=== PATIENT | female | born 1940 | race Caucasian/White ===

== ENCOUNTER 2018-11-23 19:42 | Inpatient (IN) | payer MEDICARE, SELFPAY ==
[2018-11-23] VITALS (7 sets, daily range): BP systolic 97–136; BP diastolic 52–95; PULSE 78–126; RESP 13–19; TEMP 37.1–37.2; O2SAT 96–100; BMI 24.3
--- NOTE | 2018-11-23 19:43 | ED.RN ---
CALLED FOR EKG PER RN REQUEST, PULLED OLD EKGS FOR
[2018-11-23 19:56] LABS: Bedside Glucose 135 mg/dL (70-110)
--- NOTE | 2018-11-23 19:59 | EKG12_ITS ---
Test Reason : Blood Pressure : / mmHG Vent. Rate : 123 BPM Atrial Rate : 123 BPM P-R Int : 142 ms QRS Dur : 082 ms QT Int : 284 ms P-R-T Axes : 057 001 124 degrees QTc Int : 406 ms Sinus tachycardia Possible Left atrial enlargement Low voltage QRS Nonspecific ST and T wave abnormality Abnormal ECG Confirmed by YEMI MEADE, JEAN CARLOS ([id number]), purchase request editor MICHELE CARUSO ([id number]) on 11/26/2018 12:52:55 PM Referred By: ANDREAS Confirmed By:JEAN CARLOS BRAGG MD
--- NOTE | 2018-11-23 20:01 | RAD_ITS ---
STUDY: X-RAY - RIGHT HIP REASON FOR EXAM: Female, 78 years old. Weakness. Fall. Pain. TECHNIQUE: 4 views of the hip. COMPARISON: None. FINDINGS: There is generalized osteopenia. There is a right total hip arthroplasty in anatomic alignment. No complications are identified. There is mild arthrosis of the left hip. Normal visualized superior and inferior pubic rami and ischial tuberosities. RAD/HIP, UNI W/ Pelvis 2-3 Views IMPRESSION: No acute abnormality. Electronically Signed: Nathaniel Mane MD at 20:43 EST , Service support ,
--- NOTE | 2018-11-23 20:01 | RAD_ITS ---
STUDY: X-RAY - RIGHT SHOULDER REASON FOR EXAM: Female, 78 years old. Weakness. Possible fall. TECHNIQUE: 2 view(s) of the shoulder. COMPARISON: None. FINDINGS: There is generalized osteopenia. There is mild arthrosis of the glenohumeral joint. There is mild arthrosis of the acromioclavicular joint. Normal acromion. There is sclerosis and cystic change in the greater tuberosity of the humeral head. The soft tissue structures are unremarkable. Normal visualized pulmonary apex. RAD/Shoulder min 2 Views IMPRESSION: Osteopenia with osteoarthrosis as described. No acute pathology. Electronically Signed: Nathaniel Mane MD at 20:42 EST , Service support ,
--- NOTE | 2018-11-23 20:01 | CT_ITS ---
STUDY: CT BRAIN WITHOUT CONTRAST REASON FOR EXAM: Female, 78 years old. Fall. Weakness. RADIATION DOSAGE (If Supplied By Facility): CTDIvol = ( 44.99 ) mGy, DLP = ( 779.24 ) mGycm TECHNIQUE: Transaxial CT imaging of the brain was performed without administration of intravenous contrast material. Individualized dose optimization techniques were used for this CT. COMPARISON: None. FINDINGS: There is no acute bleed or infarct. There are chronic ischemic and atrophic changes. The ventricles are normal in configuration. There is no hydrocephalus. The visualized paranasal sinuses are clear. The mastoid air cells are well aerated. There is no skull fracture. CT/Brain/Head without Contrast IMPRESSION: No acute intracranial abnormality. Chronic ischemic and atrophic changes. Electronically Signed: Antoni Henderson, at 20:48 EST Tel , Service support ,
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
--- NOTE | 2018-11-23 20:17 | RAD_ITS ---
STUDY: X-RAY CHEST REASON FOR EXAM: Female, 78 years old. Weakness. Possible fall. TECHNIQUE: Single frontal view of the chest. COMPARISON: None. FINDINGS: The lungs are hyperexpanded and there are healed granulomatous calcifications. There is no demonstrated pleural abnormality. There is moderate cardiomegaly. Normal mediastinum and patricia. Normal visualized pulmonary arteries. There is atherosclerotic calcification of the aortic arch with tortuosity. Normal visualized thoracic spine. Normal visualized ribs, clavicles, and shoulders. There is no demonstrated abnormality of the visualized soft tissue structures of the upper abdomen. RAD/Chest 1 View (Portable) IMPRESSION: Moderate cardiomegaly with hyperexpansion. No acute abnormality. Electronically Signed: Nathaniel Mane MD at 20:41 EST , Service support ,
[2018-11-23 20:19] LABS: International Normalized Ratio 1.1; Partial Thromboplast Time 25.2 Seconds (24.1-36.2); Prothrombin Time (Protime)PT. 13.9 SECONDS (11.7-14.9)
[2018-11-23 20:28] LABS: Absolute Lymphocyte Count 0.88 X10^3/ul (0.83-4.51); Absolute Neutrophil Count 4.6 X10^3/uL (2.0-7.7); Basophil# 0.09 X10^3/uL; Basophil% 1.5 % (0-1); Eosinophil# 0.05 X10^3/uL; Eosinophils% 0.8 % (0-5); Hematocrit 12.9 % (37-47); Lymphocyte # 0.88 X10^3/ul (4.0); Lymphocyte % 14.4 % (19-41); Mean Corp Hgb Conc 25.6 g/gl (32-36); Mean Corpuscular Hgb 15.7 pg (27.0-32.0); Mean Corpuscular Volume 61.4 fL (81-99); Mean Platelet Vol. 8.8 fl (6.2-12.0); Monocyte# 0.51 X10^3/uL; Monocyte% 8.3 % (0-10); Neutrophil # 4.58 X10^3/uL (2.7-7.7); Neutrophil % 74.8 % (47-70); Platelet Count 330 K/mm3 (150-450); RBC Distribution Width CV 19.5 % (11.6-14.6); RBC Distribution Width SD 44.4 fl (35.1-43.9); White Blood Count 6.1 K/mm3 (4.4-11.0)
--- NOTE | 2018-11-23 20:29 | ED.RN ---
lab called result on this of hemoglobin of 3.3, dr sanchez notified. nfo at this time.
[2018-11-23 20:30] LABS: ALB/GLOB Ratio 1.1 RATIO (0.9-2.4); AST(SGOT) 7 U/L (15-37); Alanine Aminotransfer ALT/SGPT 12 U/L (13-56); Albumin, Serum 3.2 g/dL (3.2-5.0); Alkaline Phosphatase 50 U/L (45-117); Anion Gap 9 (5-15); BUN 21 mg/dL (7-18); BUN/Creat Ratio 11.1 RATIO (10-20); Calcium,Total 8.2 mg/dL (8.5-10.1); Chloride 100 mmol/L (98-107); Differential Indicated SCAN CRITERIA MET; EST Glomerular Filtration Rate 27 mL/min (>60); Est Glom Filt Rate - Afr Amer 33 mL/min (>60); Globulin 2.9 g/dL (2.2-4.2); Glucose 150 mg/dL (74-106); Hemoglobin 3.3 g/dl (12.0-15.0); POSITIVE COUNT YES; POSITIVE DIFFERENTIAL NO; POSITIVE MORPHOLOGY YES; Potassium 3.5 mmol/L (3.5-5.1); Protein, Total 6.1 g/dL (6.4-8.2); Sodium Level 133 mmol/L (136-145)
[2018-11-23 20:32] LABS: Lactic Acid 1.5 mmol/L (0.4-2.0)
[2018-11-23 20:57] LABS: Alcohol, Blood (Medical)-Serum < 3.0 mg/dL
[2018-11-23 21:31] LABS: Anisocytosis 2+; Hypochromasia 3+; Platelet Estimate ADEQUATE (ADEQ)
--- NOTE | 2018-11-23 21:40 | ED.RN ---
pt tolerating blood transfusion,unit increased to 150cc/hr,will monitor.
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
--- NOTE | 2018-11-23 23:25 | ED.RN ---
first unit of prbc flushing with normal saline.second iv started in l hand,flsuhed without difficult.
--- NOTE | 2018-11-23 23:40 | NURSING ---
Pt arrives to ICU, awake and oriented. Pt appears without distress and has no complaints. Orientation to room and call light provided.
[2018-11-24] VITALS (35 sets, daily range): BP systolic 104–166; BP diastolic 57–109; PULSE 59–107; RESP 15–23; TEMP 36.5–37.2; O2SAT 93–100; BMI 23.1
--- NOTE | 2018-11-24 00:08 | ED.RN ---
2356 report given to jesus kim.
--- NOTE | 2018-11-24 00:32 | ED.RN ---
2348 ONE UNIT PRBC FINISHED FLUSHING AND COMPLETE WITHOUT DISTRESS.
[2018-11-24 01:20] LABS: Ferritin 5 ng/mL (8-252); Iron 213 ug/dL (50-170); Iron Binding Capacity,Total 406 ug/dL (250-450); LDH 174 U/L (84-246); PERCENT IRON SATURATION 52.5 % (15.0-55.0)
--- NOTE | 2018-11-24 01:25 | ED.RN ---
2300 PT STATED SHE NEEDED TO VOID AND REFUSED A BED CAMPUZANO,WITH ASSIST OF ONE HELPED UP TO THE BSC.PT STATED AFTER ABOUT 5 MINUTES THAT SHE DID NOT HAVE TO GO AFTER ALL.WITH ONE ASSIST HELPED PT BACK TO THE BED.PT TOLERATED WITH DISTRESS.
[2018-11-24 01:55] LABS: Mucous, Urine 0 SEEN /hpf (<or=2+); Red Blood Cells-Urine 0 SEEN /hpf (0-5); Squamous Epithelial Cells - UA 0 SEEN /hpf (5-10)
[2018-11-24 02:00] LABS: Color, Urine Yellow (Yellow); Glucose, Dipstick Normal (Normal); Ketone-Dipstick Negative (Negative); Leukocyte Esterase-Dipstick 25 /ul (Negative); Nitrite-Dipstick Positive (Negative); Occult Blood-Urine Negative /ul (Negative); Protein-Dipstick Negative (Negative); Urine Bilirubin Dipstick Negative (Negative); Urine Clarity Clear (Clear); Urine Urobilinogen Normal (Normal)
[2018-11-24 02:06] LABS: Bacteria 3+ /hpf (None Seen)
[2018-11-24 02:07] LABS: White Blood Cells 0-5 SEEN /hpf (0-5)
[2018-11-24 02:15] LABS: Amphetamine Urine VISTA NEGATIVE (<1000 ng/mL); Barbiturate Urine VISTA NEGATIVE (< 200 ng/mL); Benzodiazepine Urine VISTA NEGATIVE (< 200 ng/mL); Cocaine Urine VISTA NEGATIVE (< 300 ng/mL); Ecstacy Urine VISTA NEGATIVE (< 500 ng/mL); Methadone Urine VISTA NEGATIVE (< 300 ng/mL); PCP Urine VISTA NEGATIVE (< 25 ng/mL); THC Urine VISTA NEGATIVE (< 50 ng/mL); Vista UDS pH Range 6
[2018-11-24 03:56] LABS: Differential Indicated SCAN CRITERIA MET; Hematocrit 18.9 % (37-47); Mean Corp Hgb Conc 28.6 g/gl (32-36); Mean Platelet Vol. 8.6 fl (6.2-12.0); Neutrophil % 72.1 % (47-70); POSITIVE COUNT YES; POSITIVE DIFFERENTIAL NO; POSITIVE MORPHOLOGY YES; Platelet Count 289 K/mm3 (150-450); RBC Distribution Width CV 25.2 % (11.6-14.6); RBC Distribution Width SD 63.1 fl (35.1-43.9); White Blood Count 6.5 K/mm3 (4.4-11.0)
[2018-11-24 03:57] LABS: Absolute Lymphocyte Count 0.95 X10^3/ul (0.83-4.51); Absolute Neutrophil Count 4.7 X10^3/uL (2.0-7.7); Basophil# 0.06 X10^3/uL; Basophil% 0.9 % (0-1); Eosinophil# 0.07 X10^3/uL; Eosinophils% 1.1 % (0-5); Lymphocyte # 0.95 X10^3/ul (4.0); Lymphocyte % 14.6 % (19-41); Monocyte# 0.72 X10^3/uL; Monocyte% 11.1 % (0-10)
[2018-11-24 04:00] LABS: Hemoglobin 5.4 g/dl (12.0-15.0)
[2018-11-24 04:12] LABS: Anion Gap 11 (5-15); BUN 21 mg/dL (7-18); BUN/Creat Ratio 13.5 RATIO (10-20); Chloride 105 mmol/L (98-107); Creatinine, Serum 1.55 mg/dL (0.55-1.02); EST Glomerular Filtration Rate 35 mL/min (>60); Est Glom Filt Rate - Afr Amer 42 mL/min (>60); Estimated Creatinine Clearance 30.03 ml/min; Glucose 93 mg/dL (74-106); Potassium 3.6 mmol/L (3.5-5.1); Sodium Level 139 mmol/L (136-145)
[2018-11-24 04:38] LABS: Anisocytosis 1+; Differential Comment SCAN; Hypochromasia 2+; Microcytosis 2+
[2018-11-24] MEDS: tiZANidine HCl 2 MG Tablet PO ×3 (06:00→21:08)
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
--- NOTE | 2018-11-24 08:11 | ECHOD_ITS ---
Reason For Study: Dyspnea/SOB Procedure This was a 2D Doppler, Color Flow transthoracic echocardiogram. The study was technically difficult. Exam performed portable in ICU/CCU. Left Ventricle Normal LV size. Left ventricular systolic function is normal. The estimated ejection fraction is 55 %. Diastolic function is indeterminate. No regional wall motion abnormalities noted. Right Ventricle Normal RV size. Normal systolic function. Atria The left atrium is mildly enlarged. Normal right atrium. No doppler evidence for ASD. Mitral Valve There is no mitral annular calcification. Normal mitral valve. Mild-Moderate (1-2+) mitral valve insufficiency. Tricuspid Valve Normal tricuspid valve. Moderate (2+) tricuspid valve insufficiency. Right ventricular systolic pressure estimated to be 48 mmHg. Aortic Valve Trisinus/trileaflet aortic valve. Mild focal aortic valve calcification. Trivial aortic valve insufficiency. Pulmonic Valve The pulmonic valve is not well visualized. Trivial pulmonic valve insufficiency. Great Vessels Normal sized aortic root. Pericardium/Pleural No pericardial effusion. MMode/2D Measurements & Calculations LVIDd: 4.4 cm IVSd: 1.4 cm Ao root diam: 3.1 cm LVIDs: 3.2 cm LVPWd: 1.2 cm LA dimension: 2.9 cm RVDd: 3.9 cm FS: 27.7 % LAV(MOD-bp): 58.7 ml LVAd ap4: 28.5 cm2 SV(MOD-sp4): 42.6 ml LAV(MOD-bp) Indexed: 33.2 ml/m2 EDV(MOD-sp4): 87.4 ml LAV(MOD-sp2): 53.3 ml EDV(sp4-el): 89.0 ml LAV(MOD-sp4): 60.4 ml LVAs ap4: 19.5 cm2 ESV(MOD-sp4): 44.7 ml ESV(sp4-el): 44.0 ml EF(MOD-sp4): 48.8 % EF(sp4-el): 50.6 % SV(sp4-el): 45.0 ml LA A4 area: 21.9 cm2 RA A4 area: 17.2 cm2 Time Measurements MV dec time: 0.19 sec Doppler Measurements & Calculations MV E max enrrique: 70.6 cm/sec Lat Peak E' Enrrique: 9.6 cm/sec Med Peak E' Enrrique: 6.6 cm/sec MV A max enrrique: 100.3 cm/sec E/E' lat: 7.3 E/E' med: 10.6 MV E/A: 0.70 MV V2 max: 102.2 cm/sec MV P1/2t max enrrique: 78.1 cm/sec Ao V2 max: 101.9 cm/sec MV max P.2 mmHg MV P1/2t: 57.6 msec Ao max P.2 mmHg MV V2 mean: 48.0 cm/sec MV mean P.2 mmHg MV dec slope: 397.4 cm/sec2 MV V2 VTI: 31.4 cm MVA(P1/2t): 3.8 cm2 LV V1 max: 85.2 cm/sec MR max enrrique: 506.7 cm/sec PA V2 max: 65.2 cm/sec LV V1 max P.9 mmHg MR max P.7 mmHg MR mean enrrique: 404.2 cm/sec MR mean P.2 mmHg MR VTI: 199.4 cm TR max enrrique: 317.3 cm/sec TR max P.3 mmHg Interpretation Summary The study was technically difficult. Left ventricular systolic function is normal. The estimated ejection fraction is 55 %. The left atrium is mildly enlarged. Mild-Moderate (1-2+) mitral valve insufficiency. Moderate (2+) tricuspid valve insufficiency. Mild focal aortic valve calcification. Trivial aortic valve insufficiency. Trivial pulmonic valve insufficiency. Right ventricular systolic pressure estimated to be 48 mmHg. Diastolic function is indeterminate. Ordering Physician: Javad Bennett Referring Physician: KELLEY Christensen M.D. Performed By: Adonis Rebollar RCS
[2018-11-24] MEDS: 0.9% NaCl Peripheral Flush Adult/Peds IV (08:28)
[2018-11-24 08:57] LABS: Immature Platelet Fraction 4.1 % (1.0-7.9); RET-HE 14.2 pg (30-35)
[2018-11-24] MEDS: CHLORHEXIDINE GLUC 2% CLOTH 1 EACH TOWELETTE TOPICAL (10:04)
[2018-11-24 10:26] LABS: Hematocrit 25.5 % (37-47); Hemoglobin 7.8 g/dl (12.0-15.0)
--- NOTE | 2018-11-24 11:31 | CASEMGMT ---
JOSE MOONEY assessment: Face to Face with patient for initial transition planning/care coordination assessment. JOSE MOONEY introduced self and role at [facility], pt voices understanding and consents to assessment at this time. Pt is lying in bed in no distress at this time. Pt is A/Ox4 at this time and answers questions appropriately at this time. Care providers, pharmacy, and demographics verified at this time. PCP: [facility] Specialists: Pt states currently has no specialists. Preferred Pharmacy: [facility] Insurance: [facility] Prescription Benefit: [facility] Living Will/HPOA: Pt states has LW/HPOA but they are not currently on file at [facility] at this time. Pt states her daughters are HPOA. LNOK: Greer Valdez, daughter; Patito Vilchis, daughter Living Arrangements: Pt states lives alone in a mobile home and states no concerns at home at this time. Pt states that she has been completing ADL's at home. Transportation: Pt states she quit driving in July 2018 but family drives and states no transportation concerns at this time. DME/HHC: Pt states has a shower chair, walker, cane, and w/c and states no need for any further DME at this time. Pt states no hx HHC or SNF in the past. Pt states no concerns with going home at time of discharge. Pt is disabled. Pt states does not smoke or drink ETOH. Pt states no further concerns/needs at this time. CM to follow for any further discharge planning/needs. Advised pt to ask for CM if any further questions/concerns/needs arise, voices understanding. Plan: Home, pending PT/OT [place]. SStgudelia GARCIA CM
[2018-11-24] MEDS: Gabapentin 100 MG Capsule 200 MG PO ×2 (12:16→17:03)
[2018-11-24] MEDS: DULoxetine Hcl 60 MG Capsule PO (12:16)
[2018-11-24] MEDS: Cephalexin 500 MG Capsule PO ×2 (13:24→21:08)
[2018-11-24 16:11] LABS: Hematocrit 27.1 % (37-47); Hemoglobin 8.5 g/dl (12.0-15.0)
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
[2018-11-24] MEDS: traZODone 100 MG Tablet PO (21:08)
[2018-11-24] MEDS: Pantoprazole Sodium 40 MG Tablet PO (21:08)
[2018-11-25 02:29] VITALS: BP 126/65; PULSE 71; RESP 16; TEMP 36.2; O2SAT 96
[2018-11-25] MEDS: Cephalexin 500 MG Capsule PO ×3 (05:08→19:31)
[2018-11-25] MEDS: tiZANidine HCl 2 MG Tablet PO ×2 (05:08→13:18)
[2018-11-25 07:08] LABS: Absolute Lymphocyte Count 0.73 X10^3/ul (0.83-4.51); Basophil# 0.06 X10^3/uL; Basophil% 0.8 % (0-1); Eosinophil# 0.09 X10^3/uL; Eosinophils% 1.2 % (0-5); Hematocrit 26.9 % (37-47); Hemoglobin 8.4 g/dl (12.0-15.0); Lymphocyte # 0.73 X10^3/ul (4.0); Lymphocyte % 9.5 % (19-41); Mean Corp Hgb Conc 31.2 g/gl (32-36); Mean Corpuscular Hgb 22.7 pg (27.0-32.0); Mean Corpuscular Volume 72.7 fL (81-99); Mean Platelet Vol. 8.8 fl (6.2-12.0); Monocyte# 0.77 X10^3/uL; Neutrophil # 6.04 X10^3/uL (2.7-7.7); Neutrophil % 78.1 % (47-70); Platelet Count 237 K/mm3 (150-450); RBC Distribution Width SD 61.1 fl (35.1-43.9); White Blood Count 7.7 K/mm3 (4.4-11.0)
[2018-11-25 07:17] VITALS: BP 131/81; PULSE 66; RESP 16; TEMP 36.3; O2SAT 96
[2018-11-25 07:23] LABS: Differential Indicated SCAN CRITERIA MET; POSITIVE COUNT NO; POSITIVE DIFFERENTIAL NO; POSITIVE MORPHOLOGY YES
[2018-11-25 07:29] LABS: Anion Gap 9 (5-15); BUN 16 mg/dL (7-18); BUN/Creat Ratio 15.1 RATIO (10-20); Calcium,Total 8.2 mg/dL (8.5-10.1); Chloride 105 mmol/L (98-107); Creatinine, Serum 1.06 mg/dL (0.55-1.02); EST Glomerular Filtration Rate 54 mL/min (>60); Est Glom Filt Rate - Afr Amer 65 mL/min (>60); Estimated Creatinine Clearance 43.69 ml/min; Glucose 139 mg/dL (74-106); Magnesium 1.7 mg/dL (1.6-2.6); Phosphorus 2.1 mg/dL (2.5-4.9); Potassium 3.2 mmol/L (3.5-5.1); Sodium Level 137 mmol/L (136-145)
[2018-11-25 07:42] LABS: Anisocytosis 2+; Differential Comment SCANNED; Hypochromasia 2+; Microcytosis 2+
--- NOTE | 2018-11-25 07:54 | PCM.PN.INT ---
Subjective: Patient transferred out of the intensive care unit yesterday. Patient did well overnight. Patient reports a good appetite and did not have any complications from her standpoint. Patient states she feels back to her baseline. Objective: Echocardiogram was reviewed. This showed an EF of 55% with elevated pulmonary artery pressures of 48. General: Alert, Oriented x3, Cooperative, No apparent distress, - - Speaking in full sentences. HEENT: Atraumatic, PERRLA, EOMI, Normocephalic, - - No scleral icterus or injection noted. Oral: Moist Mucosa, No Gingival or Mucosal Lesions/ Ulcerations Neck: Supple, No JVD, No Nodes, Trachea Midline Lungs: Clear to auscultation, Normal air movement, No rhonchi, No wheeze, No rales, - - Symmetric expansion. No dullness to percussion. Cardiovascular: Regular rate, Regular Rhythm, Normal S1, Normal S2, No murmurs, No rub noted, No Gallop Abdomen: Bowel Sounds Present, Soft, Non Tender, Non-Distended Extremities: No clubbing, No cyanosis, No edema Skin: No rashes, No breakdown Musculoskeletal: No Tenderness to Palpation of Joints or Extremities Lymphatic: No Cervical, Supraclavicular, or Inguinal Adenopathy Neurological: Cranial nerves II-XII grossly intact, Neuro grossly intact Psych/Mental Status: Appropriate, Flat Affect Vital Signs Temp Pulse Resp BP Pulse Ox 36.3 C L 66 16 131/81 H 96 11/25/18 07:17 11/25/18 07:17 11/25/18 07:17 11/25/18 07:17 11/25/18 07:17 Oxygen Flow Rate (L/min) 2 Oxygen Delivery Method Room Air Weight: 61.3 kg Body Mass Index (BMI) 23.1 Finger Stick Blood Glucose 135 Intake and Output for Last 24 Hours 11/23/18 11/24/18 11/25/18 23:59 23:59 23:59 Intake Total 385 / 385 2005 Output Total 950 / 950 Balance 385 / 385 1056 / 1056 Labs (Last 48 Hours) 11/23/18 11/23/18 11/23/18 19:48 19:55 19:55 WBC 6.1 RBC 2.10 L Hgb 3.3 L* Hct 12.9 L MCV 61.4 L MCH 15.7 L MCHC 25.6 L RDW 19.5 H RDW Differential 44.4 H Plt Count 330 MPV 8.8 Immature Gran % (Auto) 0.200 Neut % (Auto) 74.8 H Lymph % (Auto) 14.4 L [place] % (Auto) 8.3 Eos % (Auto) 0.8 Baso % (Auto) 1.5 H Absolute Neuts (auto) 4.6 Absolute Lymphs (auto) 0.88 Total Counted Not Reportable Differential Comment Diff Path Review May foll Platelet Estimate ADEQUATE Immature Plt Fraction Hypochromasia 3+ Anisocytosis 2+ Microcytosis Retic Count Immature Retic Fraction Retic Hgb Equivalent Haptoglobin PT 13.9 INR 1.1 APTT 25.2 Sodium Potassium Chloride Carbon Dioxide Anion Gap BUN Creatinine Estim Creat Clear Calc Est GFR (MDRD) Af Amer Est GFR (MDRD) Non-Af BUN/Creatinine Ratio Glucose Lactic Acid Calcium Phosphorus Magnesium Iron TIBC Iron Saturation Ferritin Total Bilirubin AST ALT Alkaline Phosphatase Lactate Dehydrogenase Troponin I Total Protein Albumin Globulin Albumin/Globulin Ratio Vitamin B12 Folate Urine Color Urine Clarity Urine pH Ur Specific [place] Urine Protein Urine Glucose (UA) Urine Ketones Urine Occult Blood Urine Nitrite Urine Bilirubin Urine Urobilinogen Ur Leukocyte Esterase Urine RBC Urine WBC Ur Squamous Epith Cells Urine Bacteria Urine Mucus Urine Opiates Screen Urine Methadone Screen Ur Barbiturates Screen Ur Phencyclidine Scrn Ur Amphetamines Screen U Methamphetamin-MDMA U Benzodiazepines Scrn Urine Cocaine Screen U Cannabinoids Screen Ur Drug Screen Comment Ethyl Alcohol POC Glucose 135 H Blood Type Antibody Screen Crossmatch 11/23/18 11/23/18 11/23/18 19:55 19:55 19:55 WBC RBC Hgb Hct MCV MCH MCHC RDW RDW Differential Plt Count MPV Immature Gran % (Auto) Neut % (Auto) Lymph % (Auto) [place] % (Auto) Eos % (Auto) Baso % (Auto) Absolute Neuts (auto) Absolute Lymphs (auto) Total Counted Differential Comment Diff Path Review Platelet Estimate Immature Plt Fraction Hypochromasia Anisocytosis Microcytosis Retic Count Immature Retic Fraction Retic Hgb Equivalent Haptoglobin PT INR APTT Sodium 133 L Potassium 3.5 Chloride 100 Carbon Dioxide 24.0 Anion Gap 9 BUN 21 H Creatinine 1.90 H Estim Creat Clear Calc 24.50 Est GFR (MDRD) Af Amer 33 L Est GFR (MDRD) Non-Af 27 L BUN/Creatinine Ratio 11.1 Glucose 150 H Lactic Acid 1.5 Calcium 8.2 L Phosphorus Magnesium Iron TIBC Iron Saturation Ferritin Total Bilirubin 0.80 AST 7 L ALT 12 L Alkaline Phosphatase 50 Lactate Dehydrogenase Troponin I 0.059 H Total Protein 6.1 L Albumin 3.2 Globulin 2.9 Albumin/Globulin Ratio 1.1 Vitamin B12 Folate Urine Color Urine Clarity Urine pH Ur Specific [place] Urine Protein Urine Glucose (UA) Urine Ketones Urine Occult Blood Urine Nitrite Urine Bilirubin Urine Urobilinogen Ur Leukocyte Esterase Urine RBC Urine WBC Ur Squamous Epith Cells Urine Bacteria Urine Mucus Urine Opiates Screen Urine Methadone Screen Ur Barbiturates Screen Ur Phencyclidine Scrn Ur Amphetamines Screen U Methamphetamin-MDMA U Benzodiazepines Scrn Urine Cocaine Screen U Cannabinoids Screen Ur Drug Screen Comment Ethyl Alcohol < 3.0 POC Glucose Blood Type Antibody Screen Crossmatch 11/23/18 11/23/18 11/23/18 19:55 19:55 19:55 WBC RBC Hgb Hct MCV MCH MCHC RDW RDW Differential Plt Count MPV Immature Gran % (Auto) Neut % (Auto) Lymph % (Auto) [place] % (Auto) Eos % (Auto) Baso % (Auto) Absolute Neuts (auto) Absolute Lymphs (auto) Total Counted Differential Comment Diff Path Review Platelet Estimate Immature Plt Fraction 4.1 Hypochromasia Anisocytosis Microcytosis Retic Count 1.80 H Immature Retic Fraction 18.60 H Retic Hgb Equivalent 14.2 L Haptoglobin PT INR APTT Sodium Potassium Chloride Carbon Dioxide Anion Gap BUN Creatinine Estim Creat Clear Calc Est GFR (MDRD) Af Amer Est GFR (MDRD) Non-Af BUN/Creatinine Ratio Glucose Lactic Acid Calcium Phosphorus Magnesium Iron TIBC Iron Saturation Ferritin Total Bilirubin AST ALT Alkaline Phosphatase Lactate Dehydrogenase Troponin I Total Protein Albumin Globulin Albumin/Globulin Ratio Vitamin B12 Folate Urine Color Urine Clarity Urine pH Ur Specific [place] Urine Protein Urine Glucose (UA) Urine Ketones Urine Occult Blood Urine Nitrite Urine Bilirubin Urine Urobilinogen Ur Leukocyte Esterase Urine RBC Urine WBC Ur Squamous Epith Cells Urine Bacteria Urine Mucus Urine Opiates Screen Urine Methadone Screen Ur Barbiturates Screen Ur Phencyclidine Scrn Ur Amphetamines Screen U Methamphetamin-MDMA U Benzodiazepines Scrn Urine Cocaine Screen U Cannabinoids Screen Ur Drug Screen Comment Ethyl Alcohol POC Glucose Blood Type A POSITIVE Antibody Screen NEGATIVE Crossmatch See Detail See Detail 11/24/18 11/24/18 11/24/18 00:25 00:25 00:25 WBC RBC Hgb Hct MCV MCH MCHC RDW RDW Differential Plt Count MPV Immature Gran % (Auto) Neut % (Auto) Lymph % (Auto) [place] % (Auto) Eos % (Auto) Baso % (Auto) Absolute Neuts (auto) Absolute Lymphs (auto) Total Counted Differential Comment Diff Path Review Platelet Estimate Immature Plt Fraction Hypochromasia Anisocytosis Microcytosis Retic Count Immature Retic Fraction Retic Hgb Equivalent Haptoglobin Pending PT INR APTT Sodium Potassium Chloride Carbon Dioxide Anion Gap BUN Creatinine Estim Creat Clear Calc Est GFR (MDRD) Af Amer Est GFR (MDRD) Non-Af BUN/Creatinine Ratio Glucose Lactic Acid Calcium Phosphorus Magnesium Iron 213 H TIBC 406 Iron Saturation 52.5 Ferritin 5 L Total Bilirubin AST ALT Alkaline Phosphatase Lactate Dehydrogenase 174 Troponin I Total Protein Albumin Globulin Albumin/Globulin Ratio Vitamin B12 Pending Folate 8.60 Urine Color Urine Clarity Urine pH Ur Specific [place] Urine Protein Urine Glucose (UA) Urine Ketones Urine Occult Blood Urine Nitrite Urine Bilirubin Urine Urobilinogen Ur Leukocyte Esterase Urine RBC Urine WBC Ur Squamous Epith Cells Urine Bacteria Urine Mucus Urine Opiates Screen Urine Methadone Screen Ur Barbiturates Screen Ur Phencyclidine Scrn Ur Amphetamines Screen U Methamphetamin-MDMA U Benzodiazepines Scrn Urine Cocaine Screen U Cannabinoids Screen Ur Drug Screen Comment Ethyl Alcohol POC Glucose Blood Type Antibody Screen Crossmatch 11/24/18 11/24/18 11/24/18 00:25 01:45 01:45 WBC RBC Hgb Hct MCV MCH MCHC RDW RDW Differential Plt Count MPV Immature Gran % (Auto) Neut % (Auto) Lymph % (Auto) [place] % (Auto) Eos % (Auto) Baso % (Auto) Absolute Neuts (auto) Absolute Lymphs (auto) Total Counted Differential Comment Diff Path Review Platelet Estimate Immature Plt Fraction Hypochromasia Anisocytosis Microcytosis Retic Count Immature Retic Fraction Retic Hgb Equivalent Haptoglobin PT INR APTT Sodium Potassium Chloride Carbon Dioxide Anion Gap BUN Creatinine Estim Creat Clear Calc Est GFR (MDRD) Af Amer Est GFR (MDRD) Non-Af BUN/Creatinine Ratio Glucose Lactic Acid Calcium Phosphorus Magnesium Iron TIBC Iron Saturation Ferritin Total Bilirubin AST ALT Alkaline Phosphatase Lactate Dehydrogenase Troponin I 0.073 H Total Protein Albumin Globulin Albumin/Globulin Ratio Vitamin B12 Folate Urine Color Yellow Urine Clarity Clear Urine pH 6.0 Ur Specific [place] 1.010 Urine Protein Negative Urine Glucose (UA) Normal Urine Ketones Negative Urine Occult Blood Negative Urine Nitrite Positive H Urine Bilirubin Negative Urine Urobilinogen Normal Ur Leukocyte Esterase 25 H Urine RBC 0 SEEN Urine WBC 0-5 SEEN Ur Squamous Epith Cells 0 SEEN Urine Bacteria 3+ Urine Mucus 0 SEEN Urine Opiates Screen NEGATIVE Urine Methadone Screen NEGATIVE Ur Barbiturates Screen NEGATIVE Ur Phencyclidine Scrn NEGATIVE Ur Amphetamines Screen NEGATIVE U Methamphetamin-MDMA NEGATIVE U Benzodiazepines Scrn NEGATIVE Urine Cocaine Screen NEGATIVE U Cannabinoids Screen NEGATIVE Ur Drug Screen Comment Ethyl Alcohol POC Glucose Blood Type Antibody Screen Crossmatch 11/24/18 11/24/18 11/24/18 03:30 03:30 03:30 WBC 6.5 RBC 2.70 L Hgb 5.4 L* Hct 18.9 L MCV 70.0 L MCH 20.0 L MCHC 28.6 L RDW 25.2 H RDW Differential 63.1 H Plt Count 289 MPV 8.6 Immature Gran % (Auto) 0.200 Neut % (Auto) 72.1 H Lymph % (Auto) 14.6 L [place] % (Auto) 11.1 H Eos % (Auto) 1.1 Baso % (Auto) 0.9 Absolute Neuts (auto) 4.7 Absolute Lymphs (auto) 0.95 Total Counted Not Reportable Differential Comment SCAN Diff Path Review May foll Platelet Estimate Immature Plt Fraction Hypochromasia 2+ Anisocytosis 1+ Microcytosis 2+ Retic Count Immature Retic Fraction Retic Hgb Equivalent Haptoglobin PT INR APTT Sodium 139 Potassium 3.6 Chloride 105 Carbon Dioxide 23.0 Anion Gap 11 BUN 21 H Creatinine 1.55 H Estim Creat Clear Calc 30.03 Est GFR (MDRD) Af Amer 42 L Est GFR (MDRD) Non-Af 35 L BUN/Creatinine Ratio 13.5 Glucose 93 Lactic Acid Calcium 8.0 L Phosphorus Magnesium Iron TIBC Iron Saturation Ferritin Total Bilirubin AST ALT Alkaline Phosphatase Lactate Dehydrogenase Troponin I 0.076 H Total Protein Albumin Globulin Albumin/Globulin Ratio Vitamin B12 Folate Urine Color Urine Clarity Urine pH Ur Specific [place] Urine Protein Urine Glucose (UA) Urine Ketones Urine Occult Blood Urine Nitrite Urine Bilirubin Urine Urobilinogen Ur Leukocyte Esterase Urine RBC Urine WBC Ur Squamous Epith Cells Urine Bacteria Urine Mucus Urine Opiates Screen Urine Methadone Screen Ur Barbiturates Screen Ur Phencyclidine Scrn Ur Amphetamines Screen U Methamphetamin-MDMA U Benzodiazepines Scrn Urine Cocaine Screen U Cannabinoids Screen Ur Drug Screen Comment Ethyl Alcohol POC Glucose Blood Type Antibody Screen Crossmatch 11/24/18 11/24/18 11/24/18 06:55 10:10 16:02 WBC RBC Hgb 7.8 L 8.5 L Hct 25.5 L 27.1 L MCV MCH MCHC RDW RDW Differential Plt Count MPV Immature Gran % (Auto) Neut % (Auto) Lymph % (Auto) [place] % (Auto) Eos % (Auto) Baso % (Auto) Absolute Neuts (auto) Absolute Lymphs (auto) Total Counted Differential Comment Diff Path Review Platelet Estimate Immature Plt Fraction Hypochromasia Anisocytosis Microcytosis Retic Count Immature Retic Fraction Retic Hgb Equivalent Haptoglobin PT INR APTT Sodium Potassium Chloride Carbon Dioxide Anion Gap BUN Creatinine Estim Creat Clear Calc Est GFR (MDRD) Af Amer Est GFR (MDRD) Non-Af BUN/Creatinine Ratio Glucose Lactic Acid Calcium Phosphorus Magnesium Iron TIBC Iron Saturation Ferritin Total Bilirubin AST ALT Alkaline Phosphatase Lactate Dehydrogenase Troponin I 0.062 H Total Protein Albumin Globulin Albumin/Globulin Ratio Vitamin B12 Folate Urine Color Urine Clarity Urine pH Ur Specific [place] Urine Protein Urine Glucose (UA) Urine Ketones Urine Occult Blood Urine Nitrite Urine Bilirubin Urine Urobilinogen Ur Leukocyte Esterase Urine RBC Urine WBC Ur Squamous Epith Cells Urine Bacteria Urine Mucus Urine Opiates Screen Urine Methadone Screen Ur Barbiturates Screen Ur Phencyclidine Scrn Ur Amphetamines Screen U Methamphetamin-MDMA U Benzodiazepines Scrn Urine Cocaine Screen U Cannabinoids Screen Ur Drug Screen Comment Ethyl Alcohol POC Glucose Blood Type Antibody Screen Crossmatch 11/25/18 11/25/18 06:35 06:35 WBC 7.7 RBC 3.70 L Hgb 8.4 L Hct 26.9 L MCV 72.7 L MCH 22.7 L MCHC 31.2 L RDW 23.0 H RDW Differential 61.1 H Plt Count 237 MPV 8.8 Immature Gran % (Auto) 0.400 Neut % (Auto) 78.1 H Lymph % (Auto) 9.5 L [place] % (Auto) 10.0 Eos % (Auto) 1.2 Baso % (Auto) 0.8 Absolute Neuts (auto) 6.0 Absolute Lymphs (auto) 0.73 L Total Counted Not Reportable Differential Comment SCANNED Diff Path Review Platelet Estimate Immature Plt Fraction Hypochromasia 2+ Anisocytosis 2+ Microcytosis 2+ Retic Count Immature Retic Fraction Retic Hgb Equivalent Haptoglobin PT INR APTT Sodium 137 Potassium 3.2 L Chloride 105 Carbon Dioxide 23.0 Anion Gap 9 BUN 16 Creatinine 1.06 H Estim Creat Clear Calc 43.69 Est GFR (MDRD) Af Amer 65 Est GFR (MDRD) Non-Af 54 L BUN/Creatinine Ratio 15.1 Glucose 139 H Lactic Acid Calcium 8.2 L Phosphorus 2.1 L Magnesium 1.7 Iron TIBC Iron Saturation Ferritin Total Bilirubin AST ALT Alkaline Phosphatase Lactate Dehydrogenase Troponin I Total Protein Albumin Globulin Albumin/Globulin Ratio Vitamin B12 Folate Urine Color Urine Clarity Urine pH Ur Specific [place] Urine Protein Urine Glucose (UA) Urine Ketones Urine Occult Blood Urine Nitrite Urine Bilirubin Urine Urobilinogen Ur Leukocyte Esterase Urine RBC Urine WBC Ur Squamous Epith Cells Urine Bacteria Urine Mucus Urine Opiates Screen Urine Methadone Screen Ur Barbiturates Screen Ur Phencyclidine Scrn Ur Amphetamines Screen U Methamphetamin-MDMA U Benzodiazepines Scrn Urine Cocaine Screen U Cannabinoids Screen Ur Drug Screen Comment Ethyl Alcohol POC Glucose Blood Type Antibody Screen Crossmatch Microbiology 11/23/18 20:00 Stool Stool Occult Blood (BRENDA) - Final Medical Necessity - Tobacco Use Smoking Status: Never smoker Assessment/Plan All Active Problems Severe anemia (Acute) Generalized weakness (Acute) RECOMMENDATIONS: 1. Transfuse to keep hemoglobin greater than 7 2. Await hematologic workup 3. Electrolyte repletion 4. Monitor closely for refeeding syndrome 5. Hemodynamically stable on room air. Will sign off from a critical care perspective IMPRESSIONS: 1. Severe microcytic hypochromic anemia She has responded well to transfusions. Okay to discontinue Protonix from my perspective. Patient does have an extensive hematologic workup currently pending. 2. Acute kidney injury Improving with hydration. Patient denies any history of renal dysfunction in the past. Patient does report decreased urine output last week and there is significant concerns for dehydration leading to prerenal etiology. Patient is receiving significant amounts of fluid secondary to blood transfusions, so we will hold off on boluses for now. Encourage p.o. intake. Continue to monitor closely. 3. Possible dilated cardiomyopathy Ruled out. Patient with increased cardiac silhouette noted on chest x-ray. Echocardiogram does show an elevated pulmonary artery pressure, so cardiomegaly on chest x-ray may be secondary to pulmonary artery pressures. This would be evaluated as an outpatient and does not require further workup during this hospitalization. 4. Chronic pain syndrome/GERD/neuropathy/reported hypertension/anxiety/depression/poor nutritional status Complicates care, management, recovery and prognosis. Would only give narcotics if patient is having uncontrolled pain. Patient does not appear to have a good diet at home. Will likely require monitoring of electrolytes closely as patient may suffer from refeeding syndrome. Code Visit Inpatient E&M: 53458 Subs Hosp L2
[2018-11-25 08:15] VITALS: O2SAT 91
[2018-11-25] MEDS: Gabapentin 100 MG Capsule 200 MG PO ×3 (08:47→16:49)
[2018-11-25] MEDS: Pantoprazole Sodium 40 MG Tablet PO (08:47)
[2018-11-25] MEDS: DULoxetine Hcl 60 MG Capsule PO (08:47)
[2018-11-25 09:38] LABS: Haptoglobin 120 mg/dL (34-200)
[2018-11-25 11:37] VITALS: BP 129/72; PULSE 81; RESP 16; TEMP 36.6; O2SAT 98
--- NOTE | 2018-11-25 11:49 | DCINST_ITS ---
- Discharge Diagnoses Current Active Problems: Current Active and Chronic Problems Severe anemia (Acute) Generalized weakness (Acute) Chronic pain disorder (Chronic) You will use the following diet at home:: No restrictions Your food should be the consistency of: Regular Your liquids should be the consistency of: Regular/Thin Discharge Activity: Return to Normal Activity Weight Bearing Status: Full weight bearing Allergies/Adverse Reactions: Allergies No Known Allergies Allergy (Verified 11/23/18 19:46) Medications to take at Discharge Celecoxib 100 mg PO DAILY 11/23/18 Duloxetine HCl 60 mg PO DAILY 11/23/18 Gabapentin [Neurontin] 200 mg PO TID 11/23/18 Guaifenesin/Dextromethorphan [Mucosa Dm 400-20 mg Tablet] 1 each PO PRN PRN 11/23/18 Lisinopril/Hydrochlorothiazide [Lisinopril-Hctz 20-12.5 mg Tab] 2 tab PO DAILY 11/23/18 Lorazepam [Ativan] 1 mg PO TID PRN PRN 11/23/18 Oxycodone HCl/Acetaminophen [Oxycodone-Acetaminophen 10-325] 1 tab PO Q6H PRN PRN 11/23/18 Tizanidine HCl 2 mg PO TID 11/23/18 traZODone [Desyrel] 100 mg PO QHS PRN PRN 11/23/18 Cephalexin [Keflex] 500 mg PO Q8 #15 cap 11/25/18 Iron Polysaccharide Complex [Ferrex 150] 150 mg PO DAILYCM #30 cap 11/25/18 Pantoprazole Sodium [Protonix] 40 mg PO DAILY #30 tab 11/25/18 The following prescriptions were given: Cephalexin [Keflex] 500 mg PO Q8 #15 cap Iron Polysaccharide Complex [Ferrex 150] 150 mg PO DAILYCM #30 cap Pantoprazole Sodium [Protonix] 40 mg PO DAILY #30 tab Primary Care Physician: Erick Christensen III, MD [Primary Care Provider] - Please follow up with your Primary Care Physician in: 7-10 days Test Results: Test results from this visit will be discussed in further detail at your follow- up appointment, if applicable.
[2018-11-25 14:02] VITALS: BP 154/91; PULSE 83; RESP 16; TEMP 36.7; O2SAT 100
[2018-11-25] MEDS: Acetaminophen 325 MG Tablet 650 MG PO (14:58)
[2018-11-25 19:26] VITALS: BP 155/90; PULSE 88; RESP 16; TEMP 37.1; O2SAT 99
[2018-11-26 10:53] LABS: Pathologist Review Reviewed
[2018-11-26 10:54] LABS: Pathologist Review Reviewed
[2018-11-26 12:19] LABS: Vitamin B12 498 pg/mL (211-911)
--- NOTE | 2018-11-28 10:29 | DS.PCM_ITS ---
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 Patient is reclusive at home and stays in her bedroom at home according to the daughters. Workup in the emergency room included labs which showed a hemoglobin of 3.3, patient's creatinine was elevated at 1.55. Problem was elevated at 0.073. Patient was typed and crossed for packed red blood cells, she was admitted to the ICU and seen in consultation by pulmonary medicine. Patient refused diagnostic testing, the rationale for diagnostic testing was explained to the patient but she totally refused to have any testing done to diagnose the etiology of her anemia. Patient's iron study showed an iron level of 213 but her ferritin was 5 and she was felt to be iron deficient. Patient was transfused a total of its of packed red blood cells, on 11/25/18, patient was seen and examined: On examination she appeared in good health and spirits. Vital signs as documented. Skin warm and dry and without overt rashes. Neck without JVD. Lungs clear. Heart exam notable for regular rhythm, normal sounds and absence of murmurs, rubs or gallops. Abdomen unremarkable and without evidence of organomegaly, masses, or abdominal aortic enlargement. Extremities nonedematous. Neuro: Cranial nerves II through XII are grossly intact, no focal motor deficits were noted, sensation to light touch and pinprick is intact. Psych: Patient is alert and oriented x3, she does not appear anxious or depressed On 11/25/18, patient was seen and examined felt to be in stable condition for discharge home. - Physical Exam Vital Signs Temp Pulse Resp BP Pulse Ox 98.7 F 88 16 155/90 H 99 11/25/18 19:26 11/25/18 19:26 11/25/18 19:26 11/25/18 19:26 11/25/18 19:26 Oxygen Flow Rate (L/min) 2 Oxygen Delivery Method Room Air Weight: 61.3 kg Body Mass Index (BMI) 23.1 Finger Stick Blood Glucose 135 Discharge Activity: Return to Normal Activity Weight Bearing Status: Full weight bearing Home Medications: Medications to take at Discharge Celecoxib 100 mg PO DAILY 11/23/18 Duloxetine HCl 60 mg PO DAILY 11/23/18 Gabapentin [Neurontin] 200 mg PO TID 11/23/18 Guaifenesin/Dextromethorphan [Mucosa Dm 400-20 mg Tablet] 1 each PO PRN PRN 11/23/18 Lisinopril/Hydrochlorothiazide [Lisinopril-Hctz 20-12.5 mg Tab] 2 tab PO DAILY 11/23/18 Lorazepam [Ativan] 1 mg PO TID PRN PRN 11/23/18 Oxycodone HCl/Acetaminophen [Oxycodone-Acetaminophen 10-325] 1 tab PO Q6H PRN PRN 11/23/18 Tizanidine HCl 2 mg PO TID 11/23/18 traZODone [Desyrel] 100 mg PO QHS PRN PRN 11/23/18 Cephalexin [Keflex] 500 mg PO Q8 #15 cap 11/25/18 Iron Polysaccharide Complex [Ferrex 150] 150 mg PO DAILYCM #30 cap 11/25/18 Pantoprazole Sodium [Protonix] 40 mg PO DAILY #30 tab 11/25/18 Following Prescrptions Were Given to Patient: Cephalexin [Keflex] 500 mg PO Q8 #15 cap Iron Polysaccharide Complex [Ferrex 150] 150 mg PO DAILYCM #30 cap Pantoprazole Sodium [Protonix] 40 mg PO DAILY #30 tab Primary Care Physician: Erick Christensen III, MD [Primary Care Provider] - Please follow up with your Primary Care Physician in: 7-10 days Disposition: Home Minutes spent on discharge:: 32 Patient Condition:: Stable Medical Necessity - Tobacco Use Smoking Status: Never smoker Meaningful Use Info Meaningful Use Diagnoses (Choose all that apply): None applicable Code Visit Inpatient E&M: 97829 Disch Hosp
== END 2018-11-25 20:25 | disposition home or self-care (01) | DRG 812 ==
LOC: ED 20:47 → ICU 23:09 → MS2 11-24 12:40
PROVIDERS: Internal Medicine Critical Care Medicine; Admitting Provider Hospitalist; Emergency Provider Emergency Medicine; Family Provider Family Medicine; PCP Family Medicine; Visit Provider Internal Medicine
DX: D50.0 Iron deficiency anemia secondary to blood loss (chronic) (principal); K92.2 Gastrointestinal hemorrhage, unspecified; R53.81 Other malaise; G89.29 Other chronic pain; M19.90 Unspecified osteoarthritis, unspecified site; F32.9 Major depressive disorder, single episode, unspecified; R74.8 Abnormal levels of other serum enzymes; R79.89 Other specified abnormal findings of blood chemistry; Z23 Encounter for immunization; N30.90 Cystitis, unspecified without hematuria; B96.89 Other specified bacterial agents as the cause of diseases classified elsewhere; M21.379 Foot drop, unspecified foot; Z87.820 Personal history of traumatic brain injury; F68.8 Other specified disorders of adult personality and behavior; F09 Unspecified mental disorder due to known physiological condition; K21.9 Gastro-esophageal reflux disease without esophagitis; G62.9 Polyneuropathy, unspecified
CPT/HCPCS: 36415; 70450; 71045; 73030; 73502; 80048; 80053; 80307; 80320; 81001; 82274; 82607; 82728; 82746; 82962; 83010; 83540; 83550; 83605; 83615; 83735; 84100; 84484; 85014; 85018; 85025; 85045; 85610; 85730; 86644; 86850; 86900; 86920; 86922; 93005; 93306; 97161; 97166; 97802; 99285; J1756; J7040; J7050; P9016; P9040; Q9957; 90686; A4216; G0480

== ENCOUNTER 2019-06-14 19:21 | Emergency (ER) | payer MEDICARE, SELFPAY ==
[2018-11-24 00:09] VITALS: BMI 23.1
[2019-06-14 19:22] VITALS: BP 191/113; PULSE 118; RESP 16; TEMP 37; O2SAT 97; BMI 23.4
[2019-06-14 19:28] VITALS: RESP 16
--- NOTE | 2019-06-14 19:57 | EKG12_ITS ---
Test Reason : GENERAL ILLNESS Blood Pressure : / mmHG Vent. Rate : 128 BPM Atrial Rate : 128 BPM P-R Int : 132 ms QRS Dur : 096 ms QT Int : 316 ms P-R-T Axes : 064 -16 098 degrees QTc Int : 461 ms Sinus tachycardia Biatrial enlargement Nonspecific ST and T wave abnormality Abnormal ECG Confirmed by SERJIO MEADE, SHANIQUE ([id number]), index editor RADHA MCKENZIE ([id number]) on 06/17/2019 1:03:43 PM Referred By: MANDO Confirmed By:SHANIQUE BASSETT MD
[2019-06-14] MEDS: Ondansetron 4 MG/2 ML Vial IV (20:05)
[2019-06-14] MEDS: 0.9% Normal Saline 1,000 ML 1000 ML IV (20:05)
[2019-06-14 20:08] LABS: Absolute Lymphocyte Count 0.46 X10^3/uL (0.83-4.51); Basophil# 0.02 X10^3/uL; Basophil% 0.1 % (0-1); Hematocrit 40.7 % (37-47); Hemoglobin 14.1 g/dL (12.0-15.0); Lymphocyte # 0.46 X10^3/ul (4.0); Lymphocyte % 2.9 % (19-41); Mean Corp Hgb Conc 34.6 g/dL (32-36); Mean Corpuscular Hgb 29.3 pg (27.0-32.0); Mean Corpuscular Volume 84.6 fL (81-99); Mean Platelet Vol. 9.6 fl (6.2-12.0); Monocyte# 0.65 X10^3/uL; Monocyte% 4.1 % (0-10); NRBC Flagged by Analyzer 0 % (0-5); Neutrophil # 14.72 X10^3/uL (2.7-7.7); Neutrophil % 92.3 % (47-70); POSITIVE DIFFERENTIAL YES; Platelet Count 305 K/mm3 (150-450); RBC Distribution Width CV 13.5 % (11.6-14.6); RBC Distribution Width SD 42.4 fl (35.1-43.9); Red Blood Count 4.81 M/mm3 (4.2-5.4); White Blood Count 15.9 K/mm3 (4.4-11.0)
[2019-06-14 20:11] LABS: Differential Indicated SCAN CRITERIA MET
[2019-06-14 20:22] LABS: Anion Gap 13 (5-15); BUN 22 mg/dL (7-18); Calcium,Total 10.4 mg/dL (8.5-10.1); Chloride 93 mmol/L (98-107); Creatinine, Serum 1.05 mg/dL (0.55-1.02); EST Glomerular Filtration Rate 54 mL/min (>60); Est Glom Filt Rate - Afr Amer 65 mL/min (>60); Estimated Creatinine Clearance 43.63 ml/min; Glucose 219 mg/dL (74-106); Sodium Level 131 mmol/L (136-145)
[2019-06-14 20:26] LABS: Bacteria 0 SEEN /hpf (None Seen); Mucous, Urine 0 SEEN /hpf (<or=2+); Red Blood Cells-Urine 0 SEEN /hpf (0-5); Squamous Epithelial Cells - UA 0 SEEN /hpf (5-10); White Blood Cells 0 SEEN /hpf (0-5)
--- NOTE | 2019-06-14 20:29 | ED.DCSUM_ITS ---
History of Present Illness Chief Complaint: General Illness Detail of Chief Complaint: Nausea and vomiting, orthostatic symptoms malaise Informant: Patient, Family Onset: Today - Nausea and vomiting today, Days - General illness and poor p.o. intake Context: Gradual Onset - Regarding general illness, Sudden Onset - Regarding nausea and vomiting Timing: Intermittent Quality: Nausea and vomiting Location: GI Current Severity: Moderate Maximum Severity: Severe Worsened by: Nothing Relieved by: Nothing Associated Symptoms: Generalized weakness and orthostatic symptoms Narrative: Patient is an elderly woman who presents with generalized weakness, orthostatic symptoms with nausea and vomiting. There is no hematemesis, melena hematochezia. Last bowel movement was yesterday. She reports vomiting numerous times. The nausea vomiting is not positional. Denies vertigo. Denies headache. Denies visual, ocular auditory symptoms. Denies trouble with speech or swallowing. She denies cardiac or respiratory symptoms. She states during my history she developed chest pain. The pain was sharp. The pain was nonradiating and there was no associated symptoms. She is concerned her hemoglobin is low. She had similar symptoms when she was diagnosed with a hemoglobin 3.3. Prior similar symptoms: Yes Recent Illness/Hospitalization: No - Past Medical History (1) Generalized weakness Status: Acute (2) Severe anemia Status: Acute (3) Chronic pain disorder Status: Chronic Past Medical History - Allergies and Home Meds Allergies/Adverse Reactions: Allergies No Known Allergies Allergy (Verified 06/14/19 19:27) Primary Care Physician: Erick Christensen III, MD [Primary Care Provider] - Prior records reviewed: Yes Surgical History: total hip arthroplasty, - - Tonsillectomy Lives: Alone Smoking Status: Former smoker Alcohol: None Drugs: None Review of Systems General: Reports: Malaise. Denies: Chills, Fever, Subjective, Sweats, Weight loss, - Eyes: Denies: Visual changes - bilaterally, Blurred Vision - bilaterally, Diplopia ENT: Denies: Rhinorrhea, Sore throat Cardiovascular: Reports: Chest pain. Denies: Palpitations, Heart racing Respiratory: Denies: Dyspnea, Cough, Dyspnea on exertion Gastrointestinal: Reports: Abdominal pain, Nausea, Vomiting. Denies: Diarrhea, Constipation, Melena, Hematochezia Genitourinary: Denies: Dysuria, Hematuria, Frequency Musculoskeletal: Denies: Myalgias, Arthralgias, Neck pain, Back pain, Extremity Pain Skin: Denies: Rash, Wounds Neurological: Reports: Weakness. Denies: Headache, Parasthesia, Numbness Psych: Denies: Depression Hematologic: Denies: Easy bruising, Easy bleeding Allergy: Denies: Uticaria, Swelling of the mouth Physical Exam Vital Signs/Narrative: Vital Signs Temp Pulse Resp BP Pulse Ox 06/14/19 19:28 16 06/14/19 19:22 98.6 F 118 H 16 191/113 H 97 Inital Vital Signs reviewed: Yes General: Well nourished, Well developed, No Acute Distress Head: Normocephalic, Atraumatic Eyes: Perrl, EOMI. Negative for: Pale conjunctiva, Scleral icterus ENT: Moist mucous membranes, No rhinorrhea, TM's clear Neck: Supple, Nontender, No lymphadenopathy, No JVD Cardiovascular: Regular rhythm, No murmurs, Normal S1, Normal S2, Tachycardia Respiratory: No distress, CTA bilaterally, Chest nontender Abdomen: Soft, Nontender, Nondistended, Normal bowel sounds Rectal: Deferred Back: Nontender, Normal Inspection. Negative for: CVA tenderness, Spinal tenderness Extremities: Nontender, No edema Skin: Normal color, No rash. Negative for: Cyanosis, Diaphoresis, Jaundice Neurological: Alert, Oriented x3, Cranial nerves II-XII grossly intact, Normal Sensation, Normal DTR. Negative for: Normal Strength - 3/5 motor strength dorsiflexion right Psychological: Normal affect Diagnostic/Tx/Re-eval Laboratory Results 06/14/19 06/14/19 06/14/19 19:45 19:45 20:19 WBC 15.9 H RBC 4.81 Hgb 14.1 Hct 40.7 MCV 84.6 MCH 29.3 MCHC 34.6 RDW Std Deviation 42.4 RDW Coeff of Alvarado 13.5 Plt Count 305 MPV 9.6 Immature Gran % (Auto) 0.600 Neut % (Auto) 92.3 H Lymph % (Auto) 2.9 L [place] % (Auto) 4.1 Eos % (Auto) 0.0 Baso % (Auto) 0.1 Absolute Neuts (auto) Not Reportable Absolute Lymphs (auto) 0.46 L Absolute Nucleated RBC 0.00 Nucleated RBC % 0 Differential Comment SCANNED Sodium 131 L Potassium 3.0 L Chloride 93 L Carbon Dioxide 25.0 Anion Gap 13 BUN 22 H Creatinine 1.05 H Estim Creat Clear Calc 43.63 Est GFR (MDRD) Af Amer 65 Est GFR (MDRD) Non-Af 54 L BUN/Creatinine Ratio 21.0 H Glucose 219 H Calcium 10.4 H Urine Color Yellow Urine Clarity Clear Urine pH 7.0 Ur Specific Stanton 1.015 Urine Protein 500 H Urine Glucose (UA) 250 H Urine Ketones 15 H Urine Occult Blood 25 H Urine Nitrite Negative Urine Bilirubin Negative Urine Urobilinogen Normal Ur Leukocyte Esterase Negative Urine RBC 0 SEEN Urine WBC 0 SEEN Ur Squamous Epith Cells 0 SEEN Urine Bacteria 0 SEEN Urine Mucus 0 SEEN Was formed elevated white count is all likely secondary to the nausea and vomiting. Potassium slightly low at 3.0. CO2 and anion gap are normal. Creatinine slightly elevated 1.05. UA is unremarkable with specific gravity 1.015. Blood sugar is elevated 219. - EKG Initial EKG Interpretation: Sinus Tachycardia - Ventricular rate is 128. W[place] interval is 132 ms. QRS durations 96 ms. QT duration is 316 ms. There is nonspecific ST-T wave changes noted in the lateral leads. Pringle is normal. - Medical Decision Making History of nausea vomiting numerous times IV was established. She was treated with antiemetic. Blood work was obtained to assess electrolytes, CO2/anion gap and renal function. With history of fatigue will obtain CBC to assess H&H. She received IV fluids and antiemetic. Patient reports resolution of her indigestion heartburn after GI cocktail. P.o. challenge was ordered. If she passes p.o. challenge will discharge prescription of Zofran. Patient passed p.o. challenge. She is sitting up and smiling. 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
[2019-06-14 20:31] VITALS: BP 175/117; PULSE 112; RESP 18; TEMP 37.3; O2SAT 98
[2019-06-14 20:36] LABS: Differential Comment SCANNED
[2019-06-14 20:44] LABS: Color, Urine Yellow (Yellow); Glucose, Dipstick 250 mg/dl (Normal); Ketone-Dipstick 15 mg/dl (Negative); Leukocyte Esterase-Dipstick Negative /ul (Negative); Nitrite-Dipstick Negative (Negative); Occult Blood-Urine 25 /ul (Negative); Protein-Dipstick 500 mg/dl (Negative); Specific Gravity, Urine 1.015 (1.002-1.030); Urine Bilirubin Dipstick Negative (Negative); Urine Clarity Clear (Clear); Urine Urobilinogen Normal (Normal)
[2019-06-14] MEDS: DiphenhydrAMINE 50 MG/ML Syringe 12.5 MG IV (20:52)
[2019-06-14] MEDS: Morphine 4 MG/ML Syringe IV (20:54)
[2019-06-14] MEDS: Mag Hydrox/Al Hydrox/Simeth 30 ML UDC PO (21:17)
[2019-06-14 21:41] VITALS: BP 166/101; PULSE 110; RESP 18; O2SAT 97
[2019-06-14 22:45] VITALS: BP 157/103; PULSE 112; RESP 16; O2SAT 98
== END 2019-06-14 22:47 | disposition home or self-care (01) ==
PROVIDERS: Emergency Provider Emergency Medicine; Family Provider Family Medicine; PCP Family Medicine
DX: E86.0 Dehydration (principal); R00.0 Tachycardia, unspecified; R11.2 Nausea with vomiting, unspecified; Z87.891 Personal history of nicotine dependence
CPT/HCPCS: 36415; 80048; 81001; 85025; 93005; 96361; 96374; 96375; 99285; J7030; J2405

== ENCOUNTER 2019-09-13 00:21 | Observation (INO) | payer MEDICARE, SELFPAY ==
[2019-09-13] VITALS (13 sets, daily range): BP systolic 115–146; BP diastolic 70–103; PULSE 70–110; RESP 14–23; TEMP 36.6–37.4; O2SAT 90–100; BMI 22.8; BMI 23.6
--- NOTE | 2019-09-13 00:29 | RAD_ITS ---
STUDY: X-RAY - RIGHT SHOULDER REASON FOR EXAM: Female, 79 years old. Fell over 12 hours ago, complaint of right shoulder pain and bruising on right foot area 3rd-5th metatarsal and fourth toe TECHNIQUE: 3 view(s) of the shoulder. COMPARISON: 11/23/2018. Chest x-ray and shoulder x-ray. FINDINGS: There is an inferior anterior dislocation of the humeral head in relationship to the glenoid. There is generalized osteopenia. Normal acromioclavicular joint. Normal acromion. Normal humeral head and visualized proximal humerus. The soft tissue structures are unremarkable. Normal visualized pulmonary apex. Stable deformity of the lateral 6 right rib. There is no demonstrated pneumothorax. RAD/Shoulder min 2 Views IMPRESSION: Anterior inferior dislocation of the right shoulder joint. Osteoporosis. Remote rib injury. Electronically Signed: Dania Hammer MD at 1:09 EDT , Service support ,
--- NOTE | 2019-09-13 00:32 | RAD_ITS ---
STUDY: X-RAY - RIGHT FOOT CLINICAL: Female, 79 years old. Fell over 12 hours ago, complaint of right shoulder pain and bruising on right foot area 3rd-5th metatarsal and fourth toe TECHNIQUE: 3 view(s) of the foot. COMPARISON: None. FINDINGS: Generalized osteopenia. There is a tiny plantar calcaneal spur. Minimal arthropathy of the visualized subtalar, talonavicular, calcaneocuboid, tarsal and tarsometatarsal articulations. Irregularity along the fifth metatarsal neck without otherwise normal metatarsi. There is degenerative arthrosis of the metatarsophalangeal joint of the hallux . Normal tibial and fibular sesamoid bones. Normal interphalangeal joint of the great toe. Normal phalanges of the great toe. Normal second through fifth metatarsophalangeal joints. Cortical irregularity at the base of the fourth proximal phalanx without intra-articular extension. Flexion of the interphalangeal joints and otherwise normal-appearing phalanges of the lesser toes. The soft tissue structures are unremarkable. RAD/Foot min 3 Views IMPRESSION: Nondisplaced fracture of the base of the fourth proximal phalanx and fifth metatarsal neck suspected. Osteoporosis and mild degenerative changes. Electronically Signed: Dania Hammer MD at 1:06 EDT , Service support ,
[2019-09-13 01:38] LABS: Absolute Lymphocyte Count 0.62 X10^3/uL (0.83-4.51); Absolute Neutrophil Count 9.7 X10^3/uL (2.0-7.7); Basophil# 0.04 X10^3/uL; Basophil% 0.3 % (0-1); Eosinophil# 0.01 X10^3/uL; Eosinophils% 0.1 % (0-5); Hematocrit 34.1 % (37-47); Hemoglobin 11.4 g/dL (12.0-15.0); Lymphocyte # 0.62 X10^3/ul (4.0); Lymphocyte % 5.3 % (19-41); Mean Corp Hgb Conc 33.4 g/dL (32-36); Mean Corpuscular Hgb 29.5 pg (27.0-32.0); Mean Corpuscular Volume 88.1 fL (81-99); Mean Platelet Vol. 9.9 fl (6.2-12.0); Monocyte# 1.36 X10^3/uL; Monocyte% 11.5 % (0-10); NRBC Flagged by Analyzer 0 % (0-5); Neutrophil % 82.2 % (47-70); Platelet Count 250 K/mm3 (150-450); RBC Distribution Width CV 14.2 % (11.6-14.6); Red Blood Count 3.87 M/mm3 (4.2-5.4); White Blood Count 11.8 K/mm3 (4.4-11.0)
[2019-09-13] MEDS: Propofol 200 MG/20 ML Vial IV BOLUS (01:41)
[2019-09-13] MEDS: Propofol 200 MG/20 ML Vial 17 MG IV BOLUS ×2 (01:42→01:43)
--- NOTE | 2019-09-13 01:46 | RAD_ITS ---
STUDY: X-RAY - RIGHT SHOULDER REASON FOR EXAM: Female, 79 years old. Post reduction TECHNIQUE: Single view(s) of the shoulder. COMPARISON: 09/13/2019 0042 hours. 11/23/2018 FINDINGS: Achieved glenohumeral articulation with stable high riding humeral head. Normal acromioclavicular joint. Normal acromion. There is demineralization of the humerus and visualized osseous structures. The soft tissue structures are unremarkable. Normal visualized pulmonary apex. Stable deformity right lateral sixth rib. RAD/Shoulder One View IMPRESSION: Adjacent glenohumeral articulation with stable high riding humeral head and osteoporosis. Electronically Signed: Dania Hammer MD at 2:13 EDT , Service support ,
[2019-09-13 02:03] LABS: AST(SGOT) 16 U/L (15-37); Alanine Aminotransfer ALT/SGPT 16 U/L (13-56); Albumin, Serum 3.6 g/dL (3.2-5.0); Alkaline Phosphatase 65 U/L (45-117); Anion Gap 8 (5-15); BUN 19 mg/dL (7-18); BUN/Creat Ratio 21.5 RATIO (10-20); Calcium,Total 9.3 mg/dL (8.5-10.1); Chloride 90 mmol/L (98-107); Creatinine, Serum 0.88 mg/dL (0.55-1.02); EST Glomerular Filtration Rate 66 mL/min (>60); Est Glom Filt Rate - Afr Amer 80 mL/min (>60); Estimated Creatinine Clearance 57.89 ml/min; Globulin 3.5 g/dL (2.2-4.2); Glucose 137 mg/dL (74-106); Potassium 3.5 mmol/L (3.5-5.1); Protein, Total 7.1 g/dL (6.4-8.2); Sodium Level 128 mmol/L (136-145)
--- NOTE | 2019-09-13 02:12 | ED.DCSUM_ITS ---
- ER Visit Summary Date of Service: 09/13/19 Chief Complaint: Shoulder injury History of Present Illness: The patient is a 79 F who uses a walker and has a chronic right foot drop and sustained a fall today while ambulating injuring the right shoulder. EMS was called and she refused transportation. She called them back tonight stating pain that was unbearable. She received fentanyl in route to the hospital. She denies any headache neck pain back pain. She denies any hip pain. While undressing the patient nursing noted that her right fourth toe was ecchymotic. Patient does note pain there. Physical Examination: Afebrile vital signs are stable Gen: Well-nourished well-developed Head: Normocephalic atraumatic Eyes: Perrl EOMI ENT: TMs clear no rhinorrhea moist mucous membranes Neck: Supple no lymphadenopathy no JVD nontender CVS: Regular rate rhythm no murmurs normal S1-S2 Respiratory: No distress clear to auscultation bilaterally chest nontender Abdomen: Soft nontender nondistended normal bowel sounds no masses Back: Nontender Extremity: Right fourth toe is ecchymotic and swollen tender to palpation limited range of motion of the right shoulder due to pain. There is a probable dislocation and empty sulcus sign. Neurovascular intact Skin: Normal color no rash Neuro: alert orientated ?3 CN II-XII intact normal strength sensation Psych: Normal affect normal mood Test Results: Shoulder films demonstrated a shoulder dislocation. X-rays of the foot demonstrated a fourth phalanx fracture questionable fifth metatarsal fracture but the patient reports no pain there. Emergency Department Course and Treatment: Patient provided informed consent for the use of procedural sedation using propofol for reduction. Reassessment was done. Timeout was performed. Using standard traction and countertraction the shoulder was easily reduced. Patient experienced no apnea hypoxia hypotension or ill effects from the sedation. She was allowed to recover without incident. She was placed in a sling and swath. Patient typically use a walker and now the right arm will be immobile. She also has a broken toe. She lives alone and family lives several hours away. For her safety I think is reasonable to admit her overnight and work on temporary placement for her. Impression: 1. Right shoulder dislocation 2. Reduction by physician 3. Procedural sedation by physician 4. Right fourth toe fracture This note was generated with [employer] software. It may contain incorrect words, spelling, and punctuation that were not noted in review of the chart prior to signing ED Disposition - Plan for ED Patient: Referrals: Erick Christensen III, MD [Primary Care Provider] -
--- NOTE | 2019-09-13 02:26 | PCM.HP.STD ---
Problem List (1) Anterior dislocation of right shoulder Status: Acute Qualifiers: Encounter type: initial encounter Qualified Code(s): S43.014A - Anterior dislocation of right humerus, initial encounter (2) Right fourth proximal phalanx fracture Status: Acute (3) Hypertension Status: Chronic Qualifiers: Hypertension type: essential hypertension Qualified Code(s): I10 - Essential (primary) hypertension (4) Anxiety and depression Status: Chronic (5) Right foot drop Status: Chronic (6) Chronic anemia Status: Chronic (7) Hyponatremia Status: Chronic History of Present Illness Date of Admission: 09/13/19 Chief Complaint: Fall, R shoulder pain The patient is a 79 y/o F, lives alone w/ PMHx: Fe Deficiency anemia, Anxiety and Depression, GERD, HTN, Chronic R Foot Drop with usage Wheeled Walker as well as Chronic Back, Hip pain secondary to prior history of Trauma who presents to the [facility] ED on 09/13/19 who was noted to have fallen on day prior to ED presentation, approximately around noon secondary to she believes her right foot getting caught on her wheeled walker as she refuses to wear her brace secondary to discomfort and swelling of the lower extremity involved, falling in the wall against her right shoulder with call to EMS but at that time declined to present to the ED for evaluation but had ongoing severe R shoulder pain prompting eventual presentation to the ED following EMS all at midnight. Work-up in the ED included T 99.3, heart rate initially 110 with improvement 84, BP initially 125/103 with improvement to 115/73, respiratory rate 15, 100% on 2 L nasal cannula, CBC with WC 11.1, hemoglobin 11.4, platelet 250 with left shift, CMP with sodium 128, chloride 90, BUN/creatinine 19/0.88, glucose 137, total bilirubin 2.30, right plain film of the shoulder with anterior inferior dislocation of the right shoulder joint, plain film of the right foot with a nondisplaced fracture of the base of the fourth proximal phalanx and fifth metatarsal neck, following ED intervention follow-up plain film of the shoulder with adjacent glenohumeral articulation with stable high riding humeral head with sling and swath placed per the ED. In the ED patient was administered propofol for sedation. Past Medical History Past Medical History (Chronic Problems): Chronic Problems Chronic pain disorder (Chronic) Hypertension (Chronic) Anxiety and depression (Chronic) Right foot drop (Chronic) Chronic anemia (Chronic) Hyponatremia (Chronic) Allergies No Known Allergies Allergy (Verified 09/13/19 00:25) Home Medications: Ambulatory Orders Medication Instructions Recorded Celecoxib 100 mg PO DAILY 11/23/18 Duloxetine HCl 60 mg PO DAILY 11/23/18 Gabapentin [Neurontin] 200 mg PO TID 11/23/18 Guaifenesin/Dextromethorphan 1 each PO PRN PRN 11/23/18 [Mucosa Dm 400-20 mg Tablet] Lisinopril/Hydrochlorothiazide 2 tab PO DAILY 11/23/18 [Lisinopril-Hctz 20-12.5 mg Tab] Lorazepam [Ativan] 1 mg PO TID PRN PRN 11/23/18 Tizanidine HCl 2 mg PO TID 11/23/18 traZODone [Desyrel] 100 mg PO QHS PRN PRN 11/23/18 Iron Polysaccharide Complex 150 mg PO DAILYCM #30 cap 11/25/18 [Ferrex 150] Pantoprazole Sodium [Protonix] 40 mg PO DAILY #30 tab 11/25/18 Ondansetron [Zofran Odt] 4 mg PO Q8H PRN PRN #7 tab 06/14/19 Hydroxyzine HCl 25 mg PO DAILY 09/13/19 Surgical History: total hip arthroplasty, - - Tonsillectomy, history of extensive trauma with right hip pin and follow-up right total hip replacement. 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 Review of Systems Constitutional: Reports: Malaise, Weakness, Fatigue. Denies: Chills, Fever, Weight Change HEENT: Denies: Head Aches, Sinus Congestion, Sinus Drainage Cardiovascular: Denies: Chest Pain, Palpitations Respiratory: Denies: Cough, Shortness of breath at rest, Sputum production Gastrointestinal: Reports: Constipation. Denies: Abdominal Pain, Nausea, Vomiting Genitourinary: Denies: Dysuria Musculoskeletal: Reports: Back Pain, Joint Pain, Joint stiffness, Joint swelling, Joint Tenderness, Muscle pain Skin: Denies: Rash, Wounds Neurological: Denies: Numbness, Tingling, Focal weakness Psychiatric: Reports: Anxiety, Depression. Denies: Homicidal Ideations, Suicidal Ideations Hematologic/ Lymphatic: Reports: Anemia. Denies: Easy Bruising, Easy Bleeding VTE Information - Inpt Only VTE Present on Admission: No VTE Mechan Device Prophylaxis: SCD's VTE Pharm Prophylaxis ordered?: Yes Patient Problems: Active and Suspected Problems Anterior dislocation of right shoulder (Acute) Right fourth proximal phalanx fracture (Acute) Subjective: Laying in the ED bed, sling and swath to right upper extremity in place, notes pain control improved. Objective: Physical Examination: General: awake, alert, oriented x 3 and cooperative, laying in the ED bed in no apparent distress, notes pain improved status post ED interventions. Skin: normal color, turgor, no icterus, cyanosis. HEENT: AT/NC, EOMI, PERRLA, dry MM, no carotid bruits or JVD noted. Lungs: CTA bilaterally, moderate effort, mild decrease BL bases, no rales, ronchi or wheezing. Heart: Regular rate and rhythm; no gallop, rub audible. Abdomen: soft, NTTP, ND, normal BS, no HSM. Extremities: no cyanosis, clubbing, right upper extremity with peripheral pulses intact, able to move fingers, sling and swath in place status post reduction of right shoulder dislocation, chronic right foot drop, pain with palpation of the fourth phalanx, no pain with palpation of the fifth metatarsal. Neurological: patient awake, alert, oriented x 3; cognitive function intact; pupils equally reactive to light and accomodation; cranial nerves II-XII grossly normal, moving lower extremities and left upper extremity, able to move hand, currently right upper extremity status post right anterior shoulder reduction, sling and swath in place, chronic right foot drop, strength accordingly severely global decreased secondary to acute presentation and chronic morbidities. Psychiatric: affect appears normal, no acute evidence of depressive or anxiety feelings. - Physical Exam Vital Signs Temp Pulse Resp BP Pulse Ox 99.3 F H 84 15 115/73 100 09/13/19 00:22 09/13/19 01:55 09/13/19 01:55 09/13/19 01:55 09/13/19 01:55 Oxygen Flow Rate (L/min) [5] 2 Oxygen Flow Rate (L/min) [4] 2 Oxygen Flow Rate (L/min) [3] 2 Oxygen Flow Rate (L/min) 2 Oxygen Delivery Method [5] Nasal Cannula Oxygen Delivery Method [4] Nasal Cannula Oxygen Delivery Method [3] Nasal Cannula Oxygen Delivery Method [2] Room Air Oxygen Delivery Method Nasal Cannula Weight: 159 lb 6.307 oz Body Mass Index (BMI) 22.8 Finger Stick Blood Glucose 135 Laboratory Tests Past 24 Hrs 09/13/19 09/13/19 01:28 01:28 WBC 11.8 H RBC 3.87 L Hgb 11.4 L Hct 34.1 L MCV 88.1 MCH 29.5 MCHC 33.4 RDW Std Deviation 45.0 H RDW Coeff of Alvarado 14.2 Plt Count 250 MPV 9.9 Immature Gran % (Auto) 0.600 Neut % (Auto) 82.2 H Lymph % (Auto) 5.3 L [place] % (Auto) 11.5 H Eos % (Auto) 0.1 Baso % (Auto) 0.3 Absolute Neuts (auto) 9.7 H Absolute Lymphs (auto) 0.62 L Nucleated RBC % 0 Sodium 128 L Potassium 3.5 Chloride 90 L Carbon Dioxide 30.0 Anion Gap 8 BUN 19 H Creatinine 0.88 Estim Creat Clear Calc 57.89 Est GFR (MDRD) Af Amer 80 Est GFR (MDRD) Non-Af 66 BUN/Creatinine Ratio 21.5 H Glucose 137 H Calcium 9.3 Total Bilirubin 2.30 H AST 16 ALT 16 Alkaline Phosphatase 65 Total Protein 7.1 Albumin 3.6 Globulin 3.5 Albumin/Globulin Ratio 1.0 Assessment/Plan All Active Problems Severe anemia (Acute) Generalized weakness (Acute) Anterior dislocation of right shoulder (Acute) Right fourth proximal phalanx fracture (Acute) The patient is a 79 y/o F, lives alone w/ PMHx: Fe Deficiency anemia, Anxiety and Depression, GERD, HTN, Chronic R Foot Drop with usage Wheeled Walker as well as Chronic Back, Hip pain secondary to prior history of Trauma who presents to the [facility] ED on 09/13/19 who was noted to have fallen on day prior to ED presentation, approximately around noon secondary to she believes her right foot getting caught on her wheeled walker as she refuses to wear her brace secondary to discomfort and swelling of the lower extremity involved, falling in the wall against her right shoulder. (1) Mechanical Fall w/ R shoulder anterior dislocation and Nondisplaced 4th Proximal Phalanx Fracture: Will admit to [facility], maintain on fall precautions, continue surgery boot to the RLE given no pain with palpation of the 5th metatarsal and per review with ED physician suspect no fracture of that region, karla tape to the 3rd toe, maintain sling and swath with nonweightbearing to the right upper extremity with plan for outpatient orthopedic surgery evaluation, PT, OT as well as case management consultation for discharge planning with given comorbidities likely necessity of short-term SNF placement. PRN pain regimen, antiemetic, continue bowel regimen given patient predisposition to constipation. (2) Hyperglycemia: Admission glucose 137, will continue to trend if remains elevated will obtain hemoglobin A1c if felt appropriate. (3) Normocytic anemia: Admission hemoglobin 11.4, prior 14.1 but prior to this patient was 7-8 range, continue iron supplementation, trend CBC. (4) Hyponatremia, suspected acute on chronic: Admission sodium 128, prior 131, likely chronic component as patient is also on hydrochlorothiazide, will gently hydrate given acute presentation and hold diuretic, repeat CMP in a.m. (5) Elevated total bilirubin: Admission bilirubin 2.30, given current presentation, continue to hydrate, repeat CMP in a.m. (6) Anxiety and depression: We will continue home duloxetine, Ativan although may be contributing to her fall risk given 1 mg p.o. 3 times daily as needed as well as hydroxyzine. (7) Hypertension: Continue home regimen including lisinopril, holding HCTZ, PRN hydralazine. (8) Chronic Pain Syndrome w/ Hx Trauma, Chronic R Foot Drop: Will continue patient home celecoxib, gabapentin, tizanidine with hold if needed given concurrent narcotic usage. Encourage patient to reconsider usage of right foot brace but she is very reticent. Fall precautions. (9) GERD: Continue home PPI. (10) DVT Prophylaxis: SCDs, lovenox. (11) CODE status: Patient daughters present in the room and discussed need for patient to set up healthcare power of criminal defense attorney and living will which she is amenable to and would like discussion with case management as to how this is done. Discussed CODE status at length including difference between FULL code, DNR-CCA and DNR-CC status. Following discussions about the differences in these status, requested very strongly DNR-CCA, no intubation status. Advanced Care Planning Face to Face Time: 16 minutes. Code Visit OBSV E&M: 70992 Initial observation care L3 Procedures: 26567 Advncd Care Plan 30 Min
[2019-09-13] MEDS: 0.9% Normal Saline 1,000 ML 125 ML IV ×2 (03:28→11:09)
[2019-09-13] MEDS: HYDROcodone Bitartrate/Apap 5/325 Tablet PO ×5 (03:29→21:48)
[2019-09-13] MEDS: tiZANidine HCl 2 MG Tablet PO ×3 (05:20→21:47)
[2019-09-13] MEDS: Gabapentin 100 MG Capsule 200 MG PO ×3 (05:20→21:47)
[2019-09-13 07:15] LABS: Absolute Lymphocyte Count 0.92 X10^3/uL (0.83-4.51); Absolute Neutrophil Count 6.5 X10^3/uL (2.0-7.7); Basophil# 0.04 X10^3/uL; Basophil% 0.5 % (0-1); Eosinophil# 0.03 X10^3/uL; Eosinophils% 0.3 % (0-5); Hematocrit 28.3 % (37-47); Hemoglobin 9.5 g/dL (12.0-15.0); Lymphocyte # 0.92 X10^3/ul (4.0); Lymphocyte % 10.5 % (19-41); Mean Corp Hgb Conc 33.6 g/dL (32-36); Mean Corpuscular Hgb 29.6 pg (27.0-32.0); Mean Corpuscular Volume 88.2 fL (81-99); Mean Platelet Vol. 9.6 fl (6.2-12.0); Monocyte% 13.7 % (0-10); NRBC Flagged by Analyzer 0 % (0-5); Neutrophil # 6.53 X10^3/uL (2.7-7.7); Neutrophil % 74.5 % (47-70); Platelet Count 197 K/mm3 (150-450); RBC Distribution Width CV 14.2 % (11.6-14.6); RBC Distribution Width SD 46.1 fl (35.1-43.9); Red Blood Count 3.21 M/mm3 (4.2-5.4); White Blood Count 8.8 K/mm3 (4.4-11.0)
[2019-09-13 07:34] LABS: AST(SGOT) 11 U/L (15-37); Alanine Aminotransfer ALT/SGPT 15 U/L (13-56); Albumin, Serum 2.9 g/dL (3.2-5.0); Alkaline Phosphatase 54 U/L (45-117); Anion Gap 7 (5-15); BUN 18 mg/dL (7-18); BUN/Creat Ratio 20.3 RATIO (10-20); Calcium,Total 8.3 mg/dL (8.5-10.1); Chloride 96 mmol/L (98-107); Creatinine, Serum 0.89 mg/dL (0.55-1.02); EST Glomerular Filtration Rate 66 mL/min (>60); Est Glom Filt Rate - Afr Amer 79 mL/min (>60); Estimated Creatinine Clearance 51.48 ml/min; Globulin 2.9 g/dL (2.2-4.2); Glucose 139 mg/dL (74-106); Potassium 3.2 mmol/L (3.5-5.1); Protein, Total 5.8 g/dL (6.4-8.2); Sodium Level 130 mmol/L (136-145)
[2019-09-13] MEDS: DULoxetine Hcl 60 MG Capsule PO (10:53)
[2019-09-13] MEDS: Enoxaparin 40 MG/0.4 ML Syringe SC (10:53)
[2019-09-13] MEDS: Celecoxib 100 MG Capsule PO (10:53)
[2019-09-13] MEDS: Iron Polysaccharide Complex 150 MG CAPSULE PO ×2 (10:53→21:48)
[2019-09-13] MEDS: Pantoprazole Sodium 40 MG Tablet PO (10:54)
[2019-09-13] MEDS: Lisinopril 40 MG Tablet PO (10:54)
[2019-09-13] MEDS: Polyethylene Glycol 3350 17 GM PACKET 34 GM PO (10:54)
[2019-09-13] MEDS: hydrOXYzine PAM 25 MG Capsule PO (10:54)
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
[2019-09-14 00:41] LABS: Red Blood Cells-Urine 0 SEEN /hpf (0-5)
[2019-09-14 00:43] LABS: Color, Urine Yellow (Yellow); Glucose, Dipstick Normal (Normal); Ketone-Dipstick 5 mg/dl (Negative); Leukocyte Esterase-Dipstick 25 /ul (Negative); Nitrite-Dipstick Negative (Negative); Occult Blood-Urine Negative /ul (Negative); Protein-Dipstick 30 mg/dl (Negative); Urine Bilirubin Dipstick Negative (Negative); Urine Clarity Sl. Cloudy (Clear); Urine Urobilinogen Normal (Normal)
[2019-09-14 00:50] LABS: Bacteria RARE /hpf (None Seen); Hyaline Cast 0-5 SEEN /lpf (0-5); Mucous, Urine RARE /hpf (<or=2+); Squamous Epithelial Cells - UA 0-5 SEEN /hpf (5-10); White Blood Cells 0-5 SEEN /hpf (0-5)
[2019-09-14 02:45] VITALS: BP 120/70; PULSE 83; RESP 18; TEMP 36.6; O2SAT 97
[2019-09-14] MEDS: HYDROcodone Bitartrate/Apap 5/325 Tablet PO ×3 (02:50→16:02)
[2019-09-14] MEDS: tiZANidine HCl 2 MG Tablet PO ×2 (05:15→16:04)
[2019-09-14] MEDS: Gabapentin 100 MG Capsule 200 MG PO ×2 (05:17→16:04)
[2019-09-14 07:17] LABS: Anion Gap 6 (5-15); BUN 21 mg/dL (7-18); BUN/Creat Ratio 25.5 RATIO (10-20); Calcium,Total 8.1 mg/dL (8.5-10.1); Chloride 92 mmol/L (98-107); Creatinine, Serum 0.82 mg/dL (0.55-1.02); EST Glomerular Filtration Rate 72 mL/min (>60); Est Glom Filt Rate - Afr Amer 87 mL/min (>60); Estimated Creatinine Clearance 55.87 ml/min; Glucose 109 mg/dL (74-106); Potassium 3.9 mmol/L (3.5-5.1); Sodium Level 124 mmol/L (136-145)
--- NOTE | 2019-09-14 10:04 | DCINST_ITS ---
- Discharge Diagnoses Current Active Problems: Current Active and Chronic Problems Anterior dislocation of right shoulder (Acute) Right fourth proximal phalanx fracture (Acute) Hypertension (Chronic) Anxiety and depression (Chronic) Right foot drop (Chronic) Chronic anemia (Chronic) Hyponatremia (Chronic) You will use the following diet at home:: Cardiac Your food should be the consistency of: Regular Your liquids should be the consistency of: Regular/Thin Discharge Activity: Return to Normal Activity Weight Bearing Status: Weight bearing as tolerated Call your doctor if you observe: Fever of 101 or Higher, Shortness of breath, Dizziness, Fainting spells, Swelling in the ankles, Chest pain, Increased palpitations (irregular heartbeat) Additional Instructions: CBC and BMP in 3-5 days to monitor anemai and sodium level. Decrease your lisinopril/HCTZ to 1 tab daily because of the decrease in your sodium level. Allergies/Adverse Reactions: Allergies No Known Allergies Allergy (Verified 09/13/19 00:25) Medications to take at Discharge Celecoxib 100 mg PO DAILY 11/23/18 Duloxetine HCl 60 mg PO DAILY 11/23/18 Gabapentin [Neurontin] 200 mg PO TID 11/23/18 Guaifenesin/Dextromethorphan [Mucosa Dm 400-20 mg Tablet] 1 each PO BID PRN PRN 11/23/18 Lorazepam [Ativan] 1 mg PO TID PRN PRN 11/23/18 Tizanidine HCl 2 mg PO TID 11/23/18 traZODone [Desyrel] 150 mg PO QHS PRN PRN 11/23/18 Pantoprazole Sodium [Protonix] 40 mg PO DAILY #30 tab 11/25/18 Ondansetron [Zofran Odt] 4 mg PO Q8H PRN PRN #7 tab 06/14/19 Hydroxyzine HCl 25 mg PO DAILY 09/13/19 Iron Polysaccharide Complex [Iferex 150] 150 mg PO BID 09/13/19 Lisinopril/Hydrochlorothiazide [Lisinopril-Hctz 20-12.5 mg Tab] 1 tab PO DAILY #0 09/14/19 Primary Care Physician: Erick Christensen III, MD [Primary Care Provider] - Please follow up with your Primary Care Physician in: 3-5 days Test Results: Test results from this visit will be discussed in further detail at your follow- up appointment, if applicable.
[2019-09-14] MEDS: Polyethylene Glycol 3350 17 GM PACKET 34 GM PO (10:12)
[2019-09-14] MEDS: Iron Polysaccharide Complex 150 MG CAPSULE PO (10:12)
[2019-09-14] MEDS: DULoxetine Hcl 60 MG Capsule PO (10:12)
[2019-09-14] MEDS: hydrOXYzine PAM 25 MG Capsule PO (10:12)
[2019-09-14] MEDS: Pantoprazole Sodium 40 MG Tablet PO (10:12)
[2019-09-14] MEDS: Celecoxib 100 MG Capsule PO (10:13)
[2019-09-14] MEDS: Lisinopril 40 MG Tablet PO (10:14)
[2019-09-14] MEDS: Enoxaparin 40 MG/0.4 ML Syringe SC (10:14)
[2019-09-14 10:16] VITALS: BP 132/89; PULSE 100; RESP 18; TEMP 36.7; O2SAT 99
--- NOTE | 2019-09-14 11:36 | DS.PCM_ITS ---
Discharge Date and Diagnosis - Problem List Patient Problems: Active and Suspected Problems Anterior dislocation of right shoulder (Acute) Right fourth proximal phalanx fracture (Acute) Date of Admission: 09/13/19 Date of Discharge: 09/14/19 - Primary Discharge Diagnosis Active and Suspected Problems Anterior dislocation of right shoulder (Acute) Right fourth proximal phalanx fracture (Acute) - Secondary Discharge Diagnosis Chronic Problems Chronic pain disorder (Chronic) Hypertension (Chronic) Anxiety and depression (Chronic) Right foot drop (Chronic) Chronic anemia (Chronic) Hyponatremia (Chronic) Hospital Course and Treatment Imaging Results: XR R Shoulder: IMPRESSION: Anterior inferior dislocation of the right shoulder joint. Osteoporosis. Remote rib injury. XR R Foot: IMPRESSION: Nondisplaced fracture of the base of the fourth proximal phalanx and fifth metatarsal neck suspected. Osteoporosis and mild degenerative changes. XR R Shoulder: IMPRESSION: Adjacent glenohumeral articulation with stable high riding humeral head and osteoporosis. Consults: None Operations: None Procedures: None Summary of Care Provided: Per HPI: The patient is a 79 y/o F, lives alone w/ PMHx: Fe Deficiency anemia, Anxiety and Depression, GERD, HTN, Chronic R Foot Drop with usage Wheeled Walker as well as Chronic Back, Hip pain secondary to prior history of Trauma who presents to the [facility] ED on 09/13/19 who was noted to have fallen on day prior to ED presentation, approximately around noon secondary to she believes her right foot getting caught on her wheeled walker as she refuses to wear her brace secondary to discomfort and swelling of the lower extremity involved, falling in the wall against her right shoulder with call to EMS but at that time declined to present to the ED for evaluation but had ongoing severe R shoulder pain prompting eventual presentation to the ED following EMS all at midnight. Work- up in the ED included T 99.3, heart rate initially 110 with improvement 84, BP initially 125/103 with improvement to 115/73, respiratory rate 15, 100% on 2 L nasal cannula, CBC with WC 11.1, hemoglobin 11.4, platelet 250 with left shift, CMP with sodium 128, chloride 90, BUN/creatinine 19/0.88, glucose 137, total bilirubin 2.30, right plain film of the shoulder with anterior inferior dislocation of the right shoulder joint, plain film of the right foot with a nondisplaced fracture of the base of the fourth proximal phalanx and fifth metatarsal neck, following ED intervention follow-up plain film of the shoulder with adjacent glenohumeral articulation with stable high riding humeral head with sling and swath placed per the ED. In the ED patient was administered propofol for sedation. Hospital Course: 1. Mechanical fall with right shoulder anterior dislocation and a nondisplaced fourth proximal phalanx [id number] female with a history of chronic brain injury as well as significant depression presents from home after a fall. She dislocated her right shoulder and had a nondisplaced fourth proximal phalanx fracture. She has some pain in her foot but is able to ambulate and her shoulder was put back into place in the ER. She does not want to go to a assisted for rehab and she is okay with home health with PT as an outpat ient. This was set up prior to her discharge home today. I discussed with her that she needs to follow-up with orthopedic surgery as an outpatient for this fracture and to maintain her arm in a sling until follow-up with orthopedic surgery as well. She does need to follow-up with her primary care doctor in 3 to 5 days. 2. History of iron deficiency anemia-on admission her hemoglobin is 11.5 and she was given IV fluids and her hemoglobin dropped to 9.5. She is asymptomatic and stable and she does have a history of anemia being in the low sevens to 8. She is on iron which she will continue on discharge, I do recommend that she take a vitamin C tablet at the pain time that she takes her iron since she is on a PPI. Would recommend having follow-up CBC done in 3 to 5 days by the PCP as well. 3. Hyponatremia/HTN-her sodium decreased on the day of discharge to 124, given that she is on hydrochlorothiazide lisinopril, this is probably where she lives. Do recommend that she have a BMP on follow-up with her PCP and on discharge I recommended that she hold take 1 tablet of her lisinopril/HCTZ combination pill instead of 2 tablets. Would recommend that if her blood pressure does rise in the outpatient setting to consider Norvasc or Coreg as alternatives. 4. Elevated total total bilirubin-she has had an isolated elevation of total bilirubin on admission. Her other LFTs were stable. Initially her total bilirubin was 2.3 and decreased 2.1. I would recommend outpatient follow-up as previously her total bilirubin was 0.8. This could represent Guilbert's disease but she will need to be monitored as an outpatient. 5. Her other medical diagnoses were evaluated and her home medications were continued where appropriate Patient Problems: Active and Suspected Problems Anterior dislocation of right shoulder (Acute) Right fourth proximal phalanx fracture (Acute) - Physical Exam General: Alert, Oriented x3, Cooperative, No apparent distress HEENT: Atraumatic, PERRLA, EOMI, Normocephalic Oral: Moist Mucosa Neck: Supple, No JVD Lungs: Clear to auscultation, Normal air movement, No rhonchi, No wheeze, No rales, Diminished Cardiovascular: Regular rate, Regular Rhythm, Normal S1, Normal S2, No murmurs Abdomen: Soft, Non Tender, Non-Distended, No Hepato-splenomegaly Extremities: No edema, Capillary Refill Less than 3 Seconds Skin: No rashes, No breakdown Musculoskeletal: - - Right shoulder is in a sling, and her right fourth phalanx is karla taped. Neurological: Neuro grossly intact, Sensory exam intact to light touch and pain, - - Chronic right foot drop Psych/Mental Status: Normal Affect, Appropriate Vital Signs Temp Pulse Resp BP Pulse Ox 98.0 F 100 18 132/89 H 99 09/14/19 10:16 09/14/19 10:16 09/14/19 10:16 09/14/19 10:16 09/14/19 10:16 Oxygen Flow Rate (L/min) [5] 2 Oxygen Flow Rate (L/min) [4] 2 Oxygen Flow Rate (L/min) [3] 2 Oxygen Flow Rate (L/min) 2 Oxygen Delivery Method [5] Nasal Cannula Oxygen Delivery Method [4] Nasal Cannula Oxygen Delivery Method [3] Nasal Cannula Oxygen Delivery Method [2] Room Air Oxygen Delivery Method Room Air Weight: 150 lb 9.211 oz Body Mass Index (BMI) 23.6 Finger Stick Blood Glucose 135 Intake and Output for Last 24 Hours 09/12/19 09/13/19 09/14/19 23:59 23:59 23:59 Intake Total 3289.59 / 3289.59 1500 / 1500 Output Total 650 / 650 350 / 350 Balance 2639.59 / 2639.59 1150 / 1150 Laboratory Tests Past 24 Hrs 09/14/19 09/14/19 00:35 06:40 Sodium 124 L Potassium 3.9 Chloride 92 L Carbon Dioxide 26.0 Anion Gap 6 BUN 21 H Creatinine 0.82 Estim Creat Clear Calc 55.87 Est GFR (MDRD) Af Amer 87 Est GFR (MDRD) Non-Af 72 BUN/Creatinine Ratio 25.5 H Glucose 109 H Calcium 8.1 L Urine Color Yellow Urine Clarity Sl. Cloudy Urine pH 6.0 Ur Specific [place] 1.020 Urine Protein 30 H Urine Glucose (UA) Normal Urine Ketones 5 H Urine Occult Blood Negative Urine Nitrite Negative Urine Bilirubin Negative Urine Urobilinogen Normal Ur Leukocyte Esterase 25 H Urine RBC 0 SEEN Urine WBC 0-5 SEEN Ur Squamous Epith Cells 0-5 SEEN Urine Bacteria RARE Hyaline Casts 0-5 SEEN Urine Mucus RARE Discharge Activity: Return to Normal Activity Weight Bearing Status: Weight bearing as tolerated Call your doctor if you observe: Fever of 101 or Higher, Shortness of breath, Dizziness, Fainting spells, Swelling in the ankles, Chest pain, Increased palpitations (irregular heartbeat) Home Medications: Medications to take at Discharge Celecoxib 100 mg PO DAILY 11/23/18 Duloxetine HCl 60 mg PO DAILY 11/23/18 Gabapentin [Neurontin] 200 mg PO TID 11/23/18 Guaifenesin/Dextromethorphan [Mucosa Dm 400-20 mg Tablet] 1 each PO BID PRN PRN 11/23/18 Lorazepam [Ativan] 1 mg PO TID PRN PRN 11/23/18 Tizanidine HCl 2 mg PO TID 11/23/18 traZODone [Desyrel] 150 mg PO QHS PRN PRN 11/23/18 Pantoprazole Sodium [Protonix] 40 mg PO DAILY #30 tab 11/25/18 Ondansetron [Zofran Odt] 4 mg PO Q8H PRN PRN #7 tab 06/14/19 Hydroxyzine HCl 25 mg PO DAILY 09/13/19 Iron Polysaccharide Complex [Iferex 150] 150 mg PO BID 09/13/19 Ascorbic Acid [Vitamin C] 500 mg PO BID #60 tab.chew 09/14/19 Lisinopril/Hydrochlorothiazide [Lisinopril-Hctz 20-12.5 mg Tab] 1 tab PO DAILY #0 09/14/19 Primary Care Physician: Erick Christensen III, MD [Primary Care Provider] - Please follow up with your Primary Care Physician in: 3-5 days Please Follow Up With: Orthopedics When: 1 week Disposition: Home with Home Health Minutes spent on discharge:: 35 Patient Condition:: Stable Medical Necessity - Tobacco Use Smoking Status: Never smoker Tobacco Use: Non-smoker Meaningful Use Info Meaningful Use Diagnoses (Choose all that apply): None applicable Code Visit OBSV E&M: 37899 Observation care discharge
--- NOTE | 2019-09-14 13:31 | CM.UR ---
Addendum entered by Uzma العراقي 09/14/19 13:34: Noted ANTHONY Wong had given her a list already. Qing CRUZ stopped by an alerted me that patient chose [facility] for her home care services. Referral sent at this time. Fernando العراقي RN, CCM. Original Note: Dr. Funez is recommending HHC for this patient. Given list of agencies in network for her [employer] printed from the website using her ID number. Will check back to see decision. Fernando العراقي RN, CCM.
[2019-09-14 16:26] VITALS: BP 118/79; PULSE 53; RESP 18; TEMP 36.9; O2SAT 99
== END 2019-09-14 16:43 | disposition home health service (06) ==
LOC: ED 00:49 → MS3 02:37
PROVIDERS: Admitting Provider Family Medicine; Emergency Provider Emergency Medicine; Family Provider Family Medicine; PCP Family Medicine; Referring Provider Family Medicine; Visit Provider Family Medicine
DX: S43.034A Inferior dislocation of right humerus, initial encounter (principal); W01.0XXA Fall on same level from slipping, tripping and stumbling without subsequent striking against object, initial encounter; Y93.01 Activity, walking, marching and hiking; Y92.9 Unspecified place or not applicable; M21.371 Foot drop, right foot; S92.514A Nondisplaced fracture of proximal phalanx of right lesser toe(s), initial encounter for closed fracture; I10 Essential (primary) hypertension; F41.9 Anxiety disorder, unspecified; F32.9 Major depressive disorder, single episode, unspecified; D50.9 Iron deficiency anemia, unspecified; K21.9 Gastro-esophageal reflux disease without esophagitis; E87.1 Hypo-osmolality and hyponatremia; G89.4 Chronic pain syndrome; R73.9 Hyperglycemia, unspecified; Z87.891 Personal history of nicotine dependence; Z79.899 Other long term (current) drug therapy
CPT/HCPCS: 23650; 36415; 73020; 73030; 73630; 80048; 80053; 81001; 85025; 96361; 96372; 96374; 97163; 97165; 99218; 99285; J7030; A4216; G0378

== ENCOUNTER 2019-12-19 16:12 | Inpatient (IN) | payer MEDICARE, SELFPAY ==
[2019-09-13 03:04] VITALS: BMI 23.6
[2019-12-19] VITALS (17 sets, daily range): BP systolic 60–142; BP diastolic 40–114; PULSE 85–129; RESP 8–23; TEMP 36.9–37.3; O2SAT 88–100; BMI 27.3; BMI 23.0
[2019-12-19 16:25] LABS: Bedside Glucose 269 mg/dL (70-110)
--- NOTE | 2019-12-19 16:28 | CT_ITS ---
STUDY: CT BRAIN WITHOUT CONTRAST REASON FOR EXAM: Female, 79 years old. Confusion possible trauma RADIATION DOSAGE (If Supplied By Facility): CTDIvol = ( 44.99 ) mGy, DLP = ( 779.24 ) mGycm TECHNIQUE: Transaxial CT imaging of the brain was performed without administration of intravenous contrast material. Individualized dose optimization techniques were used for this CT. COMPARISON: 23 November 2018 FINDINGS: Brain parenchyma is without focal lesions, mass effect, acute intracranial hemorrhage, extra parenchymal fluid collections, hydrocephalus or herniation. The skull is intact. CT/Brain/Head without Contrast IMPRESSION: 1. Normal CT brain. Electronically Signed: Jeniffer Vale, at 17:37 EST Tel , Service support ,
--- NOTE | 2019-12-19 16:28 | EKG12_ITS ---
Test Reason : CONFUSION Blood Pressure : / mmHG Vent. Rate : 115 BPM Atrial Rate : 115 BPM P-R Int : 176 ms QRS Dur : 088 ms QT Int : 308 ms P-R-T Axes : 043 -12 138 degrees QTc Int : 426 ms Sinus tachycardia Left ventricular hypertrophy with repolarization abnormality Abnormal ECG Confirmed by SERJIO MEADE, SHANIQUE ([id number]), photography editor RADHA MCKENZIE ([id number]) on 12/20/2019 2:26:19 PM Referred By: Erick Christensen Confirmed By:SHANIQUE BASSETT MD
--- NOTE | 2019-12-19 16:30 | RAD_ITS ---
STUDY: X-RAY - PELVIS AND RIGHT HIP REASON FOR EXAM: Female, 79 years old. fall, right hip pain TECHNIQUE: 3 views of the pelvis and hip. COMPARISON: November 23, 2018 FINDINGS: There is a normal bowel gas pattern. Normal visualized soft tissue structures. There is diffuse demineralization of the osseous structures. There is scoliosis with degenerative change of the lumbar spine Normal bilateral iliac wings, sacroiliac joints and visualized sacrum. Normal bilateral superior and inferior pubic rami. Normal pubic symphysis. Normal bilateral ischial tuberosities. There is right hip replacement. Alignment is near-anatomic. No acute fracture. Angulation suggesting healed right pubic fracture . RAD/HIP, UNI W/ Pelvis 2-3 Views IMPRESSION: Right hip replacement. Demineralization. No acute fracture. Electronically Signed: Ryan Tavarez MD at 18:33 EST , Service support ,
[2019-12-19 16:45] LABS: Hematocrit 27.2 % (37-47); Hemoglobin 8.8 g/dL (12.0-15.0); Mean Corp Hgb Conc 32.4 g/dL (32-36); Mean Corpuscular Hgb 28.4 pg (27.0-32.0); Mean Corpuscular Volume 87.7 fL (81-99); Mean Platelet Vol. 10.9 fl (6.2-12.0); POSITIVE DIFFERENTIAL YES; POSITIVE MORPHOLOGY YES; Platelet Count 203 K/mm3 (150-450); RBC Distribution Width CV 13.9 % (11.6-14.6); RBC Distribution Width SD 43.6 fl (35.1-43.9); White Blood Count 12.2 K/mm3 (4.4-11.0)
[2019-12-19 16:55] LABS: D-Dimer Quantitative (DVT/PE) 3.12 FEU/ug/m (0.27-0.49)
[2019-12-19 16:56] LABS: AST(SGOT) 155 U/L (15-37); Alanine Aminotransfer ALT/SGPT 54 U/L (13-56); Alkaline Phosphatase 71 U/L (45-117); Anion Gap 11 (5-15); BUN 93 mg/dL (7-18); BUN/Creat Ratio 14.7 RATIO (10-20); Calcium,Total 9.2 mg/dL (8.5-10.1); Chloride 94 mmol/L (98-107); Creatinine, Serum 6.33 mg/dL (0.55-1.02); EST Glomerular Filtration Rate 7 mL/min (>60); Est Glom Filt Rate - Afr Amer 8 mL/min (>60); Estimated Creatinine Clearance 6.16 ml/min; Globulin 3.1 g/dL (2.2-4.2); Glucose 320 mg/dL (74-106); Potassium 3.7 mmol/L (3.5-5.1); Protein, Total 6.1 g/dL (6.4-8.2); Sodium Level 130 mmol/L (136-145)
[2019-12-19 17:13] LABS: Lactic Acid 1.7 mmol/L (0.4-1.9)
--- NOTE | 2019-12-19 17:20 | RAD_ITS ---
STUDY: X-RAY CHEST REASON FOR EXAM: Female, 79 years old. fall, ALT LOC TECHNIQUE: Frontal view of the chest was performed COMPARISON: 23 November 2008 FINDINGS: Examination is mildly technically suboptimal due to technique. Diagnostic information is available. Inspiratory volumes are low. There is no pneumothorax, pulmonary edema or pleural effusions. Interstitial markings are increased in visibility, possibly technical appearance. There is an ill-defined left paracardiac shadow, possibly atelectasis. Retrocardiac parenchyma is poorly seen. There is possibly hiatal hernia. There is moderate to severe S-shaped thoracolumbar scoliosis. Otherwise skeletal structures are unremarkable. RAD/Chest 1 View (Portable) IMPRESSION: 1. Low inspiratory volume radiograph, presumably retrocardiac atelectasis. 2. Recommend repeat frontal and lateral radiography after patient''s condition improves for more definitive assessment. Electronically Signed: Jeniffer Vale, at 18:07 EST Tel , Service support ,
[2019-12-19 17:21] LABS: Differential Indicated MANUAL DIFF
[2019-12-19 17:24] LABS: Basophil 1 % (0-1); Lymphocyte 7 % (19-41); Monocyte 10 % (0-10); Neutrophil-Band 5 % (0-5); Neutrophil-Segmented 77 % (47-70); Total Cells Counted 100 (MANUAL DIFF)
[2019-12-19 17:25] LABS: Hypochromasia 1+
[2019-12-19 17:26] LABS: Platelet Estimate ADEQUATE (ADEQ); Red Cell Morphology N CYTIC NORMAL (NORM C&C); Scan Smear per Review Criteria MANUAL DIFF
[2019-12-19 17:27] LABS: Absolute Lymphocyte Count 0.85 X10^3/uL (0.83-4.51)
[2019-12-19 17:28] LABS: BNP,B-Type NATRIURETIC PEPTIDE 457.4 pg/mL (0-100)
[2019-12-19 17:30] LABS: CPK Total, Creatine Kinase 5691 U/L (26-192)
[2019-12-19 18:01] LABS: Bacteria 0 SEEN /hpf (None Seen); Mucous, Urine 0 SEEN /hpf (<or=2+)
--- NOTE | 2019-12-19 18:02 | ED.DCSUM_ITS ---
- ER Visit Summary Date of Service: 12/19/19 Chief Complaint: [Confusion] History of Present Illness: The patient is a 79 F [presents to the emergency department complaint of confusion and mental status change today. Patient apparently was last seen well the night before on camera by her daughters as patient has cameras in the home. This morning it is noted that patient was on the floor. It is unclear how long patient spent on the floor. Patient had been incontinent of stool when other daughter arrived. Help the patient in the bed and noted that her nailbeds were dusky. Patient was shaking from time to time and will more confused than usual. Daughter states that patient does take chronic pain meds and takes morphine which oftentimes will cause some confusion. Patient does have history of CHF, hypertension, anemia, hyponatremia, and chronic right foot drop. Patient has history of chronic pain. Denies any chest pain or shortness of breath. She is had no recent illness leading up to today.] Physical Examination: [HEENT-PERRLA, EOMI. Cranial nerves II through XII grossly intact. TMs clear. Mucous membranes dry. No adenopathy. No C-spine tenderness on palpation. No external evidence of trauma to her head. Cardiovascular-regular rate and rhythm without murmur or ectopy Lungs-clear to auscultation, chest wall stable without crepitus or subcu emphysema Abdomen-normoactive bowel sounds, soft, nontender, no rebound or rigidity, no peritoneal signs. Rectal exam-patient had black stool that was Hemoccult positive. Neuro exam-no focal deficits noted. No facial droop. Normal sensation. Extremities-intact ?4, normal range of motion, normal pulses, atraumatic. Patient does have some mild pain to the right hip. Patient does have a foot drop on the right that is chronic.] Test Results: [EKG obtained arrival shows sinus rhythm with a ventricular rate of 115 bpm with some LVH. CBC with differential count of 12.5, hemoglobin 8.8, hematocrit 27, placed 2 or 3. Chemistries unremarkable. BUN was 93 and creatinine 6.33. Troponin was 1043. CPK was 5691. BNP was 457. D-dimer was 3.12. Chest x-ray on my interpretation showed nothing acute. CT scan of the brain without contrast showed nothing acute CT of the C-spine pending official report. X-rays of the right hip and pelvis showed no fractures on my interpretation.] Emergency Department Course and Treatment: [Patient had an IV line established and was given normal saline. Urine was sent for tox screen. Urinalysis pending.] Treatment Plan: [Admit. Case discussed with hospitalist who will evaluate patient in the emergency department] Disposition: [Admit] Impression: [Rhabdomyolysis Acute renal failure Generalized weakness Anemia Upper GI bleed] This note was generated with [employer] dictation software. It may contain incorrect words, spelling, and punctuation that were not noted in review of the chart prior to signing ED Disposition - Plan for ED Patient: Referrals: Erick Christensen III, MD [Primary Care Provider] -
[2019-12-19 18:06] LABS: Color, Urine Yellow (Yellow); Glucose, Dipstick Normal (Normal); Ketone-Dipstick 5 mg/dl (Negative); Leukocyte Esterase-Dipstick 25 /ul (Negative); Nitrite-Dipstick Negative (Negative); Occult Blood-Urine 250 /ul (Negative); Protein-Dipstick 30 mg/dl (Negative); Urine Clarity Sl. Cloudy (Clear); Urine Urobilinogen Normal (Normal)
[2019-12-19 18:08] LABS: Urine Bilirubin Dipstick 3 mg/dL (Negative)
[2019-12-19 18:12] LABS: Red Blood Cells-Urine 10-25 SEEN /hpf (0-5); Squamous Epithelial Cells - UA 0-5 SEEN /hpf (5-10); White Blood Cells 0-5 SEEN /hpf (0-5)
[2019-12-19 18:13] LABS: Amorphous Sediment 2+ URATE
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
[2019-12-19 18:44] LABS: Amphetamine Urine VISTA NEGATIVE (<1000 ng/mL); Barbiturate Urine VISTA NEGATIVE (< 200 ng/mL); Benzodiazepine Urine VISTA NEGATIVE (< 200 ng/mL); Cocaine Urine VISTA NEGATIVE (< 300 ng/mL); Ecstacy Urine VISTA NEGATIVE (< 500 ng/mL); Methadone Urine VISTA NEGATIVE (< 300 ng/mL); PCP Urine VISTA NEGATIVE (< 25 ng/mL); THC Urine VISTA NEGATIVE (< 50 ng/mL); Vista UDS pH Range 6
[2019-12-19] MEDS: 0.9% Normal Saline 1,000 ML 150 ML IV ×2 (19:23→21:17)
[2019-12-19] MEDS: 0.9% Saline Lock 10 ML Syringe IV ×2 (19:23→22:45)
--- NOTE | 2019-12-19 20:20 | NURSING ---
DISTRICT SERVICE MANAGER called at this time on pt, see DISTRICT SERVICE MANAGER documentation.
--- NOTE | 2019-12-19 20:33 | PCM.RRT.BLA ---
Rapid Response Note - Blank Patient was rapid response because she was not very responsive and her blood pressure was 60/40 with respiratory rate of 10. Patient was examined at the bedside. Nurses had put patient in Trendelenburg position and IV fluids which was originally going at 150 mL's per hour was made wide open. Upon assessment patient is obtunded. Pupils were pin-size. Heart sounds S1-S2 present. Lungs were clear to auscultate. EKG shows sinus rhythm. Assessment and plan narcotic overdose. Narcan 0.4 mg x 1 ordered and given. Patient became more responsive and was coughing. Repeat blood pressure was normal. After which she became lethargic. If patient becomes less responsive and if respiratory rate is less than 12 give Narcan 0.4 mg x 1 again.; After which will consider Narcan drip. Complete normal saline back going at wide open after which maintenance rate of 150 mL's per hour should be continued. This was discussed with nursing team and family. Patient is a full code.
[2019-12-19 20:35] LABS: Bedside Glucose 89 mg/dL (70-110)
[2019-12-19 20:39] LABS: Absolute Lymphocyte Count 0.53 X10^3/uL (0.83-4.51); Absolute Neutrophil Count 6.9 X10^3/uL (2.0-7.7); Basophil# 0.01 X10^3/uL; Basophil% 0.1 % (0-1); Eosinophil# 0.19 X10^3/uL; Eosinophils% 2.1 % (0-5); Hematocrit 22.9 % (37-47); Hemoglobin 7.3 g/dL (12.0-15.0); Lymphocyte # 0.53 X10^3/ul (4.0); Lymphocyte % 5.9 % (19-41); Mean Corp Hgb Conc 31.9 g/dL (32-36); Mean Corpuscular Hgb 28.2 pg (27.0-32.0); Mean Corpuscular Volume 88.4 fL (81-99); Mean Platelet Vol. 9.8 fl (6.2-12.0); Monocyte# 1.32 X10^3/uL; Monocyte% 14.7 % (0-10); NRBC Flagged by Analyzer 0 % (0-5); Neutrophil # 6.87 X10^3/uL (2.7-7.7); Neutrophil % 76.8 % (47-70); POSITIVE DIFFERENTIAL YES; POSITIVE MORPHOLOGY YES; Platelet Count 167 K/mm3 (150-450); RBC Distribution Width CV 13.9 % (11.6-14.6); RBC Distribution Width SD 43.5 fl (35.1-43.9); Red Blood Count 2.59 M/mm3 (4.2-5.4)
[2019-12-19] MEDS: Naloxone 0.4 MG/ML Syringe IV ×2 (20:43→22:45)
[2019-12-19 20:58] LABS: Anion Gap 10 (5-15); BUN 89 mg/dL (7-18); BUN/Creat Ratio 15.5 RATIO (10-20); Calcium,Total 8.6 mg/dL (8.5-10.1); Chloride 101 mmol/L (98-107); Creatinine, Serum 5.75 mg/dL (0.55-1.02); EST Glomerular Filtration Rate 8 mL/min (>60); Est Glom Filt Rate - Afr Amer 9 mL/min (>60); Estimated Creatinine Clearance 7.97 ml/min; Glucose 83 mg/dL (74-106); Potassium 3.3 mmol/L (3.5-5.1); Sodium Level 134 mmol/L (136-145)
[2019-12-19 21:10] LABS: Differential Comment SCANNED
[2019-12-19 21:11] LABS: Differential Indicated SCAN CRITERIA MET
--- NOTE | 2019-12-19 21:15 | EKG12_ITS ---
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 Rate : 100 BPM Atrial Rate : 100 BPM P-R Int : 132 ms QRS Dur : 102 ms QT Int : 358 ms P-R-T Axes : 056 -07 071 degrees QTc Int : 461 ms Normal sinus rhythm Nonspecific T wave abnormality Abnormal ECG When compared with ECG of 19-DEC-2019 16:42, MANUAL COMPARISON REQUIRED, DATA IS UNCONFIRMED Confirmed by SERJIO MEADE, SHANIQUE ([id number]), editorial project manager RADHA MCKENZIE ([id number]) on 12/24/2019 12:34:13 PM Referred By: Erick Christensen Confirmed By:SHANIQUE BASSETT MD
[2019-12-19] MEDS: Ondansetron 4 MG/2 ML Vial IV (21:22)
--- NOTE | 2019-12-19 21:25 | NURSING ---
Bedside handoff given to Christelle kim at this time d/t pt being made step down status.
[2019-12-19] MEDS: 0.9% Normal Saline 1,000 ML 999 ML IV (22:50)
[2019-12-20] VITALS (36 sets, daily range): BP systolic 90–165; BP diastolic 52–143; PULSE 63–139; RESP 10–22; TEMP 36.7–37.6; O2SAT 89–100
[2019-12-20] MEDS: Potassium Chloride 10mEq/100mL 10 MEQ/100 ML IV.SOLN. 100 MEQ IV BOLUS ×4 (00:07→04:33)
[2019-12-20] MEDS: 0.9% Normal Saline 1,000 ML 150 ML IV ×4 (03:32→21:21)
[2019-12-20 05:49] LABS: Absolute Lymphocyte Count 0.54 X10^3/uL (0.83-4.51); Absolute Neutrophil Count 6.3 X10^3/uL (2.0-7.7); Basophil# 0.02 X10^3/uL; Basophil% 0.2 % (0-1); Eosinophil# 0.23 X10^3/uL; Eosinophils% 2.7 % (0-5); Hemoglobin 7.1 g/dL (12.0-15.0); Lymphocyte # 0.54 X10^3/ul (4.0); Lymphocyte % 6.4 % (19-41); Mean Corp Hgb Conc 32.3 g/dL (32-36); Mean Corpuscular Hgb 28.9 pg (27.0-32.0); Mean Corpuscular Volume 89.4 fL (81-99); Mean Platelet Vol. 10.7 fl (6.2-12.0); Monocyte# 1.27 X10^3/uL; Monocyte% 15.2 % (0-10); NRBC Flagged by Analyzer 0 % (0-5); Neutrophil # 6.28 X10^3/uL (2.7-7.7); POSITIVE DIFFERENTIAL YES; POSITIVE MORPHOLOGY YES; Platelet Count 162 K/mm3 (150-450); RBC Distribution Width CV 14.1 % (11.6-14.6); RBC Distribution Width SD 45.6 fl (35.1-43.9); Red Blood Count 2.46 M/mm3 (4.2-5.4); White Blood Count 8.4 K/mm3 (4.4-11.0)
[2019-12-20 05:52] LABS: Differential Indicated SCAN CRITERIA MET
[2019-12-20 06:10] LABS: ALB/GLOB Ratio 0.9 RATIO (0.9-2.4); AST(SGOT) 139 U/L (15-37); Alanine Aminotransfer ALT/SGPT 54 U/L (13-56); Albumin, Serum 2.2 g/dL (3.2-5.0); Alkaline Phosphatase 92 U/L (45-117); Anion Gap 10 (5-15); BUN 80 mg/dL (7-18); BUN/Creat Ratio 20.6 RATIO (10-20); Calcium,Total 7.8 mg/dL (8.5-10.1); Chloride 108 mmol/L (98-107); Creatinine, Serum 3.89 mg/dL (0.55-1.02); EST Glomerular Filtration Rate 12 mL/min (>60); Est Glom Filt Rate - Afr Amer 14 mL/min (>60); Estimated Creatinine Clearance 11.78 ml/min; Globulin 2.5 g/dL (2.2-4.2); Glucose 84 mg/dL (74-106); Magnesium 1.5 mg/dL (1.6-2.6); Phosphorus 3.7 mg/dL (2.5-4.9); Potassium 3.7 mmol/L (3.5-5.1); Protein, Total 4.7 g/dL (6.4-8.2); Sodium Level 137 mmol/L (136-145)
[2019-12-20 06:25] LABS: Differential Comment SCANNED; Hypochromasia 3+
[2019-12-20] MEDS: Naloxone 0.4 MG/ML Syringe IV (06:30)
[2019-12-20] MEDS: 0.9% Saline Lock 10 ML Syringe IV (06:32)
--- NOTE | 2019-12-20 06:47 | PCM.PN.BLA ---
Progress Note Patient will be transferred to the ICU because of persistent lethargy which improves momentarily with narcan. Patient has received IVF bolus for hypotension; in addition to maintenance IVF boluses for rhabo and YRIS. Discuss case with physician vice president who agreed to be on consult. STROKE Vital Signs/Narrative: Vital Signs Temp Pulse Resp BP BP Pulse Ox 12/20/19 04:30 113 H 22 H 90/57 L 98 12/20/19 04:15 100 13 92/52 L 96 12/20/19 04:00 104 H 20 H 91/54 L 96 12/20/19 03:00 98.7 F 114 H 15 121/63 H 99
--- NOTE | 2019-12-20 07:24 | NURSING ---
updated daughter Patito in regards to transfer to ICU, plan of care, and ICU routine including visiting hours and interdisciplinary rounds. All questions answered.
[2019-12-20 07:36] LABS: Base Excess -8 mmol/L (-2 to +2); Blood Gas Specimen Type ART; O2 Delivery Device Nasal Can; PO2 109 mmHG (75-100); SITE L Brachial; SO2 97 % (95-99); Time Given 735; Total Carbon Dioxide 20 mmol/L; pCO2 41.1 mmHg (35-45); pH 7.27 (7.35-7.45)
[2019-12-20 07:47] LABS: CPK Total, Creatine Kinase 3695 U/L (26-192)
--- NOTE | 2019-12-20 08:25 | CON.PCM_ITS ---
Problem List (1) Severe anemia Status: Acute (2) Generalized weakness Status: Acute (3) Chronic pain disorder Status: Chronic (4) Hypertension Status: Chronic Qualifiers: (5) Anxiety and depression Status: Chronic (6) Chronic anemia Status: Chronic (7) YRIS (acute kidney injury) Status: Acute (8) Rhabdomyolysis Status: Acute Reason for Consult Date of Consultation: 12/20/19 Reason for Consultation: Respiratory failure History of Present Illness: The patient is a 79 year old F, with past medical history listed below, who presented to [facility] on 12/19/2019 secondary to confusion and altered mental status. Patient was reportedly seen the night prior to presentation by her daughters on cameras. The following morning, patient was noted to be on the floor. Patient had been incontinent of stool and urine. The daughters reportedly helped her to bed, but noted that her nailbeds were dusky. Patient was shaking from time to time and seemed more confused. Patient is on chronic pain medication secondary to chronic pain. Patient does have a history of foot drop. Patient had not reported any shortness of breath or chest pain prior to presentation. In the ER, patient was noted to be in sinus tachycardia at 115 bpm. Patient had a mild leukocytosis of 12.5, but chemistry showed a BUN of 93 and a creatinine of 6.33 with a BNP of 457. CT of the head was normal and patient was admitted to the PCU with reported rhabdomyolysis. On the floor, patient became progressively unresponsive. Patient did have a rapid response called overnight and was given Narcan. This morning, patient was transferred to the intensive care unit for a concern of the need for a Narcan drip. Patient is not a very good historian and is unable to provide a review of systems at this time. Patient does state that she is not currently feeling any chest pain, abdominal pain, nausea or vomiting. Patient does report hurting all over. Patient has no recollection of the onset and feels that she was lying on the floor for 2 days. Patient is unable to state whether this is happened previously. Review of the medical record shows patient with diastolic congestive heart failure with an EF of 55% and elevated pulmonary artery pressures. Patient also had a creatinine in August 2019 at 0.82. Patient has not had a pulmonary function test in the past. Past Medical History Past Medical History (Chronic Problems): Chronic Problems Chronic pain disorder (Chronic) Hypertension (Chronic) Anxiety and depression (Chronic) Right foot drop (Chronic) Chronic anemia (Chronic) Hyponatremia (Chronic) Allergies No Known Allergies Allergy (Verified 12/19/19 16:26) Home Medications: Ambulatory Orders Medication Instructions Recorded Celecoxib 100 mg PO DAILY 11/23/18 Duloxetine HCl 60 mg PO DAILY 11/23/18 Gabapentin [Neurontin] 200 mg PO TID 11/23/18 Guaifenesin/Dextromethorphan 1 each PO BID PRN PRN 11/23/18 [Mucosa Dm 400-20 mg Tablet] Lorazepam [Ativan] 1 mg PO TID PRN PRN 11/23/18 Tizanidine HCl 2 mg PO TID 11/23/18 traZODone [Desyrel] 100 mg PO QHS PRN PRN 11/23/18 Ondansetron [Zofran Odt] 4 mg PO Q8H PRN PRN #7 tab 06/14/19 Hydroxyzine HCl 25 mg PO Q6H PRN PRN 09/13/19 Iron Polysaccharide Complex 150 mg PO BID 09/13/19 [Iferex 150] Ascorbic Acid [Vitamin C] 500 mg PO BID 12/19/19 Lisinopril/Hydrochlorothiazide 2 tab PO DAILY 12/19/19 [Lisinopril-Hctz 20-12.5 mg Tab] Pantoprazole Sodium [Protonix] 40 mg PO DAILY 12/19/19 Surgical History: total hip arthroplasty, - - Tonsillectomy, history of extensive trauma with right hip pin and follow-up right total hip replacement. 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 Review of Systems Unable to obtain accurate/complete ROS d/t: See HPI Patient Problems: Active and Suspected Problems YRIS (acute kidney injury) (Acute) Rhabdomyolysis (Acute) Objective: All imaging was personally reviewed. Agree with formal interpretation. Echocardiogram was mentioned in HPI. - Physical Exam Vitals/I&O's: Vital Signs Temp Pulse Resp BP Pulse Ox 37.1 C 107 H 15 102/71 94 12/20/19 03:00 12/20/19 06:00 12/20/19 06:00 12/20/19 06:00 12/20/19 06:00 Oxygen Flow Rate (L/min) 2 Oxygen Delivery Method Nasal Cannula Weight: 66.6 kg Body Mass Index (BMI) 23.0 Finger Stick Blood Glucose 135 Intake and Output for Last 24 Hours 12/18/19 12/19/19 12/20/19 23:59 23:59 23:59 Intake Total 2500 / 2907.5 2997.5 / 2997.5 Output Total 550 / 550 Balance 2500 / 2707.5 2447.5 / 2447.5 General: No apparent distress, Confused, Disoriented, - - Response to voice. Falls asleep quickly. HEENT: Atraumatic, PERRLA, EOMI, Normocephalic, - - No scleral icterus or injection noted Oral: No Gingival or Mucosal Lesions/ Ulcerations, Dry Mucosa Neck: Supple, No JVD, No Nodes, Trachea Midline Lungs: No rhonchi, No wheeze, No rales, Diminished, - - Fair effort. Cardiovascular: Regular rate, Regular Rhythm, Normal S1, Normal S2, No murmurs, No rub noted, No Gallop Abdomen: Bowel Sounds Present, Soft, Non Tender, Non-Distended Extremities: No clubbing, No cyanosis, No edema, Capillary Refill Less than 3 Seconds Skin: No rashes, No breakdown Musculoskeletal: No Tenderness to Palpation of Joints or Extremities Lymphatic: No Cervical, Supraclavicular, or Inguinal Adenopathy Neurological: Cranial nerves II-XII grossly intact, Neuro grossly intact Psych/Mental Status: Flat Affect, Impulsive Microbiology Past 72 Hours 12/19/19 16:25 Stool Stool Occult Blood (BRENDA) - Final Occult Blood Positive Laboratory Results 12/19/19 16:15: WBC 12.2 H, RBC 3.10 L, Hgb 8.8 L, Hct 27.2 L, MCV 87.7, MCH 28.4, MCHC 32.4, RDW Std Deviation 43.6, RDW Coeff of [place]var[place] 13.9, Plt Count 203, MPV 10.9, Immature Gran % (Auto) FIRE ALARM INSTALLER, Neut % (Auto) FIRE ALARM INSTALLER, Lymph % (Auto) FIRE ALARM INSTALLER, [place] % (Auto) FIRE ALARM INSTALLER, Eos % (Auto) FIRE ALARM INSTALLER, Baso % (Auto) FIRE ALARM INSTALLER, Absolute Neuts (auto) 10.0 H, Absolute Lymphs (auto) 0.85, Total Counted 100, Neutrophils % (Manual) 77 H, Band Neutrophils % 5, Lymphocytes % (Manual) 7 L, Monocytes % (Manual) 10, Basophils % (Manual) 1, Nucleated RBC % FIRE ALARM INSTALLER, Differential Comment FIRE ALARM INSTALLER, Diff Path Review May foll, Platelet Estimate ADEQUATE, RBC Morphology N CYTIC, Hypochromasia 1+ 12/19/19 16:15: D-Dimer Quant (PE/DVT) 3.12 H* 12/19/19 16:15: Sodium 130 L, Potassium 3.7, Chloride 94 L, Carbon Dioxide 25.0, Anion Gap 11, BUN 93 H, Creatinine 6.33 H, Estim Creat Clear Calc 6.16, Est GFR (MDRD) Af Amer 8 L, Est GFR (MDRD) Non-Af 7 L, BUN/Creatinine Ratio 14.7, Glucose 320 H, Calcium 9.2, Total Bilirubin 0.80, AST 155 H, ALT 54, Alkaline Phosphatase 71, Troponin I 0.043, Total Protein 6.1 L, Albumin 3.0 L, Globulin 3.1, Albumin/Globulin Ratio 1.0 12/19/19 16:15: B-Natriuretic Peptide 457.4 H 12/19/19 16:15: Total Creatine Kinase 5691 H 12/19/19 16:20: POC Glucose 269 H 12/19/19 16:38: Lactic Acid 1.7 12/19/19 17:32: Urine Color Yellow, Urine Clarity Sl. Cloudy, Urine pH 5.0, Ur Specific [place] 1.020, Urine Protein 30 H, Urine Glucose (UA) Normal, Urine Ketones 5 H, Urine Occult Blood 250 H, Urine Nitrite Negative, Urine Bilirubin 3 H, Urine Urobilinogen Normal, Ur Leukocyte Esterase 25 H, Urine RBC 10-25 SEEN, Urine WBC 0-5 SEEN, Ur Squamous Epith Cells 0-5 SEEN, Amorphous Sediment 2+ URATE, Urine Bacteria 0 SEEN, Urine Mucus 0 SEEN 12/19/19 17:32: Urine Opiates Screen POSITIVE H, Urine Methadone Screen NEGATIVE, Ur Barbiturates Screen NEGATIVE, Ur Phencyclidine Scrn NEGATIVE, Ur Amphetamines Screen NEGATIVE, U Methamphetamin-MDMA NEGATIVE, U Benzodiazepines Scrn NEGATIVE, Urine Cocaine Screen NEGATIVE, U Cannabinoids Screen NEGATIVE, Ur Drug Screen Comment 12/19/19 20:24: POC Glucose 89 12/19/19 20:28: WBC 9.0, RBC 2.59 L, Hgb 7.3 L, Hct 22.9 L, MCV 88.4, MCH 28.2, MCHC 31.9 L, RDW Std Deviation 43.5, RDW Coeff of [place]var[place] 13.9, Plt Count 167, MPV 9.8, Immature Gran % (Auto) 0.400, Neut % (Auto) 76.8 H, Lymph % (Auto) 5.9 L, [place] % (Auto) 14.7 H, Eos % (Auto) 2.1, Baso % (Auto) 0.1, Absolute Neuts (auto) 6.9, Absolute Lymphs (auto) 0.53 L, Nucleated RBC % 0, Differential Comment SCANNED 12/19/19 20:28: Troponin I 0.042 12/19/19 20:28: Sodium 134 L, Potassium 3.3 L, Chloride 101, Carbon Dioxide 23.0, Anion Gap 10, BUN 89 H, Creatinine 5.75 H, Estim Creat Clear Calc 7.97, Est GFR (MDRD) Af Amer 9 L, Est GFR (MDRD) Non-Af 8 L, BUN/Creatinine Ratio 15.5, Glucose 83, Calcium 8.6 12/20/19 05:04: WBC 8.4, RBC 2.46 L, Hgb 7.1 L, Hct 22.0 L, MCV 89.4, MCH 28.9, MCHC 32.3, RDW Std Deviation 45.6 H, RDW Coeff of [place]var[place] 14.1, Plt Count 162, MPV 10.7, Immature Gran % (Auto) 0.500, Neut % (Auto) 75.0 H, Lymph % (Auto) 6.4 L, [place] % (Auto) 15.2 H, Eos % (Auto) 2.7, Baso % (Auto) 0.2, Absolute Neuts (auto) 6.3, Absolute Lymphs (auto) 0.54 L, Nucleated RBC % 0, Differential Comment SCANNED, Hypochromasia 3+ 12/20/19 05:04: Sodium 137, Potassium 3.7, Chloride 108 H, Carbon Dioxide 19.0 L , Anion Gap 10, BUN 80 H, Creatinine 3.89 H, Estim Creat Clear Calc 11.78, Est GFR (MDRD) Af Amer 14 L, Est GFR (MDRD) Non-Af 12 L, BUN/Creatinine Ratio 20.6 H , Glucose 84, Calcium 7.8 L, Phosphorus 3.7, Magnesium 1.5 L, Total Bilirubin 0.70, AST 139 H, ALT 54, Alkaline Phosphatase 92, Total Protein 4.7 L, Albumin 2.2 L, Globulin 2.5, Albumin/Globulin Ratio 0.9 12/20/19 05:04: Total Creatine Kinase 3695 H 12/20/19 07:31: Specimen Type ART, Sample Site L Brachial, pH 7.27 L, Bicarbonate Actual 19.0 L, POC Total CO2 20, Base Excess -8 L, O2 Saturation 97, ABG pCO2 41.1, ABG pO2 109 H, O2 Delivery Device Nasal Can, Liter Flow 3.0, Blood Gas Notified Whom ICU MD, Blood Gas Notified Time 735 Current Medications Sodium Chloride () 1,000 mls @ 150 mls/hr IV .Q6H40M [facility] Last Admin: 12/20/19 08:14 Dose: 150 mls/hr Documented by: Pantoprazole Sodium 40 mg/ (Sodium Chloride) 110 mls @ 330 mls/hr IV Q24 [facility] Magnesium Sulfate () 4 gm in 100 mls @ 25 mls/hr IV X1 ONE Stop: 12/20/19 11:59 Nutritional Formula (Lactose Free) (Ensure Enlive) 120 ml PO 4X/DAY [facility] Last Admin: 12/19/19 21:25 Dose: Not Given Documented by: Ondansetron HCl (Zofran) 4 mg IV Q6H PRN PRN PRN Reason: NAUSEA/VOMITING Last Admin: 12/19/19 21:22 Dose: 4 mg Documented by: Potassium Chloride (K-Dur) 20 meq PO BIDCM [facility] Stop: 12/20/19 17:01 Sodium Chloride () 10 - 40 ml IV UD PRN PRN Reason: SALINE FLUSH Last Admin: 12/20/19 06:32 Dose: 10 ml Documented by: Clinical Impression(s) from Imaging Studies Brain CT 12/19/19 16:[address]: 1[address] brain. Electronically Signed: Jeniffer Harmanrichard, at 17:37 EST Tel , Service support , Hip/Pelvis X-Ray 12/19/19 16:30 IMPRESSION: Right hip replacement. Demineralization. No acute fracture. Electronically Signed: Ryan Tavarez MD at 18:33 EST , Service support , Chest X-Ray 12/19/19 17:20 IMPRESSION: 1. Low inspiratory volume radiograph, presumably retrocardiac atelectasis. 2. Recommend repeat frontal and lateral radiography after patient''s condition improves for more definitive assessment. Electronically Signed: Albaean Kavin, at 18:07 EST Tel , Service support , Assessment/Plan Active and Suspected Problems YRIS (acute kidney injury) (Acute) Rhabdomyolysis (Acute) RECOMMENDATIONS: 1. Hold all narcotics 2. Continue aggressive fluid resuscitation 3. No blood transfusions at this time 4. Possible GI work-up following acute condition 5. Wean oxygen as tolerated IMPRESSIONS: 1. Acute hypoxic respiratory failure secondary to probable retained narcotics Patient did receive Narcan downstairs with some improvement in respiratory status. Patient appears to be responding to physical stimulus at this time. Can give Narcan if necessary, but anticipate improvement in respiratory status as renal function improves. Patient's ABG shows failure to compensate for metabolic acidosis, likely secondary to opiate therapy. Continue to monitor closely. 2. Acute kidney injury secondary to rhabdomyolysis Patient has had good response to aggressive hydration and renal flushing. Continue high-dose IV fluids. We will have to watch for retention as patient may require Lasix given concomitant history of congestive heart failure. Patient's potassium is marginal at this time and anticipate an element of wasting given increased urine output. Patient will be given potassium. 3. Acute toxic encephalopathy Clinical suspicion for retained opiates leading to change in mental status. Patient will be followed clinically. Continue with delirium protocol. Anticipate improvement with mobilization of morphine metabolites. 4. Chronic diastolic congestive heart failure Previous echocardiogram showed preserved ejection fraction with elevated pulmonary artery pressures. Patient is on minimal nasal cannula oxygen at this time. Will attempt to keep saturations in the low 90s. Patient will be at risk for worsening hypoxic respiratory status given need for aggressive fluid resuscitation. 5. Chronic pain syndrome/advanced age/hypertension Complicates care, management, recovery and prognosis. Hold on blood pressure medications at this time. Code Visit Inpatient E&M: 01024 Init Hosp L3
--- NOTE | 2019-12-20 08:36 | PN_ITS ---
Patient Problems: Active and Suspected Problems YRIS (acute kidney injury) (Acute) Rhabdomyolysis (Acute) Subjective: Chief complaint: Follow-up after admission for acute renal failure, rhabdomyolysis and acute metabolic encephalopathy as well as acute on chronic anemia. Patient seen and examined. No acute events overnight. This morning, she is alert, disoriented, knew her full name and date of but she is disoriented to time and place. She denies any pain. She thinks that she is in [place]. She is afebrile, tachycardic, blood pressure is maintained, pulse ox is 95% on 2 L. - Physical Exam Vitals/I&O's: Vital Signs Temp Pulse Resp BP Pulse Ox 98.7 F 112 H 12 140/85 H 95 12/20/19 03:00 12/20/19 08:00 12/20/19 08:00 12/20/19 08:00 12/20/19 08:00 Oxygen Flow Rate (L/min) 2 Oxygen Delivery Method Nasal Cannula Weight: 146 lb 13.246 oz Body Mass Index (BMI) 23.0 Finger Stick Blood Glucose 135 Intake and Output for Last 24 Hours 12/18/19 12/19/19 12/20/19 23:59 23:59 23:59 Intake Total 2500 / 2907.5 2997.5 / 2997.5 Output Total 550 / 550 Balance 2500 / 2707.5 2447.5 / 2447.5 General: Alert, Cooperative, No apparent distress, Confused, Disoriented HEENT: Atraumatic, PERRLA, EOMI, Normocephalic Oral: Moist Mucosa, No Gingival or Mucosal Lesions/ Ulcerations Neck: Supple, No JVD, Negative Carotid Bruits, Trachea Midline, Thyroid Normal Size and Texture Lungs: Clear to auscultation, Normal air movement, No rhonchi, No wheeze, No rales, Diminished Cardiovascular: Regular rate, Regular Rhythm, Normal S1, Normal S2, PMI Normal Abdomen: Bowel Sounds Present, Soft, Non Tender, Non-Distended, No Hepato- splenomegaly Extremities: No clubbing, No cyanosis, No edema Skin: No rashes, No breakdown Lymphatic: No Cervical, Supraclavicular, or Inguinal Adenopathy Neurological: Cranial nerves II-XII grossly intact, Motor Exam 5/5 strength throughout Psych/Mental Status: Appropriate, Flat Affect Microbiology Past 72 Hours 12/19/19 16:25 Stool Stool Occult Blood (BRENDA) - Final Occult Blood Positive Laboratory Results 12/19/19 16:15: WBC 12.2 H, RBC 3.10 L, Hgb 8.8 L, Hct 27.2 L, MCV 87.7, MCH 28.4, MCHC 32.4, RDW Std Deviation 43.6, RDW Coeff of Alvarado 13.9, Plt Count 203, MPV 10.9, Immature Gran % (Auto) SALES AND SERVICE AGENT, Neut % (Auto) SALES AND SERVICE AGENT, Lymph % (Auto) SALES AND SERVICE AGENT, [place] % (Auto) SALES AND SERVICE AGENT, Eos % (Auto) SALES AND SERVICE AGENT, Baso % (Auto) SALES AND SERVICE AGENT, Absolute Neuts (auto) 10.0 H, Absolute Lymphs (auto) 0.85, Total Counted 100, Neutrophils % (Manual) 77 H, Band Neutrophils % 5, Lymphocytes % (Manual) 7 L, Monocytes % (Manual) 10, Basophils % (Manual) 1, Nucleated RBC % SALES AND SERVICE AGENT, Differential Comment SALES AND SERVICE AGENT, Diff Path Review March foll, Platelet Estimate ADEQUATE, RBC Morphology N CYTIC, Hypochr omasia 1+ 12/19/19 16:15: D-Dimer Quant (PE/DVT) 3.12 H* 12/19/19 16:15: Sodium 130 L, Potassium 3.7, Chloride 94 L, Carbon Dioxide 25.0, Anion Gap 11, BUN 93 H, Creatinine 6.33 H, Estim Creat Clear Calc 6.16, Est GFR (MDRD) Af Amer 8 L, Est GFR (MDRD) Non-Af 7 L, BUN/Creatinine Ratio 14.7, Glucose 320 H, Calcium 9.2, Total Bilirubin 0.80, AST 155 H, ALT 54, Alkaline Phosphatase 71, Troponin I 0.043, Total Protein 6.1 L, Albumin 3.0 L, Globulin 3.1, Albumin/Globulin Ratio 1.0 12/19/19 16:15: B-Natriuretic Peptide 457.4 H 12/19/19 16:15: Total Creatine Kinase 5691 H 12/19/19 16:20: POC Glucose 269 H 12/19/19 16:38: Lactic Acid 1.7 12/19/19 17:32: Urine Color Yellow, Urine Clarity Sl. Cloudy, Urine pH 5.0, Ur Specific [place] 1.020, Urine Protein 30 H, Urine Glucose (UA) Normal, Urine Ketones 5 H, Urine Occult Blood 250 H, Urine Nitrite Negative, Urine Bilirubin 3 H, Urine Urobilinogen Normal, Ur Leukocyte Esterase 25 H, Urine RBC 10-25 SEEN, Urine WBC 0-5 SEEN, Ur Squamous Epith Cells 0-5 SEEN, Amorphous Sediment 2+ URATE, Urine Bacteria 0 SEEN, Urine Mucus 0 SEEN 12/19/19 17:32: Urine Opiates Screen POSITIVE H, Urine Methadone Screen NEGATIVE, Ur Barbiturates Screen NEGATIVE, Ur Phencyclidine Scrn NEGATIVE, Ur Amphetamines Screen NEGATIVE, U Methamphetamin-MDMA NEGATIVE, U Benzodiazepines Scrn NEGATIVE, Urine Cocaine Screen NEGATIVE, U Cannabinoids Screen NEGATIVE, Ur Drug Screen Comment 12/19/19 20:24: POC Glucose 89 12/19/19 20:28: WBC 9.0, RBC 2.59 L, Hgb 7.3 L, Hct 22.9 L, MCV 88.4, MCH 28.2, MCHC 31.9 L, RDW Std Deviation 43.5, RDW Coeff of Alvarado 13.9, Plt Count 167, MPV 9.8, Immature Gran % (Auto) 0.400, Neut % (Auto) 76.8 H, Lymph % (Auto) 5.9 L, [place] % (Auto) 14.7 H, Eos % (Auto) 2.1, Baso % (Auto) 0.1, Absolute Neuts (auto) 6.9, Absolute Lymphs (auto) 0.53 L, Nucleated RBC % 0, Differential Comment SCANNED 12/19/19 20:28: Troponin I 0.042 12/19/19 20:28: Sodium 134 L, Potassium 3.3 L, Chloride 101, Carbon Dioxide 23.0, Anion Gap 10, BUN 89 H, Creatinine 5.75 H, Estim Creat Clear Calc 7.97, Est GFR (MDRD) Af Amer 9 L, Est GFR (MDRD) Non-Af 8 L, BUN/Creatinine Ratio 15.5, Glucose 83, Calcium 8.6 12/20/19 05:04: WBC 8.4, RBC 2.46 L, Hgb 7.1 L, Hct 22.0 L, MCV 89.4, MCH 28.9, MCHC 32.3, RDW Std Deviation 45.6 H, RDW Coeff of Alvarado 14.1, Plt Count 162, MPV 10.7, Immature Gran % (Auto) 0.500, Neut % (Auto) 75.0 H, Lymph % (Auto) 6.4 L, [place] % (Auto) 15.2 H, Eos % (Auto) 2.7, Baso % (Auto) 0.2, Absolute Neuts (auto) 6.3, Absolute Lymphs (auto) 0.54 L, Nucleated RBC % 0, Differential Comment SCANNED, Hypochromasia 3+ 12/20/19 05:04: Sodium 137, Potassium 3.7, Chloride 108 H, Carbon Dioxide 19.0 L , Anion Gap 10, BUN 80 H, Creatinine 3.89 H, Estim Creat Clear Calc 11.78, Est GFR (MDRD) Af Amer 14 L, Est GFR (MDRD) Non-Af 12 L, BUN/Creatinine Ratio 20.6 H , Glucose 84, Calcium 7.8 L, Phosphorus 3.7, Magnesium 1.5 L, Total Bilirubin 0.70, AST 139 H, ALT 54, Alkaline Phosphatase 92, Total Protein 4.7 L, Albumin 2.2 L, Globulin 2.5, Albumin/Globulin Ratio 0.9 12/20/19 05:04: Total Creatine Kinase 3695 H 12/20/19 07:31: Specimen Type ART, Sample Site L Brachial, pH 7.27 L, Bicarbonate Actual 19.0 L, POC Total CO2 20, Base Excess -8 L, O2 Saturation 97, ABG pCO2 41.1, ABG pO2 109 H, O2 Delivery Device Nasal Can, Liter Flow 3.0, Blood Gas Notified Whom ICU , Blood Gas Notified Time 735 Clinical Impression(s) from Imaging Studies Brain CT 12/19/19 16:[address]: 1[address] brain. Electronically Signed: Jeniffer Vale at 17:37 EST Tel , Service support , Hip/Pelvis X-Ray 12/19/19 16:30 IMPRESSION: Right hip replacement. Demineralization. No acute fracture. Electronically Signed: Ryan Tavarez MD at 18:33 EST , Service support , Chest X-Ray 12/19/19 17:20 IMPRESSION: 1. Low inspiratory volume radiograph, presumably retrocardiac atelectasis. 2. Recommend repeat frontal and lateral radiography after patient''s condition improves for more definitive assessment. Electronically Signed: Jeniffer Vale, at 18:07 EST Tel , Service support , Current Medications Sodium Chloride () 1,000 mls @ 150 mls/hr IV .Q6H40M [facility] Last Admin: 12/20/19 08:14 Dose: 150 mls/hr Documented by: Pantoprazole Sodium 40 mg/ (Sodium Chloride) 110 mls @ 330 mls/hr IV Q24 [facility] Magnesium Sulfate () 4 gm in 100 mls @ 25 mls/hr IV X1 ONE Stop: 12/20/19 11:59 Nutritional Formula (Lactose Free) (Ensure Enlive) 120 ml PO 4X/DAY [facility] Last Admin: 12/19/19 21:25 Dose: Not Given Documented by: Ondansetron HCl (Zofran) 4 mg IV Q6H PRN PRN PRN Reason: NAUSEA/VOMITING Last Admin: 12/19/19 21:22 Dose: 4 mg Documented by: Potassium Chloride (K-Dur) 20 meq PO BIDCM [facility] Stop: 12/20/19 17:01 Sodium Chloride () 10 - 40 ml IV UD PRN PRN Reason: SALINE FLUSH Last Admin: 12/20/19 06:32 Dose: 10 ml Documented by: Medical Necessity - Tobacco Use Smoking Status: Never smoker Assessment/Plan All Active Problems YRIS (acute kidney injury) (Acute) Rhabdomyolysis (Acute) This is a 79 years old female patient presented to the emergency room because she was found on the floor confused and reportedly, she took morphine tablets and she was found to have acute renal failure secondary to rhabdomyolysis, acute metabolic encephalopathy which is attributed to morphine as well as acute on chronic anemia. #1 acute renal failure: Secondary to rhabdomyolysis and being on the floor for unknown time. Patient is on IV fluids, kidney function is improved. Admission creatinine was 6.33, it came down to 3.89 this morning. She does have a good urine output. Nephrotoxic medications held. She is afebrile, tachycardic, blood pressure is stable, pulse ox is 95% on 2 L. Plan to continue IV fluids, repeat BMP tomorrow morning. #2 rhabdomyolysis: CPK was 5691 with IV fluids, it came down to 3695. As mentioned above, patient was on the floor for unknown time. She is complaining of generalized body aches and pains but because of abnormalities. Plan as above. #3 hypokalemia/hypomagnesemia: Potassium replaced and corrected. Serum magnesium today is 1.5, received IV mag sulfate. Plan to repeat BMP and serum magnesium tomorrow. #4 acute metabolic encephalopathy: Attributed to morphine. Patient received IV Narcan earlier this morning because of low blood pressure and lethargy. She responded very quickly. At this morning, she is alert, oriented x1, confused. #5 acute on chronic anemia: Baseline hemoglobin has been around 8 g/dL. It is normocytic anemia. Stool is positive for occult blood. Today's hemoglobin is 7.1 g/dL. At this time, no active bleeding. No plan for transfusion unless hemoglobin came down below 7 g/dL. #6 hypertension: Blood pressure stable, tachycardic. HCTZ and lisinopril held because of acute renal failure. #7 chronic pain syndrome: Narcotics on hold due to altered mental status. #8 anxiety/depression: Duloxetine and Ativan held as well as trazodone. #9 DVT prophylaxis: SCDs. This note was generated with [employer] dictation software. It may contain incorrect words, spelling, and punctuation that were not noted in checking the note before signing. Code Visit Inpatient E&M: 27864 Subs Hosp L2
[2019-12-20] MEDS: Magnesium Sulfate 4gm/100mL 4 GM/100 ML IV.SOLN. IV (08:47)
--- NOTE | 2019-12-20 09:22 | CASEMGMT ---
RN CM Assessment Note: participated in ICU rounding. Presentation: [place], s/p fall @ home. Intro role of CM to patient. Pt has some confusion, difficulty answering some questions. Was able to discuss home environment and care needs, but RN CM requested to call daughter to verify. Call to Daughter Greer Valdez- no answer, message left requesting call back PCP: Dr. Erick Christensen III [facility]: [facility] Prescription coverage: yes Living arrangements: Lives in one story home. Pt states she does own bathing, dressing and daughters are able to help if needed. Transportation: daughters drive DME: walker DC PLAN: undetermined. Will await daughter's input re: home and PT/OT evaluations. List of [facility] facilities placed in room. Tommy SIMPSON RN ACM
[2019-12-20] MEDS: Metoprolol Tartrate 5 MG/5 ML Vial IV (13:10)
[2019-12-20 13:33] LABS: Pathologist Review Reviewed
[2019-12-20] MEDS: Metoprolol Tartrate 25 MG Tablet PO (21:32)
[2019-12-21] VITALS (26 sets, daily range): BP systolic 105–181; BP diastolic 56–110; PULSE 74–122; RESP 9–18; TEMP 36.8–37.2; O2SAT 90–100
[2019-12-21 00:20] LABS: Bedside Glucose 155 mg/dL (70-110)
[2019-12-21] MEDS: 0.9% Normal Saline 1,000 ML 150 ML IV (04:40)
[2019-12-21 06:09] LABS: Absolute Lymphocyte Count 0.86 X10^3/uL (0.83-4.51); Absolute Neutrophil Count 6.9 X10^3/uL (2.0-7.7); Basophil# 0.03 X10^3/uL; Basophil% 0.3 % (0-1); Eosinophils% 1.1 % (0-5); Hematocrit 26.2 % (37-47); Hemoglobin 8.2 g/dL (12.0-15.0); Lymphocyte # 0.86 X10^3/ul (4.0); Lymphocyte % 9.6 % (19-41); Mean Corp Hgb Conc 31.3 g/dL (32-36); Mean Corpuscular Hgb 28.5 pg (27.0-32.0); Mean Platelet Vol. 10.2 fl (6.2-12.0); Monocyte# 1.04 X10^3/uL; Monocyte% 11.6 % (0-10); NRBC Flagged by Analyzer 0 % (0-5); Neutrophil # 6.87 X10^3/uL (2.7-7.7); Neutrophil % 76.6 % (47-70); POSITIVE MORPHOLOGY YES; Platelet Count 181 K/mm3 (150-450); RBC Distribution Width CV 14.6 % (11.6-14.6); RBC Distribution Width SD 46.9 fl (35.1-43.9); Red Blood Count 2.88 M/mm3 (4.2-5.4)
[2019-12-21 06:18] LABS: Differential Indicated SCAN CRITERIA MET
[2019-12-21 07:03] LABS: Anisocytosis 1+; Differential Comment SCANNED; Macrocytosis RARE; Platelet Estimate ADEQUATE (ADEQ); Polychromasia RARE
[2019-12-21 07:29] LABS: Anion Gap 6 (5-15); BUN 53 mg/dL (7-18); BUN/Creat Ratio 29.8 RATIO (10-20); CPK Total, Creatine Kinase 1425 U/L (26-192); Calcium,Total 8.5 mg/dL (8.5-10.1); Chloride 114 mmol/L (98-107); Creatinine, Serum 1.78 mg/dL (0.55-1.02); EST Glomerular Filtration Rate 29 mL/min (>60); Est Glom Filt Rate - Afr Amer 36 mL/min (>60); Estimated Creatinine Clearance 25.74 ml/min; Glucose 119 mg/dL (74-106); Magnesium 2.8 mg/dL (1.6-2.6); Potassium 3.8 mmol/L (3.5-5.1); Sodium Level 142 mmol/L (136-145)
--- NOTE | 2019-12-21 07:44 | PCM.PN.INT ---
Subjective: Patient did well overnight. No acute issues were reported. Patient was on supplemental oxygen, but saturations did not drop. Patient did have some higher blood pressures, but no PRN medications were used. No fever was reported. Patient continues to have significant confusion. General: Alert, Cooperative, No apparent distress, Disoriented, - - No conversational dyspnea. Speaking in full sentences. HEENT: Atraumatic, PERRLA, EOMI, Normocephalic, - - No scleral icterus or injection noted Oral: Moist Mucosa, No Gingival or Mucosal Lesions/ Ulcerations Neck: Supple, No JVD, No Nodes, Trachea Midline Lungs: Clear to auscultation, Normal air movement, No rhonchi, No wheeze, No rales, - - Symmetric expansion. No dullness to percussion. Cardiovascular: Regular rate, Regular Rhythm, Normal S1, Normal S2, No murmurs, No rub noted, No Gallop Abdomen: Bowel Sounds Present, Soft, Non Tender, Non-Distended Extremities: No clubbing, No cyanosis, No edema, Capillary Refill Less than 3 Seconds Skin: No rashes, No breakdown Musculoskeletal: No Tenderness to Palpation of Joints or Extremities Lymphatic: No Cervical, Supraclavicular, or Inguinal Adenopathy Neurological: Cranial nerves II-XII grossly intact, Neuro grossly intact, Motor Exam 5/5 strength throughout Psych/Mental Status: Appropriate, Flat Affect Vital Signs Temp Pulse Resp BP Pulse Ox 36.8 C 87 14 157/94 H 97 12/21/19 00:00 12/21/19 07:00 12/21/19 07:00 12/21/19 07:00 12/21/19 07:00 Oxygen Flow Rate (L/min) 2 Oxygen Delivery Method Room Air Weight: 74.8 kg Body Mass Index (BMI) 23.0 Finger Stick Blood Glucose 135 Intake and Output for Last 24 Hours 12/19/19 12/20/19 12/21/19 23:59 23:59 23:59 Intake Total 2500 / 2907.5 5630.0 / 5750.0 1405.0 / 1405.0 Output Total 800 / 900 500 / 500 Balance 2500 / 2707.5 4830.0 / 4850.0 905.0 / 905.0 Labs (Last 48 Hours) 12/19/19 12/19/19 12/19/19 16:15 16:15 16:15 WBC 12.2 H RBC 3.10 L Hgb 8.8 L Hct 27.2 L MCV 87.7 MCH 28.4 MCHC 32.4 RDW Std Deviation 43.6 RDW Coeff of [place] 13.9 Plt Count 203 MPV 10.9 Immature Gran % (Auto) [employer]ERK Neut % (Auto) [employer]ERK Lymph % (Auto) [employer]ED [employer]ERK [place] % (Auto) [employer]ERK Eos % (Auto) [employer] CLERK Baso % (Auto) [employer]ED [employer] CLERK Absolute Neuts (auto) 10.0 H Absolute Lymphs (auto) 0.85 Total Counted 100 Neutrophils % (Manual) 77 H Band Neutrophils % 5 Lymphocytes % (Manual) 7 L Monocytes % (Manual) 10 Basophils % (Manual) 1 Nucleated RBC % [employer] Differential Comment [employer]ED [employer]ERK Diff Path Review Reviewed Platelet Estimate ADEQUATE RBC Morphology N CYTIC Polychromasia Hypochromasia 1+ Anisocytosis Macrocytosis D-Dimer Quant (PE/DVT) 3.12 H* Specimen Type Sample Site pH Bicarbonate Actual POC Total CO2 Base Excess O2 Saturation ABG pCO2 ABG pO2 O2 Delivery Device Liter Flow Blood Gas Notified Whom Blood Gas Notified Time Sodium 130 L Potassium 3.7 Chloride 94 L Carbon Dioxide 25.0 Anion Gap 11 BUN 93 H Creatinine 6.33 H Estim Creat Clear Calc 6.16 Est GFR (MDRD) Af Amer 8 L Est GFR (MDRD) Non-Af 7 L BUN/Creatinine Ratio 14.7 Glucose 320 H Lactic Acid Calcium 9.2 Phosphorus Magnesium Total Bilirubin 0.80 AST 155 H ALT 54 Alkaline Phosphatase 71 Total Creatine Kinase Troponin I 0.043 B-Natriuretic Peptide Total Protein 6.1 L Albumin 3.0 L Globulin 3.1 Albumin/Globulin Ratio 1.0 Urine Color Urine Clarity Urine pH Ur Specific [place] Urine Protein Urine Glucose (UA) Urine Ketones Urine Occult Blood Urine Nitrite Urine Bilirubin Urine Urobilinogen Ur Leukocyte Esterase Urine RBC Urine WBC Ur Squamous Epith Cells Amorphous Sediment Urine Bacteria Urine Mucus Urine Opiates Screen Urine Methadone Screen Ur Barbiturates Screen Ur Phencyclidine Scrn Ur Amphetamines Screen U Methamphetamin-MDMA U Benzodiazepines Scrn Urine Cocaine Screen U Cannabinoids Screen Ur Drug Screen Comment POC Glucose 12/19/19 12/19/19 12/19/19 16:15 16:15 16:20 WBC RBC Hgb Hct MCV MCH MCHC RDW Std Deviation RDW Coeff of [place] Plt Count MPV Immature Gran % (Auto) Neut % (Auto) Lymph % (Auto) [place] % (Auto) Eos % (Auto) Baso % (Auto) Absolute Neuts (auto) Absolute Lymphs (auto) Total Counted Neutrophils % (Manual) Band Neutrophils % Lymphocytes % (Manual) Monocytes % (Manual) Basophils % (Manual) Nucleated RBC % Differential Comment Diff Path Review Platelet Estimate RBC Morphology Polychromasia Hypochromasia Anisocytosis Macrocytosis D-Dimer Quant (PE/DVT) Specimen Type Sample Site pH Bicarbonate Actual POC Total CO2 Base Excess O2 Saturation ABG pCO2 ABG pO2 O2 Delivery Device Liter Flow Blood Gas Notified Whom Blood Gas Notified Time Sodium Potassium Chloride Carbon Dioxide Anion Gap BUN Creatinine Estim Creat Clear Calc Est GFR (MDRD) Af Amer Est GFR (MDRD) Non-Af BUN/Creatinine Ratio Glucose Lactic Acid Calcium Phosphorus Magnesium Total Bilirubin AST ALT Alkaline Phosphatase Total Creatine Kinase 5691 H Troponin I B-Natriuretic Peptide 457.4 H Total Protein Albumin Globulin Albumin/Globulin Ratio Urine Color Urine Clarity Urine pH Ur Specific [place] Urine Protein Urine Glucose (UA) Urine Ketones Urine Occult Blood Urine Nitrite Urine Bilirubin Urine Urobilinogen Ur Leukocyte Esterase Urine RBC Urine WBC Ur Squamous Epith Cells Amorphous Sediment Urine Bacteria Urine Mucus Urine Opiates Screen Urine Methadone Screen Ur Barbiturates Screen Ur Phencyclidine Scrn Ur Amphetamines Screen U Methamphetamin-MDMA U Benzodiazepines Scrn Urine Cocaine Screen U Cannabinoids Screen Ur Drug Screen Comment POC Glucose 269 H 12/19/19 12/19/19 12/19/19 16:38 17:32 17:32 WBC RBC Hgb Hct MCV MCH MCHC RDW Std Deviation RDW Coeff of [place] Plt Count MPV Immature Gran % (Auto) Neut % (Auto) Lymph % (Auto) [place] % (Auto) Eos % (Auto) Baso % (Auto) Absolute Neuts (auto) Absolute Lymphs (auto) Total Counted Neutrophils % (Manual) Band Neutrophils % Lymphocytes % (Manual) Monocytes % (Manual) Basophils % (Manual) Nucleated RBC % Differential Comment Diff Path Review Platelet Estimate RBC Morphology Polychromasia Hypochromasia Anisocytosis Macrocytosis D-Dimer Quant (PE/DVT) Specimen Type Sample Site pH Bicarbonate Actual POC Total CO2 Base Excess O2 Saturation ABG pCO2 ABG pO2 O2 Delivery Device Liter Flow Blood Gas Notified Whom Blood Gas Notified Time Sodium Potassium Chloride Carbon Dioxide Anion Gap BUN Creatinine Estim Creat Clear Calc Est GFR (MDRD) Af Amer Est GFR (MDRD) Non-Af BUN/Creatinine Ratio Glucose Lactic Acid 1.7 Calcium Phosphorus Magnesium Total Bilirubin AST ALT Alkaline Phosphatase Total Creatine Kinase Troponin I B-Natriuretic Peptide Total Protein Albumin Globulin Albumin/Globulin Ratio Urine Color Yellow Urine Clarity Sl. Cloudy Urine pH 5.0 Ur Specific [place] 1.020 Urine Protein 30 H Urine Glucose (UA) Normal Urine Ketones 5 H Urine Occult Blood 250 H Urine Nitrite Negative Urine Bilirubin 3 H Urine Urobilinogen Normal Ur Leukocyte Esterase 25 H Urine RBC 10-25 SEEN Urine WBC 0-5 SEEN Ur Squamous Epith Cells 0-5 SEEN Amorphous Sediment 2+ URATE Urine Bacteria 0 SEEN Urine Mucus 0 SEEN Urine Opiates Screen POSITIVE H Urine Methadone Screen NEGATIVE Ur Barbiturates Screen NEGATIVE Ur Phencyclidine Scrn NEGATIVE Ur Amphetamines Screen NEGATIVE U Methamphetamin-MDMA NEGATIVE U Benzodiazepines Scrn NEGATIVE Urine Cocaine Screen NEGATIVE U Cannabinoids Screen NEGATIVE Ur Drug Screen Comment POC Glucose 12/19/19 12/19/19 12/19/19 20:24 20:28 20:28 WBC 9.0 RBC 2.59 L Hgb 7.3 L Hct 22.9 L MCV 88.4 MCH 28.2 MCHC 31.9 L RDW Std Deviation 43.5 RDW Coeff of [place] 13.9 Plt Count 167 MPV 9.8 Immature Gran % (Auto) 0.400 Neut % (Auto) 76.8 H Lymph % (Auto) 5.9 L [place] % (Auto) 14.7 H Eos % (Auto) 2.1 Baso % (Auto) 0.1 Absolute Neuts (auto) 6.9 Absolute Lymphs (auto) 0.53 L Total Counted Neutrophils % (Manual) Band Neutrophils % Lymphocytes % (Manual) Monocytes % (Manual) Basophils % (Manual) Nucleated RBC % 0 Differential Comment SCANNED Diff Path Review Platelet Estimate RBC Morphology Polychromasia Hypochromasia Anisocytosis Macrocytosis D-Dimer Quant (PE/DVT) Specimen Type Sample Site pH Bicarbonate Actual POC Total CO2 Base Excess O2 Saturation ABG pCO2 ABG pO2 O2 Delivery Device Liter Flow Blood Gas Notified Whom Blood Gas Notified Time Sodium Potassium Chloride Carbon Dioxide Anion Gap BUN Creatinine Estim Creat Clear Calc Est GFR (MDRD) Af Amer Est GFR (MDRD) Non-Af BUN/Creatinine Ratio Glucose Lactic Acid Calcium Phosphorus Magnesium Total Bilirubin AST ALT Alkaline Phosphatase Total Creatine Kinase Troponin I 0.042 B-Natriuretic Peptide Total Protein Albumin Globulin Albumin/Globulin Ratio Urine Color Urine Clarity Urine pH Ur Specific [place] Urine Protein Urine Glucose (UA) Urine Ketones Urine Occult Blood Urine Nitrite Urine Bilirubin Urine Urobilinogen Ur Leukocyte Esterase Urine RBC Urine WBC Ur Squamous Epith Cells Amorphous Sediment Urine Bacteria Urine Mucus Urine Opiates Screen Urine Methadone Screen Ur Barbiturates Screen Ur Phencyclidine Scrn Ur Amphetamines Screen U Methamphetamin-MDMA U Benzodiazepines Scrn Urine Cocaine Screen U Cannabinoids Screen Ur Drug Screen Comment POC Glucose 89 12/19/19 12/20/19 12/20/19 20:28 05:04 05:04 WBC 8.4 RBC 2.46 L Hgb 7.1 L Hct 22.0 L MCV 89.4 MCH 28.9 MCHC 32.3 RDW Std Deviation 45.6 H RDW Coeff of [place] 14.1 Plt Count 162 MPV 10.7 Immature Gran % (Auto) 0.500 Neut % (Auto) 75.0 H Lymph % (Auto) 6.4 L [place] % (Auto) 15.2 H Eos % (Auto) 2.7 Baso % (Auto) 0.2 Absolute Neuts (auto) 6.3 Absolute Lymphs (auto) 0.54 L Total Counted Neutrophils % (Manual) Band Neutrophils % Lymphocytes % (Manual) Monocytes % (Manual) Basophils % (Manual) Nucleated RBC % 0 Differential Comment SCANNED Diff Path Review Platelet Estimate RBC Morphology Polychromasia Hypochromasia 3+ Anisocytosis Macrocytosis D-Dimer Quant (PE/DVT) Specimen Type Sample Site pH Bicarbonate Actual POC Total CO2 Base Excess O2 Saturation ABG pCO2 ABG pO2 O2 Delivery Device Liter Flow Blood Gas Notified Whom Blood Gas Notified Time Sodium 134 L 137 Potassium 3.3 L 3.7 Chloride 101 108 H Carbon Dioxide 23.0 19.0 L Anion Gap 10 10 BUN 89 H 80 H Creatinine 5.75 H 3.89 H Estim Creat Clear Calc 7.97 11.78 Est GFR (MDRD) Af Amer 9 L 14 L Est GFR (MDRD) Non-Af 8 L 12 L BUN/Creatinine Ratio 15.5 20.6 H Glucose 83 84 Lactic Acid Calcium 8.6 7.8 L Phosphorus 3.7 Magnesium 1.5 L Total Bilirubin 0.70 AST 139 H ALT 54 Alkaline Phosphatase 92 Total Creatine Kinase Troponin I B-Natriuretic Peptide Total Protein 4.7 L Albumin 2.2 L Globulin 2.5 Albumin/Globulin Ratio 0.9 Urine Color Urine Clarity Urine pH Ur Specific [place] Urine Protein Urine Glucose (UA) Urine Ketones Urine Occult Blood Urine Nitrite Urine Bilirubin Urine Urobilinogen Ur Leukocyte Esterase Urine RBC Urine WBC Ur Squamous Epith Cells Amorphous Sediment Urine Bacteria Urine Mucus Urine Opiates Screen Urine Methadone Screen Ur Barbiturates Screen Ur Phencyclidine Scrn Ur Amphetamines Screen U Methamphetamin-MDMA U Benzodiazepines Scrn Urine Cocaine Screen U Cannabinoids Screen Ur Drug Screen Comment POC Glucose 12/20/19 12/20/19 12/21/19 05:04 07:31 00:13 WBC RBC Hgb Hct MCV MCH MCHC RDW Std Deviation RDW Coeff of [place] Plt Count MPV Immature Gran % (Auto) Neut % (Auto) Lymph % (Auto) [place] % (Auto) Eos % (Auto) Baso % (Auto) Absolute Neuts (auto) Absolute Lymphs (auto) Total Counted Neutrophils % (Manual) Band Neutrophils % Lymphocytes % (Manual) Monocytes % (Manual) Basophils % (Manual) Nucleated RBC % Differential Comment Diff Path Review Platelet Estimate RBC Morphology Polychromasia Hypochromasia Anisocytosis Macrocytosis D-Dimer Quant (PE/DVT) Specimen Type ART Sample Site L Brachial pH 7.27 L Bicarbonate Actual 19.0 L POC Total CO2 20 Base Excess -8 L O2 Saturation 97 ABG pCO2 41.1 ABG pO2 109 H O2 Delivery Device Nasal Can Liter Flow 3.0 Blood Gas Notified Whom ICU MD Blood Gas Notified Time 735 Sodium Potassium Chloride Carbon Dioxide Anion Gap BUN Creatinine Estim Creat Clear Calc Est GFR (MDRD) Af Amer Est GFR (MDRD) Non-Af BUN/Creatinine Ratio Glucose Lactic Acid Calcium Phosphorus Magnesium Total Bilirubin AST ALT Alkaline Phosphatase Total Creatine Kinase 3695 H Troponin I B-Natriuretic Peptide Total Protein Albumin Globulin Albumin/Globulin Ratio Urine Color Urine Clarity Urine pH Ur Specific [place] Urine Protein Urine Glucose (UA) Urine Ketones Urine Occult Blood Urine Nitrite Urine Bilirubin Urine Urobilinogen Ur Leukocyte Esterase Urine RBC Urine WBC Ur Squamous Epith Cells Amorphous Sediment Urine Bacteria Urine Mucus Urine Opiates Screen Urine Methadone Screen Ur Barbiturates Screen Ur Phencyclidine Scrn Ur Amphetamines Screen U Methamphetamin-MDMA U Benzodiazepines Scrn Urine Cocaine Screen U Cannabinoids Screen Ur Drug Screen Comment POC Glucose 155 H 12/21/19 12/21/19 05:55 05:55 WBC 9.0 RBC 2.88 L Hgb 8.2 L Hct 26.2 L MCV 91.0 MCH 28.5 MCHC 31.3 L RDW Std Deviation 46.9 H RDW Coeff of [place] 14.6 Plt Count 181 MPV 10.2 Immature Gran % (Auto) 0.800 Neut % (Auto) 76.6 H Lymph % (Auto) 9.6 L [place] % (Auto) 11.6 H Eos % (Auto) 1.1 Baso % (Auto) 0.3 Absolute Neuts (auto) 6.9 Absolute Lymphs (auto) 0.86 Total Counted Neutrophils % (Manual) Band Neutrophils % Lymphocytes % (Manual) Monocytes % (Manual) Basophils % (Manual) Nucleated RBC % 0 Differential Comment SCANNED Diff Path Review Platelet Estimate ADEQUATE RBC Morphology Polychromasia RARE Hypochromasia Anisocytosis 1+ Macrocytosis RARE D-Dimer Quant (PE/DVT) Specimen Type Sample Site pH Bicarbonate Actual POC Total CO2 Base Excess O2 Saturation ABG pCO2 ABG pO2 O2 Delivery Device Liter Flow Blood Gas Notified Whom Blood Gas Notified Time Sodium 142 Potassium 3.8 Chloride 114 H Carbon Dioxide 22.0 Anion Gap 6 BUN 53 H Creatinine 1.78 H Estim Creat Clear Calc 25.74 Est GFR (MDRD) Af Amer 36 L Est GFR (MDRD) Non-Af 29 L BUN/Creatinine Ratio 29.8 H Glucose 119 H Lactic Acid Calcium 8.5 Phosphorus 2.0 L Magnesium 2.8 H Total Bilirubin AST ALT Alkaline Phosphatase Total Creatine Kinase 1425 H Troponin I B-Natriuretic Peptide Total Protein Albumin Globulin Albumin/Globulin Ratio Urine Color Urine Clarity Urine pH Ur Specific [place] Urine Protein Urine Glucose (UA) Urine Ketones Urine Occult Blood Urine Nitrite Urine Bilirubin Urine Urobilinogen Ur Leukocyte Esterase Urine RBC Urine WBC Ur Squamous Epith Cells Amorphous Sediment Urine Bacteria Urine Mucus Urine Opiates Screen Urine Methadone Screen Ur Barbiturates Screen Ur Phencyclidine Scrn Ur Amphetamines Screen U Methamphetamin-MDMA U Benzodiazepines Scrn Urine Cocaine Screen U Cannabinoids Screen Ur Drug Screen Comment POC Glucose Microbiology 12/19/19 16:25 Stool Stool Occult Blood (BRENDA) - Final Occult Blood Positive Medical Necessity - Tobacco Use Smoking Status: Never smoker Tobacco Use: Non-smoker Assessment/Plan All Active Problems YRIS (acute kidney injury) (Acute) Rhabdomyolysis (Acute) RECOMMENDATIONS: 1. Hold all narcotics 2. Continue aggressive fluid resuscitation 3. Reinitiate baseline antihypertensives at half dose 4. Transition to p.o. PPI. Possible GI work-up following acute condition 5. Wean oxygen as tolerated 6. Okay to leave the intensive care unit from my perspective IMPRESSIONS: 1. Acute hypoxic respiratory failure secondary to probable retained narcotics Patient appears to be at baseline from a respiratory status. Patient was on minimal nasal cannula oxygen overnight, but no desaturations were noted. Increase activity as tolerated. Encourage incentive spirometer. Patient can have a walking oximetry prior to discharge 2. Acute kidney injury secondary to rhabdomyolysis Patient has had good response to aggressive hydration and renal flushing. Continue high-dose IV fluids. Patient appears to be responding well to therapy. CK is almost in normal limits. No need to continue to monitor. We will give potassium phosphate IV. 3. Acute toxic encephalopathy Clinical suspicion for retained opiates leading to change in mental status. Patient will be followed clinically. Continue with delirium protocol. Anticipate improvement with mobilization of morphine metabolites. 4. Chronic diastolic congestive heart failure Previous echocardiogram showed preserved ejection fraction with elevated pulmonary artery pressures. Patient is on minimal nasal cannula oxygen at this time. Will attempt to keep saturations in the low 90s. Patient will be at risk for worsening hypoxic respiratory status given need for aggressive fluid resuscitation. 5. Chronic pain syndrome/advanced age/hypertensive urgency Complicates care, management, recovery and prognosis. Elevated blood pressures likely secondary to holding of baseline medications. Continue rate control. Reinitiate other blood pressure medications in a stepwise fashion. Code Visit Inpatient E&M: 64316 [facility] L[facility]
[2019-12-21] MEDS: Iron Polysaccharide Complex 150 MG CAPSULE PO (09:04)
[2019-12-21] MEDS: hydroCHLOROthiazide 12.5mg 12.5 MG PO (09:04)
[2019-12-21] MEDS: Metoprolol Tartrate 25 MG Tablet PO ×2 (09:04→21:31)
[2019-12-21] MEDS: Pantoprazole Sodium 40 MG Tablet PO (09:05)
[2019-12-21] MEDS: Lisinopril 20 MG Tablet PO (09:05)
--- NOTE | 2019-12-21 09:27 | PCM.PROGNOTE ---
Patient Problems: Active and Suspected Problems YRIS (acute kidney injury) (Acute) Rhabdomyolysis (Acute) Subjective: Chief complaint: Follow-up after admission for acute renal failure, rhabdomyolysis and acute metabolic encephalopathy as well as acute on chronic anemia. Patient seen and examined. No acute events overnight. This morning, patient mentioned that she is worse, thinks that she is confused, could not choose home admitting for breakfast. She is alert and oriented x2, disoriented only to time. She complained of muscle pains and aches all over. Nursing staff reported that she has been forgetful. She is afebrile, slightly tachycardic blood pressure is elevated, pulse ox is maintained on room air. - Physical Exam Vitals/I&O's: Vital Signs Temp Pulse Resp BP Pulse Ox 98.3 F 110 H 11 L 180/109 H 94 12/21/19 08:00 12/21/19 09:04 12/21/19 09:00 12/21/19 09:04 12/21/19 09:00 Oxygen Flow Rate (L/min) 2 Oxygen Delivery Method Room Air Weight: 164 lb 14.492 oz Body Mass Index (BMI) 23.0 Finger Stick Blood Glucose 135 Intake and Output for Last 24 Hours 12/19/19 12/20/19 12/21/19 23:59 23:59 23:59 Intake Total 2500 / 2907.5 5630.0 / 5750.0 1607.5 / 1607.5 Output Total 800 / 900 500 / 500 Balance 2500 / 2707.5 4830.0 / 4850.0 1107.5 / 1107.5 General: Alert, Cooperative, Disoriented, - - Anxious. HEENT: Atraumatic, PERRLA, EOMI, Normocephalic Oral: Moist Mucosa, No Gingival or Mucosal Lesions/ Ulcerations Neck: Supple, No JVD, Negative Carotid Bruits, Trachea Midline, Thyroid Normal Size and Texture Lungs: Clear to auscultation, Normal air movement, No rhonchi, No wheeze, No rales, Diminished Cardiovascular: Regular rate, Regular Rhythm, Normal S1, Normal S2, PMI Normal, Tachycardic Abdomen: Bowel Sounds Present, Soft, Non Tender, Non-Distended, No Hepato-splenomegaly Extremities: No clubbing, No cyanosis, No edema Skin: No rashes, No breakdown Lymphatic: No Cervical, Supraclavicular, or Inguinal Adenopathy Neurological: Cranial nerves II-XII grossly intact, Neuro grossly intact Psych/Mental Status: Appropriate, Anxious Microbiology Past 72 Hours 12/19/19 16:25 Stool Stool Occult Blood (BRENDA) - Final Occult Blood Positive Laboratory Results 12/19/19 16:15: Diff Path Review Reviewed 12/21/19 00:13: POC Glucose 155 H 12/21/19 05:55: WBC 9.0, RBC 2.88 L, Hgb 8.2 L, Hct 26.2 L, MCV 91.0, MCH 28.5, MCHC 31.3 L, RDW Std Deviation 46.9 H, RDW Coeff of Alvarado 14.6, Plt Count 181, MPV 10.2, Immature Gran % (Auto) 0.800, Neut % (Auto) 76.6 H, Lymph % (Auto) 9.6 L, [place] % (Auto) 11.6 H, Eos % (Auto) 1.1, Baso % (Auto) 0.3, Absolute Neuts (auto) 6.9, Absolute Lymphs (auto) 0.86, Nucleated RBC % 0, Differential Comment SCANNED, Platelet Estimate ADEQUATE, Polychromasia RARE, Anisocytosis 1+, Macrocytosis RARE 12/21/19 05:55: Sodium 142, Potassium 3.8, Chloride 114 H, Carbon Dioxide 22.0, Anion Gap 6, BUN 53 H, Creatinine 1.78 H, Estim Creat Clear Calc 25.74, Est GFR (MDRD) Af Amer 36 L, Est GFR (MDRD) Non-Af 29 L, BUN/Creatinine Ratio 29.8 H, Glucose 119 H, Calcium 8.5, Phosphorus 2.0 L, Magnesium 2.8 H, Total Creatine Kinase 1425 H Current Medications Hydralazine HCl (Apresoline Iv) 10 mg IV Q8H PRN PRN PRN Reason: for SBP>160 Hydrochlorothiazide () 12.5 mg PO DAILY [facility] Last Admin: 12/21/19 09:04 Dose: 12.5 mg Documented by: Sodium Chloride () 1,000 mls @ 150 mls/hr IV .Q6H40M [place] Last Infusion: 12/21/19 08:00 Dose: 150 mls/hr Documented by: Potassium Phosphate 30 mm/ (Sodium Chloride) 260 mls @ 42 mls/hr IV X1 ONE Stop: 12/21/19 14:41 Last Admin: 12/21/19 09:10 Dose: 42 mls/hr Documented by: Lisinopril (Zestril) 20 mg PO DAILY [facility] Last Admin: 12/21/19 09:05 Dose: 20 mg Documented by: Metoprolol Tartrate (Lopressor (Beta Preston)) 25 mg PO BID [facility] Last Admin: 12/21/19 09:04 Dose: 25 mg Documented by: Nutritional Formula (Lactose Free) (Ensure Enlive) 120 ml PO 4X/DAY [facility] Last Admin: 12/21/19 09:11 Dose: 120 ml Documented by: Ondansetron HCl (Zofran) 4 mg IV Q6H PRN PRN PRN Reason: NAUSEA/VOMITING Last Admin: 12/19/19 21:22 Dose: 4 mg Documented by: Pantoprazole Sodium (Protonix) 40 mg PO DAILY [facility] Last Admin: 12/21/19 09:05 Dose: 40 mg Documented by: Polysaccharide Iron Complex (Ferrex 150) 150 mg PO DAILYCM [facility] Last Admin: 12/21/19 09:04 Dose: 150 mg Documented by: Sodium Chloride () 10 - 40 ml IV UD PRN PRN Reason: SALINE FLUSH Last Admin: 12/20/19 06:32 Dose: 10 ml Documented by: Medical Necessity - Tobacco Use Smoking Status: Never smoker Tobacco Use: Non-smoker Assessment/Plan All Active Problems YRIS (acute kidney injury) (Acute) Rhabdomyolysis (Acute) This is a 79 years old female patient presented to the emergency room because she was found on the floor confused and reportedly, she took morphine tablets and she was found to have acute renal failure secondary to rhabdomyolysis, acute metabolic encephalopathy which is attributed to morphine and also found to have acute on chronic anemia. #1 acute renal failure: Secondary to rhabdomyolysis and being on the floor for unknown time. Remains on IV fluids. This creatinine is 1.78, BUN is 53, improving. She has satisfactory urine output. She is afebrile, tachycardic, blood pressure is elevated, pulse ox is 95% on room air. She is tolerating diet. Plan to transfer to PCU later today. #2 rhabdomyolysis: CPK down to 1425 with IV fluids. As mentioned above, patient was on the floor for unknown time. She is complaining of generalized body aches and pains. Plan as above. #3 hypokalemia/hypomagnesemia: Potassium and magnesium replaced and corrected. Today's potassium 3.8, magnesium is 2.8. #4 acute metabolic encephalopathy: Attributed to morphine, improving. She has been oriented x2, disoriented to time. She has been forgetful. #5 acute on chronic anemia: Baseline hemoglobin has been around 8 g/dL. It is normocytic anemia. Stool is positive for occult blood. Today's hemoglobin is 8.2 g/dL. At this time, no active bleeding. No blood transfusion given. Plan to monitor. #6 hypertension: Blood pressure is elevated, tachycardic. Started back on the distal dose of HCTZ and lisinopril as well as metoprolol. Plan to start IV adenosine PRN. #7 chronic pain syndrome: Narcotics on hold due to altered mental status. #8 anxiety/depression: Duloxetine and Ativan held as well as trazodone. We may need to start her on a small dose of Ativan as needed because of anxiety. #9 DVT prophylaxis: SCDs. This note was generated with [employer] dictation software. It may contain incorrect words, spelling, and punctuation that were not noted in checking the note before signing. Code Visit Inpatient E&M: 15975 Subs Hosp L2
--- NOTE | 2019-12-21 10:33 | CM.UR ---
Participated in interdisciplinary rounds this am. Patient is more alert. Still remains forgetful. She states she continues to get confused easily and gave example that she had a lot of trouble ordering her breakfast. Also complained of being very stiff. PT explained that moving around will help with the stiffness. discussed with RN, Dr. Coles and charge nurse that we had left information regarding SNFs for the family. Received a vm from Patito Vilchis daughter returning call to JOSE Pretty. I called Patito back at this time. We discussed the recommendation for SNF placement. States that it may be difficult. States the patient is very independent and strongly opposed to ECF placement. Daughter is a nurse and understands the difference between SNF and ECF. States that she takes care of day to day but the daughters come in at least once per week to clean, do laundry, grocery shop, change cat litter, etc. States the patient has a love of her life cat that she couldn't are leaving. Patito asked about TCU or IP rehab here at the hospital. She thinks she will be much agreeable to that. Explained that the patient is aware of the confusion she is having and is open with discussing that. Also went over what she did with therapy and their recommendations. Daughter is agreeable that SNF placement would be appropriate. States she will discuss with other siblings. also explained we will have to obtain authorization from her insurance and can't start that til Monday. Explained I'll have the SW come and discuss SNF placement with her and see if TCU is appropriate. Fernando العراقي RN, [facility].
[2019-12-21] MEDS: 0.9% Normal Saline 1,000 ML 100 ML IV ×2 (11:48→21:32)
--- NOTE | 2019-12-21 13:40 | CASEMGMT ---
SOCIAL WORK INFORMANT: FINGERPRINTER RHINA REASON FOR REFERRAL: D/C PLANNING MET WITH PATIENT IN ROOM. INTRODUCED ROLE AND REASON FOR REFERRAL. PATIENT REPORTS LIVES HOME ALONE IN A 1 STORY HOME. ATTEMPTED TO DISCUSS DISCHARGE PLAN. PATIENT NOT UNDERSTANDING QUESTIONS ASKED BY THIS WORKER IN REGARDS TO ASSISTANCE AT HOME BY DAUGHTERS AND EXPLANATION OF REHAB PRIOR TO HOME GOING. ATTEMPTED TO DISCUSS POSSIBLE REFERRAL TO TCU. PATIENT STATES, I'M JUST REALLY CONFUSED. SUPPORT PROVIDED. DISCUSSED PATIENT'S STATUS WITH NURSE. NURSE SPOKE WITH PATIENT'S DAUGHTER AND PER DAUGHTER, CONFUSION IS NOT NORMAL FOR PATIENT. SPECIAL [employer] COMBATANT CREWMAN TO FOLLOW UP ON MONDAY FOR SAFE AND APPROPRIATE D/C PLANNING. Jalyn MAYA, HUMID SYSTEM OPERATOR, WATER PUMPER.
[2019-12-21] MEDS: 0.9% Saline Lock 10 ML Syringe IV (14:45)
[2019-12-21] MEDS: hydrALAZINE 20 MG/ML Vial 10 MG IV (14:46)
--- NOTE | 2019-12-21 21:30 | NURSING ---
pt's silver color necklace sent home with daughter, Greer
[2019-12-22] VITALS (14 sets, daily range): BP systolic 150–167; BP diastolic 103–113; PULSE 100–131; RESP 14–20; TEMP 36.3–37.4; O2SAT 95–97
[2019-12-22] MEDS: Hydrocortisone 2.5% Crm 1 APPLIC TOPICAL ×2 (01:15→11:11)
[2019-12-22 06:44] LABS: Absolute Lymphocyte Count 0.78 X10^3/uL (0.83-4.51); Absolute Neutrophil Count 8.7 X10^3/uL (2.0-7.7); Basophil# 0.04 X10^3/uL; Basophil% 0.3 % (0-1); Eosinophil# 0.03 X10^3/uL; Eosinophils% 0.3 % (0-5); Hematocrit 27.9 % (37-47); Lymphocyte # 0.78 X10^3/ul (4.0); Lymphocyte % 6.8 % (19-41); Mean Corp Hgb Conc 32.3 g/dL (32-36); Mean Corpuscular Hgb 28.1 pg (27.0-32.0); Mean Corpuscular Volume 87.2 fL (81-99); Mean Platelet Vol. 10.6 fl (6.2-12.0); Monocyte# 1.58 X10^3/uL; Monocyte% 13.7 % (0-10); NRBC Flagged by Analyzer 0.4 % (0-5); Neutrophil # 8.74 X10^3/uL (2.7-7.7); Neutrophil % 75.6 % (47-70); POSITIVE DIFFERENTIAL YES; Platelet Count 209 K/mm3 (150-450); RBC Distribution Width CV 15.1 % (11.6-14.6); RBC Distribution Width SD 46.2 fl (35.1-43.9); White Blood Count 11.6 K/mm3 (4.4-11.0)
[2019-12-22 06:55] LABS: Anion Gap 7 (5-15); BUN 33 mg/dL (7-18); BUN/Creat Ratio 32.7 RATIO (10-20); Calcium,Total 8.6 mg/dL (8.5-10.1); Chloride 110 mmol/L (98-107); Creatinine, Serum 1.01 mg/dL (0.55-1.02); EST Glomerular Filtration Rate 56 mL/min (>60); Est Glom Filt Rate - Afr Amer 68 mL/min (>60); Estimated Creatinine Clearance 45.36 ml/min; Glucose 154 mg/dL (74-106); Potassium 3.3 mmol/L (3.5-5.1); Sodium Level 140 mmol/L (136-145)
[2019-12-22] MEDS: Hydrocortisone 25 MG Suppository RECTAL ×2 (07:04→21:07)
[2019-12-22 07:11] LABS: Differential Indicated SCAN CRITERIA MET
[2019-12-22] MEDS: 0.9% Normal Saline 1,000 ML 100 ML IV (08:12)
[2019-12-22] MEDS: Iron Polysaccharide Complex 150 MG CAPSULE PO (08:37)
[2019-12-22] MEDS: Metoprolol Tartrate 25 MG Tablet PO ×2 (08:38→10:54)
[2019-12-22] MEDS: hydroCHLOROthiazide 12.5mg 12.5 MG PO (08:38)
[2019-12-22] MEDS: Lisinopril 20 MG Tablet PO (08:39)
[2019-12-22] MEDS: Pantoprazole Sodium 40 MG Tablet PO (08:39)
--- NOTE | 2019-12-22 08:46 | PCM.PN.INT ---
Subjective: Patient transferred out of the intensive care unit yesterday. Patient continues to be confused, but has been hemodynamically stable on room air. Blood pressure has been slightly elevated. Patient states I am too cold to think when asked questions of orientation. Patient does not report any significant pain or shortness of breath. General: Alert, Cooperative, No apparent distress, Confused, Disoriented, - - No conversational dyspnea. HEENT: Atraumatic, PERRLA, EOMI, Normocephalic, - - No scleral icterus or injection noted Oral: Moist Mucosa, No Gingival or Mucosal Lesions/ Ulcerations Neck: Supple, No JVD, No Nodes, Trachea Midline Lungs: Clear to auscultation, Normal air movement, No rhonchi, No wheeze, No rales, - - Symmetric expansion. No dullness to percussion. Cardiovascular: Normal S1, Normal S2, No murmurs, No rub noted, No Gallop, Tachycardic Abdomen: Bowel Sounds Present, Soft, Non Tender, Non-Distended Extremities: No clubbing, No cyanosis, No edema Skin: No rashes, No breakdown Musculoskeletal: No Tenderness to Palpation of Joints or Extremities Neurological: Cranial nerves II-XII grossly intact, Neuro grossly intact, Motor Exam 5/5 strength throughout, Sensory exam intact to light touch and pain Psych/Mental Status: Normal Affect, Appropriate Vital Signs Temp Pulse Resp BP Pulse Ox 37.4 C H 115 H 16 150/107 H 96 12/22/19 08:09 12/22/19 08:38 12/22/19 08:09 12/22/19 08:38 12/22/19 08:10 Oxygen Flow Rate (L/min) 2 Oxygen Delivery Method Room Air Weight: 76.4 kg Body Mass Index (BMI) 23.0 Finger Stick Blood Glucose 135 Intake and Output for Last 24 Hours 12/20/19 12/21/19 12/22/19 23:59 23:59 23:59 Intake Total 5630.0 / 5750.0 4189.17 / 4189.17 995.00 / 995.00 Output Total 800 / 900 800 / 800 300 / 300 Balance 4830.0 / 4850.0 3389.17 / 3389.17 695.00 / 695.00 Labs (Last 48 Hours) 12/19/19 12/21/19 12/21/19 16:15 00:13 05:55 WBC 9.0 RBC 2.88 L Hgb 8.2 L Hct 26.2 L MCV 91.0 MCH 28.5 MCHC 31.3 L RDW Std Deviation 46.9 H RDW Coeff of Alvarado 14.6 Plt Count 181 MPV 10.2 Immature Gran % (Auto) 0.800 Neut % (Auto) 76.6 H Lymph % (Auto) 9.6 L [place] % (Auto) 11.6 H Eos % (Auto) 1.1 Baso % (Auto) 0.3 Absolute Neuts (auto) 6.9 Absolute Lymphs (auto) 0.86 Nucleated RBC % 0 Differential Comment SCANNED Diff Path Review Reviewed Platelet Estimate ADEQUATE Polychromasia RARE Anisocytosis 1+ Macrocytosis RARE Sodium Potassium Chloride Carbon Dioxide Anion Gap BUN Creatinine Estim Creat Clear Calc Est GFR (MDRD) Af Amer Est GFR (MDRD) Non-Af BUN/Creatinine Ratio Glucose Calcium Phosphorus Magnesium Total Creatine Kinase POC Glucose 155 H 12/21/19 12/22/19 12/22/19 05:55 05:55 05:55 WBC 11.6 H RBC 3.20 L Hgb 9.0 L Hct 27.9 L MCV 87.2 MCH 28.1 MCHC 32.3 RDW Std Deviation 46.2 H RDW Coeff of Alvarado 15.1 H Plt Count 209 MPV 10.6 Immature Gran % (Auto) 3.300 H Neut % (Auto) 75.6 H Lymph % (Auto) 6.8 L [place] % (Auto) 13.7 H Eos % (Auto) 0.3 Baso % (Auto) 0.3 Absolute Neuts (auto) 8.7 H Absolute Lymphs (auto) 0.78 L Nucleated RBC % 0.4 Differential Comment Diff Path Review May foll Platelet Estimate Polychromasia Anisocytosis Macrocytosis Sodium 142 140 Potassium 3.8 3.3 L Chloride 114 H 110 H Carbon Dioxide 22.0 23.0 Anion Gap 6 7 BUN 53 H 33 H Creatinine 1.78 H 1.01 Estim Creat Clear Calc 25.74 45.36 Est GFR (MDRD) Af Amer 36 L 68 Est GFR (MDRD) Non-Af 29 L 56 L BUN/Creatinine Ratio 29.8 H 32.7 H Glucose 119 H 154 H Calcium 8.5 8.6 Phosphorus 2.0 L Magnesium 2.8 H Total Creatine Kinase 1425 H POC Glucose Medical Necessity - Tobacco Use Smoking Status: Never smoker Tobacco Use: Non-smoker Assessment/Plan All Active Problems YRIS (acute kidney injury) (Acute) Rhabdomyolysis (Acute) RECOMMENDATIONS: 1. Continue to hold all narcotics 2. OK to discontinue aggressive fluid resuscitation from my perspective 3. Titrate up antihypertensive medications 4. Hemodynamically stable on room air. Will sign off from a critical care perspective IMPRESSIONS: 1. Acute hypoxic respiratory failure secondary to probable retained narcotics Patient appears to be at baseline from a respiratory status. Patient did not require supplemental oxygen overnight. Continue to encourage incentive spirometer and out of bed as tolerated. Likely no indication for outpatient pulmonary function testing. 2. Acute kidney injury secondary to rhabdomyolysis Patient has had good response to aggressive hydration and renal flushing. Likely okay to discontinue high-dose IV fluids. Patient appears to be responding well to therapy. Renal function is approaching normal. 3. Acute toxic encephalopathy Clinical suspicion for retained opiates leading to change in mental status. Patient will be followed clinically. Continue with delirium protocol. Unclear if patient has an element of baseline dementia at this time. Patient is awake and interactive, so morphine metabolites are likely gone. 4. Chronic diastolic congestive heart failure Previous echocardiogram showed preserved ejection fraction with elevated pulmonary artery pressures. Patient appears to be doing well at this time. Will transition to oral hydration. 5. Chronic pain syndrome/advanced age/hypertensive urgency Complicates care, management, recovery and prognosis. Elevated blood pressures likely secondary to holding of baseline medications. Continue rate control. Reinitiate other blood pressure medications in a stepwise fashion. Code Visit Inpatient E&M: 78245 Subs Hosp L2
--- NOTE | 2019-12-22 09:41 | PN_ITS ---
Patient Problems: Active and Suspected Problems YRIS (acute kidney injury) (Acute) Rhabdomyolysis (Acute) Subjective: Chief complaint: Follow-up after admission for acute renal failure, rhabdomyolysis and acute metabolic encephalopathy as well as acute on chronic anemia. Patient seen and examined. No acute events overnight. Today, she is feeling better, muscle pain is improving. She does not think that she is confused today. She is oriented x2, disoriented only to time And date. She has been afebrile, tachycardic, blood pressure slightly better, pulse ox is 96% on room air. - Physical Exam Vitals/I&O's: Vital Signs Temp Pulse Resp BP Pulse Ox 99.3 F H 115 H 16 150/107 H 96 12/22/19 08:09 12/22/19 08:38 12/22/19 08:09 12/22/19 08:38 12/22/19 08:10 Oxygen Flow Rate (L/min) 2 Oxygen Delivery Method Room Air Weight: 168 lb 6.931 oz Body Mass Index (BMI) 23.0 Finger Stick Blood Glucose 135 Intake and Output for Last 24 Hours 12/20/19 12/21/19 12/22/19 23:59 23:59 23:59 Intake Total 5630.0 / 5750.0 4189.17 / 4189.17 995.00 / 995.00 Output Total 800 / 900 800 / 800 300 / 300 Balance 4830.0 / 4850.0 3389.17 / 3389.17 695.00 / 695.00 General: Alert, Cooperative, No apparent distress, - - Oriented x2. HEENT: Atraumatic, PERRLA, EOMI, Normocephalic Oral: Moist Mucosa, No Gingival or Mucosal Lesions/ Ulcerations Neck: Supple, No JVD, Negative Carotid Bruits, Trachea Midline, Thyroid Normal Size and Texture Lungs: Clear to auscultation, Normal air movement, No rhonchi, No wheeze, No rales, Diminished Cardiovascular: Regular rate, Regular Rhythm, Normal S1, Normal S2, PMI Normal, Tachycardic Abdomen: Bowel Sounds Present, Soft, Non Tender, Non-Distended, No Hepato- splenomegaly Extremities: No clubbing, No cyanosis, No edema Skin: No rashes, No breakdown Lymphatic: No Cervical, Supraclavicular, or Inguinal Adenopathy Neurological: Cranial nerves II-XII grossly intact, Motor Exam 5/5 strength throughout Psych/Mental Status: Normal Affect, Appropriate Microbiology Past 72 Hours 12/19/19 16:25 Stool Stool Occult Blood (BRENDA) - Final Occult Blood Positive Laboratory Results 12/22/19 05:55: WBC 11.6 H, RBC 3.20 L, Hgb 9.0 L, Hct 27.9 L, MCV 87.2, MCH 28.1, MCHC 32.3, RDW Std Deviation 46.2 H, RDW Coeff of Alvarado 15.1 H, Plt Count 209, MPV 10.6, Immature Gran % (Auto) 3.300 H, Neut % (Auto) 75.6 H, Lymph % (Auto) 6.8 L, [place] % (Auto) 13.7 H, Eos % (Auto) 0.3, Baso % (Auto) 0.3, Absolute Neuts (auto) 8.7 H, Absolute Lymphs (auto) 0.78 L, Nucleated RBC % 0.4, Diff Path Review March12/22/19 05:55: Sodium 140, Potassium 3.3 L, Chloride 110 H, Carbon Dioxide 23.0, Anion Gap 7, BUN 33 H, Creatinine 1.01, Estim Creat Clear Calc 45.36, Est GFR (MDRD) Af Amer 68, Est GFR (MDRD) Non-Af 56 L, BUN/Creatinine Ratio 32.7 H, Glucose 154 H, Calcium 8.6 Current Medications Duloxetine HCl (Cymbalta) 60 mg PO DAILY [facility] Gabapentin (Neurontin) 200 mg PO TID [facility] Hydralazine HCl (Apresoline Iv) 10 mg IV Q8H PRN PRN PRN Reason: for SBP>160 Last Admin: 12/21/19 14:46 Dose: 10 mg Documented by: Hydrochlorothiazide () 12.5 mg PO DAILY [facility] Last Admin: 12/22/19 08:38 Dose: 12.5 mg Documented by: Hydrocortisone (Hytone) 1 applic TOPICAL BID PRN PRN; Protocol PRN Reason: APPLY TO RECTAL AREAD Last Admin: 12/22/19 01:15 Dose: 1 applicatio Documented by: Hydrocortisone Acetate (Anusol Hc) 25 mg RECTAL BID [facility] Last Admin: 12/22/19 08:34 Dose: Not Given Documented by: Sodium Chloride () 1,000 mls @ 0 mls/hr IV .Q10H [facility] Last Admin: 12/22/19 08:12 Dose: 100 mls/hr Documented by: Lisinopril (Zestril) 20 mg PO DAILY [facility] Last Admin: 12/22/19 08:39 Dose: 20 mg Documented by: Lorazepam (Ativan) 0.5 mg PO Q8H PRN PRN PRN Reason: ANXIETY/AGITATION Metoprolol Tartrate (Lopressor (Beta Preston)) 50 mg PO BID [facility] Nutritional Formula (Lactose Free) (Ensure Enlive) 120 ml PO 4X/DAY [facility] Last Admin: 12/22/19 08:38 Dose: 120 ml Documented by: Ondansetron HCl (Zofran) 4 mg IV Q6H PRN PRN PRN Reason: NAUSEA/VOMITING Last Admin: 12/19/19 21:22 Dose: 4 mg Documented by: Pantoprazole Sodium (Protonix) 40 mg PO DAILY [facility] Last Admin: 12/22/19 08:39 Dose: 40 mg Documented by: Pol[facility]accharide [facility] ([facility]rex 150[facility] Admin: 12/22/19 08:37 Dose: 150 mg Documented by: Sodium Chloride () 10 - 40 ml IV UD PRN PRN Reason: SALINE FLUSH Last Admin: 12/21/19 14:45 Dose: 10 ml Documented by: Tizanidine HCl (Zanaflex) 2 mg PO TID [facility] Trazodone HCl (Desyrel) 100 mg PO QHS [facility] Medical Necessity - Tobacco Use Smoking Status: Never smoker Tobacco Use: Non-smoker Assessment/Plan All Active Problems YRIS (acute kidney injury) (Acute) Rhabdomyolysis (Acute) This is a 79 years old female patient presented to the emergency room because she was found on the floor confused and reportedly, she took morphine tablets and she was found to have acute renal failure secondary to rhabdomyolysis, acute metabolic encephalopathy which is attributed to morphine and also found to have acute on chronic anemia. #1 acute renal failure: Secondary to rhabdomyolysis and being on the floor for unknown time. Her kidney function is almost back to normal. BUN is 33, creatinine is 1.01. She has satisfactory urine output. She is afebrile, tachycardic, blood pressure is elevated, pulse ox is 96% on room air. She is tolerating diet. Plan to encourage oral intake, resume home medications as below, PT OT evaluation, case management consult for discharge planning. Patient may need placement to assisted facility. #2 rhabdomyolysis: CPK down to 1425 with IV fluids. As mentioned above, patient was on the floor for unknown time. Muscle pains and aches are improving. Plan for PT OT as above. #3 hypokalemia/hypomagnesemia: Potassium today is 3.3, still low. Serum magnesium was normal. Plan for K. Dur 60 mEq p.o. x1 today. #4 acute metabolic encephalopathy: Attributed to morphine, improving. She has been oriented x2, disoriented to time. She has been forgetful. #5 acute on chronic anemia: Baseline hemoglobin has been around 8 g/dL. It is normocytic anemia. Stool is positive for occult blood. Hemoglobin dropped down to 7.1 g/dL. No blood transfusion given. Today's hemoglobin is 9 g/dL, [facility]. #6 hypertension: Blood pressure is elevated, tachycardic. She is on lisinopril and HCTZ as well as metoprolol. She is on IV adenosine PRN. #7 chronic pain syndrome: Narcotics on hold due to altered mental status. #8 anxiety/depression: Resume duloxetine and Ativan as needed as well as trazodone. #9 DVT prophylaxis: Start subcu heparin. This note was generated with [employer] dictation software. It may contain incorrect words, spelling, and punctuation that were not noted in checking the note before signing. Code Visit Inpatient E&M: 89590 Subs Hosp L2
[2019-12-22] MEDS: LORazepam 0.5 MG Tablet PO (10:54)
[2019-12-22] MEDS: Magnesium Hydroxide 30 ML UDC PO (10:54)
[2019-12-22] MEDS: DULoxetine Hcl 60 MG Capsule PO (12:43)
[2019-12-22] MEDS: Gabapentin 100 MG Capsule 200 MG PO ×2 (15:55→21:06)
[2019-12-22] MEDS: tiZANidine HCl 2 MG Tablet PO ×2 (15:55→21:06)
[2019-12-22] MEDS: 0.9% Saline Lock 10 ML Syringe IV ×2 (15:56→19:13)
[2019-12-22] MEDS: Heparin Injection (Vial) 5,000 UNIT/ML VIAL 5000 UNIT SC (21:05)
[2019-12-22] MEDS: Metoprolol Tartrate 50 MG Tablet PO (21:06)
[2019-12-22] MEDS: traZODone 100 MG Tablet PO (21:06)
[2019-12-22] MEDS: 0.9% Normal Saline 1,000 ML 15 ML IV (21:15)
[2019-12-23] VITALS (10 sets, daily range): BP systolic 136–149; BP diastolic 90–98; PULSE 91–117; RESP 16–18; TEMP 36.7–37.2; O2SAT 94–97
[2019-12-23] MEDS: Gabapentin 100 MG Capsule 200 MG PO ×2 (05:27→15:25)
[2019-12-23] MEDS: tiZANidine HCl 2 MG Tablet PO ×2 (05:28→15:25)
[2019-12-23] MEDS: Hydrocortisone 25 MG Suppository RECTAL (08:46)
[2019-12-23] MEDS: Iron Polysaccharide Complex 150 MG CAPSULE PO (08:47)
[2019-12-23] MEDS: hydroCHLOROthiazide 12.5mg 12.5 MG PO (08:48)
[2019-12-23] MEDS: Pantoprazole Sodium 40 MG Tablet PO (08:48)
[2019-12-23] MEDS: Lisinopril 20 MG Tablet PO (08:48)
[2019-12-23] MEDS: DULoxetine Hcl 60 MG Capsule PO (08:49)
[2019-12-23] MEDS: Metoprolol Tartrate 50 MG Tablet PO (08:49)
[2019-12-23] MEDS: Magnesium Hydroxide 30 ML UDC PO (08:50)
[2019-12-23] MEDS: Heparin Injection (Vial) 5,000 UNIT/ML VIAL 5000 UNIT SC (08:50)
--- NOTE | 2019-12-23 11:29 | CASEMGMT ---
ANTHONY spoke with patient and Autumn in TCU and there is a bed available. Patient is agreeable to go to TCU pending insurance approval. ANTHONY offered to call patient's daughters and she declined. Plan: d/c to TCU pending insurance approval. Celeste LAMA MSW
[2019-12-23 12:26] LABS: Pathologist Review Reviewed
--- NOTE | 2019-12-23 13:39 | PCM.PN.HOSP ---
Patient Problems: Active and Suspected Problems YRIS (acute kidney injury) (Acute) Rhabdomyolysis (Acute) Reason for Visit: Confusion Subjective: Pt resting comfortably in bed no acute distress. No shortness of breath. No body aches or pains. She is ANO x3 no longer appears confused. No lightheadedness or dizziness. No chest pain. Patient is agreeable to half-way placement. Vitals/I&O's: Vital Signs Temp Pulse Resp BP Pulse Ox 98.5 F 104 H 17 136/90 H 95 12/23/19 08:45 12/23/19 11:06 12/23/19 08:45 12/23/19 08:45 12/23/19 08:45 Oxygen Flow Rate (L/min) 2 Oxygen Delivery Method Room Air Weight: 160 lb 0.889 oz Body Mass Index (BMI) 23.0 Finger Stick Blood Glucose 135 Intake and Output for Last 24 Hours 12/21/19 12/22/19 12/23/19 23:59 23:59 23:59 Intake Total 4189.17 / 4189.17 2886.00 / 2886.00 900 / 900 Output Total 800 / 800 1100 / 1100 150 / 150 Balance 3389.17 / 3389.17 1786.00 / 1786.00 750 / 750 General: Alert, Oriented x3, Cooperative HEENT: Atraumatic, PERRLA, EOMI, Normocephalic Neck: Supple, No JVD, Negative Carotid Bruits Lungs: Clear to auscultation, Normal air movement Cardiovascular: Regular rate, No murmurs Abdomen: Bowel Sounds Present, Soft, Non Tender Extremities: No edema, Capillary Refill Less than 3 Seconds Skin: No rashes, No breakdown Musculoskeletal: No Tenderness to Palpation of Joints or Extremities Neurological: Cranial nerves II-XII grossly intact Psych/Mental Status: Normal Affect, Appropriate, Alert and oriented to time, place, person, mood and affect Laboratory Results 12/22/19 05:55: Diff Path Review Reviewed Current Medications Duloxetine HCl (Cymbalta) 60 mg PO DAILY [facility] Last Admin: 12/23/19 08:49 Dose: 60 mg Documented by: Gabapentin (Neurontin) 200 mg PO TID [facility] Last Admin: 12/23/19 05:27 Dose: 200 mg Documented by: Heparin Sodium (Porcine) (Heparin Na) 5,000 unit SC Q12 [facility] Last Admin: 12/23/19 08:50 Dose: 5,000 unit Documented by: Hydralazine HCl (Apresoline Iv) 10 mg IV Q8H PRN PRN PRN Reason: for SBP>160 Last Admin: 12/21/19 14:46 Dose: 10 mg Documented by: Hydrochlorothiazide () 12.5 mg PO DAILY [facility] Last Admin: 12/23/19 08:48 Dose: 12.5 mg Documented by: Hydrocortisone (Hytone) 1 applic TOPICAL BID PRN PRN; Protocol PRN Reason: APPLY TO RECTAL AREAD Last Admin: 12/22/19 11:11 Dose: 1 applicatio Documented by: Hydrocortisone Acetate (Anusol Hc) 25 mg RECTAL BID [facility] Last Admin: 12/23/19 08:46 Dose: 25 mg Documented by: Sodium Chloride () 1,000 mls @ 0 mls/hr IV .Q10H [facility] Last Infusion: 12/22/19 23:59 Dose: 15 mls/hr Documented by: Lisinopril (Zestril) 20 mg PO DAILY [facility] Last Admin: 12/23/19 08:48 Dose: 20 mg Documented by: Lorazepam (Ativan) 0.5 mg PO Q8H PRN PRN PRN Reason: ANXIETY/AGITATION Last Admin: 12/22/19 10:54 Dose: 0.5 mg Documented by: Magnesium Hydroxide (Milk Of Magnesia) 30 ml PO DAILY [facility] Last Admin: 12/23/19 08:50 Dose: 30 ml Documented by: Metoprolol Tartrate (Lopressor (Beta Preston)) 50 mg PO BID [facility] Last Admin: 12/23/19 08:49 Dose: 50 mg Documented by: Nutritional Formula (Lactose Free) (Ensure Enlive) 120 ml PO 4X/DAY [facility] Last Admin: 12/23/19 08:46 Dose: Not Given Documented by: Ondansetron HCl (Zofran) 4 mg IV Q6H PRN PRN PRN Reason: NAUSEA/VOMITING Last Admin: 12/19/19 21:22 Dose: 4 mg Documented by: Pantoprazole Sodium (Protonix) 40 mg PO DAILY [facility] Last Admin: 12/23/19 08:48 Dose: 40 mg Documented by: Polysaccharide Iron Complex ([facility]rex 150) [address] [facility] Last Admin: 12/23/19 08:47 Dose: 150 mg Documented by: Simethicone (Mylicon) 80 mg PO TIDPC PRN PRN Reason: Gas Last Admin: 12/22/19 18:59 Dose: 80 mg Documented by: Sodium Chloride () 10 - 40 ml IV UD PRN PRN Reason: SALINE FLUSH Last Admin: 12/22/19 19:13 Dose: 10 ml Documented by: Tizanidine HCl (Zanaflex) 2 mg PO TID [facility] Last Admin: 12/23/19 05:28 Dose: 2 mg Documented by: Trazodone HCl (Desyrel) 100 mg PO QHS [facility] Last Admin: 12/22/19 21:06 Dose: 100 mg Documented by: STROKE Vital Signs/Narrative: Vital Signs Pulse 12/23/19 11:06 104 H Medical Necessity - Tobacco Use Smoking Status: Never smoker Tobacco Use: Non-smoker Assessment/Plan All Active Problems YRIS (acute kidney injury) (Acute) Rhabdomyolysis (Acute) 1. YRIS, rhabdo - 2/2 laid on floor unclear amount of time. Held fredrick/hctz and celebrex. Resolved. 2. Acute toxic vs metabolic encephalpathy - likely 2/2 morphine use at home. Resolved. 3. Acute on chronic chronic blood loss anemia secondary to GI bleed- black stools, + hemoccult blood. This is improved without blood transfusion. Avoid blood thinning agents. Refer to general surgery as an outpatient. Continue Protonix. She should not resume any NSAIDs. 4. Chronic pain syndrome -she is stable back on gabapentin. 5. Hypertension-stable 6. Anxiety depression-continue duloxetine, Ativan, trazodone DVT ppx: SCDs DC planning: alf This patient was seen by Alfonzo Merino PA-C under the supervision of Dr. Matthews
--- NOTE | 2019-12-23 15:11 | TREXTCA.CO_ITS ---
- Diet 12/19/19 18:51 Diet: Regular Diet Food consistency:: Regular Liquid Consistency:: Regular/Thin Type of Dietary Supplement:: [place] Breakfast Is pt able to select menu?: Yes - Routine Orders/Code Status Suppository Type: Dulcolax 10mg Suppository Frequency: Daily PRN Routine Lab Work: CBC - 5 days, BMP - 5 days - Therapies Physical Therapy: Eval and Treat Occupational Therapy: Eval and Treat - Problem/Diagnosis (1) YRIS (acute kidney injury) Status: Acute Current Visit: Yes (2) Rhabdomyolysis Status: Acute Current Visit: Yes (3) Chronic pain disorder Status: Chronic Current Visit: No (4) Hypertension Status: Chronic Current Visit: No (5) Anxiety and depression Status: Chronic Current Visit: No (6) Right foot drop Status: Chronic Current Visit: No (7) Chronic anemia Status: Chronic Current Visit: No - Allergies/Procedures Done in Hospital Allergies/Adverse Reactions: Allergies No Known Allergies Allergy (Verified 12/19/19 16:26) - Type of Care/Length of Stay Estimated LOS: Convalescent Care Less Than 30 days Type of Care Needed: Skilled Rehab Potential: Fair Prognosis: Fair - Additional Orders/Day of Discharge Day of Discharge: 12/23/19 - Dietary and Speech Recommendations Dietitian Recommendations/Changes: Rec continue Regular diet w/ ONS at meals and medpass. - Follow Up Care Primary Care Physician: Erick Christensen III, MD [Primary Care Provider] - Please follow up with your Primary Care Physician in: 1-2 weeks
--- NOTE | 2019-12-23 15:14 | DS.PCM_ITS ---
<Alfonzo Merino - Last Filed: 12/23/19 15:14> Discharge Date and Diagnosis - Problem List Patient Problems: Active and Suspected Problems YRIS (acute kidney injury) (Acute) Rhabdomyolysis (Acute) Date of Admission: 12/19/19 Date of Discharge: 12/23/19 - Primary Discharge Diagnosis Active and Suspected Problems YRIS (acute kidney injury) (Acute) Rhabdomyolysis (Acute) Acute toxic encephalopathy secondary to opiates Acute on chronic blood loss anemia Chronic pain syndrome Chronic right foot drop Anxiety depression HTN Chronic diastolic CHF - Secondary Discharge Diagnosis Chronic Problems Chronic pain disorder (Chronic) Hypertension (Chronic) Anxiety and depression (Chronic) Right foot drop (Chronic) Chronic anemia (Chronic) Hyponatremia (Chronic) Hospital Course and Treatment Imaging Results: IMAGING: CT/Brain/Head without Contrast IMPRESSION: 1. Normal CT brain. RAD/HIP, UNI W/ Pelvis 2-3 Views IMPRESSION: Right hip replacement. Demineralization. No acute fracture. RAD/Chest 1 View (Portable) IMPRESSION: 1. Low inspiratory volume radiograph, presumably retrocardiac atelectasis. 2. Recommend repeat frontal and lateral radiography after patient''s condition improves for more definitive assessment. Consults: Donald - Pulmonology Operations: None Procedures: None Summary of Care Provided: Hospital Course: The patient is a 79 year old F hypertension, diastolic congestive heart failure, chronic pain syndrome, or chronic right foot drop, who presented the emergency room with altered mental status. She was found down on cameras in her house by her daughters. She had been there for an unclear amount of time. She was confused and hallucinating. She had soiled herself with black stools. Family noted that she gets confused like that when she takes morphine. She previously was prescribed morphine ER for chronic pain however she had been taken off of it. The patient admitted that she had some of the old medication in her house and that she had taken some. In the ER she appeared to have acute kidney injury and rhabdomyolysis, along with toxic encephalopathy. She was admitted and given IV fluids, psychotropic agents were held. She did develop some respiratory failure the night of admission and received Narcan. Pulmonary medicine was consulted and agreed that she probably had respiratory failure secondary to retained narcotics. Respiratory status was improved with the following day. Her mental status resolved over the next several days. She did remain significantly weak and mcc was recommended. Patient was agreeable. She was discharged to [facility] in stable condition. She will need to remain off of any opiate products. She is currently tolerating Cymbalta, Neurontin, Ativan, Zanaflex, and trazodone. She will need follow-up with her PCP in 1 to 2 weeks. Regarding her black stools she did have Hemoccult positive stools. Her hemoglobin at its lowest was 7.1 however it recovered to 9 without any transfusions. She is on a PPI. She was taken off of an NSAID at admission. She should not resume this. I have recommended that she follow-up with general surgery in 2 weeks as an outpatient to evaluate for further need for further endoscopy. This patient was seen by Alfonzo Merino PA-C under the supervision of Doctor Matthews. [] Patient Problems: Active and Suspected Problems YRIS (acute kidney injury) (Acute) Rhabdomyolysis (Acute) - Physical Exam Vitals/I&O's: Vital Signs Temp Pulse Resp BP Pulse Ox 98.5 F 104 H 17 136/90 H 95 12/23/19 08:45 12/23/19 11:06 12/23/19 08:45 12/23/19 08:45 12/23/19 08:45 Oxygen Flow Rate (L/min) 2 Oxygen Delivery Method Room Air Weight: 160 lb 0.889 oz Body Mass Index (BMI) 23.0 Finger Stick Blood Glucose 135 Intake and Output for Last 24 Hours 12/21/19 12/22/19 12/23/19 23:59 23:59 23:59 Intake Total 4189.17 / 4189.17 2886.00 / 2886.00 900 / 900 Output Total 800 / 800 1100 / 1100 150 / 150 Balance 3389.17 / 3389.17 1786.00 / 1786.00 750 / 750 General: Alert, Oriented x3, Cooperative HEENT: Atraumatic, PERRLA, EOMI, Normocephalic Neck: Supple, No JVD, Negative Carotid Bruits Lungs: Clear to auscultation, Normal air movement Cardiovascular: Regular rate, No murmurs Abdomen: Bowel Sounds Present, Soft, Non Tender Extremities: No edema, Capillary Refill Less than 3 Seconds Skin: No rashes, No breakdown Musculoskeletal: No Tenderness to Palpation of Joints or Extremities Neurological: Cranial nerves II-XII grossly intact Psych/Mental Status: Normal Affect, Appropriate, Alert and oriented to time, place, person, mood and affect Laboratory Results 12/22/19 05:55: Diff Path Review Reviewed Current Medications Duloxetine HCl (Cymbalta) 60 mg PO DAILY [facility] Last Admin: 12/23/19 08:49 Dose: 60 mg Documented by: Gabapentin (Neurontin) 200 mg PO TID [facility] Last Admin: 12/23/19 05:27 Dose: 200 mg Documented by: Heparin Sodium (Porcine) (Heparin Na) 5,000 unit SC Q12 [facility] Last Admin: 12/23/19 08:50 Dose: 5,000 unit Documented by: Hydralazine HCl (Apresoline Iv) 10 mg IV Q8H PRN PRN PRN Reason: for SBP>160 Last Admin: 12/21/19 14:46 Dose: 10 mg Documented by: Hydrochlorothiazide () 12.5 mg PO DAILY [facility] Last Admin: 12/23/19 08:48 Dose: 12.5 mg Documented by: Hydrocortisone (Hytone) 1 applic TOPICAL BID PRN PRN; Protocol PRN Reason: APPLY TO RECTAL AREAD Last Admin: 12/22/19 11:11 Dose: 1 applicatio Documented by: Hydrocortisone Acetate (Anusol Hc) 25 mg RECTAL BID [facility] Last Admin: 12/23/19 08:46 Dose: 25 mg Documented by: Sodium Chloride () 1,000 mls @ 0 mls/hr IV .Q10H [facility] Last Infusion: 12/22/19 23:59 Dose: 15 mls/hr Documented by: Lisinopril (Zestril) 20 mg PO DAILY [facility] Last Admin: 12/23/19 08:48 Dose: 20 mg Documented by: Lorazepam (Ativan) 0.5 mg PO Q8H PRN PRN PRN Reason: ANXIETY/AGITATION Last Admin: 12/22/19 10:54 Dose: 0.5 mg Documented by: Magnesium Hydroxide (Milk Of Magnesia) 30 ml PO DAILY [facility] Last Admin: 12/23/19 08:50 Dose: 30 ml Documented by: Metoprolol Tartrate (Lopressor (Beta Preston)) 50 mg PO BID [facility] Last Admin: 12/23/19 08:49 Dose: 50 mg Documented by: Nutritional Formula (Lactose Free) (Ensure Enlive) 120 ml PO 4X/DAY [facility] Last Admin: 12/23/19 08:46 Dose: Not Given Documented by: Ondansetron HCl (Zofran) 4 mg IV Q6H PRN PRN PRN Reason: NAUSEA/VOMITING Last Admin: 12/19/19 21:22 Dose: 4 mg Documented by: Pantoprazole Sodium (Protonix) 40 mg PO DAILY [facility] Last Admin: 12/23/19 08:48 Dose: 40 mg Documented by: [facility] Admin: 12/23/19 08:47 Dose: 150 mg Documented by: Simethicone (Mylicon) 80 mg PO TIDPC PRN PRN Reason: Gas Last Admin: 12/22/19 18:59 Dose: 80 mg Documented by: Sodium Chloride () 10 - 40 ml IV UD PRN PRN Reason: SALINE FLUSH Last Admin: 12/22/19 19:13 Dose: 10 ml Documented by: Tizanidine HCl (Zanaflex) 2 mg PO TID [facility] Last Admin: 12/23/19 05:28 Dose: 2 mg Documented by: Trazodone HCl (Desyrel) 100 mg PO QHS [facility] Last Admin: 12/22/19 21:06 Dose: 100 mg Documented by: Discharge Diet: Low fat/ Low Cholesterol, 2000 mg Sodium Diet Discharge Activity: Return to Normal Activity Home Medications: Medications to take at Discharge Duloxetine HCl 60 mg PO DAILY 11/23/18 Gabapentin [Neurontin] 200 mg PO TID 11/23/18 Tizanidine HCl 2 mg PO TID 11/23/18 traZODone [Desyrel] 100 mg PO QHS PRN PRN 11/23/18 Lisinopril/Hydrochlorothiazide [Lisinopril-Hctz 20-12.5 mg Tab] 2 tab PO DAILY 12/19/19 Hydrocortisone 2.5% Crm [Hytone] 1 applic TOPICAL BID PRN PRN tube 12/23/19 Hydrocortisone [Anusol Hc] 25 mg RECTAL BID suppos. 12/23/19 Iron Polysaccharide Complex [Ferrex 150] 150 mg PO DAILYCM cap 12/23/19 Lorazepam [Ativan] 0.5 mg PO Q8H PRN PRN 3 Days #9 tab 12/23/19 Magnesium Hydroxide [Milk Of Magnesia] 30 ml PO DAILY [facility] 12/23/19 Metoprolol Tartrate [Lopressor (beta preston)] 50 mg PO BID tab 12/23/19 Pantoprazole Sodium [Protonix] 40 mg PO DAILY tab 12/23/19 SimETHICONE [Mylicon] 80 mg PO TIDPC PRN tab 12/23/19 Following Prescrptions Were Given to Patient: Lorazepam [Ativan] 0.5 mg PO Q8H PRN PRN 3 Days #9 tab PRN Reason: Anxiety/Agitation Prescription Printed Primary Care Physician: Erick Christensen III, MD [Primary Care Provider] - Please follow up with your Primary Care Physician in: 1-2 weeks Please Follow Up With: Evan Parson MD When: 2 weeks Disposition: Custodial facility Minutes spent on discharge:: 35 Patient Condition:: Stable Medical Necessity - Tobacco Use Smoking Status: Never smoker Tobacco Use: Non-smoker Meaningful Use Info Meaningful Use Diagnoses (Choose all that apply): None applicable <Gal Matthews - Last Filed: 12/23/19 15:40> Discharge Date and Diagnosis - Primary Discharge Diagnosis Active and Suspected Problems YRIS (acute kidney injury) (Acute) Rhabdomyolysis (Acute) - Secondary Discharge Diagnosis Chronic Problems Chronic pain disorder (Chronic) Hypertension (Chronic) Anxiety and depression (Chronic) Right foot drop (Chronic) Chronic anemia (Chronic) Hyponatremia (Chronic) Hospital Course and Treatment Summary of Care Provided: This patient was seen in conjunction with Alfonzo Merino PA-C . I have independently interviewed and examined the patient and reviewed pertinent historical, laboratory, and other data. Please refer to Alfonzo Merino PA-C note for details of this patient's presentation, findings, and recommendations. I have reviewed Alfonzo Merino PA-C note and concur with documented findings. In brief, patient is a 79-year-old lady with multiple comorbidities including hypertension, diastolic congestive heart failure chronic pain syndrome brought to the emergency department with altered mental status. Patient was found to have acute rhabdomyolysis. Admitted to monitored bed for subsequent management. Hospital course: As documented above by Alfonzo Merino PA-C. - Physical Exam Vitals/I&O's: Vital Signs Temp Pulse Resp BP Pulse Ox 98.9 F 108 H 16 139/93 H 94 12/23/19 15:15 12/23/19 15:15 12/23/19 15:15 12/23/19 15:15 12/23/19 15:15 Oxygen Flow Rate (L/min) 2 Oxygen Delivery Method Room Air Weight: 72.6 kg Body Mass Index (BMI) 23.0 Finger Stick Blood Glucose 135 Intake and Output for Last 24 Hours 12/21/19 12/22/19 12/23/19 23:59 23:59 23:59 Intake Total 4189.17 / 4189.17 2886.00 / 2886.00 900 / 900 Output Total 800 / 800 1100 / 1100 150 / 150 Balance 3389.17 / 3389.17 1786.00 / 1786.00 750 / 750 Laboratory Results 12/22/19 05:55: Diff Path Review Reviewed Current Medications Duloxetine HCl (Cymbalta) 60 mg PO DAILY [facility] Last Admin: 12/23/19 08:49 Dose: 60 mg Documented by: Gabapentin (Neurontin) 200 mg PO TID [facility] Last Admin: 12/23/19 15:25 Dose: 200 mg Documented by: Heparin Sodium (Porcine) (Heparin Na) 5,000 unit SC Q12 [facility] Last Admin: 12/23/19 08:50 Dose: 5,000 unit Documented by: Hydralazine HCl (Apresoline Iv) 10 mg IV Q8H PRN PRN PRN Reason: for SBP>160 Last Admin: 12/21/19 14:46 Dose: 10 mg Documented by: Hydrochlorothiazide () 12.5 mg PO DAILY [facility] Last Admin: 12/23/19 08:48 Dose: 12.5 mg Documented by: Hydrocortisone (Hytone) 1 applic TOPICAL BID PRN PRN; Protocol PRN Reason: APPLY TO RECTAL AREAD Last Admin: 12/22/19 11:11 Dose: 1 applicatio Documented by: Hydrocortisone Acetate (Anusol Hc) 25 mg RECTAL BID [facility] Last Admin: 12/23/19 08:46 Dose: 25 mg Documented by: Sodium Chloride () 1,000 mls @ 0 mls/hr IV .Q10H [facility] Last Infusion: 12/22/19 23:59 Dose: 15 mls/hr Documented by: Lisinopril (Zestril) 20 mg PO DAILY [facility] Last Admin: 12/23/19 08:48 Dose: 20 mg Documented by: Lorazepam (Ativan) 0.5 mg PO Q8H PRN PRN PRN Reason: ANXIETY/AGITATION Last Admin: 12/22/19 10:54 Dose: 0.5 mg Documented by: Magnesium Hydroxide (Milk Of Magnesia) 30 ml PO DAILY [facility] Last Admin: 12/23/19 08:50 Dose: 30 ml Documented by: Metoprolol Tartrate (Lopressor (Beta Preston)) 50 mg PO BID [facility] Last Admin: 12/23/19 08:49 Dose: 50 mg Documented by: Nutritional Formula (Lactose Free) (Ensure Enlive) 120 ml PO 4X/DAY [facility] Last Admin: 12/23/19 15:25 Dose: Not Given Documented by: Ondansetron HCl (Zofran) 4 mg IV Q6H PRN PRN PRN Reason: NAUSEA/VOMITING Last Admin: 12/19/19 21:22 Dose: 4 mg Documented by: Pantoprazole Sodium (Protonix) 40 mg PO DAILY [facility] Last Admin: 12/23/19 08:48 Dose: 40 mg Documented by: Polysaccharide Iron Complex (Ferrex 150) 150 mg PO DAILYCM [facility] Last Admin: 12/23/19 08:47 Dose: 150 mg Documented by: Simethicone (Mylicon) 80 mg PO TIDPC PRN PRN Reason: Gas Last Admin: 12/22/19 18:59 Dose: 80 mg Documented by: Sodium Chloride () 10 - 40 ml IV UD PRN PRN Reason: SALINE FLUSH Last Admin: 12/22/19 19:13 Dose: 10 ml Documented by: Tizanidine HCl (Zanaflex) 2 mg PO TID [facility] Last Admin: 12/23/19 15:25 Dose: 2 mg Documented by: Trazodone HCl (Desyrel) 100 mg PO QHS [facility] Last Admin: 12/22/19 21:06 Dose: 100 mg Documented by: Code Visit Inpatient E&M: [id number] Disch Hosp
--- NOTE | 2019-12-23 15:40 | CASEMGMT ---
Patient was approved to go to TCU. ANTHONY notified physician. Orders were copied. ANTHONY notified patient she was approved and will go to TCU today. She did not want ANTHONY to call anyone for her. ANTHONY notified RN and paralegal secretary. Plan: d/c to [facility] under skilled level of care. Celeste JACOBO
== END 2019-12-23 17:08 | disposition skilled nursing facility (03) | DRG 682 ==
LOC: ED 16:46 → PCU 18:23 → ICU 12-20 06:53 → PCU 12-21 13:02
PROVIDERS: Hospitalist; Internal Medicine Critical Care Medicine; Admitting Provider Family Medicine; Emergency Provider Emergency Medicine; PCP Family Medicine; Referring Provider Family Medicine; Visit Provider Internal Medicine
DX: N17.9 Acute kidney failure, unspecified (principal); G92 Toxic encephalopathy; J96.01 Acute respiratory failure with hypoxia; I50.32 Chronic diastolic (congestive) heart failure; E87.1 Hypo-osmolality and hyponatremia; D62 Acute posthemorrhagic anemia; K92.1 Melena; T79.6XXA Traumatic ischemia of muscle, initial encounter; I16.0 Hypertensive urgency; T40.2X5A Adverse effect of other opioids, initial encounter; E87.6 Hypokalemia; I11.0 Hypertensive heart disease with heart failure; M21.371 Foot drop, right foot; G89.4 Chronic pain syndrome; W19.XXXA Unspecified fall, initial encounter; F41.9 Anxiety disorder, unspecified; F32.9 Major depressive disorder, single episode, unspecified
CPT/HCPCS: 36415; 36600; 70450; 71045; 73502; 80048; 80053; 80307; 81001; 82274; 82550; 82803; 82962; 83605; 83735; 83880; 84100; 84484; 85025; 85379; 93005; 97116; 97163; 97166; 97530; 97535; 97802; 99251; 99284; J7030; J7040; J7050; A4216; G0463; J2310; J2405

== ENCOUNTER 2019-12-23 17:13 | Inpatient (IN) | payer MEDICARE, SELFPAY ==
[2019-12-19 18:58] VITALS: BMI 23.0
[2019-12-23 17:52] VITALS: BP 131/94; PULSE 113; RESP 18; TEMP 37.4; O2SAT 95; BMI 24.8
--- NOTE | 2019-12-23 18:09 | RAD_ITS ---
STUDY: X-RAY CHEST REASON FOR EXAM: Female, 79 years old. SOB TECHNIQUE: PA and lateral views of the chest. COMPARISON: 12/19/2019 FINDINGS: The lungs are hyperexpanded with chronic interstitial changes. No superimposed acute pulmonary process. There is no demonstrated pleural abnormality. Normal size heart. Normal mediastinum and patricia. Normal visualized pulmonary arteries. There is atherosclerotic calcification of the aortic arch with tortuosity. Stable scoliosis. There is degenerative osteoarthritis of the bilateral shoulders. There is no demonstrated abnormality of the visualized soft tissue structures of the upper abdomen. RAD/Chest PA and Lateral IMPRESSION: Hyperexpanded lungs with chronic interstitial changes, no superimposed acute pulmonary process, or significant interval change Electronically Signed: Jovi Carrion MD at 18:26 EST , Service support ,
--- NOTE | 2019-12-23 18:58 | NURSING ---
PT ARRIVED TO FLOOR AT 1700 BY BED FROM [facility]. FAMILY WITH PT.
[2019-12-23] MEDS: Gabapentin 100 MG Capsule 200 MG PO (20:08)
[2019-12-23] MEDS: tiZANidine HCl 2 MG Tablet PO (20:09)
--- NOTE | 2019-12-23 20:43 | HP.PCM_ITS ---
Problem List (1) Debility Status: Acute (2) Toxic encephalopathy Status: Acute (3) Opioid overdose Status: Acute (4) Chronic pain Status: Chronic (5) Opioid dependence Status: Chronic (6) Congestive heart failure Status: Chronic (7) Iron deficiency anemia Status: Chronic (8) Osteoarthritis Status: Chronic (9) Neuropathic pain Status: Chronic (10) Muscle spasm Status: Chronic (11) Insomnia Status: Chronic (12) Hypertension Status: Chronic Qualifiers: (13) Right foot drop Status: Chronic (14) Hyponatremia Status: Chronic (15) YRIS (acute kidney injury) Status: Acute (16) Rhabdomyolysis Status: Acute History of Present Illness Date of Admission: 12/23/19 Chief Complaint: Here for rehabilitation, strengthening, prior to discharge home alone. The patient is a 79 year old Female with below past medical history presented to [facility] Emergency Department 12/19/2019 with confusion. 12/19/2019 CT brain normal. 12/19/2019 EKG sinus tachycardia, left ventricular hypertrophy with repolarizatio n abnormality. 12/19/2019 X-ray pelvis, right hip shows right hip replacement, no fracture. Confusion x 1 day, patient on floor confused. Incontinent of stool, down for unknown period of time, found by her daughter. Fingernails dusky. Patient lives alone, she has 3 children who all live 40 minutes away, and her children monitor her with remote cameras. Chronic pain, on morphine, sometimes confused when taking morphine. WBC 12.5, Hemoglobin 8.8, Hematocrit 27. BUN 93, Cr 6.63, Troponin 1043, CPK 5691, BNP 457. D-dimer 3.12. IV fluids given, Urine tox positive for opiates, UA pending. 12/19/2019 Admit to Hospital. Overdosed on morphine. Aggressive IV fluids for acute kidney injury, rhabdomyolysis. Black stools for over 1 year. 12/19/2019 Rapid Response Team called for morphine overdose, hypotensive, pinpoint pupils, apneic. Improved rapidly with Narcan administration. 12/20/2019 Dr. Bennett recommends Narcan PRN. IV Fluids for acute kidney injury. 12/21/2019 Cr improved to 1.78, BUN 53 with IV Fluids. CPK 1425 with IV Fluids. Potassium, Magnesium corrected. Confusion improved. Stool guaiac positive. 12/22/2019 Cr 1.01, BUN 33. No blood transfusion needed, but recommend General Surgery consult for EGD/Colonoscopy. 12/23/2019 Admit to TCU with debility, here for rehabilitation, strengthening, prior to discharge home alone with remote camera monitoring by her 3 children. On TCU, resident complains of shortness of breath, wheezing, Chest X-ray shows chronic changes, but nothing acute. She also complains of pain with swallowing, will consult General Surgery for upper and lower endoscopy since she has chronic anemia also. Past Medical History Past Medical History (Chronic Problems): Chronic Problems Chronic pain (Chronic) Opioid dependence (Chronic) Congestive heart failure (Chronic) Iron deficiency anemia (Chronic) Osteoarthritis (Chronic) Neuropathic pain (Chronic) Muscle spasm (Chronic) Insomnia (Chronic) Chronic pain disorder (Chronic) Hypertension (Chronic) Anxiety and depression (Chronic) Right foot drop (Chronic) Chronic anemia (Chronic) Hyponatremia (Chronic) Allergies No Known Allergies Allergy (Verified 12/19/19 16:26) Home Medications: Ambulatory Orders Medication Instructions Recorded Duloxetine HCl 60 mg PO DAILY 11/23/18 Gabapentin [Neurontin] 200 mg PO TID 11/23/18 Tizanidine HCl 2 mg PO TID 11/23/18 traZODone [Desyrel] 100 mg PO QHS PRN PRN 11/23/18 Lisinopril/Hydrochlorothiazide 2 tab PO DAILY 12/19/19 [Lisinopril-Hctz 20-12.5 mg Tab] Hydrocortisone 2.5% Crm [Hytone] 1 applic TOPICAL BID PRN PRN tube 12/23/19 Hydrocortisone [Anusol Hc] 25 mg RECTAL BID 12/23/19 Iron Polysaccharide Complex 150 mg PO DAILYCM 12/23/19 [Ferrex 150] Lorazepam [Ativan] 0.5 mg PO Q8H PRN PRN 3 Days #9 tab 12/23/19 Magnesium Hydroxide [Milk Of 30 ml PO DAILY 12/23/19 Magnesia] Metoprolol Tartrate [Lopressor 50 mg PO BID 12/23/19 (beta preston)] Pantoprazole Sodium [Protonix] 40 mg PO DAILY 12/23/19 SimETHICONE [Mylicon] 80 mg PO TIDPC PRN tab 12/23/19 Surgical History: total hip arthroplasty - Right., tonsillectomy, - - History of extensive trauma with right hip pin and follow-up right total hip replacement. Psychiatric History: Anxiety, Depression DOG SITTER History: No pertinent DOG SITTER history Lives: Alone Smoking Status: Never smoker Tobacco Use: Non-smoker Alcohol: None Drugs: None - *Family History Maternal Family History: Family History (Last Reviewed 12/19/19 @ 18:31 by SHEILA Parmar) Father Brain tumor Mother Gallbladder disease History Items: Hypertension Paternal Family History: Family History (Last Reviewed 12/19/19 @ 18:31 by SHEILA Parmar) Father Brain tumor Mother Gallbladder disease History Items: Cancer - Father with a history of brain cancer. Review of Systems Constitutional: Denies: Chills, Fever, Weight Change HEENT: Denies: Head Aches, Sinus Congestion, Sinus Drainage Cardiovascular: Denies: Chest Pain, Palpitations Respiratory: Reports: Shortness of Breath, Wheezing. Denies: Cough, Shortness of breath at rest, Sputum production Gastrointestinal: Reports: - - Pain with swallowing.. Denies: Abdominal Pain, Nausea, Vomiting Genitourinary: Denies: Dysuria Musculoskeletal: Denies: Joint Pain, Joint Tenderness Skin: Denies: Rash, Wounds Neurological: Denies: Numbness, Tingling, Focal weakness Psychiatric: Denies: Anxiety, Depression, Homicidal Ideations, Suicidal Ideations Hematologic/ Lymphatic: Denies: Easy Bruising, Easy Bleeding VTE Information - Inpt Only VTE Present on Admission: No VTE Mechan Device Prophylaxis: Knee High JACOB Hose VTE Pharm Prophylaxis ordered?: No Reason prophylaxis not ordered:: Medical Contraindication Patient Problems: Active and Suspected Problems Debility (Acute) Toxic encephalopathy (Acute) Opioid overdose (Acute) - Physical Exam Vitals/I&O's: Vital Signs Temp Pulse Resp BP Pulse Ox 99.4 F H 113 H 18 131/94 H 95 12/23/19 17:52 12/23/19 17:52 12/23/19 17:52 12/23/19 17:52 12/23/19 17:52 Oxygen Delivery Method Room Air Weight: 72 kg Body Mass Index (BMI) 24.8 Finger Stick Blood Glucose 135 Intake and Output for Last 24 Hours 12/21/19 12/22/19 12/23/19 23:59 23:59 23:59 Intake Total 120 / 120 Balance 120 / 120 General: Alert, Oriented x3, Cooperative HEENT: Atraumatic, PERRLA, EOMI, Normocephalic Neck: Supple, No JVD, Negative Carotid Bruits Lungs: Clear to auscultation, Normal air movement Cardiovascular: Regular rate, No murmurs Abdomen: Bowel Sounds Present, Soft, Non Tender Extremities: No edema, Capillary Refill Less than 3 Seconds Skin: No rashes, No breakdown Musculoskeletal: No Tenderness to Palpation of Joints or Extremities Neurological: Cranial nerves II-XII grossly intact Psych/Mental Status: Normal Affect, Appropriate Current Medications Duloxetine HCl (Cymbalta) 60 mg PO DAILY [facility] Gabapentin (Neurontin) 200 mg PO TID [facility] Last Admin: 12/23/19 20:08 Dose: 200 mg Documented by: Hydrochlorothiazide (Hctz) 25 mg PO DAILY [facility] Hydrocortisone (Hytone) 1 applic RECTAL BID PRN PRN; Protocol PRN Reason: APPLY TO RECTAL AREA Hydrocortisone Acetate (Anusol Hc) 25 mg RECTAL BID [facility] Lisinopril (Zestril) 40 mg PO DAILY [facility] Lorazepam (Ativan) 0.5 mg PO Q8H PRN PRN PRN Reason: ANXIETY/AGITATION Magnesium Hydroxide (Milk Of Magnesia) 30 ml PO DAILY [facility] Metoprolol Tartrate (Lopressor (Beta Preston)) 50 mg PO BID [facility] Pantoprazole Sodium (Protonix) 40 mg PO DAILY [facility] Polysaccharide Iron Complex (Ferrex 150) 150 mg PO DAILYCM [facility] Simethicone (Mylicon) 80 mg PO TIDPC PRN PRN Reason: Gas Tizanidine HCl (Zanaflex) 2 mg PO TID [facility] Last Admin: 12/23/19 20:09 Dose: 2 mg Documented by: Trazodone HCl (Desyrel) 100 mg PO QHS PRN PRN PRN Reason: INSOMNIA Tuberculin PPD (Tubersol, Aplisol, Ppd) 5 tu ID X1 ONE Stop: 12/24/19 10:01 Tuberculin PPD (Tubersol, Aplisol, Ppd) 5 tu ID X1 ONE Stop: 12/31/19 10:01 Assessment/Plan All Active Problems Debility (Acute) Toxic encephalopathy (Acute) Opioid overdose (Acute) YRIS (acute kidney injury) (Acute) Rhabdomyolysis (Acute) 79 year old female with below past medical history hospitalized for toxic encephalopathy secondary to morphine overdose, complicated by acute kidney injury, rhabdomyolysis, acute on chronic iron deficiency anemia, hypokalemia, hypomagnesemia, admitted to TCU with debility, here for rehabilitation, strengthening, prior to discharge home alone. * Debility - PT/OT. * Pain - Tylenol 1000MG Q6H PRN pain (1-10) * Bowel - Miralax 17GM daily, Senna/colace 1 tablet BID, Dulcolax 10MG PO daily PRN. * Adult immunization - Administer Prevnar 13, Pneumovax 23, Fluzone as appropriate. * DVT prophylaxis - Hold, resident has guaiac positive stools. * Depression - Duloxetine 60MG daily. * Neuropathic pain - Gabapentin 200MG TID. * Hypertension - Metoprolol 50MG BID, Lisinopril 40MG daily, HCTZ 25MG daily. * Hemorrhoids - Anusol 25MG DE BID, HC 2.5% cream BID PRN. * Iron deficiency anemia - Ferrex 150MG daily, consult General Surgery for EGD/colonoscopy. * Anxiety - Lorazepam 0.5MG Q8H PRN, stable chronic residential use, GDR not recommended. * GERD - MOM 30ML daily, Pantoprazole 40MG BID, she has pain in behind her sternum with swallowing, consult General Surgery for EGD. * Gas - Simethicone 80MG TIDPC PRN. * Muscle spasm - Tizanidine 2MG TID. * Insomnia - Trazodone 100MG QHS PRN.
[2019-12-24] MEDS: Acetaminophen 500 MG Tablet 1000 MG PO ×3 (00:09→17:40)
[2019-12-24] MEDS: Lisinopril 40 MG Tablet PO (05:12)
[2019-12-24] MEDS: hydroCHLOROthiazide 25 MG Tablet PO (05:13)
[2019-12-24] MEDS: Pantoprazole Sodium 40 MG Tablet PO ×2 (05:13→17:38)
[2019-12-24] MEDS: tiZANidine HCl 2 MG Tablet PO ×3 (05:14→21:42)
[2019-12-24] MEDS: DULoxetine Hcl 60 MG Capsule PO (05:14)
[2019-12-24] MEDS: Gabapentin 100 MG Capsule 200 MG PO ×3 (05:15→21:42)
[2019-12-24 05:21] VITALS: BP 157/111; PULSE 107
[2019-12-24] MEDS: Metoprolol Tartrate 50 MG Tablet PO ×2 (05:21→17:38)
[2019-12-24] MEDS: Menthol/Lanolin/Calamine/Znox 113 GM Tube 1 APPLIC TOPICAL ×2 (05:34→21:43)
[2019-12-24 05:35] LABS: Hematocrit 28.4 % (37-47); Hemoglobin 9.1 g/dL (12.0-15.0); Mean Corpuscular Volume 87.4 fL (81-99); Mean Platelet Vol. 10.7 fl (6.2-12.0); POSITIVE COUNT YES; POSITIVE MORPHOLOGY YES; Platelet Count 192 K/mm3 (150-450); RBC Distribution Width CV 15.4 % (11.6-14.6); RBC Distribution Width SD 46.5 fl (35.1-43.9); Red Blood Count 3.25 M/mm3 (4.2-5.4)
[2019-12-24 05:39] LABS: Differential Indicated MANUAL DIFF
[2019-12-24] MEDS: LORazepam 0.5 MG Tablet PO (05:42)
[2019-12-24 05:52] LABS: Anion Gap 8 (5-15); BUN 24 mg/dL (7-18); BUN/Creat Ratio 21.2 RATIO (10-20); Calcium,Total 8.4 mg/dL (8.5-10.1); Chloride 104 mmol/L (98-107); Creatinine, Serum 1.13 mg/dL (0.55-1.02); EST Glomerular Filtration Rate 50 mL/min (>60); Est Glom Filt Rate - Afr Amer 60 mL/min (>60); Estimated Creatinine Clearance 40.54 ml/min; Glucose 137 mg/dL (74-106); Potassium 3.1 mmol/L (3.5-5.1); Sodium Level 137 mmol/L (136-145)
[2019-12-24 06:12] LABS: Eosinophil 1 % (0-5); Lymphocyte 10 % (19-41); Metamyelocyte 4 % (0-1); Monocyte 8 % (0-10); Neutrophil-Band 15 % (0-5); Neutrophil-Segmented 62 % (47-70); Nucleated Red Bld Cells,Manual 1 % (0-5); Total Cells Counted 100 (MANUAL DIFF)
[2019-12-24 06:13] LABS: White Blood Count 9.4 K/mm3 (4.4-11.0)
[2019-12-24 06:15] LABS: Absolute Lymphocyte Count 0.94 X10^3/uL (0.83-4.51); Absolute Neutrophil Count 7.2 X10^3/uL (2.0-7.7); Lymphocyte # 0.94 X10^3/ul (4.0); Neutrophil # 7.24 X10^3/uL (2.7-7.7)
[2019-12-24 06:16] LABS: Platelet Estimate ADEQUATE (ADEQ)
[2019-12-24 06:17] LABS: Anisocytosis 1+; Hypochromasia RARE; Polychromasia 1+
[2019-12-24 06:42] VITALS: BP 128/80; PULSE 89
[2019-12-24] MEDS: Iron Polysaccharide Complex 150 MG CAPSULE PO (08:56)
[2019-12-24] MEDS: Tuberculin,Purif.prot.deriv. 50 TU/ML Vial 5 ML ID (10:04)
--- NOTE | 2019-12-24 10:08 | PCM.CONS.GEN ---
Problem List (1) Chronic anemia Status: Chronic (2) Positive occult stool blood test Status: Acute Reason for Consult Date of Consultation: 12/24/19 Reason for Consultation: Chronic anemia. Positive occult blood test. Melena. History of Present Illness: The patient is a 79 year old F who presented to the ED following an opioid overdose. She was recently discharged from the hospital to TCU for rehabilitation. Patient was noted to have positive occult blood test on 12/19/18. Patient notes her stools have been dark for several weeks. She notes they are currently loose and yellow. She denies bright red blood per rectum, nausea, vomiting, hematemesis, abdominal pain, heartburn. She denies having a previous upper and lower endoscopy. She denies family history of colon cancer. Past Medical History Past Medical History (Chronic Problems): Chronic Problems Chronic pain (Chronic) Opioid dependence (Chronic) Congestive heart failure (Chronic) Iron deficiency anemia (Chronic) Osteoarthritis (Chronic) Neuropathic pain (Chronic) Muscle spasm (Chronic) Insomnia (Chronic) Chronic pain disorder (Chronic) Hypertension (Chronic) Anxiety and depression (Chronic) Right foot drop (Chronic) Chronic anemia (Chronic) Hyponatremia (Chronic) Allergies No Known Allergies Allergy (Verified 12/19/19 16:26) Home Medications: Ambulatory Orders Medication Instructions Recorded Duloxetine HCl 60 mg PO DAILY 11/23/18 Gabapentin [Neurontin] 200 mg PO TID 11/23/18 Tizanidine HCl 2 mg PO TID 11/23/18 traZODone [Desyrel] 100 mg PO QHS PRN PRN 11/23/18 Lisinopril/Hydrochlorothiazide 2 tab PO DAILY 12/19/19 [Lisinopril-Hctz 20-12.5 mg Tab] Hydrocortisone 2.5% Crm [Hytone] 1 applic TOPICAL BID PRN PRN tube 12/23/19 Hydrocortisone [Anusol Hc] 25 mg RECTAL BID 12/23/19 Iron Polysaccharide Complex 150 mg PO DAILYCM 12/23/19 [Ferrex 150] Lorazepam [Ativan] 0.5 mg PO Q8H PRN PRN 3 Days #9 tab 12/23/19 Magnesium Hydroxide [Milk Of 30 ml PO DAILY 12/23/19 Magnesia] Metoprolol Tartrate [Lopressor 50 mg PO BID 12/23/19 (beta preston)] Pantoprazole Sodium [Protonix] 40 mg PO DAILY 12/23/19 SimETHICONE [Mylicon] 80 mg PO TIDPC PRN tab 12/23/19 Surgical History: total hip arthroplasty - Right., tonsillectomy, - - History of extensive trauma with right hip pin and follow-up right total hip replacement. 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 Review of Systems Constitutional: Reports: Fatigue HEENT: Denies: Head Aches, Sinus Congestion, Sinus Drainage Cardiovascular: Denies: Chest Pain, Palpitations Respiratory: Denies: Cough, Shortness of breath at rest, Sputum production Gastrointestinal: Reports: Diarrhea. Denies: Abdominal Pain, Nausea, Vomiting Genitourinary: Denies: Dysuria Musculoskeletal: Denies: Joint Pain, Joint Tenderness Skin: Denies: Rash, Wounds Neurological: Denies: Numbness, Tingling, Focal weakness Psychiatric: Denies: Anxiety, Depression, Homicidal Ideations, Suicidal Ideations Hematologic/ Lymphatic: Reports: Anemia, Hx of blood transfusion Patient Problems: Active and Suspected Problems Debility (Acute) Toxic encephalopathy (Acute) Opioid overdose (Acute) Positive occult stool blood test (Acute) - Physical Exam Vitals/I&O's: Vital Signs Temp Pulse Resp BP Pulse Ox 99.4 F H 89 18 128/80 H 95 12/23/19 17:52 12/24/19 06:42 12/23/19 17:52 12/24/19 06:42 12/23/19 17:52 Oxygen Delivery Method Room Air Weight: 158 lb 11.725 oz Body Mass Index (BMI) 24.8 Finger Stick Blood Glucose 135 Intake and Output for Last 24 Hours 12/22/19 12/23/19 12/24/19 23:59 23:59 23:59 Intake Total 120 / 120 Balance 120 / 120 General: Alert, Oriented x3, Cooperative HEENT: Atraumatic, PERRLA, EOMI, Normocephalic Neck: Supple, No JVD, Negative Carotid Bruits Lungs: Clear to auscultation, Normal air movement Cardiovascular: Regular rate, No murmurs Abdomen: Bowel Sounds Present, Soft, Non Tender Extremities: No edema, Capillary Refill Less than 3 Seconds Skin: No rashes, No breakdown Musculoskeletal: No Tenderness to Palpation of Joints or Extremities Neurological: Neuro grossly intact Psych/Mental Status: Normal Affect, Appropriate Laboratory Results 12/24/19 05:05: WBC 9.4, RBC 3.25 L, Hgb 9.1 L, Hct 28.4 L, MCV 87.4, MCH 28.0, MCHC 32.0, RDW Std Deviation 46.5 H, RDW Coeff of Alvarado 15.4 H, Plt Count 192, MPV 10.7, Neut % (Auto) Not Reportable, Absolute Neuts (auto) 7.2, Absolute Lymphs (auto) 0.94, Total Counted 100, Neutrophils % (Manual) 62, Band Neutrophils % 15 H, Lymphocytes % (Manual) 10 L, Monocytes % (Manual) 8, Eosinophils % (Manual) 1, Metamyelocytes % 4 H, Nucleated RBCs/100 WBC 1, Diff Path Review May foll, Platelet Estimate ADEQUATE, Polychromasia 1+, Hypochromasia RARE, Anisocytosis 1+ 12/24/19 05:05: Sodium 137, Potassium 3.1 L, Chloride 104, Carbon Dioxide 25.0, Anion Gap 8, BUN 24 H, Creatinine 1.13 H, Estim Creat Clear Calc 40.54, Est GFR (MDRD) Af Amer 60, Est GFR (MDRD) Non-Af 50 L, BUN/Creatinine Ratio 21.2 H, Glucose 137 H, Calcium 8.4 L Current Medications Acetaminophen (Tylenol) 1,000 mg PO Q6H PRN PRN PRN Reason: Pain Score 1-10/10 Last Admin: 12/24/19 08:59 Dose: 1,000 mg Documented by: Bisacodyl (Dulcolax) 10 mg PO DAILY PRN PRN Reason: Constipation Calamine/Phenol (Calmoseptine Ointment) 1 applic TOPICAL 0600,2200 [facility]; Protocol Last Admin: 12/24/19 05:34 Dose: 1 applicatio Documented by: Duloxetine HCl (Cymbalta) 60 mg PO DAILY [facility] Last Admin: 12/24/19 05:14 Dose: 60 mg Documented by: Gabapentin (Neurontin) 200 mg PO TID [facility] Last Admin: 12/24/19 05:15 Dose: 200 mg Documented by: Hydrochlorothiazide (Hctz) 25 mg PO DAILY [facility] Last Admin: 12/24/19 05:13 Dose: 25 mg Documented by: Hydrocortisone (Hytone) 1 applic RECTAL BID PRN PRN; Protocol PRN Reason: APPLY TO RECTAL AREA Hydrocortisone Acetate (Anusol Hc) 25 mg RECTAL BID [facility] Last Admin: 12/24/19 05:36 Dose: Not Given Documented by: Lisinopril (Zestril) 40 mg PO DAILY [facility] Last Admin: 12/24/19 05:12 Dose: 40 mg Documented by: Lorazepam (Ativan) 0.5 mg PO Q8H PRN PRN PRN Reason: ANXIETY/AGITATION Last Admin: 12/24/19 05:42 Dose: 0.5 mg Documented by: Magnesium Hydroxide (Milk Of Magnesia) 30 ml PO DAILY [facility] Last Admin: 12/24/19 05:37 Dose: Not Given Documented by: Metoprolol Tartrate (Lopressor (Beta Preston)) 50 mg PO BID [facility] Last Admin: 12/24/19 05:21 Dose: 50 mg Documented by: Multi-Ingredient Cream (Eucerin) 1 applic TOPICAL QHS [facility]; Protocol Pantoprazole Sodium (Protonix) 40 mg PO BID [facility] Last Admin: 12/24/19 05:13 Dose: 40 mg Documented by: Polyethylene Glycol (Miralax) 17 gm PO DAILY [facility] Last Admin: 12/24/19 05:37 Dose: Not Given Documented by: Polysaccharide Iron Complex (Ferrex 150) 150 mg PO DAILYCM [facility] Last Admin: 12/24/19 08:56 Dose: 150 mg Documented by: Potassium Chloride (K-Dur) [facility] Senna/Docusate Sodium (Senokot-S, Monique-Colace) 1 tablet PO BID [facility] Last Admin: 12/24/19 05:37 Dose: Not Given Documented by: Simethicone (Mylicon) 80 mg PO TIDPC PRN PRN Reason: Gas Tizanidine HCl (Zanaflex) 2 mg PO TID [facility] Last Admin: 12/24/19 05:14 Dose: 2 mg Documented by: Trazodone HCl (Desyrel) 100 mg PO QHS PRN PRN PRN Reason: INSOMNIA Tuberculin PPD (Tubersol, Aplisol, Ppd) 5 tu ID X1 ONE Stop: 12/31/19 10:01 Assessment/Plan All Active Problems Debility (Acute) Toxic encephalopathy (Acute) Opioid overdose (Acute) Positive occult stool blood test (Acute) YRIS (acute kidney injury) (Acute) Rhabdomyolysis (Acute) I have been consulted in conjunction with Dr. Parson. Impression: Chronic anemia. Positive occult blood test. History of melena. Plan: I have discussed this patient with Dr. Parson. I have discussed and explained an upper and lower scope with the patient including the bowel prep. At this time, the patient is refusing to have either scope performed. I have discussed the benefits and risks with this patient. She appreciated the information and will let the nursing staff know if she changes her mind. Patient has had the opportunity to ask and have questions answered. Thank you for allowing us to participate in this patient's care. Please contact our office if patient would like to proceed with the scopes. Code Visit Office Visits / Consults: [id number] IP Consult L3 - ? outpatient versus inpatient charge
--- NOTE | 2019-12-24 11:54 | CASEMGMT ---
Social Work Met with patient for initial assessment. Pt expressed difficult experience which led to issues with chronic pain. Pt saw pain management dr in the past, but now solely seeks assistance from PCP. Pt did not disclose to opioid use, depression or anxiety, but did report to medications to assist with her nerves. Validated pt's feelings and appreciation for pt sharing experience. Offered continued supportive listening. Pt grateful. Explained Palliative Medicine to pt to assist with pain management. Pt declined referral. Proceed to CP for interventions. Will continue to follow. Edilia Fernández, ODALIS GONZALEZW
--- NOTE | 2019-12-24 11:57 | NURSING ---
donavan consulted per order for anemia, + occult stool, Pain w/swallowing. SHEILA Becker saw and pt refusing to be scoped. Dr Dolan updated.
--- NOTE | 2019-12-24 13:30 | PCM.PN.RX ---
<JyotiNorma M - Last Filed: 12/24/19 13:51> Progress Note - Pharmacy Subjective: [] TCU ADMISSION Objective: Allergies No Known Allergies Allergy (Verified 12/19/19 16:26) Current Medications Generic Name Dose Route Start Last Admin Trade Name Freq PRN Reason Stop Dose Admin Acetaminophen 1,000 mg 12/23/19 21:06 12/24/19 08:59 Tylenol PO 1,000 mg Q6H PRN PRN Administration Pain Score 1-10/10 Bisacodyl 10 mg 12/23/19 21:06 Dulcolax PO DAILY PRN Constipation Calamine/Phenol 1 applic 12/24/19 06:00 12/24/19 05:34 Calmoseptine Ointment TOPICAL 1 applicatio 0600,2200 [facility] Administration Protocol Duloxetine HCl 60 mg 12/24/19 06:00 12/24/19 05:14 Cymbalta PO 60 mg DAILY [facility] Administration Gabapentin 200 mg 12/23/19 22:00 12/24/19 13:04 Neurontin PO 200 mg TID [facility] Administration Hydrochlorothiazide 25 mg 12/24/19 06:00 12/24/19 05:13 Hctz PO 25 mg DAILY [facility] Administration Hydrocortisone 1 applic 12/23/19 18:38 Hytone RECTAL BID PRN PRN APPLY TO RECTAL AREA Protocol Hydrocortisone Acetate 25 mg 12/24/19 06:00 12/24/19 05:36 Anusol Hc RECTAL Not Given BID [facility] Lisinopril 40 mg 12/24/19 06:00 12/24/19 05:12 Zestril PO 40 mg DAILY [facility] Administration Lorazepam 0.5 mg 12/23/19 18:38 12/24/19 05:42 Ativan PO 0.5 mg Q8H PRN PRN Administration ANXIETY/AGITATION Magnesium Hydroxide 30 ml 12/24/19 06:00 12/24/19 05:37 Milk Of Magnesia PO Not Given DAILY [facility] Metoprolol Tartrate 50 mg 12/24/19 06:00 12/24/19 05:21 Lopressor (Beta Preston) PO 50 mg BID [facility] Administration Multi-Ingredient Cream 1 applic 12/24/19 22:00 Eucerin TOPICAL QHS [facility] Protocol Pantoprazole Sodium 40 mg 12/24/19 06:00 12/24/19 05:13 Protonix PO 40 mg BID [facility] Administration Polyethylene Glycol 17 gm 12/24/19 06:00 12/24/19 05:37 Miralax PO Not Given DAILY [facility] Polysaccharide Iron Complex 150 mg 12/24/19 08:00 12/24/19 08:56 Ferrex 150 PO 150 mg DAILYCM [facility] Administration Potassium Chloride 20 meq 12/24/19 17:00 K-Dur PO BIDCM [facility] Senna/Docusate Sodium 1 tablet 12/24/19 06:00 12/24/19 05:37 Senokot-S, Monique-Colace PO Not Given BID [facility] Simethicone 80 mg 12/23/19 18:38 Mylicon PO TIDPC PRN Gas Tizanidine HCl 2 mg 12/23/19 22:00 12/24/19 13:04 Zanaflex PO 2 mg TID [facility] Administration Trazodone HCl 100 mg 12/23/19 18:38 Desyrel PO QHS PRN PRN INSOMNIA Tuberculin PPD 5 tu 12/31/19 10:00 Tubersol, Aplisol, Ppd ID 12/31/19 10:01 X1 ONE Problem List Debility (Acute) Toxic encephalopathy (Acute) Opioid overdose (Acute) Chronic pain (Chronic) Opioid dependence (Chronic) Congestive heart failure (Chronic) Iron deficiency anemia (Chronic) Osteoarthritis (Chronic) Neuropathic pain (Chronic) Muscle spasm (Chronic) Insomnia (Chronic) Positive occult stool blood test (Acute) Vital Signs Temp Pulse Resp BP Pulse Ox 99.4 F H 89 18 128/80 H 95 12/23/19 17:52 12/24/19 06:42 12/23/19 17:52 12/24/19 06:42 12/23/19 17:52 Oxygen Delivery Method Room Air Weight: 70.307 kg Body Mass Index (BMI) 24.8 Finger Stick Blood Glucose 135 Sodium 137 mmol/L (136-145) 12/24/19 05:05 Potassium 3.1 mmol/L (3.5-5.1) L 12/24/19 05:05 Chloride 104 mmol/L (98-107) 12/24/19 05:05 Carbon Dioxide 25.0 mmol/L (21.0-32.0) 12/24/19 05:05 Anion Gap 8 (5-15) 12/24/19 05:05 BUN 24 mg/dL (7-18) H 12/24/19 05:05 Creatinine 1.13 mg/dL (0.55-1.02) H 12/24/19 05:05 Est GFR (MDRD) Af Amer 60 mL/min (>60) 12/24/19 05:05 Est GFR (MDRD) Non-Af 50 mL/min (>60) L 12/24/19 05:05 BUN/Creatinine Ratio 21.2 RATIO (10-20) H 12/24/19 05:05 Glucose 137 mg/dL (74-106) H 12/24/19 05:05 Assessment/Plan: 1. Pain: Tylenol 1000mg PO Q6h PRN Pain 1-09/05. Please continue to monitor PRN usage, increased/decreased pain 2. Hypertension: Hydrochlorothiazide 25mg PO Daily, Lisinopril 40mg PO Daily, Metoprolol tartrate 50mg PO BID. Please continue to monitor BP, pulse 3. Neuropathic Pain: Gabapentin 200mg PO TID. Please continue to monitor for medication effectiveness, renal function 4. Muscle spasms: Tizanidine 2mg PO TID. Please continue to monitor for medication effectiveness 5. Hemorrhoids: Anusol HC 25mg Rectal BID, Hytone cream rectally BID PRN. Please continue to monitor for resolution of symptoms 6. GERD: Milk of magnesia 30mL PO Daily, Protonix 40mg PO BID. Please continue to monitor for improvement in GERD symptoms. 7. Anemia: Ferrex 150mg PO Daily. Please continue to monitor H/H, iron levels as clinically indicated. Please continue to monitor for S/S bleeding events 8. Potassium Deficiency: K-Dur 20mEq PO BID. Please continue to monitor potassium levels as clinically indicated 9. Gas: Simethicone 80mg PO TID PRN. Please continue to monitor for resolution of symptoms, PRN medication usage Psychotropic Medications: *10. Depression: Cymbalta 60mg PO Daily. Please continue to monitor for S/S depression. If clinically appropriate, please consider a GDR by 05/2020 *11. Insomnia: Trazodone 100mg PO QHS PRN. Continue to monitor PRN use. Please consider a GDR by 05/2020 if clinically appropriate *12. Anxiety/Agitation: Ativan 0.5mg PO Q8h PRN. Continue to monitor for medication effectiveness/ PRN use. Please consider a GDR by 05/2020 if clinically appropriate Unnecessary Medications: Bowel Regimen: Miralax 17g PO Daily, Senna/Docusate 1 tablet PO BID, Bisacodyl 10mg PO Daily PRN. Please continue to monitor usage, increased/decreased diarrhea and/or constipation Date of Note:: 12/24/19 - Provider Comments Provider responsibility: Provider responsible to enter orders to implement recommendations <Mike Dolan Chi - Last Filed: 12/24/19 16:30> Progress Note - Pharmacy Subjective: [] Objective: Allergies No Known Allergies Allergy (Verified 12/19/19 16:26) Current Medications Generic Name Dose Route Start Last Admin Trade Name Freq PRN Reason Stop Dose Admin Acetaminophen 1,000 mg 12/23/19 21:06 12/24/19 08:59 Tylenol PO 1,000 mg Q6H PRN PRN Administration Pain Score 1-10/10 Bisacodyl 10 mg 12/23/19 21:06 Dulcolax PO DAILY PRN Constipation Calamine/Phenol 1 applic 12/24/19 06:00 12/24/19 05:34 Calmoseptine Ointment TOPICAL 1 applicatio 0600,2200 [facility] Administration Protocol Duloxetine HCl 60 mg 12/24/19 06:00 12/24/19 05:14 Cymbalta PO 60 mg DAILY [facility] Administration Gabapentin 200 mg 12/23/19 22:00 12/24/19 13:04 Neurontin PO 200 mg TID [facility] Administration Hydrochlorothiazide 25 mg 12/24/19 06:00 12/24/19 05:13 Hctz PO 25 mg DAILY [facility] Administration Hydrocortisone 1 applic 12/23/19 18:38 Hytone RECTAL BID PRN PRN APPLY TO RECTAL AREA Protocol Hydrocortisone Acetate 25 mg 12/24/19 06:00 12/24/19 05:36 Anusol Hc RECTAL Not Given BID [facility] Lisinopril 40 mg 12/24/19 06:00 12/24/19 05:12 Zestril PO 40 mg DAILY [facility] Administration Lorazepam 0.5 mg 12/23/19 18:38 12/24/19 05:42 Ativan PO 0.5 mg Q8H PRN PRN Administration ANXIETY/AGITATION Magnesium Hydroxide 30 ml 12/24/19 06:00 12/24/19 05:37 Milk Of Magnesia PO Not Given DAILY [facility] Metoprolol Tartrate 50 mg 12/24/19 06:00 12/24/19 05:21 Lopressor (Beta Preston) PO 50 mg BID [facility] Administration Multi-Ingredient Cream 1 applic 12/24/19 22:00 Eucerin TOPICAL QHS [facility] Protocol Pantoprazole Sodium 40 mg 12/24/19 06:00 12/24/19 05:13 Protonix PO 40 mg BID [facility] Administration Polyethylene Glycol 17 gm 12/24/19 06:00 12/24/19 05:37 Miralax PO Not Given DAILY [facility] Polysaccharide Iron Complex 150 mg 12/24/19 08:00 12/24/19 08:56 [facility] Potassium Chloride 20 meq 12/24/19 17:00 [facility] Senna/Docusate Sodium 1 tablet 12/24/19 06:00 12/24/19 05:37 Senokot-S, Monique-Colace PO Not Given BID [facility] Simethicone 80 mg 12/23/19 18:38 Mylicon PO TIDPC PRN Gas Tizanidine HCl 2 mg 12/23/19 22:00 12/24/19 13:04 Zanaflex PO 2 mg TID [facility] Administration Trazodone HCl 100 mg 12/23/19 18:38 Desyrel PO QHS PRN PRN INSOMNIA Tuberculin PPD 5 tu 12/31/19 10:00 Tubersol, Aplisol, Ppd ID 12/31/19 10:01 X1 ONE Problem List Debility (Acute) Toxic encephalopathy (Acute) Opioid overdose (Acute) Chronic pain (Chronic) Opioid dependence (Chronic) Congestive heart failure (Chronic) Iron deficiency anemia (Chronic) Osteoarthritis (Chronic) Neuropathic pain (Chronic) Muscle spasm (Chronic) Insomnia (Chronic) Positive occult stool blood test (Acute) Vital Signs Temp Pulse Resp BP Pulse Ox 97.2 F L 96 18 138/88 H 96 12/24/19 15:26 12/24/19 15:26 12/24/19 15:26 12/24/19 15:26 12/24/19 15:26 Oxygen Delivery Method Room Air Weight: 70.307 kg Body Mass Index (BMI) 24.8 Finger Stick Blood Glucose 135 Sodium 137 mmol/L (136-145) 12/24/19 05:05 Potassium 3.1 mmol/L (3.5-5.1) L 12/24/19 05:05 Chloride 104 mmol/L (98-107) 12/24/19 05:05 Carbon Dioxide 25.0 mmol/L (21.0-32.0) 12/24/19 05:05 Anion Gap 8 (5-15) 12/24/19 05:05 BUN 24 mg/dL (7-18) H 12/24/19 05:05 Creatinine 1.13 mg/dL (0.55-1.02) H 12/24/19 05:05 Est GFR (MDRD) Af Amer 60 mL/min (>60) 12/24/19 05:05 Est GFR (MDRD) Non-Af 50 mL/min (>60) L 12/24/19 05:05 BUN/Creatinine Ratio 21.2 RATIO (10-20) H 12/24/19 05:05 Glucose 137 mg/dL (74-106) H 12/24/19 05:05 Assessment/Plan: Psychotropic Medications: Unnecessary Medications: Bowel Regimen: - Provider Comments Provider responsibility: Provider responsible to enter orders to implement recommendations Provider Comments to Recommendations by Pharmacy: Agree
[2019-12-24 15:26] VITALS: BP 138/88; PULSE 96; RESP 18; TEMP 36.2; O2SAT 96
[2019-12-24 15:32] LABS: Pathologist Review Reviewed
--- NOTE | 2019-12-24 15:39 | NURSING ---
cxr reviewed by Dr Dolan this AM, no new orders.
[2019-12-24 17:38] VITALS: BP 138/88; PULSE 96
[2019-12-24] MEDS: Senna/Docusate Sodium 1 Tablet PO (17:38)
[2019-12-24] MEDS: Hydrocortisone 25 MG Suppository RECTAL (18:24)
[2019-12-25] MEDS: Acetaminophen 500 MG Tablet 1000 MG PO ×2 (03:10→11:54)
[2019-12-25] MEDS: Menthol/Lanolin/Calamine/Znox 113 GM Tube 1 APPLIC TOPICAL ×2 (04:39→20:31)
[2019-12-25] MEDS: Gabapentin 100 MG Capsule 200 MG PO ×3 (04:40→20:37)
[2019-12-25] MEDS: DULoxetine Hcl 60 MG Capsule PO (04:40)
[2019-12-25] MEDS: hydroCHLOROthiazide 25 MG Tablet PO (04:40)
[2019-12-25] MEDS: Pantoprazole Sodium 40 MG Tablet PO ×2 (04:40→17:45)
[2019-12-25 04:41] VITALS: BP 161/108; PULSE 105
[2019-12-25] MEDS: Lisinopril 40 MG Tablet PO (04:41)
[2019-12-25] MEDS: Metoprolol Tartrate 50 MG Tablet PO ×2 (04:41→17:46)
[2019-12-25] MEDS: tiZANidine HCl 2 MG Tablet PO ×3 (04:41→20:38)
[2019-12-25] MEDS: Iron Polysaccharide Complex 150 MG CAPSULE PO (08:17)
[2019-12-25 10:00] VITALS: RESP 16
[2019-12-25] MEDS: LORazepam 0.5 MG Tablet PO (15:04)
[2019-12-25 16:00] VITALS: BP 139/92; PULSE 97; RESP 20; TEMP 35.8; O2SAT 95
[2019-12-25] MEDS: Hydrocortisone 25 MG Suppository RECTAL (17:45)
[2019-12-25 17:46] VITALS: BP 132/92; PULSE 97
[2019-12-25] MEDS: traZODone 100 MG Tablet PO (20:56)
[2019-12-26] MEDS: Acetaminophen 500 MG Tablet 1000 MG PO (03:10)
[2019-12-26] MEDS: LORazepam 0.5 MG Tablet PO ×3 (04:48→21:12)
[2019-12-26] MEDS: Magnesium Hydroxide 30 ML UDC PO (04:50)
[2019-12-26] MEDS: Pantoprazole Sodium 40 MG Tablet PO ×2 (04:52→17:21)
[2019-12-26] MEDS: Gabapentin 100 MG Capsule 200 MG PO ×3 (04:52→21:01)
[2019-12-26] MEDS: tiZANidine HCl 2 MG Tablet PO ×3 (04:52→21:02)
[2019-12-26 04:53] VITALS: BP 128/79; PULSE 93
[2019-12-26] MEDS: Metoprolol Tartrate 50 MG Tablet PO ×2 (04:53→17:21)
[2019-12-26] MEDS: hydroCHLOROthiazide 25 MG Tablet PO (04:53)
[2019-12-26] MEDS: Lisinopril 40 MG Tablet PO (04:53)
[2019-12-26] MEDS: DULoxetine Hcl 60 MG Capsule PO (04:54)
[2019-12-26] MEDS: Hydrocortisone 25 MG Suppository RECTAL ×2 (04:54→17:22)
[2019-12-26] MEDS: Menthol/Lanolin/Calamine/Znox 113 GM Tube 1 APPLIC TOPICAL ×2 (04:54→21:03)
[2019-12-26 06:14] LABS: Anion Gap 6 (5-15); BUN 24 mg/dL (7-18); BUN/Creat Ratio 21.2 RATIO (10-20); Calcium,Total 8.5 mg/dL (8.5-10.1); Chloride 102 mmol/L (98-107); Creatinine, Serum 1.13 mg/dL (0.55-1.02); EST Glomerular Filtration Rate 50 mL/min (>60); Est Glom Filt Rate - Afr Amer 60 mL/min (>60); Estimated Creatinine Clearance 40.54 ml/min; Glucose 129 mg/dL (74-106); Potassium 3.5 mmol/L (3.5-5.1); Sodium Level 135 mmol/L (136-145)
[2019-12-26] MEDS: Iron Polysaccharide Complex 150 MG CAPSULE PO (08:09)
--- NOTE | 2019-12-26 08:55 | RAD_ITS ---
STUDY: X-RAY - ABDOMEN/PELVIS REASON FOR EXAM: Female, 79 years old. pt. states she isn''t having any issues with her bowels, no pain, she said the doctor thinks she is constipated TECHNIQUE: Single AP view of the abdomen / pelvis. COMPARISON: None. FINDINGS: There is an unremarkable bowel gas pattern. There is no demonstrated free abdominal air. The visualized liver, spleen and kidneys are grossly normal in size and morphology. There are calcified phleboliths in the pelvis. There are diffuse degenerative changes of the visualized lumbar spine. Levoscoliosis. Prior right total hip replacement. RAD/Abdomen Single View IMPRESSION: No acute abnormality is seen. Electronically Signed: Avery Pabon, at 9:36 EST , Service support ,
--- NOTE | 2019-12-26 10:42 | NURSING ---
Addendum entered by Dave Voss 12/26/19 10:44: REPORTED TO JOSE TIERNEY Original Note: PT COMPLAINED OF A SORE TONGUE, TONGUE LOOKS SLIGHTLY RED REST OF MOUTH LOOKS GOOD.
[2019-12-26 15:26] VITALS: BP 109/70; PULSE 86; RESP 20; TEMP 37.3; O2SAT 96
[2019-12-26 17:21] VITALS: PULSE 86
[2019-12-26 21:05] VITALS: PULSE 74; RESP 16; O2SAT 96
[2019-12-27] MEDS: Acetaminophen 500 MG Tablet 1000 MG PO ×3 (00:03→19:46)
[2019-12-27] MEDS: traZODone 100 MG Tablet PO (02:53)
[2019-12-27] MEDS: Pantoprazole Sodium 40 MG Tablet PO ×2 (05:04→16:59)
[2019-12-27] MEDS: tiZANidine HCl 2 MG Tablet PO ×3 (05:04→21:58)
[2019-12-27] MEDS: Lisinopril 40 MG Tablet PO (05:04)
[2019-12-27] MEDS: hydroCHLOROthiazide 25 MG Tablet PO (05:04)
[2019-12-27] MEDS: DULoxetine Hcl 60 MG Capsule PO (05:04)
[2019-12-27] MEDS: Magnesium Hydroxide 30 ML UDC PO (05:04)
[2019-12-27] MEDS: Gabapentin 100 MG Capsule 200 MG PO ×3 (05:04→21:58)
[2019-12-27 05:07] VITALS: BP 144/92; PULSE 96
[2019-12-27] MEDS: Hydrocortisone 25 MG Suppository RECTAL (05:07)
[2019-12-27] MEDS: Metoprolol Tartrate 50 MG Tablet PO ×2 (05:07→16:59)
[2019-12-27] MEDS: Menthol/Lanolin/Calamine/Znox 113 GM Tube 1 APPLIC TOPICAL ×2 (05:13→21:59)
[2019-12-27] MEDS: Iron Polysaccharide Complex 150 MG CAPSULE PO (08:01)
[2019-12-27 10:00] VITALS: PULSE 98; RESP 16; O2SAT 97
[2019-12-27] MEDS: LORazepam 0.5 MG Tablet PO ×2 (13:27→21:58)
[2019-12-27 15:31] VITALS: BP 152/86; PULSE 98; RESP 18; TEMP 36.8; O2SAT 99
[2019-12-27 16:59] VITALS: BP 152/86; PULSE 98
--- NOTE | 2019-12-27 19:48 | NURSING ---
Attempted to administer soap suds enema per order. Patient continues to refuse. States, All I have been doing is going. My x-ray showed there's nothing in there. Will continue to attempt.
[2019-12-28] MEDS: Lisinopril 40 MG Tablet PO (05:41)
[2019-12-28] MEDS: DULoxetine Hcl 60 MG Capsule PO (05:41)
[2019-12-28] MEDS: Pantoprazole Sodium 40 MG Tablet PO ×2 (05:41→17:33)
[2019-12-28] MEDS: tiZANidine HCl 2 MG Tablet PO ×3 (05:42→19:55)
[2019-12-28] MEDS: hydroCHLOROthiazide 25 MG Tablet PO (05:42)
[2019-12-28] MEDS: Gabapentin 100 MG Capsule 200 MG PO ×3 (05:42→19:55)
[2019-12-28] MEDS: Acetaminophen 500 MG Tablet 1000 MG PO ×2 (05:45→19:59)
[2019-12-28 05:46] VITALS: BP 155/99; PULSE 109
[2019-12-28] MEDS: Menthol/Lanolin/Calamine/Znox 113 GM Tube 1 APPLIC TOPICAL ×2 (05:46→19:57)
[2019-12-28] MEDS: Metoprolol Tartrate 50 MG Tablet PO ×2 (05:46→17:32)
[2019-12-28] MEDS: Iron Polysaccharide Complex 150 MG CAPSULE PO (08:57)
[2019-12-28] MEDS: LORazepam 0.5 MG Tablet PO ×2 (10:42→19:54)
[2019-12-28 15:33] VITALS: BP 149/90; PULSE 87; RESP 16; TEMP 36.6; O2SAT 96
[2019-12-28 17:32] VITALS: BP 149/90; PULSE 87
[2019-12-28 19:38] VITALS: PULSE 82; RESP 18; O2SAT 97
[2019-12-28] MEDS: traZODone 100 MG Tablet PO (22:15)
[2019-12-29] MEDS: tiZANidine HCl 2 MG Tablet PO ×3 (05:46→21:34)
[2019-12-29] MEDS: Pantoprazole Sodium 40 MG Tablet PO ×2 (05:46→17:41)
[2019-12-29] MEDS: hydroCHLOROthiazide 25 MG Tablet PO (05:46)
[2019-12-29] MEDS: Lisinopril 40 MG Tablet PO (05:46)
[2019-12-29] MEDS: Gabapentin 100 MG Capsule 200 MG PO ×3 (05:46→21:34)
[2019-12-29] MEDS: DULoxetine Hcl 60 MG Capsule PO (05:47)
[2019-12-29] MEDS: Acetaminophen 500 MG Tablet 1000 MG PO ×3 (05:47→21:35)
[2019-12-29] MEDS: Menthol/Lanolin/Calamine/Znox 113 GM Tube 1 APPLIC TOPICAL ×2 (05:48→21:39)
[2019-12-29 05:51] VITALS: BP 138/89; PULSE 97
[2019-12-29] MEDS: Metoprolol Tartrate 50 MG Tablet PO ×2 (05:51→17:40)
[2019-12-29] MEDS: Iron Polysaccharide Complex 150 MG CAPSULE PO (08:15)
[2019-12-29 08:30] VITALS: PULSE 84; RESP 18; O2SAT 96
[2019-12-29] MEDS: LORazepam 0.5 MG Tablet PO ×2 (13:31→21:35)
[2019-12-29 14:09] VITALS: BP 130/83; PULSE 93; RESP 17; TEMP 36.8; O2SAT 96
[2019-12-29 17:40] VITALS: PULSE 93
[2019-12-29] MEDS: Senna/Docusate Sodium 1 Tablet PO (17:41)
[2019-12-29] MEDS: traZODone 100 MG Tablet PO (21:35)
[2019-12-30 05:04] VITALS: BP 121/81; PULSE 90
[2019-12-30] MEDS: Lisinopril 40 MG Tablet PO (05:04)
[2019-12-30] MEDS: DULoxetine Hcl 60 MG Capsule PO (05:04)
[2019-12-30] MEDS: tiZANidine HCl 2 MG Tablet PO ×3 (05:04→22:03)
[2019-12-30] MEDS: Metoprolol Tartrate 50 MG Tablet PO ×2 (05:04→16:56)
[2019-12-30] MEDS: Senna/Docusate Sodium 1 Tablet PO ×2 (05:04→16:55)
[2019-12-30] MEDS: Gabapentin 100 MG Capsule 200 MG PO ×3 (05:04→22:03)
[2019-12-30] MEDS: hydroCHLOROthiazide 25 MG Tablet PO (05:04)
[2019-12-30] MEDS: Pantoprazole Sodium 40 MG Tablet PO ×2 (05:04→16:55)
[2019-12-30] MEDS: Acetaminophen 500 MG Tablet 1000 MG PO ×3 (05:11→21:15)
[2019-12-30] MEDS: Menthol/Lanolin/Calamine/Znox 113 GM Tube 1 APPLIC TOPICAL ×2 (05:14→22:05)
[2019-12-30] MEDS: LORazepam 0.5 MG Tablet PO ×2 (05:41→16:59)
[2019-12-30] MEDS: Iron Polysaccharide Complex 150 MG CAPSULE PO (07:41)
--- NOTE | 2019-12-30 13:36 | CASEMGMT ---
Social Work Reviewed and agreed with social work project management intern documentation on this date. Edilia Fernández, COMMUNICATIONS LEAD MUD PLANT OPERATOR
[2019-12-30 14:03] VITALS: BP 103/63; PULSE 98; RESP 16; TEMP 37.1; O2SAT 94
[2019-12-30 16:56] VITALS: PULSE 96
[2019-12-30] MEDS: traZODone 100 MG Tablet PO (22:03)
[2019-12-31 05:23] VITALS: BP 112/70; PULSE 93
[2019-12-31] MEDS: tiZANidine HCl 2 MG Tablet PO ×3 (05:23→21:41)
[2019-12-31] MEDS: Pantoprazole Sodium 40 MG Tablet PO ×2 (05:23→17:18)
[2019-12-31] MEDS: Metoprolol Tartrate 50 MG Tablet PO ×2 (05:23→17:18)
[2019-12-31] MEDS: DULoxetine Hcl 60 MG Capsule PO (05:23)
[2019-12-31] MEDS: Gabapentin 100 MG Capsule 200 MG PO ×3 (05:23→21:43)
[2019-12-31] MEDS: Senna/Docusate Sodium 1 Tablet PO ×2 (05:24→17:18)
[2019-12-31] MEDS: Menthol/Lanolin/Calamine/Znox 113 GM Tube 1 APPLIC TOPICAL ×2 (05:24→21:44)
[2019-12-31] MEDS: Lisinopril 40 MG Tablet PO (05:24)
[2019-12-31] MEDS: hydroCHLOROthiazide 25 MG Tablet PO (05:24)
[2019-12-31] MEDS: LORazepam 0.5 MG Tablet PO ×3 (05:30→22:27)
[2019-12-31 06:07] LABS: Absolute Lymphocyte Count 0.99 X10^3/uL (0.83-4.51); Absolute Neutrophil Count 9.6 X10^3/uL (2.0-7.7); Basophil# 0.06 X10^3/uL; Basophil% 0.5 % (0-1); Eosinophil# 0.12 X10^3/uL; Hematocrit 27.6 % (37-47); Hemoglobin 8.8 g/dL (12.0-15.0); Lymphocyte # 0.99 X10^3/ul (4.0); Lymphocyte % 8.4 % (19-41); Mean Corp Hgb Conc 31.9 g/dL (32-36); Mean Corpuscular Hgb 27.9 pg (27.0-32.0); Mean Corpuscular Volume 87.6 fL (81-99); Mean Platelet Vol. 10.2 fl (6.2-12.0); Monocyte# 1.02 X10^3/uL; Monocyte% 8.6 % (0-10); NRBC Flagged by Analyzer 0 % (0-5); Neutrophil # 9.57 X10^3/uL (2.7-7.7); Platelet Count 331 K/mm3 (150-450); RBC Distribution Width CV 15.4 % (11.6-14.6); Red Blood Count 3.15 M/mm3 (4.2-5.4); White Blood Count 11.8 K/mm3 (4.4-11.0)
[2019-12-31 06:25] LABS: Anion Gap 5 (5-15); BUN 12 mg/dL (7-18); Calcium,Total 8.4 mg/dL (8.5-10.1); Chloride 103 mmol/L (98-107); EST Glomerular Filtration Rate 57 mL/min (>60); Est Glom Filt Rate - Afr Amer 69 mL/min (>60); Estimated Creatinine Clearance 45.82 ml/min; Glucose 109 mg/dL (74-106); Sodium Level 133 mmol/L (136-145)
[2019-12-31] MEDS: Iron Polysaccharide Complex 150 MG CAPSULE PO (08:11)
[2019-12-31] MEDS: Tuberculin,Purif.prot.deriv. 50 TU/ML Vial 5 ML ID (08:17)
[2019-12-31] MEDS: Acetaminophen 500 MG Tablet 1000 MG PO ×3 (09:18→21:45)
--- NOTE | 2019-12-31 09:34 | PCA ---
Patient refused to wear tedhose this morning
--- NOTE | 2019-12-31 10:15 | CASEMGMT ---
Social Work IDT met with patient and two daughters for Care Plan meeting. Pt is SBA with all ADLs, has decreased endurance, can do 5 steps with 2 HRs at SBA, walk 100ft SBA with FWW. Explained [facility] insurance, NRD 01/01, anticipated DC 01/09, explained and provided [employer] Care plan to pt. Discussed DC plans, pt agreeable to [facility], dtrs continue to help with center receptionist, meals, groceries. Pt has life alert and cameras in home for safety. Pt requesting hospital bed when return home, r/t dx of CHF and requires head of bed to be elevated more than 30 degrees most of the time. Pt expressed praise for [facility] staff. Will continue to follow. Iman Hopkins, social work intern retail Edilia Fernández, SENIOR ASIC DESIGN ENGINEER LIBRARY DIRECTOR
[2019-12-31 15:25] VITALS: BP 116/78; PULSE 93; RESP 18; TEMP 37.3; O2SAT 95
[2019-12-31 17:18] VITALS: PULSE 93
[2019-12-31] MEDS: BMX LIQUID 180 ML PO ×2 (17:19→23:29)
[2019-12-31] MEDS: traZODone 100 MG Tablet PO (22:27)
[2020-01-01] MEDS: Senna/Docusate Sodium 1 Tablet PO ×2 (06:29→17:58)
[2020-01-01] MEDS: Gabapentin 100 MG Capsule 200 MG PO ×3 (06:29→20:01)
[2020-01-01] MEDS: Pantoprazole Sodium 40 MG Tablet PO ×2 (06:30→17:58)
[2020-01-01] MEDS: tiZANidine HCl 2 MG Tablet PO ×3 (06:30→20:03)
[2020-01-01] MEDS: hydroCHLOROthiazide 25 MG Tablet PO (06:30)
[2020-01-01] MEDS: Lisinopril 40 MG Tablet PO (06:30)
[2020-01-01] MEDS: DULoxetine Hcl 60 MG Capsule PO (06:30)
[2020-01-01 06:33] VITALS: BP 100/62; PULSE 83
[2020-01-01] MEDS: Metoprolol Tartrate 50 MG Tablet PO ×2 (06:33→17:58)
[2020-01-01] MEDS: Menthol/Lanolin/Calamine/Znox 113 GM Tube 1 APPLIC TOPICAL ×2 (06:41→20:05)
[2020-01-01] MEDS: Polyethylene Glycol 3350 17 GM PACKET PO (06:42)
[2020-01-01] MEDS: Magnesium Hydroxide 30 ML UDC PO (06:43)
[2020-01-01] MEDS: Iron Polysaccharide Complex 150 MG CAPSULE PO (08:45)
[2020-01-01 10:25] VITALS: PULSE 74; RESP 18; O2SAT 94
[2020-01-01] MEDS: Acetaminophen 500 MG Tablet 1000 MG PO ×2 (13:09→21:19)
[2020-01-01 15:31] VITALS: BP 87/45; PULSE 80; RESP 16; TEMP 36.2; O2SAT 97
[2020-01-01 16:04] VITALS: BP 105/66
--- NOTE | 2020-01-01 16:08 | CASEMGMT ---
Social Work Revisited discussion on advanced directives, pt did not wish to complete them at this time, but was educated for doing in the future, pt was given [place] card. Discussed insurance with pt with next review date 01/06 and anticipated DC date 01/09. Pt agreeable to going home with [facility], provided list of [facility] agencies. Pt requested hospital bed, pt requires head of bed to be elevated more than 30 degrees most of the time due to CHF. Referral made to [facility]. Will continue to follow. Iman Hopkins, social work rn international Edilia Fernández, DYE RANGE TENDER DIRECTOR STRATEGY
--- NOTE | 2020-01-01 17:02 | CASEMGMT ---
Social Work Reviewed and agreed with social work international relations teacher documentation on this date. Edilia Fernández, SENIOR GAME DESIGNER STOCK PREPARER
[2020-01-01 17:58] VITALS: BP 105/66; PULSE 80
[2020-01-01] MEDS: LORazepam 0.5 MG Tablet PO (19:59)
[2020-01-01] MEDS: traZODone 100 MG Tablet PO (23:01)
[2020-01-02 04:41] VITALS: BP 129/62; PULSE 92
[2020-01-02] MEDS: DULoxetine Hcl 60 MG Capsule PO (04:41)
[2020-01-02] MEDS: hydroCHLOROthiazide 25 MG Tablet PO (04:41)
[2020-01-02] MEDS: Metoprolol Tartrate 50 MG Tablet PO ×2 (04:41→17:29)
[2020-01-02] MEDS: Gabapentin 100 MG Capsule 200 MG PO ×3 (04:42→21:07)
[2020-01-02] MEDS: Acetaminophen 500 MG Tablet 1000 MG PO ×2 (04:42→16:02)
[2020-01-02] MEDS: Lisinopril 40 MG Tablet PO (04:42)
[2020-01-02] MEDS: Pantoprazole Sodium 40 MG Tablet PO ×2 (04:43→17:29)
[2020-01-02] MEDS: tiZANidine HCl 2 MG Tablet PO ×3 (04:45→21:07)
[2020-01-02] MEDS: Magnesium Hydroxide 30 ML UDC PO (04:45)
[2020-01-02] MEDS: Senna/Docusate Sodium 1 Tablet PO ×2 (04:45→17:29)
--- NOTE | 2020-01-02 07:13 | MDS.RN ---
Information for the mds was obtained from review of the clinical record, interview of resident, staff, and direct observation of resident's care.
[2020-01-02] MEDS: Menthol/Lanolin/Calamine/Znox 113 GM Tube 1 APPLIC TOPICAL (07:18)
[2020-01-02] MEDS: Iron Polysaccharide Complex 150 MG CAPSULE PO (08:31)
--- NOTE | 2020-01-02 10:35 | NURSING ---
PT REFUSED TEDHOSE.
[2020-01-02 13:33] VITALS: BP 117/51; PULSE 72; RESP 16; TEMP 36.9; O2SAT 96
[2020-01-02 17:29] VITALS: BP 117/51; PULSE 72
[2020-01-02] MEDS: LORazepam 0.5 MG Tablet PO (17:29)
[2020-01-02 21:10] VITALS: PULSE 82; RESP 16; O2SAT 98
[2020-01-02] MEDS: traZODone 100 MG Tablet PO (22:45)
[2020-01-03] MEDS: Menthol/Lanolin/Calamine/Znox 113 GM Tube 1 APPLIC TOPICAL ×2 (05:47→21:05)
[2020-01-03 05:48] VITALS: BP 135/93; PULSE 105
[2020-01-03] MEDS: Metoprolol Tartrate 50 MG Tablet PO ×2 (05:48→17:43)
[2020-01-03] MEDS: Gabapentin 100 MG Capsule 200 MG PO ×3 (05:48→21:02)
[2020-01-03] MEDS: Pantoprazole Sodium 40 MG Tablet PO ×2 (05:48→17:44)
[2020-01-03] MEDS: Senna/Docusate Sodium 1 Tablet PO ×2 (05:48→17:44)
[2020-01-03] MEDS: Magnesium Hydroxide 30 ML UDC PO (05:48)
[2020-01-03] MEDS: Lisinopril 40 MG Tablet PO (05:48)
[2020-01-03] MEDS: DULoxetine Hcl 60 MG Capsule PO (05:48)
[2020-01-03] MEDS: hydroCHLOROthiazide 25 MG Tablet PO (05:48)
[2020-01-03] MEDS: tiZANidine HCl 2 MG Tablet PO ×3 (05:51→21:01)
[2020-01-03] MEDS: Iron Polysaccharide Complex 150 MG CAPSULE PO (08:22)
[2020-01-03] MEDS: LORazepam 0.5 MG Tablet PO (13:14)
[2020-01-03 14:10] VITALS: BP 118/54; PULSE 72; RESP 16; TEMP 36.9; O2SAT 94
[2020-01-03 17:43] VITALS: BP 118/54; PULSE 75
[2020-01-03] MEDS: Acetaminophen 500 MG Tablet 1000 MG PO (18:27)
[2020-01-03 21:00] VITALS: PULSE 84; RESP 16; O2SAT 97
[2020-01-03] MEDS: traZODone 100 MG Tablet PO (22:58)
[2020-01-04 05:22] VITALS: BP 137/76; PULSE 84
[2020-01-04] MEDS: DULoxetine Hcl 60 MG Capsule PO (05:22)
[2020-01-04] MEDS: tiZANidine HCl 2 MG Tablet PO ×3 (05:22→21:12)
[2020-01-04] MEDS: Metoprolol Tartrate 50 MG Tablet PO ×2 (05:22→17:29)
[2020-01-04] MEDS: Gabapentin 100 MG Capsule 200 MG PO ×3 (05:23→21:12)
[2020-01-04] MEDS: Pantoprazole Sodium 40 MG Tablet PO ×2 (05:23→17:31)
[2020-01-04] MEDS: hydroCHLOROthiazide 25 MG Tablet PO (05:23)
[2020-01-04] MEDS: Lisinopril 40 MG Tablet PO (05:23)
[2020-01-04] MEDS: Senna/Docusate Sodium 1 Tablet PO ×2 (05:24→17:31)
[2020-01-04] MEDS: Magnesium Hydroxide 30 ML UDC PO (05:31)
[2020-01-04] MEDS: Menthol/Lanolin/Calamine/Znox 113 GM Tube 1 APPLIC TOPICAL ×2 (05:34→21:13)
[2020-01-04] MEDS: Iron Polysaccharide Complex 150 MG CAPSULE PO (08:06)
[2020-01-04] MEDS: Acetaminophen 500 MG Tablet 1000 MG PO (10:07)
[2020-01-04 10:11] VITALS: PULSE 80
[2020-01-04 14:29] VITALS: BP 150/86; PULSE 96; RESP 16; TEMP 36.7; O2SAT 97
[2020-01-04 17:29] VITALS: BP 150/86; PULSE 96
[2020-01-04] MEDS: LORazepam 0.5 MG Tablet PO (21:10)
[2020-01-04] MEDS: traZODone 100 MG Tablet PO (22:07)
[2020-01-05] MEDS: Acetaminophen 500 MG Tablet 1000 MG PO ×3 (01:25→22:14)
[2020-01-05] MEDS: Gabapentin 100 MG Capsule 200 MG PO ×3 (06:11→22:01)
[2020-01-05] MEDS: DULoxetine Hcl 60 MG Capsule PO (06:13)
[2020-01-05] MEDS: LORazepam 0.5 MG Tablet PO ×3 (06:13→22:15)
[2020-01-05] MEDS: hydroCHLOROthiazide 25 MG Tablet PO (06:13)
[2020-01-05] MEDS: Menthol/Lanolin/Calamine/Znox 113 GM Tube 1 APPLIC TOPICAL ×2 (06:15→22:00)
[2020-01-05 06:17] VITALS: BP 155/102; PULSE 105
[2020-01-05] MEDS: Metoprolol Tartrate 50 MG Tablet PO ×2 (06:17→17:23)
[2020-01-05] MEDS: Pantoprazole Sodium 40 MG Tablet PO ×2 (06:18→17:24)
[2020-01-05] MEDS: tiZANidine HCl 2 MG Tablet PO ×3 (06:19→22:01)
[2020-01-05] MEDS: Lisinopril 40 MG Tablet PO (06:19)
[2020-01-05] MEDS: Iron Polysaccharide Complex 150 MG CAPSULE PO (08:04)
[2020-01-05] MEDS: BENZOCAINE/MENTHOL 1 LOZENGE MUCOUS MEM ×2 (14:10→17:28)
[2020-01-05 14:31] VITALS: BP 111/67; PULSE 80; RESP 16; TEMP 36.6; O2SAT 97
--- NOTE | 2020-01-05 15:06 | NURSING ---
n/o for cepacol lozenges for cough
[2020-01-05 17:23] VITALS: BP 111/67; PULSE 80
[2020-01-05] MEDS: Senna/Docusate Sodium 1 Tablet PO (17:24)
[2020-01-05 21:48] VITALS: PULSE 93
[2020-01-05] MEDS: traZODone 100 MG Tablet PO (22:01)
[2020-01-06] MEDS: hydroCHLOROthiazide 25 MG Tablet PO (05:03)
[2020-01-06] MEDS: Senna/Docusate Sodium 1 Tablet PO ×2 (05:03→17:38)
[2020-01-06] MEDS: Acetaminophen 500 MG Tablet 1000 MG PO ×2 (05:03→19:59)
[2020-01-06] MEDS: DULoxetine Hcl 60 MG Capsule PO (05:03)
[2020-01-06] MEDS: Gabapentin 100 MG Capsule 200 MG PO ×3 (05:03→22:21)
[2020-01-06 05:04] VITALS: BP 143/83; PULSE 86
[2020-01-06] MEDS: Lisinopril 40 MG Tablet PO (05:04)
[2020-01-06] MEDS: Metoprolol Tartrate 50 MG Tablet PO ×2 (05:04→17:38)
[2020-01-06] MEDS: Pantoprazole Sodium 40 MG Tablet PO ×2 (05:04→17:38)
[2020-01-06] MEDS: Menthol/Lanolin/Calamine/Znox 113 GM Tube 1 APPLIC TOPICAL ×2 (05:08→22:22)
[2020-01-06] MEDS: tiZANidine HCl 2 MG Tablet PO ×3 (05:09→22:21)
[2020-01-06] MEDS: Iron Polysaccharide Complex 150 MG CAPSULE PO (08:03)
--- NOTE | 2020-01-06 08:05 | NURSING ---
ALL CARE GIVEN IN ROOM DUE TO PT IN PRECAUTIONS,WAITING FOR TEST RESULTS AT THIS TIME.
--- NOTE | 2020-01-06 08:06 | NURSING ---
PT REFUSED TEDHOSE. PT STATED I DONT LIKE THEM.
--- NOTE | 2020-01-06 08:57 | NURSING ---
machinist 2nd shift reported to DR Dolan that pt w/moist cough, feels like she getting cold. new order for cxr and resp panel. pt refusing cxr, explained the reason for one, pt still does not want it. ok with resp panel test though. pt placed in droplet precautions.
--- NOTE | 2020-01-06 12:16 | NURSING ---
Received call from lab that the patient is positive for influenza A. Statement repeated back.
--- NOTE | 2020-01-06 12:20 | NURSING ---
Received call from Dr. Dolan. Received order for Tamiflu 75mg BID for 5 days. Order repeated back, will add order.
[2020-01-06 12:45] VITALS: PULSE 92; RESP 18; O2SAT 97
[2020-01-06] MEDS: LORazepam 0.5 MG Tablet PO ×2 (13:47→22:21)
[2020-01-06 14:53] VITALS: BP 131/84; PULSE 96; RESP 18; TEMP 36.1; O2SAT 98
--- NOTE | 2020-01-06 16:31 | CASEMGMT ---
Social Work Pt tested positive for influenza and insurance approved pt with NRD 01/10. Spoke with pt and daughters about change in DC plans. Pt discouraged with news and wants to DC as soon as possibly, but understands she needs to be well prior to going DC. Will continue to follow. Edilia Fernández, WASTE MACHINE TENDER WOOL GRADER
--- NOTE | 2020-01-06 16:49 | NURSING ---
PT DAUGHTERS IN TO SEE HER. CAUGHT DAUGHTERS BEFORE GOING ALL THE WAY IN TO ROOM AND THIS NURSE ASKED THEM IF THEY WOULD PUT A GOWN,GLOVES AND MASK ON DUE TO PT HAVING INFLUENCE A. DAUGHTERS STATED THEY WOULD WEAR THE MASK AND GLOVES BUT REFUSED TO GOWN UP. THIS NURSE ASKED THEM TO PLEASE WASH THERE HANDS BEFORE LEAVING. DAUGHTERS AGREED. REPORTED TO JOSE HAQ
[2020-01-06 17:38] VITALS: BP 131/84; PULSE 96
[2020-01-06] MEDS: Oseltamivir Phosphate 30 MG Capsule PO (17:38)
[2020-01-06] MEDS: traZODone 100 MG Tablet PO (22:21)
--- NOTE | 2020-01-07 01:48 | NURSING ---
All care provided in room d/t patient on isolation precautions for Influenza.
[2020-01-07 05:45] LABS: Absolute Lymphocyte Count 0.88 X10^3/uL (0.83-4.51); Absolute Neutrophil Count 2.3 X10^3/uL (2.0-7.7); Basophil# 0.01 X10^3/uL; Basophil% 0.3 % (0-1); Eosinophil# 0.07 X10^3/uL; Eosinophils% 1.8 % (0-5); Hematocrit 30.9 % (37-47); Hemoglobin 9.8 g/dL (12.0-15.0); Lymphocyte # 0.88 X10^3/ul (4.0); Lymphocyte % 22.7 % (19-41); Mean Corp Hgb Conc 31.7 g/dL (32-36); Mean Corpuscular Hgb 27.2 pg (27.0-32.0); Mean Corpuscular Volume 85.8 fL (81-99); Monocyte# 0.62 X10^3/uL; NRBC Flagged by Analyzer 0 % (0-5); Neutrophil # 2.26 X10^3/uL (2.7-7.7); Neutrophil % 58.4 % (47-70); Platelet Count 299 K/mm3 (150-450); RBC Distribution Width CV 14.7 % (11.6-14.6); RBC Distribution Width SD 46.4 fl (35.1-43.9); White Blood Count 3.9 K/mm3 (4.4-11.0)
[2020-01-07] MEDS: Gabapentin 100 MG Capsule 200 MG PO ×3 (05:57→21:28)
[2020-01-07] MEDS: DULoxetine Hcl 60 MG Capsule PO (05:57)
[2020-01-07] MEDS: Pantoprazole Sodium 40 MG Tablet PO ×2 (05:57→17:40)
[2020-01-07] MEDS: tiZANidine HCl 2 MG Tablet PO ×3 (05:57→21:28)
[2020-01-07] MEDS: Oseltamivir Phosphate 30 MG Capsule PO ×2 (05:57→17:40)
[2020-01-07] MEDS: hydroCHLOROthiazide 25 MG Tablet PO (05:57)
[2020-01-07] MEDS: Senna/Docusate Sodium 1 Tablet PO ×2 (05:57→17:40)
[2020-01-07] MEDS: Lisinopril 40 MG Tablet PO (05:57)
[2020-01-07] MEDS: Acetaminophen 500 MG Tablet 1000 MG PO ×3 (05:58→21:29)
[2020-01-07 06:00] VITALS: BP 141/92; PULSE 90
[2020-01-07] MEDS: Metoprolol Tartrate 50 MG Tablet PO ×2 (06:00→17:40)
[2020-01-07] MEDS: Menthol/Lanolin/Calamine/Znox 113 GM Tube 1 APPLIC TOPICAL ×2 (06:02→21:28)
[2020-01-07 06:11] LABS: Anion Gap 7 (5-15); BUN 15 mg/dL (7-18); BUN/Creat Ratio 15.8 RATIO (10-20); Calcium,Total 8.6 mg/dL (8.5-10.1); Chloride 96 mmol/L (98-107); Creatinine, Serum 0.95 mg/dL (0.55-1.02); EST Glomerular Filtration Rate 60 mL/min (>60); Est Glom Filt Rate - Afr Amer 73 mL/min (>60); Estimated Creatinine Clearance 48.23 ml/min; Glucose 96 mg/dL (74-106); Potassium 3.8 mmol/L (3.5-5.1); Sodium Level 129 mmol/L (136-145)
[2020-01-07] MEDS: Iron Polysaccharide Complex 150 MG CAPSULE PO (07:26)
--- NOTE | 2020-01-07 07:29 | NURSING ---
PT REFUSED JACOB CHRISTIANSON.REPORTED TO JOSE HAQ
--- NOTE | 2020-01-07 11:58 | NURSING ---
ALL CARE GIVEN IN ROOM DUE TO PT IN PRECAUTIONS FOR INFLUENZA A.
[2020-01-07 15:04] VITALS: BP 85/56; PULSE 70; RESP 16; TEMP 36.7; O2SAT 96
[2020-01-07 15:51] VITALS: BP 112/65; PULSE 66
[2020-01-07 17:40] VITALS: BP 112/65; PULSE 66
[2020-01-07 19:37] VITALS: RESP 18
[2020-01-07] MEDS: traZODone 100 MG Tablet PO (21:28)
[2020-01-07] MEDS: LORazepam 0.5 MG Tablet PO (21:29)
--- NOTE | 2020-01-07 21:57 | NURSING ---
Patient remains in isolation for influenza A, all care provided in patients room.
[2020-01-08] MEDS: Menthol/Lanolin/Calamine/Znox 113 GM Tube 1 APPLIC TOPICAL ×2 (05:27→20:04)
[2020-01-08 05:28] VITALS: BP 142/83; PULSE 94
[2020-01-08] MEDS: Gabapentin 100 MG Capsule 200 MG PO ×3 (05:28→20:08)
[2020-01-08] MEDS: Pantoprazole Sodium 40 MG Tablet PO ×2 (05:28→17:13)
[2020-01-08] MEDS: DULoxetine Hcl 60 MG Capsule PO (05:28)
[2020-01-08] MEDS: LORazepam 0.5 MG Tablet PO (05:28)
[2020-01-08] MEDS: hydroCHLOROthiazide 25 MG Tablet PO (05:28)
[2020-01-08] MEDS: Metoprolol Tartrate 50 MG Tablet PO ×2 (05:28→17:13)
[2020-01-08] MEDS: tiZANidine HCl 2 MG Tablet PO ×3 (05:29→20:08)
[2020-01-08] MEDS: Oseltamivir Phosphate 30 MG Capsule PO ×2 (05:29→17:13)
[2020-01-08] MEDS: Lisinopril 40 MG Tablet PO (05:29)
[2020-01-08] MEDS: Iron Polysaccharide Complex 150 MG CAPSULE PO (09:05)
[2020-01-08] MEDS: Acetaminophen 500 MG Tablet 1000 MG PO ×2 (12:33→20:03)
[2020-01-08 14:33] VITALS: BP 136/88; PULSE 76; RESP 18; TEMP 36.8; O2SAT 96
[2020-01-08 17:13] VITALS: BP 136/88; PULSE 76
--- NOTE | 2020-01-08 18:47 | NURSING ---
Isolation order cancelled per Dr. Dolan
[2020-01-08 20:15] VITALS: PULSE 75; RESP 16; O2SAT 97
[2020-01-08] MEDS: Mirtazapine 15 MG Tablet 7.5 MG PO (20:15)
[2020-01-08] MEDS: traZODone 100 MG Tablet PO (22:26)
[2020-01-09 05:42] VITALS: BP 148/85; PULSE 78
[2020-01-09] MEDS: Gabapentin 100 MG Capsule 200 MG PO ×3 (05:42→20:36)
[2020-01-09] MEDS: DULoxetine Hcl 60 MG Capsule PO (05:42)
[2020-01-09] MEDS: Metoprolol Tartrate 50 MG Tablet PO ×2 (05:42→17:40)
[2020-01-09] MEDS: Oseltamivir Phosphate 30 MG Capsule PO ×2 (05:42→17:42)
[2020-01-09] MEDS: tiZANidine HCl 2 MG Tablet PO ×3 (05:42→20:38)
[2020-01-09] MEDS: Lisinopril 40 MG Tablet PO (05:42)
[2020-01-09] MEDS: Senna/Docusate Sodium 1 Tablet PO ×2 (05:42→17:41)
[2020-01-09] MEDS: Pantoprazole Sodium 40 MG Tablet PO ×2 (05:43→17:40)
[2020-01-09] MEDS: hydroCHLOROthiazide 25 MG Tablet PO (05:43)
[2020-01-09] MEDS: Menthol/Lanolin/Calamine/Znox 113 GM Tube 1 APPLIC TOPICAL ×2 (05:45→20:46)
--- NOTE | 2020-01-09 08:21 | DCINST_ITS ---
- Discharge Diagnoses Current Active Problems: Current Active and Chronic Problems Debility (Acute) Toxic encephalopathy (Acute) Opioid overdose (Acute) Chronic pain (Chronic) Opioid dependence (Chronic) Congestive heart failure (Chronic) Iron deficiency anemia (Chronic) Osteoarthritis (Chronic) Neuropathic pain (Chronic) Muscle spasm (Chronic) Insomnia (Chronic) Positive occult stool blood test (Acute) You will use the following diet at home:: No restrictions, Regular Your food should be the consistency of: Regular Your liquids should be the consistency of: Regular/Thin Discharge Activity: Return to Normal Activity, May Shower, Use Walker Weight Bearing Status: Weight bearing as tolerated Call your doctor if you observe: Fever of 101 or Higher, Inability to urinate, Inability to have a bowel movement, Shortness of breath, Chest pain, Uncontrolled pain Allergies/Adverse Reactions: Allergies No Known Allergies Allergy (Verified 12/19/19 16:26) Medications to take at Discharge Duloxetine HCl 60 mg PO DAILY 11/23/18 Gabapentin [Neurontin] 200 mg PO TID 11/23/18 Tizanidine HCl 2 mg PO TID 11/23/18 traZODone [Desyrel] 100 mg PO QHS PRN PRN 11/23/18 Lisinopril/Hydrochlorothiazide [Lisinopril-Hctz 20-12.5 mg Tab] 2 tab PO DAILY 12/19/19 Iron Polysaccharide Complex [Ferrex 150] 150 mg PO DAILYCM 12/23/19 Lorazepam [Ativan] 0.5 mg PO Q8H PRN PRN 3 Days #9 tab 12/23/19 Pantoprazole Sodium [Protonix] 40 mg PO DAILY 12/23/19 Acetaminophen [Tylenol] 1,000 mg PO Q6H PRN PRN tablet 01/09/20 Hydrochlorothiazide [Hctz] 25 mg PO DAILY tablet 01/09/20 Metoprolol Tartrate [Lopressor (beta pa)] 50 mg PO BID #60 tab 01/09/20 Mirtazapine [Remeron] 7.5 mg PO QHS #30 tab 01/09/20 Potassium Chloride [K-Dur] 20 meq PO BIDCM #60 tab 01/09/20 The following prescriptions were given: Potassium Chloride [K-Dur] 20 meq PO BIDCM #60 tab Transmission Status: Pending to [facility]30 Metoprolol Tartrate [Lopressor (beta pa)] 50 mg PO BID #60 tab Transmission Status: Pending to [facility]30 Mirtazapine [Remeron] 7.5 mg PO QHS #30 tab Transmission Status: Pending to [facility]30 Primary Care Physician: Erick Christensen III, MD [Primary Care Provider] - Please follow up with your Primary Care Physician in: 1 week. Test Results: Test results from this visit will be discussed in further detail at your follow- up appointment, if applicable. Proposed Discharge Date: 01/10/20
--- NOTE | 2020-01-09 08:23 | DS.PCM_ITS ---
Discharge Date and Diagnosis - Problem List Patient Problems: Active and Suspected Problems Debility (Acute) Toxic encephalopathy (Acute) Opioid overdose (Acute) Positive occult stool blood test (Acute) Date of Admission: 12/23/19 Date of Discharge: 01/10/20 - Primary Discharge Diagnosis Active and Suspected Problems Debility (Acute) Toxic encephalopathy (Acute) Opioid overdose (Acute) Positive occult stool blood test (Acute) - Secondary Discharge Diagnosis Chronic Problems Chronic pain (Chronic) Opioid dependence (Chronic) Congestive heart failure (Chronic) Iron deficiency anemia (Chronic) Osteoarthritis (Chronic) Neuropathic pain (Chronic) Muscle spasm (Chronic) Insomnia (Chronic) Chronic pain disorder (Chronic) Hypertension (Chronic) Anxiety and depression (Chronic) Right foot drop (Chronic) Chronic anemia (Chronic) Hyponatremia (Chronic) Hospital Course and Treatment Imaging Results: 12/23/19 18:41 Diet: Regular Diet Type of Dietary Supplement:: [place] Breakfast Clinical Impression(s) from Imaging Studies Chest X-Ray 12/23/19 18:09 IMPRESSION: Hyperexpanded lungs with chronic interstitial changes, no superimposed acute pulmonary process, or significant interval change Electronically Signed: Jovi Carrion MD at 18:26 EST , Service support , KUB X-Ray 12/26/19 08:55 IMPRESSION: No acute abnormality is seen. Electronically Signed: Avery Pabon at 9:36 EST , Service support , Operations: None Procedures: None Summary of Care Provided: The patient is a 79 year old Female with below past medical history hospitalized for toxic encephalopathy secondary to morphine overdose, complicated by acute kidney injury, rhabdomyolysis, acute on chronic iron deficiency anemia, hypokalemia, hypomagnesemia, admitted to TCU with debility, here for rehabilitation, strengthening, prior to discharge home alone. On TCU, Mirtazapine 7.5MG at bedtime added for appetite loss, consider stopping as outpatient. 01/06/2020 Resident tested positive for influenza A, treated with Tamiflu. Discharge home alone, Home Health Care for PT/OT. Resident would benefit from home health due to toxic encephalopathy. Patient Problems: Active and Suspected Problems Debility (Acute) Toxic encephalopathy (Acute) Opioid overdose (Acute) Positive occult stool blood test (Acute) - Physical Exam Vitals/I&O's: Vital Signs Temp Pulse Resp BP Pulse Ox 98.2 F 78 16 148/85 H 97 01/08/20 14:33 01/09/20 05:42 01/08/20 20:15 01/09/20 05:42 01/08/20 20:15 Oxygen Delivery Method Room Air Weight: 62.284 kg Body Mass Index (BMI) 24.8 Finger Stick Blood Glucose 135 Intake and Output for Last 24 Hours 01/07/20 01/08/20 01/09/20 23:59 23:59 23:59 Intake Total 1060 / 1060 360 / 360 120 / 120 Balance 1060 / 1060 360 / 360 120 / 120 Microbiology Past 72 Hours 01/06/20 08:58 Mucosa - Nasopharyngeal Respiratory Panel (PCR) - Final Influenza A (Subtype H1) Current Medications Acetaminophen (Tylenol) 1,000 mg PO Q6H PRN PRN PRN Reason: Pain Score 1-10/10 Last Admin: 01/08/20 20:03 Dose: 1,000 mg Documented by: Bisacodyl (Dulcolax) 10 mg PO DAILY PRN PRN Reason: Constipation Calamine/Phenol (Calmoseptine Ointment) 1 applic TOPICAL 0600,2200 [facility]; Protocol Last Admin: 01/09/20 05:45 Dose: 1 applicatio Documented by: Duloxetine HCl (Cymbalta) 60 mg PO DAILY [facility] Last Admin: 01/09/20 05:42 Dose: 60 mg Documented by: Gabapentin (Neurontin) 200 mg PO TID [facility] Last Admin: 01/09/20 05:42 Dose: 200 mg Documented by: Hydrochlorothiazide (Hctz) 25 mg PO DAILY [facility] Last Admin: 01/09/20 05:43 Dose: 25 mg Documented by: Hydrocortisone (Hytone) 1 applic RECTAL BID PRN PRN; Protocol PRN Reason: APPLY TO RECTAL AREA Hydrocortisone Acetate (Anusol Hc) 25 mg RECTAL BID PRN PRN Reason: Hemorrhoids Lidocaine/Diphenhydr/Alum/Mg/Simeth () 5 ml PO Q3H PRN PRN PRN Reason: MOUTH IRRITATION Last Admin: 02/04/20 23:29 Dose: 5 ml Documented by: Lisinopril (Zestril) 40 mg PO DAILY [facility] Last Admin: 01/09/20 05:42 Dose: 40 mg Documented by: Lorazepam (Ativan) 0.5 mg PO Q8H PRN PRN PRN Reason: ANXIETY/AGITATION Last Admin: 01/08/20 05:28 Dose: 0.5 mg Documented by: Magnesium Hydroxide (Milk Of Magnesia) 30 ml PO DAILY [facility] Last Admin: 01/09/20 05:43 Dose: Not Given Documented by: Metoprolol Tartrate (Lopressor (Beta Preston)) 50 mg PO BID [facility] Last Admin: 01/09/20 05:42 Dose: 50 mg Documented by: Mirtazapine (Remeron) 7.5 mg PO QHS [facility] Last Admin: 01/08/20 20:15 Dose: 7.5 mg Documented by: Multi-Ingredient Cream (Eucerin) 1 applic TOPICAL QHS [facility]; Protocol Last Admin: 01/08/20 20:04 Dose: 1 applicatio Documented by: Oseltamivir Phosphate (Tamiflu) 30 mg PO BID [facility] Stop: 01/11/20 06:01 Last Admin: 01/09/20 05:42 Dose: 30 mg Documented by: Pantoprazole Sodium (Protonix) 40 mg PO BID [facility] Last Admin: 01/09/20 05:43 Dose: 40 mg Documented by: Polyethylene Glycol (Miralax) 17 gm PO DAILY [facility] Last Admin: 01/09/20 05:43 Dose: Not Given Documented by: [facility] Admin: 01/08/20 09:05 Dose: 150 mg Documented by: Pot[facility] Ch[facility] ([facility]) [facility] Last Admin: 01/08/20 17:12 Dose: 20 meq Documented by: Senna/Docusate Sodium (Senokot-S, Monique-Colace) 1 tablet PO BID [facility] Last Admin: 01/09/20 05:42 Dose: 1 tablet Documented by: Simethicone (Mylicon) 80 mg PO TIDPC PRN PRN Reason: Gas Throat Lozenges (Cepacol Sore Throat Lozenge) 1 lozenge MUCOUS MEM Q2H PRN PRN PRN Reason: COUGH Last Admin: 01/05/20 17:28 Dose: 1 lozenge Documented by: Tizanidine HCl (Zanaflex) 2 mg PO TID [facility] Last Admin: 01/09/20 05:42 Dose: 2 mg Documented by: Trazodone HCl (Desyrel) 100 mg PO QHS [facility] Last Admin: 01/08/20 22:26 Dose: 100 mg Documented by: Discharge Diet: No Restrictions Discharge Activity: Return to Normal Activity, May Shower, Use Walker Weight Bearing Status: Weight bearing as tolerated Call your doctor if you observe: Fever of 101 or Higher, Inability to urinate, Inability to have a bowel movement, Shortness of breath, Chest pain, Uncontrolled pain Home Medications: Medications to take at Discharge Duloxetine HCl 60 mg PO DAILY 11/23/18 Gabapentin [Neurontin] 200 mg PO TID 11/23/18 Tizanidine HCl 2 mg PO TID 11/23/18 traZODone [Desyrel] 100 mg PO QHS PRN PRN 11/23/18 Lisinopril/Hydrochlorothiazide [Lisinopril-Hctz 20-12.5 mg Tab] 2 tab PO DAILY 12/19/19 Iron Polysaccharide Complex [Ferrex 150] 150 mg PO DAILYCM 12/23/19 Lorazepam [Ativan] 0.5 mg PO Q8H PRN PRN 3 Days #9 tab 12/23/19 Pantoprazole Sodium [Protonix] 40 mg PO DAILY 12/23/19 Acetaminophen [Tylenol] 1,000 mg PO Q6H PRN PRN tablet 01/09/20 Hydrochlorothiazide [Hctz] 25 mg PO DAILY tablet 01/09/20 Metoprolol Tartrate [Lopressor (beta preston)] 50 mg PO BID #60 tab 01/09/20 Mirtazapine [Remeron] 7.5 mg PO QHS #30 tab 01/09/20 Potassium Chloride [K-Dur] 20 meq PO BIDCM #60 tab 01/09/20 Following Prescrptions Were Given to Patient: Potassium Chloride [K-Dur] 20 meq PO BIDCM #60 tab Transmission Status: Pending to [facility] Metoprolol Tartrate [Lopressor (beta preston)] 50 mg PO BID #60 tab Transmission Status: Pending to [facility] #30 Mirtazapine [Remeron] 7.5 mg PO QHS #30 tab Transmission Status: Pending to [facility]30 Primary Care Physician: Erick Christensen III, MD [Primary Care Provider] - Please follow up with your Primary Care Physician in: 1 week. Disposition: Home with Home Health Minutes spent on discharge:: 35 Patient Condition:: Good Medical Necessity - Tobacco Use Smoking Status: Never smoker Tobacco Use: Non-smoker Meaningful Use Info Meaningful Use Diagnoses (Choose all that apply): None applicable
--- NOTE | 2020-01-09 08:23 | CASEMGMT ---
Social Work Pt is out of isolation precaution. Spoke with pt, pt choosing to DC 01/10/20. Pt requesting [facility]-PT/OT. No DME needs. Iman Hopkins,social work education intern Edilia Fernández, PRINTING PRESS OPERATOR DIRECTOR RETIREMENT
[2020-01-09] MEDS: Iron Polysaccharide Complex 150 MG CAPSULE PO (09:07)
[2020-01-09 09:45] VITALS: PULSE 65; RESP 18; O2SAT 95
--- NOTE | 2020-01-09 10:29 | CASEMGMT ---
Social Work Reviewed and agreed with social work contracts intern documentation. Edilia Fernández, CLOTH PRINTING BACK TENDER HOTEL CLERK
[2020-01-09] MEDS: Acetaminophen 500 MG Tablet 1000 MG PO (11:21)
--- NOTE | 2020-01-09 13:33 | MDS.RN ---
Pain interview for abril 01/10/20 completed.
[2020-01-09 14:17] VITALS: BP 134/86; PULSE 78; RESP 18; TEMP 36.6; O2SAT 96
[2020-01-09 17:40] VITALS: BP 134/86; PULSE 78
[2020-01-09] MEDS: Mirtazapine 15 MG Tablet 7.5 MG PO (20:36)
[2020-01-09] MEDS: traZODone 100 MG Tablet PO (22:18)
[2020-01-10 05:25] VITALS: BP 135/77; PULSE 71
[2020-01-10] MEDS: Senna/Docusate Sodium 1 Tablet PO (05:25)
[2020-01-10] MEDS: Oseltamivir Phosphate 30 MG Capsule PO (05:25)
[2020-01-10] MEDS: Lisinopril 40 MG Tablet PO (05:25)
[2020-01-10] MEDS: hydroCHLOROthiazide 25 MG Tablet PO (05:25)
[2020-01-10] MEDS: Metoprolol Tartrate 50 MG Tablet PO (05:25)
[2020-01-10] MEDS: Gabapentin 100 MG Capsule 200 MG PO (05:26)
[2020-01-10] MEDS: DULoxetine Hcl 60 MG Capsule PO (05:26)
[2020-01-10] MEDS: Pantoprazole Sodium 40 MG Tablet PO (05:26)
[2020-01-10] MEDS: tiZANidine HCl 2 MG Tablet PO (05:28)
[2020-01-10] MEDS: Iron Polysaccharide Complex 150 MG CAPSULE PO (07:55)
[2020-01-10 08:22] VITALS: BP 125/74; PULSE 80; RESP 20; TEMP 36.7; O2SAT 97
[2020-01-10 10:00] VITALS: PULSE 77; RESP 18; O2SAT 97
--- NOTE | 2020-01-10 16:06 | CASEMGMT ---
Social Work Reviewed and agreed with social work rn internship documentation on this date. Edilia Fernández, SENIOR SUPPORT ENGINEER NAVAL SURFACE FIRE SUPPORT PLANNER
--- NOTE | 2020-01-13 16:05 | CASEMGMT ---
Social Work Reviewed and agreed with social work programming intern documentation on this date. Edilia Fernández, BRAILLE TEACHER DOUBLE CORNER CUTTER
== END 2020-01-10 12:55 | disposition home health service (06) | DRG 93 ==
PROVIDERS: Admitting Provider Family Medicine Geriatric Medicine; PCP Family Medicine; Referring Provider Family Medicine Geriatric Medicine; Visit Provider Family Medicine Geriatric Medicine
DX: G92 Toxic encephalopathy (principal); T40.2X1D Poisoning by other opioids, accidental (unintentional), subsequent encounter; F32.9 Major depressive disorder, single episode, unspecified; I50.9 Heart failure, unspecified; I11.0 Hypertensive heart disease with heart failure; K64.9 Unspecified hemorrhoids; D50.9 Iron deficiency anemia, unspecified; F41.9 Anxiety disorder, unspecified; K21.9 Gastro-esophageal reflux disease without esophagitis; G89.29 Other chronic pain; M19.90 Unspecified osteoarthritis, unspecified site; M21.371 Foot drop, right foot; J10.1 Influenza due to other identified influenza virus with other respiratory manifestations; Z79.891 Long term (current) use of opiate analgesic
CPT/HCPCS: 36415; 71046; 74018; 80048; 85025; 87633; 97110; 97116; 97162; 97166; 97530; 97535; 97802

== ENCOUNTER 2020-04-11 20:46 | Inpatient (IN) | payer MEDICARE, SELFPAY ==
[2019-12-23 17:52] VITALS: BMI 24.8
[2020-04-11 20:49] VITALS: BP 151/106; PULSE 136; RESP 16; TEMP 37.2; O2SAT 97; BMI 25.3
--- NOTE | 2020-04-11 21:02 | RAD_ITS ---
STUDY: X-RAY - PELVIS AND LEFT HIP REASON FOR EXAM: Female, 79 years old. FALL, LEFT HIP PAIN TECHNIQUE: 3 views of the pelvis and hip. COMPARISON: 12/19/2019. FINDINGS: There is generalized osteopenia. There is a acute left femoral neck fracture. There is superior migration of the distal femur. There is soft tissue edema/hematoma. . 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 There are degenerative changes of the lumbar spine with levoscoliosis partially included on the [id number]. RAD/HIP, UNI W/ Pelvis 2-3 Views IMPRESSION: acute left femoral neck fracture. There is superior migration of the distal femur. . Soft tissue edema/hematoma Generalized osteopenia Total right hip prosthesis Degenerative changes lumbar spine with levoscoliosis partially included on the [id number] Electronically Signed: Chico Gore, at 21:43 EDT Tel , Service support ,
--- NOTE | 2020-04-11 21:02 | RAD_ITS ---
STUDY: X-RAY CHEST REASON FOR EXAM: Female, 79 years old. FALL, LEFT HIP PAIN TECHNIQUE: Portable chest COMPARISON: 12/23/2019. FINDINGS: There is stable hiatal hernia. There is focal 1.5 cm left basilar opacity. Old right rib fractures. Degenerative changes thoracic and lumbar spine with lumbar spine levoscoliosis.. There is no demonstrated pleural abnormality. Normal size heart. Normal mediastinum and patricia. Normal visualized pulmonary arteries. Normal visualized aortic arch and descending thoracic aorta. There are old right rib fractures. There is no demonstrated abnormality of the visualized soft tissue structures of the upper abdomen. RAD/Chest 1 View (Portable) IMPRESSION: Stable hiatal hernia Focal 1.5 cm left basilar opacity atelectasis cannot exclude pulmonary nodule; this can be further evaluated with CT Old right rib fractures Degenerative changes thoracic and lumbar spine. Lumbar spine levoscoliosis Old right rib fractures Electronically Signed: Chico Gore, at 21:51 EDT Tel , Service support ,
[2020-04-11] MEDS: fentaNYL 100 MCG/2 ML Ampul 50 MCG IV (21:11)
[2020-04-11 21:16] LABS: Absolute Lymphocyte Count 0.28 X10^3/uL (0.83-4.51); Absolute Neutrophil Count 13.8 X10^3/uL (2.0-7.7); Basophil# 0.04 X10^3/uL; Basophil% 0.3 % (0-1); Eosinophil# 0.13 X10^3/uL; Eosinophils% 0.8 % (0-5); Hematocrit 28.4 % (37-47); Hemoglobin 9.1 g/dL (12.0-15.0); Lymphocyte # 0.28 X10^3/ul (4.0); Lymphocyte % 1.8 % (19-41); Mean Corpuscular Hgb 27.2 pg (27.0-32.0); Monocyte# 0.97 X10^3/uL; Monocyte% 6.3 % (0-10); NRBC Flagged by Analyzer 0 % (0-5); Neutrophil # 13.83 X10^3/uL (2.7-7.7); Neutrophil % 90.1 % (47-70); POSITIVE DIFFERENTIAL YES; Platelet Count 303 K/mm3 (150-450); RBC Distribution Width CV 14.3 % (11.6-14.6); RBC Distribution Width SD 44.2 fl (35.1-43.9); Red Blood Count 3.34 M/mm3 (4.2-5.4); White Blood Count 15.4 K/mm3 (4.4-11.0)
[2020-04-11 21:26] LABS: Anion Gap 7 (5-15); BUN 19 mg/dL (7-18); BUN/Creat Ratio 14.4 RATIO (10-20); Chloride 92 mmol/L (98-107); Creatinine, Serum 1.32 mg/dL (0.55-1.02); EST Glomerular Filtration Rate 41 mL/min (>60); Est Glom Filt Rate - Afr Amer 50 mL/min (>60); Estimated Creatinine Clearance 34.71 ml/min; Glucose 241 mg/dL (74-106); Sodium Level 126 mmol/L (136-145)
[2020-04-11 21:27] LABS: Differential Indicated SCAN CRITERIA MET
--- NOTE | 2020-04-11 21:28 | ED.DCSUM_ITS ---
- ER Visit Summary Date of Service: 04/11/20 Chief Complaint: Left hip injury History of Present Illness: The patient is a 79 F who presents with an injury to the left hip. She states that she was walking and tripped on her walker. She fell onto her left hip. No head trauma or LOC. She has pain to the left hip. It is worse with movement. She is on no blood thinning medications. She states she has had a previous right hip fracture with repair at [facility]. EMS was called and they gave 50 mcg of fentanyl in route. Physical Examination: Vital signs are reviewed. HEENT exam is atraumatic. Heart is tachycardic and regular rhythm without murmurs. Lungs are clear. A bdomen soft. Left hip exam reveals tenderness at the greater trochanter. There is shortening. She has no range of motion secondary to the increased amount of pain she is having. Distal pulses are equal. Neurologic exam is normal. Test Results: Left hip x-ray reveals a left femoral neck fracture. Chest x-ray shows a pulmonary nodule but no other acute findings. Hemoglobin is 9.1. White count 15.4. Creatinine 1.32. Sodium is 126 and glucose 241 Emergency Department Course and Treatment: Was given a dose of fentanyl for pa in. Patient was discussed with Dr. Hugo and he will see the patient tomorrow for surgery on Monday. Patient was discussed with Dr. Taylor for admission Treatment Plan: [] Disposition: Admit Impression: Left femoral neck fracture, hyponatremia This note was generated with [employer] dictation software. It may contain incorrect words, spelling, and punctuation that were not noted in review of the chart prior to signing ED Disposition - Plan for ED Patient: Referrals: Erick Christensen III, MD [Primary Care Provider] -
[2020-04-11 21:41] LABS: International Normalized Ratio 1.1; Prothrombin Time (Protime)PT. 13.4 SECONDS (11.7-14.9)
[2020-04-11 21:47] LABS: Differential Comment SCANNED
--- NOTE | 2020-04-11 22:07 | ED.RN ---
KEREN HESTER UPDATED ON PT STATUS.
--- NOTE | 2020-04-11 22:07 | ED.RN ---
KEREN HESTER'S PHONE # IS [phone]
[2020-04-11 22:20] VITALS: BP 159/103; PULSE 130; RESP 13; TEMP 36.9; O2SAT 97
[2020-04-11] MEDS: HYDROmorphone 0.5 MG/0.5 ML SYRINGE IV (22:38)
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
[2020-04-11 23:20] VITALS: BP 155/90; PULSE 109; RESP 18; TEMP 36.8; O2SAT 98
[2020-04-11 23:25] VITALS: BMI 24.5; BMI 24.6
[2020-04-12] VITALS (15 sets, daily range): BP systolic 77–128; BP diastolic 43–108; PULSE 105–133; RESP 16–20; TEMP 36.5–37.1; O2SAT 89–100
[2020-04-12] MEDS: 0.9% Normal Saline 1,000 ML 100 ML IV ×2 (00:50→13:05)
[2020-04-12 00:57] LABS: Magnesium 1.5 mg/dL (1.6-2.6); Thyroid Stim Hormone (TSH) 1.21 uIU/mL (0.358-3.74)
[2020-04-12 01:00] LABS: Bedside Glucose 152 mg/dL (70-110)
[2020-04-12] MEDS: oxyCODONE 5 MG Tablet 10 MG PO ×3 (01:33→13:06)
[2020-04-12 02:06] LABS: Mucous, Urine 0 SEEN /hpf (<or=2+); Squamous Epithelial Cells - UA 0 SEEN /hpf (5-10)
[2020-04-12 02:09] LABS: Color, Urine Yellow (Yellow); Glucose, Dipstick Normal (Normal); Ketone-Dipstick Negative (Negative); Leukocyte Esterase-Dipstick 100 /ul (Negative); Nitrite-Dipstick Negative (Negative); Occult Blood-Urine 25 /ul (Negative); Protein-Dipstick 15 mg/dl (Negative); Urine Bilirubin Dipstick Negative (Negative); Urine Clarity Sl. Cloudy (Clear); Urine Urobilinogen Normal (Normal)
[2020-04-12 02:38] LABS: Red Blood Cells-Urine 0-5 SEEN /hpf (0-5); White Blood Cells 5-10 SEEN /hpf (0-5)
[2020-04-12 02:39] LABS: Bacteria 1+ /hpf (None Seen)
[2020-04-12] MEDS: HYDROmorphone 1 MG/ML Syringe IV (03:34)
[2020-04-12 06:14] LABS: Absolute Lymphocyte Count 0.73 X10^3/uL (0.83-4.51); Absolute Neutrophil Count 8.2 X10^3/uL (2.0-7.7); Basophil# 0.07 X10^3/uL; Basophil% 0.7 % (0-1); Eosinophil# 0.15 X10^3/uL; Eosinophils% 1.5 % (0-5); Hemoglobin 8.7 g/dL (12.0-15.0); Lymphocyte # 0.73 X10^3/ul (4.0); Lymphocyte % 7.5 % (19-41); Mean Corp Hgb Conc 32.2 g/dL (32-36); Mean Corpuscular Hgb 27.4 pg (27.0-32.0); Mean Corpuscular Volume 85.2 fL (81-99); Mean Platelet Vol. 9.6 fl (6.2-12.0); Monocyte# 0.61 X10^3/uL; Monocyte% 6.2 % (0-10); NRBC Flagged by Analyzer 0 % (0-5); Neutrophil # 8.16 X10^3/uL (2.7-7.7); Neutrophil % 83.6 % (47-70); Platelet Count 278 K/mm3 (150-450); RBC Distribution Width CV 14.4 % (11.6-14.6); Red Blood Count 3.17 M/mm3 (4.2-5.4); White Blood Count 9.8 K/mm3 (4.4-11.0)
[2020-04-12 06:26] LABS: Anion Gap 8 (5-15); BUN 16 mg/dL (7-18); BUN/Creat Ratio 16.2 RATIO (10-20); Calcium,Total 8.6 mg/dL (8.5-10.1); Chloride 92 mmol/L (98-107); Creatinine, Serum 0.99 mg/dL (0.55-1.02); EST Glomerular Filtration Rate 58 mL/min (>60); Est Glom Filt Rate - Afr Amer 70 mL/min (>60); Estimated Creatinine Clearance 46.28 ml/min; Glucose 118 mg/dL (74-106); Potassium 4.1 mmol/L (3.5-5.1); Sodium Level 127 mmol/L (136-145)
[2020-04-12] MEDS: tiZANidine HCl 2 MG Tablet PO ×3 (06:55→21:15)
[2020-04-12] MEDS: LORazepam 1 MG Tablet PO (06:57)
[2020-04-12 07:11] LABS: Bedside Glucose 117 mg/dL (70-110)
--- NOTE | 2020-04-12 07:30 | ECHOD_ITS ---
Reason For Study: Pre-op clearance Procedure This was a 2D Doppler, Color Flow transthoracic echocardiogram. Patient scanned supine due to hip fracture. Exam performed portable in patient room. Left Ventricle Normal LV size. Mild concentric left ventricular hypertrophy. Left ventricular systolic function is normal. The estimated ejection fraction is 55 %. No regional wall motion abnormalities noted. Right Ventricle Normal RV size. Normal systolic function. Atria Normal left atrium. Normal right atrium. Patent foramen ovale. Hypermobile atrial septum. Mitral Valve Mild diffuse mitral valve thickening. Mild-Moderate (1-2+) eccentric mitral valve insufficiency. Tricuspid Valve Normal tricuspid valve. Moderate (2+) tricuspid valve insufficiency. Pulmonary artery systolic pressure is 60 mmHg. Moderate pulmonary hypertension. Aortic Valve Normal aortic valve. Trisinus/trileaflet aortic valve. Pulmonic Valve Normal pulmonic valve. Great Vessels Normal aortic root. The pulmonary artery is normal size. Normal inferior vena cava. Pericardium/Pleural No pericardial effusion. Medication Performed a rapid injection of agitated mix of 9 cc saline and 1cc air to assess for atrial septal defect. MMode/2D Measurements & Calculations LVIDd: 3.6 cm IVSd: 1.5 cm Ao root diam: 3.5 cm LVIDs: 2.7 cm LVPWd: 1.2 cm RVDd: 3.5 cm FS: 25.3 % LAV(MOD-bp): 40.6 ml LVAd ap4: 20.1 cm2 SV(MOD-sp4): 17.1 ml LAV(MOD-bp) Indexed: 22.3 ml/m2 EDV(MOD-sp4): 47.0 ml LAV(MOD-sp2): 39.8 ml EDV(sp4-el): 48.0 ml LAV(MOD-sp4): 41.0 ml LVAs ap4: 15.3 cm2 ESV(MOD-sp4): 29.8 ml ESV(sp4-el): 30.4 ml EF(MOD-sp4): 36.5 % EF(sp4-el): 36.7 % SV(sp4-el): 17.6 ml LA A4 area: 16.6 cm2 LA dimension(2D): 2.4 cm RA A4 area: 13.6 cm2 Doppler Measurements & Calculations MV E max laquita: 110.1 cm/sec Ao V2 max: 134.2 cm/sec LV V1 max: 104.9 cm/sec Ao max P.2 mmHg LV V1 max P.4 mmHg PA V2 max: 94.0 cm/sec TR max laquita: 363.9 cm/sec TR max P.0 mmHg Interpretation Summary Normal LV size. Mild concentric left ventricular hypertrophy. Left ventricular systolic function is normal. The estimated ejection fraction is 55 %. Pulmonary artery systolic pressure is 60 mmHg. Moderate pulmonary hypertension. Hypermobile atrial septum. Patent foramen ovale. Ordering Physician: Bakari Larson Referring Physician: KELLEY Christensen M.D. Performed By: Sharon Ryaa RDCS
--- NOTE | 2020-04-12 07:54 | CPS ---
pt placed on 2 lpm....96%...nurse aware
--- NOTE | 2020-04-12 09:30 | RAD_ITS ---
STUDY: X-RAY - LEFT HAND, ATTENTION FINGER REASON FOR EXAM: Female, 79 years old. FALL. BRUISING OVER ENTIRE FINGER TECHNIQUE: 3 view(s) of the finger were obtained. COMPARISON: None. FINDINGS: Normal metacarpal head. Normal metacarpophalangeal joint. There is a fracture dislocation with comminuted appearance of the proximal middle phalanx and demonstrate displacement. Access Normal distal phalanx. There is mild degenerative arthrosis of the distal interphalangeal joint. RAD/Finger(s) Min 2 Views IMPRESSION: Proximal middle phalanx comminuted and displaced fractures above. Electronically Signed: Serge Jo DO at 13:23 EDT , Service support ,
--- NOTE | 2020-04-12 09:47 | CON.PCM_ITS ---
Reason for Consult Date of Consultation: 04/12/20 Reason for Consultation: Left hip pain History of Present Illness: The patient is a 79 year old F [who is a walker ambulator. She tripped yesterday on the wheel of her walker, fell and suffered a left hip fracture. She reports left hip pain and left small finger swelling and pain. X-ray of the left hip revealed a subcapital fracture.] ROS, PMHx, PSHx, Family Hx, Meds and allergies reviewed as per the intake H&P. Past Medical History Past Medical History (Chronic Problems): Chronic Problems Chronic pain (Chronic) Opioid dependence (Chronic) Congestive heart failure (Chronic) Iron deficiency anemia (Chronic) Osteoarthritis (Chronic) Neuropathic pain (Chronic) Muscle spasm (Chronic) Insomnia (Chronic) CKD (chronic kidney disease), stage III (Chronic) Chronic pain disorder (Chronic) Hypertension (Chronic) Anxiety and depression (Chronic) Right foot drop (Chronic) Chronic anemia (Chronic) Allergies morphine Adverse Reaction (Verified 04/11/20 23:27) delirium Home Medications: Ambulatory Orders Medication Instructions Recorded Duloxetine HCl 60 mg PO DAILY 11/23/18 Tizanidine HCl 2 mg PO TID 11/23/18 traZODone [Desyrel] 100 mg PO QHS 11/23/18 Lisinopril/Hydrochlorothiazide 1 tab PO DAILY 12/19/19 [Lisinopril-Hctz 20-12.5 mg Tab] Iron Polysaccharide Complex 150 mg PO BID 12/23/19 [Ferrex 150] Pantoprazole Sodium [Protonix] 40 mg PO DAILY 12/23/19 Acetaminophen [Tylenol] 1,000 mg PO Q6H PRN PRN tab 01/09/20 Mirtazapine [Remeron] 7.5 mg PO QHS #30 tab 01/09/20 Celecoxib [Celebrex] 100 mg PO DAILY 04/11/20 Hydrochlorothiazide [Hctz] 25 mg PO DAILY 04/11/20 Lorazepam 1 mg PO TID 04/11/20 Potassium Chloride [K-Dur] 20 meq PO DAILY 04/11/20 Surgical History: total hip arthroplasty - Right., tonsillectomy, - - History of extensive trauma with right hip pin and follow-up right total hip replacement. 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 Paternal Family History: Family History (Last Reviewed 12/19/19 @ 18:31 by SHEILA Parmar) Father Brain tumor Mother Gallbladder disease History Items: Cancer - Father with a history of brain cancer. Patient Problems: Active and Suspected Problems Closed left hip fracture (Acute) Hyperglycemia (Acute) - Physical Exam Vitals/I&O's: Vital Signs Temp Pulse Resp BP Pulse Ox 98.2 F 121 H 18 77/43 L 99 04/12/20 09:36 04/12/20 09:36 04/12/20 09:36 04/12/20 09:36 04/12/20 09:36 Oxygen Flow Rate (L/min) 2 Oxygen Delivery Method Nasal Cannula Weight: 156 lb 15.506 oz Body Mass Index (BMI) 24.5 Finger Stick Blood Glucose 135 Intake and Output for Last 24 Hours 04/10/20 04/11/20 04/12/20 23:59 23:59 23:59 Intake Total 300 / 300 Output Total 600 / 600 Balance -300 / -300 General: Alert, No apparent distress Extremities: Tenderness - Left hip. LLE shortened and externally rotated. LSF with swelling, ecchymosis and decreased ROM. Neurological: Neuro grossly intact Laboratory Results 04/11/20 21:05: WBC 15.4 H, RBC 3.34 L, Hgb 9.1 L, Hct 28.4 L, MCV 85.0, MCH 27 .2, MCHC 32.0, RDW Std Deviation 44.2 H, RDW Coeff of [place] 14.3, Plt Count 303, MPV 9.0, Immature Gran % (Auto) 0.700, Neut % (Auto) 90.1 H, Lymph % (Auto) 1.8 L, [place] % (Auto) 6.3, Eos % (Auto) 0.8, Baso % (Auto) 0.3, Absolute Neuts (auto) 13.8 H, Absolute Lymphs (auto) 0.28 L, Nucleated RBC % 0, Differential Comment SCANNED 04/11/20 21:05: PT 13.4, INR 1.1 04/11/20 21:05: Sodium 126 L, Potassium 4.0, Chloride 92 L, Carbon Dioxide 27.0, Anion Gap 7, BUN 19 H, Creatinine 1.32 H, Estim Creat Clear Calc 34.71, Est GFR (MDRD) Af Amer 50 L, Est GFR (MDRD) Non-Af 41 L, BUN/Creatinine Ratio 14.4, Glucose 241 H, Calcium 9.0 04/11/20 23:55: Magnesium 1.5 L, TSH 1.21 04/11/20 23:55: Blood Type A POSITIVE, Antibody Screen NEGATIVE 04/12/20 00:49: POC Glucose 152 H 04/12/20 01:55: Urine Color Yellow, Urine Clarity Sl. Cloudy, Urine pH 7.0, Ur Specific [place] 1.010, Urine Protein 15 H, Urine Glucose (UA) Normal, Urine Ketones Negative, Urine Occult Blood 25 H, Urine Nitrite Negative, Urine Bilirubin Negative, Urine Urobilinogen Normal, Ur Leukocyte Esterase 100 H, Urine RBC 0-5 SEEN, Urine WBC 5-10 SEEN, Ur Squamous Epith Cells 0 SEEN, Urine Bacteria 1+, Urine Mucus 0 SEEN 04/12/20 05:27: WBC 9.8, RBC 3.17 L, Hgb 8.7 L, Hct 27.0 L, MCV 85.2, MCH 27.4, MCHC 32.2, RDW Std Deviation 44.0 H, RDW Coeff of [place] 14.4, Plt Count 278, MPV 9.6, Immature Gran % (Auto) 0.500, Neut % (Auto) 83.6 H, Lymph % (Auto) 7.5 L, [place] % (Auto) 6.2, Eos % (Auto) 1.5, Baso % (Auto) 0.7, Absolute Neuts (auto) 8.2 H, Absolute Lymphs (auto) 0.73 L, Nucleated RBC % 0 04/12/20 05:27: Sodium 127 L, Potassium 4.1, Chloride 92 L, Carbon Dioxide 27.0, Anion Gap 8, BUN 16, Creatinine 0.99, Estim Creat Clear Calc 46.28, Est GFR (MDRD) Af Amer 70, Est GFR (MDRD) Non-Af 58 L, BUN/Creatinine Ratio 16.2, Glucose 118 H, Calcium 8.6 05/17/20 07:01: POC Glucose 117 H Current Medications Acetaminophen (Tylenol) 650 mg PO Q6H PRN PRN PRN Reason: Pain Score 1-10/Temp > 100.7 F Al Hydroxide/Mg Hydroxide (Mylanta Ii) 30 ml PO Q6H PRN PRN PRN Reason: Gastric Burning Albuterol Sulfate (Ventolin Aerosols) 2.5 mg INHALATION Q2H PRN PRN PRN Reason: Shortness of Breath/Wheezing Bisacodyl (Dulcolax) 10 mg PO DAILY PRN PRN PRN Reason: Constipation Dextrose (D50w Syringe) 0 gm IV X1 PRN; Protocol PRN Reason: Hypoglycemia Docusate Sodium (Colace) 200 mg PO BID PRN PRN PRN Reason: Constipation Duloxetine HCl (Cymbalta) 60 mg PO DAILY [facility] Glucagon () 1 mg IM .X1 PRN PRN Reason: Hypoglycemia Guaifenesin (Robitussin) 20 ml PO Q4H PRN PRN PRN Reason: COUGH Hydralazine HCl (Apresoline Iv) 10 mg IV Q4H PRN PRN PRN Reason: SBP > 160 Hydromorphone HCl (Dilaudid Inj) 1 mg IV Q4H PRN PRN PRN Reason: Pain Score 6-10/10 Last Admin: 04/12/20 03:34 Dose: 1 mg Documented by: Sodium Chloride () 1,000 mls @ 100 mls/hr IV .Q10H [facility] Last Admin: 04/12/20 00:50 Dose: 100 mls/hr Documented by: Insulin Human Lispro (Humalog Kwikpen (Bkc)) 0 unit SC ACHS [facility]; Protocol Last Admin: 04/12/20 07:02 Dose: Not Given Documented by: Lisinopril (Zestril) 20 mg PO DAILY [facility] Lorazepam (Ativan) 1 mg PO TID [facility] Last Admin: 04/12/20 06:57 Dose: 1 mg Documented by: Mirtazapine (Remeron) 7.5 mg PO QHS [facility] Ondansetron HCl (Zofran) 4 mg IV Q8H PRN PRN PRN Reason: NAUSEA/VOMITING Oxycodone HCl (Oxyir) 10 mg PO Q4H PRN PRN PRN Reason: Pain Score 4-5/10 Last Admin: 04/12/20 06:56 Dose: 10 mg Documented by: Pantoprazole Sodium (Protonix) 40 mg PO DAILY [facility] Polyethylene Glycol (Miralax) 17 gm PO DAILY [facility] Polysaccharide Iron Complex (Ferrex 150) 150 mg PO BID [facility] Potassium Chloride (K-Dur) 20 meq PO DAILYCM [facility] Prochlorperazine Edisylate (Compazine Iv) 5 mg IV Q4H PRN PRN PRN Reason: Breakthrough nausea/vomiting Sodium Chloride () 10 - 40 ml IV UD PRN PRN Reason: SALINE FLUSH Throat Lozenges (Cepacol Sore Throat Lozenge) 1 lozenge MUCOUS MEM Q2H PRN PRN PRN Reason: SORE THROAT Tizanidine HCl (Zanaflex) 2 mg PO TID [facility] Last Admin: 04/12/20 06:55 Dose: 2 mg Documented by: Trazodone HCl (Desyrel) 100 mg PO QHS PRN PRN PRN Reason: INSOMNIA Assessment/Plan All Active Problems Debility (Acute) Toxic encephalopathy (Acute) Opioid overdose (Acute) Positive occult stool blood test (Acute) Closed left hip fracture (Acute) Hyperglycemia (Acute) Hyponatremia (Acute) YRIS (acute kidney injury) (Acute) Rhabdomyolysis (Acute) Garden classification 4 fracture left hip Will plan on OR tomorrow for a hemiarthroploasty of the left hip. I reviewed with her potential risks, complications benefits and non-surgical options. She voiced full understanding and does wish to proceed. Left small finger contusion Will xray to r/o fracture.
[2020-04-12] MEDS: Iron Polysaccharide Complex 150 MG CAPSULE PO ×2 (09:59→21:15)
[2020-04-12] MEDS: Polyethylene Glycol 3350 17 GM PACKET PO (10:00)
[2020-04-12] MEDS: DULoxetine Hcl 60 MG Capsule PO (10:00)
[2020-04-12] MEDS: Pantoprazole Sodium 40 MG Tablet PO (10:00)
[2020-04-12 10:12] LABS: Magnesium 1.5 mg/dL (1.6-2.6); Phosphorus 2.6 mg/dL (2.5-4.9)
[2020-04-12] MEDS: 0.9% Normal Saline 1,000 ML 500 ML IV (10:14)
--- NOTE | 2020-04-12 10:15 | NURSING ---
Painful but pt is aware that BP is low. Dr. Larson aware and ordered bolus. see EMAR.
--- NOTE | 2020-04-12 10:22 | NURSING ---
Dr. Brooks just came in to see pt
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
[2020-04-12 12:00] LABS: Bedside Glucose 145 mg/dL (70-110)
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
--- NOTE | 2020-04-12 12:17 | EKG12_ITS ---
Test Reason : PRE OP Blood Pressure : / mmHG Vent. Rate : 117 BPM Atrial Rate : 117 BPM P-R Int : 150 ms QRS Dur : 094 ms QT Int : 324 ms P-R-T Axes : 051 -24 126 degrees QTc Int : 451 ms Sinus tachycardia Left ventricular hypertrophy with repolarization abnormality Abnormal ECG When compared with ECG of 19-DEC-2019 20:28, No significant change was found Confirmed by SERJIO MEADE, SHANIQUE ([id number]), video effects editor MICHELE CARUSO ([id number]) on 04/14/2020 3:47:59 PM Referred By: Brianda Taylor Confirmed By:SHANIQUE BASSETT MD
[2020-04-12] MEDS: Cephalexin 500 MG Capsule PO ×2 (16:33→21:15)
[2020-04-12] MEDS: HYDROmorphone 1 MG/ML Syringe 0.5 MG IV ×2 (16:33→21:08)
[2020-04-12] MEDS: Insulin Lispro 100 UNIT/ML INSULN.PEN SC (16:48)
[2020-04-12 17:05] LABS: Bedside Glucose 174 mg/dL (70-110)
[2020-04-12] MEDS: Mirtazapine 15 MG Tablet 7.5 MG PO (21:15)
[2020-04-12 23:21] LABS: Bedside Glucose 112 mg/dL (70-110)
[2020-04-13] VITALS (36 sets, daily range): BP systolic 84–154; BP diastolic 60–93; PULSE 79–130; RESP 16–18; TEMP 36.3–37.4; O2SAT 93–100; BMI 24.5; BMI 24.6
[2020-04-13] MEDS: 0.9% Normal Saline 1,000 ML 100 ML IV ×3 (00:46→23:05)
[2020-04-13] MEDS: HYDROmorphone 1 MG/ML Syringe 0.5 MG IV ×2 (02:59→07:47)
[2020-04-13 05:23] LABS: Absolute Lymphocyte Count 0.49 X10^3/uL (0.83-4.51); Absolute Neutrophil Count 6.1 X10^3/uL (2.0-7.7); Basophil# 0.05 X10^3/uL; Basophil% 0.7 % (0-1); Eosinophil# 0.25 X10^3/uL; Eosinophils% 3.4 % (0-5); Hematocrit 24.1 % (37-47); Hemoglobin 7.5 g/dL (12.0-15.0); Lymphocyte # 0.49 X10^3/ul (4.0); Lymphocyte % 6.6 % (19-41); Mean Corp Hgb Conc 31.1 g/dL (32-36); Mean Corpuscular Hgb 27.2 pg (27.0-32.0); Mean Corpuscular Volume 87.3 fL (81-99); Mean Platelet Vol. 9.6 fl (6.2-12.0); Monocyte# 0.49 X10^3/uL; Monocyte% 6.6 % (0-10); NRBC Flagged by Analyzer 0 % (0-5); Neutrophil % 82.4 % (47-70); POSITIVE DIFFERENTIAL YES; Platelet Count 196 K/mm3 (150-450); RBC Distribution Width CV 14.7 % (11.6-14.6); RBC Distribution Width SD 47.5 fl (35.1-43.9); Red Blood Count 2.76 M/mm3 (4.2-5.4); White Blood Count 7.4 K/mm3 (4.4-11.0)
[2020-04-13 05:26] LABS: Differential Indicated SCAN CRITERIA MET
[2020-04-13 05:31] LABS: International Normalized Ratio 1.2; Prothrombin Time (Protime)PT. 14.3 SECONDS (11.7-14.9)
[2020-04-13 05:32] LABS: Partial Thromboplast Time 27.7 Seconds (24.1-36.2)
[2020-04-13 05:35] LABS: Anion Gap 7 (5-15); BUN 21 mg/dL (7-18); BUN/Creat Ratio 17.6 RATIO (10-20); Calcium,Total 8.4 mg/dL (8.5-10.1); Chloride 98 mmol/L (98-107); Creatinine, Serum 1.19 mg/dL (0.55-1.02); EST Glomerular Filtration Rate 47 mL/min (>60); Est Glom Filt Rate - Afr Amer 56 mL/min (>60); Glucose 119 mg/dL (74-106); Potassium 4.1 mmol/L (3.5-5.1); Sodium Level 130 mmol/L (136-145)
[2020-04-13 06:22] LABS: Differential Comment SCANNED
[2020-04-13] MEDS: Cephalexin 500 MG Capsule PO ×2 (07:01→23:17)
[2020-04-13] MEDS: tiZANidine HCl 2 MG Tablet PO ×2 (07:01→23:17)
[2020-04-13 07:06] LABS: Bedside Glucose 96 mg/dL (70-110)
--- NOTE | 2020-04-13 09:33 | NURSING ---
daughter jenifer notified that pt is going to surgery and going to have a unit of blood this am.
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
--- NOTE | 2020-04-13 11:00 | CASEMGMT ---
Social Work Assessment Referral Date: 04/13/2020 Date of Assessment: 04/13/2020 Reason for consult: Hip Fracture Informant: ANTHONY Personal Status: SW met with pt to complete initial assessment. SW introduced self and role at [facility]. Pt is alert and orientated x3. Pt states that she lives alone in a one story home with three steps to enter with handrails. DME include cane and walker. Pt states that she was previously independent with ADLs, states no longer drives. Pt states that she doesn't have any family/friends nearby. Pt states that she has three daughters but they live in other areas ([facility] and [place]). PCP is Dr. Christensen and Pharmacy is [facility]. Substance Abuse Hx: Pt denied Mental Health Hx: Pt states history of depression, states she is currently taking medications. HHC: None SNF: None SW spoke with pt regarding discharge options for pt including home with HHC, outpatient therapy, or SNF. Pt states she prefers to return home at discharge. SW informed pt that SW Will follow up with pt after surgery to determine safe discharge plan for pt. Pt states understanding, denied additional needs or concerns at this time. Plan: AMY Zelaya [employer]INE, [employer] RE[employer]ISH[employer]
--- NOTE | 2020-04-13 12:07 | NURSING ---
pt left for surgery
--- NOTE | 2020-04-13 13:40 | HIP_PTH ---
PATIENT: NIA HAMILTON LOC: MS3 U#:[id number] AGE/SX: 79/F ROOM: DE310 RE04/11/[address]: Dr. Gal Matthews MD : [id number] BED: 1 DIS: 04/16/2020 SPEC #: [id number] RECD: 04/14/20 08:04 STATUS: SCOTT REQ #: [id number] SLAVA: 04/13/20 13:[address]: Cedric Hugo DEPT: SURGICAL PATHOLOGY RECD BY: Kit Nettles ENTERED: 04/14/20 09:27 SP TYPE: TOTAL HIP OTHR DR: MD Dr. Gal Brumfield MD Dr. Eric Lo, MD Dr. Frank A Cebul III, MD Tissues: Hip, NOS Procedures: Decalcification bone/plaque Surgery Specimen Level IV HEADER OPERATION: Left hip hemiarthroplasty PRE-OP DIAGNOSIS: Left femoral neck fracture TISSUE SUBMITTED: Bone and soft tissue left hip MICROSCOPIC DIAGNOSIS Bone and soft tissue, left hip, hemiarthroplasty: Femoral head and detached pieces of bone with a focal area of hemorrhage, clinically left femoral neck fracture. Fragments of fibroadipose tissue, fibroconnective tissue and reactive synovial tissue. JAMIL:travis 04/17/20 MICROSCOPIC DESCRIPTION Slides are reviewed. GROSS DESCRIPTION Received is one container labeled with the patient's name and designated bone and soft tissue left hip. The specimen consists of a femoral head measuring 4.5 x 4.5 x 3.5 cm. The articular surface is smooth. Resection margin is irregular and hemorrhagic. A small piece of soft tissue attached at the top of the femoral head measuring 1.5 x 1 x 0.3 cm. A detached piece of soft tissue is also noted measuring 1.5 x 1.5 x 1 cm. Also present in the container are multiple pieces of bone measuring in aggregate 6 x 6 x 2 cm. Air Vice Marshal sections are submitted in three cassettes as follows: 1 - soft tissue, 2 - detached pieces of bone after decalcification, 3 - femoral head after decalcification. / JAMIL:travis 04/14/20 TC:5 CPT: 94098, 23335
[2020-04-13] MEDS: Cefazolin 2 GM in 0.9% Normal Saline 100 ML IV (14:09)
--- NOTE | 2020-04-13 15:30 | RAD_ITS ---
STUDY: X-RAY - LEFT HAND, ATTENTION FIFTH FINGER REASON FOR EXAM: Female, 79 years old. Post splint. TECHNIQUE: 3 view(s) of the finger were obtained. COMPARISON: Left fifth digit, April 12, 2020. FINDINGS: Normal metacarpal head. Normal metacarpophalangeal joint. Normal proximal phalanx. Again seen is a displaced comminuted fracture of the fifth middle phalanx extending into the proximal interphalangeal joint. This appears unchanged. Alignment and appearance when compared to the previous study. Normal distal phalanx. Normal proximal interphalangeal joint. Normal distal interphalangeal joint. There is diffuse soft tissue swelling. A splint is seen along the palmar aspect of the finger. RAD/Finger(s) Min 2 Views IMPRESSION: 1. Status post splinting. There is no change in the alignment and position of the fracture when compared to the prior study of April 12, 2020. Electronically Signed: Yash Hernandez DO at 17:43 EDT Tel [phone], Service support ,
--- NOTE | 2020-04-13 15:42 | PCM.OPRPT ---
Report of Operation Date of Procedure: 04/13/20 Pre-Operative Diagnosis: Displaced subcapital fracture left hip. Comminuted fracture/ subluxation left small finger PIP joint Post-Operative Diagnosis: same Surgery/Procedure Performed:: 1. Cemented hemiarthroplasty left hip. 2. Closed reduction and splinting left small finger Description of Surgical Findings:: Primary Surgeon/Physician: Cedric Hugo supervisor hand silvering: Nathaniel Ji PA-C supervisor hand silvering: Pre-Operative Diagnosis: 1. Displaced subcapital fracture left hip 2. Comminuted fracture left small finger middle phalanx with subluxation of PIP joint Post-Operative Diagnosis: same Surgery/Procedure Performed: 1. Cemented Hemiarthroplasty left hip 2. Closed reduction and splinting LSF Estimated Blood Loss: 250 cc Specimen's Removed: bone Type of Anesthesia: general ASA Class: 3 Implants: [Rector size 4 Accolade C femur with 50 mm -3 bipolar head ] Surgical Indications: Patient has fracture of the [left ] hip. Patient was cleared from a medical standpoint. The risks of the surgery was discussed with the patient and family at length. Procedure Description: The patient was greeted in the preoperative area. The [left ] hip was marked with surgical marker and preoperative antibiotics administered. The patient was then taken to OR suite in stable condition. Once the patient was placed in the supine position on the operating room table and once adequate anesthesia was obtained the patient was then placed in the lateral decubitus position with the surgical hip facing the field. All bony prominences were well-padded. A commercial hip position was utilized. The appropriate extremity was then prepped and draped in usual sterile fashion. Ioban was placed on the skin. Surgical timeout was performed and surgery was commenced. Standard anterolateral approach to the hip was then performed incision was planned and carried out with a #10 blade. Dissection was then carried length of the incision to the IT band which was split proximally and distally. A Charnley retractor was then placed for soft tissue retraction exposing the gluteus medius. The hip was then approached through a transgluteal approach and dislocated through an anterior capsulectomy. The incarcerated femoral head was removed and measured on the back table. Findings are consistent with a femoral neck fracture. A femoral osteotomy was then created approximately 1 fingerbreadth above the lesser trochanter. No significant abnormality of the acetabulum is identified. Any remaining tissue or bone was removed from the acetabulum Attention was then turned to the femoral preparation. The hip was placed in the 90/90 position and a lateralizing box osteotome was utilized. Femoral starting awl was used followed by sequential broaching to the appropriate size. Excellent purchase was obtained with the stem no stem subsidence and excellent rotational stability was confirmed. A calcar reamer was then used in the trial head neck was placed on the broach. The hip was then located and taken through full range of motion flexion internal and external rotation as well as extension. Excellent stability was noted no impingement was identified of the components and leg lengths appear to be appropriate. The hip was at this point dislocated and the trial femoral components were removed. The final femoral stem was then implanted and impacted to the appropriate depth. Again excellent purchase was obtained no stem subsidence or rotational instability was noted. The hip was once again trialed and confirmation of leg length and stability was performed. Soft tissue tension also appeared to be appropriate. At this point the hip was redislocated and the trunnion was cleaned and dried meticulously in the appropriate size femoral head was placed on the clean dry trunnion using a 12/14 Mcelroy taper. The hip was once again relocated and again taken through full range of motion. Copious irrigation was performed. Anatomic closure of the gluteus medius and minimus was performed with #1 Vicryl [id number] type fashion followed by closure of the IT band with #1 Vicryl 0 Vicryl was utilized in subcutaneous tissue and surgical nanette were placed in the skin. A well-padded nonadherent dressing was applied. Patient was taken to PACU in stable condition. No complications were identified. Will follow standard postop protocol for hemiarthroplasty. Patient must use assistive device for ambulation for approximately 6 weeks of the gluteal musculature heals. A closed reduction maneuver with longitudinal traction was performed on the LSF. Thereafter, an aluma foam volar splint was applied. My nurse assistant, Mr. Ji, provided a vital role in this procedure. He assisted with positioning the patient. He held retractors and maneuvered the leg to provide optimal visualization during the procedure. He then closed the operative wound. He assisted in holding traction and applying the splint to the LSF. supervisor hand silvering: Nathaniel Ji Type of Anesthesia:: General Anesthesiologist: Ning Beend - Admit VTE Documentation VTE Present on Admission: No VTE Mechan Device Prophylaxis: SCD's, Thigh High JACOB Hose VTE Pharm Prophylaxis ordered?: Yes
--- NOTE | 2020-04-13 17:00 | RAD_ITS ---
STUDY: X-RAY - PELVIS AND LEFT HIP REASON FOR EXAM: Female, 79 years old. Postop. TECHNIQUE: 2 views of the pelvis and hip. COMPARISON: April 11, 2020. FINDINGS: There is a non-specific bowel gas pattern. Normal visualized soft tissue structures. Normal bilateral iliac wings, sacroiliac joints and visualized sacrum. Normal bilateral superior and inferior pubic rami. Normal pubic symphysis. Normal bilateral ischial tuberosities. Stable right artificial hip. There is now a left artificial hip. Prosthetic components are intact. There is no fracture or loosening from the underlying bone. No dislocation. There is air in the surrounding soft tissues with overlying skin clips. RAD/Hip Min 2 Views (Portable) IMPRESSION: Status post left hip replacement. Electronically Signed: Yash Hernandez DO at 17:44 EDT Tel [phone], Service support ,
[2020-04-13 18:20] LABS: Bedside Glucose 127 mg/dL (70-110)
[2020-04-13] MEDS: 0.9% Saline Lock 10 ML Syringe IV (20:13)
[2020-04-13] MEDS: Cefazolin 1 GM/50 ML BAG IV (23:06)
[2020-04-13] MEDS: Mirtazapine 15 MG Tablet 7.5 MG PO (23:17)
[2020-04-13] MEDS: Iron Polysaccharide Complex 150 MG CAPSULE PO (23:17)
[2020-04-13 23:35] LABS: Bedside Glucose 150 mg/dL (70-110)
[2020-04-14] VITALS (13 sets, daily range): BP systolic 95–138; BP diastolic 60–80; PULSE 89–127; RESP 16–18; TEMP 36.6–37.1; O2SAT 95–100; BMI 24.6
[2020-04-14 00:36] LABS: Bedside Glucose 71 mg/dL (70-110)
[2020-04-14] MEDS: oxyCODONE 5 MG Tablet 10 MG PO ×2 (04:49→10:25)
[2020-04-14] MEDS: Cefazolin 1 GM/50 ML BAG IV (05:46)
[2020-04-14] MEDS: tiZANidine HCl 2 MG Tablet PO ×3 (05:50→21:15)
[2020-04-14] MEDS: Cephalexin 500 MG Capsule PO ×3 (05:50→21:15)
[2020-04-14 06:08] LABS: Absolute Lymphocyte Count 0.45 X10^3/uL (0.83-4.51); Basophil# 0.03 X10^3/uL; Basophil% 0.4 % (0-1); Eosinophil# 0.02 X10^3/uL; Eosinophils% 0.2 % (0-5); Hematocrit 34.8 % (37-47); Hemoglobin 11.2 g/dL (12.0-15.0); Lymphocyte # 0.45 X10^3/ul (4.0); Lymphocyte % 5.3 % (19-41); Mean Corp Hgb Conc 32.2 g/dL (32-36); Mean Corpuscular Hgb 28.3 pg (27.0-32.0); Mean Corpuscular Volume 87.9 fL (81-99); Mean Platelet Vol. 9.7 fl (6.2-12.0); Monocyte# 0.89 X10^3/uL; Monocyte% 10.5 % (0-10); NRBC Flagged by Analyzer 0 % (0-5); Neutrophil # 7.01 X10^3/uL (2.7-7.7); Neutrophil % 82.8 % (47-70); POSITIVE DIFFERENTIAL YES; Platelet Count 178 K/mm3 (150-450); RBC Distribution Width CV 14.4 % (11.6-14.6); RBC Distribution Width SD 46.2 fl (35.1-43.9); Red Blood Count 3.96 M/mm3 (4.2-5.4); White Blood Count 8.5 K/mm3 (4.4-11.0)
[2020-04-14 06:12] LABS: Differential Indicated SCAN CRITERIA MET
[2020-04-14 06:30] LABS: Anion Gap 8 (5-15); BUN 16 mg/dL (7-18); BUN/Creat Ratio 18.9 RATIO (10-20); Calcium,Total 8.4 mg/dL (8.5-10.1); Chloride 106 mmol/L (98-107); Creatinine, Serum 0.84 mg/dL (0.55-1.02); EST Glomerular Filtration Rate 69 mL/min (>60); Est Glom Filt Rate - Afr Amer 84 mL/min (>60); Estimated Creatinine Clearance 54.54 ml/min; Glucose 126 mg/dL (74-106); Sodium Level 131 mmol/L (136-145)
[2020-04-14] MEDS: Enoxaparin 40 MG/0.4 ML Syringe SC (06:43)
[2020-04-14] MEDS: Metoprolol Tartrate 5 MG/5 ML Vial IV (06:51)
[2020-04-14 06:55] LABS: Bedside Glucose 95 mg/dL (70-110)
--- NOTE | 2020-04-14 07:36 | PCM.PN.ORT ---
Patient Problems: Active and Suspected Problems Closed left hip fracture (Acute) Hyperglycemia (Acute) Subjective: Patient doing well. Left hip gives her minimal pain. She states she is not worried about her LSF. - Physical Exam Vitals/I&O's: Vital Signs Temp Pulse Resp BP Pulse Ox 98 F 120 H 18 138/80 H 99 04/14/20 04:45 04/14/20 06:51 04/14/20 04:45 04/14/20 04:45 04/14/20 04:45 Oxygen Flow Rate (L/min) 2 Oxygen Delivery Method Room Air Weight: 156 lb 15.506 oz Body Mass Index (BMI) 24.5 Finger Stick Blood Glucose 135 Intake and Output for Last 24 Hours 04/12/20 04/13/20 04/14/20 23:59 23:59 23:59 Intake Total 3555.67 / 4455.67 4063.34 / 4063.34 883.33 / 883.33 Output Total 1125 / 1650 2225 / 2225 400 / 400 Balance 2430.67 / 2805.67 1838.34 / 1838.34 483.33 / 483.33 General: Alert, Oriented x3, No apparent distress Extremities: No clubbing, No cyanosis, No edema, Capillary Refill Less than 3 Seconds, No Calf Tenderness Skin: Incision - stable. Musculoskeletal: Tenderness - Left hip as expected gentle ROM well tolerated Neurological: Neuro grossly intact Comment: xrays of the LSF reveal that the PIP joint is subluxed volarly Microbiology Past 72 Hours 04/12/20 16:35 Mucosa - Nasopharyngeal Coronavirus COVID-19 PCR - Preliminary Laboratory Results 04/11/20 23:55: Crossmatch See Detail 04/11/20 23:55: Crossmatch See Detail 04/13/20 11:23: POC Glucose 71 04/13/20 18:12: POC Glucose 127 H 04/13/20 23:15: POC Glucose 150 H 04/14/20 05:55: WBC 8.5, RBC 3.96 L, Hgb 11.2 L, Hct 34.8 L, MCV 87.9, MCH 28.3, MCHC 32.2, RDW Std Deviation 46.2 H, RDW Coeff of Alvarado 14.4, Plt Count 178, MPV 9.7, Immature Gran % (Auto) 0.800, Neut % (Auto) 82.8 H, Lymph % (Auto) 5.3 L, Brown % (Auto) 10.5 H, Eos % (Auto) 0.2, Baso % (Auto) 0.4, Absolute Neuts (auto) 7.0, Absolute Lymphs (auto) 0.45 L, Nucleated RBC % 0, Differential Comment 04/14/20 05:55: Sodium 131 L, Potassium 5.0, Chloride 106, Carbon Dioxide 17.0 L, Anion Gap 8, BUN 16, Creatinine 0.84, Estim Creat Clear Calc 54.54, Est GFR (MDRD) Af Amer 84, Est GFR (MDRD) Non-Af 69, BUN/Creatinine Ratio 18.9, Glucose 126 H, Calcium 8.4 L 04/14/20 06:41: POC Glucose 95 Current Medications Acetaminophen (Tylenol) 650 mg PO Q6H PRN PRN PRN Reason: Pain Score 1-10/Temp > 100.7 F Al Hydroxide/Mg Hydroxide (Mylanta Ii) 30 ml PO Q6H PRN PRN PRN Reason: Gastric Burning Albuterol Sulfate (Ventolin Aerosols) 2.5 mg INHALATION Q2H PRN PRN PRN Reason: Shortness of Breath/Wheezing Bisacodyl (Dulcolax) 10 mg PO DAILY PRN PRN PRN Reason: Constipation Cephalexin (Keflex) 500 mg PO Q8 [facility] Last Admin: 04/14/20 05:50 Dose: 500 mg Documented by: Dextrose (D50w Syringe) 0 gm IV X1 PRN; Protocol PRN Reason: Hypoglycemia Docusate Sodium (Colace) 200 mg PO BID PRN PRN PRN Reason: Constipation Duloxetine HCl (Cymbalta) 60 mg PO DAILY [facility] Last Admin: 04/13/20 08:05 Dose: Not Given Documented by: Enoxaparin Sodium (Lovenox) 40 mg SC DAILY@0600 [facility] Last Admin: 04/14/20 06:43 Dose: 40 mg Documented by: Glucagon () 1 mg IM .X1 PRN PRN Reason: Hypoglycemia Guaifenesin (Robitussin) 20 ml PO Q4H PRN PRN PRN Reason: COUGH Hydralazine HCl (Apresoline Iv) 10 mg IV Q4H PRN PRN PRN Reason: SBP > 160 Hydromorphone HCl (Dilaudid Inj) 0.5 mg IV Q4H PRN PRN PRN Reason: Pain Score 6-10/10 Last Admin: 04/13/20 07:47 Dose: 0.5 mg Documented by: Sodium Chloride () 1,000 mls @ 100 mls/hr IV .Q10H [facility] Last Infusion: 04/14/20 06:06 Dose: 100 mls/hr Documented by: Insulin Human Lispro (Humalog Kwikpen (Bkc)) 0 unit SC ACHS [facility]; Protocol Last Admin: 04/14/20 06:42 Dose: Not Given Documented by: Lorazepam (Ativan) 1 mg PO TID PRN PRN PRN Reason: ANXIETY Mirtazapine (Remeron) 7.5 mg PO QHS [facility] Last Admin: 04/13/20 23:17 Dose: 7.5 mg Documented by: Ondansetron HCl (Zofran) 4 mg IV Q8H PRN PRN PRN Reason: NAUSEA/VOMITING Oxycodone HCl (Oxyir) 10 mg PO Q4H PRN PRN PRN Reason: Pain Score 4-5/10 Last Admin: 04/14/20 04:49 Dose: 10 mg Documented by: Pantoprazole Sodium (Protonix) 40 mg PO DAILY [facility] Last Admin: 04/13/20 08:05 Dose: Not Given Documented by: Polyethylene Glycol (Miralax) 17 gm PO DAILY [facility] Last Admin: 04/13/20 08:05 Dose: Not Given Documented by: Polysaccharide Iron Complex (Ferrex 150) 150 mg PO BID [facility] Last Admin: 04/13/20 23:17 Dose: 150 mg Documented by: [facility] Last Admin: 04/13/20 08:05 Dose: Not Given Documented by: Prochlorperazine Edisylate (Compazine Iv) 5 mg IV Q4H PRN PRN PRN Reason: Breakthrough nausea/vomiting Promethazine HCl (Phenergan) 12.5 mg IM Q6H PRN PRN; Protocol PRN Reason: NAUSEA/VOMITING Sodium Chloride () 10 - 40 ml IV UD PRN PRN Reason: SALINE FLUSH Last Admin: 04/13/20 20:13 Dose: 10 ml Documented by: Throat Lozenges (Cepacol Sore Throat Lozenge) 1 lozenge MUCOUS MEM Q2H PRN PRN PRN Reason: SORE THROAT Tizanidine HCl (Zanaflex) 2 mg PO TID [facility] Last Admin: 04/14/20 05:50 Dose: 2 mg Documented by: Trazodone HCl (Desyrel) 100 mg PO QHS PRN PRN PRN Reason: INSOMNIA Medical Necessity - Tobacco Use Smoking Status: Never smoker Tobacco Use: Non-smoker Assessment/Plan All Active Problems Debility (Acute) Toxic encephalopathy (Acute) Opioid overdose (Acute) Positive occult stool blood test (Acute) Closed left hip fracture (Acute) Hyperglycemia (Acute) Hyponatremia (Acute) YRIS (acute kidney injury) (Acute) Rhabdomyolysis (Acute) 1. s/p hemiarthroplasty left hip -- Doing well. Will start PT today 2. Fracture LSF middle phalanx with volar subluxation of DIP joint -- I expressed to her that I feel we need to refer her to a hand surgeon for possible surgical care of this injury. She states again that she is not worried about it and would rather nor be referred. Will discuss further with patient and her daughter. I re-iterated to her that if it heals in its current position, the finger is likely to be stiff and sore.
[2020-04-14] MEDS: Polyethylene Glycol 3350 17 GM PACKET PO (09:04)
[2020-04-14] MEDS: Iron Polysaccharide Complex 150 MG CAPSULE PO ×2 (09:04→21:15)
[2020-04-14] MEDS: DULoxetine Hcl 60 MG Capsule PO (09:04)
[2020-04-14] MEDS: Pantoprazole Sodium 40 MG Tablet PO (09:04)
[2020-04-14] MEDS: Acetaminophen 325 MG Tablet 650 MG PO (09:09)
[2020-04-14 11:55] LABS: Bedside Glucose 143 mg/dL (70-110)
--- NOTE | 2020-04-14 12:04 | NURSING ---
attempted to call daughter Destinee, no answer and message left. called daughter Greer and was able to provide pt update.
--- NOTE | 2020-04-14 12:57 | CASEMGMT ---
Addendum entered by Petty Zelaya 04/14/20 15:18: SW received call from Elliot at [facility] stating she is able to accept pt and will submit for pre-cert. SW updated pt. Pt states understanding. Plan: [facility] pending pre-cert. Addendum entered by Petty Zelaya 04/14/20 14:28: SW received call from Autumn in [facility] stating at this time they have no beds available. Autumn states she is covering for RU and is under the impression that pt's insurance ([employer]) only approves strokes for RU. SW back in to speak with pt. SW updated pt that [facility] doesn't have any beds available at this time. Pt states well can't you keep my on the list. SW informed pt that medically she is ready for discharge so this worker needs to move on to the next SNF for pt. SW provided pt with list of SNF that accept pt's insurance. Pt states her next choice is [facility]. ANTHONY placed a call to Rubi at [facility] and provided referral. SW faxed referral. Plan: W pending acceptance and pre-cert Addendum entered by Petty Zelaya 04/14/20 14:03: ANTHONY placed a call to Autumn in [facility] and left message again regarding referral. SW waiting for call back. Original Note: Social Work Note RN updated this worker that pt's daughter Patito wanted to speak to this worker. ANTHONY spoke with Patito. Patito states that pt was at [facility] and discharged home in December and she would prefer pt to return to [facility] at discharge. ANTHONY updated Patito that this worker will speak with pt later today and will also need to call TCU to see if they have any beds available. Patito states understanding. SW in to speak with pt. Pt states she would be agreeable to [facility]. SW informed pt that this worker will call TCU to determine if they have any beds available and then pt will need pre-cert. Pt states understanding. ANTHONY placed a call to Autumn in [facility] and left message regarding referral. SW waiting for call back. Plan: [facility] pending acceptance and pre-cert Petty Zelaya SPINNING MACHINE OPERATOR, MEDICAL BILLING CODER
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
[2020-04-14 18:15] LABS: Bedside Glucose 196 mg/dL (70-110)
[2020-04-14] MEDS: Mirtazapine 15 MG Tablet 7.5 MG PO (21:15)
[2020-04-14] MEDS: Docusate Sodium 100 MG Capsule 200 MG PO (21:18)
[2020-04-14 21:26] LABS: Bedside Glucose 184 mg/dL (70-110)
[2020-04-15] VITALS (20 sets, daily range): BP systolic 91–132; BP diastolic 62–91; PULSE 88–135; RESP 16–18; TEMP 36.4–38.3; O2SAT 89–100
[2020-04-15] MEDS: oxyCODONE 5 MG Tablet 10 MG PO (00:50)
[2020-04-15] MEDS: Mag Hydrox/Al Hydrox/Simeth 30 ML UDC PO (00:50)
[2020-04-15] MEDS: LORazepam 1 MG Tablet PO (01:49)
[2020-04-15] MEDS: Metoprolol Tartrate 5 MG/5 ML Vial IV (02:16)
[2020-04-15] MEDS: Acetaminophen 325 MG Tablet 650 MG PO ×2 (03:15→09:11)
[2020-04-15] MEDS: Metoprolol Tartrate 5 MG/5 ML Vial 2.5 MG IV (04:24)
--- NOTE | 2020-04-15 04:35 | RAD_ITS ---
STUDY: X-RAY CHEST REASON FOR EXAM: Female, 79 years old. DYSPNEA, RECENT LEFT HIP FRACTURE TECHNIQUE: Frontal view COMPARISON: 04/11/2020 FINDINGS: Lungs are expanded. There are NO acute infiltrates. There are mild fibrotic changes. Normal size heart. Normal mediastinum and patricia. There is a moderate hiatal hernia. There is atherosclerotic calcification of the aortic arch with tortuosity. Normal visualized thoracic spine. Normal visualized ribs, clavicles, and shoulders. There is no demonstrated abnormality of the visualized soft tissue structures of the upper abdomen. RAD/Chest PA and Lateral IMPRESSION: There is NO acute cardiopulmonary abnormality. Electronically Signed: Pito Vázquez MD at 5:16 EDT , Service support ,
[2020-04-15] MEDS: tiZANidine HCl 2 MG Tablet PO ×3 (05:50→21:48)
[2020-04-15] MEDS: Enoxaparin 40 MG/0.4 ML Syringe SC (05:50)
[2020-04-15] MEDS: Cephalexin 500 MG Capsule PO ×3 (05:50→21:48)
[2020-04-15 06:55] LABS: Bedside Glucose 141 mg/dL (70-110)
[2020-04-15 07:04] LABS: Absolute Lymphocyte Count 0.58 X10^3/uL (0.83-4.51); Absolute Neutrophil Count 7.5 X10^3/uL (2.0-7.7); Basophil# 0.04 X10^3/uL; Basophil% 0.4 % (0-1); Eosinophil# 0.07 X10^3/uL; Eosinophils% 0.7 % (0-5); Hematocrit 30.2 % (37-47); Hemoglobin 9.9 g/dL (12.0-15.0); Lymphocyte # 0.58 X10^3/ul (4.0); Lymphocyte % 6.1 % (19-41); Mean Corp Hgb Conc 32.8 g/dL (32-36); Mean Corpuscular Hgb 28.4 pg (27.0-32.0); Mean Corpuscular Volume 86.8 fL (81-99); Mean Platelet Vol. 10.7 fl (6.2-12.0); Monocyte# 1.17 X10^3/uL; Monocyte% 12.4 % (0-10); NRBC Flagged by Analyzer 0 % (0-5); Neutrophil # 7.53 X10^3/uL (2.7-7.7); Neutrophil % 79.6 % (47-70); POSITIVE DIFFERENTIAL YES; Platelet Count 207 K/mm3 (150-450); RBC Distribution Width CV 14.6 % (11.6-14.6); RBC Distribution Width SD 46.5 fl (35.1-43.9); Red Blood Count 3.48 M/mm3 (4.2-5.4); White Blood Count 9.5 K/mm3 (4.4-11.0)
[2020-04-15 07:05] LABS: Differential Indicated SCAN CRITERIA MET
[2020-04-15 07:07] LABS: Anion Gap 8 (5-15); BUN 20 mg/dL (7-18); BUN/Creat Ratio 21.1 RATIO (10-20); Calcium,Total 8.2 mg/dL (8.5-10.1); Chloride 99 mmol/L (98-107); Creatinine, Serum 0.95 mg/dL (0.55-1.02); EST Glomerular Filtration Rate 61 mL/min (>60); Est Glom Filt Rate - Afr Amer 74 mL/min (>60); Estimated Creatinine Clearance 48.23 ml/min; Glucose 150 mg/dL (74-106); Potassium 4.8 mmol/L (3.5-5.1); Sodium Level 129 mmol/L (136-145)
[2020-04-15 07:24] LABS: Hypochromasia RARE
[2020-04-15 07:27] LABS: Differential Comment SCANNED
[2020-04-15 07:28] LABS: Polychromasia RARE
[2020-04-15 07:32] LABS: Atypical Lymphocyte RARE %
[2020-04-15] MEDS: Pantoprazole Sodium 40 MG Tablet PO (09:10)
[2020-04-15] MEDS: Iron Polysaccharide Complex 150 MG CAPSULE PO ×2 (09:10→21:48)
[2020-04-15] MEDS: DULoxetine Hcl 60 MG Capsule PO (09:11)
[2020-04-15] MEDS: Polyethylene Glycol 3350 17 GM PACKET PO (09:11)
--- NOTE | 2020-04-15 09:54 | CT_ITS ---
STUDY: CTA CHEST REASON FOR EXAM: Female, 79 years old. Tachycardia, recent hip replacement. Fever RADIATION DOSAGE (If Supplied By Facility): CTDIvol = ( 15.45 ) mGy, DLP = ( 388.77 ) mGycm TECHNIQUE: The examination was performed with the intravenous administration of 100mL Isovue 370. Post-processing of the angiographic images was performed, with multiplanar reformation and 3D reconstruction. Individualized dose optimization techniques were used for this CT. COMPARISON: None. FINDINGS: Main pulmonary artery is dilated to 3.3 cm. Normal enhancement of the main pulmonary artery and right and left pulmonary arteries. Normal enhancement of the bilateral peripheral pulmonary arteries. Respiratory motion limits evaluation of the right lower lobe peripheral pulmonary arteries. There is no demonstrated pulmonary embolism. Small left and trace right pleural effusion. There is diffuse intralobular septal thickening. Respiratory motion limits evaluation of small detail. There is a 3 mm posterior right apical nodule on image 157. There is mild atelectasis at the lung bases. The aorta is tortuous with trace atherosclerotic disease. There is no demonstrated aortic dissection. Mild cardiomegaly. Mild coronary artery calcifications. No mediastinal, axillary or bulky hilar adenopathy. Normal visualized trachea and bronchi. Normal chest wall structures. Thoracolumbar scoliosis. There is a chronic compression fracture with anterior wedging of T8 vertebral body. Moderate collapse of the T11 superior endplate. Multilevel degenerative disease. There is a moderate hiatal hernia. CT/CTA Chest W/WO Contrast IMPRESSION: 1. No central pulmonary embolism or arterial dissection. Respiratory motion limits evaluation of the right lower lobe peripheral pulmonary arteries. 2. There is diffuse pulmonary edema, small left and trace right pleural effusions. Mild cardiomegaly. Findings suggestive of CHF exacerbation. 3. Main pulmonary artery is dilated, this may represent pulmonary artery hypertension. 4. Moderate hiatal hernia. 5. Remaining chronic findings are described above. Electronically Signed: Carol Jeronimo, at 11:42 EDT Tel , Service support ,
--- NOTE | 2020-04-15 10:01 | CASEMGMT ---
Addendum entered by Petty Zelaya 04/15/20 15:37: SW received message from Rubi at [facility] requesting updated clinicals from today. SW faxed updated clinicals. Original Note: Social Work Note SW received message from Rubi at [facility] stating pre-cert has been obtained, wanting to know which daughter to contact, and if pt has had any COVID symptoms. Per physician, pt is not medically cleared for discharge today. SW reviewed ED Triage, no reports of respiratory symptoms, no travel outside [place] and no recent expose to COVID. SW placed a call back to Rubi at [facility] and updated her on above information, that pt is not medically ready for discharge today, and staff has been speaking to pt's daughter Greer for updates. SW in to speak with pt. SW updated pt on acceptance to [facility] and insurance approval and that physician is hoping to discharge to SNF tomorrow. Pt states understanding, agreeable to this worker calling her daughter Greer to update. ANTHONY placed a call to pt's daughter Greer and updated her on acceptance to [facility] and approval to [facility] and likely discharge tomorrow. Greer states understanding. ANTHONY faxed updated clinicals to [facility] including ED triage, negative COVID test (which was faxed yesterday) and Post-Acute COVID 19 transfer communication tool. It should be noted that this worker did talk to pt's daughter Greer yesterday not Patito which was charted in this worker's note. It was Greer that this worker has been talking to. Plan: [facility] skilled, likely tomorrow as pt is not medically cleared for discharge today Petty Zelaya [employer], [employer]
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
[2020-04-15 11:18] LABS: Bacteria 0 SEEN /hpf (None Seen); Mucous, Urine 0 SEEN /hpf (<or=2+)
[2020-04-15 11:26] LABS: Color, Urine Yellow (Yellow); Glucose, Dipstick Normal (Normal); Ketone-Dipstick Negative (Negative); Leukocyte Esterase-Dipstick 25 /ul (Negative); Nitrite-Dipstick Negative (Negative); Occult Blood-Urine 10 /ul (Negative); Protein-Dipstick 30 mg/dl (Negative); Urine Bilirubin Dipstick Negative (Negative); Urine Clarity Sl. Cloudy (Clear); Urine Urobilinogen Normal (Normal); Urine pH 6.5 (5.0 - 8.0)
[2020-04-15 11:34] LABS: Red Blood Cells-Urine 0-5 SEEN /hpf (0-5); White Blood Cells 0-5 SEEN /hpf (0-5)
[2020-04-15 11:35] LABS: Squamous Epithelial Cells - UA 0-5 SEEN /hpf (5-10)
[2020-04-15] MEDS: Furosemide 40 MG Tablet PO (13:36)
--- NOTE | 2020-04-15 13:48 | PN.ORTHO_ITS ---
Patient Problems: Active and Suspected Problems Closed left hip fracture (Acute) Hyperglycemia (Acute) Subjective: Patient sitting at bedside eating lunch. Patient's pain is well-managed. Patient denies chest pain, shortness of breath,, calf pain, nausea vomiting. Patient has no other complaints states she is ready for extended-care facility. Objective: Dressings clean dry intact. Negative signs or symptoms of DVT. Patient does have a preoperative dropfoot on the right otherwise good motion of the right leg. Left leg, the left hip is nonerythematous, there is some mild swelling, with mild tenderness palpation. She has good flexion-extension of left knee ankle and foot no calf tenderness. Vital signs and labs were reviewed and noted in medical record - Physical Exam Vitals/I&O's: Vital Signs Temp Pulse Resp BP Pulse Ox 98.1 F 112 H 16 110/67 96 04/15/20 13:38 04/15/20 13:38 04/15/20 13:38 04/15/20 13:38 04/15/20 13:38 Oxygen Flow Rate (L/min) 2 Oxygen Delivery Method Nasal Cannula Weight: 71.2 kg Body Mass Index (BMI) 24.5 Finger Stick Blood Glucose 135 Intake and Output for Last 24 Hours 04/13/20 04/14/20 04/15/20 23:59 23:59 23:59 Intake Total 4063.34 / 4063.34 2235.00 / 2235.00 720 / 720 Output Total 2225 / 2225 850 / 850 650 / 650 Balance 1838.34 / 1838.34 1385.00 / 1385.00 70 / 70 General: Alert, Oriented x3, Cooperative HEENT: PERRLA Oral: Moist Mucosa Cardiovascular: Regular rate Neurological: Cranial nerves II-XII grossly intact Psych/Mental Status: Normal Affect, Alert and oriented to time, place, person, mood and affect Microbiology Past 72 Hours 04/12/20 16:35 Mucosa - Nasopharyngeal Coronavirus COVID-19 PCR - Final Laboratory Results 04/14/20 05:55: Magnesium 2.0 04/14/20 18:06: POC Glucose 196 H 04/14/20 21:11: POC Glucose 184 H 04/15/20 06:05: Sodium 129 L, Potassium 4.8, Chloride 99, Carbon Dioxide 22.0, Anion Gap 8, BUN 20 H, Creatinine 0.95, Estim Creat Clear Calc 48.23, Est GFR (MDRD) Af Amer 74, Est GFR (MDRD) Non-Af 61, BUN/Creatinine Ratio 21.1 H, Glucose 150 H, Calcium 8.2 L 04/15/20 06:05: WBC 9.5, RBC 3.48 L, Hgb 9.9 L, Hct 30.2 L, MCV 86.8, MCH 28.4, MCHC 32.8, RDW Std Deviation 46.5 H, RDW Coeff of Alvarado 14.6, Plt Count 207, MPV 10.7, Immature Gran % (Auto) 0.800, Neut % (Auto) 79.6 H, Lymph % (Auto) 6.1 L, [place] % (Auto) 12.4 H, Eos % (Auto) 0.7, Baso % (Auto) 0.4, Absolute Neuts (auto) 7.5, Absolute Lymphs (auto) 0.58 L, Nucleated RBC % 0, Differential Comment SCANNED, Atypical Lymphocytes RARE, Polychromasia RARE, Hypochromasia RARE 04/15/20 06:05: B-Natriuretic Peptide Pending 04/15/20 06:45: POC Glucose 141 H 04/15/20 11:00: Urine Color Yellow, Urine Clarity Sl. Cloudy, Urine pH 6.5, Ur Specific [place] 1.010, Urine Protein 30 H, Urine Glucose (UA) Normal, Urine Ketones Negative, Urine Occult Blood 10 H, Urine Nitrite Negative, Urine Bilirubin Negative, Urine Urobilinogen Normal, Ur Leukocyte Esterase 25 H, Urine RBC 0-5 SEEN, Urine WBC 0-5 SEEN, Ur Squamous Epith Cells 0-5 SEEN, Urine Bacteria 0 SEEN, Urine Mucus 0 SEEN Current Medications Acetaminophen (Tylenol) 650 mg PO Q6H PRN PRN PRN Reason: Pain Score 1-10/Temp > 100.7 F Last Admin: 04/15/20 09:11 Dose: 650 mg Documented by: Al Hydroxide/Mg Hydroxide (Mylanta Ii) 30 ml PO Q6H PRN PRN PRN Reason: Gastric Burning Last Admin: 04/15/20 00:50 Dose: 30 ml Documented by: Albuterol Sulfate (Ventolin Aerosols) 2.5 mg INHALATION Q2H PRN PRN PRN Reason: Shortness of Breath/Wheezing Bisacodyl (Dulcolax) 10 mg PO DAILY PRN PRN PRN Reason: Constipation Cephalexin (Keflex) 500 mg PO Q8 [facility] Last Admin: 04/15/20 13:36 Dose: 500 mg Documented by: Dextrose (D50w Syringe) 0 gm IV X1 PRN; Protocol PRN Reason: Hypoglycemia Docusate Sodium (Colace) 200 mg PO BID PRN PRN PRN Reason: Constipation Last Admin: 04/14/20 21:18 Dose: 200 mg Documented by: Duloxetine HCl (Cymbalta) 60 mg PO DAILY [facility] Last Admin: 04/15/20 09:11 Dose: 60 mg Documented by: Furosemide (Lasix) 40 mg PO DAILY [facility] Last Admin: 04/15/20 13:36 Dose: 40 mg Documented by: Glucagon () 1 mg IM .X1 PRN PRN Reason: Hypoglycemia Guaifenesin (Robitussin) 20 ml PO Q4H PRN PRN PRN Reason: COUGH Hydralazine HCl (Apresoline Iv) 10 mg IV Q4H PRN PRN PRN Reason: SBP > 160 Hydromorphone HCl (Dilaudid Inj) 0.5 mg IV Q4H PRN PRN PRN Reason: Pain Score 6-10/10 Last Admin: 04/13/20 07:47 Dose: 0.5 mg Documented by: Insulin Human Lispro (Humalog Kwikpen (Bkc)) 0 unit [facility]; Protocol Last Admin: 04/15/20 13:35 Dose: Not Given Documented by: Lorazepam (Ativan) 1 mg PO TID PRN PRN PRN Reason: ANXIETY Last Admin: 04/15/20 01:49 Dose: 1 mg Documented by: Mirtazapine (Remeron) 7.5 mg PO QHS [facility] Last Admin: 04/14/20 21:15 Dose: 7.5 mg Documented by: Ondansetron HCl (Zofran) 4 mg IV Q8H PRN PRN PRN Reason: NAUSEA/VOMITING Oxycodone HCl (Oxyir) 10 mg PO Q4H PRN PRN PRN Reason: Pain Score 4-5/10 Last Admin: 04/15/20 00:50 Dose: 10 mg Documented by: Pantoprazole Sodium (Protonix) 40 mg PO DAILY [facility] Last Admin: 04/15/20 09:10 Dose: 40 mg Documented by: Polyethylene Glycol (Miralax) 17 gm PO DAILY [facility] Last Admin: 04/15/20 09:11 Dose: 17 gm Documented by: Polysaccharide Iron Complex (Ferrex 150) 150 mg PO BID [facility] Last Admin: 04/15/20 09:10 Dose: 150 mg Documented by: Potassium Chloride (K-Dur) 20 meq PO DAILYCM [facility] Last Admin: 04/15/20 09:10 Dose: 20 meq Documented by: Prochlorperazine Edisylate (Compazine Iv) 5 mg IV Q4H PRN PRN PRN Reason: Breakthrough nausea/vomiting Promethazine HCl (Phenergan) 12.5 mg IM Q6H PRN PRN; Protocol PRN Reason: NAUSEA/VOMITING Sodium Chloride () 10 - 40 ml IV UD PRN PRN Reason: SALINE FLUSH Last Admin: 04/13/20 20:13 Dose: 10 ml Documented by: Throat Lozenges (Cepacol Sore Throat Lozenge) 1 lozenge MUCOUS MEM Q2H PRN PRN PRN Reason: SORE THROAT Tizanidine HCl (Zanaflex) 2 mg PO TID [facility] Last Admin: 04/15/20 13:36 Dose: 2 mg Documented by: Trazodone HCl (Desyrel) 100 mg PO QHS PRN PRN PRN Reason: INSOMNIA Medical Necessity - Tobacco Use Smoking Status: Never smoker Tobacco Use: Non-smoker Assessment/Plan All Active Problems Debility (Acute) Toxic encephalopathy (Acute) Opioid overdose (Acute) Positive occult stool blood test (Acute) Closed left hip fracture (Acute) Hyperglycemia (Acute) Hyponatremia (Acute) YRIS (acute kidney injury) (Acute) Rhabdomyolysis (Acute) Status post left hip hemiarthroplasty, status post hip fracture, stable Plan 1. Continue all pain medications as prescribed 2. Continue physical therapy, weight-bear as tolerated with walker. 3. Continue anticoagulation, for postop DVT prophylaxis as directed by medicine 4. Encourage incentive spirometry 5. Shower 04/17/2020 6. Change dressing, to Ag dressing prior to discharge to ECF 7. Follow-up with Dr. Adiel Hugo in 2 weeks, call for appointment 8. Move nanette 04/27/2020 9. Discharge to ECF when clear with medicine
[2020-04-15 13:49] LABS: BNP,B-Type NATRIURETIC PEPTIDE 1571.8 pg/mL (0-100)
--- NOTE | 2020-04-15 13:53 | DCINST_ITS ---
Discharge Diet: No Restrictions Discharge Activity: May Not Drive, May Shower, Use Walker May shower in (days): 3 - only if incision is dry and without drainage. Do NOT soak/submerge in tub/pool/tapia/stream/hot tub. May resume sexual activity in: No Restrictions Ice area for (Minutes): 20 - every hour while awake Weight Bearing Status: Weight bearing as tolerated Lifting Restrictions: 20 pounds Elevate: Operative Extremity Call your doctor if your incision/area has: Continuous Slow Oozing, Sudden Increased Bleeding, Increased Pain/ Swelling, Increased Redness, Foul Smelling Discharge Call your doctor if you observe: Fever of 101 or Higher, Inability to urinate, Inability to have a bowel movement, Shortness of breath, Fainting spells, Chest pain, Increased palpitations (irregular heartbeat), Calf discomfort, Uncontrolled pain Change Dressing in (Days):: 0 Remove Dressing in (days):: 8 Cleanse incision/area with: Soap & Water Allergies/Adverse Reactions: Allergies morphine Adverse Reaction (Verified 04/11/20 23:27) delirium Medications to take at Discharge Duloxetine HCl 60 mg PO DAILY 11/23/18 Tizanidine HCl 2 mg PO TID 11/23/18 traZODone [Desyrel] 100 mg PO QHS 11/23/18 Lisinopril/Hydrochlorothiazide [Lisinopril-Hctz 20-12.5 mg Tab] 1 tab PO DAILY 12/19/19 Iron Polysaccharide Complex [Ferrex 150] 150 mg PO BID 12/23/19 Pantoprazole Sodium [Protonix] 40 mg PO DAILY 12/23/19 Acetaminophen [Tylenol] 1,000 mg PO Q6H PRN PRN tab 01/09/20 Mirtazapine [Remeron] 7.5 mg PO QHS #30 tab 01/09/20 Celecoxib [Celebrex] 100 mg PO DAILY 04/11/20 Hydrochlorothiazide [Hctz] 25 mg PO DAILY 04/11/20 Lorazepam 1 mg PO TID 04/11/20 Potassium Chloride [K-Dur] 20 meq PO DAILY 04/11/20 Primary Care Physician: Erick Christensen III, MD [Primary Care Provider] - Test Results: Test results from this visit will be discussed in further detail at your follow- up appointment, if applicable. Please Follow Up With: Cedric Hugo, DO When: call for appt,
[2020-04-15] MEDS: Furosemide 40 MG/4 ML Vial IV (18:51)
[2020-04-15] MEDS: 0.9% Saline Lock 10 ML Syringe IV ×2 (18:51→21:50)
[2020-04-15] MEDS: Bisacodyl 5 MG Tablet 10 MG PO (20:10)
[2020-04-15] MEDS: Mirtazapine 15 MG Tablet 7.5 MG PO (21:48)
[2020-04-15] MEDS: guaiFENesin 10 ML UDC (200MG/10ML) 20 ML PO (22:50)
[2020-04-16] VITALS (10 sets, daily range): BP systolic 113–130; BP diastolic 78–85; PULSE 91–127; RESP 18; TEMP 36.8–36.9; O2SAT 94–98
[2020-04-16] MEDS: Acetaminophen 325 MG Tablet 650 MG PO (00:08)
[2020-04-16] MEDS: BENZOCAINE/MENTHOL 1 LOZENGE MUCOUS MEM (00:10)
[2020-04-16] MEDS: tiZANidine HCl 2 MG Tablet PO (05:21)
[2020-04-16] MEDS: Cephalexin 500 MG Capsule PO (05:21)
[2020-04-16 07:04] LABS: Absolute Lymphocyte Count 0.88 X10^3/uL (0.83-4.51); Absolute Neutrophil Count 5.6 X10^3/uL (2.0-7.7); Basophil# 0.05 X10^3/uL; Basophil% 0.6 % (0-1); Eosinophil# 0.27 X10^3/uL; Eosinophils% 3.3 % (0-5); Hematocrit 28.7 % (37-47); Hemoglobin 9.4 g/dL (12.0-15.0); Lymphocyte # 0.88 X10^3/ul (4.0); Lymphocyte % 10.8 % (19-41); Mean Corp Hgb Conc 32.8 g/dL (32-36); Mean Corpuscular Hgb 28.5 pg (27.0-32.0); Mean Platelet Vol. 10.7 fl (6.2-12.0); Monocyte# 1.24 X10^3/uL; Monocyte% 15.2 % (0-10); NRBC Flagged by Analyzer 0 % (0-5); Neutrophil # 5.63 X10^3/uL (2.7-7.7); Platelet Count 199 K/mm3 (150-450); RBC Distribution Width CV 14.9 % (11.6-14.6); RBC Distribution Width SD 47.8 fl (35.1-43.9); White Blood Count 8.2 K/mm3 (4.4-11.0)
--- NOTE | 2020-04-16 07:30 | PCM.TXEXTCAR ---
- Diet 04/14/20 04:56 Diet: Regular Diet Is pt able to select menu?: Yes - Routine Orders/Code Status Code Status: Full Code - Wound(s) left hip Wound Type: Surgical Incision - Therapies Weight Bearing: Weight bearing as tolerated Physical Therapy: Eval and Treat Occupational Therapy: Eval and Treat - Allergies/Procedures Done in Hospital Allergies/Adverse Reactions: Allergies morphine Adverse Reaction (Verified 04/11/20 23:27) delirium - Type of Care/Length of Stay Estimated LOS: Convalescent Care Less Than 30 days Type of Care Needed: Skilled Rehab Potential: Good Prognosis: Good - Additional Orders/Day of Discharge Day of Discharge: 04/16/20 - Dietary and Speech Recommendations Dietitian Recommendations/Changes: Continue regular diet. - Follow Up Care Primary Care Physician: Erick Christensen III, MD [Primary Care Provider] - Please Follow Up With: Cedric Hugo DO When: call for appt,
[2020-04-16 07:31] LABS: Anion Gap 5 (5-15); BUN 22 mg/dL (7-18); BUN/Creat Ratio 21.8 RATIO (10-20); Calcium,Total 8.3 mg/dL (8.5-10.1); Chloride 99 mmol/L (98-107); Creatinine, Serum 1.01 mg/dL (0.55-1.02); EST Glomerular Filtration Rate 56 mL/min (>60); Est Glom Filt Rate - Afr Amer 68 mL/min (>60); Estimated Creatinine Clearance 45.36 ml/min; Glucose 142 mg/dL (74-106); Magnesium 1.7 mg/dL (1.6-2.6); Sodium Level 131 mmol/L (136-145)
--- NOTE | 2020-04-16 07:32 | DS.PCM_ITS ---
Discharge Date and Diagnosis - Problem List Patient Problems: Active and Suspected Problems Closed left hip fracture (Acute) Hyperglycemia (Acute) Date of Admission: 04/11/20 Date of Discharge: 04/16/20 - Primary Discharge Diagnosis Acute Problems: Active Problems Closed left hip fracture (Acute) Hyperglycemia (Acute) - Secondary Discharge Diagnosis Chronic Problems: Chronic Problems Chronic pain (Chronic) Opioid dependence (Chronic) Congestive heart failure (Chronic) Iron deficiency anemia (Chronic) Osteoarthritis (Chronic) Neuropathic pain (Chronic) Muscle spasm (Chronic) Insomnia (Chronic) CKD (chronic kidney disease), stage III (Chronic) Chronic pain disorder (Chronic) Hypertension (Chronic) Anxiety and depression (Chronic) Right foot drop (Chronic) Chronic anemia (Chronic) Hospital Course and Treatment Imaging Results: Clinical Impression(s) from Imaging Studies Chest X-Ray 04/11/20 21:02 IMPRESSION: Stable hiatal hernia Focal 1.5 cm left basilar opacity atelectasis cannot exclude pulmonary nodule; this can be further evaluated with CT Old right rib fractures Degenerative changes thoracic and lumbar spine. Lumbar spine levoscoliosis Old right rib fractures Electronically Signed: Chico Gore at 21:51 EDT Tel , Service support , Hip/Pelvis X-Ray 04/11/20 21:02 IMPRESSION: acute left femoral neck fracture. There is superior migration of the distal femur. . Soft tissue edema/hematoma Generalized osteopenia Total right hip prosthesis Degenerative changes lumbar spine with levoscoliosis partially included on the [id number] Electronically Signed: Chico Gore at 21:43 EDT Tel , Service support , Finger X-Ray 04/12/20 09:30 IMPRESSION: Proximal middle phalanx comminuted and displaced fractures above. Electronically Signed: Serge Jo DO at 13:23 EDT , Service support , Finger X-Ray 04/13/20 15:30 IMPRESSION: 1. Status post splinting. There is no change in the alignment and position of the fracture when compared to the prior study of April 12, 2020. Electronically Signed: Yash Hernandez DO at 17:43 EDT Tel [phone], Service support , Hip X-Ray 04/13/20 17:00 IMPRESSION: Status post left hip replacement. Electronically Signed: Yash Hernandez at 17:44 EDT Tel [phone], Service support , Chest X-Ray 04/15/20 04:35 IMPRESSION: There is NO acute cardiopulmonary abnormality. Electronically Signed: Pito Vázquez MD at 5:16 EDT , Service support , Chest CTA 04/15/20 09:54 IMPRESSION: 1. No central pulmonary embolism or arterial dissection. Respiratory motion limits evaluation of the right lower lobe peripheral pulmonary arteries. 2. There is diffuse pulmonary edema, small left and trace right pleural effusions. Mild cardiomegaly. Findings suggestive of CHF exacerbation. 3. Main pulmonary artery is dilated, this may represent pulmonary artery hypertension. 4. Moderate hiatal hernia. 5. Remaining chronic findings are described above. Electronically Signed: Carol Jeronimo, at 11:42 EDT Tel , Service support , Operations: None Summary of Care Provided: In brief, patient is a 79-year-old lady admitted with a fall median studies demonstrated acute left femoral neck fracture. Assessment: 1. Left femoral neck fracture - Patient underwent left hemiarthroplasty on 04/13/2020. 2. Symptomatic anemia - She did receive a total of 3 unit PRBC 3. Hyponatremia ?Sodium levels had improved at the time of discharge 4. Acute congestive heart failure with preserved ejection fraction of 55% ?Patient was managed with Lasix prescription written on discharge 5. Hypertension ~ blood pressure controlled, home medications continued with dose adjustment as needed 6. Pulmonary nodule Patient notified of finding plan is for patient to follow-up with PCP for repeat imaging studies in 3 to 6 months for stability or otherwise 7. Hypomagnesemia corrected per protocol 8. Depression with anxiety Did continue home medications 9. DVT prophylaxis ?Managed with Xarelto prescription written on discharge Patient Problems: Active and Suspected Problems Closed left hip fracture (Acute) Hyperglycemia (Acute) Objective: GENERAL: cooperative HEENT: Atraumatic; EYES; Anicteric, Normal Conjunctiva NECK; supple, normal thyroid, RESPIRATORY: Diminished to auscultation CARDIOVASCULAR: Regular S1 S2, GI: soft, normoactive bowel sounds, : No Renal angle tenderness; EXTREMITIES: No edema, no clubbing, NEURO: Awake; no lateralizing signs. SKIN: No Rash PSYCH; Flat affect - Physical Exam Vitals/I&O's: Vital Signs Temp Pulse Resp BP Pulse Ox 98.3 F 91 18 130/85 H 98 04/16/20 02:32 04/16/20 06:00 04/16/20 02:32 04/16/20 02:32 04/16/20 02:32 Oxygen Flow Rate (L/min) 2 Oxygen Delivery Method Nasal Cannula Weight: 71.2 kg Body Mass Index (BMI) 24.5 Finger Stick Blood Glucose 135 Intake and Output for Last 24 Hours 04/14/20 04/15/20 04/16/20 23:59 23:59 23:59 Intake Total 2235.00 / 2235.00 960 / 1610 950 / 950 Output Total 850 / 850 1350 / 3200 3300 / 3300 Balance 1385.00 / 1385.00 -390 / -1590 -2350 / -2350 Microbiology Past 72 Hours 04/12/20 16:35 Mucosa - Nasopharyngeal Coronavirus COVID-19 PCR - Final Laboratory Results 04/15/20 06:05: Differential Comment SCANNED, Atypical Lymphocytes RARE, Polychromasia RARE, Hypochromasia RARE 04/15/20 06:05: B-Natriuretic Peptide 1571.8 H 04/15/20 11:00: Urine Color Yellow, Urine Clarity Sl. Cloudy, Urine pH 6.5, Ur Specific [place] 1.010, Urine Protein 30 H, Urine Glucose (UA) Normal, Urine Ketones Negative, Urine Occult Blood 10 H, Urine Nitrite Negative, Urine Bilirubin Negative, Urine Urobilinogen Normal, Ur Leukocyte Esterase 25 H, Urine RBC 0-5 SEEN, Urine WBC 0-5 SEEN, Ur Squamous Epith Cells 0-5 SEEN, Urine Bacteria 0 SEEN, Urine Mucus 0 SEEN 04/16/20 06:11: WBC 8.2, RBC 3.30 L, Hgb 9.4 L, Hct 28.7 L, MCV 87.0, MCH 28.5, MCHC 32.8, RDW Std Deviation 47.8 H, RDW Coeff of Alvarado 14.9 H, Plt Count 199, MPV 10.7, Immature Gran % (Auto) 1.100 H, Neut % (Auto) 69.0, Lymph % (Auto) 10.8 L, [place] % (Auto) 15.2 H, Eos % (Auto) 3.3, Baso % (Auto) 0.6, Absolute Neuts (auto) 5.6, Absolute Lymphs (auto) 0.88, Nucleated RBC % 0 04/16/20 06:11: Sodium 131 L, Potassium 4.0, Chloride 99, Carbon Dioxide 27.0, Anion Gap 5, BUN 22 H, Creatinine 1.01, Estim Creat Clear Calc 45.36, Est GFR (MDRD) Af Amer 68, Est GFR (MDRD) Non-Af 56 L, BUN/Creatinine Ratio 21.8 H, Glucose 142 H, Calcium 8.3 L, Magnesium 1.7 Current Medications Acetaminophen (Tylenol) 650 mg PO Q6H PRN PRN PRN Reason: Pain Score 1-10/Temp > 100.7 F Last Admin: 04/16/20 00:08 Dose: 650 mg Documented by: Al Hydroxide/Mg Hydroxide (Mylanta Ii) 30 ml PO Q6H PRN PRN PRN Reason: Gastric Burning Last Admin: 04/15/20 00:50 Dose: 30 ml Documented by: Albuterol Sulfate (Ventolin Aerosols) 2.5 mg INHALATION Q2H PRN PRN PRN Reason: Shortness of Breath/Wheezing Bisacodyl (Dulcolax) 10 mg PO DAILY PRN PRN PRN Reason: Constipation Last Admin: 04/15/20 20:10 Dose: 10 mg Documented by: Cephalexin (Keflex) 500 mg PO Q8 [facility] Last Admin: 04/16/20 05:21 Dose: 500 mg Documented by: Dextrose (D50w Syringe) 0 gm IV X1 PRN; Protocol PRN Reason: Hypoglycemia Docusate Sodium (Colace) 200 mg PO BID PRN PRN PRN Reason: Constipation Last Admin: 04/14/20 21:18 Dose: 200 mg Documented by: Duloxetine HCl (Cymbalta) 60 mg PO DAILY [facility] Last Admin: 04/15/20 09:11 Dose: 60 mg Documented by: Furosemide (Lasix) 40 mg IV BID@1000,1800 [facility] Last Admin: 04/15/20 18:51 Dose: 40 mg Documented by: Glucagon () 1 mg IM .X1 PRN PRN Reason: Hypoglycemia Guaifenesin (Robitussin) 20 ml PO Q4H PRN PRN PRN Reason: COUGH Last Admin: 04/15/20 22:50 Dose: 20 ml Documented by: Hydralazine HCl (Apresoline Iv) 10 mg IV Q4H PRN PRN PRN Reason: SBP > 160 Hydromorphone HCl (Dilaudid Inj) 0.5 mg IV Q4H PRN PRN PRN Reason: Pain Score 6-10/10 Last Admin: 04/13/20 07:47 Dose: 0.5 mg Documented by: Insulin Human Lispro (Humalog Kwikpen (Bkc)) 0 unit [facility]; Protocol Last Admin: 04/16/20 06:28 Dose: Not Given Documented by: Lorazepam (Ativan) 1 mg PO TID PRN PRN PRN Reason: ANXIETY Last Admin: 04/15/20 01:49 Dose: 1 mg Documented by: Mirtazapine (Remeron) 7.5 mg PO QHS [facility] Last Admin: 04/15/20 21:48 Dose: 7.5 mg Documented by: Ondansetron HCl (Zofran) 4 mg IV Q8H PRN PRN PRN Reason: NAUSEA/VOMITING Oxycodone HCl (Oxyir) 10 mg PO Q4H PRN PRN PRN Reason: Pain Score 4-5/10 Last Admin: 04/15/20 00:50 Dose: 10 mg Documented by: Pantoprazole Sodium (Protonix) 40 mg PO DAILY [facility] Last Admin: 04/15/20 09:10 Dose: 40 mg Documented by: Polyethylene Glycol (Miralax) 17 gm PO DAILY [facility] Last Admin: 04/15/20 09:11 Dose: 17 gm Documented by: Polysaccharide Iron Complex (Ferrex 150) 150 mg PO BID [facility] Last Admin: 04/15/20 21:48 Dose: 150 mg Documented by: Potassium Chloride (K-Dur) 20 meq PO DAILYCM [facility] Last Admin: 04/15/20 09:10 Dose: 20 meq Documented by: Prochlorperazine Edisylate (Compazine Iv) 5 mg IV Q4H PRN PRN PRN Reason: Breakthrough nausea/vomiting Promethazine HCl (Phenergan) 12.5 mg IM Q6H PRN PRN; Protocol PRN Reason: NAUSEA/VOMITING Rivaroxaban (Xarelto) 10 mg PO DAILY@1700 [facility] Sodium Chloride () 10 - 40 ml IV UD PRN PRN Reason: SALINE FLUSH Last Admin: 04/15/20 21:50 Dose: 10 ml Documented by: Throat Lozenges (Cepacol Sore Throat Lozenge) 1 lozenge MUCOUS MEM Q2H PRN PRN PRN Reason: SORE THROAT Last Admin: 04/16/20 00:10 Dose: 1 lozenge Documented by: Tizanidine HCl (Zanaflex) 2 mg PO TID [facility] Last Admin: 04/16/20 05:21 Dose: 2 mg Documented by: Trazodone HCl (Desyrel) 100 mg PO QHS PRN PRN PRN Reason: INSOMNIA Discharge Diet: No Restrictions Discharge Activity: May Not Drive, May Shower, Use Walker May shower in (days): 3 - only if incision is dry and without drainage. Do NOT soak/submerge in tub/pool/tapia/stream/hot tub. May resume sexual activity in: No Restrictions Ice area for (Minutes): 20 - every hour while awake Weight Bearing Status: Weight bearing as tolerated Keep extremity elevated above heart level: Operative Extremity Call your doctor if your incision/area has: Continuous Slow Oozing, Sudden Increased Bleeding, Increased Pain/ Swelling, Increased Redness, Foul Smelling Discharge Call your doctor if you observe: Fever of 101 or Higher, Inability to urinate, Inability to have a bowel movement, Shortness of breath, Fainting spells, Chest pain, Increased palpitations (irregular heartbeat), Calf discomfort, Uncontrolled pain Change Dressing in (Days):: 0 Remove Dressing in (days):: 8 Cleanse incision/area with: Soap & Water Home Medications: Medications to take at Discharge Duloxetine HCl 60 mg PO DAILY 11/23/18 Tizanidine HCl 2 mg PO TID 11/23/18 traZODone [Desyrel] 100 mg PO QHS 11/23/18 Lisinopril/Hydrochlorothiazide [Lisinopril-Hctz 20-12.5 mg Tab] 1 tab PO DAILY 12/19/19 Iron Polysaccharide Complex [Ferrex 150] 150 mg PO BID 12/23/19 Pantoprazole Sodium [Protonix] 40 mg PO DAILY 12/23/19 Acetaminophen [Tylenol] 1,000 mg PO Q6H PRN PRN tab 01/09/20 Mirtazapine [Remeron] 7.5 mg PO QHS #30 tab 01/09/20 Celecoxib [Celebrex] 100 mg PO DAILY 04/11/20 Potassium Chloride [K-Dur] 20 meq PO DAILY 04/11/20 Albuterol Aerosols [Ventolin Aerosols] 2.5 mg INHALATION Q2H PRN PRN vial.neb. 04/16/20 Bisacodyl [Dulcolax] 10 mg PO DAILY PRN PRN tab 04/16/20 Cephalexin [Keflex] 500 mg PO Q8 cap 04/16/20 Furosemide [Lasix] 40 mg PO DAILY #30 tab 04/16/20 Insulin Lispro [Humalog KwikPen] See Protocol SUBCUT ACHS insuln.pen 04/16/20 Lorazepam 1 mg PO TID #10 tab 04/16/20 Oxycodone [Oxyir] 10 mg PO Q4H PRN PRN 3 Days #10 tab 04/16/20 Polyethylene Glycol 3350 [Miralax] 17 gm PO DAILY packet 04/16/20 Rivaroxaban [Xarelto] 10 mg PO DAILY@1700 #20 tab 04/16/20 Following Prescrptions Were Given to Patient: Furosemide [Lasix] 40 mg PO DAILY #30 tab Prescription Printed Lorazepam 1 mg PO TID #10 tab Prescription Printed Oxycodone [Oxyir] 10 mg PO Q4H PRN PRN 3 Days #10 tab PRN Reason: Pain Score 4-5/10 Prescription Printed Rivaroxaban [Xarelto] 10 mg PO DAILY@1700 #20 tab Prescription Printed Primary Care Physician: Erick Christensen III, MD [Primary Care Provider] - Please Follow Up With: Knapic,Cedric, DO When: call for appt, Disposition: Residential facility Minutes spent on discharge:: 45 Patient Condition:: Stable Medical Necessity - Tobacco Use Smoking Status: Never smoker Tobacco Use: Non-smoker Meaningful Use Info Meaningful Use Diagnoses (Choose all that apply): CHF - CHF MELISSA/ARB ordered at discharge?: Yes Documented LVEF (%): 55 Inpatient E&M: 17628 Disch Hosp
[2020-04-16] MEDS: DULoxetine Hcl 60 MG Capsule PO (08:55)
[2020-04-16] MEDS: Iron Polysaccharide Complex 150 MG CAPSULE PO (08:56)
[2020-04-16] MEDS: Polyethylene Glycol 3350 17 GM PACKET PO (08:56)
[2020-04-16] MEDS: 0.9% Saline Lock 10 ML Syringe IV (08:56)
[2020-04-16] MEDS: Pantoprazole Sodium 40 MG Tablet PO (08:57)
--- NOTE | 2020-04-16 09:41 | CASEMGMT ---
Social Work Pt ready for discharge on this date. SW met with pt and pt confirms plan to discharge to [facility] and would like to use [facility]. Transportation arranged for 1030 burr picker. CATARINO left with Rubi at [facility] and orders faxed. 7000 form completed in [employer] system. Phone call to pt alex [place] and informed of discharge plan. Nursing made aware. ZAHIRA Lowe
[2020-04-16] MEDS: Furosemide 40 MG Tablet PO (10:06)
[2020-04-16] MEDS: oxyCODONE 5 MG Tablet 10 MG PO (10:08)
== END 2020-04-16 10:35 | disposition skilled nursing facility (03) | DRG 469 ==
LOC: ED 20:59 → MS3 04-12 00:20
PROVIDERS: Anesthesiology; Internal Medicine; Orthopaedic Surgery; Physician Assistant; Admitting Provider Family Medicine; Emergency Provider Emergency Medicine; PCP Family Medicine; Referring Provider Family Medicine; Visit Provider Internal Medicine
PROC: 0SRS0J9 Replacement of Left Hip Joint, Femoral Surface with Synthetic Substitute, Cemented, Open Approach (ICD-10-PCS; CPT 27125; principal; 2020-04-13 13:20)
DX: S72.012A Unspecified intracapsular fracture of left femur, initial encounter for closed fracture (principal); I50.33 Acute on chronic diastolic (congestive) heart failure; E87.1 Hypo-osmolality and hyponatremia; I13.0 Hypertensive heart and chronic kidney disease with heart failure and stage 1 through stage 4 chronic kidney disease, or unspecified chronic kidney disease; S62.617A Displaced fracture of proximal phalanx of left little finger, initial encounter for closed fracture; W01.0XXA Fall on same level from slipping, tripping and stumbling without subsequent striking against object, initial encounter; Y93.01 Activity, walking, marching and hiking; Y92.000 Kitchen of unspecified non-institutional (private) residence as the place of occurrence of the external cause; N18.3 Chronic kidney disease, stage 3 (moderate); D50.9 Iron deficiency anemia, unspecified; M19.90 Unspecified osteoarthritis, unspecified site; G89.4 Chronic pain syndrome; F41.8 Other specified anxiety disorders; M21.371 Foot drop, right foot; K21.9 Gastro-esophageal reflux disease without esophagitis; R73.9 Hyperglycemia, unspecified; R91.1 Solitary pulmonary nodule; E83.42 Hypomagnesemia; I27.20 Pulmonary hypertension, unspecified; I95.9 Hypotension, unspecified; R00.0 Tachycardia, unspecified; R33.9 Retention of urine, unspecified; R50.9 Fever, unspecified
CPT/HCPCS: 36415; 51702; 71045; 71046; 71275; 73140; 73502; 80048; 81001; 82962; 83735; 83880; 84100; 84443; 85025; 85610; 85730; 86850; 86900; 86901; 86920; 87086; 87635; 88305; 88311; 93005; 93306; 96365; 96375; 97110; 97116; 97162; 97166; 97530; 97802; 97803; 99251; 99285; C1776; G2023; J7030; J7040; P9016; Q9967; A4216; G0463; J1940; J2405; U0002

== ENCOUNTER → 2020-06-04 17:07 | Outpatient (CLI) | payer MEDICARE, SELFPAY ==
[2020-04-13 10:33] VITALS: BMI 24.5
[2020-06-04 17:18] LABS: Hematocrit 32.7 % (37-47); Hemoglobin 10.8 g/dL (12.0-15.0); Mean Corpuscular Hgb 28.1 pg (27.0-32.0); Mean Corpuscular Volume 84.9 fL (81-99); Mean Platelet Vol. 10.1 fl (6.2-12.0); Platelet Count 305 K/mm3 (150-450); RBC Distribution Width CV 14.4 % (11.6-14.6); RBC Distribution Width SD 44.7 fl (35.1-43.9); Red Blood Count 3.85 M/mm3 (4.2-5.4); White Blood Count 6.5 K/mm3 (4.4-11.0)
== END ==
PROVIDERS: PCP Family Medicine; Referring Provider Family Medicine; Visit Provider Family Medicine
DX: R79.9 Abnormal finding of blood chemistry, unspecified (principal)
CPT/HCPCS: 85027

== ENCOUNTER 2020-08-29 20:49 | Inpatient (IN) | payer MEDICARE, SELFPAY ==
[2020-04-13 10:33] VITALS: BMI 24.5
[2020-08-29 20:50] VITALS: BP 156/101; PULSE 103; RESP 16; TEMP 37.4; O2SAT 98; BMI 26.3
[2020-08-29 20:53] VITALS: BP 156/101; PULSE 103; RESP 16; TEMP 37.4; O2SAT 98
--- NOTE | 2020-08-29 21:04 | CT_ITS ---
STUDY: CT BRAIN WITHOUT CONTRAST REASON FOR EXAM: Female, 80 years old. HEAD TRAUMA WITH ALTERED LEVEL OF CONSCIOUSNESS. Increasing falls and dragging rt foot. Hx of HTN, OA and GERD RADIATION DOSAGE (If Supplied By Facility): CTDIvol = ( 44.99 ) mGy, DLP = ( 745.49 ) mGycm TECHNIQUE: Transaxial CT imaging of the brain was performed without administration of intravenous contrast material. Individualized dose optimization techniques were used for this CT. COMPARISON: 12/19/2019. FINDINGS: Normal soft tissue structures. Normal calvarium. There is moderate cerebral atrophy with widening of the extra-axial spaces and ventricular dilatation. There are areas of decreased attenuation within the white matter tracts of the supratentorial brain, consistent with microvascular disease changes. Normal basal ganglia and thalami. Normal brainstem. Normal cerebellum. There is no intracranial hemorrhage. There are no findings of an acute ischemic infarction. Normal visualized paranasal sinuses. CT/Brain/Head without Contrast IMPRESSION: 1. No acute findings. 2. Microvascular ischemia. Atrophy. Electronically Signed: Lu Loera MD at 22:00 EDT Tel , Service support ,
--- NOTE | 2020-08-29 21:05 | EKG12_ITS ---
Test Reason : WEAKNESS Blood Pressure : / mmHG Vent. Rate : 099 BPM Atrial Rate : 099 BPM P-R Int : 150 ms QRS Dur : 110 ms QT Int : 366 ms P-R-T Axes : 036 -26 106 degrees QTc Int : 469 ms Normal sinus rhythm Incomplete left bundle branch block Left ventricular hypertrophy with repolarization abnormality Abnormal ECG Confirmed by SERJIO MEADE, SHANIQUE ([id number]), video editor REYNA WHITMORE ([id number]) on 09/02/2020 9:58:59 AM Referred By: Marvin Zurita Confirmed By:SHANIQUE BASSETT MD
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
[2020-08-29 21:12] LABS: Absolute Lymphocyte Count 0.74 X10^3/uL (0.83-4.51); Absolute Neutrophil Count 5.8 X10^3/uL (2.0-7.7); Basophil# 0.07 X10^3/uL; Basophil% 0.9 % (0-1); Eosinophils% 1.3 % (0-5); Hematocrit 29.2 % (37-47); Hemoglobin 9.3 g/dL (12.0-15.0); Lymphocyte # 0.74 X10^3/ul (4.0); Lymphocyte % 9.8 % (19-41); Mean Corp Hgb Conc 31.8 g/dL (32-36); Mean Corpuscular Hgb 26.1 pg (27.0-32.0); Mean Platelet Vol. 9.2 fl (6.2-12.0); Monocyte# 0.85 X10^3/uL; Monocyte% 11.2 % (0-10); NRBC Flagged by Analyzer 0 % (0-5); Neutrophil # 5.75 X10^3/uL (2.7-7.7); Platelet Count 334 K/mm3 (150-450); RBC Distribution Width CV 13.9 % (11.6-14.6); RBC Distribution Width SD 41.4 fl (35.1-43.9); Red Blood Count 3.56 M/mm3 (4.2-5.4); White Blood Count 7.6 K/mm3 (4.4-11.0)
[2020-08-29 21:28] LABS: AST(SGOT) 14 U/L (15-37); Alanine Aminotransfer ALT/SGPT 16 U/L (13-56); Albumin, Serum 3.4 g/dL (3.2-5.0); Alkaline Phosphatase 116 U/L (45-117); Anion Gap 7 (5-15); BUN 14 mg/dL (7-18); BUN/Creat Ratio 13.2 RATIO (10-20); Calcium,Total 8.6 mg/dL (8.5-10.1); Chloride 88 mmol/L (98-107); Creatinine, Serum 1.06 mg/dL (0.55-1.02); EST Glomerular Filtration Rate 53 mL/min (>60); Est Glom Filt Rate - Afr Amer 64 mL/min (>60); Estimated Creatinine Clearance 42.54 ml/min; Globulin 3.5 g/dL (2.2-4.2); Glucose 213 mg/dL (74-106); Potassium 4.1 mmol/L (3.5-5.1); Protein, Total 6.9 g/dL (6.4-8.2); Sodium Level 121 mmol/L (136-145)
[2020-08-29 21:42] LABS: Lactic Acid 0.9 mmol/L (0.4-1.9)
[2020-08-29 22:15] LABS: Mucous, Urine 0 SEEN /hpf (<or=2+); Squamous Epithelial Cells - UA 0 SEEN /hpf (5-10)
[2020-08-29 22:17] VITALS: BP 144/93; PULSE 91; RESP 13; TEMP 36.3; O2SAT 100
[2020-08-29 22:24] LABS: Color, Urine Amber (Yellow); Glucose, Dipstick Normal (Normal); Ketone-Dipstick Negative (Negative); Leukocyte Esterase-Dipstick 500 /ul (Negative); Nitrite-Dipstick Positive (Negative); Occult Blood-Urine 10 /ul (Negative); Protein-Dipstick 30 mg/dl (Negative); Specific Gravity, Urine 1.015 (1.002-1.030); Urine Clarity Cloudy (Clear); Urine Urobilinogen 8 mg/dl (Normal)
[2020-08-29 22:27] LABS: Urine Bilirubin Dipstick 3 mg/dL (Negative)
[2020-08-29 22:33] LABS: White Blood Cells 25-50 SEEN /hpf (0-5)
[2020-08-29 22:34] LABS: Bacteria 3+ /hpf (None Seen); Red Blood Cells-Urine 0-5 SEEN /hpf (0-5)
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
[2020-08-29 23:07] VITALS: BP 146/93; PULSE 94; RESP 16; TEMP 36.3; O2SAT 99
[2020-08-29 23:21] VITALS: BP 146/93; PULSE 91; RESP 17; TEMP 36.3; O2SAT 100
[2020-08-29] MEDS: Ceftriaxone 1 GM/50 ML BAG IV (23:21)
[2020-08-30] VITALS (13 sets, daily range): BP systolic 108–160; BP diastolic 74–95; PULSE 79–106; RESP 16–20; TEMP 36.6–36.9; O2SAT 95–100; BMI 25.5; BMI 25.6
[2020-08-30] MEDS: tiZANidine HCl 2 MG Tablet PO ×4 (01:19→21:37)
[2020-08-30] MEDS: Mirtazapine 15 MG Tablet 7.5 MG PO ×2 (01:19→21:36)
[2020-08-30] MEDS: 0.9% Normal Saline 1,000 ML 75 ML IV ×2 (01:20→12:23)
[2020-08-30] MEDS: Acetaminophen 325 MG Tablet 650 MG PO ×3 (03:20→19:19)
[2020-08-30 05:43] LABS: Osmolality, Serum 261 mOsm/KG (280-301)
[2020-08-30 06:35] LABS: Bedside Glucose 250 mg/dL (70-110)
[2020-08-30] MEDS: Insulin Lispro 100 UNIT/ML INSULN.PEN SC ×4 (06:36→21:34)
[2020-08-30 06:47] LABS: Absolute Lymphocyte Count 0.92 X10^3/uL (0.83-4.51); Absolute Neutrophil Count 5.2 X10^3/uL (2.0-7.7); Basophil# 0.06 X10^3/uL; Basophil% 0.8 % (0-1); Eosinophil# 0.16 X10^3/uL; Eosinophils% 2.2 % (0-5); Hematocrit 30.1 % (37-47); Hemoglobin 9.4 g/dL (12.0-15.0); Lymphocyte # 0.92 X10^3/ul (4.0); Lymphocyte % 12.8 % (19-41); Mean Corp Hgb Conc 31.2 g/dL (32-36); Mean Corpuscular Hgb 26.3 pg (27.0-32.0); Mean Corpuscular Volume 84.3 fL (81-99); Mean Platelet Vol. 9.6 fl (6.2-12.0); Monocyte# 0.76 X10^3/uL; Monocyte% 10.6 % (0-10); NRBC Flagged by Analyzer 0 % (0-5); Neutrophil # 5.22 X10^3/uL (2.7-7.7); Neutrophil % 72.9 % (47-70); Platelet Count 352 K/mm3 (150-450); RBC Distribution Width SD 43.4 fl (35.1-43.9); Red Blood Count 3.57 M/mm3 (4.2-5.4); White Blood Count 7.2 K/mm3 (4.4-11.0)
[2020-08-30 07:25] LABS: Anion Gap 7 (5-15); BUN 13 mg/dL (7-18); BUN/Creat Ratio 12.4 RATIO (10-20); Calcium,Total 8.6 mg/dL (8.5-10.1); Chloride 89 mmol/L (98-107); Creatinine, Serum 1.05 mg/dL (0.55-1.02); EST Glomerular Filtration Rate 54 mL/min (>60); Est Glom Filt Rate - Afr Amer 65 mL/min (>60); Estimated Creatinine Clearance 42.94 ml/min; Glucose 200 mg/dL (74-106); Potassium 3.5 mmol/L (3.5-5.1); Sodium Level 123 mmol/L (136-145); Thyroid Stim Hormone (TSH) 1.39 uIU/mL (0.358-3.74); Uric Acid 2.6 mg/dL (2.6-6.0)
--- NOTE | 2020-08-30 08:21 | PCM.PROGNOTE ---
Patient Problems: Active and Suspected Problems Acute on chronic hyponatremia (Acute) Hyperglycemia (Acute) Recurrent falls (Acute) Acute cystitis (Acute) Subjective: Chief complaint: Follow-up after admission for acute cystitis, recurrent falls, hyperglycemia, debility and acute on chronic hyponatremia. Patient seen and examined. No acute events overnight. She is alert and oriented x3, knew her full name, date of , knew the location, knew the month and year but not the day. She seemed to be repeating herself multiple times although she was oriented x3. She denied any complaints apart from backache. Denied chest pain or shortness of breath. Denied abdominal pain, nausea or vomiting. Denied focal weakness. She is afebrile, blood pressure and heart rate are stable, pulse ox is 95% on room air. - Physical Exam Vitals/I&O's: Vital Signs Temp Pulse Resp BP Pulse Ox 97.9 F 92 18 108/74 95 08/30/20 06:25 08/30/20 06:50 08/30/20 06:25 08/30/20 06:25 08/30/20 06:25 Oxygen Delivery Method Room Air Weight: 163 lb 2.273 oz Body Mass Index (BMI) 25.5 Finger Stick Blood Glucose 135 Intake and Output for Last 24 Hours 08/28/20 08/29/20 08/30/20 23:59 23:59 23:59 Intake Total 320 / 320 Output Total 100 / 100 Balance 220 / 220 General: Alert, Oriented x3, Cooperative, No apparent distress HEENT: Atraumatic, PERRLA, EOMI, Normocephalic Oral: Moist Mucosa, No Gingival or Mucosal Lesions/ Ulcerations Neck: Supple, No JVD, Negative Carotid Bruits, Trachea Midline, Thyroid Normal Size and Texture Lungs: Clear to auscultation, Normal air movement, No rhonchi, No wheeze, No rales Cardiovascular: Regular rate, Regular Rhythm, Normal S1, Normal S2, PMI Normal Abdomen: Bowel Sounds Present, Soft, Non Tender, Non-Distended, No Hepato-splenomegaly Extremities: No clubbing, No cyanosis, No edema Skin: No rashes, No breakdown Lymphatic: No Cervical, Supraclavicular, or Inguinal Adenopathy Neurological: Cranial nerves II-XII grossly intact, Motor Exam 5/5 strength throughout Psych/Mental Status: Normal Affect, Appropriate Laboratory Results 08/29/20 20:55: WBC 7.6, RBC 3.56 L, Hgb 9.3 L, Hct 29.2 L, MCV 82.0, MCH 26.1 L, MCHC 31.8 L, RDW Std Deviation 41.4, RDW Coeff of Alvarado 13.9, Plt Count 334, MPV 9.2, Immature Gran % (Auto) 0.800, Neut % (Auto) 76.0 H, Lymph % (Auto) 9.8 L, [place] % (Auto) 11.2 H, Eos % (Auto) 1.3, Baso % (Auto) 0.9, Absolute Neuts (auto) 5.8, Absolute Lymphs (auto) 0.74 L, Nucleated RBC % 0 08/29/20 20:55: Sodium 121 L, Potassium 4.1, Chloride 88 L, Carbon Dioxide 26.0, Anion Gap 7, BUN 14, Creatinine 1.06 H, Estim Creat Clear Calc 42.54, Est GFR (MDRD) Af Amer 64, Est GFR (MDRD) Non-Af 53 L, BUN/Creatinine Ratio 13.2, Glucose 213 H, Calcium 8.6, Total Bilirubin 0.60, AST 14 L, ALT 16, Alkaline Phosphatase 116, Total Protein 6.9, Albumin 3.4, Globulin 3.5, Albumin/Globulin Ratio 1.0 08/29/20 20:55: Serum Osmolality 261 L 08/29/20 21:12: Lactic Acid 0.9 08/29/20 22:10: Urine Color Elisa, Urine Clarity Cloudy, Urine pH 8.0, Ur Specific [place] 1.015, Urine Protein 30 H, Urine Glucose (UA) Normal, Urine Ketones Negative, Urine Occult Blood 10 H, Urine Nitrite Positive H, Urine Bilirubin 3 H, Urine Urobilinogen 8 H, Ur Leukocyte Esterase 500 H, Urine RBC 0-5 SEEN, Urine WBC 25-50 SEEN, Ur Squamous Epith Cells 0 SEEN, Urine Bacteria 3+, Urine Mucus 0 SEEN 08/30/20 05:10: WBC 7.2, RBC 3.57 L, Hgb 9.4 L, Hct 30.1 L, MCV 84.3, MCH 26.3 L, MCHC 31.2 L, RDW Std Deviation 43.4, RDW Coeff of Alvarado 14.0, Plt Count 352, MPV 9.6, Immature Gran % (Auto) 0.700, Neut % (Auto) 72.9 H, Lymph % (Auto) 12.8 L, [place] % (Auto) 10.6 H, Eos % (Auto) 2.2, Baso % (Auto) 0.8, Absolute Neuts (auto) 5.2, Absolute Lymphs (auto) 0.92, Nucleated RBC % 0 08/30/20 05:10: Sodium 123 L, Potassium 3.5, Chloride 89 L, Carbon Dioxide 27.0, Anion Gap 7, BUN 13, Creatinine 1.05 H, Estim Creat Clear Calc 42.94, Est GFR (MDRD) Af Amer 65, Est GFR (MDRD) Non-Af 54 L, BUN/Creatinine Ratio 12.4, Glucose 200 H, Uric Acid 2.6, Calcium 8.6, TSH 1.39 08/30/20 05:10: Hemoglobin A1c Pending 08/30/20 05:10: Cortisol Pending 08/30/20 05:10: Vitamin B12 Pending, Vitamin D 25-Hydroxy Pending 08/30/20 06:33: POC Glucose 250 H Clinical Impression(s) from Imaging Studies Brain CT 08/29/20 21:04 IMPRESSION: 1. No acute findings. 2. Microvascular ischemia. Atrophy. Electronically Signed: Lu Loera MD at 22:00 EDT Tel , Service support , Current Medications Acetaminophen (Tylenol) 650 mg PO Q6H PRN PRN PRN Reason: Pain Score 1-10/Temp > 100.7 F Last Admin: 08/30/20 03:20 Dose: 650 mg Documented by: Bromfenac Sodium (Prolensa) 1 drop RIGHT EYE QHS [facility] Last Admin: 08/30/20 03:21 Dose: 1 drop Documented by: Dextrose (D50w Syringe) 0 gm IV X1 PRN; Protocol PRN Reason: Hypoglycemia Duloxetine HCl (Cymbalta) 60 mg PO DAILY [facility] Enoxaparin Sodium (Lovenox) 40 mg SC DAILY [facility] Glucagon () 1 mg IM .X1 PRN PRN Reason: Hypoglycemia Sodium Chloride () 1,000 mls @ 75 mls/hr IV .[id number] [facility] Last Infusion: 08/30/20 01:44 Dose: 75 mls/hr Documented by: Ceftriaxone Sodium (Rocephin) 1 gm in 50 mls @ 100 mls/hr IV Q24@2200 [facility] Sodium Chloride () 250 mls @ 15 mls/hr IV .[id number] PRN PRN Reason: Saline Flush Sodium Chloride () 250 mls @ 15 mls/hr IV .[id number] PRN PRN Reason: Additional IVPB Infusion Influenza Virus Vaccine Quadrival (Flucelvax /Fluzone ) 0.5 ml IM .ONCE ONE Stop: 08/30/20 10:01 Insulin Human Lispro (Humalog Kwikpen (Bkc)) 0 unit SC [facility]; Protocol Last Admin: 08/30/20 06:36 Dose: 3 u Documented by: Lisinopril (Zestril) 20 mg PO DAILY [facility] Loratadine (Claritin) 10 mg PO DAILY [facility] Mirtazapine (Remeron) 7.5 mg PO QHS [facility] Last Admin: 08/30/20 01:19 Dose: 7.5 mg Documented by: Ofloxacin (Ofloxacin) 1 ml RIGHT EYE 4X/DAY [facility] Ondansetron HCl (Zofran) 4 mg IV Q8H PRN PRN PRN Reason: NAUSEA/VOMITING Pantoprazole Sodium (Protonix) 40 mg PO DAILY [facility] Polysaccharide Iron Complex (Ferrex 150) 150 mg PO BID [facility] Senna (Senokot) 2 tablet PO DAILY [facility] Sodium Chloride () 10 - 40 ml IV UD PRN PRN Reason: SALINE FLUSH Tizanidine HCl (Zanaflex) 2 mg PO TID [facility] Last Admin: 08/30/20 06:36 Dose: 2 mg Documented by: Medical Necessity - Tobacco Use Smoking Status: Never smoker Assessment/Plan All Active Problems Acute on chronic hyponatremia (Acute) Hyperglycemia (Acute) Recurrent falls (Acute) Acute cystitis (Acute) This is a 80 years old female patient presented to the emergency room because of change in mental status, multiple falls and she was found to have acute cystitis, hyperglycemia without history of diabetes. #1 acute cystitis: She is on IV Rocephin. She is afebrile, no leukocytosis. Urine cultures pending. Plan to continue same treatment. #3 encephalopathy: Probably delirium due to infection and hyponatremia may be contributing. Apparently and at baseline, patient is kind of repeating herself and according to the family, her mental status close to her baseline. Today, patient is alert and noted x3, she does not know the day but she knew the month and year. CT scan brain showed no acute findings. Plan for supportive treatment. #4 recurrent falls/debility/close injury: As mentioned above CT scan brain showed no acute findings. Patient lives alone at home. Family is worried about her going back home by herself but patient refused to go to shelter facility. Plan for PT OT evaluation and treatment, consult perinatal social worker and case filler. #4 hyperglycemia: Without history of diabetes. She is on sliding scale and Accu-Cheks. Hemoglobin A1c is pending. #5 acute on chronic hyponatremia: She does have chronic hyponatremia, her sodium has been in the range of 125-130, admission sodium was 121, improved to 123 with IV fluids. Could be due to HCTZ. Urine sodium and urine osmolality are pending. Plan to repeat BMP tomorrow morning. #6 stage III chronic kidney disease: Baseline creatinine has been around 1 to 1.3 mg/dL. Her GFR has been always in the range of around 50s consistent with stage III chronic disease. Both BUN and creatinine at baseline, stable, plan to monitor. #7 hypertension: Blood pressure stable, continue lisinopril, keep holding HCTZ. #8 anxiety and depression: Continue Cymbalta, Remeron. #9 chronic anemia: Hemoglobin stable at baseline, no active bleeding, no indication for transfusion. #10 DVT prophylaxis: Subcu Lovenox. This note was generated with [email or web address] dictation software. It may contain incorrect words, spelling, and punctuation that were not noted in checking the note before signing. Inpatient E&M: 28904 Subs Hosp L2
[2020-08-30 09:09] LABS: Hemoglobin A1c 7.9 % (3.8-5.6)
[2020-08-30] MEDS: Loratadine 10 MG Tablet PO (10:37)
[2020-08-30] MEDS: DULoxetine Hcl 60 MG Capsule PO (10:37)
[2020-08-30] MEDS: Pantoprazole Sodium 40 MG Tablet PO (10:38)
[2020-08-30] MEDS: OFLOXACIN 5 ML DROPS 1 ML RIGHT EYE ×4 (10:38→21:37)
[2020-08-30] MEDS: Iron Polysaccharide Complex 150 MG CAPSULE PO ×2 (10:38→21:37)
[2020-08-30] MEDS: Senna Tablet 2 TABLET PO (10:38)
[2020-08-30] MEDS: Lisinopril 20 MG Tablet PO (10:38)
[2020-08-30] MEDS: Enoxaparin 40 MG/0.4 ML Syringe SC (10:38)
[2020-08-30 12:41] LABS: Bedside Glucose 224 mg/dL (70-110)
[2020-08-30 15:41] LABS: Urine Sodium 35 mmol/L (Not Establ.)
[2020-08-30 15:55] LABS: Osmolality, Urine 308 mOsm/KG
[2020-08-30 17:16] LABS: Bedside Glucose 216 mg/dL (70-110)
[2020-08-30] MEDS: Ceftriaxone 1 GM/50 ML BAG IV (21:35)
[2020-08-30 22:26] LABS: Bedside Glucose 185 mg/dL (70-110)
[2020-08-31] VITALS (8 sets, daily range): BP systolic 116–153; BP diastolic 74–91; PULSE 72–100; RESP 16–18; TEMP 36.6–36.7; O2SAT 97–99
[2020-08-31] MEDS: 0.9% Normal Saline 1,000 ML 75 ML IV (01:28)
[2020-08-31] MEDS: tiZANidine HCl 2 MG Tablet PO ×2 (06:54→13:28)
[2020-08-31] MEDS: Insulin Lispro 100 UNIT/ML INSULN.PEN SC ×2 (06:55→11:40)
[2020-08-31 07:01] LABS: Bedside Glucose 185 mg/dL (70-110)
[2020-08-31 08:21] LABS: Hematocrit 30.3 % (37-47); Hemoglobin 9.5 g/dL (12.0-15.0); Mean Corp Hgb Conc 31.4 g/dL (32-36); Mean Corpuscular Hgb 26.2 pg (27.0-32.0); Mean Corpuscular Volume 83.7 fL (81-99); Mean Platelet Vol. 8.9 fl (6.2-12.0); Platelet Count 329 K/mm3 (150-450); RBC Distribution Width CV 14.2 % (11.6-14.6); Red Blood Count 3.62 M/mm3 (4.2-5.4); White Blood Count 5.5 K/mm3 (4.4-11.0)
[2020-08-31 08:31] LABS: Anion Gap 4 (5-15); BUN 12 mg/dL (7-18); BUN/Creat Ratio 13.2 RATIO (10-20); Calcium,Total 8.7 mg/dL (8.5-10.1); Chloride 98 mmol/L (98-107); Creatinine, Serum 0.91 mg/dL (0.55-1.02); EST Glomerular Filtration Rate 64 mL/min (>60); Est Glom Filt Rate - Afr Amer 77 mL/min (>60); Estimated Creatinine Clearance 49.55 ml/min; Glucose 153 mg/dL (74-106); Potassium 3.8 mmol/L (3.5-5.1); Sodium Level 130 mmol/L (136-145)
[2020-08-31] MEDS: Enoxaparin 40 MG/0.4 ML Syringe SC (08:53)
[2020-08-31] MEDS: Iron Polysaccharide Complex 150 MG CAPSULE PO (08:53)
[2020-08-31] MEDS: DULoxetine Hcl 60 MG Capsule PO (08:53)
[2020-08-31] MEDS: Pantoprazole Sodium 40 MG Tablet PO (08:53)
[2020-08-31] MEDS: Acetaminophen 325 MG Tablet 650 MG PO (08:53)
[2020-08-31] MEDS: Loratadine 10 MG Tablet PO (08:53)
[2020-08-31] MEDS: Lisinopril 20 MG Tablet PO (08:54)
[2020-08-31] MEDS: Senna Tablet 2 TABLET PO (08:54)
[2020-08-31] MEDS: OFLOXACIN 5 ML DROPS 1 ML RIGHT EYE ×2 (08:57→13:28)
--- NOTE | 2020-08-31 10:31 | PCM.DC ---
- Discharge Diagnoses Current Active Problems: Current Active and Chronic Problems Acute on chronic hyponatremia (Acute) Hyperglycemia (Acute) Recurrent falls (Acute) Acute cystitis (Acute) You will use the following diet at home:: No restrictions Discharge Activity: Return to Normal Activity Allergies/Adverse Reactions: Allergies morphine Adverse Reaction (Verified 08/29/20 20:54) delirium Medications to take at Discharge Duloxetine HCl 60 mg PO DAILY 11/23/18 Tizanidine HCl 2 mg PO TID 11/23/18 traZODone [Desyrel] 100 mg PO QHS 11/23/18 Iron Polysaccharide Complex [Ferrex 150] 150 mg PO DAILY 12/23/19 Pantoprazole Sodium [Protonix] 40 mg PO DAILY 12/23/19 Potassium Chloride [K-Dur] 20 meq PO DAILY 04/11/20 Cetirizine HCl [Zyrtec] 10 mg PO DAILY 08/29/20 Guaifenesin [Mucinex] 600 mg PO BID 08/29/20 Phenazopyrid/Cran/Vit C/B.coag [Azo Urinary Tract Health Pack] 1 ea PO TID 08/29/20 Senna [Senokot] 2 tab PO DAILY 08/29/20 Bromfenac Sodium [Bromsite] 1 drp RIGHT EYE QHS 08/30/20 Mirtazapine [Remeron] 7.5 mg PO QHS 08/30/20 Ofloxacin 0.3% [Floxin 0.3% Otic] 1 drp RIGHT EYE 4X/DAY 08/30/20 Cephalexin [Keflex] 500 mg PO Q8 #21 cap 08/31/20 Lisinopril [Zestril] 20 mg PO DAILY #90 tab 08/31/20 The following prescriptions were given: Cephalexin [Keflex] 500 mg PO Q8 #21 cap Transmission Status: Pending to [facility] Lisinopril [Zestril] 20 mg PO DAILY #90 tab Transmission Status: Pending to [facility] Primary Care Physician: Erick Christensen III, MD [Primary Care Provider] - Please follow up with your Primary Care Physician in: IN 1 WEEK Test Results: Test results from this visit will be discussed in further detail at your follow-up appointment, if applicable. Proposed Discharge Date: 08/31/20
--- NOTE | 2020-08-31 10:38 | DS.PCM_ITS ---
Discharge Date and Diagnosis - Problem List Patient Problems: Active and Suspected Problems Acute on chronic hyponatremia (Acute) Hyperglycemia (Acute) Recurrent falls (Acute) Acute cystitis (Acute) Date of Admission: 08/29/20 Date of Discharge: 08/31/20 - Primary Discharge Diagnosis Acute Problems: Active Problems Acute on chronic hyponatremia (Acute) Hyperglycemia (Acute) Recurrent falls (Acute) Acute cystitis (Acute) - Secondary Discharge Diagnosis Chronic Problems: Chronic Problems Chronic pain (Chronic) Opioid dependence (Chronic) Congestive heart failure (Chronic) Iron deficiency anemia (Chronic) Osteoarthritis (Chronic) Neuropathic pain (Chronic) Insomnia (Chronic) CKD (chronic kidney disease), stage III (Chronic) Chronic pain disorder (Chronic) Hypertension (Chronic) Anxiety and depression (Chronic) Right foot drop (Chronic) Chronic anemia (Chronic) Hospital Course and Treatment Operations: None Summary of Care Provided: The patient is a 80 year old F admitted with multiple falls and altered mental status found to have acute cystitis 1. Acute cystitis secondary to Proteus mirabilis ?Patient admitted to regular nursing floor managed with Rocephin. Cultures came back positive for Proteus. Patient was discharged home on Keflex based on sensitivities 2. Acute encephalopathy ?Secondary to infectious encephalopathy from above treatment as discussed above 3. Physical deconditioning - Requested for PT OT eval and social service worker to assist with discharge planning 4. Acute on chronic hyponatremia ?Secondary to patient being on HCTZ this was discontinued resuscitated with IV fluids 5. Essential potential ?Patient was on both lisinopril and HCTZ HCTZ was discontinued due to patient's hyponatremia 6. Acute kidney injury ?Resolved with rehydration 7. Depression with anxiety ?Discontinue patient home regimen 8. Anemia - Secondary to chronic disorder monitoring H&H and transfuse if patient becomes symptomatic or hemoglobin falls below 7 9. New onset diabetes mellitus type 2 ?Patient was found to be hyperglycemic during her hospital stay. Hemoglobin A1c obtained came back at 7.9. Patient did receive diabetic education and prescribed metformin on discharge 10. DVT prophylaxis - On enoxaparin Patient Problems: Active and Suspected Problems Acute on chronic hyponatremia (Acute) Hyperglycemia (Acute) Recurrent falls (Acute) Acute cystitis (Acute) Objective: GENERAL: cooperative HEENT: Atraumatic; EYES; Anicteric, Normal Conjunctiva NECK; supple, normal thyroid, RESPIRATORY: Diminished to auscultation CARDIOVASCULAR: Regular S1 S2, GI: soft, normoactive bowel sounds, : No Renal angle tenderness; EXTREMITIES: No edema, no clubbing, MUSCULOSKELETAL: no muscle waisting NEURO: Awake; no lateralizing signs. SKIN: No Rash PSYCH; Flat affect - Physical Exam Vitals/I&O's: Vital Signs Temp Pulse Resp BP Pulse Ox 98.0 F 72 18 116/74 97 08/31/20 08:50 08/31/20 08:50 08/31/20 08:50 08/31/20 08:50 08/31/20 08:50 Oxygen Delivery Method Room Air Weight: 74 kg Body Mass Index (BMI) 25.5 Finger Stick Blood Glucose 135 Intake and Output for Last 24 Hours 08/29/20 08/30/20 08/31/20 23:59 23:59 23:59 Intake Total 1890 / 1890 1381.25 / 1381.25 Output Total 1200 / 1200 800 / 800 Balance 690 / 690 581.25 / 581.25 Microbiology Past 72 Hours 08/29/20 22:10 Urine, Clean Catch Urine Culture - Final Proteus mirabilis Laboratory Results 08/30/20 12:14: POC Glucose 224 H 08/30/20 15:00: Urine Osmolality 308 08/30/20 15:00: Ur Random Sodium 35 08/30/20 16:59: POC Glucose 216 H 08/30/20 21:34: POC Glucose 185 H 08/31/20 06:55: POC Glucose 185 H 08/31/20 08:10: WBC 5.5, RBC 3.62 L, Hgb 9.5 L, Hct 30.3 L, MCV 83.7, MCH 26.2 L , MCHC 31.4 L, RDW Std Deviation 44.0 H, RDW Coeff of Alvarado 14.2, Plt Count 329, MPV 8.9 08/31/20 08:10: Sodium 130 L, Potassium 3.8, Chloride 98, Carbon Dioxide 28.0, Anion Gap 4 L, BUN 12, Creatinine 0.91, Estim Creat Clear Calc 49.55, Est GFR (MDRD) Af Amer 77, Est GFR (MDRD) Non-Af 64, BUN/Creatinine Ratio 13.2, Glucose 153 H, Calcium 8.7 Current Medications Acetaminophen (Tylenol) 650 mg PO Q6H PRN PRN PRN Reason: Pain Score 1-10/Temp > 100.7 F Last Admin: 08/31/20 08:53 Dose: 650 mg Documented by: Bromfenac Sodium (Prolensa) 1 drop RIGHT EYE QHS [facility] Last Admin: 08/30/20 21:37 Dose: 1 drop Documented by: Dextrose (D50w Syringe) 0 gm IV X1 PRN; Protocol PRN Reason: Hypoglycemia Duloxetine HCl (Cymbalta) 60 mg PO DAILY [facility] Last Admin: 08/31/20 08:53 Dose: 60 mg Documented by: Enoxaparin Sodium (Lovenox) 40 mg SC DAILY [facility] Last Admin: 08/31/20 08:53 Dose: 40 mg Documented by: Glucagon () 1 mg IM .X1 PRN PRN Reason: Hypoglycemia Sodium Chloride () 1,000 mls @ 75 mls/hr IV .[id number] [facility] Last Admin: 08/31/20 01:28 Dose: 75 mls/hr Documented by: Ceftriaxone Sodium (Rocephin) 1 gm in 50 mls @ 100 mls/hr IV Q24@2200 [facility] Last Infusion: 08/30/20 22:15 Dose: Infused Documented by: Sodium Chloride () 250 mls @ 15 mls/hr IV .[id number] PRN PRN Reason: Saline Flush Sodium Chloride () 250 mls @ 15 mls/hr IV .[id number] PRN PRN Reason: Additional IVPB Infusion Insulin Human Lispro (Humalog Kwikpen (Bkc)) 0 unit SC ACHS [facility]; Protocol Last Admin: 08/31/20 06:55 Dose: 1 u Documented by: Lisinopril (Zestril) 20 mg PO DAILY [facility] Last Admin: 08/31/20 08:54 Dose: 20 mg Documented by: Loratadine (Claritin) 10 mg PO DAILY [facility] Last Admin: 08/31/20 08:53 Dose: 10 mg Documented by: Mirtazapine (Remeron) 7.5 mg PO QHS [facility] Last Admin: 08/30/20 21:36 Dose: 7.5 mg Documented by: Ofloxacin (Ofloxacin) 1 ml RIGHT EYE 4X/DAY [facility] Last Admin: 08/31/20 08:57 Dose: 1 ml Documented by: Ondansetron HCl (Zofran) 4 mg IV Q8H PRN PRN PRN Reason: NAUSEA/VOMITING Pantoprazole Sodium (Protonix) 40 mg PO DAILY [facility] Last Admin: 08/31/20 08:53 Dose: 40 mg Documented by: Polysaccharide Iron Complex (Ferrex 150) 150 mg PO BID [facility] Last Admin: 08/31/20 08:53 Dose: 150 mg Documented by: Senna (Senokot) 2 tablet PO DAILY [facility] Last Admin: 08/31/20 08:54 Dose: 2 tablet Documented by: Sodium Chloride () 10 - 40 ml IV UD PRN PRN Reason: SALINE FLUSH Tizanidine HCl (Zanaflex) 2 mg PO TID [facility] Last Admin: 08/31/20 06:54 Dose: 2 mg Documented by: Discharge Diet: 1800 Calorie Control Diet Discharge Activity: Return to Normal Activity Home Medications: Medications to take at Discharge Duloxetine HCl 60 mg PO DAILY 11/23/18 Tizanidine HCl 2 mg PO TID 11/23/18 traZODone [Desyrel] 100 mg PO QHS 11/23/18 Iron Polysaccharide Complex [Ferrex 150] 150 mg PO DAILY 12/23/19 Pantoprazole Sodium [Protonix] 40 mg PO DAILY 12/23/19 Potassium Chloride [K-Dur] 20 meq PO DAILY 04/11/20 Cetirizine HCl [Zyrtec] 10 mg PO DAILY 08/29/20 Guaifenesin [Mucinex] 600 mg PO BID 08/29/20 Phenazopyrid/Cran/Vit C/B.coag [Azo Urinary Tract Health Pack] 1 ea PO TID 08/29/20 Senna [Senokot] 2 tab PO DAILY 08/29/20 Bromfenac Sodium [Bromsite] 1 drp RIGHT EYE QHS 08/30/20 Mirtazapine [Remeron] 7.5 mg PO QHS 08/30/20 Ofloxacin 0.3% [Floxin 0.3% Otic] 1 drp RIGHT EYE 4X/DAY 08/30/20 Cephalexin [Keflex] 500 mg PO Q8 #21 cap 08/31/20 Lisinopril [Zestril] 20 mg PO DAILY #90 tab 08/31/20 Metformin HCl 500 mg PO BID #120 tab 08/31/20 Following Prescriptions Were Given to Patient: Cephalexin [Keflex] 500 mg PO Q8 #21 cap Transmission Status: Pending to [facility] Metformin HCl 500 mg PO BID #120 tab Transmission Status: Pending to [facility] Lisinopril [Zestril] 20 mg PO DAILY #90 tab Transmission Status: Received by [facility] Primary Care Physician: Erick Christensen III, MD [Primary Care Provider] - Please follow up with your Primary Care Physician in: IN 1 WEEK Disposition: Home Minutes spent on discharge:: 35 Patient Condition:: Stable Medical Necessity - Tobacco Use Smoking Status: Never smoker Meaningful Use Info Meaningful Use Diagnoses (Choose all that apply): None applicable Inpatient E&M: 44579 Disch Hosp
--- NOTE | 2020-08-31 10:46 | DCINST_ITS ---
- Discharge Diagnoses Current Active Problems: Current Active and Chronic Problems Acute on chronic hyponatremia (Acute) Hyperglycemia (Acute) Recurrent falls (Acute) Acute cystitis (Acute) Discharge Activity: Return to Normal Activity Allergies/Adverse Reactions: Allergies morphine Adverse Reaction (Verified 08/29/20 20:54) delirium Medications to take at Discharge Duloxetine HCl 60 mg PO DAILY 11/23/18 Tizanidine HCl 2 mg PO TID 11/23/18 traZODone [Desyrel] 100 mg PO QHS 11/23/18 Iron Polysaccharide Complex [Ferrex 150] 150 mg PO DAILY 12/23/19 Pantoprazole Sodium [Protonix] 40 mg PO DAILY 12/23/19 Potassium Chloride [K-Dur] 20 meq PO DAILY 04/11/20 Cetirizine HCl [Zyrtec] 10 mg PO DAILY 08/29/20 Guaifenesin [Mucinex] 600 mg PO BID 08/29/20 Phenazopyrid/Cran/Vit C/B.coag [Azo Urinary Tract Health Pack] 1 ea PO TID 08/29/20 Senna [Senokot] 2 tab PO DAILY 08/29/20 Bromfenac Sodium [Bromsite] 1 drp RIGHT EYE QHS 08/30/20 Mirtazapine [Remeron] 7.5 mg PO QHS 08/30/20 Ofloxacin 0.3% [Floxin 0.3% Otic] 1 drp RIGHT EYE 4X/DAY 08/30/20 Cephalexin [Keflex] 500 mg PO Q8 #21 cap 08/31/20 Lisinopril [Zestril] 20 mg PO DAILY #90 tab 08/31/20 Metformin HCl 500 mg PO BID #120 tab 08/31/20 The following prescriptions were given: Cephalexin [Keflex] 500 mg PO Q8 #21 cap Transmission Status: Pending to [facility] Metformin HCl 500 mg PO BID #120 tab Transmission Status: Pending to [facility] Lisinopril [Zestril] 20 mg PO DAILY #90 tab Transmission Status: Received by [facility] Primary Care Physician: Erick Christensen III, MD [Primary Care Provider] - Please follow up with your Primary Care Physician in: IN 1 WEEK Test Results: Test results from this visit will be discussed in further detail at your follow- up appointment, if applicable. Proposed Discharge Date: 08/31/20
--- NOTE | 2020-08-31 11:35 | CASEMGMT ---
RN JESICA Assessment Note Introduced role of CM to patient. Demographics, PCP verified. Patient is awake and alert, able to participate but will not go into detail re: her home environment. She states she will be able to go home, is refusing HHC or SNF. Nursing states she has refused to get OOB due to pain. JOSE MOONEY discussed with patient at length including recommendation for PT/OT on discharge. The patient states, I'll just take more medication. JOSE MOONEY called to daughter Greer who will be in today to discuss HHC with her mother. -When JOSE MOONEY let patient know [facility] could see her after dc, patient again refused. Sadaf @ [facility] updated to keep referral, but will need to check if patient is agreeable after daughter speaks with her. Diagnosis: acute encephalopathy PCP: Dr. Erick Ramon III Specialists: None Insurance: [facility] PPO Preferred Pharmacy: [facility] Prescription Benefit: yes LNOK: daughters Living Arrangements: Lives in one story home alone, 3 steps into the home. Patient states she is independent and is denying falling, however JOSE MOONEY did discuss that she is a fall risk and it was recommended she consider SNF on discharge for rehab. Patient still refused considering SNF, however will consider HHC. Tranportation: family drives DME: wheeled walker, raised toilet seat HHC: in past. Referral to [facility], however patient is refusing. Daughter to come in and speak with her. SNF: none Patient DC Goals: Home DC Plan: Home on discharge. Will need to see if patient is willing to have HHC on dc. Tommy SIMPSON RN ACM
[2020-08-31 11:46] LABS: Bedside Glucose 222 mg/dL (70-110)
--- NOTE | 2020-08-31 14:27 | PHA.DC.MC ---
Pharmacy Service has performed discharge medication reconciliation and counseling for this patient. The patient was counseled on the following discharge medications and changes in medications for homegoing were reviewed. 1. metformin 2. cephalexin The Reason for Use, instructions for use, and potential side effects were reviewed for all new medications. The patient's questions regarding all of their medications were answered. The patient was able to verbally demonstrate an understanding of their discharge medications. Spoke with daughter who manages medications, and she was in understanding of the new discharge medications. Home Medications Duloxetine HCl 60 mg PO DAILY 11/23/18 Tizanidine HCl 2 mg PO TID 11/23/18 traZODone [Desyrel] 100 mg PO QHS 11/23/18 Iron Polysaccharide Complex [Ferrex 150] 150 mg PO DAILY 12/23/19 Pantoprazole Sodium [Protonix] 40 mg PO DAILY 12/23/19 Potassium Chloride [K-Dur] 20 meq PO DAILY 04/11/20 Cetirizine HCl [Zyrtec] 10 mg PO DAILY 08/29/20 Guaifenesin [Mucinex] 600 mg PO BID 08/29/20 Phenazopyrid/Cran/Vit C/B.coag [Azo Urinary Tract Health Pack] 1 ea PO TID 08/29/20 Senna [Senokot] 2 tab PO DAILY 08/29/20 Bromfenac Sodium [Bromsite] 1 drp RIGHT EYE QHS 08/30/20 Mirtazapine [Remeron] 7.5 mg PO QHS 08/30/20 Ofloxacin 0.3% [Floxin 0.3% Otic] 1 drp RIGHT EYE 4X/DAY 08/30/20 Cephalexin [Keflex] 500 mg PO Q8 #21 cap 08/31/20 Lisinopril [Zestril] 20 mg PO DAILY #90 tab 08/31/20 Metformin HCl 500 mg PO BID #120 tab 08/31/20 The patient's discharge medication list was reviewed for discrepancies and discrepancies were resolved.
--- NOTE | 2020-08-31 16:47 | CASEMGMT ---
JOSE CM Note: Referral had been made to [facility], but prior to dc patient refused to have HHC. Daughter is aware and patient to dc today. [facility] will cancel referral. Tommy SIMPSON RN AC
--- NOTE | 2020-09-01 14:32 | CASEMGMT ---
JOSE CM DC PHONE CALL DC DATE: 08/31/2020 DC DISPOSITION: Home DC DIAGNOSIS: Falls, Hyperglycemia, Cystitis LACE/STRATA: 09/29 F/U APPTS MADE PRIOR TO DC: yes Attempted call to patient's phone. No answer, an no messaging with name identifier. Tommy WEBERN RN ACM
[2020-09-02 09:48] LABS: Vitamin B12 389 pg/mL (211-911); Vitamin D,25 Hydroxy 10.7 ng/mL
== END 2020-08-31 15:19 | disposition home or self-care (01) | DRG 690 ==
LOC: ED 22:53 → MS3 23:11
PROVIDERS: Hospitalist; Admitting Provider Hospitalist; Emergency Provider Emergency Medicine; PCP Family Medicine; Referring Provider Hospitalist; Visit Provider Internal Medicine
DX: N30.00 Acute cystitis without hematuria (principal); G93.49 Other encephalopathy; E87.1 Hypo-osmolality and hyponatremia; N17.9 Acute kidney failure, unspecified; I13.0 Hypertensive heart and chronic kidney disease with heart failure and stage 1 through stage 4 chronic kidney disease, or unspecified chronic kidney disease; B96.4 Proteus (mirabilis) (morganii) as the cause of diseases classified elsewhere; F41.8 Other specified anxiety disorders; E11.65 Type 2 diabetes mellitus with hyperglycemia; E11.22 Type 2 diabetes mellitus with diabetic chronic kidney disease; Z23 Encounter for immunization; M21.371 Foot drop, right foot; I50.9 Heart failure, unspecified; D50.9 Iron deficiency anemia, unspecified; M19.90 Unspecified osteoarthritis, unspecified site; S00.83XA Contusion of other part of head, initial encounter; X58.XXXA Exposure to other specified factors, initial encounter; R29.6 Repeated falls; G89.29 Other chronic pain; N18.30 Chronic kidney disease, stage 3 unspecified
CPT/HCPCS: 36415; 70450; 80048; 80053; 81001; 82306; 82533; 82607; 82962; 83036; 83605; 83930; 83935; 84300; 84443; 84550; 85025; 85027; 87077; 87086; 87088; 87186; 93005; 97162; 97166; 97802; 99285; G0008; J7030; P9612; 90686; A4216

== ENCOUNTER 2021-02-02 04:25 | Emergency (ER) | payer MEDICARE, SELFPAY ==
[2020-08-30 00:18] VITALS: BMI 25.5
[2021-02-02 04:25] VITALS: BP 101/74; PULSE 110; RESP 18; TEMP 37; O2SAT 97; BMI 27.6
--- NOTE | 2021-02-02 04:35 | RAD_ITS ---
STUDY: X-RAY - RIGHT HAND REASON FOR EXAM: Female, 80 years old. injury TECHNIQUE: 3 view(s) of the hand. COMPARISON: Right forearm February 02, 2021.. FINDINGS: Bones are osteopenic. Transverse mildly displaced fracture distal radial metaphysis with impaction. Longitudinal minimally displaced fracture medial aspect distal ulnar metaphysis extending to the ulnar styloid not appreciated on the prior study. Minimally displaced ulnar styloid avulsion fracture. Normal visualized carpal bones. Normal carpal articulations Normal carpometacarpal articulation of the thumb. Normal second through fifth carpometacarpal joints. Normal metacarpi. Normal metacarpophalangeal joint of the thumb. Normal interphalangeal joint of the thumb. Normal proximal and distal phalanges of the thumb. Normal metacarpophalangeal joints of the second through fifth fingers. Normal proximal and distal interphalangeal joints of the second through fifth fingers. Normal phalanges of the second through fifth fingers. Mild soft tissue swelling dorsum of hand. Midshaft proximal phalanx ring finger not visualized due to a metallic ring. RAD/Hand Min 3 Views IMPRESSION: Fracture distal radial metaphysis with impaction. Fracture medial aspect of the distal ulna in addition to ulnar styloid avulsion fracture. Electronically Signed: Gutierrez Mendoza MD at 5:21 EST , Service support ,
--- NOTE | 2021-02-02 04:35 | RAD_ITS ---
STUDY: X-RAY - RIGHT RADIUS AND ULNA REASON FOR EXAM: Female, 80 years old. Trauma. TECHNIQUE: 2 view(s) of the forearm. COMPARISON: None. FINDINGS: Mild soft tissue swelling. The bones are osteopenic. Transverse mildly displaced fracture distal radial metaphysis with impaction. Minimally displaced ulnar styloid avulsion fracture. RAD/Forearm 2 Views IMPRESSION: Mildly displaced fracture distal radial metaphysis with impaction. Ulnar styloid avulsion fracture. Mild soft tissue swelling. Electronically Signed: Gutierrez Mendoza MD at 5:15 EST , Service support ,
--- NOTE | 2021-02-02 04:36 | ED.VIS.GEN ---
History of Present Illness Chief Complaint: Fall Informant: Patient Onset: Today Current Severity: Mild Maximum Severity: Mild Narrative: Patient presents after fall at home. She states she got up in the middle the night to go the bathroom. She was walking through the doorway into the bathroom she lost her balance and fell backwards landing on her right wrist. She complaining of pain from the right hand to the mid forearm. She is right-hand dominant. She denies neck or back pain. She did not strike her head or lose consciousness. She is not on anticoagulants. - Past Medical History (1) Anxiety and depression Status: Chronic (2) CKD (chronic kidney disease), stage III Status: Chronic (3) Congestive heart failure Status: Chronic (4) Hypertension Status: Chronic Past Medical History - Allergies and Home Meds Allergies/Adverse Reactions: Allergies morphine Adverse Reaction (Verified 02/02/21 04:30) delirium Primary Care Physician: Erick Christensen III, MD [Primary Care Provider] - Prior records reviewed: Yes Surgical History: total hip arthroplasty - The right side right., tonsillectomy, - - History of extensive trauma with right hip pin and follow-up right total hip replacement. Lives: Alone Smoking Status: Never smoker - Family History Maternal Family History: Family History (Last Reviewed 08/30/20 @ 07:[address] Marvin Zurita MD) Father Brain tumor Mother Gallbladder disease Family History: Reports: Hypertension, - - Thyroid disease. Paternal Family History: Family History (Last Reviewed 08/30/20 @ 07:[address] Marvin Zurita MD) Father Brain tumor Mother Gallbladder disease Family History: Reports: Cancer - Father with a history of brain cancer. Review of Systems General: Denies: Chills, Fever Eyes: Denies: Visual changes - bilaterally ENT: Denies: Bilateral ear pain Cardiovascular: Denies: Chest pain Respiratory: Denies: Dyspnea, Cough Gastrointestinal: Denies: Abdominal pain, Nausea, Vomiting, Diarrhea Genitourinary: Denies: Dysuria Musculoskeletal: Reports: Swelling, Extremity Pain Skin: Denies: Rash Neurological: Denies: Headache Hematologic: Denies: Easy bruising, Easy bleeding Allergy: Denies: Uticaria Physical Exam Vital Signs/Narrative: Vital Signs Temp Pulse Resp BP Pulse Ox 02/02/21 04:25 98.6 F 110 H 18 101/74 97 Inital Vital Signs reviewed: Yes General: Well nourished, Well developed Head: Normocephalic ENT: Moist mucous membranes Neck: Supple Cardiovascular: Regular rate, Regular rhythm Respiratory: No distress, CTA bilaterally Abdomen: Soft, Nontender Extremities: - - Mild tenderness and edema from the metacarpal region through the distal third of the forearm. No obvious deformity noted. Patient able to wiggle fingers and has normal sensation and cap refill. No tenderness at the elbow or shoulder. Skin: - - Early ecchymosis to the right hand Neurological: Alert, Oriented x3 Psychological: Normal affect Diagnostic/Tx/Re-eval Impressions Forearm X-Ray 02/02/21 04:35 IMPRESSION: Mildly displaced fracture distal radial metaphysis with impaction. Ulnar styloid avulsion fracture. Mild soft tissue swelling. Electronically Signed: Gutierrez Mendoza MD at 5:15 EST , Service support , Hand X-Ray 02/02/21 04:35 IMPRESSION: Fracture distal radial metaphysis with impaction. Fracture medial aspect of the distal ulna in addition to ulnar styloid avulsion fracture. Electronically Signed: Gutierrez Mendoza MD at 5:21 EST , Service support , 02/02/21 04:35 Forearm 2 Views [RAD] Stat Hand Min 3 Views [RAD] Stat - Medical Decision Making Patient was given a tab of [place] for pain. Right forearm and hand x-rays are obtained. Per my interpretation there is an acute fracture across the distal radius and ulnar styloid. I suspect this is through an old fracture site as patient has broken her wrist previously. I do not have old images to compare to. Radiologist read is interpreted. Images are reviewed with patient and daughter at bedside. AP Ortho-Glass splint is applied by myself. Following splint application patient has good cap refill distally and can wiggle fingers. She will be referred to Dr. Easley, on-call for orthopedics. Procedures - Upper Extremity Splints Upper Extremity Splint: Orthoglass, - - AP splint Splint Fabrication: Fabricated Location: Right ED Disposition - Plan for ED Patient: Disposition: Home or Assisted Living Diagnosis: Right wrist fracture Instructions: ED Fracture, Wrist, General Prescriptions: Hydrocodone Bitart/Apap 5-325 [[place] 5MG-325MG] 1 tab PO Q6H PRN PRN 3 Days #10 tab PRN Reason: Pain Transmission Status: Sent to [facility] #30 Referrals: Antoni Easley MD [STAFF PHYSICIAN] - 5-7 Days
[2021-02-02] MEDS: HYDROcodone Bitartrate/Apap 5/325 Tablet PO (04:38)
[2021-02-02 05:58] VITALS: BP 138/89; PULSE 93; RESP 18; O2SAT 98
== END 2021-02-02 05:59 | disposition home or self-care (01) ==
PROVIDERS: Emergency Provider Emergency Medicine; PCP Family Medicine
DX: S62.101A Fracture of unspecified carpal bone, right wrist, initial encounter for closed fracture (principal); W19.XXXA Unspecified fall, initial encounter
CPT/HCPCS: 29125; 73090; 73130; 99285

== ENCOUNTER 2021-04-06 11:22 | Inpatient (IN) | payer MEDICARE, SELFPAY ==
[2021-04-06] VITALS (32 sets, daily range): BP systolic 110–151; BP diastolic 47–100; PULSE 94–116; RESP 15–20; TEMP 36.2–36.8; O2SAT 92–100; BMI 30.5; BMI 25.4
--- NOTE | 2021-04-06 11:24 | CT_ITS ---
STUDY: CT HEAD STROKE PROTOCOL W/O CONTRAST INJECTION REASON FOR EXAM: Female, 80 years old. Neuro deficit, acute, stroke suspected RADIATION DOSAGE (If Supplied By Facility): CTDIvol = ( 44.99 ) mGy, DLP = ( 745.49 ) mGycm TECHNIQUE: Transaxial CT imaging of the brain was performed without administration of intravenous contrast material. Individualized dose optimization techniques were used for this CT. COMPARISON: Comparison is made with prior study dated 08/29/2020. FINDINGS: Normal soft tissue structures. Normal calvarium. There is moderate cerebral atrophy with widening of the extra-axial spaces and ventricular dilatation. There are areas of decreased attenuation within the white matter tracts of the supratentorial brain, consistent with microvascular disease changes. Normal basal ganglia and thalami. Normal brainstem. There is mild cerebellar atrophy. There is no intracranial hemorrhage. There are no findings of an acute ischemic infarction. Atherosclerotic calcification of the cavernous portions of the internal carotid arteries bilaterally. Normal visualized paranasal sinuses. CT/STROKE Brain/Head without Cont IMPRESSION: Chronic involutional changes of the brain. N.B. : The above information has been verbally conveyed by Avery Pabon MD to Srini Rodriguez on 04/06/2021 11:41:00 (ET). Electronically Signed: Avery Pabon MD at 11:42 EDT , Service support ,
--- NOTE | 2021-04-06 11:24 | EKG12_ITS ---
Test Reason : STROKE TEAM Blood Pressure : / mmHG Vent. Rate : 110 BPM Atrial Rate : 110 BPM P-R Int : 132 ms QRS Dur : 102 ms QT Int : 362 ms P-R-T Axes : 030 -22 110 degrees QTc Int : 489 ms Sinus tachycardia Possible Left atrial enlargement Left ventricular hypertrophy with repolarization abnormality Abnormal ECG Confirmed by YEMI MEADE, JEAN CARLOS ([id number]), marketing editor REYNA WHITMORE ([id number]) on 04/08/2021 1:55:22 PM Referred By: LINDA Confirmed By:JEAN CARLOS BRAGG MD
--- NOTE | 2021-04-06 11:24 | RAD_ITS ---
STUDY: X-RAY CHEST REASON FOR EXAM: Female, 80 years old. Neuro deficit, acute, stroke suspected TECHNIQUE: Single AP portable view of the chest. COMPARISON: Comparison is made with prior study dated 04/15/2020. FINDINGS: EKG electrodes are seen. Stable elevation of the right hemidiaphragm. There is no demonstrated pleural abnormality. Normal size heart. Normal mediastinum and patricia. Normal visualized pulmonary arteries. There is atherosclerotic calcification of the aortic arch with tortuosity. There are diffuse degenerative changes of the visualized thoracic spine. Mild dextroscoliosis. 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 Large hiatal hernia. RAD/Chest 1 View IMPRESSION: Large hiatal hernia. No acute abnormality is seen. Electronically Signed: Avery Pabon MD at 12:17 EDT , Service support ,
--- NOTE | 2021-04-06 11:25 | CT_ITS ---
STUDY: CTA HEAD AND NECK WITH CONTRAST REASON FOR EXAM: Female, 80 years old. Stroke RADIATION DOSAGE (If Supplied By Facility): CTDIvol = ( 17.53 ) mGy, DLP = ( 689.13 ) mGycm TECHNIQUE: CT angiography was performed with a multi-detector CT scanner. Data acquisition was obtained from the skull base through the vertex following intravenous administration of IV 100mL Isovue-370. MIP images were reconstructed from the axial data set. Post-processing of the angiographic images was performed, with multiplanar reformation and 3D reconstruction. Individualized dose optimization techniques were used for this CT. COMPARISON: No relevant priors. FINDINGS: Normal bilateral petrous carotid arteries. Normal right cavernous carotid artery with a normal supraclinoid bifurcation. Normal left cavernous carotid artery with a normal supraclinoid bifurcation. Normal right A1 segments of the anterior cerebral artery. Normal left A1 segments of the anterior cerebral artery. Normal intact anterior communicating artery (ACOM). Normal bilateral A2 segments of the anterior cerebral arteries. Normal right M1 and M2 segments of the middle cerebral arteries, with a normal M1 bifurcation. Normal left M1 and M2 segments of the middle cerebral arteries, with a normal M1 bifurcation. Normal right posterior communicating artery (PCOM). Normal left posterior communicating artery (PCOM). Normal bilateral vertebral arteries. Normal basilar artery with a normal basilar bifurcation. The visualized bilateral superior cerebellar (SCA) arteries are normal. Normal bilateral P1, P2 and visualized P3 segments of the posterior cerebral arteries. There is no demonstrated aneurysm of the [place]. There is no demonstrated abnormality of the visualized brain. AORTIC ARCH: There is mild degree of atherosclerotic calcific plaque formation of the aortic arch and great vessels arising from the aortic arch, without a hemodynamically significant stenosis. There is a normal origin of the brachiocephalic, left common carotid, and left subclavian arteries. RIGHT CAROTID ARTERIES: Normal right common carotid artery (CCA). Normal right common carotid bulb. There is mild atherosclerotic plaque formation of the origin of the right internal carotid artery with less than 50% cross sectional diameter stenosis. Normal visualized cervical portion of the right internal carotid artery. Normal origin of the right external carotid artery (ECA). LEFT CAROTID ARTERIES: Normal left common carotid artery (CCA). Normal left common carotid bulb. There is mild atherosclerotic plaque formation of the origin of the left internal carotid artery with less than 50% cross sectional diameter stenosis. Normal visualized cervical portion of the left internal carotid artery. Normal origin of the left external carotid artery (ECA). VERTEBRAL ARTERIES: Normal bilateral vertebral arteries. CT/STROKE CTA Head AND Neck W/Con IMPRESSION: Atherosclerotic plaques at the origin of both the right and left internal carotid arteries causing less than 50% stenosis. N.B. : The above information has been verbally conveyed by Avery Pabon MD to Srini Rodriguez on 04/06/2021 11:48:58 (ET). Electronically Signed: Avery Pabon MD at 11:50 EDT , Service support ,
--- NOTE | 2021-04-06 11:32 | NURSING ---
FACESHEET FAXED TO [facility]
[2021-04-06 11:39] LABS: Absolute Lymphocyte Count 1.21 X10^3/uL (0.83-4.51); Absolute Neutrophil Count 21.4 X10^3/uL (2.0-7.7); Basophil# 0.07 X10^3/uL; Basophil% 0.3 % (0-1); Differential Indicated SCAN CRITERIA MET; Eosinophil# 0.04 X10^3/uL; Eosinophils% 0.2 % (0-5); Hematocrit 26.2 % (37-47); Hemoglobin 7.5 g/dL (12.0-15.0); Lymphocyte # 1.21 X10^3/ul (0.83-4.51); Mean Corp Hgb Conc 28.6 g/dL (32-36); Mean Corpuscular Hgb 20.9 pg (27.0-32.0); Mean Platelet Vol. 10.6 fl (6.2-12.0); Monocyte# 1.28 X10^3/uL; Monocyte% 5.3 % (0-10); NRBC Flagged by Analyzer 0.1 % (0-5); Neutrophil # 21.39 X10^3/uL (2.7-7.7); Neutrophil % 88.1 % (47-70); POSITIVE DIFFERENTIAL YES; Platelet Count 517 K/mm3 (150-450); RBC Distribution Width CV 16.9 % (11.6-14.6); Red Blood Count 3.59 M/mm3 (4.2-5.4); White Blood Count 24.3 K/mm3 (4.4-11.0)
[2021-04-06] MEDS: 0.9% Normal Saline 1,000 ML 100 ML IV (11:46)
--- NOTE | 2021-04-06 11:49 | CM.ED ---
SW Note Referral Source: Patient Find Referral Reason: Stroke alert SW responded to a stroke alert for patient. SW spoke to patient's daughter, who is an ED RN at [facility]. Patient's daughter was able to recall the time and what symptoms patient displayed to ED staff. Emotional support provided. Patient's daughter said that patient's daughter is already on the way to the hospital. No other needs identified at this time. ANTHONY will continue to follow. Katiuska LOPEZ
[2021-04-06] MEDS: 0.9% Normal Saline 1,000 ML 999 ML IV (11:50)
[2021-04-06 11:51] LABS: International Normalized Ratio 1.2; Prothrombin Time (Protime)PT. 14.4 SECONDS (11.7-14.9)
[2021-04-06 11:52] LABS: Partial Thromboplast Time 22.7 Seconds (24.1-36.2)
[2021-04-06 11:54] LABS: Hypochromasia 1+
[2021-04-06 11:58] LABS: Anion Gap 18 (5-15); BUN 50 mg/dL (7-18); BUN/Creat Ratio 19.4 RATIO (10-20); Calcium,Total 10.9 mg/dL (8.5-10.1); Chloride 88 mmol/L (98-107); Creatinine, Serum 2.58 mg/dL (0.55-1.02); EST Glomerular Filtration Rate 19 mL/min (>60); Est Glom Filt Rate - Afr Amer 23 mL/min (>60); Estimated Creatinine Clearance 14.87 ml/min; Glucose 551 mg/dL (74-106); Potassium 4.3 mmol/L (3.5-5.1); Sodium Level 125 mmol/L (136-145)
[2021-04-06 12:36] LABS: AST(SGOT) 18 U/L (15-37); Alanine Aminotransfer ALT/SGPT 15 U/L (13-56); Albumin, Serum 3.5 g/dL (3.2-5.0); Alkaline Phosphatase 101 U/L (45-117); Bilirubin, Direct 0.13 mg/dL (0.00-0.30); Globulin 4.1 g/dL (2.2-4.2); Protein, Total 7.6 g/dL (6.4-8.2)
[2021-04-06 12:37] LABS: CPK Total, Creatine Kinase 102 U/L (26-192)
--- NOTE | 2021-04-06 12:43 | CM.ED ---
SW Note Reason for SW Referral: Stroke Alert SW Referral Source: Stroke Alert SW met with patient's daughters who were both in the room. Pt's daughters reported no needs or concerns at this time. SW will continue to follow as needed. Katiuska Yung
--- NOTE | 2021-04-06 12:50 | ED.VIS.STROK ---
HPI History of Present Illness Chief Complaint: Neuro S/Sx Informant: patient, family and EMS Narrative Narrative: This is a 80-year-old female who family states sustained a fall around 830 this morning. They evaluated her and she seemed fine other than a forehead abrasion. At approximately 1045 patient was using the bathroom and her daughter heard her make a sound and she went in there and found her right side flaccid with facial droop and dysarthria. EMS was called and she was transported here. There is no report of being on anticoagulants. Family states that she does have a history of anemia and is on iron. Family/Patient denies any known bleeding or TPA contraindications. [facility] Medical History (Updated 04/06/21 @ 13:[address] Shailesh Coles MD) Anxiety Congestive heart failure (CHF) Depression Diabetes Hypertension Kidney disease Home Medications duloxetine 60 mg PO DAILY 11/23/18 [History Last Taken 04/06/21] trazodone 100 mg PO QHS 11/23/18 [History Last Taken 04/06/21] pantoprazole 40 mg PO DAILY 12/23/19 [History Last Taken 04/06/21] polysaccharide iron complex 150 mg PO DAILY 12/23/19 [History Last Taken 04/06/21] potassium chloride 20 meq PO DAILY 04/11/20 [History Last Taken 04/06/21] cetirizine 10 mg PO DAILY 08/29/20 [History Last Taken 04/06/21] guaifenesin 600 mg PO BID 08/29/20 [History Last Taken 04/06/21] mirtazapine 15 mg PO QHS 08/30/20 [History Last Taken 04/06/21] lisinopril 20 mg PO DAILY #90 tab 08/31/20 [Rx Last Taken 04/06/21] metformin 500 mg PO BID #120 tab 08/31/20 [Rx Last Taken 04/06/21] celecoxib 100 mg PO DAILY 04/06/21 [History Last Taken 04/06/21] lorazepam 0.5 mg PO BID 04/06/21 [History Last Taken 04/06/21] lorazepam 1 mg PO QHS 04/06/21 [History Last Taken 04/06/21] Allergy/AdvReac Type Severity Reaction Status Date / Time morphine AdvReac delirium Verified 04/06/21 12:07 Family History Father Brain tumor Mother Gallbladder disease Surgical History (Updated 04/06/21 @ 13:[address] Shailesh Coles MD) History of hip replacement no surgical history (Noncontributory) Social History (Updated 04/06/21 @ 12:[address] Srini Rodriguez DO) household members: none Smoking Status: Never smoker substance use type: does not use ROS ROS ED Constitutional Constitutional ED: Reports other Details: Frequent falls ; Denies chills or weight loss Eyes Eyes: Denies change in vision or diplopia ENT ENT ED: Denies ear pain, rhinorrhea or sore throat Cardiovascular Cardiovascular: Denies chest pain, orthopnea, palpitations or racing heartbeat Respiratory/Chest Respiratory/Chest: Denies cough, dyspnea or orthopnea Gastrointestinal Gastrointestinal: Denies abdominal pain, diarrhea, nausea or vomiting Genitourinary Genitourinary ED: Denies dysuria, hematuria or urinary frequency Musculoskeletal Musculoskeletal: Denies arthralgias or myalgias Integumentary Denies abscess or rash Neurologic Neurologic: Reports weakness and other Details: Dysarthria ; Denies headache(s) Psychiatric Psychiatric: Denies anxiety, depression, suicidal ideation or suicidal thoughts Endocrine Endocrinology: Denies polydipsia, polyphagia or polyuria Allergic/Immunologic Allergic/Immunologic ED: Denies mouth swelling, tongue swelling or urticaria EXAM Physical Exam Const Vital Signs: 04/06/21 11:23 04/06/21 11:35 04/06/21 11:42 Temperature 97.5 F L 97.6 F L Temperature Source Temporal Axillary Pulse Rate 116 H 109 H Respiratory Rate 18 17 Blood Pressure 115/66 115/66 Blood Pressure Mean 82 82 Blood Pressure Source Monitor Blood Pressure Position Semi-Fowlers Blood Pressure Location Left Arm Pulse Ox 97 93 Oxygen Delivery Method Room Air Room Air Oxygen Flow Rate (L/min) 04/06/21 11:57 04/06/21 12:12 04/06/21 12:27 Temperature 97.2 F L 97.5 F L 97.1 F L Temperature Source Temporal Temporal Temporal Pulse Rate 107 H 105 H 98 Respiratory Rate 16 20 H 16 Blood Pressure 133/76 H 122/71 H 133/78 H Blood Pressure Mean 95 88 96 Blood Pressure Source Monitor Monitor Monitor Blood Pressure Position Semi-Fowlers Semi-Fowlers Semi-Fowlers Blood Pressure Location Left Arm Left Arm Left Arm Pulse Ox 100 100 100 Oxygen Delivery Method Nasal Cannula Nasal Cannula Nasal Cannula Oxygen Flow Rate (L/min) 4 4 4 04/06/21 12:42 04/06/21 12:56 04/06/21 12:57 Temperature 97.6 F L 97.3 F L Temperature Source Temporal Temporal Pulse Rate 97 100 Respiratory Rate 17 19 H Blood Pressure 133/77 H 126/73 H Blood Pressure Mean 95 90 Blood Pressure Source Monitor Monitor Blood Pressure Position Semi-Fowlers Semi-Fowlers Blood Pressure Location Left Arm Left Arm Pulse Ox 100 100 Oxygen Delivery Method Nasal Cannula Nasal Cannula Nasal Cannula Oxygen Flow Rate (L/min) 4 4 4 04/06/21 13:12 04/06/21 13:27 Temperature 97.3 F L 97.4 F L Temperature Source Temporal Temporal Pulse Rate 104 H 102 H Respiratory Rate 18 17 Blood Pressure 128/91 H 137/100 H Blood Pressure Mean 103 112 Blood Pressure Source Monitor Monitor Blood Pressure Position Semi-Fowlers Semi-Fowlers Blood Pressure Location Left Arm Left Arm Pulse Ox 100 100 Oxygen Delivery Method Nasal Cannula Nasal Cannula Oxygen Flow Rate (L/min) 4 4 Positive well nourished and well developed General Appearance ED: well developed HEENT Reports normocephalic, head/scalp atraumatic and moist mucous membranes Eyes PERRL and EOMs intact bilaterally Neck no lymphadenopathy, supple and no JVD Resp normal respiratory effort and clear to auscultation bilaterally Cardio regular rate, regular rhythm and no murmurs GI normal to inspection, nondistended, normoactive bowel sounds and non-tender Palpation: soft Back/Spine no CVA tenderness and normal ROM Extremity normal to inspection General Extremety ED: Negative for edema General Extremity: Negative for edema Neuro oriented x3 Sensorium / Orientation: alert Psych mental status grossly normal Mood & Affect: Negative for depressed or tearful Skin no rashes or lesions noted and no wounds STROKE Vital Signs/Narrative: Vital Signs Temp Pulse Resp BP Pulse Ox 04/06/21 13:27 97.4 F L 102 H 17 137/100 H 100 04/06/21 13:12 97.3 F L 104 H 18 128/91 H 100 04/06/21 12:57 97.3 F L 100 19 H 126/73 H 100 04/06/21 12:42 97.6 F L 97 17 133/77 H 100 04/06/21 12:27 97.1 F L 98 16 133/78 H 100 04/06/21 12:12 97.5 F L 105 H 20 H 122/71 H 100 04/06/21 11:57 97.2 F L 107 H 16 133/76 H 100 04/06/21 11:42 97.6 F L 109 H 17 115/66 93 04/06/21 11:35 116 H 18 115/66 97 04/06/21 11:23 97.5 F L NIHSS Initial: 1a Level of Consciousness: 0 1b LOC Questions (Score 2 if aphasic/stupor): 0 1c LOC Commands (Only score 1st attempt): 0 2 Best Gaze (If aphasic, use reflexive mvmts.): 1 3 Visual: 1 4 Facial Palsy: 3 5 Motor Arm Right (UN = amputation/fusion): 4 5 Motor Arm Left: 0 6 Motor Leg Right: 4 6 Motor Leg Left: 0 7 Limb ataxia (Only + if out of proportion): 0 8 Sensory (Aphasia/stupor=0 or 1, coma=2): 2 9 Best Language: 1 10 Dysarthria (mute, coma=2, intubated=UN): 1 11 Extinction and Inattention (only scored if +): 2 Total Score: 19 MDM MDM MDM Narrative Medical decision making narrative: I personally evaluated the patient in the ambulance bay took her directly to CT where noncontrasted head CT was performed does not show any hemorrhage. She was brought back to the resuscitation room where she was evaluated by [facility] neurologist. Recommendation was for TPA. Patient's blood sugar noted to be elevated and insulin was ordered this is not an absolute contraindication. Patient's labs show a new creatinine of 2.58 and a glucose of 551. She is a diabetic and is on Metformin therapy family states that she has been given this diagnosis about a year ago but her diet is mostly carbs. Patient received IV fluids. Her white count is substantially elevated at 24. The patient's hemoglobin level is about 7.5. Her platelet count is 517. Family notes that she has been trending down in her hemoglobin over the past several months and she has been taking iron. Family now recalls that she fell around 3:00 in the morning but does not believe that she laid on the ground or injured herself further. CPK level is 102. I have reassessed the patient several times. She has no pain over the extremities. The abdomen is soft and nontender. I do not see outward signs of back trauma. Her neurologic exam is improving. Patient does not seem to have any infectious symptoms at the current time.She does have a white count of 24 and elevated lactic acid and evidence of YRIS. She has not had a desire to give us a urine specimen yet. Her lab work and may be result of the multiple falls today and dehydration. We are unable to catheter at this time because of the TPA. Lab Data Attestation: I reviewed the patient's lab results. Labs: Laboratory Results - last 24 hr 04/06/21 04/06/21 04/06/21 11:15 11:15 11:15 WBC 24.3 H RBC 3.59 L Hgb 7.5 L Hct 26.2 L MCV 73.0 L MCH 20.9 L MCHC 28.6 L RDW Std Deviation 44.0 H RDW Coeff of Alvarado 16.9 H Plt Count 517 H MPV 10.6 Immature Gran % (Auto) 1.100 H Neut % (Auto) 88.1 H Lymph % (Auto) 5.0 L [place] % (Auto) 5.3 Eos % (Auto) 0.2 Baso % (Auto) 0.3 Absolute Neuts (auto) 21.4 H Absolute Lymphs (auto) 1.21 Nucleated RBC % 0.1 Hypochromasia 1+ PT 14.4 INR 1.2 APTT 22.7 L Sodium 125 L Potassium 4.3 Chloride 88 L Carbon Dioxide 19.0 L Anion Gap 18 H BUN 50 H Creatinine 2.58 H Estim Creat Clear Calc 14.87 Est GFR (MDRD) Af Amer 23 L Est GFR (MDRD) Non-Af 19 L BUN/Creatinine Ratio 19.4 Glucose 551 H* Lactic Acid Calcium 10.9 H Total Bilirubin Direct Bilirubin AST ALT Alkaline Phosphatase Total Creatine Kinase Troponin I 0.023 Total Protein Albumin Globulin 04/06/21 04/06/21 04/06/21 11:15 11:15 13:15 WBC RBC Hgb Hct MCV MCH MCHC RDW Std Deviation RDW Coeff of Alvarado Plt Count MPV Immature Gran % (Auto) Neut % (Auto) Lymph % (Auto) [place] % (Auto) Eos % (Auto) Baso % (Auto) Absolute Neuts (auto) Absolute Lymphs (auto) Nucleated RBC % Hypochromasia PT INR APTT Sodium Potassium Chloride Carbon Dioxide Anion Gap BUN Creatinine Estim Creat Clear Calc Est GFR (MDRD) Af Amer Est GFR (MDRD) Non-Af BUN/Creatinine Ratio Glucose Lactic Acid 3.5 H* Calcium Total Bilirubin 0.90 Direct Bilirubin 0.13 AST 18 ALT 15 Alkaline Phosphatase 101 Total Creatine Kinase 102 Troponin I Total Protein 7.6 Albumin 3.5 Globulin 4.1 Radiography Diagnostic Testing: Radiology Impression Brain CT 04/06/21 11:24 IMPRESSION: Chronic involutional changes of the brain. N.B. : The above information has been verbally conveyed by Avery Pabon MD to Srini Rodriguez on 04/06/2021 11:41:00 (ET). Electronically Signed: Avery Pabon MD at 11:42 EDT , Service support , ADDENDUM: 04/06/21 1149 IMPRESSION: Chronic involutional changes of the brain. N.B. : The above information has been verbally conveyed by Avery Pabon MD to Srini Rodriguez on 04/06/2021 11:41:00 (ET). Electronically Signed: Avery Pabon MD at 11:42 EDT , Service support , Chest X-Ray 04/06/21 11:24 IMPRESSION: Large hiatal hernia. No acute abnormality is seen. Electronically Signed: Avery Pabon MD at 12:17 EDT , Service support , Head/Neck CTA 04/06/21 11:25 IMPRESSION: Atherosclerotic plaques at the origin of both the right and left internal carotid arteries causing less than 50% stenosis. N.B. : The above information has been verbally conveyed by Avery Pabon MD to Srini Rodriguez on 04/06/2021 11:48:58 (ET). Electronically Signed: Avery Pabon MD at 11:50 EDT , Service support , ADDENDUM: 04/06/21 1157 IMPRESSION: Atherosclerotic plaques at the origin of both the right and left internal carotid arteries causing less than 50% stenosis. N.B. : The above information has been verbally conveyed by Avery Pabon MD to Srini Rodirguez on 04/06/2021 11:48:58 (ET). Electronically Signed: Avery Pabon MD at 11:50 EDT , Service support , EKG Initial EKG: Attestation: I personally reviewed and interpreted this EKG as follows: Comments: EKGShows a sinus tachycardia. Stroke Documentation Questions Stroke Team Activated: Yes Reviewed Inclusion/Exclusion criteria: Yes Was Patient considered for Endovascular Intervention?: No IV Alteplase (t-PA) Administered: Yes No contraindications for IV Alteplase (t-PA) administration.: Yes Alteplase (t-PA) risks, benefits, alternative discussed: Yes Not given: Patient refusal: No Critical Care Time Critical Care Time: Yes Critical care time (excluding procedures): 30-74 minutes (40 minutes), Discussing w/Patient &/or Family/Ear Flap Binder, Discussing w/Consultants, Arranging Admission or Transfer and Performing Direct Patient Care at Bedside Discharge Plan Dx/Rx/DC Orders Clinical Impression: Acute ischemic left MCA stroke, Leukocytosis, Anemia, Acute kidney injury, Hyperglycemia due to type 2 diabetes mellitus Disposition Disposition: [facility]
[2021-04-06] MEDS: 0.9% Normal Saline 1,000 ML 1000 ML IV (13:15)
--- NOTE | 2021-04-06 13:20 | NURSING ---
ICU 3 [facility] ACUTE STROKE
--- NOTE | 2021-04-06 13:41 | HP.PCM.HOS_ITS ---
[facility] - [facility] Date of Admission: 04/06/21 Chief Complaint: Fall, right facial droop, slurred speech. [facility] Narrative NIA HAMILTON, is a 80 F with past medical history as mentioned above presented to the emergency room because of fall, slurred speech and right facial droop. At this time, patient is alert and oriented x3 but her daughters were at the bed side and they provided information. According to her daughter, patient had a fall this morning around 8:30 AM. Her daughter came to her house, evaluated her and she had small forehead abrasion. Daughter mentioned that around 1045, patient went to the bathroom, stayed around 8 minutes and she heard a sound and she went into the bathroom to check with her mom. She stated that her mom was lethargic, having garbled speech with right facial droop and she stated that she could not move her right side. Currently, patient denied any pain. She is alert and oriented x3. She denied chest pain or shortness of breath. She denied headache. In the emergency department, patient was afebrile, blood pressure was stable, heart rate stable, pulse ox was 100% on 4 L of oxygen. Upon arrival to ED, NIH stroke scale was 19. SOC teleneurology consulted and recommended TPA. tPA was given in the ED. Her routine blood work was remarkable for significant leukocytosis, hemoglobin of 7.5 g/dL, sodium was 125, BUN is 50, creatinine is 2.58. Blood glucose was 551. LFT was unremarkable. EKG revealed sinus tachycardia, no acute changes. Troponin was negative. CT scan brain showed no infarct or hemorrhage. Chest x-ray showed no acute infiltrate or consolidation. Head and neck CTA revealed atherosclerotic plaques at the origin of both right and left internal carotids causing less than 50% stenosis. Patient is being admitted for acute stroke status post TPA, acute on chronic anemia, YRIS on CKD, leukocytosis without evidence of infection and hyperglycemia. [facility] Medical History (Updated 04/06/21 @ 14:[address] Shailesh Coles MD) Anxiety Congestive heart failure (CHF) Depression Diabetes Hypertension Kidney disease Home Medications duloxetine 60 mg PO DAILY 11/23/18 [History Last Taken 04/06/21] trazodone 100 mg PO QHS 11/23/18 [History Last Taken 04/06/21] pantoprazole 40 mg PO DAILY 12/23/19 [History Last Taken 04/06/21] polysaccharide iron complex 150 mg PO DAILY 12/23/19 [History Last Taken 04/06/21] potassium chloride 20 meq PO DAILY 04/11/20 [History Last Taken 04/06/21] cetirizine 10 mg PO DAILY 08/29/20 [History Last Taken 04/06/21] guaifenesin 600 mg PO BID 08/29/20 [History Last Taken 04/06/21] mirtazapine 15 mg PO QHS 08/30/20 [History Last Taken 04/06/21] lisinopril 20 mg PO DAILY #90 tab 08/31/20 [Rx Last Taken 04/06/21] metformin 500 mg PO BID #120 tab 08/31/20 [Rx Last Taken 04/06/21] celecoxib 100 mg PO DAILY 04/06/21 [History Last Taken 04/06/21] lorazepam 0.5 mg PO BID 04/06/21 [History Last Taken 04/06/21] lorazepam 1 mg PO QHS 04/06/21 [History Last Taken 04/06/21] Allergy/AdvReac Type Severity Reaction Status Date / Time morphine AdvReac delirium Verified 04/06/21 12:07 Family History Father Brain tumor Mother Gallbladder disease Surgical History (Updated 04/06/21 @ 13:[address] Shailesh Coles MD) History of hip replacement Social History (Updated 04/06/21 @ 12:[address] Srini Rodriguez DO) household members: none Smoking Status: Never smoker substance use type: does not use ROS Constitutional Constitutional: Denies anorexia, chills, fatigue, fever(s) or malaise Eyes Eyes: Denies blurry vision, change in eye color, change in vision, double vision or eye pain ENT HEENT: Denies ear pain, epistaxis, headache(s), nasal congestion, post nasal drip or sore throat Cardiovascular Cardiovascular: Denies chest pain, dyspnea on exertion, edema, lightheadedness, orthopnea, palpitations, paroxysmal nocturnal dyspnea or syncope Respiratory/Chest Respiratory/Chest: Denies cough, dyspnea, hemoptysis, productive cough, shortness of breath at rest, shortness of breath with exertion or wheezing Gastrointestinal Gastrointestinal: Denies abdominal pain, constipation, diarrhea, hematemesis, hematochezia, melena, nausea or vomiting Genitourinary Genitourinary: Denies burning urination, dysuria, hematuria, urinary hesitancy or urinary urgency Musculoskeletal Musculoskeletal: Denies arthralgias, back pain, joint pain, joint swelling, myalgias or neck pain Neurologic Neurologic: Reports abnormal speech, confusion and focal weakness; Denies dizziness, headache(s), numbness, paresthesias, seizures, tingling or tremor(s) Psychiatric Psychiatric: Reports anxiety and depression; Denies homicidal ideation or suicidal ideation Endocrine Endocrinology: Denies change in body appearance, cold intolerance, heat intolerance, polydipsia or polyuria Hematologic/Lymphatic Hematologic/Lymphatic: Reports other; Denies easy bleeding, easy bruising or lymphadenopathy Allergic/Immunologic Allergic/Immunologic: Denies itchy eyes, rhinitis, throat swelling, tongue swelling, hives, urticaria or wheezing Vital Signs Vital Signs Vital Signs: 04/06/21 11:23 04/06/21 11:35 04/06/21 11:42 Temperature 97.5 F L 97.6 F L Temperature Source Temporal Axillary Pulse Rate 116 H 109 H Respiratory Rate 18 17 Blood Pressure 115/66 115/66 Blood Pressure Mean 82 82 Blood Pressure Source Monitor Blood Pressure Position Semi-Fowlers Blood Pressure Location Left Arm Pulse Ox 97 93 Oxygen Delivery Method Room Air Room Air Oxygen Flow Rate (L/min) 04/06/21 11:57 04/06/21 12:12 04/06/21 12:27 Temperature 97.2 F L 97.5 F L 97.1 F L Temperature Source Temporal Temporal Temporal Pulse Rate 107 H 105 H 98 Respiratory Rate 16 20 H 16 Blood Pressure 133/76 H 122/71 H 133/78 H Blood Pressure Mean 95 88 96 Blood Pressure Source Monitor Monitor Monitor Blood Pressure Position Semi-Fowlers Semi-Fowlers Semi-Fowlers Blood Pressure Location Left Arm Left Arm Left Arm Pulse Ox 100 100 100 Oxygen Delivery Method Nasal Cannula Nasal Cannula Nasal Cannula Oxygen Flow Rate (L/min) 4 4 4 04/06/21 12:42 04/06/21 12:56 04/06/21 12:57 Temperature 97.6 F L 97.3 F L Temperature Source Temporal Temporal Pulse Rate 97 100 Respiratory Rate 17 19 H Blood Pressure 133/77 H 126/73 H Blood Pressure Mean 95 90 Blood Pressure Source Monitor Monitor Blood Pressure Position Semi-Fowlers Semi-Fowlers Blood Pressure Location Left Arm Left Arm Pulse Ox 100 100 Oxygen Delivery Method Nasal Cannula Nasal Cannula Nasal Cannula Oxygen Flow Rate (L/min) 4 4 4 04/06/21 13:12 Temperature 97.3 F L Temperature Source Temporal Pulse Rate 104 H Respiratory Rate 18 Blood Pressure 128/91 H Blood Pressure Mean 103 Blood Pressure Source Monitor Blood Pressure Position Semi-Fowlers Blood Pressure Location Left Arm Pulse Ox 100 Oxygen Delivery Method Nasal Cannula Oxygen Flow Rate (L/min) 4 Physical Exam Const alert, oriented x3, no apparent distress and no limitations General Appearance: cooperative, comfortable and well kempt HEENT normocephalic and moist oral mucous membranes HEENT Narrative: Traumatic, small laceration above the left eyebrow. Head and Scalp: normocephalic and atraumatic Eyes PERRL, EOMs intact bilaterally, conjunctivae normal and no scleral icterus General Eye: normal appearance of both eyes Periorbital: periorbital findings normal Neck no lymphadenopathy, supple, no meningeal signs, no JVD and no carotid bruits General: trachea midline Thyroid: thyroid normal Resp normal respiratory effort, normal air movement and clear to auscultation bilaterally Resp Narrative: Diminished breath sounds bilateral, otherwise clear. Auscultation: Negative for crackles, rales, rhonchi or wheezes Cardio regular rate, regular rhythm, S1 normal heart sound, S2 normal heart sound and no JVD Peripheral Pulses: pulses 2+ throughout GI normal to inspection, nondistended, normoactive bowel sounds, soft to palpation, non-tender and non-distended; Negative for hepatosplenomegaly GI Narrative: Obese. Auscultation: normoactive bowel sounds Extremity normal to inspection and no clubbing, cyanosis or edema Extremity Narrative: Chronic right foot drop. Skin no rashes or lesions noted and no petechiae Skin Narrative: Small laceration above the left eyebrow. Neuro oriented x3 Neuro Narrative: Dysarthria, right facial droop. Power on the left side is 5 x 5. Power on the right upper extremity is 3 x 5, power on the left lower extremity is 5 x 5. Chronic right foot drop. Sensorium / Orientation: alert Psych mental status grossly normal, affect normal and denies hallucinations Lab / Micro Data Result Diagrams: 04/06/21 11:15 04/06/21 11:15 Labs: Laboratory Results - last 24 hr 04/06/21 04/06/21 04/06/21 11:15 11:15 11:15 WBC 24.3 H RBC 3.59 L Hgb 7.5 L Hct 26.2 L MCV 73.0 L MCH 20.9 L MCHC 28.6 L RDW Std Deviation 44.0 H RDW Coeff of Alvarado 16.9 H Plt Count 517 H MPV 10.6 Immature Gran % (Auto) 1.100 H Neut % (Auto) 88.1 H Lymph % (Auto) 5.0 L [place] % (Auto) 5.3 Eos % (Auto) 0.2 Baso % (Auto) 0.3 Absolute Neuts (auto) 21.4 H Absolute Lymphs (auto) 1.21 Nucleated RBC % 0.1 Hypochromasia 1+ PT 14.4 INR 1.2 APTT 22.7 L Sodium 125 L Potassium 4.3 Chloride 88 L Carbon Dioxide 19.0 L Anion Gap 18 H BUN 50 H Creatinine 2.58 H Estim Creat Clear Calc 14.87 Est GFR (MDRD) Af Amer 23 L Est GFR (MDRD) Non-Af 19 L BUN/Creatinine Ratio 19.4 Glucose 551 H* Calcium 10.9 H Total Bilirubin Direct Bilirubin AST ALT Alkaline Phosphatase Total Creatine Kinase Troponin I 0.023 Total Protein Albumin Globulin 04/06/21 04/06/21 11:15 11:15 WBC RBC Hgb Hct MCV MCH MCHC RDW Std Deviation RDW Coeff of Alvarado Plt Count MPV Immature Gran % (Auto) Neut % (Auto) Lymph % (Auto) [place] % (Auto) Eos % (Auto) Baso % (Auto) Absolute Neuts (auto) Absolute Lymphs (auto) Nucleated RBC % Hypochromasia PT INR APTT Sodium Potassium Chloride Carbon Dioxide Anion Gap BUN Creatinine Estim Creat Clear Calc Est GFR (MDRD) Af Amer Est GFR (MDRD) Non-Af BUN/Creatinine Ratio Glucose Calcium Total Bilirubin 0.90 Direct Bilirubin 0.13 AST 18 ALT 15 Alkaline Phosphatase 101 Total Creatine Kinase 102 Troponin I Total Protein 7.6 Albumin 3.5 Globulin 4.[address] 04/06/21 11:24 IMPRESSION: Chronic involutional changes of the brain. N.B. : The above information has been verbally conveyed by Avery Pabon MD to Srini Rodriguez on 04/06/2021 11:41:00 (ET). Electronically Signed: Avery Pabon MD at 11:42 EDT , Service support , ADDENDUM: 04/06/21 1149 IMPRESSION: Chronic involutional changes of the brain. N.B. : The above information has been verbally conveyed by Avery Pabon MD to Srini Rodriguez on 04/06/2021 11:41:00 (ET). Electronically Signed: Avery Pabon MD at 11:42 EDT , Service support , Chest X-Ray 04/06/21 11:24 IMPRESSION: Large hiatal hernia. No acute abnormality is seen. Electronically Signed: Avery Pabon MD at 12:17 EDT , Service support , Head/Neck CTA 04/06/21 11:25 IMPRESSION: Atherosclerotic plaques at the origin of both the right and left internal carotid arteries causing less than 50% stenosis. N.B. : The above information has been verbally conveyed by Avery Pabon MD to Srini Rodriguez on 04/06/2021 11:48:58 (ET). Electronically Signed: Avery Pabon MD at 11:50 EDT , Service support , ADDENDUM: 04/06/21 1157 IMPRESSION: Atherosclerotic plaques at the origin of both the right and left internal carotid arteries causing less than 50% stenosis. N.B. : The above information has been verbally conveyed by Avery Pabon MD to Srini Rodriguez on 04/06/2021 11:48:58 (ET). Electronically Signed: Avery Pabon MD at 11:50 EDT , Service support , Assessment & Plan Assessment/Plan (1) Acute on chronic anemia: (2) Acute ischemic left MCA stroke: (3) Hyperglycemia due to type 2 diabetes mellitus: (4) Anemia: (5) Hypertension: QUALIFIERS: Hypertension type: essential hypertension Qualified Code(s): I10 - Essential (primary) hypertension (6) Anxiety and depression: (7) Iron deficiency anemia: QUALIFIERS: Iron deficiency anemia type: unspecified iron deficiency Qualified Code(s): D50.9 - Iron deficiency anemia, unspecified (8) Stage 3a chronic kidney disease: (9) Diabetes mellitus, type 2: (10) Leukocytosis: PLAN: This is a 80 years old female patient presented to the emergency room because of right facial droop, slurred speech and right-sided weakness, found to have elevated NIH stroke scale consistent with acute stroke, received TPA and she was found to have acute on chronic anemia, YRIS on stage IIIa chronic kidney disease, hyperglycemia and significant leukocytosis. #1 acute ischemic stroke: Status post TPA. With resultant right-sided facial droop and right upper extremity monoparesis. CT scan brain reviewed as well as CTA of the neck. EKG revealed sinus tachycardia, no acute changes. Currently, blood pressure stable, not elevated. Plan: Admit to ICU, critical care monitoring, post TPA protocol, critical care consult, gentle IV fluids for hydration, MRI brain in 24 hours, 2D echocardiogram, Tylenol as needed, Zofran as needed, reconsult SOC telemetry neurology after getting the MRI in 24 hours, PT OT evaluation treatment, speech therapy evaluation and treatment. #2 acute on chronic anemia: It is microcytic anemia, baseline hemoglobin has b een around 9 g/dL. Currently, no active bleeding. Admission globin is 7.5 g/dL. Plan to repeat H&H at 8 PM tonight, repeat CBC tomorrow morning, transfuse if hemoglobin less than 8 g/dL. #3 acute kidney injury on top of stage IIIa chronic kidney disease: Baseline creatinine has been around 1 to 1.3 mg/dL, GFR has been in the 50s. Admission creatinine is 2.58. Plan: Gentle IV fluid hydration, avoid nephrotoxic drugs, input output chart, repeat BMP tomorrow morning. #4 hyperglycemia: Serum bicarb is 19, anion gap is 18, not clear if the patient has DKA or not. Patient received subcu insulin in the ED. Plan: Accu-Cheks every 4 hours, start Lantus twice daily, sliding scale, check hemoglobin A1c, ABG to rule out DKA. #5 leukocytosis/lactic acidosis: Probably reactive. No fever. Chest x-ray showed no acute findings. Plan: Urinalysis, urine culture, blood culture, IV fluids, repeat lactic acid in 3 hours. Currently, no indication for IV antibiotics. #6 hyponatremia: It is chronic, admission sodium was 125. Sodium has been in the range of 125-132, plan to monitor, IV fluids, repeat BMP tomorrow morning. #7 hypertension: Blood pressure stable. Plan to hold lisinopril. #8 anxiety and depression: Hold Ativan, duloxetine and trazodone. #9 CODE STATUS: Full code, discussed with the patient's daughter. #10 DVT prophylaxis: Status post TPA. This note was generated with [employer] dictation software. It may contain incorrect words, spelling, and punctuation that were not noted in checking the note before signing. Visit Charges Inpatient E&M: 29907 Init Hosp L3
[2021-04-06 13:56] LABS: Lactic Acid 3.5 mmol/L (0.4-1.9)
--- NOTE | 2021-04-06 14:52 | ECHOD_ITS ---
Reason For Study: TIA/CVA Procedure This was a 2D Doppler, Color Flow transthoracic echocardiogram. The study was technically difficult. Exam performed portable in ICU/CCU. Left Ventricle Normal LV size. Left ventricular systolic function is normal. The estimated ejection fraction is 55 %. Septal bounce. Transmitral diastolic flow velocities suggest moderate (stage 2) diastolic dysfunction (pseudonormal pattern). Right Ventricle Normal RV size. Normal systolic function. Atria Normal left atrium. Normal right atrium. Hypermobile atrial septum. Mitral Valve There is no mitral annular calcification. Normal mitral valve. Mild (1+) mitral valve insufficiency. Tricuspid Valve Normal tricuspid valve. Mild tricuspid valve insufficiency. Right ventricular systolic pressure estimated to be 61 mmHg. Aortic Valve Trisinus/trileaflet aortic valve. Normal aortic valve. Pulmonic Valve The pulmonic valve is not well visualized. Trivial pulmonic valve insufficiency. Great Vessels Borderline enlarged aortic root. Pericardium/Pleural No pericardial effusion. MMode/2D Measurements & Calculations LVIDd: 4.6 cm IVSd: 1.3 cm Ao root diam: 3.9 cm LVIDs: 4.0 cm LVPWd: 1.2 cm LA dimension: 3.1 cm RVDd: 3.1 cm FS: 13.7 % LAV(MOD-bp): 47.9 ml LVAd ap4: 29.3 cm2 SV(MOD-sp4): 28.9 ml LAV(MOD-bp) Indexed: 25.3 ml/m2 LVLd ap4: 7.9 cm LAV(MOD-sp2): 51.9 ml EDV(MOD-sp4): 90.6 ml LAV(MOD-sp4): 45.1 ml EDV(sp4-el): 92.8 ml LVAs ap4: 22.9 cm2 LVLs ap4: 6.9 cm ESV(MOD-sp4): 61.7 ml ESV(sp4-el): 64.4 ml EF(MOD-sp4): 31.9 % EF(sp4-el): 30.6 % SV(sp4-el): 28.4 ml LA A4 area: 17.6 cm2 RA A4 area: 15.0 cm2 Time Measurements MV dec time: 0.11 sec Doppler Measurements & Calculations MV E max laquita: 143.6 cm/sec MV V2 max: 150.7 cm/sec MV P1/2t max laquita: 146.4 cm/sec MV A max laquita: 89.3 cm/sec MV max P.1 mmHg MV P1/2t: 29.7 msec MV E/A: 1.6 MV V2 mean: 86.4 cm/sec MV mean P.6 mmHg MV dec slope: 1445 cm/sec2 MV V2 VTI: 23.6 cm MVA(P1/2t): 7.4 cm2 Ao V2 max: 149.5 cm/sec LV V1 max: 133.5 cm/sec PA V2 max: 82.0 cm/sec Ao max P.9 mmHg LV V1 max P.1 mmHg TR max laquita: 381.2 cm/sec TR max P.1 mmHg ECHO/Echo Complete Interpretation Summary The study was technically difficult. Left ventricular systolic function is normal. The estimated ejection fraction is 55 %. Septal bounce. Hypermobile atrial septum. Mild (1+) mitral valve insufficiency. Mild tricuspid valve insufficiency. Trivial pulmonic valve insufficiency. Borderline enlarged aortic root. Right ventricular systolic pressure estimated to be 61 mmHg c/w pulmonary hyper tension. Transmitral diastolic flow velocities suggest diastolic dysfunction (pseudonorm al pattern). Ordering Physician: Shailesh Coles Referring Physician: KELLEY Christensen M.D. Performed By: Adonis Rebollar RCS
[2021-04-06] MEDS: 0.9% Normal Saline 1,000 ML 75 ML IV (14:59)
[2021-04-06 15:15] LABS: Bedside Glucose 282 mg/dL (70-110)
--- NOTE | 2021-04-06 15:15 | EX.PCM.CONCC ---
Assessment & Plan Assessment/Plan (1) Acute ischemic left MCA stroke: (2) Hyperglycemia due to type 2 diabetes mellitus: (3) Stage 3a chronic kidney disease: (4) Anxiety and depression: (5) Congestive heart failure: (6) Acute on chronic anemia: PLAN: RECOMMENDATIONS: 1. Continue with post TPA protocol 2. Bolus with IV fluids 3. Add chemistries to evening labs 4. Possible blood transfusion pending repeat H&H 5. Aggressive blood sugar correction with insulin IMPRESSIONS: 1. Probable acute left MCA stroke Patient did receive TPA. Patient should be continued on post TPA protocol. CTA of the head and neck did not show a large vessel occlusion. Patient failed bedside swallow evaluation, so will be n.p.o. for now. Reevaluate after 24 hours. Patient did have some marginal blood counts on initial presentation. No active blood loss appreciated by history. Agree with rechecking H&H this evening and transfusing if hemoglobin less than 8. Patient does not appear to have expanding hematomas at this time. 2. Acute kidney injury on chronic kidney disease stage IIIa Patient may have an element of prerenal etiology secondary to polyuria associated with hyperglycemia. Patient appears to have poor insight into diabetes diagnosis. Aggressive correction will be ordered. Patient will receive some volume resuscitation. However, will attempt to avoid aggressive fluid resuscitation as this could worsen edema associated with acute CVA. We will add chemistries to the evening labs. This will likely be exacerbated by contrast associated with problem #1. 3. Acute on chronic anemia Patient with a decrease in hemoglobin. No clinical blood loss at this time. Recheck H&H and transfuse appropriately. Patient may require outpatient work-up. 4. Pseudohyponatremia Patient with admission sodium of 125, but this does correct when glucose is accounted for. No acute intervention is required. 5. Diabetes mellitus/hypertension/anxiety/depression/recent fall Complicates care, management allow for permissive hypertension to some point given TPA. Patient currently n.p.o. secondary to dysphagia. Could consider hemoglobin A1c as an outpatient, but anticipate poor control. Given swelling of the knees, x-rays will be ordered. HPI Consult Data Date of Consult: 04/06/21 HPI Narrative HPI Narrative: NIA HAMILTON is a 80-year-old female, currently with past medical history listed below, who presented to [facility] on 04/06/2021 secondary to a fall. Patient reportedly fell at approximately 830 this morning and daughters had evaluated the patient and stated that she was fine except for a forehead abrasion. At approximately 1045, the patient was using the restroom and made a sound. On arrival, patient's daughter, who is a nurse, reported she was flaccid on the right side with a facial droop and dysarthria. EMS was called and patient was transported to the ER for further evaluation. Patient is not on anticoagulants at baseline. Patient reportedly was told that she had diabetes approximately a month ago. Patient did report that she was not feeling right for the last day or so. In the ER, patient was tachycardic to 116 bpm, but normotensive at 115/66 and saturating well on room air. Patient's initial NIH was 19 and a stroke team was activated. Patient was given TPA. Laboratory data subsequently showed a white blood cell count of 24.3, hemoglobin of 7.5 and platelets of 517. Coagulation studies were within normal limits. Patient did have an elevated creatinine of 2.58 with a BUN of 50. Bicarbonate was decreased at 19 and anion gap was elevated at 18. Initial troponins were negative, but lactate was elevated at 3.5. CT of the head did not show any acute cerebral hemorrhage. Patient did receive a CTA of the head and neck showing no obvious large vessel occlusion. Since being in the intensive care unit, patient's NIH has improved to as low as 7. This has fluctuated between 7 and 9 secondary to a right facial droop, slight visual defect, right-sided paralysis and dysarthria. Patient is not reporting any recent acute blood loss. Patient is reporting bilateral knee pain and states that she did fall to her knees this morning. Review of systems otherwise negative from a constitutional, HEENT, respiratory, cardiovascular, GI, genitourinary, musculoskeletal, skin, neurologic, psychiatric and hematologic system unless stated above. [facility] Medical History (Updated 04/06/21 @ 14:[address] Shailesh Coles MD) Anxiety Congestive heart failure (CHF) Depression Diabetes Hypertension Kidney disease Home Medications duloxetine 60 mg PO DAILY 11/23/18 [History Last Taken 04/06/21] trazodone 100 mg PO QHS 11/23/18 [History Last Taken 04/06/21] pantoprazole 40 mg PO DAILY 12/23/19 [History Last Taken 04/06/21] polysaccharide iron complex 150 mg PO DAILY 12/23/19 [History Last Taken 04/06/21] potassium chloride 20 meq PO DAILY 04/11/20 [History Last Taken 04/06/21] cetirizine 10 mg PO DAILY 08/29/20 [History Last Taken 04/06/21] guaifenesin 600 mg PO BID 08/29/20 [History Last Taken 04/06/21] mirtazapine 15 mg PO QHS 08/30/20 [History Last Taken 04/06/21] lisinopril 20 mg PO DAILY #90 tab 08/31/20 [Rx Last Taken 04/06/21] metformin 500 mg PO BID #120 tab 08/31/20 [Rx Last Taken 04/06/21] celecoxib 100 mg PO DAILY 04/06/21 [History Last Taken 04/06/21] lorazepam 0.5 mg PO BID 04/06/21 [History Last Taken 04/06/21] lorazepam 1 mg PO QHS 04/06/21 [History Last Taken 04/06/21] Allergy/AdvReac Type Severity Reaction Status Date / Time morphine AdvReac delirium Verified 04/06/21 12:07 Family History Father Brain tumor Mother Gallbladder disease Surgical History (Updated 04/06/21 @ 13:[address] Shailesh Coles MD) History of hip replacement Social History (Updated 04/06/21 @ 12:[address] Srini Rodriguez DO) household members: none Smoking Status: Never smoker substance use type: does not use ROS ROS Narrative See HPI Physical Exam Const alert and oriented x3 General Appearance: cooperative HEENT normocephalic Head and Scalp: abrasion Abrasion Size: Bilateral on the eyebrow. Slight bleeding noted. Face and Sinus: facial abrasion Nose: external nose normal Mouth: oral and palatal mucosa normal and lips normal Eyes PERRL and EOMs intact bilaterally Neck supple, no JVD and no carotid bruits Chest inspection of chest normal Resp normal respiratory effort and clear to auscultation bilaterally Cardio regular rate and no murmurs GI normal to inspection, nondistended, normoactive bowel sounds and soft to palpation Extremity normal capillary refill General Extremity: Negative for edema Right Lower Extremity: knee joint inspection (Erythema and swelling) and palpation (Pain) Left Lower Extremity: knee joint inspection (Erythema and swelling) and palpation (Pain) Skin Skin Narrative: Scattered abrasions noted. Slight bleeding noted of the left eyebrow lesion, but no gaping. Neuro Neuro Narrative: Right-sided paralysis. Right facial droop noted. Slight dysarthria. Right temporal visual field defect. [place] Coma Scale: document GCS findings Spontaneous Obeys Commands Oriented 15 Psych cooperative and affect normal Lab / Micro Data Result Diagrams: 04/06/21 11:15 04/06/21 11:15 Labs: Laboratory Results - last 24 hr 04/06/21 04/06/21 04/06/21 11:15 11:15 11:15 WBC 24.3 H RBC 3.59 L Hgb 7.5 L Hct 26.2 L MCV 73.0 L MCH 20.9 L MCHC 28.6 L RDW Std Deviation 44.0 H RDW Coeff of Alvarado 16.9 H Plt Count 517 H MPV 10.6 Immature Gran % (Auto) 1.100 H Neut % (Auto) 88.1 H Lymph % (Auto) 5.0 L Greer % (Auto) 5.3 Eos % (Auto) 0.2 Baso % (Auto) 0.3 Absolute Neuts (auto) 21.4 H Absolute Lymphs (auto) 1.21 Nucleated RBC % 0.1 Hypochromasia 1+ PT 14.4 INR 1.2 APTT 22.7 L Sodium 125 L Potassium 4.3 Chloride 88 L Carbon Dioxide 19.0 L Anion Gap 18 H BUN 50 H Creatinine 2.58 H Estim Creat Clear Calc 14.87 Est GFR (MDRD) Af Amer 23 L Est GFR (MDRD) Non-Af 19 L BUN/Creatinine Ratio 19.4 Glucose 551 H* Lactic Acid Calcium 10.9 H Total Bilirubin Direct Bilirubin AST ALT Alkaline Phosphatase Total Creatine Kinase Troponin I 0.023 Total Protein Albumin Globulin 04/06/21 04/06/21 04/06/21 11:15 11:15 13:15 WBC RBC Hgb Hct MCV MCH MCHC RDW Std Deviation RDW Coeff of Alvarado Plt Count MPV Immature Gran % (Auto) Neut % (Auto) Lymph % (Auto) Greer % (Auto) Eos % (Auto) Baso % (Auto) Absolute Neuts (auto) Absolute Lymphs (auto) Nucleated RBC % Hypochromasia PT INR APTT Sodium Potassium Chloride Carbon Dioxide Anion Gap BUN Creatinine Estim Creat Clear Calc Est GFR (MDRD) Af Amer Est GFR (MDRD) Non-Af BUN/Creatinine Ratio Glucose Lactic Acid 3.5 H* Calcium Total Bilirubin 0.90 Direct Bilirubin 0.13 AST 18 ALT 15 Alkaline Phosphatase 101 Total Creatine Kinase 102 Troponin I Total Protein 7.6 Albumin 3.5 Globulin 4.[address] 04/06/21 11:24 IMPRESSION: Chronic involutional changes of the brain. N.B. : The above information has been verbally conveyed by Avery Pabon MD to Srini Rodriguez on 04/06/2021 11:41:00 (ET). Electronically Signed: Avery Pabon MD at 11:42 EDT , Service support , ADDENDUM: 04/06/21 1149 IMPRESSION: Chronic involutional changes of the brain. N.B. : The above information has been verbally conveyed by Avery Pabon MD to Srini Rodriguez on 04/06/2021 11:41:00 (ET). Electronically Signed: Avery Pabon MD at 11:42 EDT , Service support , Chest X-Ray 04/06/21 11:24 IMPRESSION: Large hiatal hernia. No acute abnormality is seen. Electronically Signed: Avery Pabon MD at 12:17 EDT , Service support , Head/Neck CTA 04/06/21 11:25 IMPRESSION: Atherosclerotic plaques at the origin of both the right and left internal carotid arteries causing less than 50% stenosis. N.B. : The above information has been verbally conveyed by Avery Pabon MD to Srini Rodriguez on 04/06/2021 11:48:58 (ET). Electronically Signed: Avery Pabon MD at 11:50 EDT , Service support , ADDENDUM: 04/06/21 1157 IMPRESSION: Atherosclerotic plaques at the origin of both the right and left internal carotid arteries causing less than 50% stenosis. N.B. : The above information has been verbally conveyed by Avery Pabon MD to Srini Rodriguez on 04/06/2021 11:48:58 (ET). Electronically Signed: Avery Pabon MD at 11:50 EDT , Service support , Charges/Coding Visit Charges Inpatient E&M: 23771 Init Hosp L3
[2021-04-06] MEDS: Insulin Lispro 100 UNIT/ML INSULN.PEN SC ×3 (15:16→21:30)
[2021-04-06 15:20] LABS: Hemoglobin A1c 7.9 % (3.8-5.6)
--- NOTE | 2021-04-06 15:58 | RAD_ITS ---
STUDY: X-RAY - RIGHT KNEE REASON FOR EXAM: Female, 80 years old. PAIN, S/P FALL TECHNIQUE: 2 view(s) of the knee. COMPARISON: None. FINDINGS: There is demineralization of the visualized distal femur. There is demineralization of the tibia and fibula. Normal proximal tibiofibular articulation. Normal medial femorotibial compartment. Normal lateral femorotibial compartment. Normal patellofemoral articulation. There is soft tissue edema on the medial aspect of the knee. RAD/Knee 1 or 2 Views IMPRESSION: Soft tissue edema medial aspect of the knee.. Electronically Signed: Kyra Metcalf MD at 4:41 EDT Tel , Service support ,
--- NOTE | 2021-04-06 15:58 | RAD_ITS ---
STUDY: X-RAY - LEFT KNEE REASON FOR EXAM: Female, 80 years old. Pain, s/p fall TECHNIQUE: 2 view(s) of the knee. COMPARISON: None. FINDINGS: There is demineralization of the visualized distal femur. There is demineralization of the tibia and fibula. Normal proximal tibiofibular articulation. There is mild degenerative arthrosis of the medial femorotibial compartment. There is mild degenerative arthrosis of the lateral femorotibial compartment. There is mild degenerative arthrosis of the patellofemoral articulation. The soft tissue structures are unremarkable. RAD/Knee 1 or 2 Views IMPRESSION: Bony osteopenia and degenerative change. No visualized acute fracture. Electronically Signed: Kyra Metcalf MD at 4:50 EDT Tel , Service support ,
--- NOTE | 2021-04-06 16:39 | CHAPLAIN ---
Type of Pastoral Visit ___ Initial Visit ___ Follow-up Visit ___ On-call Visit ___ General Patient Visit ___ Spiritual Assessment ___ Family Conference ___ Bereavement _x__ Rapid Response ___ Code Blue ___ Other (describe below) Pastoral Care Referral From ___ Patient ___ Family ___ Nurse ___ Physician ___ Handle Bender ___ [employer] _x__ Other (describe below) Sacrament/Intervention _x__ Active listening ___ Anointing ___ Taoism ___ Bereavement ___ Communion ___ Tete exploration ___ ___ Life review ___ Prayer ___ Reconciliation ___ Sacrament of Sick _x__ Supportive presence ___ Wedding ___ Other (describe below) Pastoral Comments came to ED for stroke alert and patient was being evaluated and sent on to CT; daughter was present at this moment and showed her to pt room and offered presence and support; no other needs at this time; SW also present
[2021-04-06 17:22] LABS: Reflex Lactate? Y
[2021-04-06 18:46] LABS: Lactic Acid 1.2 mmol/L (0.4-1.9)
[2021-04-06 19:06] LABS: Bedside Glucose 203 mg/dL (70-110)
[2021-04-06] MEDS: Famotidine 200 MG/20 ML MDV 20 MG in 0.9% Normal Saline (Pres. free 8 ML 300 MG IV (20:04)
[2021-04-06 20:41] LABS: Hematocrit 22.6 % (37-47); Hemoglobin 6.7 g/dL (12.0-15.0)
[2021-04-06 20:55] LABS: Anion Gap 9 (5-15); BUN 47 mg/dL (7-18); BUN/Creat Ratio 30.5 RATIO (10-20); Calcium,Total 9.6 mg/dL (8.5-10.1); Chloride 103 mmol/L (98-107); Creatinine, Serum 1.54 mg/dL (0.55-1.02); EST Glomerular Filtration Rate 35 mL/min (>60); Est Glom Filt Rate - Afr Amer 42 mL/min (>60); Estimated Creatinine Clearance 30.37 ml/min; Glucose 182 mg/dL (74-106); Magnesium 1.8 mg/dL (1.6-2.6); Potassium 3.5 mmol/L (3.5-5.1); Sodium Level 133 mmol/L (136-145)
[2021-04-06 21:01] LABS: Phosphorus 2.9 mg/dL (2.5-4.9)
[2021-04-06 22:51] LABS: Bedside Glucose 151 mg/dL (70-110)
[2021-04-07] VITALS (35 sets, daily range): BP systolic 95–177; BP diastolic 55–103; PULSE 77–119; RESP 16–31; TEMP 36.4–37.2; O2SAT 92–98; BMI 25.4
[2021-04-07 04:34] LABS: Absolute Lymphocyte Count 1.08 X10^3/uL (0.83-4.51); Absolute Neutrophil Count 14.6 X10^3/uL (2.0-7.7); Basophil# 0.07 X10^3/uL; Basophil% 0.4 % (0-1); Eosinophil# 0.01 X10^3/uL; Eosinophils% 0.1 % (0-5); Hematocrit 24.4 % (37-47); Hemoglobin 7.4 g/dL (12.0-15.0); Lymphocyte # 1.08 X10^3/ul (0.83-4.51); Lymphocyte % 6.3 % (19-41); Mean Corp Hgb Conc 30.3 g/dL (32-36); Mean Corpuscular Volume 75.8 fL (81-99); Mean Platelet Vol. 10.2 fl (6.2-12.0); Monocyte# 1.21 X10^3/uL; Monocyte% 7.1 % (0-10); NRBC Flagged by Analyzer 0.1 % (0-5); Neutrophil # 14.56 X10^3/uL (2.7-7.7); Neutrophil % 85.2 % (47-70); Platelet Count 265 K/mm3 (150-450); RBC Distribution Width CV 18.1 % (11.6-14.6); RBC Distribution Width SD 48.8 fl (35.1-43.9); Red Blood Count 3.22 M/mm3 (4.2-5.4); White Blood Count 17.1 K/mm3 (4.4-11.0)
[2021-04-07 04:37] LABS: Anion Gap 8 (5-15); BUN 41 mg/dL (7-18); BUN/Creat Ratio 36.6 RATIO (10-20); Calcium,Total 8.6 mg/dL (8.5-10.1); Chloride 105 mmol/L (98-107); Creatinine, Serum 1.12 mg/dL (0.55-1.02); EST Glomerular Filtration Rate 50 mL/min (>60); Est Glom Filt Rate - Afr Amer 60 mL/min (>60); Estimated Creatinine Clearance 41.76 ml/min; Glucose 127 mg/dL (74-106); Potassium 3.2 mmol/L (3.5-5.1); Sodium Level 137 mmol/L (136-145)
[2021-04-07 04:41] LABS: International Normalized Ratio 1.2; Prothrombin Time (Protime)PT. 14.3 SECONDS (11.7-14.9)
[2021-04-07 05:21] LABS: Bedside Glucose 113 mg/dL (70-110)
[2021-04-07] MEDS: Potassium Chloride 10mEq/100mL 10 MEQ/100 ML IV.SOLN. 100 MEQ IV BOLUS ×4 (06:48→10:32)
[2021-04-07 06:51] LABS: Bedside Glucose 121 mg/dL (70-110)
--- NOTE | 2021-04-07 07:16 | PCM.PN.INT ---
Subjective Subjective Patient did well overnight. Neurologic exam continues to improve. Patient still has a right arm drift, aphasia, dysarthria and a facial droop, so NIH has been between 7 and 8. No bleeding complications were reported. Patient did have some increased urine noted on bladder scanning, but Cazares did not have to be placed. Patient is denying any chest pain, abdominal pain, headache, nausea or vomiting at this time. Nursing did report some concerns with choking associated with nectar thick Objective Data Objective Data Vital Signs: Vital Signs Temp Pulse Resp BP Pulse Ox 37.2 C 108 H 18 157/75 H 95 04/07/21 04:00 04/07/21 06:00 04/07/21 06:00 04/07/21 06:00 04/07/21 06:00 Oxygen Flow Rate (L/min) 2 Oxygen Delivery Method Room Air Weight: 78.7 kg Body Mass Index (BMI) 25.4 Finger Stick Blood Glucose 550 Intake & Output: Intake and Output for Last 24 Hours 04/05/21 04/06/21 04/07/21 23:59 23:59 23:59 Intake Total 3080.53 / 3080.53 400 / 400 Output Total 100 / 200 400 / 400 Balance 2980.53 / 2880.53 0 / 0 Lab / Micro Data Result Diagrams: 04/07/21 04:15 04/07/21 04:15 Labs: Laboratory Results - last 24 hr 04/06/21 04/06/21 04/06/21 11:15 11:15 11:15 WBC 24.3 H RBC 3.59 L Hgb 7.5 L Hct 26.2 L MCV 73.0 L MCH 20.9 L MCHC 28.6 L RDW Std Deviation 44.0 H RDW Coeff of Alvarado 16.9 H Plt Count 517 H MPV 10.6 Immature Gran % (Auto) 1.100 H Neut % (Auto) 88.1 H Lymph % (Auto) 5.0 L [place] % (Auto) 5.3 Eos % (Auto) 0.2 Baso % (Auto) 0.3 Absolute Neuts (auto) 21.4 H Absolute Lymphs (auto) 1.21 Nucleated RBC % 0.1 Hypochromasia 1+ PT 14.4 INR 1.2 APTT 22.7 L Sodium 125 L Potassium 4.3 Chloride 88 L Carbon Dioxide 19.0 L Anion Gap 18 H BUN 50 H Creatinine 2.58 H Estim Creat Clear Calc 14.87 Est GFR (MDRD) Af Amer 23 L Est GFR (MDRD) Non-Af 19 L BUN/Creatinine Ratio 19.4 Glucose 551 H* Hemoglobin A1c Lactic Acid Calcium 10.9 H Phosphorus Magnesium Total Bilirubin Direct Bilirubin AST ALT Alkaline Phosphatase Total Creatine Kinase Troponin I 0.023 Total Protein Albumin Globulin POC Glucose Blood Type Antibody Screen Crossmatch 04/06/21 04/06/21 04/06/21 11:15 11:15 11:15 WBC RBC Hgb Hct MCV MCH MCHC RDW Std Deviation RDW Coeff of Alvarado Plt Count MPV Immature Gran % (Auto) Neut % (Auto) Lymph % (Auto) [place] % (Auto) Eos % (Auto) Baso % (Auto) Absolute Neuts (auto) Absolute Lymphs (auto) Nucleated RBC % Hypochromasia PT INR APTT Sodium Potassium Chloride Carbon Dioxide Anion Gap BUN Creatinine Estim Creat Clear Calc Est GFR (MDRD) Af Amer Est GFR (MDRD) Non-Af BUN/Creatinine Ratio Glucose Hemoglobin A1c 7.9 H Lactic Acid Calcium Phosphorus Magnesium Total Bilirubin 0.90 Direct Bilirubin 0.13 AST 18 ALT 15 Alkaline Phosphatase 101 Total Creatine Kinase 102 Troponin I Total Protein 7.6 Albumin 3.5 Globulin 4.1 POC Glucose Blood Type Antibody Screen Crossmatch 04/06/21 04/06/21 04/06/21 13:15 14:58 17:50 WBC RBC Hgb Hct MCV MCH MCHC RDW Std Deviation RDW Coeff of Alvarado Plt Count MPV Immature Gran % (Auto) Neut % (Auto) Lymph % (Auto) [place] % (Auto) Eos % (Auto) Baso % (Auto) Absolute Neuts (auto) Absolute Lymphs (auto) Nucleated RBC % Hypochromasia PT INR APTT Sodium Potassium Chloride Carbon Dioxide Anion Gap BUN Creatinine Estim Creat Clear Calc Est GFR (MDRD) Af Amer Est GFR (MDRD) Non-Af BUN/Creatinine Ratio Glucose Hemoglobin A1c Lactic Acid 3.5 H* 1.2 Calcium Phosphorus Magnesium Total Bilirubin Direct Bilirubin AST ALT Alkaline Phosphatase Total Creatine Kinase Troponin I Total Protein Albumin Globulin POC Glucose 282 H Blood Type Antibody Screen Crossmatch 04/06/21 04/06/21 04/06/21 18:58 20:30 20:30 WBC RBC Hgb 6.7 L Hct 22.6 L MCV MCH MCHC RDW Std Deviation RDW Coeff of Alvarado Plt Count MPV Immature Gran % (Auto) Neut % (Auto) Lymph % (Auto) [place] % (Auto) Eos % (Auto) Baso % (Auto) Absolute Neuts (auto) Absolute Lymphs (auto) Nucleated RBC % Hypochromasia PT INR APTT Sodium Potassium Chloride Carbon Dioxide Anion Gap BUN Creatinine Estim Creat Clear Calc Est GFR (MDRD) Af Amer Est GFR (MDRD) Non-Af BUN/Creatinine Ratio Glucose Hemoglobin A1c Lactic Acid Calcium Phosphorus 2.9 Magnesium Total Bilirubin Direct Bilirubin AST ALT Alkaline Phosphatase Total Creatine Kinase Troponin I Total Protein Albumin Globulin POC Glucose 203 H Blood Type Antibody Screen Crossmatch 04/06/21 04/06/21 04/06/21 20:30 21:28 22:25 WBC RBC Hgb Hct MCV MCH MCHC RDW Std Deviation RDW Coeff of Alvarado Plt Count MPV Immature Gran % (Auto) Neut % (Auto) Lymph % (Auto) [place] % (Auto) Eos % (Auto) Baso % (Auto) Absolute Neuts (auto) Absolute Lymphs (auto) Nucleated RBC % Hypochromasia PT INR APTT Sodium 133 L Potassium 3.5 Chloride 103 Carbon Dioxide 21.0 Anion Gap 9 BUN 47 H Creatinine 1.54 H Estim Creat Clear Calc 30.37 Est GFR (MDRD) Af Amer 42 L Est GFR (MDRD) Non-Af 35 L BUN/Creatinine Ratio 30.5 H Glucose 182 H Hemoglobin A1c Lactic Acid Calcium 9.6 Phosphorus Magnesium 1.8 Total Bilirubin Direct Bilirubin AST ALT Alkaline Phosphatase Total Creatine Kinase Troponin I Total Protein Albumin Globulin POC Glucose 151 H Blood Type A POSITIVE Antibody Screen NEGATIVE Crossmatch See Detail 04/07/21 04/07/21 04/07/21 04:15 04:15 04:15 WBC 17.1 H RBC 3.22 L Hgb 7.4 L Hct 24.4 L MCV 75.8 L MCH 23.0 L MCHC 30.3 L D RDW Std Deviation 48.8 H RDW Coeff of Alvarado 18.1 H Plt Count 265 MPV 10.2 Immature Gran % (Auto) 0.900 Neut % (Auto) 85.2 H Lymph % (Auto) 6.3 L [place] % (Auto) 7.1 Eos % (Auto) 0.1 Baso % (Auto) 0.4 Absolute Neuts (auto) 14.6 H Absolute Lymphs (auto) 1.08 Nucleated RBC % 0.1 Hypochromasia PT 14.3 INR 1.2 APTT Sodium 137 Potassium 3.2 L Chloride 105 Carbon Dioxide 24.0 Anion Gap 8 BUN 41 H Creatinine 1.12 H Estim Creat Clear Calc 41.76 Est GFR (MDRD) Af Amer 60 Est GFR (MDRD) Non-Af 50 L BUN/Creatinine Ratio 36.6 H Glucose 127 H Hemoglobin A1c Lactic Acid Calcium 8.6 Phosphorus Magnesium Total Bilirubin Direct Bilirubin AST ALT Alkaline Phosphatase Total Creatine Kinase Troponin I Total Protein Albumin Globulin POC Glucose Blood Type Antibody Screen Crossmatch 04/07/21 04/07/21 04:16 06:46 WBC RBC Hgb Hct MCV MCH MCHC RDW Std Deviation RDW Coeff of Alvarado Plt Count MPV Immature Gran % (Auto) Neut % (Auto) Lymph % (Auto) [place] % (Auto) Eos % (Auto) Baso % (Auto) Absolute Neuts (auto) Absolute Lymphs (auto) Nucleated RBC % Hypochromasia PT INR APTT Sodium Potassium Chloride Carbon Dioxide Anion Gap BUN Creatinine Estim Creat Clear Calc Est GFR (MDRD) Af Amer Est GFR (MDRD) Non-Af BUN/Creatinine Ratio Glucose Hemoglobin A1c Lactic Acid Calcium Phosphorus Magnesium Total Bilirubin Direct Bilirubin AST ALT Alkaline Phosphatase Total Creatine Kinase Troponin I Total Protein Albumin Globulin POC Glucose 113 H 121 H Blood Type Antibody Screen Crossmatch Radiography Diagnostic Testing: Radiology Impression Brain CT 04/06/21 11:24 IMPRESSION: Chronic involutional changes of the brain. N.B. : The above information has been verbally conveyed by Avery Pabon MD to Srini Rodriguez on 04/06/2021 11:41:00 (ET). Electronically Signed: Avery Pabon MD at 11:42 EDT , Service support , ADDENDUM: 04/06/21 1146 IMPRESSION: Chronic involutional changes of the brain. N.B. : The above information has been verbally conveyed by Avery Pabon MD to Srini Rodriguez on 04/06/2021 11:41:00 (ET). Electronically Signed: Avery Pabon MD at 11:42 EDT , Service support , Chest X-Ray 04/06/21 11:24 IMPRESSION: Large hiatal hernia. No acute abnormality is seen. Electronically Signed: Avery Pabon MD at 12:17 EDT , Service support , Head/Neck CTA 04/06/21 11:25 IMPRESSION: Atherosclerotic plaques at the origin of both the right and left internal carotid arteries causing less than 50% stenosis. N.B. : The above information has been verbally conveyed by Avery Pabon MD to Srini Rodriguez on 04/06/2021 11:48:58 (ET). Electronically Signed: Avery Pabon MD at 11:50 EDT , Service support , ADDENDUM: 04/06/21 1157 IMPRESSION: Atherosclerotic plaques at the origin of both the right and left internal carotid arteries causing less than 50% stenosis. N.B. : The above information has been verbally conveyed by Avery Pabon MD to Srini Rodriguez on 04/06/2021 11:48:58 (ET). Electronically Signed: Avery Pabon MD at 11:50 EDT , Service support , Knee X-Ray 04/06/21 15:58 IMPRESSION: Bony osteopenia and degenerative change. No visualized acute fracture. Electronically Signed: Kyra Metcalf MD at 4:50 EDT Tel , Service support , Knee X-Ray 04/06/21 15:58 IMPRESSION: Soft tissue edema medial aspect of the knee.. Electronically Signed: Kyra Metcalf MD at 4:41 EDT Tel , Service support , Physical Exam Const alert and oriented x3 General Appearance: cooperative HEENT normocephalic Eyes PERRL and EOMs intact bilaterally Neck supple, no JVD and no carotid bruits Chest inspection of chest normal Resp normal respiratory effort and clear to auscultation bilaterally Cardio regular rate and no murmurs GI normal to inspection, nondistended, normoactive bowel sounds and soft to palpation Extremity normal capillary refill General Extremity: Negative for edema Right Lower Extremity: knee joint inspection (Erythema and swelling) and palpation (Pain) Left Lower Extremity: knee joint inspection (Erythema and swelling) and palpation (Pain) Skin Skin Narrative: Scattered abrasions noted. No longer has bleeding noted of the left eyebrow lesion. Neuro Neuro Narrative: Right arm drift. Right facial droop noted. Slight dysarthria. Chastity Coma Scale: document GCS findings Spontaneous Obeys Commands Oriented 15 Psych cooperative and affect normal Assessment & Plan Assessment/Plan (1) Acute ischemic left MCA stroke: (2) Hyperglycemia due to type 2 diabetes mellitus: (3) Stage 3a chronic kidney disease: (4) Anxiety and depression: (5) Congestive heart failure: (6) Acute on chronic anemia: PLAN: RECOMMENDATIONS: 1. Continue with post TPA protocol 2. Await MRI. No indication for repeat CT scan 3. Await speech therapy evaluation. 4. Outpatient work-up for anemia 5. Okay to leave the intensive care unit after MRI if no complications noted IMPRESSIONS: 1. Probable acute left MCA stroke Patient did receive TPA. Patient should be continued on post TPA protocol. CTA of the head and neck did not show a large vessel occlusion. Patient was significant improvement from an NIH of 19-21 to as low as 7. Therapies will be initiated. No concern for intracranial complications at this time clinically. Will obtain an MRI, so repeat CT scan is not necessary. 2. Acute kidney injury on chronic kidney disease stage IIIa Resolved. Patient may have an element of prerenal etiology secondary to polyuria associated with hyperglycemia. Patient appears to have poor insight into diabetes diagnosis. Good response to volume resuscitation. No further boluses would be required. Blood sugars are better controlled, so osmotic diuresis risk is lower. 3. Acute on chronic anemia Patient with a decrease in hemoglobin. No clinical blood loss at this time. Recheck H&H and transfuse appropriately. Patient will require outpatient work-up. 4. Pseudohyponatremia Resolved. Patient with admission sodium of 125, but this does correct when glucose is accounted for. No acute intervention is required. 5. Diabetes mellitus/hypertension/anxiety/depression/recent fall Complicates care, management allow for permissive hypertension to some point given TPA. Patient currently n.p.o. secondary to dysphagia. Could consider hemoglobin A1c as an outpatient, but anticipate poor control. Knee x-ray shows no fracture. There does not appear to be any hemarthrosis on physical exam. Visit Charges Inpatient E&M: 82321 [facility] Hosp L3
[2021-04-07] MEDS: 0.9% Normal Saline 1,000 ML 75 ML IV (07:29)
--- NOTE | 2021-04-07 10:04 | PCM.PN.HOSP ---
Subjective Subjective Follow-up on acute stroke: Patient was seen and examined. Complains of right knee pain from fall. Denied any headaches or dizziness or palpitations. Objective Data Objective Data Vital Signs: Vital Signs Temp Pulse Resp BP Pulse Ox 98.5 F 119 H 23 H 156/78 H 93 04/07/21 08:00 04/07/21 09:00 04/07/21 09:00 04/07/21 09:00 04/07/21 09:00 Oxygen Flow Rate (L/min) 2 Oxygen Delivery Method Room Air Weight: 78.7 kg Body Mass Index (BMI) 25.4 Finger Stick Blood Glucose 550 Intake & Output: Intake and Output for Last 24 Hours 04/05/21 04/06/21 04/07/21 23:59 23:59 23:59 Intake Total 3080.53 / 3080.53 1897.5 / 1897.5 Output Total 100 / 200 450 / 450 Balance 2980.53 / 2880.53 1447.5 / 1447.5 Lab / Micro Data Result Diagrams: 04/08/21 04:00 04/08/21 04:00 Labs: Laboratory Results - last 24 hr 04/06/21 04/06/21 04/06/21 11:15 11:15 11:15 WBC 24.3 H RBC 3.59 L Hgb 7.5 L Hct 26.2 L MCV 73.0 L MCH 20.9 L MCHC 28.6 L RDW Std Deviation 44.0 H RDW Coeff of Alvarado 16.9 H Plt Count 517 H MPV 10.6 Immature Gran % (Auto) 1.100 H Neut % (Auto) 88.1 H Lymph % (Auto) 5.0 L [place] % (Auto) 5.3 Eos % (Auto) 0.2 Baso % (Auto) 0.3 Absolute Neuts (auto) 21.4 H Absolute Lymphs (auto) 1.21 Nucleated RBC % 0.1 Hypochromasia 1+ PT 14.4 INR 1.2 APTT 22.7 L Sodium 125 L Potassium 4.3 Chloride 88 L Carbon Dioxide 19.0 L Anion Gap 18 H BUN 50 H Creatinine 2.58 H Estim Creat Clear Calc 14.87 Est GFR (MDRD) Af Amer 23 L Est GFR (MDRD) Non-Af 19 L BUN/Creatinine Ratio 19.4 Glucose 551 H* Hemoglobin A1c Lactic Acid Calcium 10.9 H Phosphorus Magnesium Total Bilirubin Direct Bilirubin AST ALT Alkaline Phosphatase Total Creatine Kinase Troponin I 0.023 Total Protein Albumin Globulin POC Glucose Blood Type Antibody Screen Crossmatch 04/06/21 04/06/21 04/06/21 11:15 11:15 11:15 WBC RBC Hgb Hct MCV MCH MCHC RDW Std Deviation RDW Coeff of Alvarado Plt Count MPV Immature Gran % (Auto) Neut % (Auto) Lymph % (Auto) [place] % (Auto) Eos % (Auto) Baso % (Auto) Absolute Neuts (auto) Absolute Lymphs (auto) Nucleated RBC % Hypochromasia PT INR APTT Sodium Potassium Chloride Carbon Dioxide Anion Gap BUN Creatinine Estim Creat Clear Calc Est GFR (MDRD) Af Amer Est GFR (MDRD) Non-Af BUN/Creatinine Ratio Glucose Hemoglobin A1c 7.9 H Lactic Acid Calcium Phosphorus Magnesium Total Bilirubin 0.90 Direct Bilirubin 0.13 AST 18 ALT 15 Alkaline Phosphatase 101 Total Creatine Kinase 102 Troponin I Total Protein 7.6 Albumin 3.5 Globulin 4.1 POC Glucose Blood Type Antibody Screen Crossmatch 04/06/21 04/06/21 04/06/21 13:15 14:58 17:50 WBC RBC Hgb Hct MCV MCH MCHC RDW Std Deviation RDW Coeff of Alvarado Plt Count MPV Immature Gran % (Auto) Neut % (Auto) Lymph % (Auto) [place] % (Auto) Eos % (Auto) Baso % (Auto) Absolute Neuts (auto) Absolute Lymphs (auto) Nucleated RBC % Hypochromasia PT INR APTT Sodium Potassium Chloride Carbon Dioxide Anion Gap BUN Creatinine Estim Creat Clear Calc Est GFR (MDRD) Af Amer Est GFR (MDRD) Non-Af BUN/Creatinine Ratio Glucose Hemoglobin A1c Lactic Acid 3.5 H* 1.2 Calcium Phosphorus Magnesium Total Bilirubin Direct Bilirubin AST ALT Alkaline Phosphatase Total Creatine Kinase Troponin I Total Protein Albumin Globulin POC Glucose 282 H Blood Type Antibody Screen Crossmatch 04/06/21 04/06/21 04/06/21 18:58 20:30 20:30 WBC RBC Hgb 6.7 L Hct 22.6 L MCV MCH MCHC RDW Std Deviation RDW Coeff of Alvarado Plt Count MPV Immature Gran % (Auto) Neut % (Auto) Lymph % (Auto) [place] % (Auto) Eos % (Auto) Baso % (Auto) Absolute Neuts (auto) Absolute Lymphs (auto) Nucleated RBC % Hypochromasia PT INR APTT Sodium Potassium Chloride Carbon Dioxide Anion Gap BUN Creatinine Estim Creat Clear Calc Est GFR (MDRD) Af Amer Est GFR (MDRD) Non-Af BUN/Creatinine Ratio Glucose Hemoglobin A1c Lactic Acid Calcium Phosphorus 2.9 Magnesium Total Bilirubin Direct Bilirubin AST ALT Alkaline Phosphatase Total Creatine Kinase Troponin I Total Protein Albumin Globulin POC Glucose 203 H Blood Type Antibody Screen Crossmatch 04/06/21 04/06/21 04/06/21 20:30 21:28 22:25 WBC RBC Hgb Hct MCV MCH MCHC RDW Std Deviation RDW Coeff of Alvarado Plt Count MPV Immature Gran % (Auto) Neut % (Auto) Lymph % (Auto) [place] % (Auto) Eos % (Auto) Baso % (Auto) Absolute Neuts (auto) Absolute Lymphs (auto) Nucleated RBC % Hypochromasia PT INR APTT Sodium 133 L Potassium 3.5 Chloride 103 Carbon Dioxide 21.0 Anion Gap 9 BUN 47 H Creatinine 1.54 H Estim Creat Clear Calc 30.37 Est GFR (MDRD) Af Amer 42 L Est GFR (MDRD) Non-Af 35 L BUN/Creatinine Ratio 30.5 H Glucose 182 H Hemoglobin A1c Lactic Acid Calcium 9.6 Phosphorus Magnesium 1.8 Total Bilirubin Direct Bilirubin AST ALT Alkaline Phosphatase Total Creatine Kinase Troponin I Total Protein Albumin Globulin POC Glucose 151 H Blood Type A POSITIVE Antibody Screen NEGATIVE Crossmatch See Detail 04/07/21 04/07/21 04/07/21 04:15 04:15 04:15 WBC 17.1 H RBC 3.22 L Hgb 7.4 L Hct 24.4 L MCV 75.8 L MCH 23.0 L MCHC 30.3 L D RDW Std Deviation 48.8 H RDW Coeff of Alvarado 18.1 H Plt Count 265 MPV 10.2 Immature Gran % (Auto) 0.900 Neut % (Auto) 85.2 H Lymph % (Auto) 6.3 L [place] % (Auto) 7.1 Eos % (Auto) 0.1 Baso % (Auto) 0.4 Absolute Neuts (auto) 14.6 H Absolute Lymphs (auto) 1.08 Nucleated RBC % 0.1 Hypochromasia PT 14.3 INR 1.2 APTT Sodium 137 Potassium 3.2 L Chloride 105 Carbon Dioxide 24.0 Anion Gap 8 BUN 41 H Creatinine 1.12 H Estim Creat Clear Calc 41.76 Est GFR (MDRD) Af Amer 60 Est GFR (MDRD) Non-Af 50 L BUN/Creatinine Ratio 36.6 H Glucose 127 H Hemoglobin A1c Lactic Acid Calcium 8.6 Phosphorus Magnesium Total Bilirubin Direct Bilirubin AST ALT Alkaline Phosphatase Total Creatine Kinase Troponin I Total Protein Albumin Globulin POC Glucose Blood Type Antibody Screen Crossmatch 04/07/21 04/07/21 04:16 06:46 WBC RBC Hgb Hct MCV MCH MCHC RDW Std Deviation RDW Coeff of Alvarado Plt Count MPV Immature Gran % (Auto) Neut % (Auto) Lymph % (Auto) [place] % (Auto) Eos % (Auto) Baso % (Auto) Absolute Neuts (auto) Absolute Lymphs (auto) Nucleated RBC % Hypochromasia PT INR APTT Sodium Potassium Chloride Carbon Dioxide Anion Gap BUN Creatinine Estim Creat Clear Calc Est GFR (MDRD) Af Amer Est GFR (MDRD) Non-Af BUN/Creatinine Ratio Glucose Hemoglobin A1c Lactic Acid Calcium Phosphorus Magnesium Total Bilirubin Direct Bilirubin AST ALT Alkaline Phosphatase Total Creatine Kinase Troponin I Total Protein Albumin Globulin POC Glucose 113 H 121 H Blood Type Antibody Screen Crossmatch Radiography Diagnostic Testing: Radiology Impression Brain CT 04/06/21 11:24 IMPRESSION: Chronic involutional changes of the brain. N.B. : The above information has been verbally conveyed by Avery Pabon MD to Srini Rodriguez on 04/06/2021 11:41:00 (ET). Electronically Signed: Avery Pabon MD at 11:42 EDT , Service support , ADDENDUM: 04/06/21 1142 IMPRESSION: Chronic involutional changes of the brain. N.B. : The above information has been verbally conveyed by Avery Pabon MD to Srini Rodriguez on 04/06/2021 11:41:00 (ET). Electronically Signed: Avery Pabon MD at 11:42 EDT , Service support , Chest X-Ray 04/06/21 11:24 IMPRESSION: Large hiatal hernia. No acute abnormality is seen. Electronically Signed: Avery Pabon MD at 12:17 EDT , Service support , Head/Neck CTA 04/06/21 11:25 IMPRESSION: Atherosclerotic plaques at the origin of both the right and left internal carotid arteries causing less than 50% stenosis. N.B. : The above information has been verbally conveyed by Avery Pabon MD to Srini Rodriguez on 04/06/2021 11:48:58 (ET). Electronically Signed: Avery Pabon MD at 11:50 EDT , Service support , ADDENDUM: 04/06/21 1157 IMPRESSION: Atherosclerotic plaques at the origin of both the right and left internal carotid arteries causing less than 50% stenosis. N.B. : The above information has been verbally conveyed by Avery Pabon MD to Srini Rodriguez on 04/06/2021 11:48:58 (ET). Electronically Signed: Avery Pabon MD at 11:50 EDT , Service support , Knee X-Ray 04/06/21 15:58 IMPRESSION: Bony osteopenia and degenerative change. No visualized acute fracture. Electronically Signed: Kyra Metcalf MD at 4:50 EDT Tel , Service support , Knee X-Ray 04/06/21 15:58 IMPRESSION: Soft tissue edema medial aspect of the knee.. Electronically Signed: Kyra Metcalf MD at 4:41 EDT Tel , Service support , Physical Exam Narrative General: Alert, Oriented x3, slightly lethargic, cooperative, No apparent distress, Well developed HEENT: Atraumatic Oral: Moist Mucosa Neck: Supple Lungs: Clear to auscultation Cardiovascular: HS I+II, regular, no murmurs Abdomen: Bowel Sounds Present, Soft, Non Tender Extremities: No edema Skin: No rashes, No breakdown Neurological: Right facial droop, power in the RUE 3/5, otherwise 4/5 in all the other extremities Psych/Mental Status: Appropriate Assessment & Plan Assessment/Plan (1) Acute on chronic anemia: (2) Acute ischemic left MCA stroke: (3) Hyperglycemia due to type 2 diabetes mellitus: (4) Hypertension: QUALIFIERS: Hypertension type: essential hypertension Qualified Code(s): I10 - Essential (primary) hypertension (5) Diabetes mellitus, type 2: (6) Leukocytosis: (7) Anxiety and depression: PLAN: 1. Acute ischemic stroke status post TPA (04/06/21 11:45 am) Initial CT of the brain showed chronic involutional changes; CT of the head and neck showed less than 50% stenosis NIHSS is 6, continue on the post-TPA protocol MRI of the brain today, SOC consult later Follow-up on the rest of the orders per Stroke protocol 2. Acute on chronic anemia status post 1 unit blood transfusion Baseline hemoglobin is 9 g/dL, admission hemoglobin was 7.5, repeat was 6.7, transfuse 1 unit of packed RBC Hemoglobin today is 7.4, continue to monitor We will check stool for occult blood, iron studies 3. YRIS on CKD stage III, creatinine is improved Creatinine now is 1.12. Creatinine on admission was 2.58 Continue on gentle IV fluid 4. Hyperglycemia in a known type II DM patient, on Metformin HgbA1c 7.9, on Lantus 10 units BID Will continue with blood glucose checks and ISS 5. Leukocytosis, likely reactive, improved from 24.3 on admission to 17.1, no source of infection, continue to monitor 6. Hyponatremia, resolved 7. Hypokalemia, replace, recheck in a.m. 8. Lactic acidosis likely secondary to #1 and 2 9. Anxiety/depression, will continue to hold Ativan, Remeron, trazodone, will resume later on in the day Visit Charges Inpatient E&M: 04385 Subs Hosp L3
[2021-04-07] MEDS: Acetaminophen 325 MG Tablet 650 MG PO ×2 (10:33→16:44)
--- NOTE | 2021-04-07 11:05 | NURSING ---
RN CM Assessment Introduced role of RN CM to patient. Patient is alert, oriented and able to participate in RN CM Assessment. Care providers, pharmacy, and demographics verified. Most of the assessment was completed but patient continued to having coughing fit and a few assessment questions were unable to be addressed Admit Dx: Acute Stroke Re-Admit: No Barriers/Issues: Patient goes by her middle name Emmy. Patient lives alone and is acute stroke. Patient states that she crawls up steps normally to get into home and then her Dtr pushes her in the WC. States she walks with her Rollator inside the home. PCP: Erick Christensen III Specialists: None Preferred [facility]acy: [facility] Insurance: [employer] [facility] Benefit: Yes LNOK: Dtr Greer Valdez, Dtr Patito Vilchis LW/HPOA: None Living Arrangements: Lives alone in a H, 3 steps to enter home. ADL?s: See above note. Did not address ADLs. Transportation: Did not address DME: Rollator, WC, Shower Chair, Glucometer. HHC: Did not address SNF: Did not address Goal: Patient would be open to going to RU here if qualifies or TCU here but would not want to go to any other SNF. States [facility] HH, TCU, or RU preference. Dtr Patito would be the point of contact to discuss anything further. Aware RNCM and sprinkler worker will continue to follow for needs. SNF and HH In network list provided. DC PLAN: F/u PT/OT eval. RU vs TCU vs Home with [facility] HH. REYNOLD Desouza
[2021-04-07] MEDS: Insulin Lispro 100 UNIT/ML INSULN.PEN SC ×2 (11:18→16:44)
[2021-04-07] MEDS: 0.9% Normal Saline 1,000 ML 50 ML IV (11:19)
[2021-04-07] MEDS: Loratadine 10 MG Tablet PO (11:19)
[2021-04-07 11:31] LABS: Bedside Glucose 382 mg/dL (70-110)
[2021-04-07 11:31] LABS: Iron 25 ug/dL (50-170); Iron Binding Capacity,Total 370 ug/dL (250-450); Magnesium 1.5 mg/dL (1.6-2.6); PERCENT IRON SATURATION 6.8 % (15.0-55.0)
--- NOTE | 2021-04-07 12:00 | MRI_ITS ---
STUDY: MRI BRAIN WITHOUT CONTRAST REASON FOR EXAM: Female, 80 years old. Acute stroke post TPA -- To be done 24 hours after TPA received. TECHNIQUE: Standardized multiplanar fat and water weighted pulse sequences were obtained. COMPARISON: 04/06/2021 CT of the head FINDINGS: There is mild cerebral atrophy with widening of the extra-axial spaces and ventricular dilatation. There are multiple white matter hyperintensities, distributed throughout the deep white matter tracts of the cerebral hemispheres, consistent with mild chronic white matter ischemic changes. There is approximately 4 cm area of restricted diffusion involving the left frontal lobe with drop of signal on ADC map, consistent with acute infarction. Additionally there are multiple small foci of restricted diffusion involving the left frontal, left parietal, left occipital and right occipital regions. Normal bilateral basal ganglia. There is no extra-axial fluid accumulation. Normal sella turcica, pituitary gland, infundibular stalk, optic chiasm and hypothalamus. Normal tectal plate and pineal gland. Normal midbrain, damion and medulla. Normal cerebellum. MRI/Brain without Contrast IMPRESSION: Acute left frontal infarction. Small bilateral infarct foci. Electronically Signed: Chalino Ulloa MD at 14:27 EDT Tel , Service support ,
--- NOTE | 2021-04-07 12:39 | NURSING ---
PT TOLERATED MRI WITHOUT ISSUE. MONITORING AND TRANSPORT BY THIS RN.
--- NOTE | 2021-04-07 14:08 | CASEMGMT ---
Social Work Pt admitted to [facility] with acute Stroke. SW met with pt and introduced self and role of SW. PHQ 9 depression screen completed. Pt with score of 4/27 indicating minimal depression. Pt states that she has a history of depression, takes medications to help and has seen a counselor for years. Pt is not currently seeing her counselor however. SW spoke with pt about stroke and depression and encouraged pt to reach back out to counselor if she finds her depression worsening. Pt expresses understanding. SW discussed with pt discharge plan. Pt stating that she would like to return home, where she lives alone, at time of discharge and take care of herself. Pt has not yet been out of bed since hospital admission. SW will revisit patient tomorrow to discuss discharge plan and determine if she can return home alone once pt has had therapy. Pt is agreeable to this plan. Pt is provided with list of SNF, Rehab Unit and Home Health agencies including quality and resource use data and consistent with the patient's preferred geographic region, medical needs and insurance network. Plan: SW to visit pt tomorrow after she has had therapy to make discharge plan. ZAHIRA Lowe
[2021-04-07 17:01] LABS: Bedside Glucose 161 mg/dL (70-110)
[2021-04-07 18:16] LABS: Bacteria 0 SEEN /hpf (None Seen); Mucous, Urine 0 SEEN /hpf (<or=2+); Red Blood Cells-Urine 0 SEEN /hpf (0-5); Squamous Epithelial Cells - UA 0 SEEN /hpf (5-10); White Blood Cells 0 SEEN /hpf (0-5)
[2021-04-07 18:27] LABS: Color, Urine Yellow (Yellow); Glucose, Dipstick 250 mg/dl (Normal); Ketone-Dipstick 5 mg/dl (Negative); Leukocyte Esterase-Dipstick Negative /ul (Negative); Nitrite-Dipstick Negative (Negative); Occult Blood-Urine Negative /ul (Negative); Protein-Dipstick 30 mg/dl (Negative); Specific Gravity, Urine 1.015 (1.002-1.030); Urine Bilirubin Dipstick Negative (Negative); Urine Clarity Clear (Clear); Urine Urobilinogen Normal (Normal)
[2021-04-08] VITALS (17 sets, daily range): BP systolic 121–166; BP diastolic 64–106; PULSE 88–123; RESP 15–24; TEMP 36.6–37.2; O2SAT 93–99; BMI 25.4
[2021-04-08 00:16] LABS: Bedside Glucose 118 mg/dL (70-110)
[2021-04-08] MEDS: Acetaminophen 325 MG Tablet 650 MG PO ×3 (03:49→16:30)
[2021-04-08 04:05] LABS: Absolute Lymphocyte Count 0.98 X10^3/uL (0.83-4.51); Absolute Neutrophil Count 8.2 X10^3/uL (2.0-7.7); Basophil# 0.07 X10^3/uL; Basophil% 0.7 % (0-1); Hematocrit 24.2 % (37-47); Hemoglobin 7.2 g/dL (12.0-15.0); Lymphocyte # 0.98 X10^3/ul (0.83-4.51); Lymphocyte % 9.5 % (19-41); Mean Corp Hgb Conc 29.8 g/dL (32-36); Mean Corpuscular Hgb 22.9 pg (27.0-32.0); Mean Corpuscular Volume 77.1 fL (81-99); Mean Platelet Vol. 10.1 fl (6.2-12.0); Monocyte# 0.89 X10^3/uL; Monocyte% 8.7 % (0-10); NRBC Flagged by Analyzer 0 % (0-5); Neutrophil # 8.15 X10^3/uL (2.7-7.7); Neutrophil % 79.2 % (47-70); Platelet Count 275 K/mm3 (150-450); RBC Distribution Width CV 18.3 % (11.6-14.6); RBC Distribution Width SD 49.4 fl (35.1-43.9); Red Blood Count 3.14 M/mm3 (4.2-5.4); White Blood Count 10.3 K/mm3 (4.4-11.0)
[2021-04-08 04:22] LABS: ALB/GLOB Ratio 0.9 RATIO (0.9-2.4); AST(SGOT) 22 U/L (15-37); Alanine Aminotransfer ALT/SGPT 17 U/L (13-56); Albumin, Serum 2.9 g/dL (3.2-5.0); Alkaline Phosphatase 90 U/L (45-117); Anion Gap 6 (5-15); BUN 25 mg/dL (7-18); BUN/Creat Ratio 28.7 RATIO (10-20); Calcium,Total 8.3 mg/dL (8.5-10.1); Chloride 108 mmol/L (98-107); Creatinine, Serum 0.87 mg/dL (0.55-1.02); EST Glomerular Filtration Rate 67 mL/min (>60); Est Glom Filt Rate - Afr Amer 81 mL/min (>60); Estimated Creatinine Clearance 53.76 ml/min; Globulin 3.1 g/dL (2.2-4.2); Glucose 133 mg/dL (74-106); Potassium 3.5 mmol/L (3.5-5.1); Sodium Level 139 mmol/L (136-145)
--- NOTE | 2021-04-08 07:52 | PN.CC_ITS ---
Subjective Subjective Patient did okay overnight. No new issues have been reported. Patient did have her MRI and tolerated this well. Patient remains hemodynamically stable on room air. Objective Data Objective Data Vital Signs: Vital Signs Temp Pulse Resp BP Pulse Ox 36.6 C 107 H 16 135/64 H 99 04/08/21 04:00 04/08/21 07:22 04/08/21 07:00 04/08/21 07:00 04/08/21 07:00 Oxygen Flow Rate (L/min) 2 Oxygen Delivery Method Room Air Weight: 79 kg Body Mass Index (BMI) 25.4 Finger Stick Blood Glucose 550 Intake & Output: Intake and Output for Last 24 Hours 04/06/21 04/07/21 04/08/21 23:59 23:59 23:59 Intake Total 3080.53 / 3080.53 2421.5 / 2421.5 1000 / 1000 Output Total 100 / 200 1860 / 1860 200 / 200 Balance 2980.53 / 2880.53 561.5 / 561.5 800 / 800 Lab / Micro Data Result Diagrams: 04/08/21 04:00 04/08/21 04:00 Labs: Laboratory Results - last 24 hr 04/07/21 04/07/21 04/07/21 04:15 11:18 16:40 WBC RBC Hgb Hct MCV MCH MCHC RDW Std Deviation RDW Coeff of [place]var[place] Plt Count MPV Immature Gran % (Auto) Neut % (Auto) Lymph % (Auto) [place] % (Auto) Eos % (Auto) Baso % (Auto) Absolute Neuts (auto) Absolute Lymphs (auto) Nucleated RBC % Sodium Potassium Chloride Carbon Dioxide Anion Gap BUN Creatinine Estim Creat Clear Calc Est GFR (MDRD) Af Amer Est GFR (MDRD) Non-Af BUN/Creatinine Ratio Glucose Calcium Magnesium 1.5 L Iron 25 L TIBC 370 Iron Saturation 6.8 L Total Bilirubin AST ALT Alkaline Phosphatase Total Protein Albumin Globulin Albumin/Globulin Ratio Urine Color Urine Clarity Urine pH Ur Specific [place] Urine Protein Urine Glucose (UA) Urine Ketones Urine Occult Blood Urine Nitrite Urine Bilirubin Urine Urobilinogen Ur Leukocyte Esterase Urine RBC Urine WBC Ur Squamous Epith Cells Urine Bacteria Urine Mucus POC Glucose 382 H 161 H 04/07/21 04/08/21 04/08/21 18:10 00:12 04:00 WBC 10.3 RBC 3.14 L Hgb 7.2 L Hct 24.2 L MCV 77.1 L MCH 22.9 L MCHC 29.8 L RDW Std Deviation 49.4 H RDW Coeff of [place]var[place] 18.3 H Plt Count 275 MPV 10.1 Immature Gran % (Auto) 0.900 Neut % (Auto) 79.2 H Lymph % (Auto) 9.5 L [place] % (Auto) 8.7 Eos % (Auto) 1.0 Baso % (Auto) 0.7 Absolute Neuts (auto) 8.2 H Absolute Lymphs (auto) 0.98 Nucleated RBC % 0 Sodium Potassium Chloride Carbon Dioxide Anion Gap BUN Creatinine Estim Creat Clear Calc Est GFR (MDRD) Af Amer Est GFR (MDRD) Non-Af BUN/Creatinine Ratio Glucose Calcium Magnesium Iron TIBC Iron Saturation Total Bilirubin AST ALT Alkaline Phosphatase Total Protein Albumin Globulin Albumin/Globulin Ratio Urine Color Yellow Urine Clarity Clear Urine pH 6.0 Ur Specific [place] 1.015 Urine Protein 30 H Urine Glucose (UA) 250 H Urine Ketones 5 H Urine Occult Blood Negative Urine Nitrite Negative Urine Bilirubin Negative Urine Urobilinogen Normal Ur Leukocyte Esterase Negative Urine RBC 0 SEEN Urine WBC 0 SEEN Ur Squamous Epith Cells 0 SEEN Urine Bacteria 0 SEEN Urine Mucus 0 SEEN POC Glucose 118 H 04/08/21 04:00 WBC RBC Hgb Hct MCV MCH MCHC RDW Std Deviation RDW Coeff of [place] Plt Count MPV Immature Gran % (Auto) Neut % (Auto) Lymph % (Auto) [place] % (Auto) Eos % (Auto) Baso % (Auto) Absolute Neuts (auto) Absolute Lymphs (auto) Nucleated RBC % Sodium 139 Potassium 3.5 Chloride 108 H Carbon Dioxide 25.0 Anion Gap 6 BUN 25 H Creatinine 0.87 Estim Creat Clear Calc 53.76 Est GFR (MDRD) Af Amer 81 Est GFR (MDRD) Non-Af 67 BUN/Creatinine Ratio 28.7 H Glucose 133 H Calcium 8.3 L Magnesium 2.0 Iron TIBC Iron Saturation Total Bilirubin 0.60 AST 22 ALT 17 Alkaline Phosphatase 90 Total Protein 6.0 L Albumin 2.9 L Globulin 3.1 Albumin/Globulin Ratio 0.9 Urine Color Urine Clarity Urine pH Ur Specific [place] Urine Protein Urine Glucose (UA) Urine Ketones Urine Occult Blood Urine Nitrite Urine Bilirubin Urine Urobilinogen Ur Leukocyte Esterase Urine RBC Urine WBC Ur Squamous Epith Cells Urine Bacteria Urine Mucus POC Glucose Micro: Microbiology 05/12/21 23:24 Stool Stool Occult Blood (BRENDA) - Final Radiography Diagnostic Testing: Radiology Impression Echocardiogram 04/06/21 14:52 Interpretation Summary The study was technically difficult. Left ventricular systolic function is normal. The estimated ejection fraction is 55 %. Septal bounce. Hypermobile atrial septum. Mild (1+) mitral valve insufficiency. Mild tricuspid valve insufficiency. Trivial pulmonic valve insufficiency. Borderline enlarged aortic root. Right ventricular systolic pressure estimated to be 61 mmHg c/w pulmonary hypertension. Transmitral diastolic flow velocities suggest diastolic dysfunction (pseudonormal pattern). Ordering Physician: Shailesh Coles Referring Physician: KELLEY Christensen M.D. Performed By: Adonis Rebollar RCS Brain MRI 04/07/21 12:00 IMPRESSION: Acute left frontal infarction. Small bilateral infarct foci. Electronically Signed: Chalino Ulloa MD at 14:27 EDT Tel , Service support , Physical Exam Const alert and oriented x3 General Appearance: cooperative HEENT normocephalic Eyes PERRL and EOMs intact bilaterally Neck supple, no JVD and no carotid bruits Chest inspection of chest normal Resp normal respiratory effort and clear to auscultation bilaterally Cardio regular rate and no murmurs GI normal to inspection, nondistended, normoactive bowel sounds and soft to palpation Extremity normal capillary refill General Extremity: Negative for edema Right Lower Extremity: knee joint inspection (Erythema and swelling) and palpation (Pain) Left Lower Extremity: knee joint inspection (Erythema and swelling) and palpation (Pain) Skin Skin Narrative: Scattered abrasions noted. No longer has bleeding noted of the left eyebrow lesion. Neuro Neuro Narrative: Slight right arm drift. Right facial droop noted. Slight dysa rthria. [place] Coma Scale: document GCS findings Spontaneous Obeys Commands Oriented 15 Psych cooperative and affect normal Assessment & Plan Assessment/Plan (1) Acute ischemic left MCA stroke: (2) Hyperglycemia due to type 2 diabetes mellitus: (3) Stage 3a chronic kidney disease: (4) Anxiety and depression: (5) Congestive heart failure: (6) Acute on chronic anemia: PLAN: RECOMMENDATIONS: 1. Okay to leave the intensive care unit from my perspective 2. Hemodynamically stable on room air. Will sign off from a critical care perspective 3. Continue therapies per stroke protocol 4. Outpatient work-up for anemia 5. Cardiac optimization IMPRESSIONS: 1. Acute embolic stroke Patient did receive TPA. Patient with good response to TPA with an NIH going from as high as 21 to as low as 6. MRI is suggestive of multiple embolic events. Protocol currently underway for evaluation of risk factors. No seizure activity has been reported. Neurologic status has been stable. Patient does not have any apparent complications to TPA. 2. Acute kidney injury on chronic kidney disease stage IIIa Resolved. Patient may have an element of prerenal etiology secondary to polyuria associated with hyperglycemia. Patient appears to have poor insight into diabetes diagnosis. Good response to volume resuscitation. No further boluses would be required. Blood sugars are better controlled, so osmotic diuresis risk is lower. 3. Acute on chronic anemia Patient with a decrease in hemoglobin. No clinical blood loss at this time. Recheck H&H intermittently and transfuse appropriately. Patient will require outpatient work-up. 4. Pseudohyponatremia Resolved. Patient with admission sodium of 125, but this does correct when glucose is accounted for. No acute intervention is required. 5. Diabetes mellitus/hypertension/anxiety/depression/recent fall Complicates care, management allow for permissive hypertension to some point given TPA. Patient currently n.p.o. secondary to dysphagia. Could consider hemoglobin A1c as an outpatient, but anticipate poor control. Knee x- ray shows no fracture. There does not appear to be any hemarthrosis on physical exam. Visit Charges Inpatient E&M: 24380 Subs Hosp L2
[2021-04-08 07:55] LABS: Bedside Glucose 138 mg/dL (70-110)
[2021-04-08] MEDS: Iron Polysaccharide Complex 150 MG CAPSULE PO (08:34)
[2021-04-08] MEDS: Loratadine 10 MG Tablet PO (08:34)
[2021-04-08] MEDS: Aspirin 81 MG TAB.CHEW PO (08:36)
[2021-04-08] MEDS: Atorvastatin Calcium 40 MG Tablet PO ×2 (08:36→22:20)
--- NOTE | 2021-04-08 09:35 | CASEMGMT ---
Addendum entered by Anastasiya Cross 04/08/21 10:48: Social Work Return call from pt dgt Patito and ANTHONY updated on discharge plan. Patito is agreeable to referral to inpatient rehab and was informed of visiting limitations while there. ZAHIRA Lowe Original Note: Social Work SW spoke with pt to discuss discharge plan. Pt acknowledged that she cannot return home at this time and will need rehabilitation prior to return home. SW discussed discharge options as presented to pt yesterday including Rehab unit, TCU and SNFs. Pt preferred provider is [facility] inpatient Rehab. If Rehab is unable to accept, then pt would prefer TCU. Referral made to [facility] in [place]. SW will await determination. Per pt request, call to pt daughter Patito to update on discharge plan. VM left. Plan: Inpatient Rehab, pending acceptance and insurance authorization ZAHIRA Lowe
--- NOTE | 2021-04-08 10:36 | PN.HOSP_ITS ---
Objective Data Objective Data Vital Signs: Vital Signs Temp Pulse Resp BP Pulse Ox 98.3 F 123 H 16 157/85 H 98 04/08/21 08:45 04/08/21 08:45 04/08/21 08:45 04/08/21 08:45 04/08/21 08:45 Oxygen Flow Rate (L/min) 2 Oxygen Delivery Method Room Air Weight: 79 kg Body Mass Index (BMI) 25.4 Intake & Output: Intake and Output for Last 24 Hours 04/06/21 04/07/21 04/08/21 23:59 23:59 23:59 Intake Total 3080.53 / 3080.53 2421.5 / 2421.5 1000 / 1000 Output Total 100 / 200 1860 / 1860 800 / 800 Balance 2980.53 / 2880.53 561.5 / 561.5 200 / 200 Lab / Micro Data Result Diagrams: 04/08/21 04:00 04/08/21 04:00 Labs: Laboratory Results - last 24 hr 04/07/21 04/07/21 04/07/21 04:15 11:18 16:40 WBC RBC Hgb Hct MCV MCH MCHC RDW Std Deviation RDW Coeff of Alvarado Plt Count MPV Immature Gran % (Auto) Neut % (Auto) Lymph % (Auto) [place] % (Auto) Eos % (Auto) Baso % (Auto) Absolute Neuts (auto) Absolute Lymphs (auto) Nucleated RBC % Sodium Potassium Chloride Carbon Dioxide Anion Gap BUN Creatinine Estim Creat Clear Calc Est GFR (MDRD) Af Amer Est GFR (MDRD) Non-Af BUN/Creatinine Ratio Glucose Calcium Magnesium 1.5 L Iron 25 L TIBC 370 Iron Saturation 6.8 L Total Bilirubin AST ALT Alkaline Phosphatase Total Protein Albumin Globulin Albumin/Globulin Ratio Urine Color Urine Clarity Urine pH Ur Specific [place] Urine Protein Urine Glucose (UA) Urine Ketones Urine Occult Blood Urine Nitrite Urine Bilirubin Urine Urobilinogen Ur Leukocyte Esterase Urine RBC Urine WBC Ur Squamous Epith Cells Urine Bacteria Urine Mucus POC Glucose 382 H 161 H 04/07/21 04/08/21 04/08/21 18:10 00:12 04:00 WBC 10.3 RBC 3.14 L Hgb 7.2 L Hct 24.2 L MCV 77.1 L MCH 22.9 L MCHC 29.8 L RDW Std Deviation 49.4 H RDW Coeff of Alvarado 18.3 H Plt Count 275 MPV 10.1 Immature Gran % (Auto) 0.900 Neut % (Auto) 79.2 H Lymph % (Auto) 9.5 L [place] % (Auto) 8.7 Eos % (Auto) 1.0 Baso % (Auto) 0.7 Absolute Neuts (auto) 8.2 H Absolute Lymphs (auto) 0.98 Nucleated RBC % 0 Sodium Potassium Chloride Carbon Dioxide Anion Gap BUN Creatinine Estim Creat Clear Calc Est GFR (MDRD) Af Amer Est GFR (MDRD) Non-Af BUN/Creatinine Ratio Glucose Calcium Magnesium Iron TIBC Iron Saturation Total Bilirubin AST ALT Alkaline Phosphatase Total Protein Albumin Globulin Albumin/Globulin Ratio Urine Color Yellow Urine Clarity Clear Urine pH 6.0 Ur Specific [place] 1.015 Urine Protein 30 H Urine Glucose (UA) 250 H Urine Ketones 5 H Urine Occult Blood Negative Urine Nitrite Negative Urine Bilirubin Negative Urine Urobilinogen Normal Ur Leukocyte Esterase Negative Urine RBC 0 SEEN Urine WBC 0 SEEN Ur Squamous Epith Cells 0 SEEN Urine Bacteria 0 SEEN Urine Mucus 0 SEEN POC Glucose 118 H 04/08/21 04/08/21 04:00 07:45 WBC RBC Hgb Hct MCV MCH MCHC RDW Std Deviation RDW Coeff of [place]varado Plt Count MPV Immature Gran % (Auto) Neut % (Auto) Lymph % (Auto) [place] % (Auto) Eos % (Auto) Baso % (Auto) Absolute Neuts (auto) Absolute Lymphs (auto) Nucleated RBC % Sodium 139 Potassium 3.5 Chloride 108 H Carbon Dioxide 25.0 Anion Gap 6 BUN 25 H Creatinine 0.87 Estim Creat Clear Calc 53.76 Est GFR (MDRD) Af Amer 81 Est GFR (MDRD) Non-Af 67 BUN/Creatinine Ratio 28.7 H Glucose 133 H Calcium 8.3 L Magnesium 2.0 Iron TIBC Iron Saturation Total Bilirubin 0.60 AST 22 ALT 17 Alkaline Phosphatase 90 Total Protein 6.0 L Albumin 2.9 L Globulin 3.1 Albumin/Globulin Ratio 0.9 Urine Color Urine Clarity Urine pH Ur Specific [place] Urine Protein Urine Glucose (UA) Urine Ketones Urine Occult Blood Urine Nitrite Urine Bilirubin Urine Urobilinogen Ur Leukocyte Esterase Urine RBC Urine WBC Ur Squamous Epith Cells Urine Bacteria Urine Mucus POC Glucose 138 H Micro: Microbiology 04/07/21 23:24 Stool Stool Occult Blood (BRENDA) - Final Radiography Diagnostic Testing: Radiology Impression Echocardiogram 04/06/21 14:52 Interpretation Summary The study was technically difficult. Left ventricular systolic function is normal. The estimated ejection fraction is 55 %. Septal bounce. Hypermobile atrial septum. Mild (1+) mitral valve insufficiency. Mild tricuspid valve insufficiency. Trivial pulmonic valve insufficiency. Borderline enlarged aortic root. Right ventricular systolic pressure estimated to be 61 mmHg c/w pulmonary hypertension. Transmitral diastolic flow velocities suggest diastolic dysfunction (pseudonormal pattern). Ordering Physician: Shailesh Coles Referring Physician: KELLEY Christensen M.D. Performed By: Adonis Rebollar RCS Brain MRI 04/07/21 12:00 IMPRESSION: Acute left frontal infarction. Small bilateral infarct foci. Electronically Signed: Chalino Ulloa MD at 14:27 EDT Tel , Service support , Physical Exam Narrative General: Alert, Oriented x3, slightly lethargic, cooperative, No apparent distress, Well developed HEENT: Atraumatic Oral: Moist Mucosa Neck: Supple Lungs: Clear to auscultation Cardiovascular: HS I+II, regular, no murmurs Abdomen: Bowel Sounds Present, Soft, Non Tender Extremities: No edema Skin: No rashes, No breakdown Neurological: Right facial droop, power in the RUE 3/5, otherwise 4/5 in all the other extremities Psych/Mental Status: Appropriate Assessment & Plan Assessment/Plan (1) Acute on chronic anemia: (2) Acute ischemic left MCA stroke: (3) Hyperglycemia due to type 2 diabetes mellitus: (4) Hypertension: QUALIFIERS: Hypertension type: essential hypertension Qualified Code(s): I10 - Essential (primary) hypertension (5) Diabetes mellitus, type 2: (6) Leukocytosis: (7) Anxiety and depression: (8) Hypokalemia: (9) YRIS (acute kidney injury): (10) Iron deficiency anemia: QUALIFIERS: Iron deficiency anemia type: unspecified iron deficiency Qualified Code(s): D50.9 - Iron deficiency anemia, unspecified PLAN: 1. Acute ischemic stroke status post TPA (04/06/21 11:45 am) MRI of the brain shows acute frontal infarct, small bilateral infarct foci Initial CT of the brain showed chronic involutional changes; CTA of the head and neck showed less than 50% stenosis 2d-ECHO showed EF 55%, RVSP 61 showing pulmonary hypertension HgbA1c 7.9, lipid profile is pending Will consult SOC 2. Acute on chronic anemia, iron deficiency anemia, status post 1 unit blood transfusion Baseline hemoglobin is 9 g/dL, admission hemoglobin was 7.5, FOBT is negative. Iron saturation is 6.8% Will give venofer 250mg x 1 Will check blood work in am 3. YRIS on CKD stage IIIa, creatinine is improved Creatinine today is 0.87. Creatinine on admission was 2.58 Continue on gentle IV fluid,m repeat labs 4. Hyperglycemia in a known type II DM patient, on Metformin BS are controlled, HgbA1c 7.9, on Lantus 10 units BID Will resume Metformin and continue with blood glucose checks and ISS 5. Leukocytosis, likely reactive, resolved WBC is 24.3 on admission 6. Hyponatremia, resolved 7. Hypokalemia, resolved, recheck in a.m. 8. Lactic acidosis likely secondary to #1 and 2 9. Anxiety/depression, stable, will resume Ativan, Remeron, trazodone Visit Charges Inpatient E&M: 65271 Subs Hosp L2
[2021-04-08] MEDS: Insulin Lispro 100 UNIT/ML INSULN.PEN SC ×2 (11:12→16:30)
[2021-04-08] MEDS: LORazepam 0.5 MG Tablet PO (11:12)
[2021-04-08 11:21] LABS: Bedside Glucose 235 mg/dL (70-110)
[2021-04-08 11:32] LABS: Cholesterol 117 mg/dL (200); High Density Lipoprotein 37 mg/dL; Triglycerides 141 mg/dL; Very Low Density Lipoprotein 28 mg/dL (5-40)
--- NOTE | 2021-04-08 13:35 | TELEMED_ITS ---
SOC Telemed has confirmed receipt of a request for visit. This document confirms receipt of the order initiating the consult. To find the results of the consultation, please view the patient's reports for the scanned Telemed Consult.
--- NOTE | 2021-04-08 14:19 | CASEMGMT ---
Social Work Return call from [facility] Inpatient Rehab and they are able to accept. Precert has been started. Pt made aware and agreeable. Plan: Inpatient Rehab, pending insurance ZAHIRA Blanton
[2021-04-08] MEDS: metFORMIN HCl 500 MG Tablet PO (16:29)
[2021-04-08 16:35] LABS: Bedside Glucose 247 mg/dL (70-110)
[2021-04-08] MEDS: traMADol 50 MG Tablet PO (17:12)
[2021-04-08] MEDS: Mirtazapine 15 MG Tablet PO (22:20)
[2021-04-08] MEDS: traZODone 100 MG Tablet PO (22:20)
[2021-04-08] MEDS: LORazepam 1 MG Tablet PO (22:20)
[2021-04-08 22:35] LABS: Bedside Glucose 136 mg/dL (70-110)
[2021-04-09] VITALS: PULSE 110
[2021-04-09 01:00] VITALS: BP 100/66; PULSE 110; RESP 18; TEMP 36.4; O2SAT 95
[2021-04-09 03:47] LABS: Absolute Lymphocyte Count 1.02 X10^3/uL (0.83-4.51); Absolute Neutrophil Count 8.7 X10^3/uL (2.0-7.7); Basophil# 0.08 X10^3/uL; Basophil% 0.7 % (0-1); Eosinophil# 0.14 X10^3/uL; Eosinophils% 1.3 % (0-5); Hematocrit 27.1 % (37-47); Hemoglobin 7.9 g/dL (12.0-15.0); Lymphocyte # 1.02 X10^3/ul (0.83-4.51); Lymphocyte % 9.3 % (19-41); Mean Corp Hgb Conc 29.2 g/dL (32-36); Mean Corpuscular Hgb 22.7 pg (27.0-32.0); Mean Corpuscular Volume 77.9 fL (81-99); Mean Platelet Vol. 9.4 fl (6.2-12.0); Monocyte% 8.2 % (0-10); NRBC Flagged by Analyzer 0.3 % (0-5); Neutrophil # 8.72 X10^3/uL (2.7-7.7); Neutrophil % 79.9 % (47-70); Platelet Count 287 K/mm3 (150-450); RBC Distribution Width CV 18.6 % (11.6-14.6); RBC Distribution Width SD 51.4 fl (35.1-43.9); Red Blood Count 3.48 M/mm3 (4.2-5.4); White Blood Count 10.9 K/mm3 (4.4-11.0)
[2021-04-09 04:00] VITALS: PULSE 107
[2021-04-09 04:01] LABS: Anion Gap 6 (5-15); BUN 14 mg/dL (7-18); BUN/Creat Ratio 16.5 RATIO (10-20); Calcium,Total 8.6 mg/dL (8.5-10.1); Chloride 104 mmol/L (98-107); Creatinine, Serum 0.85 mg/dL (0.55-1.02); EST Glomerular Filtration Rate 69 mL/min (>60); Est Glom Filt Rate - Afr Amer 83 mL/min (>60); Estimated Creatinine Clearance 55.02 ml/min; Glucose 127 mg/dL (74-106); Potassium 3.6 mmol/L (3.5-5.1); Sodium Level 138 mmol/L (136-145)
[2021-04-09 06:00] VITALS: BP 156/81; PULSE 115; RESP 17; TEMP 36.5; O2SAT 96
[2021-04-09 07:08] VITALS: O2SAT 94
[2021-04-09] MEDS: Iron Polysaccharide Complex 150 MG CAPSULE PO (09:09)
[2021-04-09] MEDS: Aspirin 81 MG TAB.CHEW PO (09:09)
[2021-04-09] MEDS: metFORMIN HCl 500 MG Tablet PO (09:09)
[2021-04-09] MEDS: Lisinopril 20 MG Tablet PO (09:09)
[2021-04-09] MEDS: DULoxetine Hcl 60 MG Capsule PO (09:09)
[2021-04-09] MEDS: Loratadine 10 MG Tablet PO (09:10)
--- NOTE | 2021-04-09 09:15 | PCM.DC ---
Discharge Instructions Diet Discharge Diet: Low fat / Low cholesterol, 2000 mg Sodium Diet and Carb Control Diet Activity Discharge Activity: Return to Normal Activity Follow Up Care Test Results: Test results from this visit will be discussed in further detail at your follow-up appointment, if applicable. Discharge Plan Admission Admit Date/Time: 04/06/21 13:39 Primary Reason for Your Visit: Acute CVA Attending Provider: Mary Peralta Primary Care Provider: Erick Christensen III Consulting Providers: Javad Bennett ; Garcia Murphy ; Genny Chun [facility] Discharge Orders/Prescriptions Prescriptions: New atorvastatin 40 mg Tablet 40 mg PO QHS Qty: 0 RF: 0 aspirin 81 mg Tablet,Chewable 81 mg PO DAILY@0800 Qty: 0 RF: 0 insulin lispro [Humalog KwikPen Insulin] 100 unit/mL Insulin Pen See Protocol unit subcut ACHS Qty: 0 RF: 0 Lantus Solostar U-100 Insulin 100 unit/mL (3 mL) Insulin Pen 10 units subcut BID Qty: 0 RF: 0 docusate sodium [Colace] 100 mg capsule 100 mg PO BID PRN PRN (Reason: constipation) Qty: 60 RF: 0 Continued trazodone 100 MG tablet 100 mg PO QHS RF: 0 duloxetine 60 MG capsule,delayed release(DR/EC) 60 mg PO DAILY RF: 0 potassium chloride 20 MEQ tablet 20 meq PO DAILY RF: 0 cetirizine 10 MG capsule 10 mg PO DAILY RF: 0 mirtazapine 15 MG tablet 15 mg PO QHS RF: 0 lisinopril 20 MG tablet 20 mg PO DAILY Qty: 90 RF: 0 metformin 500 MG tablet 500 mg PO BID Qty: 120 RF: 0 lorazepam 1 mg tablet 0.5 mg PO BID RF: 0 lorazepam 1 mg tablet 1 mg PO QHS RF: 0 Changed polysaccharide iron complex 150 MG capsule 150 mg PO BIDCM Qty: 0 RF: 0 pantoprazole 40 MG tablet 40 mg PO BIDCM Qty: 0 RF: 0 Discontinued guaifenesin 600 MG tablet 600 mg PO BID RF: 0 celecoxib 100 mg capsule 100 mg PO DAILY RF: 0 Referrals / Follow Up: Erick Christensen III, MD [Primary Care Provider] - Disposition Disposition (needs filled in before D/C Order can be placed): Inpatient rehab unit/facility
--- NOTE | 2021-04-09 09:16 | PCM.DC.SUM ---
Providers Date of Admission: 04/06/21 Primary Care Physician: Dr. Erick Christensen III, MD Consultations 04/06/21 11:29 Consult: Website Optimization Strategist / Pulmonary Medicine Routine Consulting Provider: Pulmonary Sita Reason for Consult: stroke for alteplase EMERGENT Consult: Yes Notified: Yes Date Notified:: 04/06/21 Time Notified: 11:29 Method of Notification: Provider Initiated Comments:: If admitted, Hospitalist will consult Website Optimization Strategist 04/06/21 14:52 Consult: Website Optimization Strategist / Pulmonary Medicine Routine Consulting Provider: Pulmonary Judyoster Reason for Consult: Acute stroke post TPA EMERGENT Consult: No MD Notified: Yes Date Notified:: 04/06/21 Time Notified: 13:29 Method of Notification: Verbal Reason For Visit: ACUTE STROKE Diagnosis Discharge Diagnosis (1) Acute on chronic anemia: Status: Chronic Code(s): D64.9 - Anemia, unspecified (2) Acute ischemic left MCA stroke: Status: Acute Code(s): I63.512 - Cerebral infarction due to unspecified occlusion or stenosis of left middle cerebral artery (3) Hyperglycemia due to type 2 diabetes mellitus: Status: Acute Code(s): E11.65 - Type 2 diabetes mellitus with hyperglycemia (4) Hypertension: Status: Chronic Code(s): I10 - Essential (primary) hypertension Qualifiers: Hypertension type: essential hypertension Qualified Code(s): I10 - Essential (primary) hypertension (5) Diabetes mellitus, type 2: Status: Chronic Code(s): E11.9 - Type 2 diabetes mellitus without complications (6) Leukocytosis: Status: Resolved Code(s): D72.829 - Elevated white blood cell count, unspecified (7) Anxiety and depression: Status: Chronic Code(s): F41.9 - Anxiety disorder, unspecified; F32.9 - Major depressive disorder, single episode, unspecified (8) Hypokalemia: Status: Resolved Code(s): E87.6 - Hypokalemia (9) YRIS (acute kidney injury): Status: Acute Code(s): N17.9 - Acute kidney failure, unspecified (10) Iron deficiency anemia: Status: Chronic Code(s): D50.9 - Iron deficiency anemia, unspecified Qualifiers: Iron deficiency anemia type: unspecified iron deficiency Qualified Code(s): D50.9 - Iron deficiency anemia, unspecified Medications at Discharge Home Medications duloxetine 60 mg PO DAILY 11/23/18 trazodone 50 mg PO QHS PRN 11/23/18 potassium chloride 20 meq PO DAILY 04/11/20 mirtazapine 30 mg PO QHS@2000 08/30/20 aspirin 81 mg PO DAILY@0800 04/09/21 atorvastatin 40 mg PO QHS 04/09/21 docusate sodium [Colace] 100 mg PO BID PRN PRN #60 cap 04/09/21 insulin glargine [Lantus Solostar U-100 Insulin] 10 units SUBCUT BID 04/09/21 insulin lispro [Humalog KwikPen Insulin] See Protocol SUBCUT ACHS 04/09/21 lisinopril 20 mg PO DAILY 04/09/21 metformin 500 mg PO BID 04/09/21 pantoprazole 40 mg PO BIDCM #0 tab 04/09/21 polysaccharide iron complex 150 mg PO BIDCM #0 cap 04/09/21 Hospital Course Operations None Procedures 2-D Echocardiogram and - (s/p TPA on 04/06/21) Summary of Care Provided Minutes Spent on Discharge: 50 Hospital Course: 80-year-old female with past medical history of hypertension, type II DM, anxiety/depression who presented after a fall, with slurred speech and right facial droop. Patient was in her usual state of health and had a fall around 0830 HRS. She was noted to have a small forehead abrasion. Subsequently around 1045HRS, patient went to the bathroom and her daughter heard a sound. When she went to the bathroom, patient was lethargic, having garbled speech with right facial droop and could not move her right side. Admitting NIHSS score was 19. [facility] teleneurology were consulted and recommended TPA. She received TPA on 04/06/21. There was no large vessel occlusion on CTA of the head. CT head was unremarkable. CTA of the head and neck showed less than 50% stenosis. She was subsequently managed in the ICU. Patient had dramatic improvement in her right-sided weakness. She was able to move her right side of the body. She was followed up in 24 hours with an MRI brain that showed acute frontal infarct, small bilateral infarct foci, without hemorrhagic conversion. Other work-up including 2D echo showed an EF of 55%, RVSP 61 showing pulmonary hypertension, septal bounce was present, stage II diastolic dysfunction present, hypermobile atrial septum was present. Patient apparently has history of PFO noted in March 2020. Discussed with cardiology, the 2D echo during this hospital stay was not done with a bubble study because of the known PFO. Discussed again with [facility] neurology, recommended adding Plavix and following up in the outpatient for SHANA . In this hospital stay, patient's HbA1c was 7.9, and she was started on Lantus 10 units BID. She was also found to have severe anemia. Work-up was suggestive of iron deficiency anemia. Stool for occult blood was negative. She received Venofer x 1. She was also managed with YRIS which resolved with IV fluids. WBC on admission was 24.3 and there was no signs of sepsis. WBC count resolved during the hospital stay. Patient got approval for rehab. I discussed with Dr. Rodarte, all the new updates from [facility] neurology and cardiology. Patient was seen by PT and OT and skilled for discharge to acute rehab. Physical Exam Narrative General: Alert, Oriented x3, cooperative, No apparent distress, Well developed HEENT: Atraumatic Oral: Moist Mucosa Neck: Supple Lungs: Clear to auscultation Cardiovascular: HS I+II, regular, no murmurs Abdomen: Bowel Sounds Present, Soft, Non Tender Extremities: No edema Skin: No rashes, No breakdown Neurological: Right facial droop, power in the RUE 3/5, otherwise 4/5 in all the other extremities Psych/Mental Status: Appropriate ABG / Lab / Microbiology Data Result Diagrams: 04/09/21 03:35 04/09/21 03:35 Laboratory: Laboratory Results - last 24 hr 04/08/21 04/08/21 04/08/21 04:00 11:10 16:28 WBC RBC Hgb Hct MCV MCH MCHC RDW Std Deviation RDW Coeff of Alvarado Plt Count MPV Immature Gran % (Auto) Neut % (Auto) Lymph % (Auto) Glades % (Auto) Eos % (Auto) Baso % (Auto) Absolute Neuts (auto) Absolute Lymphs (auto) Nucleated RBC % Sodium Potassium Chloride Carbon Dioxide Anion Gap BUN Creatinine Estim Creat Clear Calc Est GFR (MDRD) Af Amer Est GFR (MDRD) Non-Af BUN/Creatinine Ratio Glucose Calcium Triglycerides 141 Cholesterol 117 LDL Cholesterol 52 VLDL Cholesterol 28 HDL Cholesterol 37 L POC Glucose 235 H 247 H 04/08/21 04/09/21 04/09/21 22:19 03:35 03:35 WBC 10.9 RBC 3.48 L Hgb 7.9 L Hct 27.1 L MCV 77.9 L MCH 22.7 L MCHC 29.2 L RDW Std Deviation 51.4 H RDW Coeff of Alvarado 18.6 H Plt Count 287 MPV 9.4 Immature Gran % (Auto) 0.600 Neut % (Auto) 79.9 H Lymph % (Auto) 9.3 L Glades % (Auto) 8.2 Eos % (Auto) 1.3 Baso % (Auto) 0.7 Absolute Neuts (auto) 8.7 H Absolute Lymphs (auto) 1.02 Nucleated RBC % 0.3 Sodium 138 Potassium 3.6 Chloride 104 Carbon Dioxide 28.0 Anion Gap 6 BUN 14 Creatinine 0.85 Estim Creat Clear Calc 55.02 Est GFR (MDRD) Af Amer 83 Est GFR (MDRD) Non-Af 69 BUN/Creatinine Ratio 16.5 Glucose 127 H Calcium 8.6 Triglycerides Cholesterol LDL Cholesterol VLDL Cholesterol HDL Cholesterol POC Glucose 136 H Microbiology: Microbiology 04/06/21 14:00 Blood Culture - Preliminary Blood Culture (Wb) - Anticubital Left No growth in 48 hours. 04/06/21 13:15 Blood Culture - Preliminary Blood Culture (Wb) - Anticubital Right No growth in 48 hours. 04/07/21 18:10 Urine Culture - Preliminary Urine, Random Culture exhibits no growth. Microbiology 04/06/21 14:00 Blood Culture (Wb) - Anticubital Left Blood Culture - Preliminary No growth in 48 hours. 04/06/21 13:15 Blood Culture (Wb) - Anticubital Right Blood Culture - Preliminary No growth in 48 hours. 04/07/21 18:10 Urine, Random Urine Culture - Preliminary Culture exhibits no growth. 04/07/21 23:24 Stool Stool Occult Blood (BRENDA) - Final D/C Instructions Discharge Diet: Low fat / Low cholesterol, 2000 mg Sodium Diet and Carb Control Diet Discharge Activity: Return to Normal Activity Meaningful Use Info Meaningful Use Diagnoses (Choose all that apply): Ischemic CVA CVA Therapy Assessed for PT,OT and/or ST?: Yes Ischemic Stroke Antithrombotic order at d/c?: Yes Dx of Atrial fib/flutter?: No Anticoagulant at discharge?: No Reason anticoagulant not ordered: Treatment not Indicated Statins at discharge?: Yes Primary Dx Acute Ischemic CVA?: Yes IV tPA ordered during stay?: Yes Discharge Plan Admission Admit Date/Time: 04/06/21 13:39 Primary Reason for Your Visit: Acute CVA Attending Provider: Mary Peralta Primary Care Provider: Erick Christensen III Consulting Providers: Javad Bennett ; Garcia Murphy ; Genny Chun EMERGENCY MEDICAL TECHNICIAN/DRIVER Discharge Orders/Prescriptions Prescriptions: New docusate sodium [Colace] 100 mg capsule 100 mg PO BID PRN PRN (Reason: constipation) Qty: 60 RF: 0 Continued trazodone 100 MG tablet 50 mg PO QHS PRN (Reason: Insomnia) RF: 0 duloxetine 60 MG capsule,delayed release(DR/EC) 60 mg PO DAILY RF: 0 potassium chloride 20 MEQ tablet 20 meq PO DAILY RF: 0 mirtazapine 15 MG tablet 30 mg PO QHS@2000 RF: 0 Changed polysaccharide iron complex 150 MG capsule 150 mg PO BIDCM Qty: 0 RF: 0 pantoprazole 40 MG tablet 40 mg PO BIDCM Qty: 0 RF: 0 Discontinued guaifenesin 600 MG tablet 600 mg PO BID RF: 0 celecoxib 100 mg capsule 100 mg PO DAILY RF: 0 No Action atorvastatin 40 mg tablet 40 mg PO QHS RF: 0 metformin 500 MG tablet 500 mg PO BID RF: 0 lisinopril 20 MG tablet 20 mg PO DAILY RF: 0 aspirin 81 mg tablet,chewable 81 mg PO DAILY@0800 RF: 0 insulin lispro [Humalog KwikPen Insulin] 100 unit/mL insulin pen See Protocol unit subcut ACHS RF: 0 Lantus Solostar U-100 Insulin 100 unit/mL (3 mL) insulin pen 10 units subcut BID RF: 0 Referrals / Follow Up: Erick Christensen III, MD [Primary Care Provider] - Disposition Disposition (needs filled in before D/C Order can be placed): Inpatient rehab unit/facility
[2021-04-09 09:17] VITALS: BP 168/111; PULSE 113; RESP 20; TEMP 37.7; O2SAT 98
[2021-04-09 09:31] LABS: Bedside Glucose 134 mg/dL (70-110)
--- NOTE | 2021-04-09 09:38 | CASEMGMT ---
Social Work Return call from Inpatient Rehab and pt has been approved by insurance and can be admitted today prior to 1100 or on Monday. SW informed physician who states pt is ready for discharge today. Pt notified and is agreeable to discharge to Rehab Unit. Phone call to pt daughter Patito and updated on discharge plan, she is also appreciative of transfer to . Nursing updated. Phone call to Madyson in Inpatient Rehab and notified pt would be on unit by 1100. ZAHIRA Lowe
--- NOTE | 2021-04-09 09:43 | NURSING ---
report called to healthcare customer service
--- NOTE | 2021-04-09 10:01 | CASEMGMT ---
JOSE MOONEY NOTE: Pt qualifies for a Palliative referral per the [facility] palliative screening tool at this time. Pt is discharging to [facility] RU unit today. Anastasiya CRUZ, made aware and notified RU Edilia CRUZ, that pt meets criteria for palliative referral, but that referral has not been made. Kai SIMPSON RN CM
== END 2021-04-09 10:19 | DRG 62 ==
LOC: ED 13:01 → ICU 13:53
PROVIDERS: Internal Medicine Critical Care Medicine; Admitting Provider Hospitalist; Emergency Provider Emergency Medicine; PCP Family Medicine; Visit Provider Internal Medicine
DX: I63.412 Cerebral infarction due to embolism of left middle cerebral artery (principal); I13.0 Hypertensive heart and chronic kidney disease with heart failure and stage 1 through stage 4 chronic kidney disease, or unspecified chronic kidney disease; N17.9 Acute kidney failure, unspecified; E87.1 Hypo-osmolality and hyponatremia; Q21.1 Atrial septal defect; E11.22 Type 2 diabetes mellitus with diabetic chronic kidney disease; E11.65 Type 2 diabetes mellitus with hyperglycemia; N18.31 Chronic kidney disease, stage 3a; S00.81XA Abrasion of other part of head, initial encounter; I50.9 Heart failure, unspecified; R29.810 Facial weakness; R47.1 Dysarthria and anarthria; F32.9 Major depressive disorder, single episode, unspecified; F41.9 Anxiety disorder, unspecified; R29.719 NIHSS score 19; E86.0 Dehydration; D50.9 Iron deficiency anemia, unspecified; M21.371 Foot drop, right foot; R53.1 Weakness; R13.10 Dysphagia, unspecified; R47.01 Aphasia; E87.6 Hypokalemia; Z79.899 Other long term (current) drug therapy; Z79.84 Long term (current) use of oral hypoglycemic drugs; W19.XXXA Unspecified fall, initial encounter; Y93.89 Activity, other specified; Y92.009 Unspecified place in unspecified non-institutional (private) residence as the place of occurrence of the external cause; Y99.9 Unspecified external cause status
CPT/HCPCS: 70450; 70496; 70498; 70551; 71045; 73560; 80048; 80053; 80061; 80076; 81001; 82274; 82550; 82962; 83036; 83540; 83550; 83605; 83735; 84100; 84484; 85014; 85018; 85025; 85610; 85730; 86850; 86900; 86901; 86920; 86922; 87040; 87086; 92526; 93005; 93306; 97162; 97167; 97530; 99285; J2997; J7030; J7050; P9016; Q9957; Q9967; A4216; J2916; J3490

== ENCOUNTER 2021-04-09 10:00 | Inpatient (IN) | payer MEDICARE, SELFPAY ==
[2021-04-08 23:21] VITALS: BMI 25.4
[2021-04-09 11:23] VITALS: BP 129/75; PULSE 117; RESP 18; TEMP 37.1; O2SAT 98; BMI 26.2
[2021-04-09 12:01] LABS: Bedside Glucose 199 mg/dL (70-110)
--- NOTE | 2021-04-09 13:08 | VDLE_ITS ---
Reason For Study: swelling RIGHT LEFT GSV is normal. GSV is normal. CFV is compressible, spontaneous, phasic, CFV is compressible, spontaneous, phasic, competent and demonstrates normal competent, and demonstrates normal augmentation. augmentation. FV is compressible, spontaneous, phasic, FV is compressible, spontaneous, phasic, competent and demonstrates normal competent and demonstrates normal augmentation. augmentation. POP V is compressible, spontaneous, phasic, POP V is compressible, spontaneous, phasic, competent and demonstrates normal competent and demonstrates normal augmentation. augmentation. T/P Trunk is compressible. T/P Trunk is compressible. PTV is compressible. PTV is compressible. RT PerV is compressible. LT PerV is compressible. Procedure Exam performed portable in patient room. A preliminary report was called and/or faxed to . VL/Venous Duplex US - Kvng Extrem Interpretation Summary Deep veins of the lower extremities are bilaterally patent and compressible seg mentally. There is no evidence of deep vein thrombosis on either side. Valvular competence appears in tact within the proximal deep venous systems bilaterally. The great saphenous veins appear bila terally patent and compressible segmentally. Ordering Physician: Leandra Rodarte Referring Physician: Erick Christensen Performed By: Delphine Chaidez, SUSHILCS, RVT
[2021-04-09] MEDS: Insulin Lispro 100 UNIT/ML INSULN.PEN SC ×2 (13:55→17:56)
[2021-04-09 15:05] VITALS: O2SAT 96
[2021-04-09 18:45] LABS: Bedside Glucose 176 mg/dL (70-110)
[2021-04-09] MEDS: Iron Polysaccharide Complex 150 MG CAPSULE PO (18:56)
[2021-04-09] MEDS: Pantoprazole Sodium 40 MG Tablet PO (18:56)
[2021-04-09 19:18] VITALS: BP 119/72; PULSE 118; RESP 16; TEMP 36.3; O2SAT 98
[2021-04-09] MEDS: metFORMIN HCl 500 MG Tablet PO (21:02)
[2021-04-09] MEDS: Mirtazapine 30 MG Tablet PO (21:03)
[2021-04-09] MEDS: Atorvastatin Calcium 40 MG Tablet PO (21:03)
[2021-04-09 21:15] LABS: Bedside Glucose 126 mg/dL (70-110)
--- NOTE | 2021-04-09 22:03 | NURSING ---
PT HAS NOT VOIDED YET THIS SHIFT. BLADDER SCANNED FOR 24 ML URINE. PT ENCOURAGED STRONGLY NEED TO DRINK LIQUIDS. PT AGREES TO DRINK 240 ML NECTAR THICK WATER.
[2021-04-10] VITALS (8 sets, daily range): BP systolic 106–163; BP diastolic 75–99; PULSE 100–120; RESP 12–16; TEMP 37.1–37.2; O2SAT 94–100; BMI 26.2
[2021-04-10] MEDS: Enoxaparin 40 MG/0.4 ML Syringe SC (05:32)
--- NOTE | 2021-04-10 05:45 | NURSING ---
PT WITH INCREASED AMT OF COUGHING THIS AM. PT STATES THIS IS HER NORMAL AMT OF COUGHING. COUGHING IS UNPRODUCTIVE AND PT DENIES SOB. VITAL SIGNS WITH ELEVATED BP AND PULSE. LUNG SOUNDS ARE WITH CRACKLES IN LOWER AND MIDDLE LOBES BILATERAL POSTERIORLY. OCC AUDIBLE WHEEZE WITHOUT STETHOSCOPE USE. PT CALM AND COOPERATIVE.
--- NOTE | 2021-04-10 05:58 | NURSING ---
DR XAVIER NOTIFIED OF PT'S CRACKLES 2/3 UP BILAT POSTERIORLY AND INCREASED BP AND PULSE THIS AM. INFORMED THAT PT'S RESP ARE 12 AND PT DENIES SOB. ORDERS GIVEN.
--- NOTE | 2021-04-10 06:00 | RAD_ITS ---
STUDY: X-RAY CHEST REASON FOR EXAM: Female, 80 years old. CRACKLES 2/3 UP BILAT TECHNIQUE: Single AP portable view of the chest. COMPARISON: 04/06/2021 FINDINGS: The lungs are clear and expanded. Elevated right hemidiaphragm which is unchanged. Normal size heart. Normal mediastinum and patricia. Normal visualized pulmonary arteries. Normal visualized aortic arch and descending thoracic aorta. There is a dextroscoliosis of the thoracic spine. Normal visualized ribs, clavicles, and shoulders. There is no demonstrated abnormality of the visualized soft tissue structures of the upper abdomen. RAD/Chest 1 View (Portable) IMPRESSION: No active disease. Electronically Signed: Yosvany Watkins MD at 6:38 EDT Tel , Service support ,
[2021-04-10 06:06] LABS: Bedside Glucose 125 mg/dL (70-110)
--- NOTE | 2021-04-10 06:26 | NURSING ---
DR XAVIER HAS REVIEWED PT'S STAT PORT CXR AND IS TO BEDSIDE TO SEE PT. INFORMED OF PT'S MOST RECENT SET OF VITAL SIGNS. ORDERS GIVEN.
[2021-04-10] MEDS: hydrALAZINE 25 MG Tablet PO (06:42)
[2021-04-10] MEDS: Clopidogrel Bisulfate 75 MG Tablet PO (09:06)
[2021-04-10] MEDS: Potassium Chloride Oral Tablet 20 MEQ PO (09:06)
[2021-04-10] MEDS: Lisinopril 20 MG Tablet PO (09:06)
[2021-04-10] MEDS: Pantoprazole Sodium 40 MG Tablet PO ×2 (09:07→16:52)
[2021-04-10] MEDS: DULoxetine Hcl 60 MG Capsule PO (09:07)
[2021-04-10] MEDS: metFORMIN HCl 500 MG Tablet PO ×2 (09:09→16:51)
[2021-04-10] MEDS: Aspirin 81 MG TAB.CHEW PO (09:09)
[2021-04-10] MEDS: Iron Polysaccharide Complex 150 MG CAPSULE PO ×2 (09:10→16:51)
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
--- NOTE | 2021-04-10 09:54 | PCM.RU.PYE ---
Admission Information Primary Diagnosis:: Disability due to ischemic CVA. Status Changes from Prescreening?: No changes Identified Actual Problem List:: Cognitve Impr/Memory Loss, Bladder Incontinence, Mobility Impaired, Self Care Deficit, Ineffective Communication, Know.Dfct/Disease Process, Know.Dfct of Medicaitons, BP, Hypertension and Alteration-Leisure Activ. Potential Problem List:: DVT, Bleeding, Infection, UTI, Aspiration, Falls, Skin Integrity and Depression Risk of Complications DVT: LMWH and JACOB Hose Bleeding: Monitor Lab Values, Nursing to Teach Precautions for anti-coagulation therapy., Wound, if applicable, to be assessed every shift. and Stroke patients assessed for lethargy or change in status. Infection: Clinical Staff to Monitor for S/S of infection: and S/S of infection include fever, redness, warmth, etc. Urinary Tract Infection: Monitor for frequency, burning, discomfort, or incontinence. and Nursing will obtain urine sample for urinalysis and C&S when ordered. Aspiration: Clinical staff will monitor for coughing, drooling, congestion., Speech will evaluate swallowing and dsyphasia. and Nursing will monitor patient swallowing during meals. Falls: Patient will be evaluated for Fall Precautions and Patient will be placed on Fall Precautions as indicated per protocol. Skin Breakdown: Nursing will assess skin daily using assessment tool. and Nursing will place on Skin Breakdown Precautions as indicated. Pain: Clinical staff will assess patient's pain level per protocol., Medications will be given, if needed, and the pain level reassessed. and Other methods: Massage, distraction, decrease stimulus, etc. used PRN. Plan of Care Patient requires physician specializing in physical medicine and rehab oversight to provide close medical supervision of rehab issues including: Pain Management, Sleep Problems, Bowel and Bladder, Medical and co-morbidity Management, DVT prophylaxis, Rehabilitation Leadership and Coordination of treatment team Patient needs Physical Therapy: For a minimum of 1 hour and At least 5 out of 7 days Patient needs Physical Therapy to improve:: Mobility, Strengthening, Transfers, Stretching, ROM, Endurance, Stairs, Gait and Balance Patient needs Occupational Therapy: For a minimum of 1 hour and At least 5 out of 7 days Patient needs Occupational Therapy to improve ADL's incl.: Eating, Grooming, Bathing, Dressing, Toileting, Toilet transfers, Community Reintegration, Higher functioning activities, Household tasks, Adaptive Equipment, Splinting and Other activities as determined Patient requires speech therapy: For a minimum of 1 hour and At least 5 out of 7 days Patient requires speech therapy for: Swallowing, Cognition, Language Skills and Compensatory Strategies Patient requires 24/ Rehabilitation Nursing for: Pain Issues, Identifying and preventing risk factors, Monitoring and reporting current medical conditions, Assisting with ambulation, transfer, and all ADL's, Teaching patients about disease process and medications, Family teaching, Providing safe environment, Bowel and Bladder Issues, Skin integrity and Medication Management Patient needs Packing And Final Assembly Supervisor/ Case Management for: Discharge Planning, Arranging Home Equipment or Services and Family Interventions Patient needs Dietary and Nutrition Services for: Adequate Nutrition, Nutritional Supplements and Nutritional Education Goals Patient will remain: free from falls and or injury at time of discharge. Patient will perform bed mobility at: MOD I level of assist. Patient will complete transfers from bed to chair at: MOD I level of assist. Patient will ambulate: with LRD and - (300 feet with least restrictive device at mod I) Patient will complete upper body dressing at: MOD I level of assist. Patient will complete lower body dressing at: MOD I level of assist. Patient will complete toileting at: MOD I level of assist. Patient will perform bathing at: MOD I level of assist. Patient will complete grooming at: MOD I level of assist. Patient will complete home management skills at: MOD I level of assist. Patient will achieve: - (3 steps with 2 handrails at standby assist) Patient will have pain level of: of 3 or less Patient's skin will: remain intact Patient will receive: adequate nutrition. Discharge Planning Pt Prognosis for Sig. Practical Improv. w/in Reasonable Time: Good Estimated Length of stay (days): 21 Anticipated D/C Destination: Home with Home Health Was Preadmission Assessment Accurate?: Yes
[2021-04-10 11:21] LABS: Bedside Glucose 190 mg/dL (70-110)
[2021-04-10] MEDS: Insulin Lispro 100 UNIT/ML INSULN.PEN SC (12:41)
[2021-04-10 16:51] LABS: Bedside Glucose 99 mg/dL (70-110)
[2021-04-10] MEDS: Acetaminophen 325 MG Tablet 650 MG PO (16:51)
[2021-04-10] MEDS: 0.9% Saline Lock 10 ML Syringe IV ×2 (18:38→20:45)
[2021-04-10] MEDS: Mirtazapine 30 MG Tablet PO (20:46)
[2021-04-10] MEDS: Atorvastatin Calcium 40 MG Tablet PO (20:46)
[2021-04-10] MEDS: traZODone 50 MG Tablet PO (20:47)
[2021-04-10 21:11] LABS: Bedside Glucose 113 mg/dL (70-110)
[2021-04-11] MEDS: Acetaminophen 325 MG Tablet 650 MG PO ×3 (04:31→21:02)
[2021-04-11] MEDS: Enoxaparin 40 MG/0.4 ML Syringe SC (05:06)
[2021-04-11 06:51] LABS: Bedside Glucose 135 mg/dL (70-110)
[2021-04-11] MEDS: Aspirin 81 MG TAB.CHEW PO (08:03)
[2021-04-11] MEDS: Pantoprazole Sodium 40 MG Tablet PO ×2 (08:03→15:01)
[2021-04-11] MEDS: Potassium Chloride Oral Tablet 20 MEQ PO (08:03)
[2021-04-11] MEDS: DULoxetine Hcl 60 MG Capsule PO (08:03)
[2021-04-11] MEDS: Lisinopril 20 MG Tablet PO (08:03)
[2021-04-11] MEDS: metFORMIN HCl 500 MG Tablet PO ×2 (08:03→16:58)
[2021-04-11] MEDS: Iron Polysaccharide Complex 150 MG CAPSULE PO ×2 (08:03→15:00)
[2021-04-11] MEDS: Clopidogrel Bisulfate 75 MG Tablet PO (08:03)
[2021-04-11 10:00] VITALS: BP 152/94; RESP 16; TEMP 36.8; O2SAT 97
[2021-04-11 12:00] VITALS: BP 120/80; PULSE 90
[2021-04-11 12:00] LABS: Bedside Glucose 127 mg/dL (70-110)
[2021-04-11 14:02] VITALS: O2SAT 97
[2021-04-11 14:08] VITALS: BMI 26.2
[2021-04-11] MEDS: 0.9% Saline Lock 10 ML Syringe IV (15:03)
[2021-04-11 16:10] LABS: Bedside Glucose 113 mg/dL (70-110)
[2021-04-11 19:14] VITALS: BP 146/98; PULSE 108; RESP 16; TEMP 36.6; O2SAT 98
[2021-04-11] MEDS: Mirtazapine 30 MG Tablet PO (20:45)
[2021-04-11 20:57] VITALS: BMI 26.2
[2021-04-11] MEDS: Atorvastatin Calcium 40 MG Tablet PO (21:02)
[2021-04-11] MEDS: traZODone 50 MG Tablet PO (21:02)
[2021-04-11] MEDS: Insulin Lispro 100 UNIT/ML INSULN.PEN SC (21:19)
[2021-04-11 21:30] LABS: Bedside Glucose 189 mg/dL (70-110)
[2021-04-11 22:00] VITALS: PULSE 111; RESP 16; O2SAT 95
[2021-04-12] MEDS: Acetaminophen 325 MG Tablet 650 MG PO ×2 (04:20→16:51)
[2021-04-12] MEDS: Enoxaparin 40 MG/0.4 ML Syringe SC (05:41)
[2021-04-12 06:16] LABS: Bedside Glucose 164 mg/dL (70-110)
[2021-04-12 06:50] VITALS: O2SAT 95
[2021-04-12] MEDS: Insulin Lispro 100 UNIT/ML INSULN.PEN SC (07:39)
[2021-04-12] MEDS: metFORMIN HCl 500 MG Tablet PO ×2 (07:40→16:47)
[2021-04-12] MEDS: Lisinopril 20 MG Tablet PO (07:40)
[2021-04-12] MEDS: DULoxetine Hcl 60 MG Capsule PO (07:40)
[2021-04-12] MEDS: Pantoprazole Sodium 40 MG Tablet PO (07:40)
[2021-04-12] MEDS: Aspirin 81 MG TAB.CHEW PO (07:40)
[2021-04-12] MEDS: Potassium Chloride Oral Tablet 20 MEQ PO (07:40)
[2021-04-12] MEDS: Clopidogrel Bisulfate 75 MG Tablet PO (07:40)
[2021-04-12] MEDS: Iron Polysaccharide Complex 150 MG CAPSULE PO ×2 (07:41→16:47)
[2021-04-12 08:00] VITALS: BP 133/91; PULSE 104; RESP 16; TEMP 36.4; O2SAT 99
[2021-04-12 09:13] VITALS: PULSE 104
--- NOTE | 2021-04-12 09:31 | CASEMGMT ---
Addendum entered by Edilia Fernández 04/12/21 13:22: Pt qualifies for Palliative Care. pt and dtr agreeable to referral. Referral made to [facility]. Original Note: Social Work IDT met with patient and dtr via conference call for Team meeting. Discussed patient's progress in therapy and nursing. St working on swallowing and cognition. Explained [facility] insurance with NRD 04/16 and continued stay is not guaranteed. The goal is for pt to return home alone. However, dtr inquiring about pt transferring to TCU when insurance cuts if pt still needs continued therapy. Explained precert will be need acquired and insurance does not have to approve any SNF stay after RU. Provided TCU pv. py rate. Offered to assist with Medicaid application if pt would qualify. Dtr doesn't feel pt would qualify - suggested for SW to get financial information to confirm. However, referral made to TCU as that would be alternative DC option. Will RETeam next week. SW to continue to follow. Edilia Fernández, ODALIS GONZALEZW
[2021-04-12 12:05] LABS: Bedside Glucose 110 mg/dL (70-110)
[2021-04-12 12:13] VITALS: BMI 26.2
[2021-04-12 12:16] LABS: Hematocrit 30.2 % (37-47); Hemoglobin 8.8 g/dL (12.0-15.0)
[2021-04-12 12:40] LABS: Hemoglobin A1c 7.2 % (3.8-5.6)
[2021-04-12 12:58] LABS: Anion Gap 4 (5-15); BUN 16 mg/dL (7-18); BUN/Creat Ratio 14.5 RATIO (10-20); Calcium,Total 9.1 mg/dL (8.5-10.1); Chloride 104 mmol/L (98-107); EST Glomerular Filtration Rate 51 mL/min (>60); Est Glom Filt Rate - Afr Amer 62 mL/min (>60); Estimated Creatinine Clearance 40.99 ml/min; Glucose 107 mg/dL (74-106); Magnesium 1.5 mg/dL (1.6-2.6); Potassium 4.6 mmol/L (3.5-5.1); Sodium Level 134 mmol/L (136-145); Thyroid Stim Hormone (TSH) 3.03 uIU/mL (0.358-3.74)
[2021-04-12] MEDS: Ipratropium Bromide 0.06% NASAL SPRAY 2 SPRAY NASAL ×2 (13:07→19:40)
[2021-04-12] MEDS: Arthritis Pain Compound 60 CLICK TUBE TOPICAL ×2 (13:08→19:40)
[2021-04-12] MEDS: Ascorbic Acid 500 MG Tablet PO (16:47)
[2021-04-12 17:11] LABS: Bedside Glucose 144 mg/dL (70-110)
[2021-04-12] MEDS: Magnesium Chloride 64 MG Delay Rel.Tablet 128 MG PO ×2 (18:08→19:39)
[2021-04-12 19:21] VITALS: BP 133/82; PULSE 101; RESP 16; TEMP 37.2; O2SAT 97
[2021-04-12] MEDS: Atorvastatin Calcium 40 MG Tablet PO (19:40)
[2021-04-12] MEDS: QUEtiapine 25 MG Tablet PO (19:40)
[2021-04-12] MEDS: Mirtazapine 15 MG Tablet PO (19:41)
[2021-04-12 21:15] LABS: Bedside Glucose 120 mg/dL (70-110)
[2021-04-12 21:18] VITALS: PULSE 104; O2SAT 97
[2021-04-12 22:00] VITALS: PULSE 101
[2021-04-13] MEDS: Acetaminophen 325 MG Tablet 650 MG PO (02:48)
[2021-04-13 05:00] VITALS: BMI 26.2
[2021-04-13] MEDS: Enoxaparin 40 MG/0.4 ML Syringe SC (05:53)
[2021-04-13] MEDS: Arthritis Pain Compound 60 CLICK TUBE TOPICAL ×3 (05:54→21:31)
[2021-04-13 06:25] LABS: Bedside Glucose 115 mg/dL (70-110)
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
[2021-04-13] MEDS: traMADol 50 MG Tablet PO (07:08)
--- NOTE | 2021-04-13 07:38 | NURSING ---
pt working with occupational therapy this morning and therapy notified nursing staff that pt was dry heaving. pt noted to be hot and fan placed on pt. pt had no actual emesis. pt refuses breakfast at this time and given nectar thickened sobeida dorcas.
[2021-04-13 08:01] VITALS: BP 133/88; PULSE 116; RESP 16; TEMP 36.4; O2SAT 97
[2021-04-13 08:35] VITALS: PULSE 112
[2021-04-13] MEDS: Iron Polysaccharide Complex 150 MG CAPSULE PO ×2 (09:25→17:38)
[2021-04-13] MEDS: metFORMIN HCl 500 MG Tablet PO ×2 (09:25→17:38)
[2021-04-13] MEDS: Aspirin 81 MG TAB.CHEW PO (09:25)
[2021-04-13] MEDS: Potassium Chloride Oral Tablet 20 MEQ PO (09:25)
[2021-04-13] MEDS: Clopidogrel Bisulfate 75 MG Tablet PO (09:26)
[2021-04-13] MEDS: DULoxetine Hcl 60 MG Capsule PO (09:26)
[2021-04-13] MEDS: Lisinopril 20 MG Tablet PO (09:26)
[2021-04-13] MEDS: Ipratropium Bromide 0.06% NASAL SPRAY 2 SPRAY NASAL ×2 (09:26→21:31)
[2021-04-13] MEDS: Magnesium Chloride 64 MG Delay Rel.Tablet 128 MG PO ×2 (09:26→21:31)
[2021-04-13] MEDS: Pantoprazole Sodium 40 MG Tablet PO (09:26)
[2021-04-13 09:58] LABS: Vitamin D,25 Hydroxy 10.8 ng/mL
--- NOTE | 2021-04-13 10:23 | CON.PCM.PA_ITS ---
Assessment & Plan Assessment/Plan (1) Anxiety and depression: (2) Debility: (3) Chronic pain disorder: (4) Opioid dependence: (5) Neuropathic pain: (6) Insomnia: QUALIFIERS: Insomnia type: unspecified Qualified Code(s): G47.00 - Insomnia, unspecified (7) Acute ischemic left MCA stroke: (8) Acute on chronic anemia: (9) Diabetes mellitus, type 2: QUALIFIERS: Diabetes mellitus complication status: with other specified complication Diabetes mellitus detention insulin use: with termite exterminator helper use Qualified Code(s): E11.69 - Type 2 diabetes mellitus with other specified complication; Z79.4 - assisted (current) use of insulin (10) Osteoarthritis: QUALIFIERS: Osteoarthritis location: unspecified site Osteoarthritis type: unspecified Qualified Code(s): M19.90 - Unspecified osteoarthritis, unspecified site (11) Iron deficiency anemia: QUALIFIERS: Iron deficiency anemia type: unspecified iron deficiency Qualified Code(s): D50.9 - Iron deficiency anemia, unspecified (12) Congestive heart failure: (13) Right foot drop: (14) Hypertension: QUALIFIERS: Hypertension type: essential hypertension Qualified Code(s): I10 - Essential (primary) hypertension (15) Benzodiazepine dependence: (16) Poor dentition: (17) Dysphagia as late effect of cerebrovascular accident (CVA): (18) Tachycardia: (19) Chronic renal failure, stage 2 (mild): (20) Sleep-disordered breathing: PLAN: 80-year-old female being seen today for initial palliative care consultation secondary to severe anxiety and panic disorder, opioid and benzodiazepine dependence, s/p CVA now in rehab for continued therapy to hopefully regain function. ?Agree with the attending, would not restart any opioids. Would continue with topical cold arthritic cream, Tylenol PRN, conservative modalities such as ice, heat, massage. We could try switching to Tylenol ER scheduled if not getting any relief from chronic hip pain. ?I suspect her pain will get better once she is participating regularly in extensive counseling and psychiatric care. ?For the tachycardia, would add beta-pa, may help with anxiety. ?Agree with Seroquel at bedtime, would increase dose to 50 mg qhs and possibly add daytime dose if tolerating well. Titrate up as needed. ?Okay to continue clonazepam, but again once she is established with new psychiatrist, would collaborate adjusting medications with them. ?I will follow up in a couple of days, I suspect patient has significant trust issues with the medical profession, may be even in general, we will need to build a rapport with her. She is hesitant to accept any palliative care at this time, but we will continue the discussion. Thank you for the consult, I feel patient would benefit from palliative services and I look forward to continuing to follow her if she is agreeable. Please do not hesitate to contact palliative with any questions or concerns at [phone]. Greater than 50% of visit was dedicated to education and counseling on multiple comorbidities, medication review with patient, collaboration with attending, and discussing plan of care. Start time: 1125 End time: 1210 HPI Consult Data Date of Consult: 04/15/21 HPI Narrative HPI Narrative: NIA HAMILTON, is a 80 F who presented to [facility] 04/06/2021 status post fall at home. Family mission planner, states she appeared fine other than a forehead abrasion. Then approximately 2 hours later, patient was using the bathroom and was found on the floor with right side being flaccid, facial droop, and dysarthria. In the ED, labs showed elevated white count and lactic acid, also YRIS. She was evaluated by neurology and TPA was recommended. She was admitted to the ICU for further management. Patient has been on iron therapy for chronic anemia. She was diagnosed with type 2 diabetes last year, however does not follow any special diet. She is on oral therapy with Metformin. Has a history of significant anxiety and depression, takes duloxetine and mirtazapine, as well as trazodone at bedtime. Apparently she was also taking Ativan 3 times a day. She also had a fall in March 2020 resulting in a left hip fracture. Patient's right-sided weakness since TPA has improved significantly, she is now able to move the right side of her body. She did have a follow-up MRI 24 hours s/p TPA, showed acute frontal infarct, small bilateral infarct foci, no hemorrhagic conversion. Also had an echocardiogram, EF 55%, RVSP estimated at 61 mmHg, stage II diastolic dysfunction, and hypermobile atrial septum present. She does have a history of PFO noted in March 2020. A1c noted to be 7.9%. She was started on Lantus 10 units twice daily. Also received Venofer for her severe anemia. YRIS did resolve with IV fluids. Upon discharge from the hospital, patient was put on as needed Colace, iron 150 mg twice daily, Protonix 40 mg twice daily, and was taken off of guaifenesin and celecoxib. Also added atorvastatin 40 mg, lisinopril 20 mg, baby aspirin, and Humalog AC/HS. Patient was transferred to [facility] rehab 04/09 for further therapy. Patient does have a history of morphine overdose in August 2020, for which she was admitted to [facility]. She had been on narcotics since 1995, specifically oxycontin until 2018, then MS Contin. Per Dr. Rodarte, the patient's sisters have found multiple pill bottles of Ativan and gabapentin in the patient's home that she has been prescribed in the past. She does have a psychiatrist but has not been seen in over 2 years, but continues to RX Ativan. Discussed palliative services at length with Nia, she becomes very anxious and closed off when discussing palliative coming to her home for visits instead of her having to go out into the public. Offered for her to come to us at our office or meet at a neutral location, declines. States she likes to be alone with her cat, does not ever want to live with anyone or have anyone come to her house. States she has 3 daughters who are involved in her care, the each check on her throughout the week. Two of her daughters are nurses. She voices pride in her children's success. Patient admits she needs help with her anxiety and depression, however when discussing palliative she states she is fine and she does not need anything. When discussing her psychiatric care, also states she is fine. Presented information and alternate fashion and she then agrees again that she most definitely needs help. Discussed case w/ Dr. Rodarte. [facility] Medical History Anxiety Chronic renal failure, stage 2 (mild) Congestive heart failure (CHF) Congestive heart failure (CHF) Depression Diabetes Hypertension Hypertension Kidney disease Pulmonary hypertension Received intravenous tissue plasminogen activator (tPA) in emergency department Stroke/cerebrovascular accident Home Medications duloxetine 60 mg PO DAILY 11/23/18 [History Last Taken 04/06/21] trazodone 50 mg PO QHS PRN 11/23/18 [History Last Taken 04/06/21] potassium chloride 20 meq PO DAILY 04/11/20 [History Last Taken 04/06/21] mirtazapine 30 mg PO QHS@2000 08/30/20 [History Last Taken 04/06/21] aspirin 81 mg PO DAILY@0800 04/09/21 [History Last Taken Unknown] atorvastatin 40 mg PO QHS 04/09/21 [History Last Taken Unknown] docusate sodium [Colace] 100 mg PO BID PRN PRN #60 cap 04/09/21 [Rx Last Taken Unknown] insulin glargine [Lantus Solostar U-100 Insulin] 10 units SUBCUT BID 04/09/21 [History Last Taken Unknown] insulin lispro [Humalog KwikPen Insulin] See Protocol SUBCUT ACHS 04/09/21 [History Last Taken Unknown] lisinopril 20 mg PO DAILY 04/09/21 [History Last Taken Unknown] metformin 500 mg PO BID 04/09/21 [History Last Taken Unknown] pantoprazole 40 mg PO BIDCM #0 tab 04/09/21 [Rx Last Taken 04/06/21] polysaccharide iron complex 150 mg PO BIDCM #0 cap 04/09/21 [Rx Last Taken 04/06/21] Allergy/AdvReac Type Severity Reaction Status Date / Time morphine AdvReac delirium Verified 04/06/21 12:07 Family History Father Brain tumor Hypertension Mother Gallbladder disease Hypertension Other Diabetes Surgical History History of hip replacement History of open reduction and internal fixation (ORIF) procedure Social History household members: none number of children: 3 current occupational status: retired and disabled pets and animals: Yes pets and animals: cat(s) leisure activities: reading and other other: likes to watch educational documentaries on TV Smoking Status: Never smoker alcohol intake: never substance use type: does not use ROS Constitutional Constitutional: Reports fatigue, poor appetite and weakness Eyes Eyes: Denies change in vision Cardiovascular Cardiovascular: Denies edema or palpitations Respiratory/Chest Respiratory/Chest: Reports cough and shortness of breath with exertion Gastrointestinal Gastrointestinal: Reports other Details: no n/v currently, has occasional nausea. abd soft, NT. +BS Genitourinary Genitourinary: Denies dysuria or urinary frequency Musculoskeletal Musculoskeletal: Reports arthralgias, back pain, joint pain and muscle weakness; Denies muscle spasms Integumentary Integumentary: Reports dry skin; Denies rash Neurologic Neurologic: Reports frequent falls and other Details: R sided weakness, states improved. moves all extremities. mild dysarthria ; Denies seizures or tremor(s) Psychiatric Psychiatric: Reports depression and other Details: severe anxiety, easily distressed ; Denies hallucinations Hematologic/Lymphatic Hematologic/Lymphatic: Reports anemia; Denies easy bleeding or easy bruising Physical Exam Const alert and oriented x3 General Appearance: cooperative and anxious Orientation / Consciousness: oriented to person, oriented to place and oriented to time HEENT normocephalic and head/scalp atraumatic Eyes conjunctivae normal Neck supple General: trachea midline Resp normal respiratory effort Effort and Inspection: able to speak in complete sentences Auscultation: clear to auscultation bilaterally and diminished lung sounds Cardio S1 normal heart sound and S2 normal heart sound GI normal to inspection, nondistended, normoactive bowel sounds Auscultation: normoactive bowel sounds Skin no rashes or lesions noted Neuro oriented x3 and moves all extremities Neuro Narrative: slow to respond at times, some dysarthria. did not observe gait Psych Attitude: withdrawn and guarded Mood & Affect: depressed, anxious and flat affect Thought Process: illogical Insight: limited Judgement: limited
[2021-04-13 11:22] VITALS: BMI 26.2
--- NOTE | 2021-04-13 11:52 | PCM.PROGNOTE ---
Subjective Subjective Did not sleep well last night. Nursing reports she awoke at 4 AM. She is very anxious today and this is impairing her ability to do therapy. She was seen by palliative and we discussed plan for managing her anxiety. I reviewed the overnight trending pulse ox and she was tachycardic most of the night but, she also had bradycardia and this may be due to desaturation event. There were 6 desaturation events with Pulse ox < 88% for > 60 secs. She had no AF while in the hospital. TSH was normal yesterday. She is c/o pain in her buttock today. The night hospitalist ordered Ultram. At home she takes Acetaminophen and Alleve PRN for pain. She did reveal to the ST that her childhood was not very good. She also revealed that she is not able to eat in front of anyone........when she was a child she had to turn her back to the rest of the family when eating. She can not go out and eat at a restaurant. She has not been getting any therapy. PTSD? GEneralized Anxiety. Afebrile Blood pressure ranges from 120/82 151/99 since admission to the rehab unit. The heart rate was greater than 100 bpm for 52% of the monitoring time on the overnight trending pulse ox. The heart rate was less than 60 bpm 1.58% of the time she was monitored. the fluid intake yesterday was 1020. Blood sugar record was reviewed. All blood sugars are less than 200 and the hemoglobin A1c is 7.2% which is good for her age. She is incontinent of urine. All lab done yesterday was reviewed. Objective Data Objective Data Vital Signs: Vital Signs Temp Pulse Resp BP Pulse Ox 97.6 F L 112 H 16 133/88 H 97 04/13/21 08:01 04/13/21 08:35 04/13/21 08:01 04/13/21 08:01 04/13/21 08:01 Oxygen Flow Rate (L/min) 0 Oxygen Delivery Method Room Air Weight: 167 lb 8.821 oz Body Mass Index (BMI) 26.2 Intake & Output: Intake and Output for Last 24 Hours 04/11/21 04/12/21 04/13/21 23:59 23:59 23:59 Intake Total 1540 / 1540 820 / 820 320 / 320 Output Total 700 / 700 400 / 400 Balance 840 / 840 420 / 420 320 / 320 Lab / Micro Data Result Diagrams: 04/15/21 11:14 04/12/21 12:08 Labs: Laboratory Results - last 24 hr 04/12/21 04/12/21 04/12/21 11:59 12:08 12:08 Hgb 8.8 L Hct 30.2 L Sodium 134 L Potassium 4.6 Chloride 104 Carbon Dioxide 26.0 Anion Gap 4 L BUN 16 Creatinine 1.10 H Estim Creat Clear Calc 40.99 Est GFR (MDRD) Af Amer 62 Est GFR (MDRD) Non-Af 51 L BUN/Creatinine Ratio 14.5 Glucose 107 H Hemoglobin A1c Calcium 9.1 Magnesium 1.5 L Vitamin D 25-Hydroxy TSH 3.03 POC Glucose 110 04/12/21 04/12/21 04/12/21 12:08 16:50 20:43 Hgb Hct Sodium Potassium Chloride Carbon Dioxide Anion Gap BUN Creatinine Estim Creat Clear Calc Est GFR (MDRD) Af Amer Est GFR (MDRD) Non-Af BUN/Creatinine Ratio Glucose Hemoglobin A1c 7.2 H Calcium Magnesium Vitamin D 25-Hydroxy TSH POC Glucose 144 H 120 H 04/13/21 04/13/21 05:37 06:17 Hgb Hct Sodium Potassium Chloride Carbon Dioxide Anion Gap BUN Creatinine Estim Creat Clear Calc Est GFR (MDRD) Af Amer Est GFR (MDRD) Non-Af BUN/Creatinine Ratio Glucose Hemoglobin A1c Calcium Magnesium Vitamin D 25-Hydroxy 10.8 TSH POC Glucose 115 H Physical Exam Const alert General Appearance: cooperative HEENT Mouth: dry mucous membranes Resp normal respiratory effort and clear to auscultation bilaterally Cardio no gallops Rate: tachycardic GI normal to inspection, nondistended, normoactive bowel sounds and soft to palpation Extremity General Extremity: Negative for edema Skin General Skin Exam: no breakdown Rashes: no rashes Assessment & Plan Assessment/Plan (1) Iron deficiency anemia: QUALIFIERS: Iron deficiency anemia type: unspecified iron deficiency Qualified Code(s): D50.9 - Iron deficiency anemia, unspecified PLAN: 200 mg IV iron sucrose daily for 3 doses (2) Tachycardia: PLAN: start a beta-pa. (3) Acute ischemic left MCA stroke: PLAN: Continue therapy. (4) Sleep-disordered breathing: PLAN: Sleep study post discharge. (5) Benzodiazepine dependence: (6) Debility: (7) Dysphagia as late effect of cerebrovascular accident (CVA): PLAN: Needs a modified barium swallow. (8) Anxiety and depression: PLAN: Continue Seroquel for generalized anxiety. Try to avoid benzodiazepines as much as possible but she may have an element of acute withdrawal so we may need to restart and taper. Visit Charges Inpatient E&M: 03349 Subs Hosp L2
[2021-04-13 12:21] LABS: Bedside Glucose 147 mg/dL (70-110)
[2021-04-13 14:13] VITALS: BP 152/87; PULSE 104
[2021-04-13] MEDS: Metoprolol(XL)Succ 25 MG Tablet PO (14:13)
[2021-04-13] MEDS: QUEtiapine 25 MG Tablet PO (14:14)
[2021-04-13] MEDS: Mag Hydrox/Al Hydrox/Simeth 30 ML UDC PO (15:17)
[2021-04-13 17:20] LABS: Bedside Glucose 180 mg/dL (70-110)
[2021-04-13] MEDS: Ascorbic Acid 500 MG Tablet PO (17:38)
--- NOTE | 2021-04-13 18:32 | NURSING ---
with each round staff encourages pt to drink fluids. despite multiple attempts throughout the day, pt refusing to drink and has little to no intake of fluids. this RN tells pt that it has been awhile since she has voided so staff would like to do a bladder scan on her. pt refuses bladder scan and wants to attempt a void again. pt has no success with void attempt. This RN makes Dr. Rodarte aware. Dr. Rodarte orders IV placement with NS 500 ml bolus and NS 100 ml/hr after that. This RN encourages oral fluids. call light within reach and pt denies questions or concerns.
[2021-04-13] MEDS: QUEtiapine 25 MG Tablet 50 MG PO (19:28)
[2021-04-13] MEDS: Mirtazapine 15 MG Tablet PO (19:28)
[2021-04-13] MEDS: 0.9% Normal Saline 1,000 ML 100 ML IV (19:51)
[2021-04-13 19:58] VITALS: BP 149/84; PULSE 106; RESP 20; TEMP 36.6; O2SAT 95
[2021-04-13] MEDS: Atorvastatin Calcium 40 MG Tablet PO (21:31)
[2021-04-13 22:00] VITALS: PULSE 106
[2021-04-13 22:00] LABS: Bedside Glucose 115 mg/dL (70-110)
--- NOTE | 2021-04-14 01:00 | NURSING ---
NOTED URINE IN SUCTION CANNISTER CONNECTED TO PT'S PUREWICK.
[2021-04-14] MEDS: Acetaminophen 325 MG Tablet 650 MG PO (03:15)
--- NOTE | 2021-04-14 03:15 | NURSING ---
PT C/O #6 (1-10) MID BACK PAIN WHICH SHE STATES SHE HAS A HISTORY OF AND BELIEVES IT TO BE FROM FIBROMYALGIA. MEDICATED WITH TYLENOL.
--- NOTE | 2021-04-14 04:00 | NURSING ---
PT RESTING QUIETLY WITH EYES CLOSED.
[2021-04-14 05:00] VITALS: BMI 26.2
[2021-04-14] MEDS: Enoxaparin 40 MG/0.4 ML Syringe SC (05:47)
[2021-04-14] MEDS: Arthritis Pain Compound 60 CLICK TUBE TOPICAL ×3 (05:48→20:31)
[2021-04-14] MEDS: 0.9% Normal Saline 1,000 ML 100 ML IV ×2 (05:52→18:23)
--- NOTE | 2021-04-14 06:40 | NURSING ---
PT'S BLOOD SUGAR IS 57 PER GLUCOMETER. ORANGE JUICE/SUGAR PACKET 4 OZ GIVEN AND PT DRINKS. PT IS ASYMPTOMATIC WITH LOW BLLOD SUGAR THIS AM.
[2021-04-14] MEDS: metFORMIN HCl 500 MG Tablet PO ×2 (08:37→16:12)
[2021-04-14] MEDS: Ipratropium Bromide 0.06% NASAL SPRAY 2 SPRAY NASAL ×2 (08:37→20:31)
[2021-04-14] MEDS: Aspirin 81 MG TAB.CHEW PO (08:37)
[2021-04-14] MEDS: Potassium Chloride Oral Tablet 20 MEQ PO (08:37)
[2021-04-14] MEDS: Iron Polysaccharide Complex 150 MG CAPSULE PO ×2 (08:38→16:12)
[2021-04-14] MEDS: Pantoprazole Sodium 40 MG Tablet PO (08:38)
[2021-04-14] MEDS: DULoxetine Hcl 60 MG Capsule PO (08:38)
[2021-04-14] MEDS: Clopidogrel Bisulfate 75 MG Tablet PO (08:38)
[2021-04-14] MEDS: Magnesium Chloride 64 MG Delay Rel.Tablet 128 MG PO ×2 (08:38→20:33)
[2021-04-14 08:39] VITALS: PULSE 81
[2021-04-14] MEDS: Metoprolol(XL)Succ 25 MG Tablet PO (08:39)
[2021-04-14] MEDS: QUEtiapine 25 MG Tablet PO (08:39)
[2021-04-14] MEDS: Lisinopril 20 MG Tablet PO (08:40)
[2021-04-14 08:51] VITALS: BP 118/64; PULSE 81; RESP 20; TEMP 36.8; O2SAT 93
[2021-04-14 09:51] VITALS: BMI 26.2
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
[2021-04-14] MEDS: clonazePAM 0.5 MG Tablet PO (10:44)
--- NOTE | 2021-04-14 11:30 | EKG12_ITS ---
Test Reason : ROUTINE Blood Pressure : / mmHG Vent. Rate : 099 BPM Atrial Rate : 099 BPM P-R Int : 120 ms QRS Dur : 090 ms QT Int : 340 ms P-R-T Axes : 068 -14 100 degrees QTc Int : 436 ms Sinus rhythm with frequent Premature ventricular complexes ST & T wave abnormality, consider lateral ischemia Abnormal ECG When compared with ECG of 06-APR-2021 11:57, Premature ventricular complexes are now Present T wave inversion less evident in Lateral leads Confirmed by SERJIO MEADE, SHANIQUE ([id number]), film or videotape editor REYNA WHITMORE ([id number]) on 04/22/2021 11:23:01 AM Referred By: Leandra Rodarte Confirmed By:SHANIQUE BASSETT MD
[2021-04-14 11:37] LABS: Bedside Glucose 109 mg/dL (70-110)
[2021-04-14 11:37] LABS: Bedside Glucose 93 mg/dL (70-110)
[2021-04-14 11:37] LABS: Bedside Glucose 111 mg/dL (70-110)
[2021-04-14 11:37] LABS: Bedside Glucose 57 mg/dL (70-110)
[2021-04-14] MEDS: Sodium Ferric Gluconat 250 MG in 0.9% Normal Saline 250 ML 135 MG IV (12:20)
[2021-04-14] MEDS: Ascorbic Acid 500 MG Tablet PO (16:12)
[2021-04-14] MEDS: QUEtiapine 25 MG Tablet 50 MG PO (20:30)
[2021-04-14] MEDS: clonazePAM 0.5 MG Tablet 1 MG PO (20:32)
[2021-04-14] MEDS: Atorvastatin Calcium 40 MG Tablet PO (20:33)
[2021-04-14 20:55] VITALS: BMI 26.2
[2021-04-14 22:00] VITALS: BP 144/88; PULSE 91; RESP 16; TEMP 36.4; O2SAT 97
[2021-04-14 22:05] LABS: Bedside Glucose 113 mg/dL (70-110)
[2021-04-15] VITALS (13 sets, daily range): BP systolic 76–151; BP diastolic 43–92; PULSE 61–94; RESP 16–24; TEMP 36.1–36.8; O2SAT 93–99; BMI 26.2
[2021-04-15] MEDS: 0.9% Normal Saline 1,000 ML 100 ML IV (05:03)
[2021-04-15] MEDS: Arthritis Pain Compound 60 CLICK TUBE TOPICAL ×3 (05:39→21:48)
[2021-04-15] MEDS: Enoxaparin 40 MG/0.4 ML Syringe SC (05:39)
[2021-04-15 06:50] LABS: Bedside Glucose 132 mg/dL (70-110)
[2021-04-15 07:06] LABS: Color, Urine Yellow (Yellow); Glucose, Dipstick Normal (Normal); Ketone-Dipstick Negative (Negative); Leukocyte Esterase-Dipstick 500 /ul (Negative); Nitrite-Dipstick Negative (Negative); Occult Blood-Urine 25 /ul (Negative); Protein-Dipstick 15 mg/dl (Negative); Urine Bilirubin Dipstick Negative (Negative); Urine Clarity Cloudy (Clear); Urine Urobilinogen Normal (Normal)
[2021-04-15 07:12] LABS: Mucous, Urine 0 SEEN /hpf (<or=2+)
[2021-04-15 07:14] LABS: Bacteria 3+ /hpf (None Seen); Red Blood Cells-Urine 0-5 SEEN /hpf (0-5); Squamous Epithelial Cells - UA 0-5 SEEN /hpf (5-10); White Blood Cells 50-100 SEEN /hpf (0-5)
[2021-04-15] MEDS: Potassium Chloride Oral Tablet 20 MEQ PO (07:34)
[2021-04-15] MEDS: Iron Polysaccharide Complex 150 MG CAPSULE PO ×2 (07:35→15:56)
[2021-04-15] MEDS: Ipratropium Bromide 0.06% NASAL SPRAY 2 SPRAY NASAL ×2 (07:35→21:48)
[2021-04-15] MEDS: metFORMIN HCl 500 MG Tablet PO ×2 (07:35→15:55)
[2021-04-15] MEDS: Aspirin 81 MG TAB.CHEW PO (07:35)
[2021-04-15] MEDS: Magnesium Chloride 64 MG Delay Rel.Tablet 128 MG PO ×2 (07:36→21:50)
[2021-04-15] MEDS: Clopidogrel Bisulfate 75 MG Tablet PO (07:36)
[2021-04-15] MEDS: DULoxetine Hcl 60 MG Capsule PO (07:36)
[2021-04-15] MEDS: Pantoprazole Sodium 40 MG Tablet PO (07:37)
[2021-04-15] MEDS: QUEtiapine 25 MG Tablet PO (07:37)
[2021-04-15] MEDS: Metoprolol(XL)Succ 25 MG Tablet PO (07:37)
[2021-04-15] MEDS: clonazePAM 0.5 MG Tablet PO (07:39)
[2021-04-15] MEDS: Lisinopril 20 MG Tablet PO (07:40)
--- NOTE | 2021-04-15 09:56 | PN_ITS ---
Subjective Subjective Afebrile VSS Maintaining appropriate oxygen saturation on RA. Pulse ox on room currently is 96 to 97% however yesterday when trialing the Grider [place] protocol with speech therapy she was coughing consistently after a few sips. Her oxygen did drop to 88% at 1 point. Oral intake is poor The fluid balance on 04/14/2021 is +1340. Discussed with nursing - she has been coughing since she had the Grider water y . She would not let them clean her mouth prior to the water. The cough is not productive. Denies SOB and she slept better last night than she has since admission. She denies orthopnea. Reviewed the PT/OT/ST notes Medication list reviewed. Objective Data Objective Data Vital Signs: Vital Signs Temp Pulse Resp BP Pulse Ox 97.4 F L 61 16 114/70 96 04/15/21 08:02 04/15/21 08:02 04/15/21 08:02 04/15/21 08:02 04/15/21 08:02 Oxygen Flow Rate (L/min) 0 Oxygen Delivery Method Room Air Weight: 165 lb 9.074 oz Body Mass Index (BMI) 26.2 Intake & Output: Intake and Output for Last 24 Hours 04/13/21 04/14/21 04/15/21 23:59 23:59 23:59 Intake Total 1330 / 1330 2820 / 2820 1240 / 1240 Output Total 0 / 0 625 / 625 950 / 950 Balance 1330 / 1330 2195 / 2195 290 / 290 Lab / Micro Data Result Diagrams: 04/15/21 11:14 04/12/21 12:08 Labs: Laboratory Results - last 24 hr 04/14/21 04/14/21 04/14/21 06:40 06:57 08:43 Urine Color Urine Clarity Urine pH Ur Specific [place] Urine Protein Urine Glucose (UA) Urine Ketones Urine Occult Blood Urine Nitrite Urine Bilirubin Urine Urobilinogen Ur Leukocyte Esterase Urine RBC Urine WBC Ur Squamous Epith Cells Urine Bacteria Urine Mucus POC Glucose 57 L 109 111 H 04/14/21 04/14/21 04/15/21 11:05 21:35 06:46 Urine Color Urine Clarity Urine pH Ur Specific [place] Urine Protein Urine Glucose (UA) Urine Ketones Urine Occult Blood Urine Nitrite Urine Bilirubin Urine Urobilinogen Ur Leukocyte Esterase Urine RBC Urine WBC Ur Squamous Epith Cells Urine Bacteria Urine Mucus POC Glucose 93 113 H 132 H 04/15/21 07:45 Urine Color Yellow Urine Clarity Cloudy Urine pH 6.0 Ur Specific [place] 1.010 Urine Protein 15 H Urine Glucose (UA) Normal Urine Ketones Negative Urine Occult Blood 25 H Urine Nitrite Negative Urine Bilirubin Negative Urine Urobilinogen Normal Ur Leukocyte Esterase 500 H Urine RBC 0-5 SEEN Urine WBC 50-100 SEEN Ur Squamous Epith Cells 0-5 SEEN Urine Bacteria 3+ Urine Mucus 0 SEEN POC Glucose Physical Exam Const alert and oriented x3 Constitutional Narrative: she is coughing General Appearance: cooperative Resp normal respiratory effort Resp Narrative: no conversational dyspnea and no accessory muscle use Effort and Inspection: Negative for tachypneic Auscultation: rales and wheezes Cardio regular rate, regular rhythm and no gallops GI normal to inspection, nondistended, normoactive bowel sounds and soft to palpation Extremity Extremity Narrative: no edema Assessment & Plan Assessment/Plan (1) Acute ischemic left MCA stroke: PLAN: Continue therapy (2) Dysphagia: QUALIFIERS: Dysphagia type: unspecified Qualified Code(s): R13.10 - Dysphagia, unspecified PLAN: She is now agreeable to a MBS and it has been scheduled for [facility] (3) Poor dentition: PLAN: This is a problem because she was coughing consistently with the Grider water yesterday and she will not allow anyone to clean her mouth. She has very poor dentition and now she is coughing. The chest XRAY today shows mild increase in the interstitial markings with no infiltrates and no pleural effusion. Will check a BNP and a CBC with diff. I had started her on Cefadroxil for a UTI however I am going to change this to Augmentin in light of the new cough......I suspected she is aspirating the Grider water. (4) Cough: PLAN: see above. I suspect she has aspiration pneumonia. (5) Benzodiazepine dependence: PLAN: She was restarted on a benzo yesterday.....I suspect she has been having some acute withdrawal and the extreme anxiety was impairing progress in therapy. She slept well last night and is alert and cooperative today. Will continue and after 7 days will try and decrease the dose to 0.5 mg BID..... .Would like to eliminate benzo's at some point and continue to use the Seroquel (6) Sleep-disordered breathing: PLAN: Needs a sleep study post DC. Will apply oxygen at HS for now (7) Anxiety and depression: (8) Insomnia: QUALIFIERS: Insomnia type: unspecified Qualified Code(s): G47.00 - Insomnia, unspecified PLAN: this was much better last night after starting Klonopin in addition to the Seroquel. Will continue to give Klonopin BID. (9) Cystitis: PLAN: urine culture ordered and she has been started on an antibiotic.
[2021-04-15] MEDS: Cefadroxil 500 MG CAPSULE PO (10:00)
--- NOTE | 2021-04-15 10:30 | RAD_ITS ---
STUDY: X-RAY CHEST REASON FOR EXAM: Female, 80 years old. Cough with rales and wheezes TECHNIQUE: PA and lateral views of the chest. COMPARISON: 04/10/2021 FINDINGS: Lungs are mildly hyperexpanded with chronic interstitial changes, no superimposed acute pulmonary process. There is no demonstrated pleural abnormality. Normal size heart. Normal mediastinum and patricia. Normal visualized pulmonary arteries. Normal visualized aortic arch and descending thoracic aorta. Degenerative changes noted throughout the thoracic spine with a levoscoliosis. Multiple old healed bilateral rib fractures. Retrocardiac hiatal hernia RAD/Chest PA and Lateral IMPRESSION: Degenerative changes, as described above. No demonstrated acute cardiopulmonary process. Hiatal hernia Old healed bilateral rib fractures Electronically Signed: Jovi Carrion MD at 11:00 EDT , Service support ,
[2021-04-15] MEDS: Sodium Ferric Gluconat 250 MG in 0.9% Normal Saline 250 ML 135 MG IV (10:46)
[2021-04-15] MEDS: 0.9% Saline Lock 10 ML Syringe IV (10:53)
[2021-04-15 11:24] LABS: Absolute Lymphocyte Count 1.28 X10^3/uL (0.83-4.51); Absolute Neutrophil Count 4.9 X10^3/uL (2.0-7.7); Basophil# 0.07 X10^3/uL; Eosinophil# 0.35 X10^3/uL; Eosinophils% 4.8 % (0-5); Hematocrit 26.5 % (37-47); Hemoglobin 7.4 g/dL (12.0-15.0); Lymphocyte # 1.28 X10^3/ul (0.83-4.51); Lymphocyte % 17.5 % (19-41); Mean Corp Hgb Conc 27.9 g/dL (32-36); Mean Corpuscular Hgb 23.4 pg (27.0-32.0); Mean Corpuscular Volume 83.9 fL (81-99); Mean Platelet Vol. 9.9 fl (6.2-12.0); Monocyte# 0.62 X10^3/uL; Monocyte% 8.5 % (0-10); NRBC Flagged by Analyzer 0 % (0-5); Neutrophil # 4.92 X10^3/uL (2.7-7.7); Neutrophil % 67.2 % (47-70); POSITIVE MORPHOLOGY YES; Platelet Count 340 K/mm3 (150-450); RBC Distribution Width CV 22.2 % (11.6-14.6); Red Blood Count 3.16 M/mm3 (4.2-5.4); White Blood Count 7.3 K/mm3 (4.4-11.0)
[2021-04-15 11:45] LABS: Anisocytosis 1+; Differential Comment SCANNED; Hypochromasia 3+; Microcytosis 1+
[2021-04-15 11:53] LABS: Anion Gap 5 (5-15); BUN 18 mg/dL (7-18); BUN/Creat Ratio 18.7 RATIO (10-20); Calcium,Total 8.2 mg/dL (8.5-10.1); Chloride 110 mmol/L (98-107); Creatinine, Serum 0.96 mg/dL (0.55-1.02); EST Glomerular Filtration Rate 59 mL/min (>60); Est Glom Filt Rate - Afr Amer 72 mL/min (>60); Estimated Creatinine Clearance 46.97 ml/min; Glucose 109 mg/dL (74-106); Potassium 4.6 mmol/L (3.5-5.1); Sodium Level 139 mmol/L (136-145)
[2021-04-15 11:54] LABS: BNP,B-Type NATRIURETIC PEPTIDE 946.4 pg/mL (0-100)
[2021-04-15] MEDS: Amox/Clav 250mg/5ml Suspension 500 MG PO ×2 (12:42→15:55)
[2021-04-15] MEDS: Furosemide 40 MG Tablet PO (12:42)
[2021-04-15] MEDS: Ipratropium/Albuterol Sulfate 3 ML AMPUL.NEB INHALATION (14:01)
[2021-04-15] MEDS: Ascorbic Acid 500 MG Tablet PO (15:55)
[2021-04-15] MEDS: Furosemide 40 MG/4 ML Vial IV (21:18)
[2021-04-15] MEDS: QUEtiapine 25 MG Tablet 50 MG PO (21:48)
[2021-04-15 21:50] LABS: Bedside Glucose 148 mg/dL (70-110)
[2021-04-15] MEDS: Atorvastatin Calcium 40 MG Tablet PO (21:50)
[2021-04-15] MEDS: clonazePAM 0.5 MG Tablet 1 MG PO (21:53)
[2021-04-16] VITALS (10 sets, daily range): BP systolic 103–137; BP diastolic 62–87; PULSE 68–98; RESP 16–18; TEMP 36–36.8; O2SAT 96–99; BMI 26.2
[2021-04-16 00:10] LABS: Bedside Glucose 117 mg/dL (70-110)
[2021-04-16] MEDS: 0.9% Saline Lock 10 ML Syringe IV ×2 (01:27→20:03)
[2021-04-16 06:11] LABS: Bedside Glucose 76 mg/dL (70-110)
[2021-04-16] MEDS: Arthritis Pain Compound 60 CLICK TUBE TOPICAL ×3 (06:16→20:31)
[2021-04-16] MEDS: Enoxaparin 40 MG/0.4 ML Syringe SC (06:17)
[2021-04-16] MEDS: Ipratropium/Albuterol Sulfate 3 ML AMPUL.NEB INHALATION ×3 (07:05→15:20)
[2021-04-16] MEDS: Ipratropium Bromide 0.06% NASAL SPRAY 2 SPRAY NASAL ×2 (08:34→20:32)
[2021-04-16] MEDS: metFORMIN HCl 500 MG Tablet PO ×2 (08:35→16:34)
[2021-04-16] MEDS: Acetaminophen 325 MG Tablet 650 MG PO ×2 (08:35→19:57)
[2021-04-16] MEDS: Potassium Chloride Oral Tablet 20 MEQ PO (08:35)
[2021-04-16] MEDS: Metoprolol(XL)Succ 25 MG Tablet PO (08:35)
[2021-04-16] MEDS: Clopidogrel Bisulfate 75 MG Tablet PO (08:36)
[2021-04-16] MEDS: Lisinopril 20 MG Tablet PO (08:36)
[2021-04-16] MEDS: Aspirin 81 MG TAB.CHEW PO (08:36)
[2021-04-16] MEDS: Iron Polysaccharide Complex 150 MG CAPSULE PO ×2 (08:36→16:34)
[2021-04-16] MEDS: DULoxetine Hcl 60 MG Capsule PO (08:36)
[2021-04-16] MEDS: Pantoprazole Sodium 40 MG Tablet PO (08:36)
[2021-04-16] MEDS: QUEtiapine 25 MG Tablet PO (08:36)
[2021-04-16] MEDS: Magnesium Chloride 64 MG Delay Rel.Tablet 128 MG PO ×2 (08:36→20:36)
[2021-04-16] MEDS: clonazePAM 0.5 MG Tablet PO (08:40)
[2021-04-16] MEDS: Amox/Clav 250mg/5ml Suspension 500 MG PO ×3 (09:09→16:34)
[2021-04-16] MEDS: Phenazopyridine 95 MG Tablet PO ×2 (14:33→20:33)
--- NOTE | 2021-04-16 15:49 | PN.PALL_ITS ---
Subjective Subjective Patient reports she is feeling better. Has had 2 nights now that she has slept very well. Also had 2 units of PRBCs yesterday. Coughing some but tells me she swallows just fine. She is on thickened liquids and was to have MBS today, however changed her mind again. Possibly Monday? Nursing reports some hypoxia that was easily corrected w/ 2L/nc. No pain currently. Lying in bed. Objective Data Objective Data Vital Signs: Vital Signs Temp Pulse Resp BP Pulse Ox 96.8 F L 84 18 106/73 99 04/16/21 07:57 04/16/21 15:20 04/16/21 15:20 04/16/21 08:35 04/16/21 07:57 Oxygen Flow Rate (L/min) 2 Oxygen Delivery Method Room Air Weight: 75.1 kg Body Mass Index (BMI) 26.2 Intake & Output: Intake and Output for Last 24 Hours 04/14/21 04/15/21 04/16/21 23:59 23:59 23:59 Intake Total 2820 / 2820 2961.67 / 2961.67 1240 / 1240 Output Total 625 / 625 2300 / 2300 1600 / 1600 Balance 2195 / 2195 661.67 / 661.67 -360 / -360 Lab / Micro Data Result Diagrams: 04/15/21 11:14 04/15/21 11:14 Labs: Laboratory Results - last 24 hr 04/15/21 04/15/21 04/15/21 12:22 21:45 23:50 POC Glucose 148 H 117 H Blood Type A POSITIVE Antibody Screen NEGATIVE Crossmatch See Detail 04/16/21 06:02 POC Glucose 76 Blood Type Antibody Screen Crossmatch Micro: Microbiology 04/15/21 07:45 Urine, Random Urine Culture - Preliminary GNR lactose weaver apprentice Physical Exam Const alert and oriented x3 General Appearance: cooperative and anxious Orientation / Consciousness: oriented to person, oriented to place and oriented to time Neck supple General: trachea midline Resp normal respiratory effort Effort and Inspection: able to speak in complete sentences Auscultation: diminished lung sounds and other few faint rhonchi, otherwise clear Cardio S1 normal heart sound and S2 normal heart sound GI normal to inspection, nondistended, normoactive bowel sounds Skin Skin Narrative: scabs on arms Neuro oriented x3 and moves all extremities Neuro Narrative: slow to respond at times, some dysarthria but seems improved today. facial assymetry unchanged Psych cooperative and denies hallucinations Appearance: appropriate Attitude: calm Activity / Motor Behavior: appropriate eye contact Speech: normal speech Insight: limited Judgement: limited Assessment & Plan Assessment/Plan (1) Anxiety and depression: (2) Debility: (3) Chronic pain disorder: (4) Opioid dependence: (5) Neuropathic pain: (6) Insomnia: QUALIFIERS: Insomnia type: unspecified Qualified Code(s): G47.00 - Insomnia, unspecified (7) Acute ischemic left MCA stroke: (8) Acute on chronic anemia: (9) Diabetes mellitus, type 2: QUALIFIERS: Diabetes mellitus chcf insulin use: with chcf use Diabetes mellitus complication status: with other specified complicat ion Qualified Code(s): E11.69 - Type 2 diabetes mellitus with other specified complication; Z79.4 - residential (current) use of insulin (10) Osteoarthritis: QUALIFIERS: Osteoarthritis location: unspecified site Osteoarthritis type: unspecified Qualified Code(s): M19.90 - Unspecified osteoarthritis, unspecified site (11) Iron deficiency anemia: QUALIFIERS: Iron deficiency anemia type: unspecified iron deficiency Qualified Code(s): D50.9 - Iron deficiency anemia, unspecified (12) Congestive heart failure: (13) Right foot drop: (14) Hypertension: QUALIFIERS: Hypertension type: essential hypertension Qualified Code(s): I10 - Essential (primary) hypertension (15) Benzodiazepine dependence: (16) Poor dentition: (17) Dysphagia as late effect of cerebrovascular accident (CVA): (18) Tachycardia: (19) Chronic renal failure, stage 2 (mild): (20) Sleep-disordered breathing: PLAN: 80-year-old female being seen today for palliative care follow up 2/2 severe anxiety and panic disorder, opioid and benzodiazepine dependence, s/p CVA now in rehab for continued therapy to hopefully regain function. ?Agree with the attending, would not restart any opioids. Would continue with topical cold arthritic cream, Tylenol PRN, conservative modalities such as ice, heat, massage. We could try switching to Tylenol ER scheduled if not getting any relief from chronic hip pain. ?I suspect her pain will get better once she is participating regularly in extensive counseling and psychiatric care. ?Agree with Seroquel at bedtime, would increase dose to 50 mg qhs and possibly add daytime dose if tolerating well. Titrate up as needed. ?Okay to continue clonazepam, but again once she is established with new psychiatrist, would collaborate adjusting medications with them. Plan to wean off once seroquel dose has been increased, if tolerating. ?She is hesitant to accept any palliative care at this time, but we will continue the discussion. -she is now on Augmentin for suspected aspiration PNA, possible MBS Thursday 04/19. Please do not hesitate to contact palliative with any questions or concerns at [phone].
[2021-04-16] MEDS: Ascorbic Acid 500 MG Tablet PO (16:34)
[2021-04-16] MEDS: QUEtiapine 25 MG Tablet 50 MG PO (20:00)
[2021-04-16] MEDS: Atorvastatin Calcium 40 MG Tablet PO (20:34)
[2021-04-16] MEDS: clonazePAM 0.5 MG Tablet 1 MG PO (20:54)
[2021-04-16 21:45] LABS: Bedside Glucose 119 mg/dL (70-110)
[2021-04-17] MEDS: Phenazopyridine 95 MG Tablet PO ×3 (05:26→19:53)
[2021-04-17] MEDS: Enoxaparin 40 MG/0.4 ML Syringe SC (05:26)
[2021-04-17] MEDS: Arthritis Pain Compound 60 CLICK TUBE TOPICAL ×3 (05:26→19:52)
[2021-04-17] MEDS: Ipratropium/Albuterol Sulfate 3 ML AMPUL.NEB INHALATION ×3 (06:50→18:34)
[2021-04-17 07:00] VITALS: O2SAT 96
[2021-04-17 07:15] LABS: Bedside Glucose 106 mg/dL (70-110)
[2021-04-17 08:00] VITALS: BP 117/71; PULSE 94; RESP 16; TEMP 36.4; O2SAT 96
[2021-04-17] MEDS: Magnesium Chloride 64 MG Delay Rel.Tablet 128 MG PO ×2 (08:18→19:54)
[2021-04-17 08:19] VITALS: PULSE 90
[2021-04-17] MEDS: Lisinopril 20 MG Tablet PO (08:19)
[2021-04-17] MEDS: DULoxetine Hcl 60 MG Capsule PO (08:19)
[2021-04-17] MEDS: Pantoprazole Sodium 40 MG Tablet PO (08:19)
[2021-04-17] MEDS: metFORMIN HCl 500 MG Tablet PO ×2 (08:19→17:44)
[2021-04-17] MEDS: Metoprolol(XL)Succ 25 MG Tablet PO (08:19)
[2021-04-17] MEDS: Clopidogrel Bisulfate 75 MG Tablet PO (08:20)
[2021-04-17] MEDS: Aspirin 81 MG TAB.CHEW PO (08:20)
[2021-04-17] MEDS: Potassium Chloride Oral Tablet 20 MEQ PO (08:21)
[2021-04-17] MEDS: Iron Polysaccharide Complex 150 MG CAPSULE PO ×2 (08:21→17:44)
[2021-04-17] MEDS: Ipratropium Bromide 0.06% NASAL SPRAY 2 SPRAY NASAL ×2 (08:22→19:53)
[2021-04-17] MEDS: QUEtiapine 25 MG Tablet PO (08:23)
[2021-04-17] MEDS: clonazePAM 0.5 MG Tablet PO (08:28)
[2021-04-17] MEDS: Amox/Clav 250mg/5ml Suspension 500 MG PO (08:29)
[2021-04-17 10:42] VITALS: PULSE 86; RESP 18
[2021-04-17] MEDS: Ceftriaxone 1 GM/50 ML BAG IV (12:58)
[2021-04-17] MEDS: 0.9% Saline Lock 10 ML Syringe IV ×2 (13:28→19:48)
[2021-04-17] MEDS: Acetaminophen 325 MG Tablet 650 MG PO (13:28)
[2021-04-17 15:07] VITALS: BMI 26.2
[2021-04-17] MEDS: Ascorbic Acid 500 MG Tablet PO (17:44)
[2021-04-17 18:10] LABS: Hematocrit 38.1 % (37-47); Hemoglobin 11.3 g/dL (12.0-15.0)
[2021-04-17 18:34] VITALS: PULSE 93; RESP 18
[2021-04-17 19:21] VITALS: PULSE 90; RESP 16; TEMP 36.4; O2SAT 96
[2021-04-17] MEDS: QUEtiapine 25 MG Tablet 50 MG PO (19:52)
[2021-04-17] MEDS: Atorvastatin Calcium 40 MG Tablet PO (19:54)
[2021-04-17 20:10] VITALS: BMI 26.2
[2021-04-17 21:21] LABS: Bedside Glucose 145 mg/dL (70-110)
[2021-04-17] MEDS: clonazePAM 0.5 MG Tablet 1 MG PO (21:29)
[2021-04-18] VITALS (7 sets, daily range): BP systolic 121–135; BP diastolic 79–85; PULSE 79–112; RESP 16–20; TEMP 36.9–37; O2SAT 95–97; BMI 26.2
[2021-04-18] MEDS: Mag Hydrox/Al Hydrox/Simeth 30 ML UDC PO ×2 (02:21→18:46)
[2021-04-18] MEDS: Arthritis Pain Compound 60 CLICK TUBE TOPICAL ×3 (06:15→19:49)
[2021-04-18] MEDS: Enoxaparin 40 MG/0.4 ML Syringe SC (06:15)
[2021-04-18] MEDS: Phenazopyridine 95 MG Tablet PO (06:15)
[2021-04-18] MEDS: Ipratropium/Albuterol Sulfate 3 ML AMPUL.NEB INHALATION ×4 (06:40→19:08)
[2021-04-18 06:50] LABS: Bedside Glucose 101 mg/dL (70-110)
[2021-04-18] MEDS: Potassium Chloride Oral Tablet 20 MEQ PO (07:45)
[2021-04-18] MEDS: Aspirin 81 MG TAB.CHEW PO (07:46)
[2021-04-18] MEDS: Pantoprazole Sodium 40 MG Tablet PO (07:46)
[2021-04-18] MEDS: DULoxetine Hcl 60 MG Capsule PO (07:46)
[2021-04-18] MEDS: Magnesium Chloride 64 MG Delay Rel.Tablet 128 MG PO ×2 (07:46→19:50)
[2021-04-18] MEDS: Metoprolol(XL)Succ 25 MG Tablet PO (07:47)
[2021-04-18] MEDS: Ipratropium Bromide 0.06% NASAL SPRAY 2 SPRAY NASAL ×2 (07:48→19:50)
[2021-04-18] MEDS: Iron Polysaccharide Complex 150 MG CAPSULE PO ×2 (07:49→16:49)
[2021-04-18] MEDS: metFORMIN HCl 500 MG Tablet PO ×2 (07:49→16:49)
[2021-04-18] MEDS: Clopidogrel Bisulfate 75 MG Tablet PO (07:50)
[2021-04-18] MEDS: QUEtiapine 25 MG Tablet PO (07:51)
[2021-04-18] MEDS: Lisinopril 20 MG Tablet PO (07:51)
[2021-04-18] MEDS: clonazePAM 0.5 MG Tablet PO (07:51)
[2021-04-18] MEDS: Ceftriaxone 1 GM/50 ML BAG IV (09:04)
[2021-04-18] MEDS: 0.9% Saline Lock 10 ML Syringe IV ×2 (09:04→19:52)
[2021-04-18] MEDS: Acetaminophen 325 MG Tablet 650 MG PO (12:13)
--- NOTE | 2021-04-18 16:11 | NURSING ---
Offered to ambulate pt multiple times and pt declined despite staff encouragement. Resting in bed at this time with call light in reach, denies needs.
[2021-04-18] MEDS: Ascorbic Acid 500 MG Tablet PO (16:49)
[2021-04-18] MEDS: QUEtiapine 25 MG Tablet 50 MG PO (19:49)
[2021-04-18] MEDS: Atorvastatin Calcium 40 MG Tablet PO (19:50)
[2021-04-18 21:20] LABS: Bedside Glucose 113 mg/dL (70-110)
[2021-04-18] MEDS: clonazePAM 0.5 MG Tablet 1 MG PO (22:00)
[2021-04-19] MEDS: Arthritis Pain Compound 60 CLICK TUBE TOPICAL ×3 (06:09→19:29)
[2021-04-19] MEDS: Enoxaparin 40 MG/0.4 ML Syringe SC (06:09)
[2021-04-19 06:41] LABS: Bedside Glucose 114 mg/dL (70-110)
[2021-04-19 07:19] VITALS: BP 113/58; PULSE 87; RESP 18; TEMP 36.5; O2SAT 93
[2021-04-19] MEDS: Potassium Chloride Oral Tablet 20 MEQ PO (07:53)
[2021-04-19] MEDS: Iron Polysaccharide Complex 150 MG CAPSULE PO ×2 (07:53→16:22)
[2021-04-19] MEDS: Ipratropium Bromide 0.06% NASAL SPRAY 2 SPRAY NASAL ×2 (07:54→21:13)
[2021-04-19] MEDS: Lisinopril 20 MG Tablet PO (07:55)
[2021-04-19] MEDS: Clopidogrel Bisulfate 75 MG Tablet PO (07:55)
[2021-04-19 07:56] VITALS: BP 113/58; PULSE 87
[2021-04-19] MEDS: Magnesium Chloride 64 MG Delay Rel.Tablet 128 MG PO ×2 (07:56→20:53)
[2021-04-19] MEDS: Pantoprazole Sodium 40 MG Tablet PO (07:56)
[2021-04-19] MEDS: DULoxetine Hcl 60 MG Capsule PO (07:56)
[2021-04-19] MEDS: QUEtiapine 25 MG Tablet PO (07:56)
[2021-04-19] MEDS: metFORMIN HCl 500 MG Tablet PO ×2 (07:56→16:22)
[2021-04-19] MEDS: Aspirin 81 MG TAB.CHEW PO (07:56)
[2021-04-19] MEDS: Metoprolol(XL)Succ 25 MG Tablet PO (07:56)
[2021-04-19] MEDS: clonazePAM 0.5 MG Tablet PO ×2 (07:59→21:12)
--- NOTE | 2021-04-19 10:05 | CASEMGMT ---
Social Work IDT met with patient for Team meeting. Left message for dtr and requested return phone call to discuss DC plans. IDT recommending alternative DC plan than home alone. Pt is unsafe at home alone, and unsure if that will ever be a safe DC plan. Pt did agree to MBS this date. ST continues to work on cognition and visual social skills. Pt remains incontinent B&B, max for toileting and only wanting a sponge bath. Pt expresses wanting to return home. Encouraged to allow for full shower to better allow assessment of abilities. Pt agreeable. Explained still awaiting insurance outcome from review 04/16. SW to continue to follow. Edilia Fernández, GUEST HISTORY CLERK LABORER CHEMICAL PROCESSING
[2021-04-19 10:42] VITALS: BMI 26.2
[2021-04-19 11:16] VITALS: PULSE 87; RESP 16
[2021-04-19] MEDS: Ipratropium/Albuterol Sulfate 3 ML AMPUL.NEB INHALATION (11:16)
[2021-04-19] MEDS: 0.9% Saline Lock 10 ML Syringe IV ×2 (11:19→21:17)
[2021-04-19] MEDS: Ceftriaxone 1 GM/50 ML BAG IV (11:26)
--- NOTE | 2021-04-19 11:54 | CASEMGMT ---
Social Work Dtr returned call. Spoke with dtr and provided update from Team meeting. Did receive insurance outcome - NRD 04/23. Suggested to get DC plans in place. Dtr agreed for SW to email list of nonskilled C agencies and SNF list. Dtr to choose SNF for alternative DC plan. Reiterated [employer] can deny to cover SNF stay and pt would be out of pocket. Inquired about Medicaid eligibility. per dtr, pt is over resources and is not eligible for Medicaid. SW to continue to assist for DC plans. Edilia Fernández, DENTAL HYGIENIST STRATEGY SPECIALIST
--- NOTE | 2021-04-19 14:29 | PN_ITS ---
Subjective Subjective Bonnie was seen on team rounds today. Her daughter Patito was not available to participate. Day #3/ Rocephin for UTI secondary to Enterobacter Aerogenes Afebrile VSS-blood pressure is well controlled and the tachycardia has resolved with the institution of beta-pa. Maintaining appropriate oxygen saturation on RA Oral intake is poor Discussed with nursing - She is not motivated to get out of bed and move. She is constantly wanting a pure wick catheter so she does not have to get out of bed. She knows when she has to urinate and she can hold it until she gets to the BR. Her dtr also does not want her to have a catheter per nursing. She will not shower with the OT although she gets a shower at home and her dtr helps her. she has been washing up at the sink. She also does not want the ST to watch her eat and she will not allow good mouth care. Reviewed the PT/OT/ST notes Medication list reviewed. The blood sugar record was reviewed and all blood sugars are under good control with no hypoglycemia and no blood sugars greater than 200. She is very drowsy today and she acknowledges this. She is sleeping well. She is mostly in bed when I see her unless she is in the therapy room. She denies CP, SOB. The cough is much better. No calf pain and denies dysuria. The urine culture was positive for Enterobacter Aerogenes. It is resistant to cefazolin and intermediately sensitive to nitrofurantoin but sensitive to all the other drugs tested. She is currently on Rocephin. Objective Data Objective Data Vital Signs: Vital Signs Temp Pulse Resp BP Pulse Ox 97.7 F L 87 16 113/58 L 93 04/19/21 07:19 04/19/21 11:16 04/19/21 11:16 04/19/21 07:56 04/19/21 07:19 Oxygen Flow Rate (L/min) 2 Oxygen Delivery Method Room Air Weight: 165 lb 2.02 oz Body Mass Index (BMI) 26.2 Intake & Output: Intake and Output for Last 24 Hours 04/17/21 04/18/21 04/19/21 23:59 23:59 23:59 Intake Total 950 / 950 770 / 770 290.5 / 290.5 Output Total 600 / 600 150 / 150 Balance 350 / 350 620 / 620 290.5 / 290.5 Lab / Micro Data Result Diagrams: 04/17/21 17:18 04/15/21 11:14 Labs: Laboratory Results - last 24 hr 04/18/21 04/19/21 20:02 06:16 POC Glucose 113 H 114 H Micro: Microbiology 04/15/21 07:45 Urine, Random Urine Culture - Final Enterobacter aerogenes Physical Exam Const Constitutional Narrative: Drowsy, not very talkative today. Did not have any questions. HEENT Mouth: dry mucous membranes Resp Auscultation: rales bilateral and localized (localized to the bases and they clear once she is sitting up and taking deeper breaths. She is not tachypneic and has no conversational dyspnea. ) and diminished lung sounds; Negative for wheezes Cardio regular rate, regular rhythm and no gallops GI normal to inspection, nondistended, normoactive bowel sounds and soft to palpation Extremity General Extremity: Negative for edema Skin General Skin Exam: no breakdown Rashes: no rashes Neuro Neuro Narrative: persistent facial droop and dysarthria/dysphagia. Voice is very soft today and she is drowsy. Psych Negative for denies suicidal ideation Mood & Affect: flat affect Thought Content: No hallucination(s) Assessment & Plan Assessment/Plan (1) Acute ischemic left MCA stroke: (2) Debility: (3) Dysphagia as late effect of cerebrovascular accident (CVA): (4) Cystitis: (5) Poor dentition: (6) Benzodiazepine dependence: (7) Sleep-disordered breathing: (8) Iron deficiency anemia: QUALIFIERS: Iron deficiency anemia type: unspecified iron deficiency Qualified Code(s): D50.9 - Iron deficiency anemia, unspecified (9) Insomnia: QUALIFIERS: Insomnia type: unspecified Qualified Code(s): G47.00 - Insomnia, unspecified (10) Acute on chronic anemia: (11) Diabetes mellitus, type 2: QUALIFIERS: Diabetes mellitus exterminator insulin use: with exterminator use Diabetes mellitus complication status: with other specified compl ication Qualified Code(s): E11.69 - Type 2 diabetes mellitus with other sp ecified complication; Z79.4 - intermodal dispatcher (current) use of insulin (12) Anxiety and depression: PLAN: She is too drowsy today. Will DC the AM Klonopin and decrease the HS Klonopin to 0.5 mg. Continue the current doses of Seroquel. MBS today I encouraged her to shower with OT so that they may see what she needs help with. She wants to go home from the hospital and I told her she has to start getting more active and allow the therapists to assess her. She agreed. I feel she likely had aspiration PNA last week because the cough started 1 day after she was given Grider water and she has very poor dentition and does not allow nursing or ST to do appropriate mouth care. No more catheters...this was written as an order in nursing communication Finish 7 days of Rocephin for treatment of acute cystitis At this time she would not be safe to go home by herself. Underlying TBI and cognitive dysfunction impairs her ability to do therapy Visit Charges Inpatient E&M: 28349 Subs Hosp L2
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
[2021-04-19] MEDS: Ascorbic Acid 500 MG Tablet PO (16:22)
[2021-04-19] MEDS: Acetaminophen 325 MG Tablet 650 MG PO (19:26)
[2021-04-19] MEDS: QUEtiapine 25 MG Tablet 50 MG PO (19:27)
[2021-04-19 19:39] VITALS: BP 133/73; PULSE 91; RESP 16; TEMP 36.8; O2SAT 96
[2021-04-19] MEDS: Atorvastatin Calcium 40 MG Tablet PO (21:13)
[2021-04-20 05:00] VITALS: BMI 26.2
[2021-04-20] MEDS: Arthritis Pain Compound 60 CLICK TUBE TOPICAL ×3 (05:35→20:34)
[2021-04-20] MEDS: Enoxaparin 40 MG/0.4 ML Syringe SC (05:35)
[2021-04-20 06:46] LABS: Bedside Glucose 74 mg/dL (70-110)
[2021-04-20 07:20] VITALS: O2SAT 98
[2021-04-20 07:42] VITALS: BP 117/70; PULSE 78; RESP 18; TEMP 36.5; O2SAT 98
[2021-04-20] MEDS: Ipratropium Bromide 0.06% NASAL SPRAY 2 SPRAY NASAL ×2 (08:06→20:35)
[2021-04-20 08:07] VITALS: BP 117/70; PULSE 78
[2021-04-20] MEDS: Magnesium Chloride 64 MG Delay Rel.Tablet 128 MG PO ×2 (08:07→20:35)
[2021-04-20] MEDS: Metoprolol(XL)Succ 25 MG Tablet PO (08:07)
[2021-04-20] MEDS: DULoxetine Hcl 60 MG Capsule PO (08:07)
[2021-04-20] MEDS: Clopidogrel Bisulfate 75 MG Tablet PO (08:07)
[2021-04-20] MEDS: Lisinopril 20 MG Tablet PO (08:07)
[2021-04-20] MEDS: Aspirin 81 MG TAB.CHEW PO (08:08)
[2021-04-20] MEDS: Potassium Chloride Oral Tablet 20 MEQ PO (08:08)
[2021-04-20] MEDS: Pantoprazole Sodium 40 MG Tablet PO (08:08)
[2021-04-20] MEDS: metFORMIN HCl 500 MG Tablet PO ×2 (08:08→16:43)
[2021-04-20] MEDS: QUEtiapine 25 MG Tablet PO (08:08)
[2021-04-20] MEDS: Iron Polysaccharide Complex 150 MG CAPSULE PO ×2 (08:08→16:43)
[2021-04-20 08:56] VITALS: BMI 26.2
[2021-04-20] MEDS: Acetaminophen 325 MG Tablet 650 MG PO (09:12)
[2021-04-20] MEDS: Ceftriaxone 1 GM/50 ML BAG IV (10:15)
[2021-04-20] MEDS: 0.9% Saline Lock 10 ML Syringe IV ×3 (10:16→20:12)
[2021-04-20] MEDS: Ascorbic Acid 500 MG Tablet PO (16:43)
[2021-04-20 19:06] VITALS: BP 136/77; PULSE 85; RESP 16; TEMP 36.4; O2SAT 95
[2021-04-20 19:51] LABS: Bedside Glucose 115 mg/dL (70-110)
[2021-04-20 19:58] VITALS: BMI 26.2
[2021-04-20] MEDS: QUEtiapine 25 MG Tablet 50 MG PO (20:27)
[2021-04-20] MEDS: clonazePAM 0.5 MG Tablet PO (20:35)
[2021-04-20] MEDS: Atorvastatin Calcium 40 MG Tablet PO (20:35)
[2021-04-20 20:39] VITALS: PULSE 79; RESP 16
[2021-04-20 21:40] VITALS: PULSE 74; RESP 16
[2021-04-20] MEDS: Albuterol 2.5 MG/3 ML VIAL.NEB. INHALATION (21:40)
[2021-04-21] MEDS: Arthritis Pain Compound 60 CLICK TUBE TOPICAL ×3 (06:29→20:23)
[2021-04-21] MEDS: Enoxaparin 40 MG/0.4 ML Syringe SC (06:31)
[2021-04-21 06:35] LABS: Bedside Glucose 76 mg/dL (70-110)
[2021-04-21] MEDS: Potassium Chloride Oral Tablet 20 MEQ PO (07:29)
[2021-04-21] MEDS: Iron Polysaccharide Complex 150 MG CAPSULE PO ×2 (07:30→15:56)
[2021-04-21] MEDS: Aspirin 81 MG TAB.CHEW PO (07:30)
[2021-04-21] MEDS: DULoxetine Hcl 60 MG Capsule PO (07:31)
[2021-04-21] MEDS: metFORMIN HCl 500 MG Tablet PO ×2 (07:31→15:56)
[2021-04-21] MEDS: Ipratropium Bromide 0.06% NASAL SPRAY 2 SPRAY NASAL ×2 (07:31→20:24)
[2021-04-21] MEDS: Magnesium Chloride 64 MG Delay Rel.Tablet 128 MG PO ×2 (07:32→20:27)
[2021-04-21] MEDS: Pantoprazole Sodium 40 MG Tablet PO (07:32)
[2021-04-21] MEDS: Clopidogrel Bisulfate 75 MG Tablet PO (07:32)
[2021-04-21 07:33] VITALS: PULSE 86
[2021-04-21] MEDS: QUEtiapine 25 MG Tablet PO (07:33)
[2021-04-21] MEDS: Metoprolol(XL)Succ 25 MG Tablet PO (07:33)
[2021-04-21] MEDS: Lisinopril 20 MG Tablet PO (07:33)
[2021-04-21 08:30] VITALS: BP 122/85; PULSE 86; RESP 16; TEMP 36.4; O2SAT 100
[2021-04-21] MEDS: Ceftriaxone 1 GM/50 ML BAG IV (09:54)
[2021-04-21] MEDS: 0.9% Saline Lock 10 ML Syringe IV ×2 (09:57→20:41)
[2021-04-21 10:27] VITALS: BMI 26.2
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
--- NOTE | 2021-04-21 12:03 | EKG12_ITS ---
Test Reason : SEREQUEL FOLLOW UP Blood Pressure : / mmHG Vent. Rate : 097 BPM Atrial Rate : 097 BPM P-R Int : 134 ms QRS Dur : 092 ms QT Int : 346 ms P-R-T Axes : 053 -22 129 degrees QTc Int : 439 ms Sinus rhythm with occasional Premature ventricular complexes Left ventricular hypertrophy ST & T wave abnormality, consider lateral ischemia Abnormal ECG Confirmed by YEMI MEADE, JEAN CARLOS ([id number]), art editor REYNA WHITMORE ([id number]) on 04/23/2021 10:32:34 AM Referred By: Leandra Rodaret Confirmed By:JEAN CARLOS BRAGG MD
[2021-04-21] MEDS: Saliva Substitute 237 ML BOTTLE 15 ML MUCOUS MEM (12:30)
[2021-04-21] MEDS: Ascorbic Acid 500 MG Tablet PO (15:56)
[2021-04-21 19:14] VITALS: BP 156/98; PULSE 92; RESP 18; TEMP 36.4; O2SAT 98
[2021-04-21 20:01] LABS: Bedside Glucose 112 mg/dL (70-110)
--- NOTE | 2021-04-21 20:10 | NURSING ---
Pt stated the she would just give in when asked to allow staff for oral assessment. Staff attempted to reassure pt of importance of oral inspection to assess cavity for any needs such as tongue ulcers. Pt agreed and allowed assessment.
[2021-04-21 20:13] VITALS: BMI 26.2
[2021-04-21] MEDS: QUEtiapine 25 MG Tablet 75 MG PO (20:22)
[2021-04-21] MEDS: clonazePAM 0.5 MG Tablet PO (20:25)
[2021-04-21] MEDS: Atorvastatin Calcium 40 MG Tablet PO (20:27)
[2021-04-21 20:44] VITALS: PULSE 92; RESP 16; O2SAT 98
--- NOTE | 2021-04-21 20:51 | NURSING ---
Fluids encouraged while staff is in room. Pt refused offer of Biotene PRN rinse this hs. Bilat feet elevated on pillow while resting. Pt confided in haunting memories of childhood that may be contributing to pt's reservations with care and motivation.
[2021-04-21 21:52] VITALS: PULSE 97; RESP 18
[2021-04-21] MEDS: Albuterol 2.5 MG/3 ML VIAL.NEB. INHALATION (21:52)
[2021-04-22] MEDS: Arthritis Pain Compound 60 CLICK TUBE TOPICAL ×3 (06:23→21:50)
[2021-04-22] MEDS: Enoxaparin 40 MG/0.4 ML Syringe SC (06:23)
[2021-04-22 06:35] LABS: Bedside Glucose 66 mg/dL (70-110)
[2021-04-22 06:58] VITALS: BP 112/70; PULSE 82; RESP 16; TEMP 36.5; O2SAT 98
[2021-04-22 07:06] LABS: Bedside Glucose 117 mg/dL (70-110)
[2021-04-22] MEDS: metFORMIN HCl 500 MG Tablet PO ×2 (08:03→17:52)
[2021-04-22] MEDS: Iron Polysaccharide Complex 150 MG CAPSULE PO ×2 (08:03→17:52)
[2021-04-22] MEDS: Aspirin 81 MG TAB.CHEW PO (08:03)
[2021-04-22] MEDS: Potassium Chloride Oral Tablet 20 MEQ PO (08:04)
[2021-04-22] MEDS: Magnesium Chloride 64 MG Delay Rel.Tablet 128 MG PO ×2 (08:05→21:52)
[2021-04-22] MEDS: DULoxetine Hcl 60 MG Capsule PO (08:05)
[2021-04-22] MEDS: Ipratropium Bromide 0.06% NASAL SPRAY 2 SPRAY NASAL ×2 (08:05→21:51)
[2021-04-22 08:06] VITALS: PULSE 86
[2021-04-22] MEDS: Metoprolol(XL)Succ 25 MG Tablet PO (08:06)
[2021-04-22] MEDS: Lisinopril 20 MG Tablet PO (08:06)
[2021-04-22] MEDS: QUEtiapine 25 MG Tablet PO (08:06)
[2021-04-22] MEDS: Pantoprazole Sodium 40 MG Tablet PO (08:06)
[2021-04-22] MEDS: Clopidogrel Bisulfate 75 MG Tablet PO (08:06)
--- NOTE | 2021-04-22 09:55 | CASEMGMT ---
Addendum entered by Edilia Fernández 04/23/21 12:12: Dtr requested referrals to [facility] and [facility]. [facility] is not in network with [facility]. [facility] still reviewing. Addendum entered by Edilia Fernández 04/23/21 08:54: [facility] is unable to accept. Contacted dtr for other choices. She states she is meeting with her family in a few hours to discuss and will contact [facility] with other choices. Will continue to follow. Original Note: Social Work Followed up with dtr to inquire about SNF choice. Dtr requested [facility]. Referral made. Will continue to follow. ODALIS Johnson
[2021-04-22] MEDS: Ceftriaxone 1 GM/50 ML BAG IV (10:09)
--- NOTE | 2021-04-22 10:12 | NURSING ---
fluids encouraged at this time. while this RN is in pt room, this RN gives pt 150 ml of water. pt drinks water while this RN is present. pt educated on the importance of hydration and drinking water even though she has no desire to drink at this time. pt states understanding of the situation and education. pt call light is within reach and functional . pt denies questions or concerns at this time.
[2021-04-22 10:15] VITALS: BMI 26.2
[2021-04-22] MEDS: Ascorbic Acid 500 MG Tablet PO (17:53)
[2021-04-22 19:40] VITALS: BP 148/86; PULSE 94; RESP 16; TEMP 36.7; O2SAT 98
[2021-04-22 20:36] LABS: Bedside Glucose 107 mg/dL (70-110)
[2021-04-22] MEDS: QUEtiapine 25 MG Tablet 75 MG PO (20:42)
[2021-04-22 21:30] VITALS: BMI 26.2
[2021-04-22] MEDS: clonazePAM 0.5 MG Tablet PO (21:51)
[2021-04-22] MEDS: Atorvastatin Calcium 40 MG Tablet PO (21:52)
[2021-04-22 22:00] VITALS: PULSE 86; RESP 16; O2SAT 99
[2021-04-22] MEDS: 0.9% Saline Lock 10 ML Syringe IV (22:05)
[2021-04-23] VITALS (7 sets, daily range): BP systolic 76–176; BP diastolic 45–101; PULSE 75–98; RESP 14–20; TEMP 36.1–36.7; O2SAT 94–99; BMI 26.2
[2021-04-23] MEDS: Enoxaparin 40 MG/0.4 ML Syringe SC (06:07)
[2021-04-23] MEDS: Arthritis Pain Compound 60 CLICK TUBE TOPICAL (06:07)
[2021-04-23 06:36] LABS: Bedside Glucose 113 mg/dL (70-110)
[2021-04-23] MEDS: Iron Polysaccharide Complex 150 MG CAPSULE PO ×2 (08:52→16:01)
[2021-04-23] MEDS: Potassium Chloride Oral Tablet 20 MEQ PO (08:52)
[2021-04-23] MEDS: Aspirin 81 MG TAB.CHEW PO (08:52)
[2021-04-23] MEDS: QUEtiapine 25 MG Tablet PO (08:54)
[2021-04-23] MEDS: metFORMIN HCl 500 MG Tablet PO ×2 (08:54→16:01)
[2021-04-23] MEDS: DULoxetine Hcl 60 MG Capsule PO (08:54)
[2021-04-23] MEDS: Metoprolol(XL)Succ 25 MG Tablet PO (08:54)
[2021-04-23] MEDS: Clopidogrel Bisulfate 75 MG Tablet PO (08:55)
[2021-04-23] MEDS: Pantoprazole Sodium 40 MG Tablet PO (08:55)
[2021-04-23] MEDS: Lisinopril 20 MG Tablet PO (08:55)
[2021-04-23] MEDS: Ipratropium Bromide 0.06% NASAL SPRAY 2 SPRAY NASAL ×2 (08:56→21:17)
[2021-04-23] MEDS: Magnesium Chloride 64 MG Delay Rel.Tablet 128 MG PO ×2 (08:56→21:17)
[2021-04-23] MEDS: Ceftriaxone 1 GM/50 ML BAG IV (09:10)
--- NOTE | 2021-04-23 14:37 | PN_ITS ---
Subjective Subjective Afebrile VSS-blood pressure has been mildly elevated the past few times it was taken. It seems to go up when she is anxious. Maintaining appropriate oxygen saturation on RA Oral intake is poor Discussed with nursing - no problems that need addressed Reviewed the PT/OT/ST notes Medication list reviewed. The blood sugar record was reviewed. Lantus was recently decreased to 5 units nightly and the hypoglycemia in the morning has resolved. The fasting blood sugar today is 113. There are no blood sugars greater than 150 Recent EKG showed a normal QT interval. She is sleeping well at night with the increase in Seroquel to 75 mg nightly. She is still getting very anxious at times. The occupational therapist attempted to take her down to TCU to play the piano however she became very anxious about this and did not want to play in front of anyone else. Objective Data Objective Data Vital Signs: Vital Signs Temp Pulse Resp BP Pulse Ox 97.0 F L 75 16 141/86 H 96 04/23/21 07:22 04/23/21 08:54 04/23/21 07:22 04/23/21 07:22 04/23/21 07:22 Oxygen Flow Rate (L/min) 2 Oxygen Delivery Method Room Air Weight: 165 lb 2.02 oz Body Mass Index (BMI) 26.2 Intake & Output: Intake and Output for Last 24 Hours 04/21/21 04/22/21 04/23/21 23:59 23:59 23:59 Intake Total 810 / 810 620 / 620 390 / 390 Output Total 1000 / 1000 Balance -190 / -190 619 / 619 390 / 390 Lab / Micro Data Result Diagrams: 04/17/21 17:18 04/15/21 11:14 Labs: Laboratory Results - last 24 hr 04/22/21 04/23/21 20:20 06:28 POC Glucose 107 113 H Micro: Microbiology 04/15/21 07:45 Urine, Random Urine Culture - Final Enterobacter aerogenes Physical Exam Const alert, oriented x3 and no apparent distress General Appearance: cooperative Resp normal respiratory effort and clear to auscultation bilaterally Cardio regular rate, regular rhythm and no gallops GI normal to inspection, nondistended, normoactive bowel sounds, soft to palpation and non-tender Extremity General Extremity: Negative for edema Skin Rashes: no rashes Assessment & Plan Assessment/Plan (1) Acute ischemic left MCA stroke: (2) Debility: (3) Diabetes mellitus, type 2: QUALIFIERS: 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 Destination at discharge to be determined going forward after talking with Bonnie and her daughter Patito. Anxiety is under much better control and she is sleeping well at night. We will continue current doses of Seroquel. Visit Charges Inpatient E&M: 25493 Subs Hosp L2
[2021-04-23] MEDS: Ascorbic Acid 500 MG Tablet PO (16:01)
--- NOTE | 2021-04-23 16:30 | PCM.PN.PAL ---
Subjective Subjective Feeling much better. She feels like her physical and mental status have significantly improved. Sleeping well. Tolerating medications ok. She is excited that she walked all the way from her room to the therapy room. We discussed palliative services again, she is wanting to wait till i get home and see how it goes. Objective Data Objective Data Vital Signs: Vital Signs Temp Pulse Resp BP Pulse Ox 97.1 F L 93 18 119/72 98 04/24/21 07:30 04/24/21 08:25 04/24/21 07:30 04/24/21 08:25 04/24/21 07:30 Oxygen Flow Rate (L/min) 2 Oxygen Delivery Method Room Air Weight: 74.9 kg Body Mass Index (BMI) 26.2 Intake & Output: Intake and Output for Last 24 Hours 04/22/21 04/23/21 04/24/21 23:59 23:59 23:59 Intake Total 620 / 620 1290 / 1290 Output Total Balance 619 / 619 1290 / 1290 Lab / Micro Data Result Diagrams: 04/17/21 17:18 04/15/21 11:14 Labs: Laboratory Results - last 24 hr 04/23/21 04/24/21 21:06 05:41 POC Glucose 94 101 Micro: Microbiology 04/15/21 07:45 Urine, Random Urine Culture - Final Enterobacter aerogenes Physical Exam Narrative Appears overall more alert, enthusiastic, engaged. Good color. CTA, dimin. BS + x4. No edema. No change in neuro status. Const alert and oriented x3 General Appearance: cooperative Orientation / Consciousness: oriented to person, oriented to place and oriented to time HEENT normocephalic and head/scalp atraumatic Neck supple General: trachea midline Resp normal respiratory effort Effort and Inspection: able to speak in complete sentences Auscultation: diminished lung sounds Cardio S1 normal heart sound and S2 normal heart sound GI normal to inspection, nondistended, normoactive bowel sounds Auscultation: normoactive bowel sounds Neuro oriented x3 and moves all extremities Psych cooperative and denies hallucinations Appearance: appropriate Attitude: calm Activity / Motor Behavior: appropriate eye contact Speech: normal speech Assessment & Plan Assessment/Plan (1) Anxiety and depression: (2) Debility: (3) Chronic pain disorder: (4) Opioid dependence: (5) Neuropathic pain: (6) Insomnia: QUALIFIERS: Insomnia type: unspecified Qualified Code(s): G47.00 - Insomnia, unspecified (7) Acute ischemic left MCA stroke: (8) Acute on chronic anemia: (9) Diabetes mellitus, type 2: QUALIFIERS: Diabetes mellitus parts counterman insulin use: with custodial use Diabetes mellitus complication status: with other specified complication Qualified Code(s): E11.69 - Type 2 diabetes mellitus with other specified complication; Z79.4 - ferry terminal agent (current) use of insulin (10) Iron deficiency anemia: QUALIFIERS: Iron deficiency anemia type: unspecified iron deficiency Qualified Code(s): D50.9 - Iron deficiency anemia, unspecified (11) Congestive heart failure: (12) Right foot drop: (13) Hypertension: QUALIFIERS: Hypertension type: essential hypertension Qualified Code(s): I10 - Essential (primary) hypertension (14) Benzodiazepine dependence: (15) Poor dentition: (16) Dysphagia as late effect of cerebrovascular accident (CVA): (17) Tachycardia: (18) Chronic renal failure, stage 2 (mild): (19) Sleep-disordered breathing: PLAN: 80-year-old female being seen today for palliative care follow up 2/2 severe anxiety and panic disorder, opioid and benzodiazepine dependence, s/p CVA now in rehab for continued therapy to hopefully regain function. ?Agree with the attending, would not restart any opioids. Would continue with topical cold arthritic cream, Tylenol PRN, conservative modalities such as ice, heat, massage. We could try switching to Tylenol ER scheduled if not getting any relief from chronic hip pain. Improving. ?I suspect her pain will get better once she is participating regularly in extensive counseling and psychiatric care. ?Agree with Seroquel at bedtime, may still need to titrate up for optimal effect, possibly add daytime dose if tolerating well. Titrate up as needed. ? There are plans to wean clonazepam after increasing seroquel, she should establish with new psychiatrist, would collaborate adjusting medications with them. ?She is hesitant to accept any palliative care at this time, would like to contact us if needed. -she is now on Augmentin for suspected aspiration PNA, possible MBS Thursday 04/19. -We will sign off from palliative perspective as pt has declined services. Please do not hesitate to contact palliative with any questions or concerns at [phone].
[2021-04-23] MEDS: QUEtiapine 25 MG Tablet 75 MG PO (21:00)
[2021-04-23] MEDS: busPIRone 5 MG Tablet PO (21:17)
[2021-04-23] MEDS: Atorvastatin Calcium 40 MG Tablet PO (21:17)
[2021-04-23] MEDS: clonazePAM 0.5 MG Tablet PO (21:20)
[2021-04-23 22:05] LABS: Bedside Glucose 94 mg/dL (70-110)
[2021-04-24] VITALS: BP 97/61; PULSE 88; RESP 18; TEMP 36.7; O2SAT 100
--- NOTE | 2021-04-24 01:13 | NURSING ---
Pt bp elevated at shift change. 153/96. BP retake at 2114 was 176/101, hr 95. BP remains elevated. Pt is anxious. Medicated pt with seroquel, buspar and klonopin as ordered. Bp recheck at 5. Noted to be low, several readings taken. 70/46, 82/48. 68/44. Unable to obtain a manual BP. Pt IV in l arm not flushing. #20 g restarted in r fa x 1 stick. Pt sleepy but arousable, alert and orientated, denies dizziness, skin warm and dry. Pt placed in trendelenburg. Call placed to hospitalist at 2330. Updated on pt condition and reviewed meds. At this time no new orders obtained. Will cont to monitor pt per Dr Coles, Hospitalist. If any change in pt condition this nurse is to call Update; 0000 BP 97/61. HR 88. Sp02 100%. Pt denies any symptoms. Pt remains in trendelenburg. 0100; BP 96/58. HR 87, SPO2 100%. Pt denies any symptoms. Pt taken out of trendelenburg and sleeping.
[2021-04-24] MEDS: busPIRone 5 MG Tablet PO ×3 (05:32→21:02)
[2021-04-24] MEDS: Enoxaparin 40 MG/0.4 ML Syringe SC (05:33)
[2021-04-24 05:51] LABS: Bedside Glucose 101 mg/dL (70-110)
[2021-04-24 07:30] VITALS: BP 127/81; PULSE 85; RESP 18; TEMP 36.2; O2SAT 98
[2021-04-24] MEDS: Aspirin 81 MG TAB.CHEW PO (08:00)
[2021-04-24] MEDS: Clopidogrel Bisulfate 75 MG Tablet PO (08:00)
[2021-04-24] MEDS: DULoxetine Hcl 60 MG Capsule PO (08:00)
[2021-04-24] MEDS: Magnesium Chloride 64 MG Delay Rel.Tablet 128 MG PO ×2 (08:00→21:00)
[2021-04-24] MEDS: Lisinopril 20 MG Tablet PO (08:00)
[2021-04-24] MEDS: Pantoprazole Sodium 40 MG Tablet PO (08:00)
[2021-04-24] MEDS: metFORMIN HCl 500 MG Tablet PO ×2 (08:02→16:09)
[2021-04-24] MEDS: Iron Polysaccharide Complex 150 MG CAPSULE PO ×2 (08:02→15:45)
[2021-04-24] MEDS: Potassium Chloride Oral Tablet 20 MEQ PO (08:03)
[2021-04-24] MEDS: QUEtiapine 25 MG Tablet PO (08:03)
[2021-04-24] MEDS: Acetaminophen 325 MG Tablet 650 MG PO (08:18)
[2021-04-24 08:19] VITALS: PULSE 93
[2021-04-24] MEDS: Ipratropium Bromide 0.06% NASAL SPRAY 2 SPRAY NASAL ×2 (08:19→21:02)
[2021-04-24] MEDS: Metoprolol(XL)Succ 25 MG Tablet PO (08:19)
[2021-04-24 08:25] VITALS: BP 119/72; PULSE 93
[2021-04-24 13:00] VITALS: BP 122/64
--- NOTE | 2021-04-24 13:30 | NURSING ---
Dr. Rodarte aware of BP readings from last night and today. Unknown pattern of different BP readings but patient is fine today and no hypotension noted or c/o dizziness. Patient taking in good fluids. NNO's.
[2021-04-24] MEDS: Ascorbic Acid 500 MG Tablet PO (15:45)
[2021-04-24 15:57] VITALS: BMI 26.2
[2021-04-24 19:30] VITALS: BP 139/82; PULSE 85; RESP 16; TEMP 36.1; O2SAT 98
[2021-04-24] MEDS: QUEtiapine 25 MG Tablet 75 MG PO (19:53)
[2021-04-24] MEDS: 0.9% Saline Lock 10 ML Syringe IV (19:53)
[2021-04-24 20:50] LABS: Bedside Glucose 100 mg/dL (70-110)
[2021-04-24] MEDS: Atorvastatin Calcium 40 MG Tablet PO (21:00)
[2021-04-24] MEDS: clonazePAM 0.5 MG Tablet PO (21:01)
[2021-04-24] MEDS: Arthritis Pain Compound 60 CLICK TUBE TOPICAL (21:02)
[2021-04-25 05:00] VITALS: BMI 26.2
[2021-04-25] MEDS: busPIRone 5 MG Tablet PO ×3 (05:48→21:50)
[2021-04-25] MEDS: Enoxaparin 40 MG/0.4 ML Syringe SC (05:48)
[2021-04-25] MEDS: Arthritis Pain Compound 60 CLICK TUBE TOPICAL (05:48)
[2021-04-25 06:40] LABS: Bedside Glucose 92 mg/dL (70-110)
[2021-04-25] MEDS: Potassium Chloride Oral Tablet 20 MEQ PO (07:32)
[2021-04-25] MEDS: Clopidogrel Bisulfate 75 MG Tablet PO (07:32)
[2021-04-25] MEDS: Magnesium Chloride 64 MG Delay Rel.Tablet 128 MG PO ×2 (07:32→21:52)
[2021-04-25] MEDS: Pantoprazole Sodium 40 MG Tablet PO (07:32)
[2021-04-25] MEDS: metFORMIN HCl 500 MG Tablet PO ×2 (07:32→17:29)
[2021-04-25] MEDS: QUEtiapine 25 MG Tablet PO (07:33)
[2021-04-25] MEDS: Aspirin 81 MG TAB.CHEW PO (07:33)
[2021-04-25] MEDS: Iron Polysaccharide Complex 150 MG CAPSULE PO ×2 (07:34→17:29)
[2021-04-25] MEDS: Ipratropium Bromide 0.06% NASAL SPRAY 2 SPRAY NASAL ×2 (07:34→21:50)
[2021-04-25] MEDS: DULoxetine Hcl 60 MG Capsule PO (07:36)
[2021-04-25] MEDS: Lisinopril 20 MG Tablet PO (07:36)
[2021-04-25 07:37] VITALS: PULSE 88
[2021-04-25] MEDS: Metoprolol(XL)Succ 25 MG Tablet PO (07:37)
[2021-04-25 08:00] VITALS: BP 122/77; PULSE 79; RESP 15; TEMP 36.2; O2SAT 95
[2021-04-25 15:23] VITALS: BMI 26.2
[2021-04-25] MEDS: Ascorbic Acid 500 MG Tablet PO (17:29)
[2021-04-25 19:30] VITALS: BP 139/87; PULSE 84; RESP 18; TEMP 36.4; O2SAT 98
[2021-04-25] MEDS: QUEtiapine 25 MG Tablet 75 MG PO (19:48)
[2021-04-25 20:06] LABS: Bedside Glucose 103 mg/dL (70-110)
[2021-04-25 21:13] VITALS: BMI 26.2
[2021-04-25] MEDS: clonazePAM 0.5 MG Tablet PO (21:50)
[2021-04-25] MEDS: Atorvastatin Calcium 40 MG Tablet PO (21:52)
[2021-04-25] MEDS: 0.9% Saline Lock 10 ML Syringe IV (21:52)
[2021-04-26] MEDS: Acetaminophen 325 MG Tablet 650 MG PO (05:24)
[2021-04-26] MEDS: Enoxaparin 40 MG/0.4 ML Syringe SC (05:27)
[2021-04-26] MEDS: busPIRone 5 MG Tablet PO ×3 (05:27→20:53)
[2021-04-26 06:21] LABS: Bedside Glucose 82 mg/dL (70-110)
[2021-04-26] MEDS: metFORMIN HCl 500 MG Tablet PO ×2 (08:06→16:27)
[2021-04-26] MEDS: Iron Polysaccharide Complex 150 MG CAPSULE PO ×2 (08:06→16:26)
[2021-04-26] MEDS: Aspirin 81 MG TAB.CHEW PO (08:06)
[2021-04-26] MEDS: Potassium Chloride Oral Tablet 20 MEQ PO (08:07)
[2021-04-26] MEDS: QUEtiapine 25 MG Tablet PO (08:07)
[2021-04-26] MEDS: Ipratropium Bromide 0.06% NASAL SPRAY 2 SPRAY NASAL ×2 (08:07→20:52)
[2021-04-26] MEDS: DULoxetine Hcl 60 MG Capsule PO (08:07)
[2021-04-26 08:09] VITALS: PULSE 75
[2021-04-26] MEDS: Lisinopril 20 MG Tablet PO (08:09)
[2021-04-26] MEDS: Clopidogrel Bisulfate 75 MG Tablet PO (08:09)
[2021-04-26] MEDS: Magnesium Chloride 64 MG Delay Rel.Tablet 128 MG PO ×2 (08:09→20:54)
[2021-04-26] MEDS: Pantoprazole Sodium 40 MG Tablet PO (08:09)
[2021-04-26] MEDS: Metoprolol(XL)Succ 25 MG Tablet PO (08:09)
[2021-04-26 08:27] VITALS: BP 115/68; PULSE 75; RESP 16; TEMP 36.4; O2SAT 95
[2021-04-26 09:26] VITALS: BMI 26.2
[2021-04-26] MEDS: Arthritis Pain Compound 60 CLICK TUBE TOPICAL (13:44)
[2021-04-26] MEDS: Ascorbic Acid 500 MG Tablet PO (16:27)
--- NOTE | 2021-04-26 16:33 | NURSING ---
Staff encourages fluid intake at this time and pt refuses. staff educates pt on hydration. pt still refuses to take any PO fluids.
[2021-04-26 19:27] VITALS: BP 164/96; PULSE 101; RESP 16; TEMP 36.7; O2SAT 98
[2021-04-26 20:05] VITALS: BMI 26.2
--- NOTE | 2021-04-26 20:14 | NURSING ---
Pt provided Padmini Tamiko for c/o upset stomach. Pt refused Mylanta PRN. Emesis bag provided.
[2021-04-26 20:18] VITALS: PULSE 98; RESP 16
[2021-04-26] MEDS: QUEtiapine 25 MG Tablet 75 MG PO (20:25)
[2021-04-26] MEDS: 0.9% Saline Lock 10 ML Syringe IV (20:34)
[2021-04-26] MEDS: clonazePAM 0.5 MG Tablet PO (20:53)
[2021-04-26] MEDS: Atorvastatin Calcium 40 MG Tablet PO (20:54)
[2021-04-26 21:00] LABS: Bedside Glucose 118 mg/dL (70-110)
[2021-04-27] MEDS: Enoxaparin 40 MG/0.4 ML Syringe SC (05:35)
[2021-04-27] MEDS: busPIRone 5 MG Tablet PO ×3 (05:36→20:22)
[2021-04-27 07:01] VITALS: O2SAT 94
[2021-04-27 07:41] VITALS: BP 137/86; PULSE 96
[2021-04-27] MEDS: Lisinopril 20 MG Tablet PO (07:41)
[2021-04-27] MEDS: Pantoprazole Sodium 40 MG Tablet PO (07:41)
[2021-04-27] MEDS: DULoxetine Hcl 60 MG Capsule PO (07:41)
[2021-04-27] MEDS: Metoprolol(XL)Succ 25 MG Tablet PO (07:41)
[2021-04-27] MEDS: Iron Polysaccharide Complex 150 MG CAPSULE PO ×2 (07:41→16:26)
[2021-04-27] MEDS: Aspirin 81 MG TAB.CHEW PO (07:41)
[2021-04-27] MEDS: metFORMIN HCl 500 MG Tablet PO ×2 (07:41→16:26)
[2021-04-27] MEDS: Ipratropium Bromide 0.06% NASAL SPRAY 2 SPRAY NASAL ×2 (07:42→20:22)
[2021-04-27] MEDS: Potassium Chloride Oral Tablet 20 MEQ PO (07:42)
[2021-04-27] MEDS: Magnesium Chloride 64 MG Delay Rel.Tablet 128 MG PO ×2 (07:42→20:23)
[2021-04-27] MEDS: Clopidogrel Bisulfate 75 MG Tablet PO (07:42)
[2021-04-27] MEDS: QUEtiapine 25 MG Tablet PO (07:42)
[2021-04-27 07:52] VITALS: BP 137/86; PULSE 96; RESP 16; TEMP 36.8; O2SAT 93
[2021-04-27] MEDS: Acetaminophen 325 MG Tablet 650 MG PO (10:14)
--- NOTE | 2021-04-27 10:20 | CASEMGMT ---
Addendum entered by Edilia Fernández 04/27/21 12:13: [facility] accepted pt. Original Note: Social Work IDT met with patient and dtr via conference call for Team meeting. Discussed patient's progress in therapy and nursing. Pt making progress. Discussed pt continued goals to DC home vs SNF. Pt would like to DC home and has spoken to dtr about agreeing to be social, motivated, and continue to work with therapy at DC to maintain strength and improve mood. Pt tends to isolate self at home. IDT still recommending 24/7 care at home. Explained [facility] not in network with [employer] and pt will be responsible for 50% out of pocket cost. [facility] still reviewing referral. Explained NRD with [employer] is 6/4 and continued stay is not guaranteed. Emailed dtr resources for adult day centers and counseling centers. SW to continue to follow. Edilia Fernández, ODALIS GONZALEZW
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
[2021-04-27 11:38] LABS: Bedside Glucose 95 mg/dL (70-110)
[2021-04-27 13:27] VITALS: BMI 26.2
[2021-04-27] MEDS: Ascorbic Acid 500 MG Tablet PO (16:26)
[2021-04-27] MEDS: Bupivacaine 0.5% PF 10 ML VIAL 2 ML INTRAARTIC (17:42)
[2021-04-27] MEDS: Triamcinolone Acetonide 40 MG/ML Vial INTRAARTIC (17:42)
[2021-04-27 19:08] VITALS: BP 136/97; PULSE 90; RESP 18; TEMP 36.4; O2SAT 95
--- NOTE | 2021-04-27 19:15 | PCM.OP.PRO ---
Assessment & Plan Assessment/Plan (1) Right shoulder pain: QUALIFIERS: Chronicity: acute Qualified Code(s): M25.511 - Pain in right shoulder (2) Disorder of right rotator cuff: PLAN: She has failed topical pain relief with a compounded cream containing baclofen, lidocaine and Voltaren. She has limited range of motion and pain with any movement. Will inject the R shoulder with 40 mg of triamcinolone and 2 cc of Marcaine. Procedure Report Date of Procedure: 04/27/21 Site of injection was marked with a purple marker. The area was cleansed with alcohol swabs. Anesthesia was provided for with a topical freezing pain spray. A 22-gauge needle was used to inject the right shoulder with 40 mg of triamcinolone and 2 cc of Marcaine. The patient tolerated the procedure well. I allowed 15 to 20 minutes to elapse and went to reexamine. She had full range of motion in the right shoulder without pain. She cannot lift her right arm above her head without assistance and I suspect that she has a right rotator cuff tear. Procedures Musculoskeletal [id number]: [id number] Drain/inj joint/bursa w/o us (Steroid injection into the right shoulder for right shoulder pain suspected to be secondary to osteoarthritis and suspected right rotator cuff tear.)
[2021-04-27 19:54] VITALS: BMI 26.2
[2021-04-27] MEDS: QUEtiapine 25 MG Tablet 75 MG PO (20:22)
[2021-04-27] MEDS: Atorvastatin Calcium 40 MG Tablet PO (20:23)
[2021-04-27 20:24] VITALS: PULSE 100; RESP 18
[2021-04-27] MEDS: Albuterol 2.5 MG/3 ML VIAL.NEB. INHALATION (20:24)
[2021-04-27] MEDS: clonazePAM 0.5 MG Tablet 0.25 MG PO (20:34)
[2021-04-27 21:06] LABS: Bedside Glucose 103 mg/dL (70-110)
[2021-04-27 22:00] VITALS: PULSE 86; RESP 16
[2021-04-28] MEDS: 0.9% Saline Lock 10 ML Syringe IV ×3 (03:09→20:05)
[2021-04-28] MEDS: busPIRone 5 MG Tablet PO ×3 (05:06→20:01)
[2021-04-28] MEDS: Enoxaparin 40 MG/0.4 ML Syringe SC (05:06)
[2021-04-28 05:42] LABS: Hematocrit 29.7 % (37-47)
[2021-04-28 06:03] LABS: Anion Gap 5 (5-15); BUN 18 mg/dL (7-18); BUN/Creat Ratio 19.7 RATIO (10-20); Calcium,Total 8.7 mg/dL (8.5-10.1); Chloride 104 mmol/L (98-107); Creatinine, Serum 0.91 mg/dL (0.55-1.02); EST Glomerular Filtration Rate 63 mL/min (>60); Est Glom Filt Rate - Afr Amer 77 mL/min (>60); Estimated Creatinine Clearance 49.55 ml/min; Glucose 122 mg/dL (74-106); Potassium 4.6 mmol/L (3.5-5.1); Sodium Level 135 mmol/L (136-145)
[2021-04-28 06:56] LABS: Bedside Glucose 102 mg/dL (70-110)
[2021-04-28 07:21] VITALS: BP 132/86; PULSE 86; RESP 16; TEMP 36.5; O2SAT 96
[2021-04-28 07:33] VITALS: BP 132/86; PULSE 86
[2021-04-28] MEDS: Metoprolol(XL)Succ 25 MG Tablet PO (07:33)
[2021-04-28] MEDS: DULoxetine Hcl 60 MG Capsule PO (07:33)
[2021-04-28] MEDS: QUEtiapine 25 MG Tablet PO (07:34)
[2021-04-28] MEDS: Clopidogrel Bisulfate 75 MG Tablet PO (07:34)
[2021-04-28] MEDS: Magnesium Chloride 64 MG Delay Rel.Tablet 128 MG PO ×2 (07:34→20:03)
[2021-04-28] MEDS: Lisinopril 20 MG Tablet PO (07:34)
[2021-04-28] MEDS: Aspirin 81 MG TAB.CHEW PO (07:34)
[2021-04-28] MEDS: Potassium Chloride Oral Tablet 20 MEQ PO (07:34)
[2021-04-28] MEDS: Ipratropium Bromide 0.06% NASAL SPRAY 2 SPRAY NASAL (07:35)
[2021-04-28] MEDS: Pantoprazole Sodium 40 MG Tablet PO (07:35)
[2021-04-28] MEDS: Iron Polysaccharide Complex 150 MG CAPSULE PO ×2 (07:35→16:04)
[2021-04-28] MEDS: metFORMIN HCl 500 MG Tablet PO ×2 (07:36→16:04)
--- NOTE | 2021-04-28 08:51 | PCM.PROGNOTE ---
Subjective Subjective Afebrile VSS - BP was previously well controlled. Since the evening of 04/26 the BP have been mildly elevated. Diastolics have been consistently > 85. Maintaining appropriate oxygen saturation on RA Oral intake was 1100 orally yesterday Discussed with nursing - no problems that need addressed Reviewed the PT/OT/ST notes Medication list reviewed. All lab was personally reviewed. Hemoglobin is 9.0. Sodium is mildly decreased at 135. Potassium is 4.6. Creatinine is good at 0.91. Calcium is within normal limits. Bonnie tells me that she continues to have pain in her shoulder following the steroid injection last night. I told her that it was a good sign that the pain went completely away 15-20 minutes after the injection (due to the Marcaine injected into the joint with the Triamcinolone) because this means that the medication was in the joint space. I also told her that it can take 48-72 hours for the steroid to take effect. She tells me that she does not feel the arthritic cream is helping......so we will DC. I think she needs an MRI to look at the rotator cuff which I suspect is torn but, she would not consider having surgery so it is likely a moot point. She is sleeping well and she has been getting up for meals. Objective Data Objective Data Vital Signs: Vital Signs Temp Pulse Resp BP Pulse Ox 97.7 F L 86 16 132/86 H 96 04/28/21 07:21 04/28/21 07:33 04/28/21 07:21 04/28/21 07:33 04/28/21 07:21 Oxygen Flow Rate (L/min) 2 Oxygen Delivery Method Room Air Weight: 165 lb 2.02 oz Body Mass Index (BMI) 26.2 Intake & Output: Intake and Output for Last 24 Hours 04/26/21 04/27/21 04/28/21 23:59 23:59 23:59 Intake Total 600 / 600 1100 / 1100 240 / 240 Balance 600 / 600 1100 / 1100 240 / 240 Lab / Micro Data Result Diagrams: 04/28/21 05:32 04/28/21 05:32 Labs: Laboratory Results - last 24 hr 04/27/21 04/27/21 04/28/21 06:35 20:42 05:32 Hgb 9.0 L Hct 29.7 L Sodium Potassium Chloride Carbon Dioxide Anion Gap BUN Creatinine Estim Creat Clear Calc Est GFR (MDRD) Af Amer Est GFR (MDRD) Non-Af BUN/Creatinine Ratio Glucose Calcium POC Glucose 95 103 04/28/21 04/28/21 05:32 06:43 Hgb Hct Sodium 135 L Potassium 4.6 Chloride 104 Carbon Dioxide 26.0 Anion Gap 5 BUN 18 Creatinine 0.91 Estim Creat Clear Calc 49.55 Est GFR (MDRD) Af Amer 77 Est GFR (MDRD) Non-Af 63 BUN/Creatinine Ratio 19.7 Glucose 122 H Calcium 8.7 POC Glucose 102 Micro: Microbiology 04/15/21 07:45 Urine, Random Urine Culture - Final Enterobacter aerogenes Physical Exam Const alert and oriented x3 General Appearance: cooperative HEENT Mouth: dry mucous membranes Resp normal respiratory effort, normal air movement and clear to auscultation bilaterally Resp Narrative: She has cough yet but the lungs are CTA when I listen but, she is not coughing at the time. She does not think that the Atrovent nasal spray is helping. She tells me that the cough is due to chronic bronchitis.....she coughs more when she lies down. Cardio regular rate, regular rhythm, S1 normal heart sound, S2 normal heart sound and no gallops GI normal to inspection, nondistended, normoactive bowel sounds, soft to palpation and non-tender Extremity General Extremity: Negative for edema Skin General Skin Exam: no breakdown Rashes: no rashes Neuro Neuro Narrative: less R facial droop. Psych Psych Narrative: Anxiety is much better with the addition of the Seroquel and the Buspar to her drug regimen. The benzo's have been weaned down to Klonopin 0.25mg Q HS. Assessment & Plan Assessment/Plan (1) Acute ischemic left MCA stroke: PLAN: Continue PT/OT/ST (2) Debility: PLAN: Making good progress with therapy. She has elected to go home with home health care at discharge. (3) Patent foramen ovale: PLAN: She needs a 30-day event monitor at discharge to rule out atrial fibrillation as the etiology of the stroke. If she does not have atrial fibrillation I suspect she needs referred to interventional cardiology to close the PFO. (4) Benzodiazepine dependence: PLAN: She is almost off benzodiazepines. Currently only 0.25 mg at at bedtime. The plan is to discontinue at discharge. (5) Anxiety and depression: PLAN: Much better control of anxiety with Seroquel and BuSpar. (6) Insomnia: QUALIFIERS: Insomnia type: unspecified Qualified Code(s): G47.00 - Insomnia, unspecified PLAN: She is sleeping well on 75 mg of Seroquel at bedtime along with 0.25 mg of Klonopin which I intend to discontinue prior to discharge. If insomnia recurs will increase the Seroquel to 100 mg at bedtime. (7) Right shoulder pain: QUALIFIERS: Chronicity: acute Qualified Code(s): M25.511 - Pain in right shoulder PLAN: Steroid injection on 04/27/2021. 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 The at bedtime dose of Lantus has been discontinued and the blood sugars are excellent. Visit Charges Inpatient E&M: 24250 Subs Hosp L2
[2021-04-28 11:40] VITALS: BMI 26.2
--- NOTE | 2021-04-28 14:43 | CHAPLAIN ---
Type of Pastoral Visit _x__ Initial Visit ___ Follow-up Visit ___ On-call Visit ___ General Patient Visit ___ Spiritual Assessment ___ Family Conference ___ Bereavement ___ Rapid Response ___ Code Blue ___ Other (describe below) Pastoral Care Referral From ___ Patient ___ Family _x__ Nurse ___ Physician ___ Payroll Supervisor ___ Institution Director ___ Other (describe below) Sacrament/Intervention _x__ Active listening ___ Anointing ___ Islam ___ Bereavement ___ Communion ___ Tete exploration ___ _x__ Life review _x__ Prayer ___ Reconciliation ___ Sacrament of Sick _x__ Supportive presence ___ Wedding ___ Other (describe below) Pastoral Comments
[2021-04-28] MEDS: Ascorbic Acid 500 MG Tablet PO (16:04)
[2021-04-28] MEDS: QUEtiapine 25 MG Tablet 75 MG PO (20:00)
[2021-04-28] MEDS: Fluticasone/Salmeterol 232-14 Inhaler 1 PUFF INHALATION (20:02)
[2021-04-28] MEDS: clonazePAM 0.5 MG Tablet 0.25 MG PO (20:02)
[2021-04-28] MEDS: Atorvastatin Calcium 40 MG Tablet PO (20:03)
[2021-04-28 20:15] VITALS: BP 158/92; PULSE 91; RESP 16; TEMP 36.8; O2SAT 98
[2021-04-28 20:40] LABS: Bedside Glucose 145 mg/dL (70-110)
[2021-04-28 21:40] VITALS: BMI 26.2
[2021-04-29] MEDS: busPIRone 5 MG Tablet PO (05:36)
[2021-04-29] MEDS: Enoxaparin 40 MG/0.4 ML Syringe SC (05:36)
[2021-04-29] MEDS: Acetaminophen 325 MG Tablet 650 MG PO (05:37)
[2021-04-29 06:15] LABS: Bedside Glucose 98 mg/dL (70-110)
[2021-04-29 08:02] VITALS: BP 156/88; PULSE 84; RESP 18; TEMP 36.2; O2SAT 96
[2021-04-29] MEDS: Aspirin 81 MG TAB.CHEW PO (09:06)
[2021-04-29] MEDS: Iron Polysaccharide Complex 150 MG CAPSULE PO ×2 (09:06→16:11)
[2021-04-29] MEDS: Potassium Chloride Oral Tablet 20 MEQ PO (09:06)
[2021-04-29] MEDS: DULoxetine Hcl 60 MG Capsule PO (09:06)
[2021-04-29] MEDS: metFORMIN HCl 500 MG Tablet PO ×2 (09:06→16:11)
[2021-04-29 09:07] VITALS: PULSE 77
[2021-04-29] MEDS: QUEtiapine 25 MG Tablet PO (09:07)
[2021-04-29] MEDS: Metoprolol(XL)Succ 25 MG Tablet PO ×2 (09:07→13:47)
[2021-04-29] MEDS: Pantoprazole Sodium 40 MG Tablet PO (09:07)
[2021-04-29] MEDS: Magnesium Chloride 64 MG Delay Rel.Tablet 128 MG PO ×2 (09:07→20:22)
[2021-04-29] MEDS: Clopidogrel Bisulfate 75 MG Tablet PO (09:08)
[2021-04-29] MEDS: Lisinopril 20 MG Tablet PO (09:09)
--- NOTE | 2021-04-29 09:58 | CASEMGMT ---
Social Work Spoke with dtr about IDT setting DC date for 05/04. Dtr agreeable. Pt is ready to DC. Inquired about HHC vs outpatient. Dtr prefers [facility] and [facility]. Dtr requesting new rollator. Referred to [facility]. Dtr remains agreeable to [facility] - notified of DC date. Dtr to transport. Plan: DC home alone with family support 05/04, [facility] HHC PT/OT/ST/SN, rollator, Palliative Edilia Fernández, OIL RECOVERY OPERATOR PANTS CUTTER
[2021-04-29] MEDS: Fluticasone/Salmeterol 232-14 Inhaler 1 PUFF INHALATION ×2 (10:05→20:20)
[2021-04-29 13:47] VITALS: PULSE 88
[2021-04-29] MEDS: Ascorbic Acid 500 MG Tablet PO (16:11)
[2021-04-29 17:00] VITALS: BMI 26.2
--- NOTE | 2021-04-29 17:14 | CM.ED ---
ANTHONY Note ANTHONY received fax from [employer] confirming order for patient. ANTHONY called Katiuska in Rehab and she advised she would leave voice mail for Rehab social media project manager. ANTHONY will place the confirmation from [employer] in Rehab Diorama Model Maker's office. ANTHONY sent Rehab social media project manager an updated also. Katiuska from Rehab said patient is going home next week. Plan: Rehab Diorama Model Maker will follow up Katiuska LOPEZ
--- NOTE | 2021-04-29 19:12 | NURSING ---
Daughter aware to get her mom's own blood sugar machine at home so patient can start practicing with nursing here. Thorough demonstration given on giving self her own Lantus injection.
[2021-04-29 19:13] VITALS: BP 141/85; PULSE 94; RESP 16; TEMP 36.3; O2SAT 98
[2021-04-29] MEDS: QUEtiapine 25 MG Tablet 75 MG PO (20:03)
[2021-04-29] MEDS: clonazePAM 0.5 MG Tablet 0.25 MG PO (20:20)
[2021-04-29] MEDS: busPIRone 5 MG Tablet 10 MG PO (20:20)
[2021-04-29] MEDS: Atorvastatin Calcium 40 MG Tablet PO (20:22)
[2021-04-29 21:40] LABS: Bedside Glucose 136 mg/dL (70-110)
[2021-04-29 22:35] VITALS: BMI 26.2
[2021-04-30] MEDS: Enoxaparin 40 MG/0.4 ML Syringe SC (05:36)
[2021-04-30 06:41] LABS: Bedside Glucose 82 mg/dL (70-110)
[2021-04-30 07:30] VITALS: BP 124/81; PULSE 67; RESP 18; TEMP 36.3; O2SAT 98
[2021-04-30] MEDS: Aspirin 81 MG TAB.CHEW PO (08:00)
[2021-04-30] MEDS: busPIRone 5 MG Tablet 10 MG PO ×2 (08:00→21:29)
[2021-04-30] MEDS: Iron Polysaccharide Complex 150 MG CAPSULE PO ×2 (08:00→16:30)
[2021-04-30] MEDS: Potassium Chloride Oral Tablet 20 MEQ PO (08:01)
[2021-04-30] MEDS: metFORMIN HCl 500 MG Tablet PO ×2 (08:01→16:30)
[2021-04-30] MEDS: DULoxetine Hcl 60 MG Capsule PO (08:01)
[2021-04-30] MEDS: Fluticasone/Salmeterol 232-14 Inhaler 1 PUFF INHALATION ×2 (08:01→21:29)
[2021-04-30 08:02] VITALS: PULSE 67
[2021-04-30] MEDS: Pantoprazole Sodium 40 MG Tablet PO (08:02)
[2021-04-30] MEDS: Magnesium Chloride 64 MG Delay Rel.Tablet 128 MG PO ×2 (08:02→21:28)
[2021-04-30] MEDS: Clopidogrel Bisulfate 75 MG Tablet PO (08:02)
[2021-04-30] MEDS: Metoprolol(XL)Succ 50 MG Tablet PO (08:02)
[2021-04-30] MEDS: QUEtiapine 25 MG Tablet PO (08:02)
[2021-04-30] MEDS: Lisinopril 20 MG Tablet PO (08:02)
[2021-04-30 09:51] VITALS: BMI 26.2
[2021-04-30] MEDS: busPIRone 5 MG Tablet PO (12:33)
[2021-04-30] MEDS: Ascorbic Acid 500 MG Tablet PO (16:30)
[2021-04-30 19:41] VITALS: BP 158/95; PULSE 81; RESP 17; TEMP 36.4; O2SAT 99
[2021-04-30] MEDS: QUEtiapine 25 MG Tablet 75 MG PO (20:05)
[2021-04-30] MEDS: clonazePAM 0.5 MG Tablet 0.25 MG PO (21:28)
[2021-04-30] MEDS: Atorvastatin Calcium 40 MG Tablet PO (21:28)
[2021-04-30 21:45] LABS: Bedside Glucose 115 mg/dL (70-110)
[2021-05-01] MEDS: Enoxaparin 40 MG/0.4 ML Syringe SC (05:32)
[2021-05-01] MEDS: Acetaminophen 325 MG Tablet 650 MG PO (06:55)
[2021-05-01 07:21] LABS: Bedside Glucose 91 mg/dL (70-110)
[2021-05-01 08:09] VITALS: BP 146/89; PULSE 66; RESP 16; TEMP 36.4; O2SAT 96
[2021-05-01] MEDS: DULoxetine Hcl 60 MG Capsule PO (09:00)
[2021-05-01] MEDS: metFORMIN HCl 500 MG Tablet PO ×2 (09:00→16:57)
[2021-05-01] MEDS: busPIRone 5 MG Tablet 10 MG PO ×2 (09:00→21:13)
[2021-05-01] MEDS: Magnesium Chloride 64 MG Delay Rel.Tablet 128 MG PO ×2 (09:00→21:15)
[2021-05-01] MEDS: Aspirin 81 MG TAB.CHEW PO (09:00)
[2021-05-01 09:01] VITALS: PULSE 76
[2021-05-01] MEDS: Metoprolol(XL)Succ 50 MG Tablet PO (09:01)
[2021-05-01] MEDS: QUEtiapine 25 MG Tablet PO (09:01)
[2021-05-01] MEDS: Pantoprazole Sodium 40 MG Tablet PO (09:01)
[2021-05-01] MEDS: Clopidogrel Bisulfate 75 MG Tablet PO (09:01)
[2021-05-01] MEDS: Potassium Chloride Oral Tablet 20 MEQ PO (09:01)
[2021-05-01] MEDS: Lisinopril 20 MG Tablet PO (09:01)
[2021-05-01] MEDS: Iron Polysaccharide Complex 150 MG CAPSULE PO ×2 (09:01→16:57)
[2021-05-01] MEDS: Fluticasone/Salmeterol 232-14 Inhaler 1 PUFF INHALATION ×2 (09:08→21:16)
[2021-05-01] MEDS: busPIRone 5 MG Tablet PO (11:44)
[2021-05-01 14:52] VITALS: BMI 26.2
[2021-05-01] MEDS: Ascorbic Acid 500 MG Tablet PO (16:57)
[2021-05-01 19:18] VITALS: BP 165/98; PULSE 84; RESP 16; TEMP 36.3; O2SAT 99
[2021-05-01] MEDS: clonazePAM 0.5 MG Tablet 0.25 MG PO (21:12)
[2021-05-01] MEDS: QUEtiapine 25 MG Tablet 75 MG PO (21:12)
[2021-05-01] MEDS: Saliva Substitute 237 ML BOTTLE 15 ML MUCOUS MEM (21:15)
[2021-05-01] MEDS: Atorvastatin Calcium 40 MG Tablet PO (21:15)
[2021-05-01 21:22] VITALS: BMI 26.2
[2021-05-01 21:26] LABS: Bedside Glucose 85 mg/dL (70-110)
[2021-05-01 22:00] VITALS: PULSE 88; RESP 16
[2021-05-02 01:05] VITALS: PULSE 74; RESP 18
[2021-05-02] MEDS: Albuterol 2.5 MG/3 ML VIAL.NEB. INHALATION (01:08)
[2021-05-02] MEDS: Enoxaparin 40 MG/0.4 ML Syringe SC (05:24)
[2021-05-02 06:50] LABS: Bedside Glucose 158 mg/dL (70-110)
[2021-05-02 08:15] VITALS: BP 147/85; PULSE 79; RESP 18; TEMP 36.4; O2SAT 96
[2021-05-02] MEDS: Aspirin 81 MG TAB.CHEW PO (09:12)
[2021-05-02] MEDS: Potassium Chloride Oral Tablet 20 MEQ PO (09:12)
[2021-05-02 09:13] VITALS: PULSE 79
[2021-05-02] MEDS: Magnesium Chloride 64 MG Delay Rel.Tablet 128 MG PO ×2 (09:13→20:34)
[2021-05-02] MEDS: Pantoprazole Sodium 40 MG Tablet PO (09:13)
[2021-05-02] MEDS: Clopidogrel Bisulfate 75 MG Tablet PO (09:13)
[2021-05-02] MEDS: Metoprolol(XL)Succ 50 MG Tablet PO (09:13)
[2021-05-02] MEDS: QUEtiapine 25 MG Tablet PO (09:13)
[2021-05-02] MEDS: Lisinopril 20 MG Tablet PO (09:13)
[2021-05-02] MEDS: DULoxetine Hcl 60 MG Capsule PO (09:13)
[2021-05-02] MEDS: metFORMIN HCl 500 MG Tablet PO ×2 (09:13→17:19)
[2021-05-02] MEDS: busPIRone 5 MG Tablet 10 MG PO ×2 (09:13→20:33)
[2021-05-02] MEDS: Iron Polysaccharide Complex 150 MG CAPSULE PO ×2 (09:15→17:19)
[2021-05-02] MEDS: Fluticasone/Salmeterol 232-14 Inhaler 1 PUFF INHALATION ×2 (09:15→20:33)
[2021-05-02] MEDS: busPIRone 5 MG Tablet PO (12:52)
[2021-05-02 15:35] VITALS: BMI 26.2
[2021-05-02] MEDS: Ascorbic Acid 500 MG Tablet PO (17:19)
[2021-05-02 18:56] VITALS: BP 108/66; PULSE 75; RESP 16; TEMP 36.4; O2SAT 97
[2021-05-02 20:21] VITALS: BMI 26.2
[2021-05-02] MEDS: QUEtiapine 25 MG Tablet 75 MG PO (20:22)
[2021-05-02 20:25] VITALS: PULSE 86; RESP 16; O2SAT 96
[2021-05-02] MEDS: Atorvastatin Calcium 40 MG Tablet PO (20:32)
[2021-05-02] MEDS: clonazePAM 0.5 MG Tablet 0.25 MG PO (20:32)
[2021-05-02 21:45] LABS: Bedside Glucose 109 mg/dL (70-110)
[2021-05-03] MEDS: Acetaminophen 325 MG Tablet 650 MG PO (05:21)
[2021-05-03] MEDS: Enoxaparin 40 MG/0.4 ML Syringe SC (05:23)
[2021-05-03 06:51] LABS: Bedside Glucose 118 mg/dL (70-110)
[2021-05-03] MEDS: Potassium Chloride Oral Tablet 20 MEQ PO (08:00)
[2021-05-03] MEDS: Iron Polysaccharide Complex 150 MG CAPSULE PO ×2 (08:00→16:51)
[2021-05-03] MEDS: Aspirin 81 MG TAB.CHEW PO (08:00)
[2021-05-03] MEDS: busPIRone 5 MG Tablet 10 MG PO ×2 (08:00→20:49)
[2021-05-03] MEDS: metFORMIN HCl 500 MG Tablet PO ×2 (08:01→16:51)
[2021-05-03] MEDS: DULoxetine Hcl 60 MG Capsule PO (08:02)
[2021-05-03] MEDS: Fluticasone/Salmeterol 232-14 Inhaler 1 PUFF INHALATION ×2 (08:02→20:50)
[2021-05-03] MEDS: Magnesium Chloride 64 MG Delay Rel.Tablet 128 MG PO ×2 (08:03→20:51)
[2021-05-03 08:04] VITALS: PULSE 68
[2021-05-03] MEDS: QUEtiapine 25 MG Tablet PO (08:04)
[2021-05-03] MEDS: Clopidogrel Bisulfate 75 MG Tablet PO (08:04)
[2021-05-03] MEDS: Lisinopril 20 MG Tablet PO (08:04)
[2021-05-03] MEDS: Metoprolol(XL)Succ 50 MG Tablet PO (08:04)
[2021-05-03] MEDS: Pantoprazole Sodium 40 MG Tablet PO (08:04)
[2021-05-03 08:16] VITALS: BP 153/89; PULSE 68; RESP 18; TEMP 36.7; O2SAT 95
[2021-05-03 11:08] VITALS: BMI 26.2
[2021-05-03] MEDS: busPIRone 5 MG Tablet PO (11:33)
[2021-05-03] MEDS: Mag Hydrox/Al Hydrox/Simeth 30 ML UDC PO (14:18)
[2021-05-03] MEDS: Ascorbic Acid 500 MG Tablet PO (16:51)
[2021-05-03 19:17] VITALS: BP 153/97; PULSE 93; RESP 18; TEMP 36.4; O2SAT 97
[2021-05-03 20:01] VITALS: BMI 26.2
[2021-05-03] MEDS: QUEtiapine 25 MG Tablet 75 MG PO (20:49)
[2021-05-03] MEDS: Atorvastatin Calcium 40 MG Tablet PO (20:51)
[2021-05-03] MEDS: clonazePAM 0.5 MG Tablet 0.25 MG PO (20:54)
[2021-05-03 22:00] VITALS: PULSE 77; RESP 16; O2SAT 97
[2021-05-03 23:26] LABS: Bedside Glucose 99 mg/dL (70-110)
[2021-05-04] MEDS: Enoxaparin 40 MG/0.4 ML Syringe SC (05:12)
[2021-05-04 06:50] LABS: Bedside Glucose 126 mg/dL (70-110)
[2021-05-04] MEDS: Potassium Chloride Oral Tablet 20 MEQ PO (07:34)
[2021-05-04 07:35] VITALS: BP 158/86; PULSE 76
[2021-05-04] MEDS: Aspirin 81 MG TAB.CHEW PO (07:35)
[2021-05-04] MEDS: Metoprolol(XL)Succ 50 MG Tablet PO (07:35)
[2021-05-04] MEDS: busPIRone 5 MG Tablet 10 MG PO (07:35)
[2021-05-04] MEDS: Magnesium Chloride 64 MG Delay Rel.Tablet 128 MG PO (07:35)
[2021-05-04] MEDS: Lisinopril 20 MG Tablet PO (07:35)
[2021-05-04] MEDS: DULoxetine Hcl 60 MG Capsule PO (07:36)
[2021-05-04] MEDS: QUEtiapine 25 MG Tablet PO (07:36)
[2021-05-04] MEDS: Iron Polysaccharide Complex 150 MG CAPSULE PO (07:36)
[2021-05-04] MEDS: Pantoprazole Sodium 40 MG Tablet PO (07:36)
[2021-05-04] MEDS: Clopidogrel Bisulfate 75 MG Tablet PO (07:36)
[2021-05-04] MEDS: Fluticasone/Salmeterol 232-14 Inhaler 1 PUFF INHALATION (07:37)
[2021-05-04] MEDS: metFORMIN HCl 500 MG Tablet PO (08:01)
[2021-05-04 09:01] VITALS: BP 158/86; PULSE 76; RESP 16; TEMP 36.6; O2SAT 94
[2021-05-04 09:13] VITALS: BMI 26.2
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
[2021-05-04] MEDS: busPIRone 5 MG Tablet PO (11:05)
[2021-05-04 13:50] VITALS: BP 158/86; PULSE 76; RESP 16; TEMP 36.6; O2SAT 94
== END 2021-05-04 13:52 | disposition home health service (06) | DRG 57 ==
PROVIDERS: Admitting Provider Internal Medicine; PCP Family Medicine; Referring Provider Internal Medicine; Visit Provider Internal Medicine
DX: I69.351 Hemiplegia and hemiparesis following cerebral infarction affecting right dominant side (principal); I13.0 Hypertensive heart and chronic kidney disease with heart failure and stage 1 through stage 4 chronic kidney disease, or unspecified chronic kidney disease; I50.32 Chronic diastolic (congestive) heart failure; Q21.1 Atrial septal defect; F13.20 Sedative, hypnotic or anxiolytic dependence, uncomplicated; F11.20 Opioid dependence, uncomplicated; I69.392 Facial weakness following cerebral infarction; I69.391 Dysphagia following cerebral infarction; I69.328 Other speech and language deficits following cerebral infarction; R13.10 Dysphagia, unspecified; E11.22 Type 2 diabetes mellitus with diabetic chronic kidney disease; N18.2 Chronic kidney disease, stage 2 (mild); I27.20 Pulmonary hypertension, unspecified; F32.9 Major depressive disorder, single episode, unspecified; M21.371 Foot drop, right foot; S05.11XD Contusion of eyeball and orbital tissues, right eye, subsequent encounter; W19.XXXD Unspecified fall, subsequent encounter; D50.9 Iron deficiency anemia, unspecified; G89.4 Chronic pain syndrome; M19.90 Unspecified osteoarthritis, unspecified site; R29.6 Repeated falls; F41.0 Panic disorder [episodic paroxysmal anxiety]; M75.101 Unspecified rotator cuff tear or rupture of right shoulder, not specified as traumatic; M19.011 Primary osteoarthritis, right shoulder; N30.90 Cystitis, unspecified without hematuria; Z79.4 Long term (current) use of insulin; Z79.899 Other long term (current) drug therapy; Z87.820 Personal history of traumatic brain injury
CPT/HCPCS: 36415; 71045; 71046; 74230; 80048; 81001; 82306; 82533; 82962; 83036; 83735; 83880; 84443; 85014; 85018; 85025; 86850; 86900; 86901; 86920; 86922; 87077; 87086; 87088; 87186; 92507; 92523; 92526; 92610; 92611; 93005; 93970; 94640; 94762; 97110; 97112; 97116; 97162; 97166; 97530; 97533; 97535; 97802; 97803; 99251; J7030; J7040; J7050; P9016; A4216; G0463; J1940; J2916

== ENCOUNTER 2023-01-13 12:21 | Emergency (ER) | payer MEDICARE, SELFPAY ==
[2023-01-13] VITALS (28 sets, daily range): BP systolic 181–215; BP diastolic 112–129; PULSE 79–92; RESP 14–24; TEMP 36.9; O2SAT 96–99; BMI 23.4
--- NOTE | 2023-01-13 13:19 | ED.VIS.LOWEX ---
HPI History of Present Illness Chief Complaint: Fall Narrative Narrative: 82-year-old female presenting with left hip pain and left lower back pain. She states this started about 4 days ago. She does report a fall a few weeks ago but states she has not had any pain. She denies any specific trauma at this time. She states she might of rolled over in her bed wrong and now she is got pain in the lower back on the left. She initially stated she called EMS because she cannot walk, but then reported that she walked all the way to her kitchen and back to her bedroom. Patient states that she has been taking Tylenol at home. She has tried heat. She has not iced. She is not stretching. [facility] Medical History Acute on chronic anemia Anxiety Anxiety and depression Benzodiazepine dependence Chronic heart failure with preserved ejection fraction (HFpEF) Chronic pain disorder Chronic renal failure, stage 2 (mild) Cystitis Debility Depression Diabetes mellitus, type 2 Essential hypertension Frequent falls History of CVA (cerebrovascular accident) (04/07/21) History of traumatic brain injury (03/2020) Hypomagnesemia Insomnia Iron deficiency anemia Kidney disease Neuropathic pain Opioid dependence Osteoarthritis Poor dentition Pulmonary hypertension Received intravenous tissue plasminogen activator (tPA) in emergency department Right foot drop Right shoulder pain Right wrist fracture Secondary pulmonary arterial hypertension Sleep-disordered breathing Stroke/cerebrovascular accident Home Medications aspirin 81 mg chewable tablet 81 mg PO DAILY@0800 [facility] 04/09/21 [History Last Taken Unknown] acetaminophen 325 mg tablet (Tylenol) 650 mg PO Q6H PRN PRN PAIN #0 tabs 05/04/21 [Rx Last Taken Unknown] ascorbic acid (vitamin C) 500 mg tablet 500 mg PO DAILY@1700 #30 tabs 05/04/21 [Rx Last Taken Unknown] atorvastatin 40 mg tablet 40 mg PO QHS cholesterol #30 tabs 05/04/21 [Rx Last Taken Unknown] buspirone 10 mg tablet 10 mg PO TID #90 tabs 05/04/21 [Rx Last Taken Unknown] clopidogrel 75 mg tablet 75 mg PO DAILY #30 tabs 05/04/21 [Rx Last Taken Unknown] duloxetine 60 mg capsule,delayed release 60 mg PO DAILY depression #30 caps 05/04/21 [Rx Last Taken Unknown] ferrous gluconate 324 mg (37.5 mg iron) tablet 324 mg PO DAILY #30 tabs 05/04/21 [Rx Last Taken Unknown] fluticasone 232 mcg-salmeterol 14 mcg/actuation breath activated powdr 1 puff inhalation Q12 #1 ea 05/04/21 [Rx Last Taken Unknown] insulin glargine 100 unit/mL (3 mL) subcutaneous pen (Lantus Solostar U-100 Insulin) 10 unit (0.1 mL) subcut DAILY diabetes #300 multiple units 05/04/21 [Rx Last Taken Unknown] lisinopril 20 mg tablet 20 mg PO DAILY blood pressure #30 tabs 05/04/21 [Rx Last Taken Unknown] magnesium oxide 400 mg (241.3 mg magnesium) tablet 400 mg PO BID #60 tabs 05/04/21 [Rx Last Taken Unknown] metformin 500 mg tablet 500 mg PO BID diabetes #60 tabs 05/04/21 [Rx Last Taken Unknown] metoprolol succinate 50 mg tablet,extended release 24 hr 50 mg PO DAILY #30 tabs 05/04/21 [Rx Last Taken Unknown] pantoprazole 40 mg tablet,delayed release 40 mg PO DAILY reflux #300 tabs 05/04/21 [Rx Last Taken 04/06/21] potassium chloride 20 mEq tablet,extended release(part/cryst) 20 meq PO DAILY supplement #30 tabs 05/04/21 [Rx Last Taken Unknown] quetiapine 25 mg tablet 25 mg PO DAILY #120 tabs 05/04/21 [Rx Last Taken Unknown] saliva substitute combo no.9 (Biotene Dry Mouth Oral Rinse mouthwash) 15 ml mucous membrane 5X/DAY PRN Dry Mouth #0 mL 05/04/21 [Rx Last Taken Unknown] cyclobenzaprine 5 mg tablet 5 mg PO TID PRN muscle spasm #10 tabs 01/13/23 [Rx Last Taken Unknown] Allergy/AdvReac Type Severity Reaction Status Date / Time morphine AdvReac delirium Verified 01/13/23 12:28 Family History Father Brain tumor Hypertension Mother Gallbladder disease Hypertension Other Diabetes Surgical History History of hip replacement History of open reduction and internal fixation (ORIF) procedure Social History household members: none number of children: 3 current occupational status: retired and disabled pets and animals: Yes pets and animals: cat(s) leisure activities: reading and other other: likes to watch educational documentaries on TV Smoking Status: Never smoker alcohol intake: never substance use type: does not use ROS ROS ED Review of Systems ROS Unobtainable: Denies due to encephalopathy Constitutional Constitutional ED: Denies chills Eyes Eyes: Denies blurry vision or change in vision ENT ENT ED: Denies ear pain or sore throat Cardiovascular Cardiovascular: Denies chest pain, palpitations or racing heartbeat Respiratory/Chest Respiratory/Chest: Denies cough, dyspnea or sputum Gastrointestinal Gastrointestinal: Denies abdominal pain, constipation, diarrhea, nausea or vomiting Genitourinary Genitourinary ED: Denies dysuria, hematuria or urinary frequency Musculoskeletal Musculoskeletal: Reports back pain and other Details: Left hip pain ; Denies arthralgias Integumentary Denies abscess, Abrasions or rash Neurologic Neurologic: Denies headache(s), paresthesias or weakness Psychiatric Psychiatric: Denies anxiety, depression, suicidal ideation or suicidal thoughts Endocrine Endocrinology: Denies polydipsia or polyuria EXAM Physical Exam Const Vital Signs: 01/13/23 12:23 Temperature 98.5 F Temperature Source Oral Pulse Rate 92 Respiratory Rate 14 Blood Pressure 215/129 H Blood Pressure Mean 157 Pulse Ox 98 Oxygen Delivery Method Room Air Positive well nourished General Appearance ED: NAD HEENT Reports moist mucous membranes normocephalic and atraumatic Neck full ROM Chest Wall inspection of chest normal and palpation of chest normal Resp normal respiratory effort and no retractions Auscultation: Negative for rales, rhonchi or wheezes Cardio regular rate and regular rhythm GI non-tender and non-distended Back/Spine no CVA tenderness Back/Spine Narrative: Left lumbar paraspinal muscular tenderness. Patient is able to lift her left leg to nearly 120 degrees without any difficulty. This is active. Patient has no tenderness in the gluteal region. No midline spinal deformities or step-offs. Lumbar Spine / Lower Back: straight leg raise negative bilaterally Extremity normal to inspection Neuro oriented x3 and CN's II-XII intact bilaterally Sensorium / Orientation: alert Motor Exam: strength 5/5 throughout Psych mental status grossly normal Skin no wounds Lesions: no lesions Rashes: no rashes MDM MDM MDM Narrative Medical decision making narrative: Patient presenting with left lumbar paraspinal muscular tenderness. She initially thought she had sciatica but she is able to lift her leg to nearly 120 degrees without any difficulty at all. No midline spinal deformity or step-off. Patient medicated with Norflex. X-rays of the lumbar spine and left hip will be obtained. We will ambulate the patient images are within normal limits. X-rays of the lumbar spine and left hip show no acute fracture or subluxation. Patient feeling improved after treatment. She was ambulated in the hallways and was stable. Patient given 5 mg cyclobenzaprine for home. Patient's family did not want her to have narcotic pain medication because she has history of addiction. Patient discharged home in stable condition. Impression: 1. Lumbar strain Radiography Diagnostic Testing: Clinical Impression(s) from Imaging Studies Hip/Pelvis X-Ray 01/13/23 14:15 IMPRESSION: Status post bilateral total hip replacement. No acute abnormality is seen. Electronically Signed: Avery Pabon MD at 14:29 EST , Lumbar Spine X-Ray 01/13/23 14:15 IMPRESSION: Degenerative changes of the spine, as detailed above. Levoscoliosis. Status post bilateral total hip replacement. Electronically Signed: Avery Pabon MD at 14:30 EST , Discharge Plan Triage Chief Complaint: Fall ED Provider: Demetrius Lombardi Dx/Rx/DC Orders Instructions: ED Back Sprain/Strain Prescriptions: New cyclobenzaprine 5 mg tablet 5 mg PO TID PRN (Reason: muscle spasm) Qty: 10 0RF No Action aspirin 81 mg tablet,chewable 81 mg PO DAILY@0800 acetaminophen [Tylenol] 325 mg Tablet 650 mg PO Q6H PRN PRN (Reason: PAIN) Qty: 0 0RF ascorbic acid (vitamin C) 500 mg Tablet 500 mg PO DAILY@1700 Qty: 30 0RF Rx Instructions: Take this with the iron tab every day with a meal quetiapine 25 mg Tablet 25 mg PO DAILY Qty: 120 0RF Rx Instructions: Take 1 tab in the AM and 3 tabs at bedtime metoprolol succinate 50 mg Tablet Extended Release 24 Hr 50 mg PO DAILY Qty: 30 0RF clopidogrel 75 mg Tablet 75 mg PO DAILY Qty: 30 0RF fluticasone propion-salmeterol 232-14 mcg/actuation Aerosol Powdr Breath Activated 1 puff inhalation Q12 Qty: 1 0RF Biotene Dry Mouth Oral Rinse Mouthwash 15 ml mucous membrane 5X/DAY PRN (Reason: Dry Mouth) Qty: 0 0RF ferrous gluconate 324 mg (37.5 mg iron) tablet 324 mg PO DAILY Qty: 30 0RF Rx Instructions: Take this medication with 500 mg of Vitamin C with supper daily buspirone 10 mg tablet 10 mg PO TID Qty: 90 0RF magnesium oxide 400 mg (241.3 mg magnesium) tablet 400 mg PO BID Qty: 60 0RF atorvastatin 40 mg tablet 40 mg PO QHS Qty: 30 0RF metformin 500 MG tablet 500 mg PO BID Qty: 60 0RF lisinopril 20 MG tablet 20 mg PO DAILY Qty: 30 0RF potassium chloride 20 MEQ tablet 20 meq PO DAILY Qty: 30 0RF pantoprazole 40 MG tablet 40 mg PO DAILY Qty: 300 0RF duloxetine 60 MG capsule,delayed release(DR/EC) 60 mg PO DAILY Qty: 30 0RF Lantus Solostar U-100 Insulin 100 unit/mL (3 mL) insulin pen 10 unit subcut DAILY Qty: 300 0RF Rx Instructions: Take this with breakfast in the morning Primary Care Provider: Nevin Pantoja NP Referrals: Nevin Pantoja NP, [facility] [Primary Care Provider] - Disposition Disposition: Home, Self Care
[2023-01-13] MEDS: Orphenadrine 60 MG/2 ML Ampul IM (13:57)
--- NOTE | 2023-01-13 14:15 | RAD_ITS ---
STUDY: X-RAY - LUMBAR SPINE REASON FOR EXAM: Female, 82 years old. Back pain TECHNIQUE: 3 view(s) of the lumbar spine were obtained. COMPARISON: None FINDINGS: Normal lumbar lordosis. There is a levoscoliosis of the lumbar spine. 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 There is multilevel endplate spondylosis of the lumbar vertebrae. There is multi-level degenerative disc disease with multi-level disc space narrowing. Facet joint osteoarthritis. There is atherosclerotic calcification of the abdominal aorta without a demonstrated aneurysm. RAD/Lumbar Spine 2 or 3 Views IMPRESSION: Degenerative changes of the spine, as detailed above. Levoscoliosis. Status post bilateral total hip replacement. Electronically Signed: Avery Pabon MD at 14:30 EST ,
--- NOTE | 2023-01-13 14:15 | RAD_ITS ---
STUDY: X-RAY - PELVIS AND LEFT HIP REASON FOR EXAM: Female, 82 years old. Pain TECHNIQUE: 3 views of the pelvis and hip. COMPARISON: Comparison is made with prior study dated 04/13/2020. FINDINGS: Moderate amount of fecal material is seen in the colon. There are multiple calcified phleboliths. There is narrowing with cortical sclerosis and osteophyte formation of the sacroiliac joint consistent with degenerative osteoarthritic changes. Normal bilateral superior and inferior pubic rami. There are degenerative changes of the pubic symphysis with articular narrowing and sclerosis. Normal bilateral ischial tuberosities. The patient is status post bilateral hip replacement. No acute abnormality is seen. RAD/HIP, UNI W/ Pelvis 2-3 Views IMPRESSION: Status post bilateral total hip replacement. No acute abnormality is seen. Electronically Signed: Avery Pabon MD at 14:29 EST ,
== END 2023-01-13 17:29 | disposition home or self-care (01) ==
PROVIDERS: Emergency Provider Student in an Organized Health Care Education/Training Program; PCP Registered Nurse; Visit Provider Student in an Organized Health Care Education/Training Program
DX: S39.012A Strain of muscle, fascia and tendon of lower back, initial encounter (principal); I50.32 Chronic diastolic (congestive) heart failure; N18.2 Chronic kidney disease, stage 2 (mild); Z86.73 Personal history of transient ischemic attack (TIA), and cerebral infarction without residual deficits; W19.XXXA Unspecified fall, initial encounter
CPT/HCPCS: 72100; 73502; 96372; 99284

== ENCOUNTER 2023-01-15 14:04 | Emergency (ER) | payer MEDICARE, SELFPAY ==
[2023-01-15 14:07] VITALS: BP 173/106; PULSE 103; RESP 16; TEMP 36.2; O2SAT 99; BMI 20.3
--- NOTE | 2023-01-15 14:32 | EX.ED.GENINJ ---
HPI <SHEILA Georges - Last Filed: 01/15/23 20:03> History of Present Illness Chief Complaint: Other, Pain/Inj Narrative Narrative: 82-year-old female presents with left lower back pain radiating down the buttock. It started about 5 days ago. She had no recent fall or injury. She thinks it started when she rolled over in bed and pulled something. She was seen here 2 days ago and had x-rays of her back and hip that were negative. She is taking Aleve and was prescribed Flexeril 5 mg but states it is not helping. She has no new injury. No weakness, numbness or tingling, saddle anesthesia, or bladder or bowel incontinence. No fever or urinary symptoms. PFS <SHEILA Georges - Last Filed: 01/15/23 20:03> [facility] Medical History Acute on chronic anemia Anxiety Anxiety and depression Benzodiazepine dependence Chronic heart failure with preserved ejection fraction (HFpEF) Chronic pain disorder Chronic renal failure, stage 2 (mild) Cystitis Debility Depression Diabetes mellitus, type 2 Essential hypertension Frequent falls History of CVA (cerebrovascular accident) (04/07/21) History of traumatic brain injury (03/2020) Hypomagnesemia Insomnia Iron deficiency anemia Kidney disease Neuropathic pain Opioid dependence Osteoarthritis Poor dentition Pulmonary hypertension Received intravenous tissue plasminogen activator (tPA) in emergency department Right foot drop Right shoulder pain Right wrist fracture Secondary pulmonary arterial hypertension Sleep-disordered breathing Stroke/cerebrovascular accident Home Medications aspirin 81 mg chewable tablet 81 mg PO DAILY@0800 [facility] 04/09/21 [History Last Taken Unknown] acetaminophen 325 mg tablet (Tylenol) 650 mg PO Q6H PRN PRN PAIN #0 tabs 05/04/21 [Rx Last Taken Unknown] ascorbic acid (vitamin C) 500 mg tablet 500 mg PO DAILY@1700 #30 tabs 05/04/21 [Rx Last Taken Unknown] atorvastatin 40 mg tablet 40 mg PO QHS cholesterol #30 tabs 05/04/21 [Rx Last Taken Unknown] buspirone 10 mg tablet 10 mg PO TID #90 tabs 05/04/21 [Rx Last Taken Unknown] clopidogrel 75 mg tablet 75 mg PO DAILY #30 tabs 05/04/21 [Rx Last Taken Unknown] duloxetine 60 mg capsule,delayed release 60 mg PO DAILY depression #30 caps 05/04/21 [Rx Last Taken Unknown] ferrous gluconate 324 mg (37.5 mg iron) tablet 324 mg PO DAILY #30 tabs 05/04/21 [Rx Last Taken Unknown] fluticasone 232 mcg-salmeterol 14 mcg/actuation breath activated powdr 1 puff inhalation Q12 #1 ea 05/04/21 [Rx Last Taken Unknown] insulin glargine 100 unit/mL (3 mL) subcutaneous pen (Lantus Solostar U-100 Insulin) 10 unit (0.1 mL) subcut DAILY diabetes #300 multiple units 05/04/21 [Rx Last Taken Unknown] lisinopril 20 mg tablet 20 mg PO DAILY blood pressure #30 tabs 05/04/21 [Rx Last Taken Unknown] magnesium oxide 400 mg (241.3 mg magnesium) tablet 400 mg PO BID #60 tabs 05/04/21 [Rx Last Taken Unknown] metformin 500 mg tablet 500 mg PO BID diabetes #60 tabs 05/04/21 [Rx Last Taken Unknown] metoprolol succinate 50 mg tablet,extended release 24 hr 50 mg PO DAILY #30 tabs 05/04/21 [Rx Last Taken Unknown] pantoprazole 40 mg tablet,delayed release 40 mg PO DAILY reflux #300 tabs 05/04/21 [Rx Last Taken 04/06/21] potassium chloride 20 mEq tablet,extended release(part/cryst) 20 meq PO DAILY supplement #30 tabs 05/04/21 [Rx Last Taken Unknown] quetiapine 25 mg tablet 25 mg PO DAILY #120 tabs 05/04/21 [Rx Last Taken Unknown] saliva substitute combo no.9 (Biotene Dry Mouth Oral Rinse mouthwash) 15 ml mucous membrane 5X/DAY PRN Dry Mouth #0 mL 05/04/21 [Rx Last Taken Unknown] cyclobenzaprine 5 mg tablet 5 mg PO TID PRN muscle spasm #10 tabs 01/13/23 [Rx Last Taken Unknown] lidocaine 5 % topical patch (Lidoderm) 1 patch topical DAILY #15 ea 01/15/23 [Rx Last Taken Unknown] tizanidine 4 mg capsule 4 mg PO Q8H PRN muscle spasticity #15 caps 01/15/23 [Rx Last Taken Unknown] Allergy/AdvReac Type Severity Reaction Status Date / Time morphine AdvReac delirium Verified 01/13/23 12:28 Family History Father Brain tumor Hypertension Mother Gallbladder disease Hypertension Other Diabetes Surgical History History of hip replacement History of open reduction and internal fixation (ORIF) procedure Social History household members: none number of children: 3 current occupational status: retired and disabled pets and animals: Yes pets and animals: cat(s) leisure activities: reading and other other: likes to watch educational documentaries on TV Smoking Status: Never smoker alcohol intake: never substance use type: does not use ROS <SHEILA Georges - Last Filed: 01/15/23 20:03> ROS ED ROS Narrative Constitutional: Negative for fever, chills, malaise. CVS: Negative for palpitations, chest pain, syncope. Respiratory: Negative for shortness of breath, cough. GI: Negative for abdominal pain, nausea, vomiting. : Negative for dysuria, hematuria or frequency. Neuro: Negative for motor/sensory dysfunction. Skin: Negative for rash, abscess, or wound. Musc: Positive for back pain. Heme: Negative for easy bruising, bleeding, lymphadenopathy. EXAM <SHEILA Georges - Last Filed: 01/15/23 20:03> Physical Exam Narrative Exam Narrative: CONST: Patient sitting in no acute distress. EYES: Normal inspection. NECK: Normal inspection. RESP: No respiratory distress, CTAB. CVS: Regular rate and rhythm, no murmur, no gallop. ABD: Soft and nontender, no guarding or rebound, nondistended. Back: Normal inspection, left lumbar paraspinal tenderness, no midline tenderness or step-offs. SKIN: Color normal, no rash, warm, dry, intact. EXTREMITIES: Normal appearance, no pedal edema. Full ROM of both lower extremities, negative straight leg raise, 5/5 strength and normal sensation, 2+ DP pulses. NEURO: Oriented x4. PSYCH: Normal affect. Const Vital Signs: 01/15/23 14:07 Temperature 97.1 F L Temperature Source Temporal Pulse Rate 103 H Respiratory Rate 16 Blood Pressure 173/106 H Blood Pressure Mean 128 Pulse Ox 99 Oxygen Delivery Method Room Air <Dr. Sheron Gaona, DO - Last Filed: 01/16/23 00:10> Physical Exam Const Vital Signs: 01/15/23 14:07 Temperature 97.1 F L Temperature Source Temporal Pulse Rate 103 H Respiratory Rate 16 Blood Pressure 173/106 H Blood Pressure Mean 128 Pulse Ox 99 Oxygen Delivery Method Room Air MDM <SHEILA Georges - Last Filed: 01/15/23 20:03> [facility] Narrative Medical decision making narrative: Patient has had about a week of left low back pain after rolling over in bed. She has reproducible left lumbar paraspinal tenderness. There is no midline spinal tenderness or step-offs. Lower extremity MSPs and reflexes are intact. I reviewed prior x-rays from her visits this week of the lumbar spine and left hip which are negative. With no new trauma and no bony tenderness I do not think further imaging is indicated. She has no red flag symptoms concerning for cauda equina syndrome so no indication for an MRI. UA is negative and will be sent for culture. I suspect her pain is musculoskeletal with possibly superimposed sciatic pain. She felt better after Norflex IM and a lidocaine patch and was able to ambulate. She had already finished the short course of cyclobenzaprine from a prior visit. I prescribed tizanidine and lidocaine patches and told her to see her primary care this week as she may need PT. Prior note states she has a history of addiction so we will avoid narcotics. She was given return precautions and discharged in stable condition. Lab Data Attestation: I reviewed the patient's lab results. Labs: Laboratory Results - last 24 hr 01/15/23 17:10 Urine Color Yellow Urine Clarity Sl. Cloudy Urine pH 5.0 Ur Specific [place] 1.015 Urine Protein Negative Urine Glucose (UA) Normal Urine Ketones 5 H Urine Occult Blood Negative Urine Nitrite Negative Urine Bilirubin Negative Urine Urobilinogen Normal Ur Leukocyte Esterase 100 H Urine RBC 0 SEEN Urine WBC 0-5 SEEN Ur Squamous Epith Cells 0-5 SEEN Urine Bacteria 2+ Urine Mucus 0 SEEN <Dr. Sheron Gaona, DO - Last Filed: 01/16/23 00:10> [facility] Lab Data Labs: Laboratory Results - last 24 hr 01/15/23 17:10 Urine Color Yellow Urine Clarity Sl. Cloudy Urine pH 5.0 Ur Specific [place] 1.015 Urine Protein Negative Urine Glucose (UA) Normal Urine Ketones 5 H Urine Occult Blood Negative Urine Nitrite Negative Urine Bilirubin Negative Urine Urobilinogen Normal Ur Leukocyte Esterase 100 H Urine RBC 0 SEEN Urine WBC 0-5 SEEN Ur Squamous Epith Cells 0-5 SEEN Urine Bacteria 2+ Urine Mucus 0 SEEN Treatment and Re-Evaluation Narrative: Patient evaluated independently and in conjunction with physician sales support assistant. Agree with note above unless documented otherwise. I was personally present or immediately available for all clinically relevant procedures and performed my own physical exam and review of systems. Patient presents with continued left lower back pain. Patient rolled over in bed 4 days prior and has had increased pain since. No trauma. She was seen in our ER 2 days ago and diagnosed with a muscle skeletal strain and prescribed Flexeril. Patient was given ten 5 mg patient completed the entire course of this and continues to have pain. She is also been taking NSAIDs. She denies any change in her pain but states the pain is just too bad for her to deal with. There is documentation from her prior ER visit that family is concerned about her history of opioid abuse and did not want her to receive any opioids. Patient denies any numbness or tingling. States the pain radiates down her left leg. She uses a rollator at baseline. She does live home alone. Patient does not have any midline tenderness. She has a normal neurologic exam. No red flag symptoms of cauda equina syndrome. Prior lumbar and pelvic x-ray reviewed which show levoscoliosis, degenerative changes of the spine and status post bilateral total hip replacement. Patient is given a shot of Norflex as well as a Lidoderm patch. Will attempt ambulation with a walker. I do think this is muscle skeletal and if patient can adequately ambulate will be discharged back with a prescription for tizanidine instead of Flexeril and instructions to call her primary care doctor tomorrow. She might benefit from physical therapy and or consult to pain management. In addition we will obtain a urinalysis given the patient's age to make sure this is not referred pain from a UTI however I really believe this is muscle skeletal. Discharge Plan Triage Chief Complaint: Other, Pain/Inj ED Midlevel Provider: Kasie Mathew ED Provider: Sheron Gaona Dx/Rx/DC Orders Clinical Impression: Musculoskeletal back pain Instructions: ED Back Care Tips Prescriptions: New lidocaine [Lidoderm] 5 % adhesive patch,medicated 1 patch topical DAILY Qty: 15 0RF Rx Instructions: leave on most painful area for up to 12 hrs tizanidine 4 mg capsule 4 mg PO Q8H PRN (Reason: muscle spasticity) Qty: 15 0RF No Action aspirin 81 mg tablet,chewable 81 mg PO DAILY@0800 acetaminophen [Tylenol] 325 mg Tablet 650 mg PO Q6H PRN PRN (Reason: PAIN) Qty: 0 0RF ascorbic acid (vitamin C) 500 mg Tablet 500 mg PO DAILY@1700 Qty: 30 0RF Rx Instructions: Take this with the iron tab every day with a meal quetiapine 25 mg Tablet 25 mg PO DAILY Qty: 120 0RF Rx Instructions: Take 1 tab in the AM and 3 tabs at bedtime metoprolol succinate 50 mg Tablet Extended Release 24 Hr 50 mg PO DAILY Qty: 30 0RF clopidogrel 75 mg Tablet 75 mg PO DAILY Qty: 30 0RF fluticasone propion-salmeterol 232-14 mcg/actuation Aerosol Powdr Breath Activated 1 puff inhalation Q12 Qty: 1 0RF Biotene Dry Mouth Oral Rinse Mouthwash 15 ml mucous membrane 5X/DAY PRN (Reason: Dry Mouth) Qty: 0 0RF ferrous gluconate 324 mg (37.5 mg iron) tablet 324 mg PO DAILY Qty: 30 0RF Rx Instructions: Take this medication with 500 mg of Vitamin C with supper daily buspirone 10 mg tablet 10 mg PO TID Qty: 90 0RF magnesium oxide 400 mg (241.3 mg magnesium) tablet 400 mg PO BID Qty: 60 0RF atorvastatin 40 mg tablet 40 mg PO QHS Qty: 30 0RF metformin 500 MG tablet 500 mg PO BID Qty: 60 0RF lisinopril 20 MG tablet 20 mg PO DAILY Qty: 30 0RF potassium chloride 20 MEQ tablet 20 meq PO DAILY Qty: 30 0RF pantoprazole 40 MG tablet 40 mg PO DAILY Qty: 300 0RF duloxetine 60 MG capsule,delayed release(DR/EC) 60 mg PO DAILY Qty: 30 0RF Lantus Solostar U-100 Insulin 100 unit/mL (3 mL) insulin pen 10 unit subcut DAILY Qty: 300 0RF Rx Instructions: Take this with breakfast in the morning cyclobenzaprine 5 mg tablet 5 mg PO TID PRN (Reason: muscle spasm) Qty: 10 0RF Primary Care Provider: Nevin Pantoja NP Referrals: Nevin Pantoja NP, R D ENGINEER-C [Primary Care Provider] - Activity Restrictions/Additional Instructions: I prescribed a new muscle relaxer called tizanidine you can take every 8 hours as needed. I recommend taking Tylenol 1000 mg every 6 hours. If you need additional pain relief add Motrin 600 mg with it. Follow-up with your doctor this week as you may need physical therapy or other evaluation if this does not improve. Disposition Disposition: Home, Self Care Discharge Date/Time: 01/15/23 19:37
[2023-01-15] MEDS: Orphenadrine 60 MG/2 ML Ampul IM (15:04)
[2023-01-15] MEDS: Lidocaine 5% Patch 1 PATCH TOPICAL (15:55)
[2023-01-15 17:14] LABS: Mucous, Urine 0 SEEN /hpf (<or=2+); Red Blood Cells-Urine 0 SEEN /hpf (0-5)
[2023-01-15 17:20] LABS: Color, Urine Yellow (Yellow); Glucose, Dipstick Normal (Normal); Ketone-Dipstick 5 mg/dl (Negative); Leukocyte Esterase-Dipstick 100 /ul (Negative); Nitrite-Dipstick Negative (Negative); Occult Blood-Urine Negative /ul (Negative); Protein-Dipstick Negative (Negative); Specific Gravity, Urine 1.015 (1.002-1.030); Urine Bilirubin Dipstick Negative (Negative); Urine Clarity Sl. Cloudy (Clear); Urine Urobilinogen Normal (Normal)
[2023-01-15 17:26] LABS: Bacteria 2+ /hpf (None Seen); Squamous Epithelial Cells - UA 0-5 SEEN /hpf (5-10); White Blood Cells 0-5 SEEN /hpf (0-5)
== END 2023-01-15 19:37 | disposition home or self-care (01) ==
PROVIDERS: Physician Assistant; Emergency Provider Emergency Medicine; PCP Registered Nurse; Visit Provider Emergency Medicine
DX: M54.50 Low back pain, unspecified (principal); I50.32 Chronic diastolic (congestive) heart failure; N18.2 Chronic kidney disease, stage 2 (mild); Z86.73 Personal history of transient ischemic attack (TIA), and cerebral infarction without residual deficits; Z79.899 Other long term (current) drug therapy
CPT/HCPCS: 81001; 87077; 87086; 87088; 87186; 96372; 99284

== ENCOUNTER 2023-01-17 14:45 | Observation (INO) | payer MEDICARE, SELFPAY ==
[2023-01-17 14:46] VITALS: BP 160/93; PULSE 84; RESP 18; TEMP 36.6; O2SAT 100; BMI 21.7
--- NOTE | 2023-01-17 15:17 | EDS_ITS ---
HPI History of Present Illness Chief Complaint: Lower Extremity Injury Narrative Narrative: 82-year-old female past medical history of diabetes, hypertension, depression, presents for the third time for left hip pain. She presents with her daughters, one of them being an RN, stating that she is having problems with left hip pain. She was seen in the emergency department twice, the last time 2 days ago where they had x-rays performed, along with reported urine culture. However, she denies any fevers or chills, no dysuria or hematuria but pain in her left hip. She has history of bilateral total hip arthroplasties. She denies any back pain, no loss of bowel or bladder, no other symptoms. It is worse when she stands and walks. She does use a walker. However, her daughter states that she has having problems with performing her ADLs, and that she may need inpatient rehab for pain management regarding her left hip pain. She lives at home alone. [facility] Medical History Acute on chronic anemia Anxiety Anxiety and depression Benzodiazepine dependence Chronic heart failure with preserved ejection fraction (HFpEF) Chronic pain disorder Chronic renal failure, stage 2 (mild) Cystitis Debility Depression Diabetes mellitus, type 2 Essential hypertension Frequent falls History of CVA (cerebrovascular accident) (04/07/21) History of traumatic brain injury (03/2020) Hypomagnesemia Insomnia Iron deficiency anemia Kidney disease Neuropathic pain Opioid dependence Osteoarthritis Poor dentition Pulmonary hypertension Received intravenous tissue plasminogen activator (tPA) in emergency department Right foot drop Right shoulder pain Right wrist fracture Secondary pulmonary arterial hypertension Sleep-disordered breathing Stroke/cerebrovascular accident Home Medications aspirin 81 mg chewable tablet 81 mg PO DAILY@0800 [facility] 04/09/21 [History Last Taken Unknown] acetaminophen 325 mg tablet (Tylenol) 650 mg PO Q6H PRN PRN PAIN #0 tabs 05/04/21 [Rx Last Taken Unknown] ascorbic acid (vitamin C) 500 mg tablet 500 mg PO DAILY@1700 #30 tabs 05/04/21 [Rx Last Taken Unknown] atorvastatin 40 mg tablet 40 mg PO QHS cholesterol #30 tabs 05/04/21 [Rx Last Taken Unknown] buspirone 10 mg tablet 10 mg PO TID #90 tabs 05/04/21 [Rx Last Taken Unknown] clopidogrel 75 mg tablet 75 mg PO DAILY #30 tabs 05/04/21 [Rx Last Taken Unknown] duloxetine 60 mg capsule,delayed release 60 mg PO DAILY depression #30 caps 05/04/21 [Rx Last Taken Unknown] ferrous gluconate 324 mg (37.5 mg iron) tablet 324 mg PO DAILY #30 tabs 05/04/21 [Rx Last Taken Unknown] fluticasone 232 mcg-salmeterol 14 mcg/actuation breath activated powdr 1 puff inhalation Q12 #1 ea 05/04/21 [Rx Last Taken Unknown] insulin glargine 100 unit/mL (3 mL) subcutaneous pen (Lantus Solostar U-100 Insulin) 10 unit (0.1 mL) subcut DAILY diabetes #300 multiple units 05/04/21 [Rx Last Taken Unknown] lisinopril 20 mg tablet 20 mg PO DAILY blood pressure #30 tabs 05/04/21 [Rx Last Taken Unknown] magnesium oxide 400 mg (241.3 mg magnesium) tablet 400 mg PO BID #60 tabs 05/04/21 [Rx Last Taken Unknown] metformin 500 mg tablet 500 mg PO BID diabetes #60 tabs 05/04/21 [Rx Last Taken Unknown] metoprolol succinate 50 mg tablet,extended release 24 hr 50 mg PO DAILY #30 tabs 05/04/21 [Rx Last Taken Unknown] pantoprazole 40 mg tablet,delayed release 40 mg PO DAILY reflux #300 tabs 05/04/21 [Rx Last Taken 04/06/21] potassium chloride 20 mEq tablet,extended release(part/cryst) 20 meq PO DAILY supplement #30 tabs 05/04/21 [Rx Last Taken Unknown] quetiapine 25 mg tablet 25 mg PO DAILY #120 tabs 05/04/21 [Rx Last Taken Unknown] saliva substitute combo no.9 (Biotene Dry Mouth Oral Rinse mouthwash) 15 ml mucous membrane 5X/DAY PRN Dry Mouth #0 mL 05/04/21 [Rx Last Taken Unknown] cyclobenzaprine 5 mg tablet 5 mg PO TID PRN muscle spasm #10 tabs 01/13/23 [Rx Last Taken Unknown] lidocaine 5 % topical patch (Lidoderm) 1 patch topical DAILY #15 ea 01/15/23 [Rx Last Taken Unknown] tizanidine 4 mg capsule 4 mg PO Q8H PRN muscle spasticity #15 caps 01/15/23 [Rx Last Taken Unknown] Allergy/AdvReac Type Severity Reaction Status Date / Time morphine AdvReac delirium Verified 01/13/23 12:28 Family History Father Brain tumor Hypertension Mother Gallbladder disease Hypertension Other Diabetes Surgical History History of hip replacement History of open reduction and internal fixation (ORIF) procedure Social History household members: none number of children: 3 current occupational status: retired and disabled pets and animals: Yes pets and animals: cat(s) leisure activities: reading and other other: likes to watch educational documentaries on TV Smoking Status: Never smoker alcohol intake: never substance use type: does not use ROS ROS ED ROS Narrative Constitutional: No fever, no chills. HEENT: No sore throat. No neck pain. No loss of vision. No rhinorrhea. Cardiovascular: No chest pain. No palpitations. No pedal edema. Respiratory: No cough, no shortness of breath. Abdominal: No abdominal pain. No nausea. No vomiting. Genitourinary: No dysuria. No hematuria. Musculoskeletal: No myalgias. No low back pain, left hip pain. No saddle anesthesia. Worse with standing and walking. She describes a pinching sensation in her left hip. Neurologic: No headaches. No dizziness. No lightheadedness. Skin: No rash. No change in color. Psychiatric: No depression. No anxiety. EXAM Physical Exam Narrative Exam Narrative: Afebrile. Vital signs noted. HEENT: Normocephalic. Atraumatic. PERRL, EOMI. Neck soft and supple. No point tenderness or step off. Cardiovascular: Regular rate and rhythm. No murmurs, rubs, or gallops appreciated. Respiratory: No tachypnea. Lungs clear to auscultation bilaterally. Gastrointestinal: Abdomen soft, nontender, with normoactive bowel sounds. No rebound or guarding. Neurological: Awake. Alert. Nonfocal, nonlateralizing. Skin: No rash. Normal color. No pallor. Musculoskeletal: No pedal edema. Full range of motion extremities. No pain with logrolling of left femur. Pelvis stable. No vertebral point tenderness or step-off of low back. Const Vital Signs: 01/17/23 14:46 Temperature 98 F Temperature Source Oral Pulse Rate 84 Respiratory Rate 18 Blood Pressure 160/93 H Blood Pressure Mean 115 Pulse Ox 100 Oxygen Delivery Method Room Air MDM MDM MDM Narrative Medical decision making narrative: I reviewed her outpatient record. Patient does have a positive urine culture from 2 days ago that is positive for Klebsiella that is sensitive to most things except for ampicillin and Bactrim. She was started on Rocephin. Given that she is having problems performing her ADLs I do feel that she may need placement. Social work was consulted. I will obtain a CBC and a BMP for baseline laboratory work should she require at least observation for placement. Family relates history that she was sent home with a muscle relaxer, but she may have spilled the bottle of pills in the cab on the way home. They stated previously that Flexeril was ineffective in treating her pain. Patient may have more of a spinal stenosis that is causing the pinching sensation in her left hip as imaging has been performed but she has not had any recent falls onto her left hip, and she has a history of arthroplasty. I reviewed her prior records and she had negative x-rays of the low back, and of the left hip. I performed laboratory work today, and reviewed it. She has a normal white count of 8.4, hemoglobin stable at 11.1 with normal platelet count of 316. She has mild dehydration with a BUN of 24 and a creatinine slightly elevated at 1.4, above normal. Glucose elevated appropriately at 112 with a normal anion gap of 12. I reviewed her record and her UA 2 days ago showed 2+ bacteria and leukocytes, but not a lot of WBCs. The culture review was positive for Klebsiella so she was administered Rocephin 2 g intravenously. Social work is currently unavailable in the emergency department. At this hour, I do not feel that she would be able to be transferred directly to inpatient rehab. I will discuss patient with the hospitalist for observation. I discussed patient with Dr. Rowell. Patient is in stable condition. Lab Data Attestation: I reviewed the patient's lab results. Labs: Laboratory Results - last 24 hr 01/17/23 01/17/23 15:20 15:20 WBC 8.4 RBC 3.68 L Hgb 11.1 L Hct 35.9 L MCV 97.6 MCH 30.2 MCHC 30.9 L RDW Std Deviation 56.9 H RDW Coeff of [place]var[place] 15.8 H Plt Count 316 MPV 9.7 Immature Gran % (Auto) 0.400 Neut % (Auto) 80.5 H Lymph % (Auto) 7.3 L [place] % (Auto) 8.1 Eos % (Auto) 2.6 Baso % (Auto) 1.1 H Absolute Neuts (auto) 6.8 Absolute Lymphs (auto) 0.62 L Nucleated RBC % 0 Sodium 138 Potassium 3.8 Chloride 105 Carbon Dioxide 21.0 Anion Gap 12 BUN 24 H Creatinine 1.41 H Estim Creat Clear Calc 30.95 Est GFR (MDRD) Af Amer 46 L Est GFR (MDRD) Non-Af 38 L BUN/Creatinine Ratio 17.0 Glucose 112 H Calcium 9.2 Discharge Plan Dx/Rx/DC Orders Clinical Impression: Intractable pain, Inability to perform activities of daily living, Dehydration, UTI (urinary tract infection) Disposition Disposition: Acute Care Hospital [facility]
[2023-01-17 15:31] LABS: Absolute Lymphocyte Count 0.62 X10^3/uL (0.83-4.51); Absolute Neutrophil Count 6.8 X10^3/uL (2.0-7.7); Basophil# 0.09 X10^3/uL; Basophil% 1.1 % (0-1); Eosinophil# 0.22 X10^3/uL; Eosinophils% 2.6 % (0-5); Hematocrit 35.9 % (37-47); Hemoglobin 11.1 g/dL (12.0-15.0); Lymphocyte # 0.62 X10^3/ul (0.83-4.51); Lymphocyte % 7.3 % (19-41); Mean Corp Hgb Conc 30.9 g/dL (32-36); Mean Corpuscular Hgb 30.2 pg (27.0-32.0); Mean Corpuscular Volume 97.6 fL (81-99); Mean Platelet Vol. 9.7 fl (6.2-12.0); Monocyte# 0.68 X10^3/uL; Monocyte% 8.1 % (0-10); NRBC Flagged by Analyzer 0 % (0-5); Neutrophil % 80.5 % (47-70); Platelet Count 316 K/mm3 (150-450); RBC Distribution Width CV 15.8 % (11.6-14.6); RBC Distribution Width SD 56.9 fl (35.1-43.9); Red Blood Count 3.68 M/mm3 (4.2-5.4); White Blood Count 8.4 K/mm3 (4.4-11.0)
[2023-01-17 15:44] LABS: Anion Gap 12 (5-15); BUN 24 mg/dL (7-18); Calcium,Total 9.2 mg/dL (8.5-10.1); Chloride 105 mmol/L (98-107); Creatinine, Serum 1.41 mg/dL (0.55-1.02); EST Glomerular Filtration Rate 38 mL/min (>60); Est Glom Filt Rate - Afr Amer 46 mL/min (>60); Estimated Creatinine Clearance 30.95 ml/min; Glucose 112 mg/dL (74-106); Potassium 3.8 mmol/L (3.5-5.1); Sodium Level 138 mmol/L (136-145)
--- NOTE | 2023-01-17 16:18 | NURSING ---
DR ACEVEDO FOR DR POWELL
--- NOTE | 2023-01-17 16:20 | HP.PCM.HOS_ITS ---
HPI - General General Date of Admission: 01/17/23 Date of Service: 01/17/23 Chief Complaint: Left buttock pain with migration radiation to knee, sciatica type for last 1 week. HPI Narrative NIA HAMILTON, is a 82 F has left buttock/back pain ongoing for about 1 week with progressive increasing severity not able to walk/debility for past 1 week. She came to ED twice on 01/13 and 01/15 And was sent home. Patient completed also rehab in April 2021 for acute left ischemic MCA stroke. In ED, patient stated she cannot go back home and needs rehab. She denies fever, acute neurologic symptoms including sudden weakness numbness or saddle like anesthesia. She has decreased ability of ADL notable to perform her usual activities. She also had urine culture done, exact indication unclear on 01/15 which is positive for Klebsiella pneumonia 100,000 colonies. She denies new symptoms of increased frequency urgency or burning micturition in past 1 week therefore it is a symptom enterobacteria. Patient had 1 dose of ceftriaxone in the ED. Patient had hip/pelvic x-ray and lumbar spine x-ray which showed chronic degenerative changes without acute abnormality. Vitals in ED shows elevated blood pressure 160/93 otherwise rest in normal range . [facility] Medical History Acute on chronic anemia Anxiety Anxiety and depression Benzodiazepine dependence Chronic heart failure with preserved ejection fraction (HFpEF) Chronic pain disorder Chronic renal failure, stage 2 (mild) Cystitis Debility Depression Diabetes mellitus, type 2 Essential hypertension Frequent falls History of CVA (cerebrovascular accident) (04/07/21) History of traumatic brain injury (03/2020) Hypomagnesemia Insomnia Iron deficiency anemia Kidney disease Neuropathic pain Opioid dependence Osteoarthritis Poor dentition Pulmonary hypertension Received intravenous tissue plasminogen activator (tPA) in emergency department Right foot drop Right shoulder pain Right wrist fracture Secondary pulmonary arterial hypertension Sleep-disordered breathing Stroke/cerebrovascular accident Home Medications acetaminophen 325 mg tablet (Tylenol) 650 mg PO Q6H PRN PRN PAIN #0 tabs 05/04/21 [Rx Last Taken Unknown] atorvastatin 40 mg tablet 40 mg PO QHS cholesterol #30 tabs 05/04/21 [Rx Last Taken Unknown] buspirone 10 mg tablet 10 mg PO TID #90 tabs 05/04/21 [Rx Last Taken Unknown] clopidogrel 75 mg tablet 75 mg PO DAILY #30 tabs 05/04/21 [Rx Last Taken Unknown] metformin 500 mg tablet 500 mg PO BID diabetes #60 tabs 05/04/21 [Rx Last Taken Unknown] pantoprazole 40 mg tablet,delayed release 40 mg PO DAILY reflux #300 tabs 05/04/21 [Rx Last Taken 04/06/21] quetiapine 25 mg tablet 25 mg PO DAILY #120 tabs 05/04/21 [Rx Last Taken Unknown] saliva substitute combo no.9 (Biotene Dry Mouth Oral Rinse mouthwash) 15 ml mucous membrane 5X/DAY PRN Dry Mouth #0 mL 05/04/21 [Rx Last Taken Unknown] cyclobenzaprine 5 mg tablet 5 mg PO TID PRN muscle spasm #10 tabs 01/13/23 [Rx Last Taken Unknown] lidocaine 5 % topical patch (Lidoderm) 1 patch topical DAILY #15 ea 01/15/23 [Rx Last Taken Unknown] tizanidine 4 mg capsule 4 mg PO Q8H PRN muscle spasticity #15 caps 01/15/23 [Rx Last Taken Unknown] ergocalciferol (vitamin D2) 1,250 mcg (50,000 unit) capsule (Vitamin D2) 50,000 unit PO MO 01/17/23 [History Last Taken Unknown] ferrous gluconate 324 mg (37.5 mg iron) tablet 150 mg PO BID 01/17/23 [History Last Taken Unknown] guaifenesin 600 mg tablet, extended release 12 hr (Mucinex) 600 mg PO BID 01/17/23 [History Last Taken Unknown] lisinopril 20 mg tablet 40 mg PO DAILY blood pressure 01/17/23 [History Last Taken Unknown] metoprolol succinate 50 mg tablet,extended release 24 hr 50 mg PO BID 01/17/23 [History Last Taken Unknown] quetiapine 25 mg tablet 75 mg PO QHS 01/17/23 [History Last Taken Unknown] Allergy/AdvReac Type Severity Reaction Status Date / Time morphine AdvReac delirium Verified 01/13/23 12:28 Family History Father Brain tumor Hypertension Mother Gallbladder disease Hypertension Other Diabetes Surgical History History of hip replacement History of open reduction and internal fixation (ORIF) procedure Social History household members: none number of children: 3 current occupational status: retired and disabled pets and animals: Yes pets and animals: cat(s) leisure activities: reading and other other: likes to watch educational documentaries on TV Smoking Status: Never smoker alcohol intake: never substance use type: does not use ROS ROS Narrative Constitutional: Reports fatigue and weakness, physical debility. HEENT: Reports systems reviewed and no addt'l complaints, except as documented Respiratory/Chest: Denies chest pain, shortness of breath at rest or with exertion Gastrointestinal: Denies coffee ground emesis, hematemesis or vomiting. No abdominal pain. Genitourinary: Denies burning urination or new urinary tract symptoms Musculoskeletal: Reports joint pain and limited range of motion especially of le ft hip and buttock region. Chronic right shoulder pain which required lidocaine injection in April 2021 in rehab Neurologic: Denies seizure-like activity. Previous stroke in 2020. skin: No ulcer. No rash Endocrinology: Reports systems reviewed and no addt'l complaints, except as documented Hematologic/Lymphatic: Reports systems reviewed and no addt'l complaints, except as documented Rest 14 ROS are negative except as mentioned in HPI Vital Signs Vital Signs Vital Signs: 01/17/23 14:46 Temperature 98 F Temperature Source Oral Pulse Rate 84 Respiratory Rate 18 Blood Pressure 160/93 H Blood Pressure Mean 115 Pulse Ox 100 Oxygen Delivery Method Room Air Weight Weight: 139 lb 1.787 oz Body Mass Index (BMI) 21.7 Physical Exam Narrative Physical exam General: Alert, Oriented x3, Cooperative HEENT: Atraumatic, PERRLA, EOMI, Normocephalic Oral: Oral mucosa moist. No Gingival or Mucosal Lesions/ Ulcerations Neck: Supple, No JVD, Negative Carotid Bruits Lungs: Air entry diminished in bilateral lung bases. No crepitation/rhonchi Cardiovascular: Regular rate, Regular Rhythm, Normal S1, Normal S2, No murmurs Abdomen: Bowel Sounds Present, Soft, Non Tender, Non-Distended : No dysuria. No renal angle tenderness. No suprapubic tenderness. Extremities/spine: No edema, Capillary Refill Less than 3 Seconds Skin: No rashes, No breakdown Musculoskeletal/spine: Mild scoliosis of thoracic spine. Tenderness present over left ischial region. The left SLR gives rise to left buttock pain. Chron ic right foot drop Neurological: Chronic left facial droop, DTR 2+/4 and Symmetrical, muscle strength 5/5 at right hip and right knee but 4+/5 at left hip due to pain. Psych/Mental Status: Normal Affect, Appropriate. Results Lab / Micro Data Result Diagrams: 01/17/23 15:20 01/17/23 15:20 Labs: Laboratory Results - last 24 hr 01/17/23 15:20: WBC 8.4, RBC 3.68 L, Hgb 11.1 L, Hct 35.9 L, MCV 97.6, MCH 30.2, MCHC 30.9 L, RDW Std Deviation 56.9 H, RDW Coeff of Alvarado 15.8 H, Plt Count 316, MPV 9.7, Immature Gran % (Auto) 0.400, Neut % (Auto) 80.5 H, Lymph % (Auto) 7.3 L, [place] % (Auto) 8.1, Eos % (Auto) 2.6, Baso % (Auto) 1.1 H, Absolute Neuts (auto) 6.8, Absolute Lymphs (auto) 0.62 L, Nucleated RBC % 0 01/17/23 15:20: Sodium 138, Potassium 3.8, Chloride 105, Carbon Dioxide 21.0, Anion Gap 12, BUN 24 H, Creatinine 1.41 H, Estim Creat Clear Calc 30.95, Est GFR (MDRD) Af Amer 46 L, Est GFR (MDRD) Non-Af 38 L, BUN/Creatinine Ratio 17.0, Glucose 112 H, Calcium 9.2 Assessment & Plan Assessment/Plan (1) Musculoskeletal back pain: (2) Inability to perform activities of daily living: PLAN: Plan 1. Acute debility due to left musculoskeletal back pain/buttock pain, sciatica in nature: Patient is not able to perform ADL, stand up or walk. Patient had a pelvis x-ray which shows bilateral hip replacement but no acute abnormality. Patient further had lumbar spine x-ray which shows degenerative changes, levoscoliosis but no acute abnormality. PT OT. safety and security manager consult for evaluation for subacute rehab placement. 2. Bilateral hip replacement: Patient does not merit for MRI because of bilateral hip prosthesis. Patient does not have acute neurological symptoms also. 3. Asymptomatic bacteriuria: Urine culture shows more than 1000 colonies of Klebsiella pneumoniae but patient does not have acute lower urinary tract symptoms or fever. Patient had 1 dose of IV ceftriaxone. Discussed with the patient's 2 daughters, one of them is nurse about asymptomatic bacteriuria and they agree for no further antibiotic treatment. 4. CKD stage IIIb: Patient last creatinine 0.91 in April 2021 no further kidney function in almost last 2 years. Currently patient creatinine 1.4, BUN 24 estimated creatinine clearance about 31 mL/min. Monitor kidney function tomorrow. Hold lisinopril. 5. History of left MCA stroke in 2020 status post tPA.At that time echo showed EF 55%, RSVP 61 demonstrating moderate pulmonary hypertension. 6. Anemia of chronic disease: MCV normal. Hemoglobin on baseline 1.1 g. 7. Diabetes mellitus type 2: Patient on metformin continued. A1c 7.9 in March 2021. 8. Anxiety/depression: Continue home antidepression medication. Living will/advanced directive/end of life care: Patient does not have living will or advanced directive. She does not have designated power of attorney recruiter for health. Her 2 daughters accompanied her in ED. After discussion of benefits/risks procedures involved with full code, DNR CC arrest and DNR CC with patient and her 2 daughters, the patient opted for full code. Patient does want artificial life support including intubation, tube feed, ventilator and/chest compression, central venous catheter, vasopressor and DC shock if needed Total time spent in [id number] encounter in discussion of advanced directive 17 minutes. Laboratory Results 01/17/23 15:20: WBC 8.4, RBC 3.68 L, Hgb 11.1 L, Hct 35.9 L, MCV 97.6, MCH 30.2, MCHC 30.9 L, RDW Std Deviation 56.9 H, RDW Coeff of Alvarado 15.8 H, Plt Count 316, MPV 9.7, Immature Gran % (Auto) 0.400, Neut % (Auto) 80.5 H, Lymph % (Auto) 7.3 L, [place] % (Auto) 8.1, Eos % (Auto) 2.6, Baso % (Auto) 1.1 H, Absolute Neuts (auto) 6.8, Absolute Lymphs (auto) 0.62 L, Nucleated RBC % 0 01/17/23 15:20: Sodium 138, Potassium 3.8, Chloride 105, Carbon Dioxide 21.0, Anion Gap 12, BUN 24 H, Creatinine 1.41 H, Estim Creat Clear Calc 30.95, Est GFR (MDRD) Af Amer 46 L, Est GFR (MDRD) Non-Af 38 L, BUN/Creatinine Ratio 17.0, Glucose 112 H, Calcium 9.2 Charges/Coding Visit Charges Inpatient E&M: 19065 Init Hosp L3 Procedures Hospitalists Procedures: 74374 Advncd Care Plan 30 Min
[2023-01-17 16:29] VITALS: BP 143/99; PULSE 87; RESP 16; TEMP 36.4; O2SAT 98
--- NOTE | 2023-01-17 16:29 | NURSING ---
MED SURG OBS CURTIS INTRACTABLE LEFT HIP PAIN, INABILITY TO PERFORM ADLS
[2023-01-17 17:32] VITALS: BP 167/93; PULSE 81; RESP 18; TEMP 36.8; O2SAT 98
[2023-01-17 17:35] VITALS: BMI 21.0
[2023-01-17] MEDS: Enoxaparin 30 MG/0.3 ML Syringe SC (18:12)
[2023-01-17] MEDS: Lidocaine 5% Patch 1 PATCH TOPICAL (18:13)
[2023-01-17] MEDS: 0.9% Saline Lock 10 ML Syringe IV (18:13)
[2023-01-17] MEDS: Lactated Ringers 1,000 ML 75 ML IV (18:14)
[2023-01-17 20:09] VITALS: O2SAT 91
[2023-01-17] MEDS: Ondansetron 4 MG/2 ML Vial IV (20:42)
[2023-01-17 21:54] VITALS: BP 139/84; PULSE 95; RESP 18; TEMP 36.8; O2SAT 98
[2023-01-17] MEDS: Clopidogrel Bisulfate 75 MG Tablet PO (22:00)
[2023-01-17 22:01] VITALS: BP 139/84; PULSE 95
[2023-01-17] MEDS: Pantoprazole Sodium 40 MG Tablet PO (22:01)
[2023-01-17] MEDS: busPIRone 5 MG Tablet 10 MG PO (22:01)
[2023-01-17] MEDS: cycloBENZAPRine HCl 5 MG TABLET PO (22:01)
[2023-01-17] MEDS: Metoprolol Tartrate 50 MG Tablet PO (22:01)
[2023-01-17] MEDS: Atorvastatin Calcium 40 MG Tablet PO (22:01)
[2023-01-17] MEDS: Iron Polysaccharide Complex 150 MG CAPSULE PO (22:01)
[2023-01-17] MEDS: QUEtiapine 25 MG Tablet 75 MG PO (22:01)
[2023-01-18] VITALS (8 sets, daily range): BP systolic 103–156; BP diastolic 70–113; PULSE 64–80; RESP 16–18; TEMP 36.3–36.7; O2SAT 92–98
[2023-01-18] MEDS: cycloBENZAPRine HCl 5 MG TABLET PO (04:26)
[2023-01-18] MEDS: busPIRone 5 MG Tablet 10 MG PO ×3 (04:26→22:42)
[2023-01-18 06:10] LABS: Absolute Lymphocyte Count 0.73 X10^3/uL (0.83-4.51); Absolute Neutrophil Count 4.1 X10^3/uL (2.0-7.7); Basophil# 0.05 X10^3/uL; Basophil% 0.9 % (0-1); Eosinophil# 0.24 X10^3/uL; Eosinophils% 4.2 % (0-5); Hematocrit 32.9 % (37-47); Hemoglobin 10.3 g/dL (12.0-15.0); Lymphocyte # 0.73 X10^3/ul (0.83-4.51); Lymphocyte % 12.9 % (19-41); Mean Corp Hgb Conc 31.3 g/dL (32-36); Mean Corpuscular Hgb 29.8 pg (27.0-32.0); Mean Corpuscular Volume 95.1 fL (81-99); Mean Platelet Vol. 10.1 fl (6.2-12.0); Monocyte# 0.51 X10^3/uL; NRBC Flagged by Analyzer 0 % (0-5); Neutrophil # 4.13 X10^3/uL (2.7-7.7); Neutrophil % 72.6 % (47-70); Platelet Count 279 K/mm3 (150-450); RBC Distribution Width CV 15.9 % (11.6-14.6); RBC Distribution Width SD 55.7 fl (35.1-43.9); Red Blood Count 3.46 M/mm3 (4.2-5.4); White Blood Count 5.7 K/mm3 (4.4-11.0)
[2023-01-18] MEDS: Acetaminophen 325 MG Tablet 650 MG PO ×3 (06:48→23:15)
[2023-01-18 06:55] LABS: Anion Gap 9 (5-15); BUN 23 mg/dL (7-18); Calcium,Total 8.8 mg/dL (8.5-10.1); Chloride 105 mmol/L (98-107); Creatinine, Serum 1.15 mg/dL (0.55-1.02); EST Glomerular Filtration Rate 48 mL/min (>60); Est Glom Filt Rate - Afr Amer 58 mL/min (>60); Glucose 94 mg/dL (74-106); Potassium 3.5 mmol/L (3.5-5.1); Sodium Level 137 mmol/L (136-145)
[2023-01-18] MEDS: Lidocaine 5% Patch 1 PATCH TOPICAL (07:37)
[2023-01-18] MEDS: Senna/Docusate Sodium 1 Tablet 2 TABLET PO (07:39)
[2023-01-18] MEDS: Metoprolol Tartrate 50 MG Tablet PO ×2 (07:40→22:42)
[2023-01-18] MEDS: metFORMIN HCl 500 MG Tablet PO ×2 (07:40→16:50)
[2023-01-18] MEDS: Enoxaparin 30 MG/0.3 ML Syringe SC (07:40)
[2023-01-18] MEDS: QUEtiapine 25 MG Tablet PO (07:41)
--- NOTE | 2023-01-18 07:43 | PN.HOSP_ITS ---
Reason for Visit Reason for Visit: Diagnoses Dorsalgia, unspecified (01/17/23) Other specified health status (01/17/23) Subjective Subjective Is complaining of left hip pain for the past few days. Worse when she tries to stand up been unable to bear weight because of that. Has never had any issues like this before. Objective Data Objective Data Vital Signs: Vital Signs Temp Pulse Resp BP Pulse Ox O2 Del Method 36.6 C 74 18 103/73 94 Room Air 01/18/23 04:22 01/18/23 04:22 01/18/23 04:22 01/18/23 04:22 01/18/23 04:22 01/18/23 04:22 Oxygen Delivery Method Room Air Weight: 59.1 kg Body Mass Index (BMI) 21.0 Intake & Output: Intake and Output for Last 24 Hours 01/16/23 01/17/23 01/18/23 23:59 23:59 23:59 Intake Total 170 / 170 943.75 / 943.75 Output Total 300 / 300 Balance 170 / 170 643.75 / 643.75 Lab / Micro Data Result Diagrams: 01/18/23 05:30 01/18/23 05:30 Labs: Laboratory Results - last 24 hr 01/17/23 15:20: WBC 8.4, RBC 3.68 L, Hgb 11.1 L, Hct 35.9 L, MCV 97.6, MCH 30.2, MCHC 30.9 L, RDW Std Deviation 56.9 H, RDW Coeff of Alvarado 15.8 H, Plt Count 316, MPV 9.7, Immature Gran % (Auto) 0.400, Neut % (Auto) 80.5 H, Lymph % (Auto) 7.3 L, [place] % (Auto) 8.1, Eos % (Auto) 2.6, Baso % (Auto) 1.1 H, Absolute Neuts (auto) 6.8, Absolute Lymphs (auto) 0.62 L, Nucleated RBC % 0 01/17/23 15:20: Sodium 138, Potassium 3.8, Chloride 105, Carbon Dioxide 21.0, Anion Gap 12, BUN 24 H, Creatinine 1.41 H, Estim Creat Clear Calc 30.95, Est GFR (MDRD) Af Amer 46 L, Est GFR (MDRD) Non-Af 38 L, BUN/Creatinine Ratio 17.0, Glucose 112 H, Calcium 9.2 01/18/23 05:30: WBC 5.7, RBC 3.46 L, Hgb 10.3 L, Hct 32.9 L, MCV 95.1, MCH 29.8, MCHC 31.3 L, RDW Std Deviation 55.7 H, RDW Coeff of Alvarado 15.9 H, Plt Count 279, MPV 10.1, Immature Gran % (Auto) 0.400, Neut % (Auto) 72.6 H, Lymph % (Auto) 12.9 L, [place] % (Auto) 9.0, Eos % (Auto) 4.2, Baso % (Auto) 0.9, Absolute Neuts (auto) 4.1, Absolute Lymphs (auto) 0.73 L, Nucleated RBC % 0 01/18/23 05:30: Sodium 137, Potassium 3.5, Chloride 105, Carbon Dioxide 23.0, Anion Gap 9, BUN 23 H, Creatinine 1.15 H, Estim Creat Clear Calc 36.40, Est GFR (MDRD) Af Amer 58 L, Est GFR (MDRD) Non-Af 48 L, BUN/Creatinine Ratio 20.0, Glucose 94, Calcium 8.8 Physical Exam Const alert and no apparent distress Neck no lymphadenopathy Extremity Extremity Narrative: Reproducible left hip pain extending distally down her posterior leg. Neuro oriented x3, moves all extremities and no focal motor deficits Assessment & Plan Assessment/Plan (1) Left leg pain: PLAN: Suspect sciatica versus piriformis syndrome. Looked at the patient's x-ray patient has marked left convexity scoliosis and also appears to have a possible compression fracture of L5. Recommended MRI of her lumbar spine. Patient agreeable. 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 PT OT May consider steroids based on the findings of the MRI. (2) Bacteriuria: PLAN: Asymptomatic bacteriuria: Urine culture shows more than 100k colonies of Klebsiella pneumoniae but patient does not have acute lower urinary tract symptoms or fever. Patient had 1 dose of IV ceftriaxone. Discussed with the patient's 2 daughters, one of them is nurse about asymptomatic bacteriuria and they agree for no further antibiotic treatment. Urinalysis on the was unremarkable. Repeat urinalysis on the only showed 0-5 white blood cells. No treatment indicated. PLAN: Plan Chronic conditions * Bilateral hip replacement: Patient does not merit for MRI because of bilateral hip prosthesis. Patient does not have acute neurological symptoms also * CKD stage IIIb: Patient last creatinine 0.91 in April 2021 no further kidney function in almost last 2 years. Currently patient creatinine 1.4, BUN 24 estimated creatinine clearance about 31 mL/min. Monitor kidney function tomorrow. Hold lisinopril. * History of left MCA stroke in 2020 status post tPA.At that time echo showed EF 55%, RSVP 61 demonstrating moderate pulmonary hypertension. * Anemia of chronic disease: MCV normal. Hemoglobin on baseline 1.1 g. * Diabetes mellitus type 2: Patient on metformin continued. A1c 7.9 in March 2021. * Anxiety/depression: Continue home antidepression medication. Charges/Coding Visit Charges Inpatient E&M: 21771 Subs Hosp L2
[2023-01-18] MEDS: Pantoprazole Sodium 40 MG Tablet PO (07:44)
[2023-01-18] MEDS: Clopidogrel Bisulfate 75 MG Tablet PO (07:44)
--- NOTE | 2023-01-18 09:41 | MRI_ITS ---
We are attempting to reach an attending provider to discuss findings. An addendum with communication details will be sent when the communication is complete. STUDY: MRI LUMBAR SPINE WITHOUT CONTRAST REASON FOR EXAM: Female, 82 years old. Left leg pain, unable to walk TECHNIQUE: Standardized fat and water weighted pulse sequences were obtained in the sagittal and axial planes. COMPARISON: Lumbar spine radiographs 01/13/2023. FINDINGS: T9-T10: (Sagittal only). Normal endplates. Pronounced disc space height narrowing minimal ventral extradural defect due to small posterior bulging annulus. Normal central canal and right intervertebral neural foramen. The left intervertebral neural foramen is not included. T10-T11: (Sagittal only). Normal T10 inferior endplate. Old central compression fracture of the upper T11 vertebral body. Moderate lower anterior wedge compression fracture with moderate abnormal bone marrow edema in the lower T11 vertebral body due to recent fracture. Moderate right-sided disc space height narrowing. Mild right lateral subluxation of T10 on T11. No ventral extradural defect. Normal central canal and bilateral intervertebral neural foramina. T11-T12: Recent compression fracture of the lower T11 vertebral body. Normal T12 superior endplate. Pronounced right-sided disc space height narrowing. Mild right lateral subluxation of T11 on T12. Prominent right lateral marginal spurs. No ventral extradural defect. Normal central canal and bilateral lateral recesses. Mild asymmetric degenerative facet arthropathy. Round benign focal fatty infiltration in the T11 vertebral body. Normal left intervertebral neural foramen. Pronounced stenosis of the right intervertebral neural foramen. T12-L1: Normal endplates. Pronounced right-sided disc space height narrowing. Tiny ventral extradural defect is posterior bulging annulus. Mild asymmetric degenerative facet arthropathy. Normal central canal and bilateral lateral recesses. Pronounced stenosis of the right intervertebral neural foramen. Normal left intervertebral neural foramen. Normal lumbar lordosis. Moderate levoscoliosis of the upper lumbar spine/thoracolumbar junction. Normal conus medullaris that terminates at the L1-L2 disc space level. L1-2: Pronounced right-sided disc space height narrowing. Normal endplates. Mild asymmetric degenerative facet arthropathy. Normal central canal and bilateral lateral recesses. Mild stenosis of the right intervertebral neural foramen. Normal left intervertebral neural foramen. L2-3: Mild Modic type II tear intervertebral marrow fat infiltration underneath the vertebral endplates. Moderate disc space height narrowing. Grade 1 left lateral subluxation of L2 on L3. Mild bilateral degenerative facet arthropathy. Mild central canal stenosis with an AP canal diameter of 10 mm. Normal bilateral lateral recesses. Pronounced stenosis of the right intervertebral neural foramen. Normal left intervertebral neural foramen. L3-4: Normal endplates. Grade 1 left lateral subluxation of L3 on L4. Pronounced left-sided disc space height narrowing. Moderate bilateral degenerative facet arthropathy. Mild central canal stenosis with an AP canal diameter of 9 mm. Normal bilateral lateral recesses. Moderate stenosis of the bilateral intervertebral neural foramina. L4-5: Normal endplates. Grade 1 degenerative anterolisthesis of L4 on L5. Mild disc space height narrowing. Moderate bilateral degenerative facet hypertrophy. Pronounced central canal stenosis with an AP canal diameter 5 mm. Mild stenosis of the bilateral lateral recesses. Moderate stenosis of the right intervertebral neural foramen. Pronounced stenosis of the left intervertebral neural foramen with impingement/entrapment of the left L4 nerve. L5-S1: Normal S1 superior endplate. Broad Schmorl''s node in the L5 inferior endplate. Extensive edema of the L5 vertebral marrow. Mild loss of the L5 vertebral body height when compared to L4. Moderate pronounced left ureter facet arthropathy. Moderate right degenerative facet arthropathy. Normal central canal and bilateral lateral recesses. Moderately pronounced stenosis of the left intervertebral neural foramen with impingement/entrapment of the left L5 nerve. Moderate stenosis of the right intervertebral neural foramen.. Tarlov cyst behind S3 body. Diffuse fatty infiltration of the sacral ala and the iliac bones. Normal visualized paraspinous soft tissue structures. MRI/Spine Lumbar (Routine) IMPRESSION: 1. Moderate levo scoliosis at the thoracolumbar junction. 2. Abnormal bone marrow edema underneath the mild central compression fracture of the lower T11 vertebral body is most likely due to recent compression fracture. There is an old central compression fracture of the upper T11 vertebral body without associated bone marrow edema. 3. Broad Schmorl''s node in the L5 inferior endplate with abnormal extensive edema of the L5 vertebral body. This is worrisome for bone neoplasm with pathologic fracture rather than osteoporosis related fracture. This is feasible for fluoroscopy-guided bone biopsy. 4. Pronounced central canal stenosis at L4-L5 disc space level with an AP canal diameter of 5 mm, grade 1 degenerative anterolisthesis of L4 on L5, pronounced stenosis of the left intervertebral neural foramen and moderate stenosis of the right intervertebral neural foramen. 5. Moderately pronounced stenosis of the left L5-S1 intervertebral neural foramen with impingement/entrapment of the left L5 nerve and moderate stenosis of the right L5-S1 intervertebral neural foramen. 6. Mild central canal stenosis at L3-L4 disc space level with an AP canal diameter of 9 mm, grade 1 left lateral subluxation of L3 on L4 and moderate stenosis of the bilateral intervertebral neural foramina. 7. Grade 1 left lateral subluxation of L2 on L3, mild central canal stenosis with an AP canal diameter of 10 mm and pronounced stenosis of the right intervertebral neural foramen. 8. No MRI evidence of lumbar extruded disc fragment. Electronically Signed: Ralf Kiran MD at 13:41 EST ,
[2023-01-18] MEDS: Iron Polysaccharide Complex 150 MG CAPSULE PO (09:44)
--- NOTE | 2023-01-18 09:48 | NURSING ---
pt stated she should be fine with mri with out sedation.
[2023-01-18 11:56] LABS: Mucous, Urine 0 SEEN /hpf (<or=2+); Red Blood Cells-Urine 0 SEEN /hpf (0-5)
[2023-01-18 12:02] LABS: Color, Urine Yellow (Yellow); Glucose, Dipstick Normal (Normal); Ketone-Dipstick 5 mg/dl (Negative); Leukocyte Esterase-Dipstick 25 /ul (Negative); Nitrite-Dipstick Positive (Negative); Occult Blood-Urine Negative /ul (Negative); Protein-Dipstick 15 mg/dl (Negative); Specific Gravity, Urine 1.015 (1.002-1.030); Urine Bilirubin Dipstick Negative (Negative); Urine Clarity Clear (Clear); Urine Urobilinogen Normal (Normal)
--- NOTE | 2023-01-18 12:18 | NURSING ---
pt in mri
[2023-01-18 12:27] LABS: Bacteria 1+ /hpf (None Seen); White Blood Cells 0-5 SEEN /hpf (0-5)
[2023-01-18 12:28] LABS: Squamous Epithelial Cells - UA 0-5 SEEN /hpf (5-10)
[2023-01-18 12:44] LABS: Vitamin D,25 Hydroxy 58.7 ng/mL
--- NOTE | 2023-01-18 14:20 | CASEMGMT ---
JOSE MOONEY in to discuss FISCHER form with patient. JOSE MOONEY explained FISCHER form, patient voiced understanding. Pt signed form and filed in chart. Pt provided with a copy of signed FISCHER form. Noted therapy notes, discussed with patient. Patient states she is very painful and cannot function at home. Pt reports she just had a MRI. She does not feel that if this continues she can return home. Pt states she has thought about needing to go to a SNF. She states this is unusual for her as she is usually a very active person. Updated SW. Patient had no further questions or concerns at this time.
--- NOTE | 2023-01-18 14:48 | CASEMGMT ---
Social Work ? SW in to meet with pt following update from RN JESICA that pt feels may need placement at nursing facility. SW introduced self and role at the hospital. Pt agreeable to discussing discharge planning. A list of SNF providers including quality and resource use data consistent with the patient?s preferred geographic region, medical needs, and insurance network were provided from the [employer]. Pt reviewed list but asked if an answer can be given later this day as pt would like to discuss with daughter. Pt stated if daughter able, pt would like to go home and see if daughter is able to stay with pt. Pt did say if SNF needed then [facility] would be choice. Pt stated would speak to daughter after 6pm when daughter gets off work. SW did explain need for timely choices as insurance and referral process to SNF can take some time. 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 PLAN: SNF vs. Home ZAHIRA Latif?
--- NOTE | 2023-01-18 15:18 | CON.PCM.OR_ITS ---
HPI Consult Data Date of Consult: 01/18/23 HPI Narrative Reason for Consultation: Acute back pain radiating to the left lower extremity HPI Narrative: NIA HAMILTON, is a 82 F who presents with acute back pain radiating to the left lower extremity for the past 6 days. Onset was insidious. She denies any history of back injuries or back surgeries. She describes pain mostly in the left gluteal region and frequently radiating to the left posterior lateral thigh. She denies any other acute numbness tingling weakness or changes in bow el or bladder function. She presented to the ER where she was subsequently admitted. A lumbar MRI was performed which showed a pathologic fracture of L5 and orthospine was consulted for evaluation and management. She is lying in bed resting comfortably. She is not in any pain currently but she does describe pain especially with attempted ambulation in the left gluteal region and left posterior lateral thigh. She denies any other complaints including fever chills, nausea or vomiting. She denies any history of cancer. [facility] Medical History Acute on chronic anemia Anxiety Anxiety and depression Benzodiazepine dependence Chronic heart failure with preserved ejection fraction (HFpEF) Chronic pain disorder Chronic renal failure, stage 2 (mild) Cystitis Debility Depression Diabetes mellitus, type 2 Essential hypertension Frequent falls History of CVA (cerebrovascular accident) (04/07/21) History of traumatic brain injury (03/2020) Hypomagnesemia Insomnia Iron deficiency anemia Kidney disease Neuropathic pain Opioid dependence Osteoarthritis Poor dentition Pulmonary hypertension Received intravenous tissue plasminogen activator (tPA) in emergency department Right foot drop Right shoulder pain Right wrist fracture Secondary pulmonary arterial hypertension Sleep-disordered breathing Stroke/cerebrovascular accident Home Medications acetaminophen 325 mg tablet (Tylenol) 650 mg PO Q6H PRN PRN PAIN #0 tabs 05/04/21 [Rx Last Taken Unknown] atorvastatin 40 mg tablet 40 mg PO QHS cholesterol #30 tabs 05/04/21 [Rx Last Taken Unknown] buspirone 10 mg tablet 10 mg PO TID #90 tabs 05/04/21 [Rx Last Taken Unknown] clopidogrel 75 mg tablet 75 mg PO DAILY #30 tabs 05/04/21 [Rx Last Taken Unknown] metformin 500 mg tablet 500 mg PO BID diabetes #60 tabs 05/04/21 [Rx Last Taken Unknown] pantoprazole 40 mg tablet,delayed release 40 mg PO DAILY reflux #300 tabs 05/04/21 [Rx Last Taken 04/06/21] quetiapine 25 mg tablet 25 mg PO DAILY #120 tabs 05/04/21 [Rx Last Taken Unknown] saliva substitute combo no.9 (Biotene Dry Mouth Oral Rinse mouthwash) 15 ml mucous membrane 5X/DAY PRN Dry Mouth #0 mL 05/04/21 [Rx Last Taken Unknown] cyclobenzaprine 5 mg tablet 5 mg PO TID PRN muscle spasm #10 tabs 01/13/23 [Rx Last Taken Unknown] lidocaine 5 % topical patch (Lidoderm) 1 patch topical DAILY #15 ea 01/15/23 [Rx Last Taken Unknown] tizanidine 4 mg capsule 4 mg PO Q8H PRN muscle spasticity #15 caps 01/15/23 [Rx Last Taken Unknown] ergocalciferol (vitamin D2) 1,250 mcg (50,000 unit) capsule (Vitamin D2) 50,000 unit PO MO 01/17/23 [History Last Taken Unknown] ferrous gluconate 324 mg (37.5 mg iron) tablet 150 mg PO BID 01/17/23 [History Last Taken Unknown] guaifenesin 600 mg tablet, extended release 12 hr (Mucinex) 600 mg PO BID 01/17/23 [History Last Taken Unknown] lisinopril 20 mg tablet 40 mg PO DAILY blood pressure 01/17/23 [History Last Taken Unknown] metoprolol succinate 50 mg tablet,extended release 24 hr 50 mg PO BID 01/17/23 [History Last Taken Unknown] quetiapine 25 mg tablet 75 mg PO QHS 01/17/23 [History Last Taken Unknown] Allergy/AdvReac Type Severity Reaction Status Date / Time morphine AdvReac delirium Verified 01/13/23 12:28 Family History Father Brain tumor Hypertension Mother Gallbladder disease Hypertension Other Diabetes Surgical History History of hip replacement History of open reduction and internal fixation (ORIF) procedure Social History household members: none number of children: 3 current occupational status: retired and disabled pets and animals: Yes pets and animals: cat(s) leisure activities: reading and other other: likes to watch educational documentaries on TV Smoking Status: Never smoker alcohol intake: never substance use type: does not use Vital Signs Vital Signs Vital Signs: 01/17/23 16:29 01/17/23 17:32 01/17/23 17:55 Temperature 97.5 F L 98.3 F Temperature Source Temporal Oral Pulse Rate 87 81 Pulse Strength Respiratory Rate 16 18 Respiratory Effort Normal Respiratory Depth Normal Respiratory Pattern Normal Blood Pressure 143/99 H 167/93 H Blood Pressure Mean 113 117 Blood Pressure Source Monitor Blood Pressure Position Semi-Fowlers Blood Pressure Location Left Arm Pulse Ox 98 98 Oxygen Delivery Method Room Air Room Air Room Air 01/17/23 20:09 01/17/23 21:54 01/17/23 22:01 Temperature 98.2 F Temperature Source Oral Pulse Rate 95 95 Pulse Strength Respiratory Rate 18 Respiratory Effort Respiratory Depth Respiratory Pattern Blood Pressure 139/84 H 139/84 H Blood Pressure Mean 102 Blood Pressure Source Monitor Blood Pressure Position Semi-Fowlers Blood Pressure Location Left Arm Pulse Ox 91 98 Oxygen Delivery Method Room Air Room Air 01/17/23 22:00 01/17/23 22:00 01/18/23 04:22 Temperature 97.9 F Temperature Source Oral Pulse Rate 74 Pulse Strength Normal (2+) Respiratory Rate 18 Respiratory Effort Normal Non-Labored Respiratory Depth Normal Respiratory Pattern Normal Blood Pressure 103/73 Blood Pressure Mean 83 Blood Pressure Source Monitor Blood Pressure Position Semi-Fowlers Blood Pressure Location Left Arm Pulse Ox 94 Oxygen Delivery Method Room Air Room Air 01/18/23 04:20 01/18/23 07:40 01/18/23 08:25 Temperature Temperature Source Pulse Rate 73 Pulse Strength Normal (2+) Respiratory Rate Respiratory Effort Normal Non-Labored Respiratory Depth Normal Respiratory Pattern Normal Blood Pressure Blood Pressure Mean Blood Pressure Source Blood Pressure Position Blood Pressure Location Pulse Ox Oxygen Delivery Method Room Air 01/18/23 08:25 01/18/23 08:25 01/18/23 07:24 Temperature 97.5 F L Temperature Source Oral Pulse Rate 73 Pulse Strength Respiratory Rate 16 Respiratory Effort Normal Respiratory Depth Normal Respiratory Pattern Normal Blood Pressure 116/74 Blood Pressure Mean 88 Blood Pressure Source Monitor Blood Pressure Position Semi-Fowlers Blood Pressure Location Left Arm Pulse Ox 98 92 Oxygen Delivery Method Room Air Room Air Room Air 01/18/23 13:11 01/18/23 13:11 Temperature 98.1 F Temperature Source Oral Pulse Rate 64 Pulse Strength Respiratory Rate 16 Respiratory Effort Normal Respiratory Depth Normal Respiratory Pattern Normal Blood Pressure 131/83 H Blood Pressure Mean 99 Blood Pressure Source Monitor Blood Pressure Position Semi-Fowlers Blood Pressure Location Right Arm Pulse Ox 93 Oxygen Delivery Method Room Air Room Air Weight Weight: 130 lb 4.691 oz Body Mass Index (BMI) 21.0 Physical Exam Const alert, oriented x3 and no apparent distress General Appearance: cooperative, comfortable and well kempt HEENT normocephalic and head/scalp atraumatic Eyes EOMs intact bilaterally and conjunctivae normal Neck full ROM General: normal visual inspection Chest inspection of chest normal and palpation of chest normal Resp normal respiratory effort and normal air movement Effort and Inspection: able to speak in complete sentences Cardio regular rate and peripheral pulses 2+ throughout GI soft to palpation, non-tender and non-distended Back/Spine Back/Spine Narrative: No tenderness of the spine Cervical Spine: cervical ROM normal Thoracic Spine / Upper Back: normal to inspection Lumbar Spine / Lower Back: normal to inspection Extremity normal to inspection, full ROM, normal capillary refill, no clubbing, cyanosis or edema and no calf tenderness Skin no rashes or lesions noted General Skin Exam: no breakdown Neuro oriented x3, CN's II-XII intact bilaterally, moves all extremities, no focal motor deficits, no sensory deficits noted and deep tendon reflexes 2+ bilaterally Motor Exam: strength 5/5 throughout and muscle tone normal throughout Lab / Micro Data Result Diagrams: 01/18/23 05:30 01/18/23 05:30 Labs: Laboratory Results - last 24 hr 01/17/23 15:20: WBC 8.4, RBC 3.68 L, Hgb 11.1 L, Hct 35.9 L, MCV 97.6, MCH 30.2, MCHC 30.9 L, RDW Std Deviation 56.9 H, RDW Coeff of [place]var[place] 15.8 H, Plt Count 316, MPV 9.7, Immature Gran % (Auto) 0.400, Neut % (Auto) 80.5 H, Lymph % (Auto) 7.3 L, [place] % (Auto) 8.1, Eos % (Auto) 2.6, Baso % (Auto) 1.1 H, Absolute Neuts (auto) 6.8, Absolute Lymphs (auto) 0.62 L, Nucleated RBC % 0 01/17/23 15:20: Sodium 138, Potassium 3.8, Chloride 105, Carbon Dioxide 21.0, Anion Gap 12, BUN 24 H, Creatinine 1.41 H, Estim Creat Clear Calc 30.95, Est GFR (MDRD) Af Amer 46 L, Est GFR (MDRD) Non-Af 38 L, BUN/Creatinine Ratio 17.0, Glucose 112 H, Calcium 9.2 01/18/23 05:30: WBC 5.7, RBC 3.46 L, Hgb 10.3 L, Hct 32.9 L, MCV 95.1, MCH 29.8, MCHC 31.3 L, RDW Std Deviation 55.7 H, RDW Coeff of [place]var[place] 15.9 H, Plt Count 279, MPV 10.1, Immature Gran % (Auto) 0.400, Neut % (Auto) 72.6 H, Lymph % (Auto) 12.9 L, [place] % (Auto) 9.0, Eos % (Auto) 4.2, Baso % (Auto) 0.9, Absolute Neuts (auto) 4.1, Absolute Lymphs (auto) 0.73 L, Nucleated RBC % 0 01/18/23 05:30: Sodium 137, Potassium 3.5, Chloride 105, Carbon Dioxide 23.0, Anion Gap 9, BUN 23 H, Creatinine 1.15 H, Estim Creat Clear Calc 36.40, Est GFR (MDRD) Af Amer 58 L, Est GFR (MDRD) Non-Af 48 L, BUN/Creatinine Ratio 20.0, Glucose 94, Calcium 8.8 01/18/23 11:30: Urine Color Yellow, Urine Clarity Clear, Urine pH 6.0, Ur Spe cific [place] 1.015, Urine Protein 15 H, Urine Glucose (UA) Normal, Urine Ketones 5 H, Urine Occult Blood Negative, Urine Nitrite Positive H, Urine Bilirubin Negative, Urine Urobilinogen Normal, Ur Leukocyte Esterase 25 H, Urine RBC 0 SEEN, Urine WBC 0-5 SEEN, Ur Squamous Epith Cells 0-5 SEEN, Urine Bacteria 1+, Urine Mucus 0 SEEN 01/18/23 11:37: Vitamin D 25-Hydroxy 58.7 Radiology Impression Lumbar Spine MRI 01/18/23 09:41 IMPRESSION: 1. Moderate levo scoliosis at the thoracolumbar junction. 2. Abnormal bone marrow edema underneath the mild central compression fracture of the lower T11 vertebral body is most likely due to recent compression fracture. There is an old central compression fracture of the upper T11 vertebral body without associated bone marrow edema. 3. Broad Schmorl''s node in the L5 inferior endplate with abnormal extensive edema of the L5 vertebral body. This is worrisome for bone neoplasm with pathologic fracture rather than osteoporosis related fracture. This is feasible for fluoroscopy-guided bone biopsy. 4. Pronounced central canal stenosis at L4-L5 disc space level with an AP canal diameter of 5 mm, grade 1 degenerative anterolisthesis of L4 on L5, pronounced stenosis of the left intervertebral neural foramen and moderate stenosis of the right intervertebral neural foramen. 5. Moderately pronounced stenosis of the left L5-S1 intervertebral neural foramen with impingement/entrapment of the left L5 nerve and moderate stenosis of the right L5-S1 intervertebral neural foramen. 6. Mild central canal stenosis at L3-L4 disc space level with an AP canal diameter of 9 mm, grade 1 left lateral subluxation of L3 on L4 and moderate stenosis of the bilateral intervertebral neural foramina. 7. Grade 1 left lateral subluxation of L2 on L3, mild central canal stenosis with an AP canal diameter of 10 mm and pronounced stenosis of the right intervertebral neural foramen. 8. No MRI evidence of lumbar extruded disc fragment. Electronically Signed: Ralf Kiran MD at 13:41 EST , ADDENDUM: 01/18/23 1414 IMPRESSION: 1. Moderate levo scoliosis at the thoracolumbar junction. 2. Abnormal bone marrow edema underneath the mild central compression fracture of the lower T11 vertebral body is most likely due to recent compression fracture. There is an old central compression fracture of the upper T11 vertebral body without associated bone marrow edema. 3. Broad Schmorl''s node in the L5 inferior endplate with abnormal extensive edema of the L5 vertebral body. This is worrisome for bone neoplasm with pathologic fracture rather than osteoporosis related fracture. This is feasible for fluoroscopy-guided bone biopsy. 4. Pronounced central canal stenosis at L4-L5 disc space level with an AP canal diameter of 5 mm, grade 1 degenerative anterolisthesis of L4 on L5, pronounced stenosis of the left intervertebral neural foramen and moderate stenosis of the right intervertebral neural foramen. 5. Moderately pronounced stenosis of the left L5-S1 intervertebral neural foramen with impingement/entrapment of the left L5 nerve and moderate stenosis of the right L5-S1 intervertebral neural foramen. 6. Mild central canal stenosis at L3-L4 disc space level with an AP canal diameter of 9 mm, grade 1 left lateral subluxation of L3 on L4 and moderate stenosis of the bilateral intervertebral neural foramina. 7. Grade 1 left lateral subluxation of L2 on L3, mild central canal stenosis with an AP canal diameter of 10 mm and pronounced stenosis of the right intervertebral neural foramen. 8. No MRI evidence of lumbar extruded disc fragment. N.B. : The above Results were Read Back by Ralf Kiran MD to Cady Nickerson RN, and understanding confirmed on 01/18/2023 14:07:44 (ET). Electronically Signed: Ralf Kiran MD at 13:41 EST , Assessment & Plan Assessment/Plan (1) Fracture of fifth lumbar vertebra: PLAN: I had a lengthy discussion with the patient. I reviewed her imaging with her. She does have an acute/subacute compression fracture at L5 with mild loss of vertebral body height. The radiologist has commented on suspicious concern for pathologic fracture. After discussing the risk benefits and alternatives and answering all of her questions I recommend an L5 kyphoplasty with biopsy at the time of the procedure. We discussed the procedure in detail along with expected outcome and recovery and she agrees to proceed. We will keep her n.p.o. after midnight and plan to do the procedure tomorrow. She understands and agrees with the treatment plan.
[2023-01-18] MEDS: Atorvastatin Calcium 40 MG Tablet PO (22:42)
[2023-01-18] MEDS: QUEtiapine 25 MG Tablet 75 MG PO (22:43)
[2023-01-19] VITALS (13 sets, daily range): BP systolic 108–186; BP diastolic 71–97; PULSE 69–97; RESP 12–18; TEMP 36.4–37.1; O2SAT 93–100; BMI 21.0
[2023-01-19] MEDS: busPIRone 5 MG Tablet 10 MG PO ×3 (06:17→21:59)
[2023-01-19 07:50] LABS: Hemoglobin A1c 7.8 % (3.8-5.6)
--- NOTE | 2023-01-19 08:09 | PN.HOSP_ITS ---
Reason for Visit Reason for Visit: Diagnoses Dorsalgia, unspecified (01/17/23) Pain in left leg (01/17/23) Bacteriuria (01/17/23) Unspecified fracture of fifth lumbar vertebra, initial encounter for closed fracture (01/17/23) Other specified health status (01/17/23) Subjective Subjective Still with left hip pain. Feels worse today. Objective Data Objective Data Vital Signs: Vital Signs Temp Pulse Resp BP Pulse Ox O2 Del Method 36.6 C 69 12 133/71 H 97 Room Air 01/19/23 04:04 01/19/23 04:04 01/19/23 04:04 01/19/23 04:04 01/19/23 04:04 01/19/23 04:04 Oxygen Delivery Method Room Air Weight: 59.1 kg Body Mass Index (BMI) 21.0 Intake & Output: Intake and Output for Last 24 Hours 01/17/23 01/18/23 01/19/23 23:59 23:59 23:59 Intake Total 170 / 170 1643.75 / 1643.75 500 / 500 Output Total 300 / 300 550 / 550 Balance 170 / 170 1343.75 / 1343.75 -50 / -50 Lab / Micro Data Result Diagrams: 01/18/23 05:30 01/18/23 05:30 Labs: Laboratory Results - last 24 hr 01/18/23 05:30: Hemoglobin A1c 7.8 H 01/18/23 11:30: Urine Color Yellow, Urine Clarity Clear, Urine pH 6.0, Ur Specific [place] 1.015, Urine Protein 15 H, Urine Glucose (UA) Normal, Urine Ketones 5 H, Urine Occult Blood Negative, Urine Nitrite Positive H, Urine Kvng irubin Negative, Urine Urobilinogen Normal, Ur Leukocyte Esterase 25 H, Urine RBC 0 SEEN, Urine WBC 0-5 SEEN, Ur Squamous Epith Cells 0-5 SEEN, Urine Bacteria 1+, Urine Mucus 0 SEEN 01/18/23 11:37: Vitamin D 25-Hydroxy 58.7 Radiography Diagnostic Testing: Radiology Impression Lumbar Spine MRI 01/18/23 09:41 IMPRESSION: 1. Moderate levo scoliosis at the thoracolumbar junction. 2. Abnormal bone marrow edema underneath the mild central compression fracture of the lower T11 vertebral body is most likely due to recent compression fracture. There is an old central compression fracture of the upper T11 vertebral body without associated bone marrow edema. 3. Broad Schmorl''s node in the L5 inferior endplate with abnormal extensive edema of the L5 vertebral body. This is worrisome for bone neoplasm with pathologic fracture rather than osteoporosis related fracture. This is feasible for fluoroscopy-guided bone biopsy. 4. Pronounced central canal stenosis at L4-L5 disc space level with an AP canal diameter of 5 mm, grade 1 degenerative anterolisthesis of L4 on L5, pronounced stenosis of the left intervertebral neural foramen and moderate stenosis of the right intervertebral neural foramen. 5. Moderately pronounced stenosis of the left L5-S1 intervertebral neural foramen with impingement/entrapment of the left L5 nerve and moderate stenosis of the right L5-S1 intervertebral neural foramen. 6. Mild central canal stenosis at L3-L4 disc space level with an AP canal diameter of 9 mm, grade 1 left lateral subluxation of L3 on L4 and moderate stenosis of the bilateral intervertebral neural foramina. 7. Grade 1 left lateral subluxation of L2 on L3, mild central canal stenosis with an AP canal diameter of 10 mm and pronounced stenosis of the right intervertebral neural foramen. 8. No MRI evidence of lumbar extruded disc fragment. Electronically Signed: Ralf Kiran MD at 13:41 EST , ADDENDUM: 01/18/23 1414 IMPRESSION: 1. Moderate levo scoliosis at the thoracolumbar junction. 2. Abnormal bone marrow edema underneath the mild central compression fracture of the lower T11 vertebral body is most likely due to recent compression fracture. There is an old central compression fracture of the upper T11 vertebral body without associated bone marrow edema. 3. Broad Schmorl''s node in the L5 inferior endplate with abnormal extensive edema of the L5 vertebral body. This is worrisome for bone neoplasm with pathologic fracture rather than osteoporosis related fracture. This is feasible for fluoroscopy-guided bone biopsy. 4. Pronounced central canal stenosis at L4-L5 disc space level with an AP canal diameter of 5 mm, grade 1 degenerative anterolisthesis of L4 on L5, pronounced stenosis of the left intervertebral neural foramen and moderate stenosis of the right intervertebral neural foramen. 5. Moderately pronounced stenosis of the left L5-S1 intervertebral neural foramen with impingement/entrapment of the left L5 nerve and moderate stenosis of the right L5-S1 intervertebral neural foramen. 6. Mild central canal stenosis at L3-L4 disc space level with an AP canal diameter of 9 mm, grade 1 left lateral subluxation of L3 on L4 and moderate stenosis of the bilateral intervertebral neural foramina. 7. Grade 1 left lateral subluxation of L2 on L3, mild central canal stenosis with an AP canal diameter of 10 mm and pronounced stenosis of the right intervertebral neural foramen. 8. No MRI evidence of lumbar extruded disc fragment. N.B. : The above Results were Read Back by Ralf Kiran MD to Cady Nickerson RN, and understanding confirmed on 01/18/2023 14:07:44 (ET). Electronically Signed: Ralf Kiran MD at 13:41 EST , Physical Exam Const alert and no apparent distress HEENT head/scalp atraumatic and moist oral mucous membranes Resp normal respiratory effort, no retractions, no use of accessory muscles and clear to auscultation bilaterally Cardio regular rate, regular rhythm, S1 normal heart sound and S2 normal heart sound GI normal to inspection, nondistended, normoactive bowel sounds, soft to palpation, non-tender and non-distended Extremity normal to inspection Assessment & Plan Assessment/Plan (1) Vertebral compression fracture: PLAN: T11 which appears to be chronic and L5. Radiologist was concerned for pathological fracture. Case reviewed with Dr. Maldonado. Plan is for L5 kyphoplasty today and will perform a biopsy 25-hydroxy vitamin D level is 58.7 (2) Left leg pain: PLAN: Suspect sciatica versus piriformis syndrome. Looked at the patient's x-ray patient has marked left convexity scoliosis and also appears to have a possible compression fracture of L5. Recommended MRI of her lumbar spine. Patient agreeable. 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 PT OT May consider steroids based on the findings of the MRI. (3) Bacteriuria: PLAN: Asymptomatic bacteriuria: Urine culture shows more than 100k colonies of Klebsiella pneumoniae but patient does not have acute lower urinary tract symptoms or fever. Patient had 1 dose of IV ceftriaxone. Discussed with the patient's 2 daughters, one of them is nurse about asymptomatic bacteriuria and they agree for no further antibiotic treatment. Urinalysis on the was unremarkable. Repeat urinalysis on the only showed 0-5 white blood cells. No treatment indicated. PLAN: Plan Chronic conditions * Bilateral hip replacement: Patient does not merit for MRI because of bilateral hip prosthesis. Patient does not have acute neurological symptoms also * CKD stage IIIb: Patient last creatinine 0.91 in April 2021 no further kidney function in almost last 2 years. Currently patient creatinine 1.4, BUN 24 estimated creatinine clearance about 31 mL/min. Monitor kidney function tomorrow. Hold lisinopril. * History of left MCA stroke in 2020 status post tPA.At that time echo showed EF 55%, RSVP 61 demonstrating moderate pulmonary hypertension. * Anemia of chronic disease: MCV normal. Hemoglobin on baseline 1.1 g. * Diabetes mellitus type 2: Patient on metformin continued. A1c 7.9 in March 2021. * Anxiety/depression: Continue home antidepression medication. Charges/Coding Visit Charges Inpatient E&M: 35540 Subs Hosp L1
[2023-01-19] MEDS: Lidocaine 5% Patch 1 PATCH TOPICAL (08:24)
[2023-01-19] MEDS: Metoprolol Tartrate 50 MG Tablet PO ×2 (08:25→21:58)
[2023-01-19] MEDS: Acetaminophen 325 MG Tablet 650 MG PO ×2 (11:36→18:38)
[2023-01-19] MEDS: cycloBENZAPRine HCl 5 MG TABLET PO ×2 (11:37→22:22)
--- NOTE | 2023-01-19 12:41 | PCM.OPRPT ---
Problems Associated Problem List Diagnoses (1) Vertebral compression fracture: Report of Operation Date of Procedure: 01/19/23 Pre-Operative Diagnosis: L5 compression fracture Post-Operative Diagnosis: L5 compression fracture Surgery/Procedure Performed:: 1. L5 kyphoplasty 2. L5 bone biopsy Description of Surgical Findings:: The patient was seen in the preoperative holding area. Risks and benefits of the procedure were explained to the patient and informed consent was obtained. The patient was transported to the procedure room and positioned prone. The back was prepped and draped in the usual sterile fashion. Sterile technique was used throughout. Under fluoroscopic guidance the L5 vertebral body was identified. Subsequently skin and subcutaneous tissues were anesthetized with 1% lidocaine. A trocar was inserted and advanced using an orthopedic camera with the tip in the upper outer quadrant of the right L5 pedicle. Under fluoroscopic guidance the trocar was advanced until the tip of the needle was beyond the posterior margin of the vertebral body. At no time did the medial pedicle border get violated. The obturator was removed. A bone biopsy was taken. Then a small drill was used to drill a guide path for placement of the balloon system. The balloon was inserted and inflated creating a cavity of 3 to 5 cc. The balloon was then removed. PMMA cement was delivered using the cannula. About 3 cc of cement was delivered. This was done under fluoroscopic guidance. The trocar was then removed. Pressure was held over the injection site until all bleeding stopped. The patient was given a sterile Band-Aid as a dressing. Surgeon: Christiano Maldonado Type of Anesthesia: Local MAC and MAC Specimen's removed: L5 vertebral body bone Estimated Blood Loss (mL): 1 cc Fluids Replaced: 400 cc Grafts/Implants Used: Leisa Complications None Admit VTE Documentation VTE Present on Admission: No
[2023-01-19] MEDS: Cefazolin 2 GM in 0.9% Normal Saline 100 ML IV (13:24)
--- NOTE | 2023-01-19 13:30 | RAD_ITS ---
CLINICAL HISTORY: Female, 82 years old. Low back pain. PROCEDURE: KYPHOPLASTY - L5 vertebrae. FLUOROSCOPY TIME (if supplied): (73 seconds) minutes/seconds. 22.19 mGy RAD/Spine 1 View Any Level IMPRESSION: Intraoperative imaging provided for kyphoplasty of the L5 vertebrae. Electronically Signed: Avery Pabon MD at 14:58 EST ,
[2023-01-19] MEDS: Lidocaine 1% (30 ml sdv) 30 ML Vial (14:00)
--- NOTE | 2023-01-19 14:15 | BONBX_PTH ---
PATIENT: NIA HAMILTON LOC: [facility] U#:[id number] AGE/SX: 82/F ROOM: [facility] [place] RE01/17/[address]: Dr. Alex Guidry DO : 1940 BED: 1 DIS: 01/20/2023 SPEC #: [id number] RECD: 01/20/23 13:49 STATUS: SCOTT REYasmin #: [id number] SLAVA: 01/19/23 14:[address]: Christiano Maldonado DEPT: SURGICAL PATHOLOGY RECD BY: Sophia Fraga ENTERED: 01/23/23 09:47 SP TYPE: Bone OTHR DR: DO Dr. Christiano Ayala DO Dr. Prakash Chand, MD Christy Haagen, CALLISTHENICS INSTRUCTOR-C Tissues: Vertebra, NOS Procedures: Decalcification bone/plaque Surgery Specimen Level V Comments: @ Ordering doctor for DEC edited from to DR.JWATTS Chuy FAULKNER at 01/23/23 1455 @ Ordering doctor for SUV edited from to DR.JWATTS Chuy FAULKNER at 01/23/23 7898 @ Submitting doctor edited from to DR.JWATTS Chuy FAULKNER at 01/23/23 145 HEADER OPERATION: Kyphoplasty L5 PRE-OP DIAGNOSIS: L5 compression fracture TISSUE SUBMITTED: L5 bone biopsy MICROSCOPIC DIAGNOSIS L5 bone, biopsy: Fragments of bone with extensive callus formation and blood clots, clinically, compression fracture. Negative for malignancy. See comment. SJ:travis 01/24/2023 COMMENT Focal area also shows trilineage hematopoiesis. The specimen predominantly consists of blood clot. Clinical correlation and appropriate follow up are necessary. MICROSCOPIC DESCRIPTION Slides are reviewed. GROSS DESCRIPTION Received in fixative is one container labeled with the patient's name and designated lumbar 5 bone biopsy. The specimen consists of an irregular fragment of tapia bone measuring 1.0 x 0.2 x 0.2 cm. Also present in the specimen container are fragments of blood clot measuring in aggregate 3.0 x 2.0 x 0.2 cm. The specimen is totally submitted in one cassette after decalcification. / AM:travis 01/23/2023 TC:5 CPT: 49944, 95406
--- NOTE | 2023-01-19 15:22 | NURSING ---
Pt is back to floor via bed.
[2023-01-19] MEDS: metFORMIN HCl 500 MG Tablet PO (18:41)
[2023-01-19] MEDS: Atorvastatin Calcium 40 MG Tablet PO (21:58)
[2023-01-19] MEDS: QUEtiapine 25 MG Tablet 75 MG PO (21:58)
[2023-01-20 03:00] VITALS: BP 136/95; PULSE 67; RESP 16; TEMP 36.6; O2SAT 97
[2023-01-20] MEDS: Acetaminophen 325 MG Tablet 650 MG PO ×2 (03:16→09:24)
[2023-01-20] MEDS: busPIRone 5 MG Tablet 10 MG PO ×2 (06:01→14:37)
[2023-01-20] MEDS: cycloBENZAPRine HCl 5 MG TABLET PO ×2 (06:27→14:36)
--- NOTE | 2023-01-20 07:44 | PN.HOSP_ITS ---
Reason for Visit Reason for Visit: Diagnoses Collapsed vertebra, not elsewhere classified, site unspecified, initial encount er for fracture (01/17/23) Dorsalgia, unspecified (01/17/23) Pain in left leg (01/17/23) Bacteriuria (01/17/23) Unspecified fracture of fifth lumbar vertebra, initial encounter for closed fracture (01/17/23) Other specified health status (01/17/23) Subjective Subjective Still with pain in left hip. Though does feel somewhat better. Objective Data Objective Data Vital Signs: Vital Signs Temp Pulse Resp BP Pulse Ox O2 Del Method 36.6 C 67 16 136/95 H 97 Room Air 01/20/23 03:00 01/20/23 03:00 01/20/23 03:00 01/20/23 03:00 01/20/23 03:00 01/20/23 03:00 Oxygen Delivery Method Room Air Weight: 59.1 kg Body Mass Index (BMI) 21.0 Intake & Output: Intake and Output for Last 24 Hours 01/18/23 01/19/23 01/20/23 23:59 23:59 23:59 Intake Total 1643.75 / 1643.75 970 / 970 300 / 300 Output Total 300 / 300 550 / 550 Balance 1343.75 / 1343.75 420 / 420 300 / 300 Lab / Micro Data Result Diagrams: 01/18/23 05:30 01/18/23 05:30 Labs: Laboratory Results - last 24 hr 01/18/23 05:30: Hemoglobin A1c 7.8 H Radiography Diagnostic Testing: Radiology Impression Spine X-Ray 01/19/23 13:30 IMPRESSION: Intraoperative imaging provided for kyphoplasty of the L5 vertebrae. Electronically Signed: Avery Pabon MD at 14:58 EST , Physical Exam Const alert and no apparent distress Psych affect normal Assessment & Plan Assessment/Plan (1) Vertebral compression fracture: QUALIFIERS: Encounter type: initial encounter Fracture of vertebra location: lumbar Lumbar vertebra fracture level: L5 Qualified Code(s): S32.050A - Wedge compression fracture of fifth lumbar vertebra, initial encounter for closed fracture PLAN: T11 which appears to be chronic and L5. Radiologist was concerned for pathological fracture. 25-hydroxy vitamin D level is 58.7 Patient underwent a L5 kyphoplasty and L5 bone biopsy on the by Dr. Maldonado. (2) Left leg pain: PLAN: Suspect sciatica versus piriformis syndrome. No nerve root impingement. May be component of piriformis syndrome. Recommend PT and OT (3) Bacteriuria: PLAN: Asymptomatic bacteriuria: Urine culture shows more than 100k colonies of Klebsiella pneumoniae but patient does not have acute lower urinary tract symptoms or fever. Patient had 1 dose of IV ceftriaxone. Discussed with the patient's 2 daughters, one of them is nurse about asymptomatic bacteriuria and they agree for no further antibiotic treatment. Urinalysis on the was unremarkable. Repeat urinalysis on the only showed 0-5 white blood cells. No treatment indicated. PLAN: Plan Chronic conditions * Bilateral hip replacement: Patient does not merit for MRI because of bilateral hip prosthesis. Patient does not have acute neurological symptoms also * CKD stage IIIb: Patient last creatinine 0.91 in April 2021 no further kidney function in almost last 2 years. Currently patient creatinine 1.4, BUN 24 estimated creatinine clearance about 31 mL/min. Monitor kidney function tomorrow. Hold lisinopril. * History of left MCA stroke in 2020 status post tPA.At that time echo showed EF 55%, RSVP 61 demonstrating moderate pulmonary hypertension. * Anemia of chronic disease: MCV normal. Hemoglobin on baseline 1.1 g. * Diabetes mellitus type 2: Patient on metformin continued. A1c 7.9 in March 2021. * Anxiety/depression: Continue home antidepression medication. * Scoliosis: Traumatic left-sided convexity. New diagnosis but most likely a chronic problem. Debility: Initial plan was for intermediate facility, however the patient is not interested. So plan is for the patient go home with home care. Patient has a rather poor performance status and using a rollator at home and then using wheelchair when she goes out and about for appointments. I expressed concerns about her being on to manage safely at home and that she would be high li kelihood of readmission because of her debility. Patient understands and still wishes to go home. Charges/Coding Visit Charges Inpatient E&M: 93976 Subs Hosp L2
[2023-01-20 08:15] VITALS: O2SAT 97
--- NOTE | 2023-01-20 09:04 | CASEMGMT ---
Addendum entered by Jacey Roca 01/20/23 11:40: Hospitalist notified JOSE MOONEY that pt is agreeable to [facility]. JOSE MOONEY into pt room. Pt states she does not want HH and prefers to just be alone. Patient was provided a list of [facility] providers including quality and resource use data and consistent with the patient?s preferred geographic region, medical needs, and insurance network were provided from the [employer] Guide in case she changes her mind. Pt states she uses no rinse bath wipe cleansers for bathing. She denies any homegoing needs. Original Note: JOSE MOONEY in to pt room, pt sitting up in bed eating breakfast. Pt states her pain has not improved but she is now able to get up and go to the bathroom with the walker. Pt lives in a single story double wide with 3 steps to enter with a rail on both sides. Pt lives alone and states I prefer it that way. Pt has a cane, walker, w/c and hospital bed at home. Pt states she has 3 dtrs who take turns getting her groceries, putting away, light cleaning and laundry. Discussed [facility] therapy, pt states she prefers not to do this. She asked if she could change her mind later. Pt aware that she could call her PCP to get this set up from home if needed. Pt has not yet worked with therapy today. Will follow to see how pt performs.
[2023-01-20 09:18] VITALS: O2SAT 96
[2023-01-20] MEDS: Iron Polysaccharide Complex 150 MG CAPSULE PO (09:24)
[2023-01-20 09:25] VITALS: PULSE 109
[2023-01-20] MEDS: Clopidogrel Bisulfate 75 MG Tablet PO (09:25)
[2023-01-20] MEDS: Lidocaine 5% Patch 1 PATCH TOPICAL (09:25)
[2023-01-20] MEDS: Metoprolol Tartrate 50 MG Tablet PO (09:25)
[2023-01-20] MEDS: metFORMIN HCl 500 MG Tablet PO (09:26)
[2023-01-20] MEDS: Pantoprazole Sodium 40 MG Tablet PO (09:27)
[2023-01-20] MEDS: QUEtiapine 25 MG Tablet PO (09:27)
[2023-01-20 09:34] VITALS: BP 156/84; PULSE 109; RESP 19; TEMP 36.5; O2SAT 98
--- NOTE | 2023-01-20 12:43 | DCINST_ITS ---
Discharge Instructions Diet Discharge Diet: No restrictions Activity Discharge Activity: Use Walker Weight Bearing Status: Weight bearing as tolerated Follow Up Care Test Results: Test results from this visit will be discussed in further detail at your follow- up appointment, if applicable. Discharge Plan Admission Admit Date/Time: 01/17/23 16:18 Primary Reason for Your Visit: L5 lumbar compression fracture. Attending Provider: Alex Guidry Primary Care Provider: Nevin Pantoja TOOL STORAGE ATTENDANT Consulting Providers: Vladimir Rowell ; Christiano Maldonado Discharge Orders/Prescriptions Prescriptions: New oxycodone 5 mg tablet 5 mg PO Q6H PRN (Reason: pain) 3 Days Qty: 12 0RF acetaminophen 500 mg capsule 1,000 mg PO Q8H Qty: 30 0RF Continued quetiapine 25 mg Tablet 25 mg PO DAILY Qty: 120 0RF Rx Instructions: Take 1 tab in the AM and 3 tabs at bedtime clopidogrel 75 mg Tablet 75 mg PO DAILY Qty: 30 0RF Biotene Dry Mouth Oral Rinse Mouthwash 15 ml mucous membrane 5X/DAY PRN (Reason: Dry Mouth) Qty: 0 0RF buspirone 10 mg tablet 10 mg PO TID Qty: 90 0RF atorvastatin 40 mg tablet 40 mg PO QHS Qty: 30 0RF metformin 500 MG tablet 500 mg PO BID Qty: 60 0RF pantoprazole 40 MG tablet 40 mg PO DAILY Qty: 300 0RF cyclobenzaprine 5 mg tablet 5 mg PO TID PRN (Reason: muscle spasm) Qty: 10 0RF lidocaine [Lidoderm] 5 % adhesive patch,medicated 1 patch topical DAILY Qty: 15 0RF Rx Instructions: leave on most painful area for up to 12 hrs quetiapine 25 mg tablet 75 mg PO QHS ergocalciferol (vitamin D2) [Vitamin D2] 1,250 mcg (50,000 unit) Capsule 50,000 unit PO MO guaifenesin [Mucinex] 600 mg Tablet Extended Release 12hr 600 mg PO BID metoprolol succinate 50 mg tablet extended release 24 hr 50 mg PO BID lisinopril 20 MG tablet 40 mg PO DAILY ferrous gluconate 324 mg (37.5 mg iron) tablet 150 mg PO BID Rx Instructions: Take this medication with 500 mg of Vitamin C with supper daily Discontinued acetaminophen [Tylenol] 325 mg Tablet 650 mg PO Q6H PRN PRN (Reason: PAIN) Qty: 0 0RF tizanidine 4 mg capsule 4 mg PO Q8H PRN (Reason: muscle spasticity) Qty: 15 0RF Referrals / Follow Up: Christiano Maldonado DO [Med Staff - Active Staff] - Within 2 Weeks Nevin Pantoja NP, TOOL STORAGE ATTENDANT-C [Primary Care Provider] - Within 2 Weeks Disposition Disposition (needs filled in before D/C Order can be placed): Home Health Service
--- NOTE | 2023-01-20 12:51 | DS.PCM_ITS ---
Providers Date of Admission: 01/17/23 Primary Care Physician: ERNST Padgett Consultations 01/18/23 14:20 Consult: Orthopedics Routine Consulting Provider: Christiano Maldonado Reason for Consult: L5 fxr EMERGENT Consult: No MD Notified: Yes Date Notified: 01/18/23 Time Notified: 14:20 Method of Notification: Verbal Reason For Visit: LEFT HIP PAIN, ARTHRITIS Diagnosis Discharge Diagnosis (1) Vertebral compression fracture: Status: Acute Code(s): M48.50XA - Collapsed vertebra, not elsewhere classified, site unspecified, initial encounter for fracture Qualifiers: Encounter type: initial encounter Fracture of vertebra location: lumbar Lumbar vertebra fracture level: L5 Qualified Code(s): S32.050A - Wedge compression fracture of fifth lumbar vertebra, initial encounter for closed fracture Plan: T11 which appears to be chronic and L5. Radiologist was concerned for pathological fracture. 25-hydroxy vitamin D level is 58.7 Patient underwent a L5 kyphoplasty and L5 bone biopsy on the by Dr. Maldonado. (2) Left leg pain: Status: Acute Code(s): M79.605 - Pain in left leg Plan: Suspect sciatica versus piriformis syndrome. No nerve root impingement. May be component of piriformis syndrome. Recommend PT and OT (3) Bacteriuria: Status: Acute Code(s): R82.71 - Bacteriuria Plan: Asymptomatic bacteriuria: Urine culture shows more than 100k colonies of Klebsiella pneumoniae but patient does not have acute lower urinary tract symptoms or fever. Patient had 1 dose of IV ceftriaxone. Discussed with the patient's 2 daughters, one of them is nurse about asymptomatic bacteriuria and they agree for no further antibiotic treatment. Urinalysis on the was unremarkable. Repeat urinalysis on the only showed 0-5 white blood cells. No treatment indicated. (4) Debility: Status: Acute Code(s): R53.81 - Other malaise Plan: Debility: Initial plan was for intermediate facility, however the patient is not interested. So plan is for the patient go home with home care. Patient has a rather poor performance status and using a rollator at home and then using wheelchair when she goes out and about for appointments. I expressed concerns about her being on to manage safely at home and that she would be high likelihoo d of readmission because of her debility. Patient understands and still wishes to go home. Plan Chronic conditions * Bilateral hip replacement: Patient does not merit for MRI because of bilateral hip prosthesis. Patient does not have acute neurological symptoms also * CKD stage IIIb: Patient last creatinine 0.91 in April 2021 no further kidney function in almost last 2 years. Currently patient creatinine 1.4, BUN 24 estimated creatinine clearance about 31 mL/min. Monitor kidney function tomorrow. Hold lisinopril. * History of left MCA stroke in 2020 status post tPA.At that time echo showed EF 55%, RSVP 61 demonstrating moderate pulmonary hypertension. * Anemia of chronic disease: MCV normal. Hemoglobin on baseline 1.1 g. * Diabetes mellitus type 2: Patient on metformin continued. A1c 7.9 in March 2021. * Anxiety/depression: Continue home antidepression medication. * Scoliosis: Traumatic left-sided convexity. New diagnosis but most likely a chronic problem. Medications at Discharge Home Medications atorvastatin 40 mg tablet 40 mg PO QHS cholesterol #30 tabs 05/04/21 buspirone 10 mg tablet 10 mg PO TID #90 tabs 05/04/21 clopidogrel 75 mg tablet 75 mg PO DAILY #30 tabs 05/04/21 metformin 500 mg tablet 500 mg PO BID diabetes #60 tabs 05/04/21 pantoprazole 40 mg tablet,delayed release 40 mg PO DAILY reflux #300 tabs 05/04/21 quetiapine 25 mg tablet 25 mg PO DAILY #120 tabs 05/04/21 saliva substitute combo no.9 (Biotene Dry Mouth Oral Rinse mouthwash) 15 ml mu cous membrane 5X/DAY PRN Dry Mouth #0 mL 05/04/21 cyclobenzaprine 5 mg tablet 5 mg PO TID PRN muscle spasm #10 tabs 01/13/23 lidocaine 5 % topical patch (Lidoderm) 1 patch topical DAILY #15 ea 01/15/23 ergocalciferol (vitamin D2) 1,250 mcg (50,000 unit) capsule (Vitamin D2) 50,000 unit PO MO 01/17/23 ferrous gluconate 324 mg (37.5 mg iron) tablet 150 mg PO BID 01/17/23 guaifenesin 600 mg tablet, extended release 12 hr (Mucinex) 600 mg PO BID 01/17/23 lisinopril 20 mg tablet 40 mg PO DAILY blood pressure 01/17/23 metoprolol succinate 50 mg tablet,extended release 24 hr 50 mg PO BID 01/17/23 quetiapine 25 mg tablet 75 mg PO QHS 01/17/23 acetaminophen 500 mg capsule 1,000 mg PO Q8H #30 caps 01/20/23 oxycodone 5 mg tablet 5 mg PO Q6H PRN pain 3 days #12 tabs 01/20/23 Hospital Course Operations - (L5 kyphoplasty and bone biopsy) Weight / BMI Weight Weight: 59.1 kg Body Mass Index (BMI) 21.0 ABG / Lab / Microbiology Data Result Diagrams: 01/18/23 05:30 01/18/23 05:30 Radiography Diagnostic Testing: Radiology Impression Spine X-Ray 01/19/23 13:30 IMPRESSION: Intraoperative imaging provided for kyphoplasty of the L5 vertebrae. Electronically Signed: Avery Pabon MD at 14:58 EST Reading Location ID and State: [address] [place] [address] , Service support , D/C Instructions Discharge Diet: No restrictions Weight Bearing Status: Weight bearing as tolerated Meaningful Use Info Meaningful Use Diagnoses (Choose all that apply): None applicable Discharge Plan Admission Admit Date/Time: 01/17/23 16:18 Primary Reason for Your Visit: L5 lumbar compression fracture. Attending Provider: Alex Guidry Primary Care Provider: Nevin Pantoja NP Consulting Providers: Vladimir Rowell ; Christiano Maldonado Discharge Orders/Prescriptions Prescriptions: New oxycodone 5 mg tablet 5 mg PO Q6H PRN (Reason: pain) 3 Days Qty: 12 0RF acetaminophen 500 mg capsule 1,000 mg PO Q8H Qty: 30 0RF Continued quetiapine 25 mg Tablet 25 mg PO DAILY Qty: 120 0RF Rx Instructions: Take 1 tab in the AM and 3 tabs at bedtime clopidogrel 75 mg Tablet 75 mg PO DAILY Qty: 30 0RF Biotene Dry Mouth Oral Rinse Mouthwash 15 ml mucous membrane 5X/DAY PRN (Reason: Dry Mouth) Qty: 0 0RF buspirone 10 mg tablet 10 mg PO TID Qty: 90 0RF atorvastatin 40 mg tablet 40 mg PO QHS Qty: 30 0RF metformin 500 MG tablet 500 mg PO BID Qty: 60 0RF pantoprazole 40 MG tablet 40 mg PO DAILY Qty: 300 0RF cyclobenzaprine 5 mg tablet 5 mg PO TID PRN (Reason: muscle spasm) Qty: 10 0RF lidocaine [Lidoderm] 5 % adhesive patch,medicated 1 patch topical DAILY Qty: 15 0RF Rx Instructions: leave on most painful area for up to 12 hrs quetiapine 25 mg tablet 75 mg PO QHS ergocalciferol (vitamin D2) [Vitamin D2] 1,250 mcg (50,000 unit) Capsule 50,000 unit PO MO guaifenesin [Mucinex] 600 mg Tablet Extended Release 12hr 600 mg PO BID metoprolol succinate 50 mg tablet extended release 24 hr 50 mg PO BID lisinopril 20 MG tablet 40 mg PO DAILY ferrous gluconate 324 mg (37.5 mg iron) tablet 150 mg PO BID Rx Instructions: Take this medication with 500 mg of Vitamin C with supper daily Discontinued acetaminophen [Tylenol] 325 mg Tablet 650 mg PO Q6H PRN PRN (Reason: PAIN) Qty: 0 0RF tizanidine 4 mg capsule 4 mg PO Q8H PRN (Reason: muscle spasticity) Qty: 15 0RF Referrals / Follow Up: Christiano Maldonado DO [Med Staff - Active Staff] - Within 2 Weeks Nevin Pantoja NP, JANITOR HELPER-C [Primary Care Provider] - Within 2 Weeks Disposition Disposition (needs filled in before D/C Order can be placed): Home Health Service Charges/Coding Visit Charges Inpatient E&M: 67230 Disch Hosp >30min
[2023-01-20 15:51] VITALS: BP 159/88; PULSE 77; RESP 18; TEMP 36.6; O2SAT 97
== END 2023-01-20 17:31 | disposition home health service (06) ==
LOC: ED 16:08 → MS3 17:02
PROVIDERS: Anesthesiology; Orthopaedic Surgery; Admitting Provider Internal Medicine; Emergency Provider Emergency Medicine; PCP Registered Nurse
PROC: (CPT 22514; principal; 2023-01-19 14:00)
DX: M48.56XA Collapsed vertebra, not elsewhere classified, lumbar region, initial encounter for fracture (principal); I50.32 Chronic diastolic (congestive) heart failure; I13.0 Hypertensive heart and chronic kidney disease with heart failure and stage 1 through stage 4 chronic kidney disease, or unspecified chronic kidney disease; I27.21 Secondary pulmonary arterial hypertension; E11.40 Type 2 diabetes mellitus with diabetic neuropathy, unspecified; E11.22 Type 2 diabetes mellitus with diabetic chronic kidney disease; N18.32 Chronic kidney disease, stage 3b; M47.816 Spondylosis without myelopathy or radiculopathy, lumbar region; G89.29 Other chronic pain; R53.81 Other malaise; M41.85 Other forms of scoliosis, thoracolumbar region; E86.0 Dehydration; M99.23 Subluxation stenosis of neural canal of lumbar region; M48.07 Spinal stenosis, lumbosacral region; Z79.899 Other long term (current) drug therapy; Z79.84 Long term (current) use of oral hypoglycemic drugs; Z79.02 Long term (current) use of antithrombotics/antiplatelets; Z79.82 Long term (current) use of aspirin; F32.A Depression, unspecified; F41.9 Anxiety disorder, unspecified; M41.9 Scoliosis, unspecified; D63.8 Anemia in other chronic diseases classified elsewhere; N39.0 Urinary tract infection, site not specified; B96.1 Klebsiella pneumoniae [K. pneumoniae] as the cause of diseases classified elsewhere; Z96.643 Presence of artificial hip joint, bilateral
CPT/HCPCS: 22514; 01942; 36415; 72020; 72148; 76000; 80048; 81001; 82306; 83036; 85025; 88307; 88311; 93005; 94668; 96361; 96365; 96372; 96375; 97110; 97162; 97166; 97530; 97535; 99221; 99285; J7050; J7120; A4216; G0378; J0696; J2405